=== PATIENT | male | born 1950 | race Caucasian/White ===

== ENCOUNTER 2018-05-08 13:00 | Outpatient (RCR) | payer MEDICARE, MEDICAID, SELFPAY ==
--- NOTE | 2017-08-01 13:52 | PT.OTN ---
Addendum entered and electronically signed by Carmenza Morales, PT 08/01/17 16:48: Transition note: On July 26, 2017 our therapy services consisting of Speech, Occupational, and Physical Therapy transitioned from the [employer] electronic documentation system to a new [employer] electronic documentation system.?? All documentation prior to July 26 can be found under [employer] saved data. From July 26 forward all medical record documentation will be in [email or web address]. Original Note: Current Diagnoses Other chronic pain (08/01/17) Radiculopathy, lumbar region (08/01/17) Abnormal posture (08/01/17) Weakness (08/01/17) Physical Therapy Treatment Note PT-OP-A Visit Information Start: 08/01/17 07:26 Freq: Status: Active Protocol: Activity Type Activity Date Activity User E-Sign Co-Sign Detail Recorded Client Recorded Date Recorded By Document 08/01/17 13:02 [facility] [id number] 08/01/17 13:52 [facility] 08/01/17 13:02 Out-Patient Physical Therapy Visit Information [Visit Information] -Visit Type Treatment Note -Visit Start Time 01:00 -Visit Stop Time 01:55 -Total Visit Minutes 55 -Visit Number 6 -Number of POKER IN Visits 0 PT-OP-C Subjective Start: 08/01/17 07:26 Freq: Status: Active Protocol: Activity Type Activity Date Activity User E-Sign Co-Sign Detail Recorded Client Recorded Date Recorded By Document 08/01/17 13:02 [facility] [id number] 08/01/17 13:52 [facility] 08/01/17 13:02 OP-PT Subjective [Patient Comments] -Patient Comments Reports DO took him off meloxicam so he has noticed inc mm soreness PT-OP-Q Treatments Start: 08/01/17 07:26 Freq: Status: Active Protocol: Activity Type Activity Date Activity User E-Sign Co-Sign Detail Recorded Client Recorded Date Recorded By Document 08/01/17 13:02 [facility] [id number] 08/01/17 13:52 [facility] 08/01/17 13:02 Manual Therapy Treatment [Soft Tissue Mobilization] 2 -Body Location Obturator internus R -Mobilization Type Sustained Pressure -Intensity/Depth Moderate -Body Position Prone 1 -Body Location QL (B) -Mobilization Type Rolling -Body Position Prone [Joint Mobilizations] 2 -Joint innominate -Direction caudal & ER FM -Body Position Prone 1 -Joint sacrum -Direction PA & caudal FM w/LTR -Grade III -Body Position Prone Neuro Re-Education Treatment [Balance Activities] 2 -Details wobble board fwd & to side with EC & head turns 1 -Details vertical & horizonal head turns with walking PT-OP-R Modalities Start: 08/01/17 07:26 Freq: Status: Active Protocol: Activity Type Activity Date Activity User E-Sign Co-Sign Detail Recorded Client Recorded Date Recorded By Document 08/01/17 13:02 [facility] [id number] 08/01/17 13:52 [facility] 08/01/17 13:02 Electric Stimulation [Electric Stimulation] Interferential Current (IFC) -Body Location LS -Duration (Minutes) 10 -Patient Position Prone -Combined With Heat/Cold Cold Pack PT-OP-T Assessment and Plan Start: 08/01/17 07:26 Freq: Status: Active Protocol: Activity Type Activity Date Activity User E-Sign Co-Sign Detail Recorded Client Recorded Date Recorded By Document 08/01/17 13:02 [facility] [id number] 08/01/17 13:52 [facility] 08/01/17 13:02 Physical Therapy Assessment [Assessment Summary] -Assessment Pt is improving with balance on board & with walking with head turns, but cont to have some stumbles with head turns . Pt reports feeling better after manual rx . Physical Therapy Plan [Frequency and Duration] -Frequency of Treatment 1x/Week -Plan of Care End Date 09/25/17 [Next Visit Focus/Plan] -Next Visit Plan Bosu balance exercises, changes in speed with gait , obstacles
--- NOTE | 2017-08-08 13:52 | PT.OTN ---
Current Diagnoses Other chronic pain (08/08/17) Radiculopathy, lumbar region (08/08/17) Abnormal posture (08/08/17) Weakness (08/08/17) Physical Therapy Treatment Note PT-OP-A Visit Information Start: 08/01/17 07:26 Freq: Status: Active Protocol: Document 08/08/17 13:00 [facility] (Rec: 08/08/17 13:52 [facility] [id number]) Out-Patient Physical Therapy Visit Information Visit Information Visit Type Treatment Note Visit Start Time 01:00 Visit Stop Time 01:55 Total Visit Minutes 55 Visit Number 7 Number of SPECIAL DAY CLASS TEACHER Visits 0 PT-OP-C Subjective Start: 08/01/17 07:26 Freq: Status: Active Protocol: Document 08/08/17 13:00 [facility] (Rec: 08/08/17 13:52 [facility] [id number]) OP-PT Subjective Patient Comments Patient Comments Reports thoracic feels tight today. PT-OP-Q Treatments Start: 08/01/17 07:26 Freq: Status: Active Protocol: Document 08/08/17 13:00 [facility] (Rec: 08/08/17 13:52 [facility] [id number]) Manual Therapy Treatment Soft Tissue Mobilization 3 Body Location T-spine paraspinals Mobilization Type Rolling Intensity/Depth Moderate 1 Body Location QL (B) Mobilization Type Rolling Body Position Prone Joint Mobilizations 3 Joint Thoracic Direction PA Grade III Comments FM w/deep breathing T5-12 2 Joint innominate Direction caudal & ER FM Body Position Prone 1 Joint sacrum Direction PA & caudal FM w/LTR Grade III Body Position Prone Neuro Re-Education Treatment Balance Activities 6 Details walking around cones Reps/Duration 6 laps 8 cones 5 Details speed changes Reps/Duration 4 laps of brandon 4 Details hurdles in brandon 3 Details bosu Comments fwd back & lat wt shifts 1 Details vertical & horizonal head turns with walking PT-OP-R Modalities Start: 08/01/17 07:26 Freq: Status: Active Protocol: Document 08/08/17 13:00 [facility] (Rec: 08/08/17 13:52 [facility] [id number]) Electric Stimulation Electric Stimulation Interferential Current (IFC) Body Location LS Duration (Minutes) 10 Patient Position Prone Combined With Heat/Cold Cold Pack PT-OP-T Assessment and Plan Start: 08/01/17 07:26 Freq: Status: Active Protocol: Document 08/08/17 13:00 [facility] (Rec: 08/08/17 13:52 [facility] [id number]) Physical Therapy Assessment Assessment Summary Assessment Pt had difficulty with going over hurdles with maintianing gait pattern, but did well with speed changes and improved ability to do vertical head turns. Pt had improved pelvic mobility but was very tight in thoracic. Physical Therapy Plan Frequency and Duration Frequency of Treatment 1x/Week Plan of Care End Date 09/25/17 Next Visit Focus/Plan Next Visit Plan Cont to work on advancement of balance.
--- NOTE | 2017-08-15 13:51 | PT.OTN ---
Current Diagnoses Other chronic pain (08/15/17) Radiculopathy, lumbar region (08/15/17) Abnormal posture (08/15/17) Weakness (08/15/17) Physical Therapy Treatment Note PT-OP-A Visit Information Start: 08/01/17 07:26 Freq: Status: Active Protocol: Document 08/15/17 12:59 [facility] (Rec: 08/15/17 13:50 [facility] [id number]) Out-Patient Physical Therapy Visit Information Visit Information Visit Type Treatment Note Visit Start Time 01:00 Visit Stop Time 01:55 Total Visit Minutes 55 Visit Number 8 Number of CARD CUTTER HELPER Visits 0 PT-OP-C Subjective Start: 08/01/17 07:26 Freq: Status: Active Protocol: Document 08/15/17 12:59 [facility] (Rec: 08/15/17 13:50 [facility] [id number]) OP-PT Subjective Patient Comments Patient Comments Reports being stiff around sacrum. PT-OP-Q Treatments Start: 08/01/17 07:26 Freq: Status: Active Protocol: Document 08/15/17 12:59 [facility] (Rec: 08/15/17 13:50 [facility] [id number]) Manual Therapy Treatment Soft Tissue Mobilization 2 Body Location Obturator internus R Mobilization Type Sustained Pressure Intensity/Depth Moderate Body Position Prone 1 Body Location QL (B) Mobilization Type Rolling Body Position Prone Joint Mobilizations 4 Joint hip Direction hip on axis ER B Grade III Body Position Prone 2 Joint innominate Direction caudal & ER FM Body Position Prone 1 Joint sacrum Direction PA & caudal FM w/LTR Grade III Body Position Prone Neuro Re-Education Treatment Balance Activities 6 Details walking around cones Reps/Duration 6 laps 8 cones 5 Details speed changes Reps/Duration 4 laps of brandon 4 Details hurdles in brandon Reps/Duration 4 laps 2 Details wobble board fwd & to side with EC & head turns 1 Details vertical & horizonal head turns with walking PT-OP-R Modalities Start: 08/01/17 07:26 Freq: Status: Active Protocol: Document 08/15/17 12:59 [facility] (Rec: 08/15/17 13:51 [facility] [id number]) Electric Stimulation Electric Stimulation Interferential Current (IFC) Body Location LS Duration (Minutes) 10 Patient Position Prone Combined With Heat/Cold Cold Pack PT-OP-T Assessment and Plan Start: 08/01/17 07:26 Freq: Status: Active Protocol: Document 08/15/17 12:59 [facility] (Rec: 08/15/17 13:50 [facility] [id number]) Physical Therapy Assessment Assessment Summary Assessment Pt is improving with his dynamic balance. Improved ability with head turns. Physical Therapy Plan Frequency and Duration Frequency of Treatment 1x/Week Plan of Care End Date 09/25/17 Next Visit Focus/Plan Next Visit Plan Cont to work on advancement of balance. Please Sign and Return: I have reviewed this Plan of Care and certify that the skilled therapy services above are required to meet the patient???s needs. Physician Signature Date Printed Name and Credentials Clinical Instructor Signature Printed Name and Credentials
--- NOTE | 2017-08-30 13:44 | PT.OTN ---
Current Diagnoses Other chronic pain (08/30/17) Radiculopathy, lumbar region (08/30/17) Abnormal posture (08/30/17) Weakness (08/30/17) Physical Therapy Treatment Note PT-OP-A Visit Information Start: 08/01/17 07:26 Freq: Status: Active Protocol: Document 08/30/17 12:58 [facility] (Rec: 08/30/17 13:44 [facility] [id number]) Out-Patient Physical Therapy Visit Information Visit Information Visit Type Treatment Note Visit Start Time 01:00 Visit Stop Time 01:55 Total Visit Minutes 55 Visit Number 9 Number of PRODUCTION GRAPHIC DESIGNER Visits 0 PT-OP-C Subjective Start: 08/01/17 07:26 Freq: Status: Active Protocol: Document 08/30/17 12:58 [facility] (Rec: 08/30/17 13:44 [facility] [id number]) OP-PT Subjective Patient Comments Patient Comments Reports being stiff around sacrum like usual PT-OP-Q Treatments Start: 08/01/17 07:26 Freq: Status: Active Protocol: Document 08/30/17 12:58 [facility] (Rec: 08/30/17 13:44 [facility] [id number]) Manual Therapy Treatment Soft Tissue Mobilization 2 Body Location Obturator internus L Mobilization Type Sustained Pressure Intensity/Depth Moderate Body Position Prone 1 Body Location QL (B) Mobilization Type Rolling Body Position Prone Joint Mobilizations 4 Joint hip Direction hip on axis ER B Grade III Body Position Prone 2 Joint innominate Direction ext, ER, caudal FM Body Position Prone 1 Joint sacrum Direction PA & caudal FM w/LTR Grade III Body Position Prone Neuro Re-Education Treatment Balance Activities 6 Details walking around cones Reps/Duration 6 laps 8 cones 5 Details speed changes Reps/Duration 4 laps of brandon 4 Details hurdles in brandon Reps/Duration 4 laps 2 Details wobble board fwd & to side with EC & head turns 1 Details vertical & horizonal head turns with walking PT-OP-R Modalities Start: 08/01/17 07:26 Freq: Status: Active Protocol: Document 08/30/17 12:58 [facility] (Rec: 08/30/17 13:44 [facility] [id number]) Electric Stimulation Electric Stimulation Interferential Current (IFC) Body Location LS Duration (Minutes) 10 Patient Position Prone Combined With Heat/Cold Cold Pack PT-OP-T Assessment and Plan Start: 08/01/17 07:26 Freq: Status: Active Protocol: Document 08/30/17 12:58 [facility] (Rec: 08/30/17 13:44 [facility] [id number]) Physical Therapy Assessment Assessment Summary Assessment Improved ability with negotiating hurdles & cones today. COnt tigthenss at sacrum & SI joints. Physical Therapy Plan Frequency and Duration Frequency of Treatment 1x/Week Plan of Care End Date 09/25/17 Next Visit Focus/Plan Next Note Type Progress Note Next Visit Plan Cont to work on advancement of balance. Please Sign and Return: I have reviewed this Plan of Care and certify that the skilled therapy services above are required to meet the patient?s needs. Physician Signature Date Printed Name and Credentials Clinical Instructor Signature Printed Name and Credentials
--- NOTE | 2017-09-05 14:09 | PT.OTN ---
Current Diagnoses Other chronic pain (09/05/17) Radiculopathy, lumbar region (09/05/17) Abnormal posture (09/05/17) Weakness (09/05/17) Physical Therapy Treatment Note PT-OP-A Visit Information Start: 08/01/17 07:26 Freq: Status: Active Protocol: Document 09/05/17 13:58 [facility] (Rec: 09/05/17 14:09 [facility] [id number]) Out-Patient Physical Therapy Visit Information Visit Information Visit Type Progress Note Visit Note 10 total visits Visit Start Time 01:00 Visit Stop Time 01:55 Total Visit Minutes 55 Visit Number 1 Number of DIRECTOR MARKET INTELLIGENCE Visits 0 PT-OP-C Subjective Start: 08/01/17 07:26 Freq: Status: Active Protocol: Document 09/05/17 13:58 [facility] (Rec: 09/05/17 14:09 [facility] [id number]) OP-PT Subjective Patient Comments Patient Comments Pt reports he is quite stiff in sacrum & thoracic. PT-OP-M Strength Start: 09/05/17 13:58 Freq: Status: Active Protocol: Document 09/05/17 13:58 [facility] (Rec: 09/05/17 14:09 [facility] [id number]) Hip Strength Hip Manual Muscle Testing Right Flexion (L2) 5 Normal Extension (S1) 4 Good Abduction 4- Good- External Rotation 5 Normal Internal Rotation 5 Normal Comments knee & ankle strength 5/5 B without pain; pain only with IR on R Left Flexion (L2) 5 Normal Extension (S1) 4 Good Abduction 4 Good External Rotation 5 Normal Internal Rotation 5 Normal PT-OP-Q Treatments Start: 08/01/17 07:26 Freq: Status: Active Protocol: Document 09/05/17 13:58 [facility] (Rec: 09/05/17 14:09 [facility] [id number]) Manual Therapy Treatment Soft Tissue Mobilization 3 Body Location T-spine paraspinals Mobilization Type Rolling Intensity/Depth Moderate 1 Body Location QL (B) Mobilization Type Rolling Body Position Prone Joint Mobilizations 4 Joint hip Direction hip on axis ER B Grade III Body Position Prone 3 Joint Thoracic Direction PA Grade III Comments FM w/deep breathing T5-12 2 Joint innominate Direction ext, ER, caudal FM Body Position Prone 1 Joint sacrum Direction PA & caudal FM w/LTR Grade III Body Position Prone Neuro Re-Education Treatment Other Activities 1 Details DGI Comments PT-OP-R Modalities Start: 08/01/17 07:26 Freq: Status: Active Protocol: Document 09/05/17 13:58 [facility] (Rec: 09/05/17 14:09 [facility] [id number]) Electric Stimulation Electric Stimulation Interferential Current (IFC) Body Location LS Duration (Minutes) 10 Patient Position Prone Combined With Heat/Cold Cold Pack PT-OP-T Assessment and Plan Start: 08/01/17 07:26 Freq: Status: Active Protocol: Document 09/05/17 13:58 [facility] (Rec: 09/05/17 14:09 [facility] [id number]) Physical Therapy Assessment Goals Eight Impairment DGI Short Term Goal (STG) 19 STG Duration improving Jail Goal (LTG) 24 LTG Duration 09/25/17 Seven Impairment core Housecleaner Floor Goal (LTG) 3/4 EFT, VCT, LPM LTG Duration 09/25/17 Six Impairment gait Jail Goal (LTG) abnormality to trace LTG Duration 09/25/17 Five Impairment MMT Jail Goal (LTG) 5/ to allow progression of activity tolerance LTG Duration 09/25/17-improving Four Impairment posture Jail Goal (LTG) achieved Three Impairment APRYL Jail Goal (LTG) 9 LTG Duration 09/25/17 Two Impairment pain Jail Goal (LTG) to 3/10 current LTG Duration 09/25/17-improving (4/10) One Impairment positions Short Term Goal (STG) sit to stand w/o pain STG Duration by 10/05/17 Housecleaner Floor Goal (LTG) no greater than 3/10 w/all activities LTG Duration by 11/06/17 Assessment Summary Assessment Today pt did not show much improvement in APRYL or DGI likely d/t pain. He has been improving with balance during sessions & is reporting overall better. Pt has demonstrated good strength gains. Physical Therapy Plan Frequency and Duration Frequency of Treatment 1x/Week Plan of Care End Date 09/25/17 Next Visit Focus/Plan Next Note Type Treatment Note Next Visit Plan Cont to work on advancement of balance. Please Sign and Return: I have reviewed this Plan of Care and certify that the skilled therapy services above are required to meet the patient?s needs. Physician Signature Date Printed Name and Credentials Clinical Instructor Signature Printed Name and Credentials
--- NOTE | 2017-09-05 14:09 | PT.OPPN ---
Current Diagnoses Other chronic pain (09/05/17) Radiculopathy, lumbar region (09/05/17) Abnormal posture (09/05/17) Weakness (09/05/17) Physical Therapy Progress Note PT-OP-A Visit Information Start: 08/01/17 07:26 Freq: Status: Active Protocol: Document 09/05/17 13:58 [facility] (Rec: 09/05/17 14:09 [facility] [id number]) Out-Patient Physical Therapy Visit Information Visit Information Visit Type Progress Note Visit Note 10 total visits Visit Start Time 01:00 Visit Stop Time 01:55 Total Visit Minutes 55 Visit Number 1 Number of VALIDATION SPECIALIST Visits 0 PT-OP-C Subjective Start: 08/01/17 07:26 Freq: Status: Active Protocol: Document 09/05/17 13:58 [facility] (Rec: 09/05/17 14:09 [facility] [id number]) OP-PT Subjective Patient Comments Patient Comments Pt reports he is quite stiff in sacrum & thoracic. PT-OP-M Strength Start: 09/05/17 13:58 Freq: Status: Active Protocol: Document 09/05/17 13:58 [facility] (Rec: 09/05/17 14:09 [facility] [id number]) Hip Strength Hip Manual Muscle Testing Right Flexion (L2) 5 Normal Extension (S1) 4 Good Abduction 4- Good- External Rotation 5 Normal Internal Rotation 5 Normal Comments knee & ankle strength 5/5 B without pain; pain only with IR on R Left Flexion (L2) 5 Normal Extension (S1) 4 Good Abduction 4 Good External Rotation 5 Normal Internal Rotation 5 Normal PT-OP-T Assessment and Plan Start: 08/01/17 07:26 Freq: Status: Active Protocol: Document 09/05/17 13:58 [facility] (Rec: 09/05/17 14:09 [facility] [id number]) Physical Therapy Assessment Goals Eight Impairment DGI Short Term Goal (STG) 19 STG Duration improving Chain Pegger Goal (LTG) 24 LTG Duration 09/25/17 Seven Impairment core Half-Way Goal (LTG) 3/4 EFT, VCT, LPM LTG Duration 09/25/17 Six Impairment gait Chain Pegger Goal (LTG) abnormality to trace LTG Duration 09/25/17 Five Impairment MMT Half-Way Goal (LTG) 5/5 to allow progression of activity tolerance LTG Duration 09/25/17-improving Four Impairment posture Half-Way Goal (LTG) achieved Three Impairment APRYL Chain Pegger Goal (LTG) 9 LTG Duration 09/25/17 Two Impairment pain Half-Way Goal (LTG) to 3/10 current LTG Duration 09/25/17-improving (/) One Impairment positions Short Term Goal (STG) sit to stand w/o pain STG Duration by 10/05/17 Chain Pegger Goal (LTG) no greater than 3/10 w/all activities LTG Duration by 11/06/17 Assessment Summary Assessment Today pt did not show much improvement in APRYL or DGI likely d/t pain. He has been improving with balance during sessions & is reporting overall better. Pt has demonstrated good strength gains. Physical Therapy Plan Frequency and Duration Frequency of Treatment 1x/Week Plan of Care End Date 09/25/17 Next Visit Focus/Plan Next Note Type Treatment Note Next Visit Plan Cont to work on advancement of balance.
--- NOTE | 2017-09-12 13:49 | PT.OTN ---
Current Diagnoses Other chronic pain (09/12/17) Radiculopathy, lumbar region (09/12/17) Abnormal posture (09/12/17) Weakness (09/12/17) Physical Therapy Treatment Note PT-OP-A Visit Information Start: 08/01/17 07:26 Freq: Status: Active Protocol: Document 09/12/17 13:01 [facility] (Rec: 09/12/17 13:49 [facility] [id number]) Out-Patient Physical Therapy Visit Information Visit Information Visit Type Treatment Note Visit Note 11 total Visit Start Time 01:00 Visit Stop Time 01:55 Total Visit Minutes 55 Visit Number 2 Number of DRAPERY HEMMER AUTOMATIC Visits 0 PT-OP-C Subjective Start: 08/01/17 07:26 Freq: Status: Active Protocol: Document 09/12/17 13:01 [facility] (Rec: 09/12/17 13:49 [facility] [id number]) OP-PT Subjective Patient Comments Patient Comments overall better today PT-OP-M Strength Start: 09/05/17 13:58 Freq: Status: Active Protocol: Document 09/05/17 13:58 [facility] (Rec: 09/05/17 14:09 [facility] [id number]) Hip Strength Hip Manual Muscle Testing Right Flexion (L2) 5 Normal Extension (S1) 4 Good Abduction 4- Good- External Rotation 5 Normal Internal Rotation 5 Normal Comments knee & ankle strength 5/5 B without pain; pain only with IR on R Left Flexion (L2) 5 Normal Extension (S1) 4 Good Abduction 4 Good External Rotation 5 Normal Internal Rotation 5 Normal PT-OP-Q Treatments Start: 08/01/17 07:26 Freq: Status: Active Protocol: Document 09/12/17 13:01 [facility] (Rec: 09/12/17 13:49 [facility] [id number]) Manual Therapy Treatment Soft Tissue Mobilization 1 Body Location QL (B) Mobilization Type Rolling Body Position Prone Joint Mobilizations 4 Joint hip Direction hip on axis ER B Grade III Body Position Prone 2 Joint innominate Direction ext, ER, caudal FM Body Position Prone 1 Joint sacrum Direction PA & caudal FM w/LTR Grade III Body Position Prone Neuro Re-Education Treatment Balance Activities 7 Details sidestep Equipment yellow tband Reps/Duration 2x20ft 4 Details hurdles in brandon Reps/Duration 4 laps Comments close then spread 2 Details wobble board fwd & to side with EC & head turns 1 Details vertical & horizonal head turns with walking PT-OP-R Modalities Start: 08/01/17 07:26 Freq: Status: Active Protocol: Document 09/12/17 13:01 [facility] (Rec: 09/12/17 13:49 [facility] [id number]) Electric Stimulation Electric Stimulation Interferential Current (IFC) Body Location LS Duration (Minutes) 10 Patient Position Prone Combined With Heat/Cold Cold Pack PT-OP-T Assessment and Plan Start: 08/01/17 07:26 Freq: Status: Active Protocol: Document 09/12/17 13:01 [facility] (Rec: 09/12/17 13:49 [facility] [id number]) Physical Therapy Assessment Goals Eight Impairment DGI Short Term Goal (STG) 19 STG Duration improving Associate Field Service Engineer Goal (LTG) 24 LTG Duration 09/25/17 Seven Impairment core Nursing Home Goal (LTG) 3/4 EFT, VCT, LPM LTG Duration 09/25/17 Six Impairment gait Nursing Home Goal (LTG) abnormality to trace LTG Duration 09/25/17 Five Impairment MMT Associate Field Service Engineer Goal (LTG) 5/5 to allow progression of activity tolerance LTG Duration 09/25/17-improving Four Impairment posture Associate Field Service Engineer Goal (LTG) achieved Three Impairment APRYL Associate Field Service Engineer Goal (LTG) 9 LTG Duration 09/25/17 Two Impairment pain Associate Field Service Engineer Goal (LTG) to 3/10 current LTG Duration 09/25/17-improving (4/10) One Impairment positions Short Term Goal (STG) sit to stand w/o pain STG Duration by 10/05/17 Nursing Home Goal (LTG) no greater than 3/10 w/all activities LTG Duration by 11/06/17 Assessment Summary Assessment Pt did better with balance exercises today. Difficulty with side step w/resistance. Physical Therapy Plan Frequency and Duration Frequency of Treatment 1x/Week Plan of Care End Date 09/25/17 Next Visit Focus/Plan Next Note Type Treatment Note Next Visit Plan Cont to work on advancement of balance.
--- NOTE | 2017-09-19 15:32 | PT.OTN ---
Current Diagnoses Other chronic pain (09/19/17) Radiculopathy, lumbar region (09/19/17) Abnormal posture (09/19/17) Weakness (09/19/17) Physical Therapy Treatment Note PT-OP-A Visit Information Start: 08/01/17 07:26 Freq: Status: Active Protocol: Document 09/19/17 13:02 [facility] (Rec: 09/19/17 15:31 [facility] [id number]) Out-Patient Physical Therapy Visit Information Visit Information Visit Type Treatment Note Visit Note 12 total Visit Start Time 01:05 Visit Stop Time 01:55 Total Visit Minutes 50 Visit Number 3 Number of JAPANESE INTERPRETER Visits 0 PT-OP-C Subjective Start: 08/01/17 07:26 Freq: Status: Active Protocol: Document 09/19/17 13:02 [facility] (Rec: 09/19/17 15:31 [facility] [id number]) OP-PT Subjective Patient Comments Patient Comments Reports sore d/t a lot of gardening and organizing PT-OP-M Strength Start: 09/05/17 13:58 Freq: Status: Active Protocol: Document 09/05/17 13:58 [facility] (Rec: 09/05/17 14:09 [facility] [id number]) Hip Strength Hip Manual Muscle Testing Right Flexion (L2) 5 Normal Extension (S1) 4 Good Abduction 4- Good- External Rotation 5 Normal Internal Rotation 5 Normal Comments knee & ankle strength 5/5 B without pain; pain only with IR on R Left Flexion (L2) 5 Normal Extension (S1) 4 Good Abduction 4 Good External Rotation 5 Normal Internal Rotation 5 Normal PT-OP-Q Treatments Start: 08/01/17 07:26 Freq: Status: Active Protocol: Document 09/19/17 13:02 [facility] (Rec: 09/19/17 15:31 [facility] [id number]) Manual Therapy Treatment Soft Tissue Mobilization 3 Body Location T-spine paraspinals Mobilization Type Rolling Intensity/Depth Moderate 1 Body Location QL (B) Mobilization Type Rolling Body Position Prone Joint Mobilizations 4 Joint hip Direction hip on axis ER B Grade III Body Position Prone 2 Joint innominate Direction ext, ER, caudal FM Body Position Prone 1 Joint sacrum Direction PA & caudal FM w/LTR Grade III Body Position Prone Neuro Re-Education Treatment Balance Activities 4 Details hurdles in brandon Reps/Duration 2 laps Comments spread 3 Details tandem and SLS 1 Details vertical & horizonal head turns with walking PT-OP-R Modalities Start: 08/01/17 07:26 Freq: Status: Active Protocol: Document 09/19/17 13:02 [facility] (Rec: 09/19/17 15:31 [facility] [id number]) Electric Stimulation Electric Stimulation Interferential Current (IFC) Body Location LS Duration (Minutes) 10 Patient Position Prone Combined With Heat/Cold Cold Pack PT-OP-T Assessment and Plan Start: 08/01/17 07:26 Freq: Status: Active Protocol: Document 09/19/17 13:02 [facility] (Rec: 09/19/17 15:31 [facility] [id number]) Physical Therapy Assessment Goals Eight Impairment DGI Short Term Goal (STG) 19 STG Duration improving Alf Goal (LTG) 24 LTG Duration 09/25/17 Seven Impairment core Alf Goal (LTG) 3/4 EFT, VCT, LPM LTG Duration 09/25/17 Six Impairment gait Pizza Chef Goal (LTG) abnormality to trace LTG Duration 09/25/17 Five Impairment MMT Alf Goal (LTG) 5/5 to allow progression of activity tolerance LTG Duration 09/25/17-improving Four Impairment posture Pizza Chef Goal (LTG) achieved Three Impairment APRYL Pizza Chef Goal (LTG) 9 LTG Duration 09/25/17 Two Impairment pain Pizza Chef Goal (LTG) to 3/10 current LTG Duration 09/25/17-improving (4/10) One Impairment positions Short Term Goal (STG) sit to stand w/o pain STG Duration by 10/05/17 Pizza Chef Goal (LTG) no greater than 3/10 w/all activities LTG Duration by 11/06/17 Assessment Summary Assessment Pt did better with vertical head turns and hurdles but cont to have weakness in glutes causing unsteadiness with dynamic balance exercises . Physical Therapy Plan Frequency and Duration Frequency of Treatment 1x/Week Plan of Care End Date 09/25/17 Next Visit Focus/Plan Next Note Type Progress Note Next Visit Plan Cont to work on advancement of balance.
--- NOTE | 2017-09-26 15:10 | PT.OTN ---
Current Diagnoses Other chronic pain (09/26/17) Radiculopathy, lumbar region (09/26/17) Abnormal posture (09/26/17) Weakness (09/26/17) Physical Therapy Treatment Note PT-OP-A Visit Information Start: 08/01/17 07:26 Freq: Status: Active Protocol: Document 09/26/17 14:52 [facility] (Rec: 09/26/17 15:10 [facility] [id number]) Out-Patient Physical Therapy Visit Information Visit Information Visit Type Progress Note Visit Note 13 total Visit Start Time 01:05 Visit Stop Time 01:55 Total Visit Minutes 50 Visit Number 1 Number of FRONT OFFICE JAVA DEVELOPER Visits 0 PT-OP-C Subjective Start: 08/01/17 07:26 Freq: Status: Active Protocol: Document 09/26/17 14:52 [facility] (Rec: 09/26/17 15:10 [facility] [id number]) OP-PT Subjective Patient Comments Patient Comments Reports he has still been doing a lot of organizing PT-OP-M Strength Start: 09/05/17 13:58 Freq: Status: Active Protocol: Document 09/05/17 13:58 [facility] (Rec: 09/05/17 14:09 [facility] [id number]) Hip Strength Hip Manual Muscle Testing Right Flexion (L2) 5 Normal Extension (S1) 4 Good Abduction 4- Good- External Rotation 5 Normal Internal Rotation 5 Normal Comments knee & ankle strength 5/5 B without pain; pain only with IR on R Left Flexion (L2) 5 Normal Extension (S1) 4 Good Abduction 4 Good External Rotation 5 Normal Internal Rotation 5 Normal PT-OP-Q Treatments Start: 08/01/17 07:26 Freq: Status: Active Protocol: Document 09/26/17 14:52 [facility] (Rec: 09/26/17 15:10 [facility] [id number]) Therapeutic Activity Therapeutic Activity 2 Name Lifting mechanics Comments no twisting & avoiding back bending 1 Name supported sitting positioning edu Comments Pt tends to sit in post tilt & slouched position Manual Therapy Treatment Soft Tissue Mobilization 3 Body Location T-spine & Lumbar paraspinals Mobilization Type Rolling Intensity/Depth Moderate 1 Body Location QL (B) Mobilization Type Rolling Body Position Prone Joint Mobilizations 1 Joint sacrum Direction PA & caudal FM w/LTR Grade III Body Position Prone Neuro Re-Education Treatment Balance Activities 5 Details vertical & horizontal head turns on bella foam Comments attempted stance on 1 dynadisc but too difficult for pt 4 Details hurdles in brandon Reps/Duration 4 laps Comments spread PT-OP-R Modalities Start: 08/01/17 07:26 Freq: Status: Active Protocol: Document 09/26/17 14:52 [facility] (Rec: 09/26/17 15:10 [facility] [id number]) Electric Stimulation Electric Stimulation Interferential Current (IFC) Body Location LS Duration (Minutes) 10 Patient Position Prone Combined With Heat/Cold Cold Pack PT-OP-T Assessment and Plan Start: 08/01/17 07:26 Freq: Status: Active Protocol: Document 09/26/17 14:52 [facility] (Rec: 09/26/17 15:10 [facility] [id number]) Physical Therapy Assessment Impairments Impairments Activity Tolerance Balance Functional Activities Functional Mobility Gait Pain Posture ROM Soft Tissue Mobility Strength Goals Eight Impairment DGI Short Term Goal (STG) 19 STG Duration improving Magician Helper Goal (LTG) 24 LTG Duration 11/27/17 Seven Impairment core Magician Helper Goal (LTG) 3/4 EFT, VCT, LPM LTG Duration 11/27/17 Six Impairment gait Magician Helper Goal (LTG) abnormality to trace LTG Duration 11/27/17 Five Impairment MMT Magician Helper Goal (LTG) 5/5 to allow progression of activity tolerance LTG Duration 11/27/17-improving Four Impairment posture Magician Helper Goal (LTG) achieved Three Impairment APRYL Alf Goal (LTG) 9 LTG Duration 11/27/17 Two Impairment pain Magician Helper Goal (LTG) to 3/10 current LTG Duration 11/27/17-improving (4/10) One Impairment positions Short Term Goal (STG) sit to stand w/o pain STG Duration by 10/26/17 Magician Helper Goal (LTG) no greater than 3/10 w/all activities LTG Duration by 11/27/17 Progress Towards Goals Progress Towards Goals Slow Progress due to Medical Issues Progress Comments Pt is slowly progressing d/t chronicity of original injuries. Assessment Summary Assessment Improved balance today with hurdles. Pt required sig re edu re: positioning in chair & lifting mechanics Physical Therapy Plan Frequency and Duration Frequency of Treatment 1x/Week Plan of Care Start Date 09/26/17 Plan of Care End Date 11/27/17 Therapeutic Interventions Therapeutic Interventions Balance Training Gait Training Home Exercise Program Joint Mobilizations Manual Therapy Soft Tissue Mobilization Taping Therapeutic Activities Therapeutic Exercises Modalities Cold Pack/Ice Massage Electric Stimulation Hot Packs Ultrasound Next Visit Focus/Plan Next Note Type Treatment Note Next Visit Plan Cont to work on advancement of balance & core first strategies for lifting
--- NOTE | 2017-09-26 15:10 | PT.OPPOC ---
Current Diagnoses Other chronic pain (09/26/17) Radiculopathy, lumbar region (09/26/17) Abnormal posture (09/26/17) Weakness (09/26/17) Provider Visit Care Team Role Provider Type Lita Devine MD Attending Provider Non-Staff Specialty: Medical Address: [address] [place] [phone] Email: Plan Of Care PT-OP-T Assessment and Plan Start: 08/01/17 07:26 Freq: Status: Active Protocol: Document 09/26/17 14:52 [facility] (Rec: 09/26/17 15:10 [facility] [id number]) Physical Therapy Assessment Impairments Impairments Activity Tolerance Balance Functional Activities Functional Mobility Gait Pain Posture ROM Soft Tissue Mobility Strength Goals Eight Impairment DGI Short Term Goal (STG) 19 STG Duration improving Senior Living Goal (LTG) 24 LTG Duration 11/27/17 Seven Impairment core Senior Living Goal (LTG) 3/4 EFT, VCT, LPM LTG Duration 11/27/17 Six Impairment gait Reel Fed Printer Goal (LTG) abnormality to trace LTG Duration 11/27/17 Five Impairment MMT Senior Living Goal (LTG) 5/5 to allow progression of activity tolerance LTG Duration 11/27/17-improving Four Impairment posture Reel Fed Printer Goal (LTG) achieved Three Impairment APRYL Senior Living Goal (LTG) 9 LTG Duration 11/27/17 Two Impairment pain Senior Living Goal (LTG) to 3/10 current LTG Duration 11/27/17-improving (4/10) One Impairment positions Short Term Goal (STG) sit to stand w/o pain STG Duration by 10/26/17 Reel Fed Printer Goal (LTG) no greater than 3/10 w/all activities LTG Duration by 11/27/17 Progress Towards Goals Progress Towards Goals Slow Progress due to Medical Issues Progress Comments Pt is slowly progressing d/t chronicity of original injuries. Assessment Summary Assessment Improved balance today with hurdles. Pt required sig re edu re: positioning in chair & lifting mechanics Physical Therapy Plan Frequency and Duration Frequency of Treatment 1x/Week Plan of Care Start Date 09/26/17 Plan of Care End Date 11/27/17 Therapeutic Interventions Therapeutic Interventions Balance Training Gait Training Home Exercise Program Joint Mobilizations Manual Therapy Soft Tissue Mobilization Taping Therapeutic Activities Therapeutic Exercises Modalities Cold Pack/Ice Massage Electric Stimulation Hot Packs Ultrasound Next Visit Focus/Plan Next Note Type Treatment Note Next Visit Plan Cont to work on advancement of balance & core first strategies for lifting Plan of Care Dates Plan of Care Start Date 09/26/17 Plan of Care End Date 11/27/17 Please Sign and Return: I have reviewed this Plan of Care and certify that the skilled therapy services above are required to meet the patient?s needs. Physician Signature Date Printed Name and Credentials Clinical Instructor Signature Printed Name and Credentials
--- NOTE | 2017-10-03 13:47 | PT.OTN ---
Current Diagnoses Other chronic pain (10/03/17) Radiculopathy, lumbar region (10/03/17) Abnormal posture (10/03/17) Weakness (10/03/17) Physical Therapy Treatment Note PT-OP-A Visit Information Start: 08/01/17 07:26 Freq: Status: Active Protocol: Document 10/03/17 13:01 [facility] (Rec: 10/03/17 13:47 [facility] [id number]) Out-Patient Physical Therapy Visit Information Visit Information Visit Type Progress Note Visit Note 14 total Visit Start Time 01:00 Visit Stop Time 01:50 Total Visit Minutes 50 Visit Number 2/ Number of FOOD TRADES ASSISTANTS Visits 0 PT-OP-C Subjective Start: 08/01/17 07:26 Freq: Status: Active Protocol: Document 10/03/17 13:01 [facility] (Rec: 10/03/17 13:47 [facility] [id number]) OP-PT Subjective Patient Comments Patient Comments Reports he noticed a big difference with change is positioning of his body when lifting PT-OP-M Strength Start: 09/05/17 13:58 Freq: Status: Active Protocol: Document 09/05/17 13:58 [facility] (Rec: 09/05/17 14:09 [facility] [id number]) Hip Strength Hip Manual Muscle Testing Right Flexion (L2) 5 Normal Extension (S1) 4 Good Abduction 4- Good- External Rotation 5 Normal Internal Rotation 5 Normal Comments knee & ankle strength 5/5 B without pain; pain only with IR on R Left Flexion (L2) 5 Normal Extension (S1) 4 Good Abduction 4 Good External Rotation 5 Normal Internal Rotation 5 Normal PT-OP-Q Treatments Start: 08/01/17 07:26 Freq: Status: Active Protocol: Document 10/03/17 13:01 [facility] (Rec: 10/03/17 13:47 [facility] [id number]) Manual Therapy Treatment Soft Tissue Mobilization 1 Body Location QL (B) Mobilization Type Myofascial Release Body Position Prone Comments w/LTR Joint Mobilizations 5 Joint lumbar Direction L transverse Comments FM w/R IR & basking seal 1 Joint sacrum Direction caudal FM w/LTR Grade III Body Position Prone Neuro Re-Education Treatment Balance Activities 4 Details hurdles in brandon Reps/Duration 4 laps Comments spread 3 Details tandem and SLS 1 Details vertical & horizonal head turns with walking PT-OP-R Modalities Start: 08/01/17 07:26 Freq: Status: Active Protocol: Document 10/03/17 13:01 [facility] (Rec: 10/03/17 13:47 [facility] [id number]) Electric Stimulation Electric Stimulation Interferential Current (IFC) Body Location LS Duration (Minutes) 10 Patient Position Prone Combined With Heat/Cold Cold Pack PT-OP-T Assessment and Plan Start: 08/01/17 07:26 Freq: Status: Active Protocol: Document 10/03/17 13:01 [facility] (Rec: 10/03/17 13:47 [facility] [id number]) Physical Therapy Assessment Goals Eight Impairment DGI Short Term Goal (STG) 19 STG Duration improving Senior Living Goal (LTG) 24 LTG Duration 11/27/17 Seven Impairment core Senior Living Goal (LTG) 3/4 EFT, VCT, LPM LTG Duration 11/27/17 Six Impairment gait Senior Living Goal (LTG) abnormality to trace LTG Duration 11/27/17 Five Impairment MMT Senior Living Goal (LTG) 5/5 to allow progression of activity tolerance LTG Duration 11/27/17-improving Three Impairment APRYL Computing Machine Operator Goal (LTG) 9 LTG Duration 11/27/17 Two Impairment pain Computing Machine Operator Goal (LTG) to 3/10 current LTG Duration 11/27/17-improving (4/10) One Impairment positions Short Term Goal (STG) sit to stand w/o pain STG Duration by 10/26/17 Senior Living Goal (LTG) no greater than 3/10 w/all activities LTG Duration by 11/27/17 Assessment Summary Assessment Improved sidebend after lumbar mobilization. Improved balance over hurdles & with head turns today Physical Therapy Plan Frequency and Duration Frequency of Treatment 1x/Week Plan of Care Start Date 09/26/17 Plan of Care End Date 11/27/17 Next Visit Focus/Plan Next Note Type Treatment Note Next Visit Plan Cont to work on advancement of balance & core first strategies for lifting
--- NOTE | 2017-10-10 16:11 | PT.OTN ---
Current Diagnoses Other chronic pain (10/10/17) Radiculopathy, lumbar region (10/10/17) Abnormal posture (10/10/17) Weakness (10/10/17) Physical Therapy Treatment Note PT-OP-A Visit Information Start: 08/01/17 07:26 Freq: Status: Active Protocol: Document 10/10/17 16:05 [facility] (Rec: 10/10/17 16:11 [facility] [id number]) Out-Patient Physical Therapy Visit Information Visit Information Visit Type Progress Note Visit Note 15 total Visit Start Time 13:00 Visit Stop Time 14:00 Total Visit Minutes 60 Visit Number 3/ Number of SENIOR MANAGER CREATIVE SERVICES Visits 0 PT-OP-C Subjective Start: 08/01/17 07:26 Freq: Status: Active Protocol: Document 10/10/17 16:05 [facility] (Rec: 10/10/17 16:11 [facility] [id number]) OP-PT Subjective Patient Comments Patient Comments Finished a lot of his work, but his back is sore. PT-OP-M Strength Start: 09/05/17 13:58 Freq: Status: Active Protocol: Document 09/05/17 13:58 [facility] (Rec: 09/05/17 14:09 [facility] [id number]) Hip Strength Hip Manual Muscle Testing Right Flexion (L2) 5 Normal Extension (S1) 4 Good Abduction 4- Good- External Rotation 5 Normal Internal Rotation 5 Normal Comments knee & ankle strength 5/5 B without pain; pain only with IR on R Left Flexion (L2) 5 Normal Extension (S1) 4 Good Abduction 4 Good External Rotation 5 Normal Internal Rotation 5 Normal PT-OP-Q Treatments Start: 08/01/17 07:26 Freq: Status: Active Protocol: Document 10/10/17 16:05 [facility] (Rec: 10/10/17 16:11 [facility] [id number]) Therapeutic Exercises Standing Exercises 1 Standing Exercise Name wall squat Therapeutic Activity Therapeutic Activity 2 Name Lifting mechanics Comments no twisting & avoiding back bending hip hinge & squat with yard stick on back Manual Therapy Treatment Soft Tissue Mobilization 3 Body Location T-spine & Lumbar paraspinals Mobilization Type Rolling Intensity/Depth Moderate 1 Body Location QL (B) Mobilization Type Myofascial Release Body Position Prone Comments w/LTR Joint Mobilizations 4 Joint hip Direction hip on axis ER B Grade III Body Position Prone 1 Joint sacrum Direction caudal FM w/LTR Grade III Body Position Prone PT-OP-R Modalities Start: 08/01/17 07:26 Freq: Status: Active Protocol: Document 10/10/17 13:01 [facility] (Rec: 10/10/17 16:11 [facility] [id number]) Electric Stimulation Electric Stimulation Interferential Current (IFC) Body Location LS Duration (Minutes) 15 Patient Position Prone Combined With Heat/Cold Cold Pack PT-OP-T Assessment and Plan Start: 08/01/17 07:26 Freq: Status: Active Protocol: Document 10/10/17 16:05 [facility] (Rec: 10/10/17 16:11 [facility] [id number]) Physical Therapy Assessment Goals Eight Impairment DGI Short Term Goal (STG) 19 STG Duration improving Residential Goal (LTG) 24 LTG Duration 11/27/17 Seven Impairment core Aircraft Painter Goal (LTG) 3/4 EFT, VCT, LPM LTG Duration 11/27/17 Six Impairment gait Aircraft Painter Goal (LTG) abnormality to trace LTG Duration 11/27/17 Five Impairment MMT Residential Goal (LTG) 5/5 to allow progression of activity tolerance LTG Duration 11/27/17-improving Three Impairment APRYL Aircraft Painter Goal (LTG) 9 LTG Duration 11/27/17 Two Impairment pain Residential Goal (LTG) to 3/10 current LTG Duration 11/27/17-improving (4/10) One Impairment positions Short Term Goal (STG) sit to stand w/o pain STG Duration by 10/26/17 Aircraft Painter Goal (LTG) no greater than 3/10 w/all activities LTG Duration by 11/27/17 Assessment Summary Assessment Pt unable to do hip hinge or squat without flexing spine. Pt had signifcant tightness in lumbar & thoracic paraspinals today. Physical Therapy Plan Frequency and Duration Frequency of Treatment 1x/Week Plan of Care Start Date 09/26/17 Plan of Care End Date 11/27/17 Next Visit Focus/Plan Next Note Type Treatment Note Next Visit Plan Cont to work on advancement of balance & core first strategies for lifting
--- NOTE | 2017-10-17 14:06 | PT.OTN ---
Current Diagnoses Other chronic pain (10/17/17) Radiculopathy, lumbar region (10/17/17) Abnormal posture (10/17/17) Weakness (10/17/17) Physical Therapy Treatment Note PT-OP-A Visit Information Start: 08/01/17 07:26 Freq: Status: Active Protocol: Document 10/17/17 13:48 [facility] (Rec: 10/17/17 14:06 [facility] [id number]) Out-Patient Physical Therapy Visit Information Visit Information Visit Type Treatment Note Visit Note 16 total Visit Start Time 13:00 Visit Stop Time 14:00 Total Visit Minutes 60 Visit Number 4/ Number of DIGITAL IMAGER Visits 0 PT-OP-C Subjective Start: 08/01/17 07:26 Freq: Status: Active Protocol: Document 10/17/17 13:48 [facility] (Rec: 10/17/17 14:06 [facility] [id number]) OP-PT Subjective Patient Comments Patient Comments Reports he has been working on his hip hinge PT-OP-M Strength Start: 09/05/17 13:58 Freq: Status: Active Protocol: Document 09/05/17 13:58 [facility] (Rec: 09/05/17 14:09 [facility] [id number]) Hip Strength Hip Manual Muscle Testing Right Flexion (L2) 5 Normal Extension (S1) 4 Good Abduction 4- Good- External Rotation 5 Normal Internal Rotation 5 Normal Comments knee & ankle strength 5/5 B without pain; pain only with IR on R Left Flexion (L2) 5 Normal Extension (S1) 4 Good Abduction 4 Good External Rotation 5 Normal Internal Rotation 5 Normal PT-OP-Q Treatments Start: 08/01/17 07:26 Freq: Status: Active Protocol: Document 10/17/17 13:48 [facility] (Rec: 10/17/17 14:06 [facility] [id number]) Therapeutic Exercises Standing Exercises 2 Standing Exercise Name hip hinge Comments extended time to work on neutral back position with ruler & butt to wall 1 Standing Exercise Name mini squat Reps/Minutes 15 Comments focus on back mechanics Therapeutic Activity Therapeutic Activity 2 Comments hinge hinge and avoiding flex & twisting at same time to look/pickling machine operator magazines 1 Name Discussed body position on leg press machine Neuro Re-Education Treatment Balance Activities 8 Details [place] 4 Details hurdles in brandon Reps/Duration 4 laps Comments spread 1 Details vertical & horizonal head turns with walking Reps/Duration 6 laps PT-OP-R Modalities Start: 08/01/17 07:26 Freq: Status: Active Protocol: Document 10/17/17 13:48 [facility] (Rec: 10/17/17 14:06 [facility] [id number]) Electric Stimulation Electric Stimulation Interferential Current (IFC) Body Location LS Duration (Minutes) 15 Patient Position Prone Combined With Heat/Cold Cold Pack PT-OP-T Assessment and Plan Start: 08/01/17 07:26 Freq: Status: Active Protocol: Document 10/17/17 13:48 [facility] (Rec: 10/17/17 14:06 [facility] [id number]) Physical Therapy Assessment Goals Eight Impairment DGI Short Term Goal (STG) 19 STG Duration improving Fretted Instruments Inspector Goal (LTG) 24 LTG Duration 11/27/17 Seven Impairment core Nursing Home Goal (LTG) 3/4 EFT, VCT, LPM LTG Duration 11/27/17 Six Impairment gait Fretted Instruments Inspector Goal (LTG) abnormality to trace LTG Duration 11/27/17 Five Impairment MMT Fretted Instruments Inspector Goal (LTG) 5/5 to allow progression of activity tolerance LTG Duration 11/27/17-improving Three Impairment APRYL Nursing Home Goal (LTG) 9 LTG Duration 11/27/17 Two Impairment pain Fretted Instruments Inspector Goal (LTG) to 3/10 current LTG Duration 11/27/17-improving (4/10) One Impairment positions Short Term Goal (STG) sit to stand w/o pain STG Duration by 10/26/17 Nursing Home Goal (LTG) no greater than 3/10 w/all activities LTG Duration by 11/27/17 Assessment Summary Assessment Pt had improved squat and hip hinge form. Pt doing well with balance exercises today and able to do head turns while amb with only minor deviations . Physical Therapy Plan Frequency and Duration Frequency of Treatment 1x/Week Plan of Care Start Date 09/26/17 Plan of Care End Date 11/27/17 Next Visit Focus/Plan Next Note Type Treatment Note Next Visit Plan Cont to work on advancement of balance & core first strategies for lifting
--- NOTE | 2017-10-24 16:22 | PT.OTN ---
Current Diagnoses Other chronic pain (10/24/17) Radiculopathy, lumbar region (10/24/17) Abnormal posture (10/24/17) Weakness (10/24/17) Physical Therapy Treatment Note PT-OP-A Visit Information Start: 08/01/17 07:26 Freq: Status: Active Protocol: Document 10/24/17 16:17 [facility] (Rec: 10/24/17 16:22 [facility] [id number]) Out-Patient Physical Therapy Visit Information Visit Information Visit Type Treatment Note Visit Note 17 total Visit Start Time 13:00 Visit Stop Time 13:55 Total Visit Minutes 55 Visit Number 5/ Number of AIR TRAFFIC CONTROL OPERATOR Visits 0 PT-OP-C Subjective Start: 08/01/17 07:26 Freq: Status: Active Protocol: Document 10/24/17 16:17 [facility] (Rec: 10/24/17 16:22 [facility] [id number]) OP-PT Subjective Patient Comments Patient Comments Reports his back has felt locked up. PT-OP-M Strength Start: 09/05/17 13:58 Freq: Status: Active Protocol: Document 09/05/17 13:58 [facility] (Rec: 09/05/17 14:09 [facility] [id number]) Hip Strength Hip Manual Muscle Testing Right Flexion (L2) 5 Normal Extension (S1) 4 Good Abduction 4- Good- External Rotation 5 Normal Internal Rotation 5 Normal Comments knee & ankle strength 5/5 B without pain; pain only with IR on R Left Flexion (L2) 5 Normal Extension (S1) 4 Good Abduction 4 Good External Rotation 5 Normal Internal Rotation 5 Normal PT-OP-Q Treatments Start: 08/01/17 07:26 Freq: Status: Active Protocol: Document 10/24/17 16:17 [facility] (Rec: 10/24/17 16:22 [facility] [email or web address]) Therapeutic Exercises Supine Exercises 2 Supine Exercise Name bridging Reps/Minutes 15 1 Supine Exercise Name Shan test stretch Comments mult review of sequence to avoid hurting LB Standing Exercises 3 Standing Exercise Name may Comments pt unabl to achieve post depression & was painful Manual Therapy Treatment Soft Tissue Mobilization 3 Body Location T-spine & Lumbar paraspinals Mobilization Type Rolling Intensity/Depth Moderate 1 Body Location QL (B) Mobilization Type Myofascial Release Body Position Prone Comments w/LTR Joint Mobilizations 4 Joint hip Direction hip on axis ER B Grade III Body Position Prone 2 Joint innominate Direction caudal R FM 1 Joint sacrum Direction caudal & PA FM w/LTR Grade III Body Position Prone PT-OP-R Modalities Start: 08/01/17 07:26 Freq: Status: Active Protocol: Document 10/24/17 16:17 [facility] (Rec: 10/24/17 16:22 [facility] [id number]) Electric Stimulation Electric Stimulation Interferential Current (IFC) Body Location LS Duration (Minutes) 15 Patient Position Prone Combined With Heat/Cold Cold Pack PT-OP-T Assessment and Plan Start: 08/01/17 07:26 Freq: Status: Active Protocol: Document 10/24/17 16:17 [facility] (Rec: 10/24/17 16:22 [facility] [email or web address]) Physical Therapy Assessment Goals Eight Impairment DGI Short Term Goal (STG) 19 STG Duration improving Mine Motor Engineer Goal (LTG) 24 LTG Duration 11/27/17 Seven Impairment core Longterm Goal (LTG) 3/4 EFT, VCT, LPM LTG Duration 11/27/17 Six Impairment gait Mine Motor Engineer Goal (LTG) abnormality to trace LTG Duration 11/27/17 Five Impairment MMT Longterm Goal (LTG) 5/5 to allow progression of activity tolerance LTG Duration 11/27/17-improving Three Impairment APRYL Longterm Goal (LTG) 9 LTG Duration 11/27/17 Two Impairment pain Longterm Goal (LTG) to 3/10 current LTG Duration 11/27/17-improving (4/10) One Impairment positions Short Term Goal (STG) sit to stand w/o pain STG Duration by 10/26/17 Mine Motor Engineer Goal (LTG) no greater than 3/10 w/all activities LTG Duration by 11/27/17 Assessment Summary Assessment Pt required cueing for performance of shan test stretch he has been doing to avoid excessive lumbar ext pressure. Improved mobility of pelvis with mobilizations. Physical Therapy Plan Frequency and Duration Frequency of Treatment 1x/Week Plan of Care Start Date 09/26/17 Plan of Care End Date 11/27/17 Next Visit Focus/Plan Next Note Type Treatment Note Next Visit Plan Cont to work on advancement of balance & core first strategies for lifting
--- NOTE | 2017-11-01 13:45 | PT.OTN ---
Current Diagnoses Other chronic pain (11/01/17) Radiculopathy, lumbar region (11/01/17) Abnormal posture (11/01/17) Weakness (11/01/17) Physical Therapy Treatment Note PT-OP-A Visit Information Start: 08/01/17 07:26 Freq: Status: Active Protocol: Document 11/01/17 13:00 [facility] (Rec: 11/01/17 13:44 [facility] [id number]) Out-Patient Physical Therapy Visit Information Visit Information Visit Type Treatment Note Visit Note 18 total Visit Start Time 13:00 Visit Stop Time 13:55 Total Visit Minutes 55 Visit Number 6 Number of CURTAIN FITTER Visits 0 PT-OP-C Subjective Start: 08/01/17 07:26 Freq: Status: Active Protocol: Document 11/01/17 13:00 [facility] (Rec: 11/01/17 13:44 [facility] [id number]) OP-PT Subjective Patient Comments Patient Comments reports saw DO this AM which helped w/LB but thoracic is tight. PT-OP-M Strength Start: 09/05/17 13:58 Freq: Status: Active Protocol: Document 09/05/17 13:58 [facility] (Rec: 09/05/17 14:09 [facility] [email or web address]) Hip Strength Hip Manual Muscle Testing Right Flexion (L2) 5 Normal Extension (S1) 4 Good Abduction 4- Good- External Rotation 5 Normal Internal Rotation 5 Normal Comments knee & ankle strength 5/5 B without pain; pain only with IR on R Left Flexion (L2) 5 Normal Extension (S1) 4 Good Abduction 4 Good External Rotation 5 Normal Internal Rotation 5 Normal PT-OP-Q Treatments Start: 08/01/17 07:26 Freq: Status: Active Protocol: Document 11/01/17 13:00 [facility] (Rec: 11/01/17 13:44 [facility] [id number]) Manual Therapy Treatment Soft Tissue Mobilization 3 Body Location T-spine & Lumbar paraspinals Mobilization Type Rolling Intensity/Depth Moderate 1 Body Location QL (B) Mobilization Type Myofascial Release Body Position Prone Comments w/LTR Joint Mobilizations 1 Joint sacrum Direction caudal & PA FM w/LTR Grade III Body Position Prone Neuro Re-Education Treatment Balance Activities 7 Details sidestep Equipment yellow tband Reps/Duration 1x20ft 6 Details tandem stance 5 Details fwd/back walk Equipment yellow band Reps/Duration 2x20ft 4 Details hurdles in brandon Reps/Duration 4 laps Comments spread 2 Details tandem walk Reps/Duration 4x20ft 1 Details vertical & horizonal head turns with walking Reps/Duration 6 laps PT-OP-R Modalities Start: 08/01/17 07:26 Freq: Status: Active Protocol: Document 11/01/17 13:00 [facility] (Rec: 11/01/17 13:44 [facility] [id number]) Electric Stimulation Electric Stimulation Interferential Current (IFC) Body Location LS Duration (Minutes) 15 Patient Position Prone Combined With Heat/Cold Cold Pack PT-OP-T Assessment and Plan Start: 08/01/17 07:26 Freq: Status: Active Protocol: Document 11/01/17 13:00 [facility] (Rec: 11/01/17 13:44 [facility] [id number]) Physical Therapy Assessment Goals Eight Impairment DGI Short Term Goal (STG) 19 STG Duration improving Residential Goal (LTG) 24 LTG Duration 11/27/17 Seven Impairment core Ophthalmic Dispenser Goal (LTG) 3/4 EFT, VCT, LPM LTG Duration 11/27/17 Six Impairment gait Ophthalmic Dispenser Goal (LTG) abnormality to trace LTG Duration 11/27/17 Five Impairment MMT Ophthalmic Dispenser Goal (LTG) 5/5 to allow progression of activity tolerance LTG Duration 11/27/17-improving Three Impairment APRYL Ophthalmic Dispenser Goal (LTG) 9 LTG Duration 11/27/17 Two Impairment pain Ophthalmic Dispenser Goal (LTG) to 3/10 current LTG Duration 11/27/17-improving (4/10) One Impairment positions Short Term Goal (STG) sit to stand w/o pain STG Duration by 10/26/17 Residential Goal (LTG) no greater than 3/10 w/all activities LTG Duration by 11/27/17 Assessment Summary Assessment Pt did well with vertical and horizonal head turns today with minor LOB occasionally Physical Therapy Plan Frequency and Duration Frequency of Treatment 1x/Week Plan of Care Start Date 09/26/17 Plan of Care End Date 11/27/17 Next Visit Focus/Plan Next Note Type Treatment Note Next Visit Plan Cont to advance core & balance
--- NOTE | 2017-11-07 14:11 | PT.OTN ---
Current Diagnoses Other chronic pain (11/07/17) Radiculopathy, lumbar region (11/07/17) Abnormal posture (11/07/17) Weakness (11/07/17) Physical Therapy Treatment Note PT-OP-A Visit Information Start: 08/01/17 07:26 Freq: Status: Active Protocol: Document 11/07/17 14:03 [facility] (Rec: 11/07/17 14:10 [facility] [id number]) Out-Patient Physical Therapy Visit Information Visit Information Visit Type Treatment Note Visit Note 19 total Visit Start Time 13:05 Visit Stop Time 14:00 Total Visit Minutes 55 Visit Number 7 Number of CALCINE FURNACE LOADER Visits 0 PT-OP-C Subjective Start: 08/01/17 07:26 Freq: Status: Active Protocol: Document 11/07/17 14:03 [facility] (Rec: 11/07/17 14:11 [facility] [id number]) OP-PT Subjective Patient Comments Patient Comments Pt reports overall doing okay today. PT-OP-M Strength Start: 09/05/17 13:58 Freq: Status: Active Protocol: Document 09/05/17 13:58 [facility] (Rec: 09/05/17 14:09 [facility] [email or web address]) Hip Strength Hip Manual Muscle Testing Right Flexion (L2) 5 Normal Extension (S1) 4 Good Abduction 4- Good- External Rotation 5 Normal Internal Rotation 5 Normal Comments knee & ankle strength 5/5 B without pain; pain only with IR on R Left Flexion (L2) 5 Normal Extension (S1) 4 Good Abduction 4 Good External Rotation 5 Normal Internal Rotation 5 Normal PT-OP-Q Treatments Start: 08/01/17 07:26 Freq: Status: Active Protocol: Document 11/07/17 14:03 [facility] (Rec: 11/07/17 14:10 [facility] [id number]) Gym Equipment Shuttle Recovery Bilateral Squats Details focus on avoiding hyperext but going to full ext Resistance 100 Shuttle Recovery Platform Stable Therapeutic Exercises Supine Exercises 3 Supine Exercise Name Figure 4 stretch 1 Supine Exercise Name Shan test stretch Comments mult review of sequence to avoid hurting LB Sitting Exercises 1 Sitting Exercise Name Figure 4 stretch Manual Therapy Treatment Joint Mobilizations 4 Joint hip Direction hip on axis ER B Grade III Body Position Prone 2 Joint innominate Direction caudal & IR/ER R FM 1 Joint sacrum Direction caudal & PA R FM w/LTR Grade III Body Position Prone Neuro Re-Education Treatment Balance Activities 8 Details step ups onto bosu Reps/Duration 10 Comments 1 rail 2 Details tandem walk Reps/Duration 4x20ft 1 Details vertical & horizonal head turns with walking Reps/Duration 6 laps PT-OP-R Modalities Start: 08/01/17 07:26 Freq: Status: Active Protocol: Document 11/07/17 14:03 [facility] (Rec: 11/07/17 14:10 [facility] [id number]) Electric Stimulation Electric Stimulation Interferential Current (IFC) Body Location LS Duration (Minutes) 15 Patient Position Prone Combined With Heat/Cold Cold Pack PT-OP-T Assessment and Plan Start: 08/01/17 07:26 Freq: Status: Active Protocol: Document 11/07/17 14:03 [facility] (Rec: 11/07/17 14:10 [facility] [id number]) Physical Therapy Assessment Goals Eight Impairment DGI Short Term Goal (STG) 19 STG Duration improving Personnel Director Goal (LTG) 24 LTG Duration 11/27/17 Seven Impairment core Intermediate Goal (LTG) 3/4 EFT, VCT, LPM LTG Duration 11/27/17 Six Impairment gait Personnel Director Goal (LTG) abnormality to trace LTG Duration 11/27/17 Five Impairment MMT Intermediate Goal (LTG) 5/5 to allow progression of activity tolerance LTG Duration 11/27/17-improving Three Impairment APRYL Personnel Director Goal (LTG) 9 LTG Duration 11/27/17 Two Impairment pain Personnel Director Goal (LTG) to 3/10 current LTG Duration 11/27/17-improving (4/10) One Impairment positions Short Term Goal (STG) sit to stand w/o pain STG Duration by 10/26/17 Personnel Director Goal (LTG) no greater than 3/10 w/all activities LTG Duration by 11/27/17 Assessment Summary Assessment Pt had difficulty going through end range knee ext with leg press without going into hyper ext. Cont cueing required for stretches for maintaining neutral back and avoiding in painful in SI region. Physical Therapy Plan Frequency and Duration Frequency of Treatment 1x/Week Plan of Care Start Date 09/26/17 Plan of Care End Date 11/27/17 Next Visit Focus/Plan Next Note Type Treatment Note Next Visit Plan Cont to advance core & balance
--- NOTE | 2017-11-14 13:43 | PT.OTN ---
Current Diagnoses Other chronic pain (11/14/17) Radiculopathy, lumbar region (11/14/17) Abnormal posture (11/14/17) Weakness (11/14/17) Physical Therapy Treatment Note PT-OP-A Visit Information Start: 08/01/17 07:26 Freq: Status: Active Protocol: Document 11/14/17 12:33 [facility] (Rec: 11/14/17 13:43 [facility] [id number]) Out-Patient Physical Therapy Visit Information Visit Information Visit Type Treatment Note Visit Note 20 total Visit Start Time 12:55 Visit Stop Time 13:50 Total Visit Minutes 55 Visit Number 8/ Number of INTAKE ASSESSOR Visits 0 PT-OP-C Subjective Start: 08/01/17 07:26 Freq: Status: Active Protocol: Document 11/14/17 12:33 [facility] (Rec: 11/14/17 13:43 [facility] [id number]) OP-PT Subjective Patient Comments Patient Comments Pt reports a 180 still throw him off. PT-OP-M Strength Start: 09/05/17 13:58 Freq: Status: Active Protocol: Document 09/05/17 13:58 [facility] (Rec: 09/05/17 14:09 [facility] [id number]) Hip Strength Hip Manual Muscle Testing Right Flexion (L2) 5 Normal Extension (S1) 4 Good Abduction 4- Good- External Rotation 5 Normal Internal Rotation 5 Normal Comments knee & ankle strength 5/5 B without pain; pain only with IR on R Left Flexion (L2) 5 Normal Extension (S1) 4 Good Abduction 4 Good External Rotation 5 Normal Internal Rotation 5 Normal PT-OP-Q Treatments Start: 08/01/17 07:26 Freq: Status: Active Protocol: Document 11/14/17 12:33 [facility] (Rec: 11/14/17 13:43 [facility] [id number]) Manual Therapy Treatment Soft Tissue Mobilization 3 Body Location T-spine & Lumbar paraspinals Mobilization Type Rolling Intensity/Depth Moderate 1 Body Location QL R Mobilization Type Myofascial Release Body Position Prone Comments w/LTR Joint Mobilizations 1 Joint sacrum Direction caudal & PA R FM w/LTR Grade III Body Position Prone Neuro Re-Education Treatment Balance Activities 8 Details step ups onto bosu Reps/Duration 10 Comments 1 rail 7 Details sidestep Equipment green Reps/Duration 1x20ft Comments w/o resistance also 6 Details tandem stance 2 Details tandem walk Reps/Duration 4x20ft 1 Details vertical & horizonal head turns with walking Reps/Duration 6 laps PT-OP-R Modalities Start: 08/01/17 07:26 Freq: Status: Active Protocol: Document 11/14/17 12:33 [facility] (Rec: 11/14/17 13:43 [facility] [id number]) Electric Stimulation Electric Stimulation Interferential Current (IFC) Body Location LS Duration (Minutes) 15 Patient Position Prone Combined With Heat/Cold Cold Pack PT-OP-T Assessment and Plan Start: 08/01/17 07:26 Freq: Status: Active Protocol: Document 11/14/17 12:33 [facility] (Rec: 11/14/17 13:43 [facility] [id number]) Physical Therapy Assessment Goals Eight Impairment DGI Short Term Goal (STG) 19 STG Duration improving Custodial Goal (LTG) 24 LTG Duration 11/27/17 Seven Impairment core Gravity Prospecting Supervisor Goal (LTG) 3/4 EFT, VCT, LPM LTG Duration 11/27/17 Six Impairment gait Gravity Prospecting Supervisor Goal (LTG) abnormality to trace LTG Duration 11/27/17 Five Impairment MMT Custodial Goal (LTG) 5/5 to allow progression of activity tolerance LTG Duration 11/27/17-improving Three Impairment APRYL Custodial Goal (LTG) 9 LTG Duration 11/27/17 Two Impairment pain Custodial Goal (LTG) to 3/10 current LTG Duration 11/27/17-improving (4/10) One Impairment positions Short Term Goal (STG) sit to stand w/o pain STG Duration by 10/26/17 Gravity Prospecting Supervisor Goal (LTG) no greater than 3/10 w/all activities LTG Duration by 11/27/17 Assessment Summary Assessment Pt had difficulty with step ups if he did not use rail. Required rail to maintain steadiness & had difficulty with side steps with avoiding lat trunk lean. Physical Therapy Plan Frequency and Duration Frequency of Treatment 1x/Week Plan of Care Start Date 09/26/17 Plan of Care End Date 11/27/17 Next Visit Focus/Plan Next Note Type Progress Note Next Visit Plan Re-assess balance & gait
--- NOTE | 2017-11-21 14:56 | PT.OTN ---
Current Diagnoses Other chronic pain (11/21/17) Radiculopathy, lumbar region (11/21/17) Abnormal posture (11/21/17) Weakness (11/21/17) Physical Therapy Treatment Note PT-OP-A Visit Information Start: 08/01/17 07:26 Freq: Status: Active Protocol: Document 11/21/17 12:44 [facility] (Rec: 11/21/17 13:48 [facility] [id number]) Out-Patient Physical Therapy Visit Information Visit Information Visit Type Treatment Note Visit Note 21 total Visit Start Time 13:00 Visit Stop Time 13:55 Total Visit Minutes 55 Visit Number 04/06 Number of OLIVE PACKER Visits 0 PT-OP-C Subjective Start: 08/01/17 07:26 Freq: Status: Active Protocol: Document 11/21/17 12:44 [facility] (Rec: 11/21/17 13:48 [facility] [id number]) OP-PT Subjective Patient Comments Patient Comments Pain on average is about 4-5/ 10. Reoprts no major spikes but some up to 6/10 Patient Questionnaires Oswestry Low Back Index Oswestry Score 28 Oswestry Impairment 20 to 39% Impaired (Score 20- 39) PT-OP-D Balance Start: 08/01/17 07:26 Freq: Status: Active Protocol: Document 11/21/17 12:44 [facility] (Rec: 11/21/17 13:48 [facility] [id number]) Balance Tests Other Other Balance Tests Performed [facility] PT-OP-M Strength Start: 09/05/17 13:58 Freq: Status: Active Protocol: Document 11/21/17 12:44 [facility] (Rec: 11/21/17 13:48 [facility] [id number]) Hip Strength Hip Manual Muscle Testing Right Flexion (L2) 5 Normal Abduction 4+ Good+ External Rotation 4+ Good+ Internal Rotation 4- Good- Comments pain in R hip w/ IR Left Flexion (L2) 5 Normal Abduction 4+ Good+ External Rotation 5 Normal Internal Rotation 5 Normal Comments VCT:2/5; EFT:5/5; LPM L fwd AP : 2/5 PA:2/5 R fwd AP: 2/5 PA:2/5 PT-OP-Q Treatments Start: 08/01/17 07:26 Freq: Status: Active Protocol: Document 11/21/17 12:44 [facility] (Rec: 11/21/17 13:48 [facility] [id number]) Therapeutic Exercises Sidelying Exercises 1 Sidelying Exercise Name Reverse crys Reps/Minutes 15 Comments tried resistance but too painful Manual Therapy Treatment Soft Tissue Mobilization 2 Body Location R iliacus Joint Mobilizations 4 Joint hip Direction hip on axis IR R Grade III Body Position Prone 2 Joint innominate Direction caudal & IR/ER R FM 1 Joint sacrum Direction caudal & PA R FM w/LTR Grade III Body Position Prone Neuro Re-Education Treatment Balance Activities 6 Details semitandem black tdisc 3 Details standing on dynadisc PT-OP-R Modalities Start: 08/01/17 07:26 Freq: Status: Active Protocol: Document 11/21/17 12:44 [facility] (Rec: 11/21/17 13:48 [facility] [id number]) Electric Stimulation Electric Stimulation Interferential Current (IFC) Body Location LS Duration (Minutes) 15 Patient Position Prone Combined With Heat/Cold Cold Pack PT-OP-T Assessment and Plan Start: 08/01/17 07:26 Freq: Status: Active Protocol: Document 11/21/17 12:44 [facility] (Rec: 11/21/17 13:48 [facility] [id number]) Physical Therapy Assessment Goals Eight Impairment DGI Short Term Goal (STG) 19 STG Duration achieved Mcc Goal (LTG) 24 LTG Duration 01/21/18 Seven Impairment core Assistant Gm Of Content & Delivery Goal (LTG) 3/5 EFT, VCT, LPM LTG Duration 01/21/18-improving Six Impairment gait Mcc Goal (LTG) abnormality to trace LTG Duration 01/21/18-excellent progress Five Impairment MMT Mcc Goal (LTG) 5/5 to allow progression of activity tolerance LTG Duration 12/27/17-improving Three Impairment APRYL Mcc Goal (LTG) 9 LTG Duration 01/21/18 Two Impairment pain Assistant Gm Of Content & Delivery Goal (LTG) to 3/10 current LTG Duration 12/27/17-improving (4/10) One Impairment positions Short Term Goal (STG) sit to stand w/o pain STG Duration achieved Assistant Gm Of Content & Delivery Goal (LTG) no greater than 3/10 w/all activities LTG Duration by 01/21/18 Assessment Summary Assessment Pt cont to progress slowly with balance and strength. No longer a fall risk with DGI and is improving with lifting mechanics. Physical Therapy Plan Frequency and Duration Frequency of Treatment 1x/Week Plan of Care Start Date 11/21/17 Plan of Care End Date 01/21/18 Therapeutic Interventions Therapeutic Interventions Aquatic Therapy Balance Training Gait Training Home Exercise Program Joint Mobilizations Manual Therapy Soft Tissue Mobilization Taping Therapeutic Exercises Modalities Cold Pack/Ice Massage Electric Stimulation Hot Packs Traction- Mechanical Ultrasound Next Visit Focus/Plan Next Note Type Treatment Note Next Visit Plan Cont to advance core & balance
--- NOTE | 2017-11-21 14:57 | PT.OPPN ---
Current Diagnoses Other chronic pain (11/21/17) Radiculopathy, lumbar region (11/21/17) Abnormal posture (11/21/17) Weakness (11/21/17) Physical Therapy Progress Note PT-OP-A Visit Information Start: 08/01/17 07:26 Freq: Status: Active Protocol: Document 11/21/17 12:44 [facility] (Rec: 11/21/17 13:48 [facility] [id number]) Out-Patient Physical Therapy Visit Information Visit Information Visit Type Treatment Note Visit Note 21 total Visit Start Time 13:00 Visit Stop Time 13:55 Total Visit Minutes 55 Visit Number 04/06 Number of CARDIO TECH Visits 0 PT-OP-C Subjective Start: 08/01/17 07:26 Freq: Status: Active Protocol: Document 11/21/17 12:44 [facility] (Rec: 11/21/17 13:48 [facility] [id number]) OP-PT Subjective Patient Comments Patient Comments Pain on average is about 4-5/ 10. Reoprts no major spikes but some up to 6/10 Patient Questionnaires Oswestry Low Back Index Oswestry Score 28 Oswestry Impairment 20 to 39% Impaired (Score 20- 39) PT-OP-D Balance Start: 08/01/17 07:26 Freq: Status: Active Protocol: Document 11/21/17 12:44 [facility] (Rec: 11/21/17 13:48 [facility] [id number]) Balance Tests Other Other Balance Tests Performed [facility] PT-OP-M Strength Start: 09/05/17 13:58 Freq: Status: Active Protocol: Document 11/21/17 12:44 [facility] (Rec: 11/21/17 13:48 [facility] [id number]) Hip Strength Hip Manual Muscle Testing Right Flexion (L2) 5 Normal Abduction 4+ Good+ External Rotation 4+ Good+ Internal Rotation 4- Good- Comments pain in R hip w/ IR Left Flexion (L2) 5 Normal Abduction 4+ Good+ External Rotation 5 Normal Internal Rotation 5 Normal Comments VCT:2/5; EFT:5/5; LPM L fwd AP : 2/5 PA:2/5 R fwd AP: 2/5 PA:2/5 PT-OP-T Assessment and Plan Start: 08/01/17 07:26 Freq: Status: Active Protocol: Document 11/21/17 12:44 [facility] (Rec: 11/21/17 13:48 [facility] [id number]) Physical Therapy Assessment Goals Eight Impairment DGI Short Term Goal (STG) 19 STG Duration achieved Leather Cleaner Goal (LTG) 24 LTG Duration 01/21/18 Seven Impairment core Leather Cleaner Goal (LTG) 3/5 EFT, VCT, LPM LTG Duration 01/21/18-improving Six Impairment gait Leather Cleaner Goal (LTG) abnormality to trace LTG Duration 01/21/18-excellent progress Five Impairment MMT Care Home Goal (LTG) 5/5 to allow progression of activity tolerance LTG Duration 12/27/17-improving Three Impairment APRYL Care Home Goal (LTG) 9 LTG Duration 01/21/18 Two Impairment pain Leather Cleaner Goal (LTG) to 3/10 current LTG Duration 12/27/17-improving (4/10) One Impairment positions Short Term Goal (STG) sit to stand w/o pain STG Duration achieved Leather Cleaner Goal (LTG) no greater than 3/10 w/all activities LTG Duration by 01/21/18 Assessment Summary Assessment Pt cont to progress slowly with balance and strength. No longer a fall risk with DGI and is improving with lifting mechanics. Physical Therapy Plan Frequency and Duration Frequency of Treatment 1x/Week Plan of Care Start Date 11/21/17 Plan of Care End Date 01/21/18 Therapeutic Interventions Therapeutic Interventions Aquatic Therapy Balance Training Gait Training Home Exercise Program Joint Mobilizations Manual Therapy Soft Tissue Mobilization Taping Therapeutic Exercises Modalities Cold Pack/Ice Massage Electric Stimulation Hot Packs Traction- Mechanical Ultrasound Next Visit Focus/Plan Next Note Type Treatment Note Next Visit Plan Cont to advance core & balance
--- NOTE | 2017-11-21 14:57 | PT.OPPOC ---
Current Diagnoses Other chronic pain (11/21/17) Radiculopathy, lumbar region (11/21/17) Abnormal posture (11/21/17) Weakness (11/21/17) Provider Visit Care Team Role Provider Type Carina Hester DO Attending Provider Non-Staff Specialty: Family Practice Address: [address] [place] [address], [id number] Email: Plan Of Care PT-OP-T Assessment and Plan Start: 08/01/17 07:26 Freq: Status: Active Protocol: Document 11/21/17 12:44 [facility] (Rec: 11/21/17 13:48 [facility] [id number]) Physical Therapy Assessment Goals Eight Impairment DGI Short Term Goal (STG) 19 STG Duration achieved Examination Supervisor Goal (LTG) 24 LTG Duration 01/21/18 Seven Impairment core Care Home Goal (LTG) 3/5 EFT, VCT, LPM LTG Duration 01/21/18-improving Six Impairment gait Examination Supervisor Goal (LTG) abnormality to trace LTG Duration 01/21/18-excellent progress Five Impairment MMT Care Home Goal (LTG) 5/5 to allow progression of activity tolerance LTG Duration 12/27/17-improving Three Impairment APRYL Examination Supervisor Goal (LTG) 9 LTG Duration 01/21/18 Two Impairment pain Care Home Goal (LTG) to 3/10 current LTG Duration 12/27/17-improving (4/10) One Impairment positions Short Term Goal (STG) sit to stand w/o pain STG Duration achieved Care Home Goal (LTG) no greater than 3/10 w/all activities LTG Duration by 01/21/18 Assessment Summary Assessment Pt cont to progress slowly with balance and strength. No longer a fall risk with DGI and is improving with lifting mechanics. Physical Therapy Plan Frequency and Duration Frequency of Treatment 1x/Week Plan of Care Start Date 11/21/17 Plan of Care End Date 01/21/18 Therapeutic Interventions Therapeutic Interventions Aquatic Therapy Balance Training Gait Training Home Exercise Program Joint Mobilizations Manual Therapy Soft Tissue Mobilization Taping Therapeutic Exercises Modalities Cold Pack/Ice Massage Electric Stimulation Hot Packs Traction- Mechanical Ultrasound Next Visit Focus/Plan Next Note Type Treatment Note Next Visit Plan Cont to advance core & balance Plan of Care Dates Plan of Care Start Date 11/21/17 Plan of Care End Date 01/21/18 Please Sign and Return: I have reviewed this Plan of Care and certify that the skilled therapy services above are required to meet the patient?s needs. Physician Signature Date Printed Name and Credentials Clinical Instructor Signature Printed Name and Credentials
--- NOTE | 2017-12-12 15:17 | PT.OTN ---
Current Diagnoses Other chronic pain (12/12/17) Radiculopathy, lumbar region (12/12/17) Abnormal posture (12/12/17) Weakness (12/12/17) Physical Therapy Treatment Note PT-OP-A Visit Information Start: 08/01/17 07:26 Freq: Status: Active Protocol: Document 12/12/17 15:10 [facility] (Rec: 12/12/17 15:16 [facility] [id number]) Out-Patient Physical Therapy Visit Information Visit Information Visit Type Treatment Note Visit Note 22 total Visit Start Time 13:00 Visit Stop Time 13:55 Total Visit Minutes 55 Visit Number / Number of PACKAGER HEAD Visits 0 PT-OP-C Subjective Start: 08/01/17 07:26 Freq: Status: Active Protocol: Document 12/12/17 15:10 [facility] (Rec: 12/12/17 15:16 [facility] [id number]) OP-PT Subjective Patient Comments Patient Comments Pt reports he saw the DO wed and he worked on his iliacus also. PT-OP-D Balance Start: 08/01/17 07:26 Freq: Status: Active Protocol: Document 11/21/17 12:44 [facility] (Rec: 11/21/17 13:48 [facility] [id number]) Balance Tests Other Other Balance Tests Performed DGI PT-OP-M Strength Start: 09/05/17 13:58 Freq: Status: Active Protocol: Document 11/21/17 12:44 [facility] (Rec: 11/21/17 13:48 [facility] [id number]) Hip Strength Hip Manual Muscle Testing Right Flexion (L2) 5 Normal Abduction 4+ Good+ External Rotation 4+ Good+ Internal Rotation 4- Good- Comments pain in R hip w/ IR Left Flexion (L2) 5 Normal Abduction 4+ Good+ External Rotation 5 Normal Internal Rotation 5 Normal Comments VCT:2/5; EFT:5/5; LPM L fwd AP : 2/5 PA:2/5 R fwd AP: 2/5 PA:2/5 PT-OP-Q Treatments Start: 08/01/17 07:26 Freq: Status: Active Protocol: Document 12/12/17 15:10 [facility] (Rec: 12/12/17 15:16 [facility] [id number]) Manual Therapy Treatment Soft Tissue Mobilization 3 Body Location Visceral Mobilization Type Other Intensity/Depth Moderate Body Position Hooklying Comments FM general R to L and L to R w /LTR 2 Body Location R iliacus Self-Care/Home Management Treatment Education Other Education edu on hip flexor anatomy & importance of good mobility within iliacus PT-OP-R Modalities Start: 08/01/17 07:26 Freq: Status: Active Protocol: Document 12/12/17 15:10 [facility] (Rec: 12/12/17 15:17 [facility] [id number]) Electric Stimulation Electric Stimulation Interferential Current (IFC) Body Location LS Duration (Minutes) 15 Patient Position Prone Combined With Heat/Cold Cold Pack PT-OP-T Assessment and Plan Start: 08/01/17 07:26 Freq: Status: Active Protocol: Document 12/12/17 15:10 [facility] (Rec: 12/12/17 15:16 [facility] [id number]) Physical Therapy Assessment Goals Eight Impairment DGI Short Term Goal (STG) 19 STG Duration achieved Stockroom Coordinator Goal (LTG) 24 LTG Duration 01/21/18 Seven Impairment core Senior Care Goal (LTG) 3/5 EFT, VCT, LPM LTG Duration 01/21/18-improving Six Impairment gait Senior Care Goal (LTG) abnormality to trace LTG Duration 01/21/18-excellent progress Five Impairment MMT Senior Care Goal (LTG) 5/5 to allow progression of activity tolerance LTG Duration 12/27/17-improving Three Impairment APRYL Stockroom Coordinator Goal (LTG) 9 LTG Duration 01/21/18 Two Impairment pain Senior Care Goal (LTG) to 3/10 current LTG Duration 12/27/17-improving (4/10) One Impairment positions Short Term Goal (STG) sit to stand w/o pain STG Duration achieved Stockroom Coordinator Goal (LTG) no greater than 3/10 w/all activities LTG Duration by 01/21/18 Assessment Summary Assessment Pt improved with lumbar rotation after visceral mobs and had dec back tightness on R after visceral mobs. Also dec iliacus limitations after STM to iliacus & visceral mobs . Physical Therapy Plan Frequency and Duration Frequency of Treatment 1x/Week Plan of Care Start Date 11/21/17 Plan of Care End Date 01/21/18 Next Visit Focus/Plan Next Note Type Treatment Note Next Visit Plan Cont to advance core & balance & visceral mobility to inc lumbar mobility
--- NOTE | 2017-12-19 13:01 | PT.OTN ---
Current Diagnoses Other chronic pain (12/19/17) Radiculopathy, lumbar region (12/19/17) Abnormal posture (12/19/17) Weakness (12/19/17) Physical Therapy Treatment Note PT-OP-A Visit Information Start: 08/01/17 07:26 Freq: Status: Active Protocol: Document 12/19/17 13:00 [facility] (Rec: 12/21/17 12:59 [facility] [id number]) Out-Patient Physical Therapy Visit Information Visit Information Visit Type Treatment Note Visit Note 23 total Visit Start Time 13:00 Visit Stop Time 13:55 Total Visit Minutes 55 Visit Number 3/ Number of MILLING PLANER OPERATOR Visits 0 PT-OP-C Subjective Start: 08/01/17 07:26 Freq: Status: Active Protocol: Document 12/19/17 13:00 [facility] (Rec: 12/21/17 13:00 [facility] [id number]) OP-PT Subjective Patient Comments Patient Comments Pt reports compliance with all exercises & cont gym work. Reports he has done quite a bit of lifting over the past couple days so is a little sore. PT-OP-D Balance Start: 08/01/17 07:26 Freq: Status: Active Protocol: Document 11/21/17 12:44 [facility] (Rec: 11/21/17 13:48 [facility] [id number]) Balance Tests Other Other Balance Tests Performed PT-OP-M Strength Start: 09/05/17 13:58 Freq: Status: Active Protocol: Document 11/21/17 12:44 [facility] (Rec: 11/21/17 13:48 [facility] [id number]) Hip Strength Hip Manual Muscle Testing Right Flexion (L2) 5 Normal Abduction 4+ Good+ External Rotation 4+ Good+ Internal Rotation 4- Good- Comments pain in R hip w/ IR Left Flexion (L2) 5 Normal Abduction 4+ Good+ External Rotation 5 Normal Internal Rotation 5 Normal Comments VCT:2/5; EFT:5/5; LPM L fwd AP : 2/5 PA:2/5 R fwd AP: 2/5 PA:2/5 PT-OP-Q Treatments Start: 08/01/17 07:26 Freq: Status: Active Protocol: Document 12/19/17 13:00 [facility] (Rec: 12/21/17 12:59 [facility] [id number]) Manual Therapy Treatment Soft Tissue Mobilization 1 Body Location QL R Mobilization Type Myofascial Release Body Position Prone Comments w/LTR Joint Mobilizations 4 Joint hip Direction hip on axis ER & IRR Grade III Body Position Prone 1 Joint sacrum Direction caudal & PA R FM w/LTR Grade III Body Position Prone Neuro Re-Education Treatment Balance Activities 8 Details standing on bosu with focus on balance 7 Details sidestep Reps/Duration 1x20ft Comments w/o resistance 1 Details vertical & horizonal head turns with walking Reps/Duration 6 laps PT-OP-R Modalities Start: 08/01/17 07:26 Freq: Status: Active Protocol: Document 12/19/17 13:00 [facility] (Rec: 12/21/17 12:59 [place] [id number]) Electric Stimulation Electric Stimulation Interferential Current (IFC) Body Location LS Duration (Minutes) 15 Patient Position Prone Combined With Heat/Cold Cold Pack PT-OP-T Assessment and Plan Start: 08/01/17 07:26 Freq: Status: Active Protocol: Document 12/19/17 13:00 [facility] (Rec: 12/21/17 12:59 [place] [id number]) Physical Therapy Assessment Goals Eight Impairment DGI Short Term Goal (STG) 19 STG Duration achieved Horticulture Teacher Goal (LTG) 24 LTG Duration 01/21/18 Seven Impairment core Horticulture Teacher Goal (LTG) 3/5 EFT, VCT, LPM LTG Duration 01/21/18-improving Six Impairment gait Horticulture Teacher Goal (LTG) abnormality to trace LTG Duration 01/21/18-excellent progress Five Impairment MMT Senior Living Goal (LTG) 5/5 to allow progression of activity tolerance LTG Duration 12/27/17-improving Three Impairment APRYL Senior Living Goal (LTG) 9 LTG Duration 01/21/18 Two Impairment pain Horticulture Teacher Goal (LTG) to 3/10 current LTG Duration 12/27/17-improving (4/10) One Impairment positions Short Term Goal (STG) sit to stand w/o pain STG Duration achieved Horticulture Teacher Goal (LTG) no greater than 3/10 w/all activities LTG Duration by 01/21/18 Assessment Summary Assessment Pt cont to require core stability for uneven surfaces. He cont to gradually improve with mobility of hip and pelvis and does report best pain control recently. Physical Therapy Plan Frequency and Duration Frequency of Treatment 1x/Week Plan of Care Start Date 11/21/17 Plan of Care End Date 01/21/18 Next Visit Focus/Plan Next Note Type Treatment Note Next Visit Plan Cont to advance core & balance & visceral mobility to inc lumbar mobility
--- NOTE | 2018-01-02 13:43 | PT.OTN ---
Current Diagnoses Other chronic pain (01/02/18) Radiculopathy, lumbar region (01/02/18) Abnormal posture (01/02/18) Weakness (01/02/18) Physical Therapy Treatment Note PT-OP-A Visit Information Start: 08/01/17 07:26 Freq: Status: Active Protocol: Document 01/02/18 12:59 [facility] (Rec: 01/02/18 13:43 [facility] [id number]) Out-Patient Physical Therapy Visit Information Visit Information Visit Type Treatment Note Visit Note 24 total Visit Start Time 13:00 Visit Stop Time 13:55 Total Visit Minutes 55 Visit Number 4 Number of MINE ENGINEER Visits 0 PT-OP-C Subjective Start: 08/01/17 07:26 Freq: Status: Active Protocol: Document 01/02/18 12:59 [facility] (Rec: 01/02/18 13:43 [facility] [id number]) OP-PT Subjective Patient Comments Patient Comments Pt reports he has been doing a wave machine at the gym. Gym program is going well. PT-OP-D Balance Start: 08/01/17 07:26 Freq: Status: Active Protocol: Document 11/21/17 12:44 [facility] (Rec: 11/21/17 13:48 [facility] [id number]) Balance Tests Other Other Balance Tests Performed DGI PT-OP-M Strength Start: 09/05/17 13:58 Freq: Status: Active Protocol: Document 11/21/17 12:44 [facility] (Rec: 11/21/17 13:48 [facility] [id number]) Hip Strength Hip Manual Muscle Testing Right Flexion (L2) 5 Normal Abduction 4+ Good+ External Rotation 4+ Good+ Internal Rotation 4- Good- Comments pain in R hip w/ IR Left Flexion (L2) 5 Normal Abduction 4+ Good+ External Rotation 5 Normal Internal Rotation 5 Normal Comments VCT:2/5; EFT:5/5; LPM L fwd AP : 2/5 PA:2/5 R fwd AP: 2/5 PA:2/5 PT-OP-Q Treatments Start: 08/01/17 07:26 Freq: Status: Active Protocol: Document 01/02/18 12:59 [facility] (Rec: 01/02/18 13:43 [facility] [id number]) Therapeutic Exercises Prone Exercises 1 Prone Exercise Name hip ER Manual Therapy Treatment Soft Tissue Mobilization 5 Body Location thoracic paraspinals 4 Body Location piriformis & gluteal Mobilization Type Sustained Pressure Comments FM w/IR/ER Joint Mobilizations 5 Joint thoracic Direction PA & UPA B Grade II 4 Joint hip Direction hip on axis ER R Grade III Body Position Prone Neuro Re-Education Treatment Balance Activities 8 Details standing on bosu with focus on balance 7 Details sidestep Reps/Duration 1x20ft Comments w/o resistance Self-Care/Home Management Treatment Activities Self-Care/Home Management Activities edu on daily icing for inflamation to help w/his progression of dec meds; discussed even if it is not hurting a lot that he should ice 1-2x/day PT-OP-R Modalities Start: 08/01/17 07:26 Freq: Status: Active Protocol: Document 01/02/18 12:59 [facility] (Rec: 01/02/18 13:43 [facility] [id number]) Electric Stimulation Electric Stimulation Interferential Current (IFC) Body Location LS Duration (Minutes) 15 Patient Position Prone Combined With Heat/Cold Cold Pack PT-OP-T Assessment and Plan Start: 08/01/17 07:26 Freq: Status: Active Protocol: Document 01/02/18 12:59 [facility] (Rec: 01/02/18 13:43 [facility] [id number]) Physical Therapy Assessment Goals Eight Impairment DGI Short Term Goal (STG) 19 STG Duration achieved Usp Goal (LTG) 24 LTG Duration 01/21/18 Seven Impairment core Usp Goal (LTG) 3/5 EFT, VCT, LPM LTG Duration 01/21/18-improving Six Impairment gait Software Integrator Goal (LTG) abnormality to trace LTG Duration 01/21/18-excellent progress Five Impairment MMT Software Integrator Goal (LTG) 5/5 to allow progression of activity tolerance LTG Duration 12/27/17-improving Three Impairment APRYL Software Integrator Goal (LTG) 9 LTG Duration 01/21/18 Two Impairment pain Software Integrator Goal (LTG) to 3/10 current LTG Duration 12/27/17-improving (4/10) One Impairment positions Short Term Goal (STG) sit to stand w/o pain STG Duration achieved Usp Goal (LTG) no greater than 3/10 w/all activities LTG Duration by 01/21/18 Assessment Summary Assessment Pt did improve in his ability to maintain balance on bosu today. Sidestepping was improved once he put his hands on his pelvis. He cont to have pelvis & hip restrctions that improve with manual. Physical Therapy Plan Frequency and Duration Frequency of Treatment 1x/Week Plan of Care Start Date 11/21/17 Plan of Care End Date 01/21/18 Next Visit Focus/Plan Next Note Type Treatment Note Next Visit Plan TKE; cont to advance core & balance
--- NOTE | 2018-01-09 14:21 | PT.OTN ---
Current Diagnoses Other chronic pain (01/09/18) Radiculopathy, lumbar region (01/09/18) Abnormal posture (01/09/18) Weakness (01/09/18) Physical Therapy Treatment Note PT-OP-A Visit Information Start: 08/01/17 07:26 Freq: Status: Active Protocol: Document 01/09/18 13:54 [facility] (Rec: 01/09/18 14:21 [facility] [id number]) Out-Patient Physical Therapy Visit Information Visit Information Visit Type Treatment Note Visit Note 24 total Visit Start Time 13:00 Visit Stop Time 14:00 Total Visit Minutes 60 Visit Number 08/04 Number of HAND TILE MAKER Visits 0 PT-OP-C Subjective Start: 08/01/17 07:26 Freq: Status: Active Protocol: Document 01/09/18 13:54 [facility] (Rec: 01/09/18 14:21 [facility] [id number]) OP-PT Subjective Patient Comments Patient Comments Pt reports he is overall doing well. Has been trying to do lower trunk rotation in prone. PT-OP-D Balance Start: 08/01/17 07:26 Freq: Status: Active Protocol: Document 11/21/17 12:44 [facility] (Rec: 11/21/17 13:48 [facility] [id number]) Balance Tests Other Other Balance Tests Performed DGI PT-OP-M Strength Start: 09/05/17 13:58 Freq: Status: Active Protocol: Document 11/21/17 12:44 [facility] (Rec: 11/21/17 13:48 [facility] [id number]) Hip Strength Hip Manual Muscle Testing Right Flexion (L2) 5 Normal Abduction 4+ Good+ External Rotation 4+ Good+ Internal Rotation 4- Good- Comments pain in R hip w/ IR Left Flexion (L2) 5 Normal Abduction 4+ Good+ External Rotation 5 Normal Internal Rotation 5 Normal Comments VCT:2/5; EFT:5/5; LPM L fwd AP : 2/5 PA:2/5 R fwd AP: 2/5 PA:2/5 PT-OP-Q Treatments Start: 08/01/17 07:26 Freq: Status: Active Protocol: Document 01/09/18 13:54 [facility] (Rec: 01/09/18 14:21 [facility] [id number]) Therapeutic Exercises Standing Exercises 2 Standing Exercise Name TKE Equipment Used Lvl 2 Reps/Minutes 30 B Comments inc time required for cueing for form & slowing down. 1 Standing Exercise Name wall roll up with 90/90 ER Therapeutic Activity Therapeutic Activity 2 Name posture training in standing 1 Name edu on quad, glute & solus anatomy Manual Therapy Treatment Soft Tissue Mobilization 5 Body Location thoracic paraspinals Mobilization Type Myofascial Release Rolling Comments FM w/deep breathing PT-OP-R Modalities Start: 08/01/17 07:26 Freq: Status: Active Protocol: Document 01/09/18 13:54 [facility] (Rec: 01/09/18 14:21 [facility] [id number]) Electric Stimulation Electric Stimulation Interferential Current (IFC) Body Location thoracic spine Duration (Minutes) 15 Patient Position Prone Combined With Heat/Cold Cold Pack PT-OP-T Assessment and Plan Start: 08/01/17 07:26 Freq: Status: Active Protocol: Document 01/09/18 13:54 [facility] (Rec: 01/09/18 14:21 [facility] [id number]) Physical Therapy Assessment Goals Eight Impairment DGI Short Term Goal (STG) 19 STG Duration achieved Meat Boner Goal (LTG) 24 LTG Duration 01/21/18 Seven Impairment core Meat Boner Goal (LTG) 3/5 EFT, VCT, LPM LTG Duration 01/21/18-improving Six Impairment gait Meat Boner Goal (LTG) abnormality to trace LTG Duration 01/21/18-excellent progress Five Impairment MMT Meat Boner Goal (LTG) 5/5 to allow progression of activity tolerance LTG Duration 12/27/17-improving Three Impairment APRYL Meat Boner Goal (LTG) 9 LTG Duration 01/21/18 Two Impairment pain Long-Term Goal (LTG) to 3/10 current LTG Duration 12/27/17-improving (4/10) One Impairment positions Short Term Goal (STG) sit to stand w/o pain STG Duration achieved Long-Term Goal (LTG) no greater than 3/10 w/all activities LTG Duration by 01/21/18 Assessment Summary Assessment Pt required significant cueing with TKE to maintain posture & to do a slow controlled movement. Required cueing about maintaining neutral back posture with wall roll ups. He cont to have tightness in thoracic paraspinals. Physical Therapy Plan Frequency and Duration Frequency of Treatment 1x/Week Plan of Care Start Date 11/21/17 Plan of Care End Date 01/21/18 Next Visit Focus/Plan Next Note Type Progress Note Next Visit Plan cont to advance balance & core stability
--- NOTE | 2018-01-16 14:18 | PT.OTN ---
Current Diagnoses Other chronic pain (01/16/18) Radiculopathy, lumbar region (01/16/18) Abnormal posture (01/16/18) Weakness (01/16/18) Physical Therapy Treatment Note PT-OP-A Visit Information Start: 08/01/17 07:26 Freq: Status: Active Protocol: Document 01/16/18 13:02 [facility] (Rec: 01/16/18 14:18 [facility] [id number]) Out-Patient Physical Therapy Visit Information Visit Information Visit Type Treatment Note Visit Note 25 total Visit Start Time 13:00 Visit Stop Time 14:00 Total Visit Minutes 60 Visit Number 09/04 Number of ROLLER COASTER ENGINEER Visits 0 PT-OP-C Subjective Start: 08/01/17 07:26 Freq: Status: Active Protocol: Document 01/16/18 13:02 [facility] (Rec: 01/16/18 14:18 [facility] [id number]) OP-PT Subjective Patient Comments Patient Comments Pt reports he is hurting a lot today d/t overdoing it on yard work this weekend. Reports he feels like he needs a few days rest. Patient Questionnaires Oswestry Low Back Index Oswestry Score 40 Oswestry Impairment 40 to 59% Impaired (Score 40- 59) PT-OP-D Balance Start: 08/01/17 07:26 Freq: Status: Active Protocol: Document 01/16/18 13:02 [facility] (Rec: 01/16/18 14:18 [facility] [id number]) Balance Tests Other Other Balance Tests Performed [facility] PT-OP-M Strength Start: 09/05/17 13:58 Freq: Status: Active Protocol: Document 01/16/18 13:02 [facility] (Rec: 01/16/18 14:18 [facility] [id number]) Hip Strength Hip Manual Muscle Testing Right Flexion (L2) 5 Normal Extension (S1) 4- Good- Abduction 5 Normal External Rotation 5 Normal Internal Rotation 5 Normal Left Flexion (L2) 5 Normal Extension (S1) 5 Normal Abduction 5 Normal External Rotation 5 Normal Internal Rotation 5 Normal PT-OP-Q Treatments Start: 08/01/17 07:26 Freq: Status: Active Protocol: Document 01/16/18 13:02 [facility] (Rec: 01/16/18 14:18 [facility] [id number]) Gait Training Gait Activity walking Description avoiding knee hyperext with push off Comments along rail weight shifts Description fwd/back with focus on push off & avoiding hyperext Manual Therapy Treatment Soft Tissue Mobilization 1 Body Location QL Mobilization Type Rolling Intensity/Depth Moderate PT-OP-R Modalities Start: 08/01/17 07:26 Freq: Status: Active Protocol: Document 01/16/18 13:02 [facility] (Rec: 01/16/18 14:18 [facility] [id number]) Electric Stimulation Electric Stimulation Interferential Current (IFC) Body Location LS Duration (Minutes) 15 Patient Position Prone Combined With Heat/Cold Cold Pack PT-OP-T Assessment and Plan Start: 08/01/17 07:26 Freq: Status: Active Protocol: Document 01/16/18 13:02 [facility] (Rec: 01/16/18 14:18 [facility] [id number]) Physical Therapy Assessment Impairments Impairments Balance Gait Pain Posture ROM Soft Tissue Mobility Strength Goals Eight Impairment DGI Short Term Goal (STG) 19 STG Duration achieved Supervisory Civil Engineer Goal (LTG) 24 LTG Duration 03/23/18-dec since last time likely d/t pain Seven Impairment core Supervisory Civil Engineer Goal (LTG) 3/5 EFT, VCT, LPM LTG Duration 01/21/18-improving (4/5 EFT, 3 /5 VCT, LPM 2/5 all directions ) Six Impairment gait Supervisory Civil Engineer Goal (LTG) abnormality to trace LTG Duration 03/23/18-excellent progress- today dec d/t pain after activity Five Impairment MMT Supervisory Civil Engineer Goal (LTG) 5/5 to allow progression of activity tolerance LTG Duration 02/26/18-improving Three Impairment APRYL Supervisory Civil Engineer Goal (LTG) 9 LTG Duration 03/23/18 Two Impairment pain Supervisory Civil Engineer Goal (LTG) to 3/10 current LTG Duration 02/26/18-no change since last eval (07/05) -dec in med use One Impairment positions Short Term Goal (STG) sit to stand w/o pain STG Duration achieved Half-Way Goal (LTG) no greater than 3/10 w/all activities LTG Duration by 03/23/18- Assessment Summary Assessment Pt presented today with dec balance and inc impairements in gait as compared to his recent improvements. He is improving still with strength with cont dec hip ext strength with RLE. He had significant difficulty today with gait with avoiding knee hyperextension with stance & push off. Physical Therapy Plan Frequency and Duration Frequency of Treatment 1x/Week Plan of Care Start Date 01/16/18 Plan of Care End Date 03/18/18 Therapeutic Interventions Therapeutic Interventions Aquatic Therapy Balance Training Gait Training Home Exercise Program Joint Mobilizations Manual Therapy Soft Tissue Mobilization Taping Therapeutic Activities Therapeutic Exercises Modalities Cold Pack/Ice Massage Electric Stimulation Hot Packs Infrared Therapy Iontophoresis Traction- Mechanical Ultrasound Next Visit Focus/Plan Next Note Type Treatment Note Next Visit Plan work on gait mechanics
--- NOTE | 2018-01-16 14:18 | PT.OPPOC ---
Current Diagnoses Other chronic pain (01/16/18) Radiculopathy, lumbar region (01/16/18) Abnormal posture (01/16/18) Weakness (01/16/18) Provider Visit Care Team Role Provider Type Carina Hester DO Attending Provider Non-Staff Specialty: Family Practice Address: [address] [place] [address], [id number] Email: Plan Of Care PT-OP-T Assessment and Plan Start: 08/01/17 07:26 Freq: Status: Active Protocol: Document 01/16/18 13:02 [facility] (Rec: 01/16/18 14:18 [facility] [id number]) Physical Therapy Assessment Impairments Impairments Balance Gait Pain Posture ROM Soft Tissue Mobility Strength Goals Eight Impairment DGI Short Term Goal (STG) 19 STG Duration achieved Detention Goal (LTG) 24 LTG Duration 03/23/18-dec since last time likely d/t pain Seven Impairment core Detention Goal (LTG) 3/5 EFT, VCT, LPM LTG Duration 01/21/18-improving (4/5 EFT, 3 /5 VCT, LPM 2/5 all directions ) Six Impairment gait Detention Goal (LTG) abnormality to trace LTG Duration 03/23/18-excellent progress- today dec d/t pain after activity Five Impairment MMT Detention Goal (LTG) 5/5 to allow progression of activity tolerance LTG Duration 02/26/18-improving Three Impairment APRYL Detention Goal (LTG) 9 LTG Duration 03/23/18 Two Impairment pain Drafting Clerk Goal (LTG) to 3/10 current LTG Duration 02/26/18-no change since last eval (07/05) -dec in med use One Impairment positions Short Term Goal (STG) sit to stand w/o pain STG Duration achieved Drafting Clerk Goal (LTG) no greater than 3/10 w/all activities LTG Duration by 03/23/18- Assessment Summary Assessment Pt presented today with dec balance and inc impairements in gait as compared to his recent improvements. He is improving still with strength with cont dec hip ext strength with RLE. He had significant difficulty today with gait with avoiding knee hyperextension with stance & push off. Physical Therapy Plan Frequency and Duration Frequency of Treatment 1x/Week Plan of Care Start Date 01/16/18 Plan of Care End Date 03/18/18 Therapeutic Interventions Therapeutic Interventions Aquatic Therapy Balance Training Gait Training Home Exercise Program Joint Mobilizations Manual Therapy Soft Tissue Mobilization Taping Therapeutic Activities Therapeutic Exercises Modalities Cold Pack/Ice Massage Electric Stimulation Hot Packs Infrared Therapy Iontophoresis Traction- Mechanical Ultrasound Next Visit Focus/Plan Next Note Type Treatment Note Next Visit Plan work on gait mechanics Plan of Care Dates Plan of Care Start Date 01/16/18 Plan of Care End Date 03/18/18 Please Sign and Return: I have reviewed this Plan of Care and certify that the skilled therapy services above are required to meet the patient?s needs. Physician Signature Date Printed Name and Credentials Clinical Instructor Signature Printed Name and Credentials
--- NOTE | 2018-01-23 14:20 | PT.OTN ---
Current Diagnoses Other chronic pain (01/23/18) Radiculopathy, lumbar region (01/23/18) Abnormal posture (01/23/18) Weakness (01/23/18) Physical Therapy Treatment Note PT-OP-A Visit Information Start: 08/01/17 07:26 Freq: Status: Active Protocol: Document 01/23/18 13:54 [facility] (Rec: 01/23/18 14:20 [facility] [id number]) Out-Patient Physical Therapy Visit Information Visit Information Visit Type Treatment Note Visit Note 26 total Visit Start Time 13:00 Visit Stop Time 14:00 Total Visit Minutes 60 Visit Number 2 Number of RIVET CATCHER Visits 0 PT-OP-C Subjective Start: 08/01/17 07:26 Freq: Status: Active Protocol: Document 01/23/18 13:54 [facility] (Rec: 01/23/18 14:20 [facility] [id number]) OP-PT Subjective Patient Comments Patient Comments reports thoracic pain today that takes his breath away. PT-OP-D Balance Start: 08/01/17 07:26 Freq: Status: Active Protocol: Document 01/16/18 13:02 [facility] (Rec: 01/16/18 14:18 [facility] [id number]) Balance Tests Other Other Balance Tests Performed PT-OP-M Strength Start: 09/05/17 13:58 Freq: Status: Active Protocol: Document 01/16/18 13:02 [facility] (Rec: 01/16/18 14:18 [facility] [id number]) Hip Strength Hip Manual Muscle Testing Right Flexion (L2) 5 Normal Extension (S1) 4- Good- Abduction 5 Normal External Rotation 5 Normal Internal Rotation 5 Normal Left Flexion (L2) 5 Normal Extension (S1) 5 Normal Abduction 5 Normal External Rotation 5 Normal Internal Rotation 5 Normal PT-OP-Q Treatments Start: 08/01/17 07:26 Freq: Status: Active Protocol: Document 01/23/18 13:54 [facility] (Rec: 01/23/18 14:20 [facility] [id number]) Manual Therapy Treatment Soft Tissue Mobilization 5 Body Location thoracic paraspinals Mobilization Type Myofascial Release Rolling Comments FM w/deep breathing 3 Body Location diaphram B Mobilization Type Sustained Pressure Joint Mobilizations 5 Joint thoracic Direction PA & UPA B Grade II Comments Focus on T5-9; FM w/deep breathing 3 Joint Rib 3 Direction caudal Comments FM w/deep breathing Manual Techniques diaphram Type quick stretch to facilitate diaphram Neuro Re-Education Treatment Other Activities 1 Details ant elevation rhythmic stabilization to COI PT-OP-R Modalities Start: 08/01/17 07:26 Freq: Status: Active Protocol: Document 01/23/18 13:54 [facility] (Rec: 01/23/18 14:20 [facility] [id number]) Electric Stimulation Electric Stimulation Interferential Current (IFC) Body Location thoracic spine Duration (Minutes) 15 Patient Position Prone Combined With Heat/Cold Cold Pack PT-OP-T Assessment and Plan Start: 08/01/17 07:26 Freq: Status: Active Protocol: Document 01/23/18 13:54 [facility] (Rec: 01/23/18 14:20 [facility] [id number]) Physical Therapy Assessment Goals Eight Impairment DGI Short Term Goal (STG) 19 STG Duration achieved Assisted Goal (LTG) 24 LTG Duration 03/23/18-dec since last time likely d/t pain Seven Impairment core Assisted Goal (LTG) 3/5 EFT, VCT, LPM LTG Duration 01/21/18-improving (4/5 EFT, 3 /5 VCT, LPM 2/5 all directions ) Six Impairment gait Assisted Goal (LTG) abnormality to trace LTG Duration 03/23/18-excellent progress- today dec d/t pain after activity Five Impairment MMT Assisted Goal (LTG) 5/5 to allow progression of activity tolerance LTG Duration 02/26/18-improving Three Impairment APRYL Gasket Former Goal (LTG) 9 LTG Duration 03/23/18 Two Impairment pain Assisted Goal (LTG) to 3/10 current LTG Duration 02/26/18-no change since last eval (07/05) -dec in med use One Impairment positions Short Term Goal (STG) sit to stand w/o pain STG Duration achieved Gasket Former Goal (LTG) no greater than 3/10 w/all activities LTG Duration by 03/23/18- Assessment Summary Assessment Improved diaphramatic breathing with treatment. He had significant thoracic restrictions today. Reported relief with PNF. Physical Therapy Plan Frequency and Duration Frequency of Treatment 1x/Week Plan of Care Start Date 01/16/18 Plan of Care End Date 03/18/18 Next Visit Focus/Plan Next Note Type Treatment Note Next Visit Plan work on gait mechanics; PNF ant elevation & post depression R
--- NOTE | 2018-01-30 13:29 | PT.OTN ---
Current Diagnoses Other chronic pain (01/30/18) Radiculopathy, lumbar region (01/30/18) Abnormal posture (01/30/18) Weakness (01/30/18) Physical Therapy Treatment Note PT-OP-A Visit Information Start: 08/01/17 07:26 Freq: Status: Active Protocol: Document 01/30/18 13:00 [facility] (Rec: 02/01/18 08:29 [facility] [id number]) Out-Patient Physical Therapy Visit Information Visit Information Visit Type Treatment Note Visit Note 27 total Visit Start Time 13:00 Visit Stop Time 14:00 Total Visit Minutes 60 Visit Number 3/ Number of CONFIGURATION RELEASE MANAGER Visits 0 PT-OP-C Subjective Start: 08/01/17 07:26 Freq: Status: Active Protocol: Document 01/30/18 13:00 [facility] (Rec: 02/01/18 08:29 [facility] [id number]) OP-PT Subjective Patient Comments Patient Comments Reports that he went to the osteopath and he worked on his abdomen and t spine quite a bit. PT-OP-D Balance Start: 08/01/17 07:26 Freq: Status: Active Protocol: Document 01/16/18 13:02 [facility] (Rec: 01/16/18 14:18 [facility] [id number]) Balance Tests Other Other Balance Tests Performed PT-OP-M Strength Start: 09/05/17 13:58 Freq: Status: Active Protocol: Document 01/16/18 13:02 [facility] (Rec: 01/16/18 14:18 [facility] [id number]) Hip Strength Hip Manual Muscle Testing Right Flexion (L2) 5 Normal Extension (S1) 4- Good- Abduction 5 Normal External Rotation 5 Normal Internal Rotation 5 Normal Left Flexion (L2) 5 Normal Extension (S1) 5 Normal Abduction 5 Normal External Rotation 5 Normal Internal Rotation 5 Normal PT-OP-Q Treatments Start: 08/01/17 07:26 Freq: Status: Active Protocol: Document 01/30/18 13:00 [facility] (Rec: 02/01/18 08:29 [facility] [id number]) Therapeutic Activity Therapeutic Activity wall posture Name edu on proper wall posture Comments then transitioning to standing fromw all posture position 2 Name posture training in standing Comments Working on coming out of post post position. Neuro Re-Education Treatment Other Activities 1 Details ant elevationrhythmic stabilization to COI Comments progressed to COI then rhythmic initiation for post depression PT-OP-R Modalities Start: 08/01/17 07:26 Freq: Status: Active Protocol: Document 01/30/18 13:00 [facility] (Rec: 02/01/18 08:29 [facility] [id number]) Electric Stimulation Electric Stimulation Interferential Current (IFC) Body Location thoracic/lumbar spine Duration (Minutes) 15 Patient Position Prone Combined With Heat/Cold Cold Pack PT-OP-T Assessment and Plan Start: 08/01/17 07:26 Freq: Status: Active Protocol: Document 01/30/18 13:00 [facility] (Rec: 02/01/18 08:29 [facility] [id number]) Physical Therapy Assessment Goals Eight Impairment DGI Short Term Goal (STG) 19 STG Duration achieved Nurse Advisor Goal (LTG) 24 LTG Duration 03/23/18-dec since last time likely d/t pain Seven Impairment core Intermediate Goal (LTG) 3/5 EFT, VCT, LPM LTG Duration 01/21/18-improving (4/5 EFT, 3 /5 VCT, LPM 2/5 all directions ) Six Impairment gait Intermediate Goal (LTG) abnormality to trace LTG Duration 03/23/18-excellent progress- today dec d/t pain after activity Five Impairment MMT Nurse Advisor Goal (LTG) 5/5 to allow progression of activity tolerance LTG Duration 02/26/18-improving Three Impairment APRYL Nurse Advisor Goal (LTG) 9 LTG Duration 03/23/18 Two Impairment pain Intermediate Goal (LTG) to 3/10 current LTG Duration 02/26/18-no change since last eval (07/05) -dec in med use One Impairment positions Short Term Goal (STG) sit to stand w/o pain STG Duration achieved Nurse Advisor Goal (LTG) no greater than 3/10 w/all activities LTG Duration by 03/23/18- Assessment Summary Assessment Pt had difficulty with maintaining posture in standing and required significant edu. Cont difficulty with PNF patterns for gait. Physical Therapy Plan Frequency and Duration Frequency of Treatment 1x/Week Plan of Care Start Date 01/16/18 Plan of Care End Date 03/18/18 Next Visit Focus/Plan Next Note Type Treatment Note Next Visit Plan work on gait mechanics; PNF ant elevation & post depression B; possibly progress into crawling
--- NOTE | 2018-02-06 18:18 | PT.OTN ---
Current Diagnoses Other chronic pain (02/06/18) Radiculopathy, lumbar region (02/06/18) Abnormal posture (02/06/18) Weakness (02/06/18) Physical Therapy Treatment Note PT-OP-A Visit Information Start: 08/01/17 07:26 Freq: Status: Active Protocol: Document 02/06/18 13:00 [facility] (Rec: 02/06/18 13:34 [facility] [id number]) Out-Patient Physical Therapy Visit Information Visit Information Visit Type Treatment Note Visit Note 28 total Visit Start Time 13:00 Visit Stop Time 14:00 Total Visit Minutes 60 Visit Number 4/ Number of PLISSE MACHINE OPERATOR HELPER Visits 0 PT-OP-C Subjective Start: 08/01/17 07:26 Freq: Status: Active Protocol: Document 02/06/18 13:00 [facility] (Rec: 02/06/18 13:34 [facility] [id number]) OP-PT Subjective Patient Comments Patient Comments Reports he is doing okay today . Notes that he wants more core exercises to work on at the gym. PT-OP-D Balance Start: 08/01/17 07:26 Freq: Status: Active Protocol: Document 01/16/18 13:02 [facility] (Rec: 01/16/18 14:18 [facility] [id number]) Balance Tests Other Other Balance Tests Performed PT-OP-M Strength Start: 09/05/17 13:58 Freq: Status: Active Protocol: Document 01/16/18 13:02 [facility] (Rec: 01/16/18 14:18 [facility] [id number]) Hip Strength Hip Manual Muscle Testing Right Flexion (L2) 5 Normal Extension (S1) 4- Good- Abduction 5 Normal External Rotation 5 Normal Internal Rotation 5 Normal Left Flexion (L2) 5 Normal Extension (S1) 5 Normal Abduction 5 Normal External Rotation 5 Normal Internal Rotation 5 Normal PT-OP-Q Treatments Start: 08/01/17 07:26 Freq: Status: Active Protocol: Document 02/06/18 13:00 [facility] (Rec: 02/06/18 18:17 [facility] [id number]) Gym Equipment Therapeutic Ball 1 Exercise Details straight leg bridge Comments HEP; no bent knees to protect hamstrings Therapeutic Exercises Standing Exercises 3 Standing Exercise Name gait press at wall Comments for neuro re-ed of pelvis, lots of cueing; HEP is SLS wt distribution Other Exercises 2 Other Exercise Name quadruped opposite arm and leg lift Comments HEP; lots of cueing for low leg and arm lift 1 Other Exercise Name cat/camel Comments HEP; lots of cueing to obtain motion Neuro Re-Education Treatment Other Activities 1 Details ant elevationrhythmic stabilization to COI Comments R; progressed to COI then rhythmic initiation for post depression PT-OP-R Modalities Start: 08/01/17 07:26 Freq: Status: Active Protocol: Document 02/06/18 13:00 [facility] (Rec: 02/06/18 13:34 [facility] [id number]) Electric Stimulation Electric Stimulation Interferential Current (IFC) Body Location thoracic/lumbar spine Duration (Minutes) 15 Patient Position Prone Combined With Heat/Cold Cold Pack PT-OP-T Assessment and Plan Start: 08/01/17 07:26 Freq: Status: Active Protocol: Document 02/06/18 13:00 [facility] (Rec: 02/06/18 18:17 [facility] [id number]) Physical Therapy Assessment Goals Eight Impairment DGI Short Term Goal (STG) 19 STG Duration achieved Mcfp Goal (LTG) 24 LTG Duration 03/23/18-dec since last time likely d/t pain Seven Impairment core Mcfp Goal (LTG) 3/5 EFT, VCT, LPM LTG Duration 01/21/18-improving (4/5 EFT, 3 /5 VCT, LPM 2/5 all directions ) Six Impairment gait Meter Reader Inspector Goal (LTG) abnormality to trace LTG Duration 03/23/18-excellent progress- today dec d/t pain after activity Five Impairment MMT Meter Reader Inspector Goal (LTG) 5/5 to allow progression of activity tolerance LTG Duration 02/26/18-improving Three Impairment APRYL Mcfp Goal (LTG) 9 LTG Duration 03/23/18 Two Impairment pain Mcfp Goal (LTG) to 3/10 current LTG Duration 02/26/18-no change since last eval (07/05) -dec in med use One Impairment positions Short Term Goal (STG) sit to stand w/o pain STG Duration achieved Meter Reader Inspector Goal (LTG) no greater than 3/10 w/all activities LTG Duration by 03/23/18- Assessment Summary Assessment Pt mentioned that he desired to cont to work his core strengthening, but is unsure how to do it without doing crunches. Pt's self-taught core exercises for the gym were reviewed and corrected, and the pt was able to be given appropriate exercises to inc his core motion and control as well as strength. Pt continued to have difficulty getting appropriate post depression of his pelvis on his R, but improved his ability to ant elevate it, despite the difficulty in understanding the timing during gait. Pt was instructed to work on his wt shifting through SLS at home to improve this. Physical Therapy Plan Frequency and Duration Frequency of Treatment 1x/Week Plan of Care Start Date 01/16/18 Plan of Care End Date 03/18/18 Next Visit Focus/Plan Next Note Type Treatment Note Next Visit Plan check on core exercises; progress wall press prn; work on gait mechanics; PNF ant elevation & post depression B; possibly progress into crawling
--- NOTE | 2018-02-13 15:36 | PT.OTN ---
Current Diagnoses Other chronic pain (02/13/18) Radiculopathy, lumbar region (02/13/18) Abnormal posture (02/13/18) Weakness (02/13/18) Physical Therapy Treatment Note PT-OP-A Visit Information Start: 08/01/17 07:26 Freq: Status: Active Protocol: Document 02/13/18 14:36 ML (Rec: 02/13/18 14:42 ML [id number]) Out-Patient Physical Therapy Visit Information Visit Information Visit Type Treatment Note Visit Note 29 total Visit Start Time 13:00 Visit Stop Time 14:00 Total Visit Minutes 60 Visit Number 08/04 Number of SUPERVISOR COAL HANDLING Visits 0 PT-OP-C Subjective Start: 08/01/17 07:26 Freq: Status: Active Protocol: Document 02/13/18 14:36 ML (Rec: 02/13/18 14:42 ML [email or web address]) OP-PT Subjective Patient Comments Patient Comments Pt notes that his pain has moved to between his scapulas. PT-OP-D Balance Start: 08/01/17 07:26 Freq: Status: Active Protocol: Document 01/16/18 13:02 LR (Rec: 01/16/18 14:18 LR [id number]) Balance Tests Other Other Balance Tests Performed PT-OP-M Strength Start: 09/05/17 13:58 Freq: Status: Active Protocol: Document 01/16/18 13:02 LR (Rec: 01/16/18 14:18 LR [id number]) Hip Strength Hip Manual Muscle Testing Right Flexion (L2) 5 Normal Extension (S1) 4- Good- Abduction 5 Normal External Rotation 5 Normal Internal Rotation 5 Normal Left Flexion (L2) 5 Normal Extension (S1) 5 Normal Abduction 5 Normal External Rotation 5 Normal Internal Rotation 5 Normal PT-OP-Q Treatments Start: 08/01/17 07:26 Freq: Status: Active Protocol: Document 02/13/18 14:36 ML (Rec: 02/13/18 14:42 ML [email or web address]) Gym Equipment Therapeutic Ball 1 Exercise Details straight leg bridge Comments HEP; no bent knees to protect hamstrings Therapeutic Exercises Standing Exercises 3 Standing Exercise Name gait press at wall Side bilateral Comments for neuro re-ed of pelvis, lots of cueing; HEP is SLS wt distribution Other Exercises 2 Other Exercise Name quadruped opposite arm and leg lift Reps/Minutes just reviewing 5-8x Comments HEP; lots of cueing for low leg and arm lift 1 Other Exercise Name cat/camel Reps/Minutes just review 3-5x Comments HEP; lots of cueing to obtain motion Manual Therapy Treatment Soft Tissue Mobilization 5 Body Location thoracic paraspinals Mobilization Type Myofascial Release Rolling Comments FM w/deep breathing Neuro Re-Education Treatment Other Activities 1 Details ant elevationrhythmic stabilization to COI Comments L; progressed to COI then rhythmic initiation for post depression PT-OP-R Modalities Start: 08/01/17 07:26 Freq: Status: Active Protocol: Document 02/13/18 14:36 ML (Rec: 02/13/18 14:42 ML [id number]) Electric Stimulation Electric Stimulation Interferential Current (IFC) Body Location thoracic spine Duration (Minutes) 15 Patient Position Prone Combined With Heat/Cold Cold Pack PT-OP-T Assessment and Plan Start: 08/01/17 07:26 Freq: Status: Active Protocol: Document 02/13/18 14:36 ML (Rec: 02/13/18 14:42 ML [email or web address]) Physical Therapy Assessment Goals Eight Impairment DGI Short Term Goal (STG) 19 STG Duration achieved [facility] Goal (LTG) 24 LTG Duration 03/23/18-dec since last time likely d/t pain Seven Impairment core Gas Plant Technician Goal (LTG) 3/5 EFT, VCT, LPM LTG Duration 01/21/18-improving (4/5 EFT, 3 /5 VCT, LPM 2/5 all directions ) Six Impairment gait Gas Plant Technician Goal (LTG) abnormality to trace LTG Duration 03/23/18-excellent progress- today dec d/t pain after activity Five Impairment MMT Gas Plant Technician Goal (LTG) 5/5 to allow progression of activity tolerance LTG Duration 02/26/18-improving Three Impairment APRYL Gas Plant Technician Goal (LTG) 9 LTG Duration 03/23/18 Two Impairment pain [facility] Goal (LTG) to 3/10 current LTG Duration 02/26/18-no change since last eval (07/05) -dec in med use One Impairment positions Short Term Goal (STG) sit to stand w/o pain STG Duration achieved Gas Plant Technician Goal (LTG) no greater than 3/10 w/all activities LTG Duration by 03/23/18- Assessment Summary Assessment Pt mentioned that the HEP was going well but required more cueing and correction than desired for appropriate motion , so was reviewed and corrected. Pt noted that the pelvis re-ed was really helpful for him, and that he felt it was maintained on his R so it was re-educated on his L today and retrained with gait press done with each leg. Pt was able to achieve retraining but was unable to do with heel raise. Pt's back pain was addressed with soft tissue mobilization. Physical Therapy Plan Frequency and Duration Frequency of Treatment 1x/Week Plan of Care Start Date 01/16/18 Plan of Care End Date 03/18/18 Next Visit Focus/Plan Next Note Type Treatment Note Next Visit Plan check on core exercises; progress wall press prn; work on gait mechanics; PNF ant elevation & post depression R; possibly progress into crawling
--- NOTE | 2018-02-20 17:48 | PT.OTN ---
Current Diagnoses Other chronic pain (02/20/18) Radiculopathy, lumbar region (02/20/18) Abnormal posture (02/20/18) Weakness (02/20/18) Physical Therapy Treatment Note PT-OP-A Visit Information Start: 08/01/17 07:26 Freq: Status: Active Protocol: Document 02/20/18 14:58 ML (Rec: 02/20/18 15:08 ML [id number]) Out-Patient Physical Therapy Visit Information Visit Information Visit Type Treatment Note Visit Note 30 total Visit Start Time 13:00 Visit Stop Time 14:00 Total Visit Minutes 60 Visit Number 09/04 Number of TRANSPORTATION MODELER Visits 0 PT-OP-C Subjective Start: 08/01/17 07:26 Freq: Status: Active Protocol: Document 02/20/18 14:58 ML (Rec: 02/20/18 15:08 ML [id number]) OP-PT Subjective Patient Comments Patient Comments Pt notes that his core exercises have been improving. PT-OP-D Balance Start: 08/01/17 07:26 Freq: Status: Active Protocol: Document 01/16/18 13:02 LR (Rec: 01/16/18 14:18 [facility] [id number]) Balance Tests Other Other Balance Tests Performed PT-OP-M Strength Start: 09/05/17 13:58 Freq: Status: Active Protocol: Document 01/16/18 13:02 LR (Rec: 01/16/18 14:18 [facility] [id number]) Hip Strength Hip Manual Muscle Testing Right Flexion (L2) 5 Normal Extension (S1) 4- Good- Abduction 5 Normal External Rotation 5 Normal Internal Rotation 5 Normal Left Flexion (L2) 5 Normal Extension (S1) 5 Normal Abduction 5 Normal External Rotation 5 Normal Internal Rotation 5 Normal PT-OP-Q Treatments Start: 08/01/17 07:26 Freq: Status: Active Protocol: Document 02/20/18 14:58 ML (Rec: 02/20/18 15:08 ML [id number]) Gym Equipment Therapeutic Ball 1 Exercise Details straight leg bridge Reps/Duration just reviewed 5x Comments HEP; no bent knees to protect hamstrings; ball closer to trunk for support Therapeutic Exercises Standing Exercises 3 Standing Exercise Name gait press at wall Side bilateral Reps/Minutes just reviewed 3-5x Comments for neuro re-ed of pelvis, lots of cueing; HEP is SLS wt distribution 2 Standing Exercise Name side step Side bilateral Resistance hernandez tubing Equipment Used visual cues Comments cues for smaller steps and trunk stabilization Other Exercises 2 Other Exercise Name quadruped opposite arm and leg lift Reps/Minutes just reviewing 5-8x Comments HEP; lots of cueing for low leg and arm lift 1 Other Exercise Name cat/camel Reps/Minutes just review 3-5x Comments HEP; lots of cueing to obtain motion Neuro Re-Education Treatment Balance Activities 8 Details SLS Equipment mirror and counter Comments cues for glute/core/posture; R >L; tactile support resisting hip abd in standing leg; re-ed appropriate wt shifting 7 Details wt shifting Equipment mirror and counter Comments just heel lift and wt shift; cues for glute/core/posture; R >L; tactile support resisting hip abd in standing leg; re-ed appropriate wt shifting Other Activities 1 Details ant elevation rhythmic stabilization to COI Comments R; progressed to COI then rhythmic initiation for post depression; LE involvement for re-ed PT-OP-R Modalities Start: 08/01/17 07:26 Freq: Status: Active Protocol: Document 02/20/18 14:58 ML (Rec: 02/20/18 15:08 ML [id number]) Electric Stimulation Electric Stimulation Interferential Current (IFC) Body Location thoracic/lumbar spine Duration (Minutes) 15 Patient Position Prone Combined With Heat/Cold Cold Pack PT-OP-T Assessment and Plan Start: 08/01/17 07:26 Freq: Status: Active Protocol: Document 02/20/18 14:58 ML (Rec: 02/20/18 15:08 ML [id number]) Physical Therapy Assessment Goals Eight Impairment DGI Short Term Goal (STG) 19 STG Duration achieved Tire Bagger Goal (LTG) 24 LTG Duration 03/23/18-dec since last time likely d/t pain Seven Impairment core Nursing Home Goal (LTG) 3/5 EFT, VCT, LPM LTG Duration 01/21/18-improving (4/5 EFT, 3 /5 VCT, LPM 2/5 all directions ) Six Impairment gait Nursing Home Goal (LTG) abnormality to trace LTG Duration 03/23/18-excellent progress- today dec d/t pain after activity Five Impairment MMT Nursing Home Goal (LTG) 5/5 to allow progression of activity tolerance LTG Duration 02/26/18-improving Three Impairment APRYL Nursing Home Goal (LTG) 9 LTG Duration 03/23/18 Two Impairment pain Tire Bagger Goal (LTG) to 3/10 current LTG Duration 02/26/18-no change since last eval (07/05) -dec in med use One Impairment positions Short Term Goal (STG) sit to stand w/o pain STG Duration achieved Tire Bagger Goal (LTG) no greater than 3/10 w/all activities LTG Duration by 03/23/18- Assessment Summary Assessment Pt showed significant improvement in his ability to do his HEP for core with the correct mechanics. Pt still required some cueing for the ball exercise, but overall, was very independent. Pt had difficulty standing on R leg in SLS without abducting his hip. Pt was cued through exercises to improve this wind energy mechanic. Pt was able to improve his side stepping with resistance that helped engage his core, but still had more trunk motion than desired without resistance. Pt still had dec post depression on R, which was re-educated through PNF of his R pelvis. Physical Therapy Plan Frequency and Duration Frequency of Treatment 1x/Week Plan of Care Start Date 01/16/18 Plan of Care End Date 03/18/18 Next Visit Focus/Plan Next Note Type Treatment Note Next Visit Plan work on SLS on R without hip abd; progress wall press prn; work on gait mechanics; PNF ant elevation & post depression R; possibly progress into crawling
--- NOTE | 2018-02-27 14:33 | PT.OTN ---
Current Diagnoses Other chronic pain (02/27/18) Radiculopathy, lumbar region (02/27/18) Abnormal posture (02/27/18) Weakness (02/27/18) Physical Therapy Treatment Note PT-OP-A Visit Information Start: 08/01/17 07:26 Freq: Status: Active Protocol: Document 02/27/18 13:47 [facility] (Rec: 02/27/18 14:33 [facility] [id number]) Out-Patient Physical Therapy Visit Information Visit Information Visit Type Treatment Note Visit Note 31 total Visit Start Time 13:45 Visit Stop Time 14:40 Total Visit Minutes 55 Visit Number 10/04 Number of DISTRICT PLANT SUPERVISOR Visits 0 PT-OP-C Subjective Start: 08/01/17 07:26 Freq: Status: Active Protocol: Document 02/27/18 13:47 [facility] (Rec: 02/27/18 14:33 [facility] [id number]) OP-PT Subjective Patient Comments Patient Comments Reports compliance with exercises and feels like he is stabilizing better. PT-OP-D Balance Start: 08/01/17 07:26 Freq: Status: Active Protocol: Document 01/16/18 13:02 [facility] (Rec: 01/16/18 14:18 [facility] [id number]) Balance Tests Other Other Balance Tests Performed PT-OP-M Strength Start: 09/05/17 13:58 Freq: Status: Active Protocol: Document 01/16/18 13:02 [facility] (Rec: 01/16/18 14:18 [facility] [id number]) Hip Strength Hip Manual Muscle Testing Right Flexion (L2) 5 Normal Extension (S1) 4- Good- Abduction 5 Normal External Rotation 5 Normal Internal Rotation 5 Normal Left Flexion (L2) 5 Normal Extension (S1) 5 Normal Abduction 5 Normal External Rotation 5 Normal Internal Rotation 5 Normal PT-OP-Q Treatments Start: 08/01/17 07:26 Freq: Status: Active Protocol: Document 02/27/18 13:47 [facility] (Rec: 02/27/18 14:33 [facility] [id number]) Therapeutic Exercises Other Exercises 2 Other Exercise Name quadruped opposite arm and leg lift Reps/Minutes just reviewing 5-8x Comments HEP; lots of cueing for low leg and arm lift Manual Therapy Treatment Soft Tissue Mobilization 5 Body Location thoracic paraspinals Mobilization Type Myofascial Release Rolling Comments FM w/deep breathing 4 Body Location QL Mobilization Type Rolling Intensity/Depth Moderate Neuro Re-Education Treatment Balance Activities 8 Details SLS Equipment mirror and counter Comments cues for glute/core/posture; R >L; tactile support resisting hip abd in standing leg; re-ed appropriate wt shifting 6 Details gait press at wall Other Activities diaphram Details quick stretch for diaphram 1 Details ant elevation rhythmic stabilization to COI Comments R; progressed to COI then rhythmic initiation for post depression; LE involvement for re-ed & progressed to reciprocal isotonics PT-OP-R Modalities Start: 08/01/17 07:26 Freq: Status: Active Protocol: Document 02/27/18 13:47 [facility] (Rec: 02/27/18 14:33 [facility] [id number]) Electric Stimulation Electric Stimulation Interferential Current (IFC) Body Location thoracic/lumbar spine Duration (Minutes) 15 Patient Position Prone Combined With Heat/Cold Cold Pack PT-OP-T Assessment and Plan Start: 08/01/17 07:26 Freq: Status: Active Protocol: Document 02/27/18 13:47 [facility] (Rec: 02/27/18 14:33 [facility] [id number]) Physical Therapy Assessment Goals Eight Impairment DGI Short Term Goal (STG) 19 STG Duration achieved Trouble Operator Goal (LTG) 24 LTG Duration 03/23/18-dec since last time likely d/t pain Seven Impairment core Jail Goal (LTG) 3/5 EFT, VCT, LPM LTG Duration 01/21/18-improving (4/5 EFT, 3 /5 VCT, LPM 2/5 all directions ) Six Impairment gait Trouble Operator Goal (LTG) abnormality to trace LTG Duration 03/23/18-excellent progress- today dec d/t pain after activity Five Impairment MMT Trouble Operator Goal (LTG) 5/5 to allow progression of activity tolerance LTG Duration 02/26/18-improving Three Impairment APRYL Trouble Operator Goal (LTG) 9 LTG Duration 03/23/18 Two Impairment pain Jail Goal (LTG) to 3/10 current LTG Duration 02/26/18-no change since last eval (07/05) -dec in med use One Impairment positions Short Term Goal (STG) sit to stand w/o pain STG Duration achieved Jail Goal (LTG) no greater than 3/10 w/all activities LTG Duration by 03/23/18- Assessment Summary Assessment Pt improved with ability to do quadruped exercise & SLS with cont need for UE support to avoid hyperext and lat leaning . Tight QL likely d/t lat lean still present with gait. Physical Therapy Plan Frequency and Duration Frequency of Treatment 1x/Week Plan of Care Start Date 01/16/18 Plan of Care End Date 03/18/18 Next Visit Focus/Plan Next Note Type Treatment Note Next Visit Plan cont to work on gait & core.
--- NOTE | 2018-03-06 13:48 | PT.OTN ---
Current Diagnoses Other chronic pain (03/06/18) Radiculopathy, lumbar region (03/06/18) Abnormal posture (03/06/18) Weakness (03/06/18) Physical Therapy Treatment Note PT-OP-A Visit Information Start: 08/01/17 07:26 Freq: Status: Active Protocol: Document 03/06/18 13:02 [facility] (Rec: 03/06/18 13:48 [facility] [id number]) Out-Patient Physical Therapy Visit Information Visit Information Visit Type Treatment Note Visit Note 32 total Visit Start Time 13:00 Visit Stop Time 13:55 Total Visit Minutes 55 Visit Number 11/04 Number of DRY SANDER Visits 0 PT-OP-C Subjective Start: 08/01/17 07:26 Freq: Status: Active Protocol: Document 03/06/18 13:02 [facility] (Rec: 03/06/18 13:48 [facility] [id number]) OP-PT Subjective Patient Comments Patient Comments Reports overall doing well. PT-OP-D Balance Start: 08/01/17 07:26 Freq: Status: Active Protocol: Document 01/16/18 13:02 [facility] (Rec: 01/16/18 14:18 [facility] [id number]) Balance Tests Other Other Balance Tests Performed DGI- PT-OP-M Strength Start: 09/05/17 13:58 Freq: Status: Active Protocol: Document 01/16/18 13:02 [facility] (Rec: 01/16/18 14:18 [facility] [id number]) Hip Strength Hip Manual Muscle Testing Right Flexion (L2) 5 Normal Extension (S1) 4- Good- Abduction 5 Normal External Rotation 5 Normal Internal Rotation 5 Normal Left Flexion (L2) 5 Normal Extension (S1) 5 Normal Abduction 5 Normal External Rotation 5 Normal Internal Rotation 5 Normal PT-OP-Q Treatments Start: 08/01/17 07:26 Freq: Status: Active Protocol: Document 03/06/18 13:02 [facility] (Rec: 03/06/18 13:48 [facility] [id number]) Therapeutic Exercises Sitting Exercises rotation Sitting Exercise Name thoracic rotation Side bilateral Comments no resistance; tried L1 band but painful Gait Training Gait Activity SLS in mirror Description ant elevation L with post depression R & opposite Comments for gait initiation walking Description in mirror focus on even & push off Neuro Re-Education Treatment Balance Activities DGI Details Other Activities mass flex Details ant elevation pelvis& ant depression scap Comments R side with work to facilitated rolling 1 Details ant elevation COI Comments R PT-OP-R Modalities Start: 08/01/17 07:26 Freq: Status: Active Protocol: Document 03/06/18 13:02 [facility] (Rec: 03/06/18 13:48 [facility] [id number]) Electric Stimulation Electric Stimulation Interferential Current (IFC) Body Location thoracic/lumbar spine Duration (Minutes) 15 Patient Position Prone Combined With Heat/Cold Cold Pack PT-OP-T Assessment and Plan Start: 08/01/17 07:26 Freq: Status: Active Protocol: Document 03/06/18 13:02 [facility] (Rec: 03/06/18 13:48 [facility] [id number]) Physical Therapy Assessment Goals Eight Impairment DGI Short Term Goal (STG) 19 STG Duration achieved Site Coordinator Goal (LTG) 24 LTG Duration 03/23/18-dec since last time likely d/t pain Seven Impairment core Skilled Nursing Goal (LTG) 3/5 EFT, VCT, LPM LTG Duration 01/21/18-improving (4/5 EFT, 3 /5 VCT, LPM 2/5 all directions ) Six Impairment gait Skilled Nursing Goal (LTG) abnormality to trace LTG Duration 03/23/18-excellent progress- today dec d/t pain after activity Five Impairment MMT Site Coordinator Goal (LTG) 5/5 to allow progression of activity tolerance LTG Duration 02/26/18-improving Three Impairment APRYL Skilled Nursing Goal (LTG) 9 LTG Duration 03/23/18 Two Impairment pain Skilled Nursing Goal (LTG) to 3/10 current LTG Duration 02/26/18-no change since last eval (07/05) -dec in med use One Impairment positions Short Term Goal (STG) sit to stand w/o pain STG Duration achieved Skilled Nursing Goal (LTG) no greater than 3/10 w/all activities LTG Duration by 03/23/18- Assessment Summary Assessment Pt was able to improve with rolling and have improved oblique activation. He had difficulty and fatigue with mass flex. Physical Therapy Plan Frequency and Duration Frequency of Treatment 1x/Week Plan of Care Start Date 01/16/18 Plan of Care End Date 03/18/18 Next Visit Focus/Plan Next Note Type Progress Note Next Visit Plan Cont to work on rolling & oblique activation; re assess goals
--- NOTE | 2018-03-13 14:33 | PT.OTN ---
Current Diagnoses Other chronic pain (03/13/18) Radiculopathy, lumbar region (03/13/18) Abnormal posture (03/13/18) Weakness (03/13/18) Physical Therapy Treatment Note PT-OP-A Visit Information Start: 08/01/17 07:26 Freq: Status: Active Protocol: Document 03/13/18 13:03 [facility] (Rec: 03/13/18 14:21 [facility] [id number]) Out-Patient Physical Therapy Visit Information Visit Information Visit Type Treatment Note Visit Note 33 total Visit Start Time 13:00 Visit Stop Time 13:55 Total Visit Minutes 55 Visit Number 04/06 Number of CUSTOMER SERVICE VOICE Visits 0 PT-OP-C Subjective Start: 08/01/17 07:26 Freq: Status: Active Protocol: Document 03/13/18 13:03 [facility] (Rec: 03/13/18 14:21 [facility] [id number]) OP-PT Subjective Patient Comments Patient Comments Pt reports today is a bad day. He woke up stiff. Patient Questionnaires Oswestry Low Back Index Oswestry Score 36 Oswestry Impairment 20 to 39% Impaired (Score 20- 39) PT-OP-D Balance Start: 08/01/17 07:26 Freq: Status: Active Protocol: Document 01/16/18 13:02 [facility] (Rec: 01/16/18 14:18 [facility] [id number]) Balance Tests Other Other Balance Tests Performed PT-OP-M Strength Start: 09/05/17 13:58 Freq: Status: Active Protocol: Document 03/13/18 13:03 [facility] (Rec: 03/13/18 14:21 [facility] [id number]) Hip Strength Hip Manual Muscle Testing Right Flexion (L2) 5 Normal Extension (S1) 5 Normal Abduction 5 Normal External Rotation 5 Normal Internal Rotation 4 Good Comments Pain with IR Left Flexion (L2) 5 Normal Extension (S1) 5 Normal Abduction 5 Normal External Rotation 5 Normal Internal Rotation 5 Normal PT-OP-Q Treatments Start: 08/01/17 07:26 Freq: Status: Active Protocol: Document 03/13/18 13:03 [facility] (Rec: 03/13/18 14:21 [facility] [id number]) Therapeutic Exercises Sidelying Exercises 1 Sidelying Exercise Name reverse [facility] Side right Reps/Minutes 15 Manual Therapy Treatment Soft Tissue Mobilization 1 Body Location QL & ES Mobilization Type Rolling Joint Mobilizations 3 Joint innominate Direction caudal FM 2 Joint sacrum Direction UPA L FM 1 Joint hip Direction on axis IR R FM PT-OP-R Modalities Start: 08/01/17 07:26 Freq: Status: Active Protocol: Document 03/13/18 13:03 [facility] (Rec: 03/13/18 14:21 [facility] [id number]) Electric Stimulation Electric Stimulation Interferential Current (IFC) Body Location thoracic/lumbar spine Duration (Minutes) 15 Patient Position Prone Combined With Heat/Cold Cold Pack PT-OP-T Assessment and Plan Start: 08/01/17 07:26 Freq: Status: Active Protocol: Document 03/13/18 13:03 [facility] (Rec: 03/13/18 14:21 [facility] [id number]) Physical Therapy Assessment Goals Eight Impairment DGI Short Term Goal (STG) 19 STG Duration achieved [facility] Goal (LTG) 24 LTG Duration achieved Seven Impairment core Grinder Lap Goal (LTG) 3/5 EFT, VCT, LPM LTG Duration 04/28/18-improvement Six Impairment gait Grinder Lap Goal (LTG) abnormality to trace LTG Duration achieved Five Impairment MMT [facility] Goal (LTG) 5/5 to allow progression of activity tolerance LTG Duration 04/08/1863-[id number]-FZ only limited Three Impairment APRYL Grinder Lap Goal (LTG) 9 LTG Duration 03/23/18 Two Impairment pain [facility] Goal (LTG) to 3/10 current LTG Duration 04/29/18- no change since last One Impairment positions Short Term Goal (STG) sit to stand w/o pain STG Duration achieved Grinder Lap Goal (LTG) no greater than 3/10 w/all activities LTG Duration 04/29/18 same as last re eval Progress Towards Goals Progress Comments EFT-3/5; VCT 3/5; R back PA 1/ 5, AP 3/5; L back PA 3/5 AP 2/ 5; Pt is improving in strength and balance, but cont to have dec core control & higher pain level. Pt is no longer a risk for falls. Assessment Summary Assessment Pt is improving with overall stability and strength and balance. His gait is becoming more normalized and steady. Cont to have most limit of pain dec functional ability. Physical Therapy Plan Frequency and Duration Frequency of Treatment 1x/Week Duration of Treatment 1 month Plan of Care Start Date 03/13/18 Plan of Care End Date 04/13/18 Therapeutic Interventions Therapeutic Interventions Aquatic Therapy Balance Training Gait Training Home Exercise Program Joint Mobilizations Manual Therapy Neuromuscular Re-education Soft Tissue Mobilization Taping Therapeutic Activities Therapeutic Exercises Modalities Cold Pack/Ice Massage Electric Stimulation Hot Packs Traction- Mechanical Ultrasound Next Visit Focus/Plan Next Note Type Treatment Note Next Visit Plan cont to work on PNF patterns
--- NOTE | 2018-03-13 14:33 | PT.OPPOC ---
Current Diagnoses Other chronic pain (03/13/18) Radiculopathy, lumbar region (03/13/18) Abnormal posture (03/13/18) Weakness (03/13/18) Provider Visit Care Team Role Provider Type Carina Hester DO Attending Provider Non-Staff Specialty: Family Practice Address: [address] [place] [address], [phone] Email: Plan Of Care PT-OP-T Assessment and Plan Start: 08/01/17 07:26 Freq: Status: Active Protocol: Document 03/13/18 13:03 [facility] (Rec: 03/13/18 14:21 [facility] [id number]) Physical Therapy Assessment Goals Eight Impairment DGI Short Term Goal (STG) 19 STG Duration achieved Vascular Technologist Sonographer Goal (LTG) 24 LTG Duration achieved Seven Impairment core Group Home Goal (LTG) 3/5 EFT, VCT, LPM LTG Duration 04/28/18-improvement Six Impairment gait Vascular Technologist Sonographer Goal (LTG) abnormality to trace LTG Duration achieved Five Impairment MMT Group Home Goal (LTG) 5/5 to allow progression of activity tolerance LTG Duration 04/08/1886-avynibsxk-GD only limited Three Impairment APRYL Vascular Technologist Sonographer Goal (LTG) 9 LTG Duration 03/23/18 Two Impairment pain Vascular Technologist Sonographer Goal (LTG) to 3/10 current LTG Duration 04/29/18- no change since last One Impairment positions Short Term Goal (STG) sit to stand w/o pain STG Duration achieved Vascular Technologist Sonographer Goal (LTG) no greater than 3/10 w/all activities LTG Duration 04/29/18 same as last re eval Progress Towards Goals Progress Comments EFT-3/5; VCT 3/5; R back PA 1/ 5, AP 3/5; L back PA 3/5 AP 2/ 5; Pt is improving in strength and balance, but cont to have dec core control & higher pain level. Pt is no longer a risk for falls. Assessment Summary Assessment Pt is improving with overall stability and strength and balance. His gait is becoming more normalized and steady. Cont to have most limit of pain dec functional ability. Physical Therapy Plan Frequency and Duration Frequency of Treatment 1x/Week Duration of Treatment 1 month Plan of Care Start Date 03/13/18 Plan of Care End Date 04/13/18 Therapeutic Interventions Therapeutic Interventions Aquatic Therapy Balance Training Gait Training Home Exercise Program Joint Mobilizations Manual Therapy Neuromuscular Re-education Soft Tissue Mobilization Taping Therapeutic Activities Therapeutic Exercises Modalities Cold Pack/Ice Massage Electric Stimulation Hot Packs Traction- Mechanical Ultrasound Next Visit Focus/Plan Next Note Type Treatment Note Next Visit Plan cont to work on PNF patterns Plan of Care Dates Plan of Care Start Date 03/13/18 Plan of Care End Date 04/13/18 Please Sign and Return: I have reviewed this Plan of Care and certify that the skilled therapy services above are required to meet the patient?s needs. Physician Signature Date Printed Name and Credentials Clinical Instructor Signature Printed Name and Credentials
--- NOTE | 2018-03-13 14:43 | PT.OPPOC ---
Current Diagnoses Other chronic pain (03/13/18) Radiculopathy, lumbar region (03/13/18) Abnormal posture (03/13/18) Weakness (03/13/18) Provider Visit Care Team Role Provider Type Carina Hesetr DO Attending Provider Non-Staff Specialty: Family Practice Address: [address] [place] [address], [phone] Email: Plan Of Care PT-OP-T Assessment and Plan Start: 08/01/17 07:26 Freq: Status: Active Protocol: Document 03/13/18 13:03 [facility] (Rec: 03/13/18 14:21 [facility] [id number]) Physical Therapy Assessment Goals Eight Impairment DGI Short Term Goal (STG) 19 STG Duration achieved Livestock Handler Goal (LTG) 24 LTG Duration achieved Seven Impairment core Residential Goal (LTG) 3/5 EFT, VCT, LPM LTG Duration 04/28/18-improvement Six Impairment gait Livestock Handler Goal (LTG) abnormality to trace LTG Duration achieved Five Impairment MMT Residential Goal (LTG) 5/5 to allow progression of activity tolerance LTG Duration 04/08/1879-rgmuanyok-XB only limited Three Impairment APRYL Livestock Handler Goal (LTG) 9 LTG Duration 03/23/18 Two Impairment pain Livestock Handler Goal (LTG) to 3/10 current LTG Duration 04/29/18- no change since last One Impairment positions Short Term Goal (STG) sit to stand w/o pain STG Duration achieved Livestock Handler Goal (LTG) no greater than 3/10 w/all activities LTG Duration 04/29/18 same as last re eval Progress Towards Goals Progress Comments EFT-3/5; VCT 3/5; R back PA 1/ 5, AP 3/5; L back PA 3/5 AP 2/ 5; Pt is improving in strength and balance, but cont to have dec core control & higher pain level. Pt is no longer a risk for falls. Assessment Summary Assessment Pt is improving with overall stability and strength and balance. His gait is becoming more normalized and steady. Cont to have most limit of pain dec functional ability. Physical Therapy Plan Frequency and Duration Frequency of Treatment 1x/Week Duration of Treatment 1 month Plan of Care Start Date 03/13/18 Plan of Care End Date 04/13/18 Therapeutic Interventions Therapeutic Interventions Aquatic Therapy Balance Training Gait Training Home Exercise Program Joint Mobilizations Manual Therapy Neuromuscular Re-education Soft Tissue Mobilization Taping Therapeutic Activities Therapeutic Exercises Modalities Cold Pack/Ice Massage Electric Stimulation Hot Packs Traction- Mechanical Ultrasound Next Visit Focus/Plan Next Note Type Treatment Note Next Visit Plan cont to work on PNF patterns Plan of Care Dates Plan of Care Start Date 03/13/18 Plan of Care End Date 04/13/18 Please Sign and Return: I have reviewed this Plan of Care and certify that the skilled therapy services above are required to meet the patient?s needs. Physician Signature Date Printed Name and Credentials Clinical Instructor Signature Printed Name and Credentials
--- NOTE | 2018-03-27 13:48 | PT.OTN ---
Current Diagnoses Other chronic pain (03/27/18) Radiculopathy, lumbar region (03/27/18) Abnormal posture (03/27/18) Weakness (03/27/18) Physical Therapy Treatment Note PT-OP-A Visit Information Start: 08/01/17 07:26 Freq: Status: Active Protocol: Document 03/27/18 13:00 [facility] (Rec: 03/27/18 13:48 [facility] [id number]) Out-Patient Physical Therapy Visit Information Visit Information Visit Type Treatment Note Visit Note 34 total Visit Start Time 13:00 Visit Stop Time 13:55 Total Visit Minutes 55 Visit Number 2/ Number of NURSE PRACTITIONER Visits 0 PT-OP-C Subjective Start: 08/01/17 07:26 Freq: Status: Active Protocol: Document 03/27/18 13:00 [facility] (Rec: 03/27/18 13:48 [facility] [id number]) OP-PT Subjective Patient Comments Patient Comments Pt reports thoracic spine has been painful. PT-OP-D Balance Start: 08/01/17 07:26 Freq: Status: Active Protocol: Document 01/16/18 13:02 [facility] (Rec: 01/16/18 14:18 [facility] [id number]) Balance Tests Other Other Balance Tests Performed [facility] PT-OP-M Strength Start: 09/05/17 13:58 Freq: Status: Active Protocol: Document 03/13/18 13:03 [facility] (Rec: 03/13/18 14:21 [facility] [id number]) Hip Strength Hip Manual Muscle Testing Right Flexion (L2) 5 Normal Extension (S1) 5 Normal Abduction 5 Normal External Rotation 5 Normal Internal Rotation 4 Good Comments Pain with IR Left Flexion (L2) 5 Normal Extension (S1) 5 Normal Abduction 5 Normal External Rotation 5 Normal Internal Rotation 5 Normal PT-OP-Q Treatments Start: 08/01/17 07:26 Freq: Status: Active Protocol: Document 03/27/18 13:00 [facility] (Rec: 03/27/18 13:48 [facility] [id number]) Manual Therapy Treatment Soft Tissue Mobilization 1 Body Location QL & ES Mobilization Type Rolling Comments thoracic & lumbar Joint Mobilizations 5 Joint sacrum Direction UPA L FM Neuro Re-Education Treatment Balance Activities 8 Details eyes closed Comments NBOS, WBOS & small staggered stance 7 Details backwards walk Comments focus on core. Other Activities FGA Details PT-OP-R Modalities Start: 08/01/17 07:26 Freq: Status: Active Protocol: Document 03/27/18 13:00 [facility] (Rec: 03/27/18 13:48 [facility] [id number]) Electric Stimulation Electric Stimulation Interferential Current (IFC) Body Location thoracic/lumbar spine Duration (Minutes) 15 Patient Position Prone Combined With Heat/Cold Cold Pack PT-OP-T Assessment and Plan Start: 08/01/17 07:26 Freq: Status: Active Protocol: Document 03/27/18 13:00 [facility] (Rec: 03/27/18 13:48 [facility] [id number]) Physical Therapy Assessment Goals Eight Impairment DGI Short Term Goal (STG) 19 STG Duration achieved Regional Airline Pilot Goal (LTG) 24 LTG Duration achieved Seven Impairment core Nursing Home Goal (LTG) 3/5 EFT, VCT, LPM LTG Duration 04/28/18-improvement Six Impairment gait Nursing Home Goal (LTG) abnormality to trace LTG Duration achieved Five Impairment MMT Nursing Home Goal (LTG) 5/5 to allow progression of activity tolerance LTG Duration 04/08/1871-cbaaejoeq-WW only limited Three Impairment APRYL Nursing Home Goal (LTG) 9 LTG Duration 03/23/18 Two Impairment pain Nursing Home Goal (LTG) to 3/10 current LTG Duration 04/29/18- no change since last One Impairment positions Short Term Goal (STG) sit to stand w/o pain STG Duration achieved [employer] Goal (LTG) no greater than 3/10 w/all activities LTG Duration 04/29/18 same as last re eval Assessment Summary Assessment Pt had pain with amb backwards . He required cueing for core control and avoiding lumbar ext. Physical Therapy Plan Frequency and Duration Frequency of Treatment 1x/Week Duration of Treatment 1 month Plan of Care Start Date 03/13/18 Plan of Care End Date 04/13/18 Next Visit Focus/Plan Next Note Type Treatment Note Next Visit Plan work PNF further & work on further eyes closed position
--- NOTE | 2018-04-03 13:46 | PT.OTN ---
Current Diagnoses Other chronic pain (04/03/18) Radiculopathy, lumbar region (04/03/18) Abnormal posture (04/03/18) Weakness (04/03/18) Physical Therapy Treatment Note PT-OP-A Visit Information Start: 08/01/17 07:26 Freq: Status: Active Protocol: Document 04/03/18 12:59 [facility] (Rec: 04/03/18 13:45 [facility] [id number]) Out-Patient Physical Therapy Visit Information Visit Information Visit Type Treatment Note Visit Note 1 visit 2018 Visit Start Time 13:00 Visit Stop Time 13:55 Total Visit Minutes 55 Visit Number 3 Number of MIS SPECIALIST Visits 0 PT-OP-C Subjective Start: 08/01/17 07:26 Freq: Status: Active Protocol: Document 04/03/18 12:59 [facility] (Rec: 04/03/18 13:45 [facility] [id number]) OP-PT Subjective Patient Comments Patient Comments Pt reports R shoulder blade occasionally sharp pains. AM are painful in LB until moving PT-OP-D Balance Start: 08/01/17 07:26 Freq: Status: Active Protocol: Document 01/16/18 13:02 [facility] (Rec: 01/16/18 14:18 [facility] [id number]) Balance Tests Other Other Balance Tests Performed PT-OP-M Strength Start: 09/05/17 13:58 Freq: Status: Active Protocol: Document 03/13/18 13:03 [facility] (Rec: 03/13/18 14:21 [facility] [id number]) Hip Strength Hip Manual Muscle Testing Right Flexion (L2) 5 Normal Extension (S1) 5 Normal Abduction 5 Normal External Rotation 5 Normal Internal Rotation 4 Good Comments Pain with IR Left Flexion (L2) 5 Normal Extension (S1) 5 Normal Abduction 5 Normal External Rotation 5 Normal Internal Rotation 5 Normal PT-OP-Q Treatments Start: 08/01/17 07:26 Freq: Status: Active Protocol: Document 04/03/18 12:59 [facility] (Rec: 04/03/18 13:45 [facility] [id number]) Manual Therapy Treatment Soft Tissue Mobilization 5 Body Location thoracic paraspinals Mobilization Type Myofascial Release Rolling Comments FM w/deep breathing 1 Body Location QL & ES Mobilization Type Rolling Comments thoracic & lumbar Joint Mobilizations 4 Joint T7-9 Direction UPA & PA Grade II Body Position Prone Neuro Re-Education Treatment Balance Activities 4 Details fwd/back steps with EC Reps/Duration 10 B 3 Details backwards walking Comments started with standing hip ext with focus on core to start appropriate initiation 2 Details NBOS & WBOS & Staggered stsance Comments EC 1 Details tandem walking PT-OP-R Modalities Start: 08/01/17 07:26 Freq: Status: Active Protocol: Document 04/03/18 12:59 [facility] (Rec: 04/03/18 13:46 [facility] [id number]) Electric Stimulation Electric Stimulation Interferential Current (IFC) Body Location thoracic/lumbar spine Duration (Minutes) 15 Patient Position Prone Combined With Heat/Cold Cold Pack PT-OP-T Assessment and Plan Start: 08/01/17 07:26 Freq: Status: Active Protocol: Document 04/03/18 12:59 [facility] (Rec: 04/03/18 13:45 [facility] [id number]) Physical Therapy Assessment Goals Eight Impairment DGI Short Term Goal (STG) 19 STG Duration achieved Tobacco Weigher Goal (LTG) 24 LTG Duration achieved Seven Impairment core Senior Living Goal (LTG) 3/5 EFT, VCT, LPM LTG Duration 04/28/18-improvement Six Impairment gait Tobacco Weigher Goal (LTG) abnormality to trace LTG Duration achieved Five Impairment MMT [facility] Living Goal (LTG) 5/5 to allow progression of activity tolerance LTG Duration 04/08/1803-ppdoschym-KH only limited Three Impairment APRYL Tobacco Weigher Goal (LTG) 9 LTG Duration 03/23/18 Two Impairment pain Tobacco Weigher Goal (LTG) to 3/10 current LTG Duration 04/29/18- no change since last One Impairment positions Short Term Goal (STG) sit to stand w/o pain STG Duration achieved Tobacco Weigher Goal (LTG) no greater than 3/10 w/all activities LTG Duration 04/29/18 same as last re eval Assessment Summary Assessment Pt had dec pain w/backwards walking after cueing for core & hip ext exercise to focus on appropriate mechanics. Improving EC position but was challenged by staggered stance . Physical Therapy Plan Frequency and Duration Frequency of Treatment 1x/Week Duration of Treatment 1 month Plan of Care Start Date 03/13/18 Plan of Care End Date 04/13/18 Next Visit Focus/Plan Next Note Type Treatment Note Next Visit Plan cont to work on balacnce deficits to improve core control
--- NOTE | 2018-04-10 14:33 | PT.OTN ---
Current Diagnoses Other chronic pain (04/10/18) Radiculopathy, lumbar region (04/10/18) Abnormal posture (04/10/18) Weakness (04/10/18) Physical Therapy Treatment Note PT-OP-A Visit Information Start: 08/01/17 07:26 Freq: Status: Active Protocol: Document 04/10/18 13:20 [facility] (Rec: 04/10/18 14:33 [facility] [id number]) Out-Patient Physical Therapy Visit Information Visit Information Visit Type Treatment Note Visit Note 2 visit 2018 Visit Start Time 13:45 Visit Stop Time 14:40 Total Visit Minutes 55 Visit Number 04/06 Number of CAN FILLING AND CLOSING MACHINE TENDER Visits 0 PT-OP-C Subjective Start: 08/01/17 07:26 Freq: Status: Active Protocol: Document 04/10/18 13:20 [facility] (Rec: 04/10/18 14:33 [facility] [id number]) OP-PT Subjective Patient Comments Patient Comments Reports overall feels improvement PT-OP-D Balance Start: 08/01/17 07:26 Freq: Status: Active Protocol: Document 01/16/18 13:02 [facility] (Rec: 01/16/18 14:18 [facility] [id number]) Balance Tests Other Other Balance Tests Performed PT-OP-M Strength Start: 09/05/17 13:58 Freq: Status: Active Protocol: Document 04/10/18 13:20 [facility] (Rec: 04/10/18 14:33 [facility] [id number]) Trunk Strength Trunk Manual Muscle Testing Comments VCT: EFT: LPM R AP: R PA: L AP: L PA: Hip Strength Hip Manual Muscle Testing Right Internal Rotation 4+ Good+ Comments Pain with IR PT-OP-Q Treatments Start: 08/01/17 07:26 Freq: Status: Active Protocol: Document 04/10/18 13:20 [facility] (Rec: 04/10/18 14:33 [facility] [id number]) Therapeutic Exercises Sidelying Exercises 1 Sidelying Exercise Name reverse clamshell Side right Reps/Minutes 10 Sitting Exercises rotation Sitting Exercise Name IR Side right Comments lvl 1 Manual Therapy Treatment Soft Tissue Mobilization 1 Body Location QL & ES Mobilization Type Rolling Comments thoracic & lumbar Joint Mobilizations 4 Joint T7-9 Direction UPA & PA Grade II Body Position Prone 1 Joint sacrum Direction caudal FM Neuro Re-Education Treatment Other Activities FGA Details 1 Details post dep COI Comments R PT-OP-R Modalities Start: 08/01/17 07:26 Freq: Status: Active Protocol: Document 04/10/18 13:20 [facility] (Rec: 04/10/18 14:33 [facility] [id number]) Electric Stimulation Electric Stimulation Interferential Current (IFC) Body Location thoracic/lumbar spine Duration (Minutes) 15 Patient Position Prone Combined With Heat/Cold Cold Pack PT-OP-T Assessment and Plan Start: 08/01/17 07:26 Freq: Status: Active Protocol: Document 04/10/18 13:20 [facility] (Rec: 04/10/18 14:33 [facility] [id number]) Physical Therapy Assessment Goals Seven Impairment core Longterm Goal (LTG) 3/5 EFT, VCT, LPM LTG Duration achieved 3/5 Five Impairment MMT Longterm Goal (LTG) 5/5 to allow progression of activity tolerance LTG Duration 04/28/1832-knbaahefa-EP only limited Three Impairment APRYL Car Changer Goal (LTG) 9 LTG Duration 03/23/18 Two Impairment pain Car Changer Goal (LTG) to 3/10 current LTG Duration 04/29/18- 5/10 One Impairment positions Short Term Goal (STG) sit to stand w/o pain STG Duration achieved Car Changer Goal (LTG) no greater than 3/10 w/all activities LTG Duration 04/29/18 same as last re eval Assessment Summary Assessment Pt is improving with IR R strength and improving with core control but still is limited. He had improved with balance which demonstrates improved core contorl Physical Therapy Plan Frequency and Duration Frequency of Treatment 1x/Week Duration of Treatment 1 month Plan of Care Start Date 04/10/18 Plan of Care End Date 05/11/18 Therapeutic Interventions Therapeutic Interventions Aquatic Therapy Balance Training Gait Training Home Exercise Program Joint Mobilizations Manual Therapy Neuromuscular Re-education Soft Tissue Mobilization Taping Therapeutic Activities Therapeutic Exercises Modalities Cold Pack/Ice Massage Electric Stimulation Hot Packs Traction- Mechanical Ultrasound Next Visit Focus/Plan Next Note Type Treatment Note Next Visit Plan advance core
--- NOTE | 2018-04-10 14:34 | PT.OPPOC ---
Current Diagnoses Other chronic pain (04/10/18) Radiculopathy, lumbar region (04/10/18) Abnormal posture (04/10/18) Weakness (04/10/18) Provider Visit Care Team Role Provider Type Carina Hester DO Attending Provider Non-Staff Specialty: Family Practice Address: [address] [place] [address], [phone] Email: Plan Of Care PT-OP-T Assessment and Plan Start: 08/01/17 07:26 Freq: Status: Active Protocol: Document 04/10/18 13:20 [facility] (Rec: 04/10/18 14:33 [facility] [id number]) Physical Therapy Assessment Goals Seven Impairment core Book Retailer Goal (LTG) 3/5 EFT, VCT, LPM LTG Duration achieved 3/5 Five Impairment MMT Fpc Goal (LTG) 5/5 to allow progression of activity tolerance LTG Duration 04/28/1821-[id number]-GU only limited Three Impairment APRYL Fpc Goal (LTG) 9 LTG Duration 03/23/18 Two Impairment pain Fpc Goal (LTG) to 3/10 current LTG Duration 04/29/18- 5/10 One Impairment positions Short Term Goal (STG) sit to stand w/o pain STG Duration achieved Fpc Goal (LTG) no greater than 3/10 w/all activities LTG Duration 04/29/18 same as last re eval Assessment Summary Assessment Pt is improving with IR R strength and improving with core control but still is limited. He had improved with balance which demonstrates improved core contorl Physical Therapy Plan Frequency and Duration Frequency of Treatment 1x/Week Duration of Treatment 1 month Plan of Care Start Date 04/10/18 Plan of Care End Date 05/11/18 Therapeutic Interventions Therapeutic Interventions Aquatic Therapy Balance Training Gait Training Home Exercise Program Joint Mobilizations Manual Therapy Neuromuscular Re-education Soft Tissue Mobilization Taping Therapeutic Activities Therapeutic Exercises Modalities Cold Pack/Ice Massage Electric Stimulation Hot Packs Traction- Mechanical Ultrasound Next Visit Focus/Plan Next Note Type Treatment Note Next Visit Plan advance core Plan of Care Dates Plan of Care Start Date 04/10/18 Plan of Care End Date 05/11/18 Please Sign and Return: I have reviewed this Plan of Care and certify that the skilled therapy services above are required to meet the patient?s needs. Physician Signature Date Printed Name and Credentials Clinical Instructor Signature Printed Name and Credentials
--- NOTE | 2018-04-17 13:43 | PT.OTN ---
Current Diagnoses Other chronic pain (04/17/18) Radiculopathy, lumbar region (04/17/18) Abnormal posture (04/17/18) Weakness (04/17/18) Physical Therapy Treatment Note PT-OP-A Visit Information Start: 08/01/17 07:26 Freq: Status: Active Protocol: Document 04/17/18 13:00 [facility] (Rec: 04/17/18 13:43 [facility] [id number]) Out-Patient Physical Therapy Visit Information Visit Information Visit Type Treatment Note Visit Note 3 visit 2018 Visit Start Time 13:00 Visit Stop Time 13:55 Total Visit Minutes 55 Visit Number 05/07 Number of SPINNER BOX Visits 0 PT-OP-C Subjective Start: 08/01/17 07:26 Freq: Status: Active Protocol: Document 04/17/18 13:00 [facility] (Rec: 04/17/18 13:43 [facility] [id number]) OP-PT Subjective Patient Comments Patient Comments Reports he has pain in LB mostly in AM PT-OP-D Balance Start: 08/01/17 07:26 Freq: Status: Active Protocol: Document 01/16/18 13:02 [facility] (Rec: 01/16/18 14:18 [facility] [id number]) Balance Tests Other Other Balance Tests Performed PT-OP-M Strength Start: 09/05/17 13:58 Freq: Status: Active Protocol: Document 04/10/18 13:20 [facility] (Rec: 04/10/18 14:33 [facility] [id number]) Trunk Strength Trunk Manual Muscle Testing Comments VCT: EFT: LPM R AP: R PA: L AP: L PA: Hip Strength Hip Manual Muscle Testing Right Internal Rotation 4+ Good+ Comments Pain with IR PT-OP-Q Treatments Start: 08/01/17 07:26 Freq: Status: Active Protocol: Document 04/17/18 13:00 [facility] (Rec: 04/17/18 13:43 [facility] [id number]) Gym Equipment Cable Column (Body Solid) Rows Resistance 4 Reps/Time 15 Lat Pull Down Resistance 4 Reps/Time 15 Therapeutic Exercises Supine Exercises 3 Supine Exercise Name 1/2 foam roll flex, abd, HABd Reps/Minutes 10 Standing Exercises B ER Standing Exercise Name B ER Equipment Used lvl 2 Reps/Minutes 2x15 Manual Therapy Treatment Soft Tissue Mobilization 1 Body Location QL & ES Mobilization Type Rolling Comments thoracic & lumbar Joint Mobilizations 4 Joint T7-9 Direction UPA & PA Grade II Body Position Prone 3 Joint innominate R Direction caudal, ER FM 1 Joint sacrum Direction caudal FM PT-OP-R Modalities Start: 08/01/17 07:26 Freq: Status: Active Protocol: Document 04/17/18 13:00 [facility] (Rec: 04/17/18 13:43 [facility] [id number]) Electric Stimulation Electric Stimulation Interferential Current (IFC) Body Location thoracic/lumbar spine Duration (Minutes) 15 Patient Position Prone Combined With Heat/Cold Cold Pack PT-OP-T Assessment and Plan Start: 08/01/17 07:26 Freq: Status: Active Protocol: Document 04/17/18 13:00 [facility] (Rec: 04/17/18 13:43 [facility] [id number]) Physical Therapy Assessment Goals Seven Impairment core Residential Goal (LTG) 3/5 EFT, VCT, LPM LTG Duration achieved 3/5 Five Impairment MMT Physician Allergist Immunologist Goal (LTG) 5/5 to allow progression of activity tolerance LTG Duration 04/28/1840-njwnhtqgq-UA only limited Three Impairment APRYL Physician Allergist Immunologist Goal (LTG) 9 LTG Duration 03/23/18 Two Impairment pain Physician Allergist Immunologist Goal (LTG) to 3/10 current LTG Duration 04/29/18- 5/10 One Impairment positions Short Term Goal (STG) sit to stand w/o pain STG Duration achieved Residential Goal (LTG) no greater than 3/10 w/all activities LTG Duration 04/29/18 same as last re eval Assessment Summary Assessment Pt able to tolerate laying on softer 1/2 foam roll today and was instructed to use a beach towel at home. Pt required cueing w/UE exercises for rhomboid and appropriate scapular and core activiation. Physical Therapy Plan Frequency and Duration Frequency of Treatment 1x/Week Duration of Treatment 1 month Plan of Care Start Date 04/10/18 Plan of Care End Date 05/11/18 Next Visit Focus/Plan Next Note Type Treatment Note Next Visit Plan Review pt's exercise program and advance and edit as needed
--- NOTE | 2018-05-01 14:22 | PT.OTN ---
Current Diagnoses Other chronic pain (05/01/18) Radiculopathy, lumbar region (05/01/18) Abnormal posture (05/01/18) Weakness (05/01/18) Physical Therapy Treatment Note PT-OP-A Visit Information Start: 08/01/17 07:26 Freq: Status: Active Protocol: Document 05/01/18 14:15 [facility] (Rec: 05/01/18 14:22 [facility] [id number]) Out-Patient Physical Therapy Visit Information Visit Information Visit Type Treatment Note Visit Note 4 visit 2019 Visit Start Time 13:00 Visit Stop Time 13:55 Total Visit Minutes 55 Visit Number 3 Number of AUTOMOTIVE PARTS SPECIALIST Visits 0 PT-OP-C Subjective Start: 08/01/17 07:26 Freq: Status: Active Protocol: Document 05/01/18 14:15 [facility] (Rec: 05/01/18 14:22 [facility] [id number]) OP-PT Subjective Patient Comments Patient Comments Pt reports his thoracic spine has been feeling much better since last session. When he was sick last week, he noted when he coughed, he would feel pain in his L chest, but that is resolved. PT-OP-D Balance Start: 08/01/17 07:26 Freq: Status: Active Protocol: Document 01/16/18 13:02 [facility] (Rec: 01/16/18 14:18 [facility] [id number]) Balance Tests Other Other Balance Tests Performed PT-OP-M Strength Start: 09/05/17 13:58 Freq: Status: Active Protocol: Document 04/10/18 13:20 [facility] (Rec: 04/10/18 14:33 [facility] [id number]) Trunk Strength Trunk Manual Muscle Testing Comments VCT: EFT: LPM R AP: R PA: L AP: L PA: Hip Strength Hip Manual Muscle Testing Right Internal Rotation 4+ Good+ Comments Pain with IR PT-OP-Q Treatments Start: 08/01/17 07:26 Freq: Status: Active Protocol: Document 05/01/18 14:15 [facility] (Rec: 05/01/18 14:22 [facility] [id number]) Therapeutic Exercises Supine Exercises SKTC Supine Exercise Name SKTC c/r stretch Comments inc stretching time SLR Supine Exercise Name SLR w/focus on tilt 2 Supine Exercise Name LTR Side bilateral Comments focus on core to pull up legs 1 Supine Exercise Name pelvic tilt progressed to bridge Reps/Minutes 10 Comments tilt with focus on glute activation Other Exercises 2 Other Exercise Name plank 1 Other Exercise Name quad alt/opp arm/leg lift Side bilateral Reps/Minutes 5 Manual Therapy Treatment Soft Tissue Mobilization 5 Body Location thoracic paraspinals Mobilization Type Myofascial Release Rolling Comments FM w/deep breathing 1 Body Location QL & ES Mobilization Type Rolling Comments thoracic & lumbar Joint Mobilizations 4 Joint T7-9 Direction UPA & PA Grade II Body Position Prone 3 Joint innominate R Direction caudal, ER FM 1 Joint sacrum Direction caudal & PA FM PT-OP-R Modalities Start: 08/01/17 07:26 Freq: Status: Active Protocol: Document 05/01/18 14:15 [facility] (Rec: 05/01/18 14:22 [facility] [id number]) Electric Stimulation Electric Stimulation Interferential Current (IFC) Body Location thoracic/lumbar spine Duration (Minutes) 15 Patient Position Prone Combined With Heat/Cold Cold Pack PT-OP-T Assessment and Plan Start: 08/01/17 07:26 Freq: Status: Active Protocol: Document 05/01/18 14:15 [facility] (Rec: 05/01/18 14:22 [facility] [id number]) Physical Therapy Assessment Goals Seven Impairment core Halfway Goal (LTG) 3/5 EFT, VCT, LPM LTG Duration achieved 3/5 Five Impairment MMT Prosthetic Lab Technician Goal (LTG) 5/5 to allow progression of activity tolerance LTG Duration 04/28/1882-yioszvkbr-OT only limited Three Impairment APRYL Halfway Goal (LTG) 9 LTG Duration 03/23/18 Two Impairment pain Halfway Goal (LTG) to 3/10 current LTG Duration 04/29/18- 5/10 One Impairment positions Short Term Goal (STG) sit to stand w/o pain STG Duration achieved Prosthetic Lab Technician Goal (LTG) no greater than 3/10 w/all activities LTG Duration 04/29/18 same as last re eval Assessment Summary Assessment Pt had improved performance of exercise with cueing. He required reminder to do post tilt to stabilize spine before doing exercises. He cont to improve with form. Less paraspinal tightness in thoracic spine today. Physical Therapy Plan Frequency and Duration Frequency of Treatment 1x/Week Duration of Treatment 1 month Plan of Care Start Date 04/10/18 Plan of Care End Date 05/11/18 Next Visit Focus/Plan Next Note Type Progress Note Next Visit Plan Review as needed and re assess to determine plan
--- NOTE | 2018-05-08 15:12 | PT.OTN ---
Current Diagnoses Other chronic pain (05/08/18) Radiculopathy, lumbar region (05/08/18) Abnormal posture (05/08/18) Weakness (05/08/18) Physical Therapy Treatment Note PT-OP-A Visit Information Start: 08/01/17 07:26 Freq: Status: Active Protocol: Document 05/08/18 13:04 [facility] (Rec: 05/08/18 15:12 [facility] [id number]) Out-Patient Physical Therapy Visit Information Visit Information Visit Type Treatment Note Visit Note 5 visit 2018 Visit Start Time 13:00 Visit Stop Time 13:55 Total Visit Minutes 55 Visit Number 5 Number of GEOPHYSICAL LABORATORY DIRECTOR Visits 0 PT-OP-C Subjective Start: 08/01/17 07:26 Freq: Status: Active Protocol: Document 05/08/18 13:04 [facility] (Rec: 05/08/18 15:12 [facility] [id number]) OP-PT Subjective Patient Comments Patient Comments Pt reports overall doing well with HEP PT-OP-D Balance Start: 08/01/17 07:26 Freq: Status: Active Protocol: Document 01/16/18 13:02 [facility] (Rec: 01/16/18 14:18 [facility] [id number]) Balance Tests Other Other Balance Tests Performed PT-OP-M Strength Start: 09/05/17 13:58 Freq: Status: Active Protocol: Document 04/10/18 13:20 [facility] (Rec: 04/10/18 14:33 [facility] [id number]) Trunk Strength Trunk Manual Muscle Testing Comments VCT: EFT: LPM R AP: R PA: L AP: L PA: Hip Strength Hip Manual Muscle Testing Right Internal Rotation 4+ Good+ Comments Pain with IR PT-OP-Q Treatments Start: 08/01/17 07:26 Freq: Status: Active Protocol: Document 05/08/18 13:04 [facility] (Rec: 05/08/18 15:12 [facility] [id number]) Therapeutic Exercises Standing Exercises 3 Standing Exercise Name rows Comments reviewd option w/tband & wt column w/neutral posture 2 Standing Exercise Name standing on bosu 1 Standing Exercise Name standing marching Manual Therapy Treatment Soft Tissue Mobilization 5 Body Location thoracic paraspinals Mobilization Type Myofascial Release Rolling Comments FM w/deep breathing 1 Body Location QL & ES Mobilization Type Rolling Comments lumbar Joint Mobilizations 5 Joint hip Direction on axis ER FM 4 Joint T7-9 Direction UPA & PA Grade II Body Position Prone 1 Joint sacrum Direction caudal & PA FM PT-OP-R Modalities Start: 08/01/17 07:26 Freq: Status: Active Protocol: Document 05/08/18 13:04 [facility] (Rec: 05/08/18 15:12 [facility] [id number]) Electric Stimulation Electric Stimulation Interferential Current (IFC) Body Location thoracic/lumbar spine Duration (Minutes) 15 Patient Position Prone Combined With Heat/Cold Cold Pack PT-OP-T Assessment and Plan Start: 08/01/17 07:26 Freq: Status: Active Protocol: Document 05/08/18 13:04 [facility] (Rec: 05/08/18 15:12 [facility] [id number]) Physical Therapy Assessment Goals Seven Impairment core Skilled Nursing Goal (LTG) 3/5 EFT, VCT, LPM LTG Duration achieved 3/5 Five Impairment MMT Title Investigator Goal (LTG) 5/5 to allow progression of activity tolerance LTG Duration 04/28/1825-fgtsmwrpq-XP only limited Three Impairment APRYL Title Investigator Goal (LTG) 9 LTG Duration 03/23/18 Two Impairment pain Skilled Nursing Goal (LTG) to 3/10 current LTG Duration 04/29/18- 5/10 One Impairment positions Short Term Goal (STG) sit to stand w/o pain STG Duration achieved Title Investigator Goal (LTG) no greater than 3/10 w/all activities LTG Duration 04/29/18 same as last re eval Assessment Summary Assessment Pt has made significant improvement overl course of treatment with lifting mechanics, exercise program performance, balance, and LE and core strength. He is beginning to plateau at this time and is d/c from PT in order to progress his strength & balance with his HEP. Physical Therapy Plan Discharge Physical Therapy Discharge Reasons Plateau in Progress Discharge Comments Pt has made significant progress with posture, strength, balance and core stability.
--- NOTE | 2018-05-08 15:12 | PT.OPDS ---
Current Diagnoses Other chronic pain (05/08/18) Radiculopathy, lumbar region (05/08/18) Abnormal posture (05/08/18) Weakness (05/08/18) Provider Visit Care Team Role Provider Type Carina Hester DO Attending Provider Non-Staff Specialty: Family Practice Address: [address] [place] [address], [phone] Email: Visit Number Visit Number 5 Discharge Summary PT-OP-C Subjective Start: 08/01/17 07:26 Freq: Status: Active Protocol: Document 05/08/18 13:04 [facility] (Rec: 05/08/18 15:12 [facility] [id number]) OP-PT Subjective Patient Comments Patient Comments Pt reports overall doing well with HEP PT-OP-D Balance Start: 08/01/17 07:26 Freq: Status: Active Protocol: Document 01/16/18 13:02 [facility] (Rec: 01/16/18 14:18 [facility] [id number]) Balance Tests Other Other Balance Tests Performed - PT-OP-M Strength Start: 09/05/17 13:58 Freq: Status: Active Protocol: Document 04/10/18 13:20 [facility] (Rec: 04/10/18 14:33 [facility] [id number]) Trunk Strength Trunk Manual Muscle Testing Comments VCT: EFT: LPM R AP: R PA: L AP: L PA: Hip Strength Hip Manual Muscle Testing Right Internal Rotation 4+ Good+ Comments Pain with IR PT-OP-T Assessment and Plan Start: 08/01/17 07:26 Freq: Status: Active Protocol: Document 05/08/18 13:04 [facility] (Rec: 05/08/18 15:12 [facility] [id number]) Physical Therapy Assessment Goals Seven Impairment core Custodial Goal (LTG) 3/5 EFT, VCT, LPM LTG Duration achieved 3/5 Five Impairment MMT Custodial Goal (LTG) 5/5 to allow progression of activity tolerance LTG Duration 04/28/1879-pkjekiork-FW only limited Three Impairment APRYL Custodial Goal (LTG) 9 LTG Duration 03/23/18 Two Impairment pain Geotechnician Goal (LTG) to 3/10 current LTG Duration 04/29/18- 5/10 One Impairment positions Short Term Goal (STG) sit to stand w/o pain STG Duration achieved Custodial Goal (LTG) no greater than 3/10 w/all activities LTG Duration 04/29/18 same as last re eval Assessment Summary Assessment Pt has made significant improvement overl course of treatment with lifting mechanics, exercise program performance, balance, and LE and core strength. He is beginning to plateau at this time and is d/c from PT in order to progress his strength & balance with his HEP. Physical Therapy Plan Discharge Physical Therapy Discharge Reasons Plateau in Progress Discharge Comments Pt has made significant progress with posture, strength, balance and core stability.
== END 2018-06-27 16:54 ==
LOC: PHYS 13:00
PROVIDERS: Visit Provider Family Medicine
DX: M54.16 Radiculopathy, lumbar region (principal); G89.29 Other chronic pain; R53.1 Weakness; R29.3 Abnormal posture
CPT/HCPCS: 97014; 97110; 97112; 97116; 97140; 97530; 97535; G0283

== ENCOUNTER 2018-11-09 09:45 | Day surgery (SDC) | payer OTHER, MEDICAID, SELFPAY ==
[2018-11-08 11:23] VITALS: BMI 31.4
[2018-11-09] VITALS (16 sets, daily range): BP systolic 115–147; BP diastolic 80–91; PULSE 74–97; RESP 10–18; TEMP 36.1–36.8; O2SAT 82–99; BMI 30.7
--- NOTE | 2018-11-09 | DI.RAD.S_ITS ---
PROCEDURE: XR LUMBAR SPINE 1V INDICATIONS: L4-5 LAMINECTOMY TECHNIQUE: Single views of the lumbar spine were acquired. COMPARISON: [facility], , L-SPINE 2-3 VIEWS, 09/11/2013, 11:33. FINDINGS: Spot fluoroscopic images demonstrate a surgical instrument with the tip projecting at the L4-L5 level in the posterior paraspinal soft tissues Dictated by: Micky Kang M.D. on 11/09/2018 at 11:48 Approved by: Micky Kang M.D. on 11/09/2018 at 11:50
[2018-11-09] MEDS: LACTATED RINGERS 1,000 ML 42 ML IV ×2 (10:07→11:26)
--- NOTE | 2018-11-09 10:11 | PM.PREOP ---
Pre-operative Note Interval Note History & Physical reviewed/Exam performed by Physician: Yes Changes to H&P: No
[2018-11-09] MEDS: CEFAZOLIN 2 GM/100 ML FROZ.PIGGY IV (10:39)
--- NOTE | 2018-11-09 11:06 | SUR.OPER ---
Prone on spine table, head in foam head support, padded chest and pelvic supports, gel pad at knees, lower legs supported by pillows; nipples, genitalia and toes free of pressure, arms secured on foam padded arm boards at <90 degrees abduction. Tape over blanket at thigh secured to table.
[2018-11-09] MEDS: VANCOMYCIN 1,000 MG VIAL 1000 MG TOP (11:15)
[2018-11-09] MEDS: BUPIVACAINE 0.25% (PF) 8 ML, fentaNYL 100 MCG INJ (11:16)
[2018-11-09] MEDS: SODIUM CHLORIDE 0.9% 1,000 ML, GENTAMICIN 80 MG IRR (11:16)
[2018-11-09] MEDS: THROMBIN (RECOMBINANT) 5,000 UNIT VIAL 5000 UNIT TOP (11:17)
--- NOTE | 2018-11-09 12:12 | P.OP_ITS ---
Operative Date/Time/Diagnoses Date of procedure: 11/09/18 Time of procedure: 12:10 Pre-op diagnosis: lumbar stenosis with radiculopathy Post-op diagnosis: same Procedure & Clinicians Procedure: L45 laminectomy microscope placement of epidural catheter Same procedure as scheduled: Yes Indications: [age] year old male with intractable pain from stenosis. They had failed conservative management and requested operative intervention. Risks and benefits of surgery were discussed and appropriate consents were obtained. Surgeon: Renzo Arnold Bench Assembler Electrical: Carmenza Tolbert Anesthesia Type: General Operative Notes Findings: None Closure Type: primary Specimen(s): none sent Estimated Blood Loss (mL): 10 Blood products transfused: none Procedure in detail: Patient was brought to the operating room and intubated on the table. They were rolled over on the well-padded prone position on the Harrison table. A time-out was performed. Preoperative antibiotics were given. The back was prepped and draped in standard sterile fashion. Using fluoroscopy for localization, a 4 cm incision was made in the midline. We used Bovie to dissect through the lumbodorsal fascia and then subperiosteally dissect the paraspinal muscles off the right side. A marker was placed and x-ray was taken to confirm positioning. We then brought in the microscope. A right-sided laminectomy was performed at L4-5. We carefully depressed the dura and reached across the midline to deco mpress the opposite side. He had an adhesive cyst in the midline at the L4-5 interface. This was carefully dissected out. We freed this up and removed it, but there was still a little residual scar over the dura from the residual cyst that I did not want to risk with any further attempt at removal without risking a dural tear. The neural foramen were cleared out. At the end, we could reach with the ball probe cephalad and caudally across the midline and to the foramen and everything was opened. The wound was irrigated. An epidural catheter was prepared with 8 mL of 0.25% Marcaine and 100 mcg of fentanyl. The dura was carefully depressed and the catheter was advanced 6 cm cephalad underneath remaining lamina without resistance. The fascia was then closed in layers. The epidural catheter was injected without complications. Vancomycin powder was placed in the wound. The superficial and the skin were closed. Sterile dressing was placed. Patient was rolled over extubated brought to recovery room with no complications. Complications: none Condition: stable Disposition: PACU Plan for aftercare: Outpatient. Limited been twist and lift for 6 weeks.
[2018-11-09] MEDS: HYDROMORPHONE 2 MG INJ 0.5 MG IV ×8 (12:25→13:00)
[2018-11-09] MEDS: fentaNYL 100 MCG/2 ML INJ 50 MCG IV ×2 (13:05→13:10)
[2018-11-09] MEDS: hydrOXYzine 50 MG/ML INJ 25 MG IM (13:29)
[2018-11-09] MEDS: OXYCODONE/ACETAMINOPHEN 5/325 TABLET 1 TAB PO (13:34)
--- NOTE | 2018-11-09 14:08 | SUR.PHASEI ---
pt states 6/10 back pain. FLACC is 3/10 he is relaxed and sitting up in bed drinking a hot beverage. he is alert and oriented x 3 and states rere he lives daily with 6/10 pain andthis is tolerable for him. feels comfortable to be discharged to home
== END 2018-11-09 15:14 | disposition home or self-care (01) ==
PROVIDERS: PCP Family Medicine; Visit Provider Orthopaedic Surgery
PROC: (CPT 63047; principal; 2018-11-09 11:15)
DX: M48.062 Spinal stenosis, lumbar region with neurogenic claudication (principal); M54.16 Radiculopathy, lumbar region; I10 Essential (primary) hypertension; Z87.891 Personal history of nicotine dependence
CPT/HCPCS: 63047; 72020; 76000; J0330; J0690; J1100; J1170; J2405; J2704; J3010; J3410

== ENCOUNTER 2019-01-24 14:30 | Outpatient (RCR) | payer MEDICARE, OTHER, MEDICAID, SELFPAY ==
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
--- NOTE | 2018-08-31 15:20 | PT.OPPOC ---
Current Diagnoses Other chronic pain (08/31/18) Lumbago with sciatica, right side (08/31/18) Lumbago with sciatica, left side (08/31/18) Provider Visit Care Team Role Provider Type Carina Hester DO Attending Provider Non-Staff Primary Care Provider Specialty: Family Practice Address: [address] [place] [address], [id number] Email: Plan Of Care PT-OP-T Assessment and Plan Start: 07/07/18 07:27 Freq: Status: Active Protocol: Document 08/31/18 11:24 [facility] (Rec: 08/31/18 12:12 [facility] [id number]) Physical Therapy Assessment Rehab Potential Rehabilitation Potential Good Evaluation Complexity Number of Personal Factors/Comorbidities 3 or More Number of Body Systems Impaired 4 or More Clinical Presentation at Evaluation Evolving Impairments Impairments Activity Tolerance Balance Functional Activities Functional Mobility Gait Pain Posture ROM Soft Tissue Mobility Strength Goals Six Impairment strength Usp Goal (LTG) Pt will have 5/5 UE strength in RUE in order to allow him to return to typical housework , workouts, and yard work without pain LTG Duration 10/31/18 Five Impairment FGA Usp Goal (LTG) Pt will be able to be tested on FGA and score 26/30 to show dec in fall risk. 08/31-did not test d/t time for eval of shoulder; improved tolerance to gait LTG Duration 09/06/18 Four Cellophane Worker Goal (LTG) Pt will have full ROM of R shoulder allowing him to do adls. LTG Duration 10/31/18 Three Impairment activity Short Term Goal (STG) Pt will be able to sleep comfortably through the night. 08/31-difficulty for sleeping through entire night STG Duration 10/06/18 Usp Goal (LTG) Pt will be able to return to walking 2 miles daily with very little inc in symptoms. 08/31-pt able to do bike daidly and is doing small walks LTG Duration 11/06/18 Two Impairment Oswestry Short Term Goal (STG) Pt will score 17/50 in order to demonstrate improved functional ability. STG Duration 10/06/18 Cellophane Worker Goal (LTG) Pt will score 12/50 or less to show improved functional activity tolerance. LTG Duration 11/06/18 One Impairment strength Short Term Goal (STG) Pt will be indep with HEP STG Duration achieved advancing as needed Usp Goal (LTG) Pt will have 5/5 LE strength demonstrating inc functional ability. /6-improving LTG Duration 11/06/18 Assessment Summary Assessment Pt has made functional gains with improved mobility and pain tolerance in back since starting therapy. He presents today w/new referal for current shoulder pain which is likely d/t rotator cuff pathology, possibly impingement. He required cueing for use of B walking sticks as MD wanted him trained. Physical Therapy Plan Frequency and Duration Frequency of Treatment 1x/Week Duration of Treatment 2 months Plan of Care Start Date 08/31/18 Plan of Care End Date 10/31/18 Therapeutic Interventions Therapeutic Interventions Aquatic Therapy Balance Training Gait Training Home Exercise Program Joint Mobilizations Manual Therapy Neuromuscular Re-education Patient/Caregiver Education Self-Care/Home Management Soft Tissue Mobilization Taping Therapeutic Activities Therapeutic Exercises Modalities Cold Pack/Ice Massage Electric Stimulation Hot Packs Infrared Therapy Iontophoresis Traction- Mechanical Ultrasound Next Visit Focus/Plan Next Note Type Treatment Note Next Visit Plan Advance movement as tolerated and work on dec pain Plan of Care Dates Plan of Care Start Date 08/31/18 Plan of Care End Date 10/31/18 Please Sign and Return: I have reviewed this Plan of Care and certify that the skilled therapy services above are required to meet the patient?s needs. Physician Signature Date Printed Name and Credentials Clinical Instructor Signature Printed Name and Credentials
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
--- NOTE | 2018-10-25 16:19 | PT.OPPOC ---
Current Diagnoses Other chronic pain (10/25/18) Lumbago with sciatica, right side (10/25/18) Lumbago with sciatica, left side (10/25/18) Provider Visit Care Team Role Provider Type Carina Hester DO Attending Provider Non-Staff Primary Care Provider Specialty: Family Practice Address: [address] [place] [address], [phone] Email: Plan Of Care PT-OP-T Assessment and Plan Start: 07/07/18 07:27 Freq: Status: Active Protocol: Document 10/25/18 13:47 [facility] (Rec: 10/25/18 16:01 [facility] [id number]) Physical Therapy Assessment Goals Six Impairment strength Custodial Goal (LTG) Pt will have 5/5 UE strength in RUE in order to allow him to return to typical housework , workouts, and yard work without pain 10/25-improving strength LTG Duration Five Impairment FGA Custodial Goal (LTG) Pt will be able to be tested on FGA and score 26/30 to show dec in fall risk. 08/31-did not test d/t time for eval of shoulder; improved tolerance to gait -unable to tolerate today d/t flare up LTG Duration Four Custodial Goal (LTG) Pt will have full ROM of R shoulder allowing him to do adls. 10/25-significant improvement LTG Duration Three Impairment activity Short Term Goal (STG) Pt will be able to sleep comfortably through the night. 08/31-difficulty for sleeping through entire night STG Duration 11/25/18 Therapeutic Program Worker Goal (LTG) Pt will be able to return to walking 2 miles daily with very little inc in symptoms. 08/31-pt able to do bike daidly and is doing small walks LTG Duration Two Impairment Oswestry Short Term Goal (STG) Pt will score 17/50 in order to demonstrate improved functional ability. STG Duration 11/25/18 Custodial Goal (LTG) Pt will score 12/50 or less to show improved functional activity tolerance. LTG Duration One Impairment strength Short Term Goal (STG) Pt will be indep with HEP STG Duration achieved advancing as needed Therapeutic Program Worker Goal (LTG) Pt will have 5/5 LE strength demonstrating inc functional ability. 08/31-improving 10/25-some improvement in areas and dec in others d/t inc pain today after MRI LTG Duration 11/06/18 Assessment Summary Assessment Pt is improving with his ROM and strength of shoulder. AROM was better last week but pt had significan tinc pain after positioning in MRI. He is advancing with core but still has difficulaty faciliating appropriately w/o cueing. Physical Therapy Plan Frequency and Duration Frequency of Treatment 1x/Week Duration of Treatment 2 months Plan of Care Start Date 10/25/18 Plan of Care End Date 12/25/18 Therapeutic Interventions Therapeutic Interventions Aquatic Therapy Balance Training Gait Training Home Exercise Program Joint Mobilizations Manual Therapy Neuromuscular Re-education Patient/Caregiver Education Self-Care/Home Management Soft Tissue Mobilization Taping Therapeutic Activities Therapeutic Exercises Modalities Cold Pack/Ice Massage Electric Stimulation Hot Packs Infrared Therapy Iontophoresis Traction- Mechanical Ultrasound Next Visit Focus/Plan Next Note Type Treatment Note Next Visit Plan Cont to work on progressing shoulder ROM & strength Plan of Care Dates Plan of Care Start Date 10/25/18 Plan of Care End Date 12/25/18 Please Sign and Return: I have reviewed this Plan of Care and certify that the skilled therapy services above are required to meet the patient?s needs. Physician Signature Date Printed Name and Credentials Clinical Instructor Signature Printed Name and Credentials
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
--- NOTE | 2018-12-07 14:06 | PT-OP ANOTE ---
Pt called 2x, but phone rang then became silent after about 8 rings. No answering machine received.
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
--- NOTE | 2018-12-11 11:02 | PT.OPPOC ---
Current Diagnoses Other chronic pain (12/11/18) Lumbago with sciatica, right side (12/11/18) Lumbago with sciatica, left side (12/11/18) Unspecified injury of muscle(s) and tendon(s) of the rotator cuff of right shoulder, sequela (12/11/18) Visit Care Team Role Provider Type Carina Hester DO Attending Provider Non-Staff Primary Care Provider Specialty: [facility] Address: [address] [place] [address], [id number] Email: Plan Of Care PT-OP-T Assessment and Plan Start: 07/07/18 07:27 Freq: Status: Active Protocol: Document 12/11/18 10:45 [facility] (Rec: 12/11/18 11:00 [facility] [id number]) Physical Therapy Assessment Goals Six Impairment strength Longterm Goal (LTG) Pt will have 5/5 UE strength in RUE in order to allow him to return to typical housework , workouts, and yard work without pain 10/25-improving strength LTG Duration Five Impairment FGA Longterm Goal (LTG) Pt will be able to be tested on FGA and score 26/30 to show dec in fall risk. 08/31-did not test d/t time for eval of shoulder; improved tolerance to gait -unable to tolerate today d/t flare up LTG Duration 02/10/19 Four Longterm Goal (LTG) Pt will have full ROM of R shoulder allowing him to do adls. 10/25-significant improvement LTG Duration Three Impairment activity Short Term Goal (STG) Pt will be able to sleep comfortably through the night. 08/31-difficulty for sleeping through entire night 12/11-improving ability to sleep STG Duration 12/26/18 Claims Adjuster Crop Goal (LTG) Pt will be able to return to walking 2 miles daily with very little inc in symptoms. 6-pt able to do bike daidly and is doing small walks 12/11-improved to walking on treadmill daily LTG Duration 01/13/19 Two Impairment Oswestry Short Term Goal (STG) Pt will score 17/50 in order to demonstrate improved functional ability. STG Duration 01/10/19 Claims Adjuster Crop Goal (LTG) Pt will score 12/50 or less to show improved functional activity tolerance. LTG Duration 02/10/19 One Impairment strength Short Term Goal (STG) Pt will be indep with HEP STG Duration achieved advancing as needed Longterm Goal (LTG) Pt will have 5/5 LE strength demonstrating inc functional ability. 08/31-improving 10/25-some improvement in areas and dec in others d/t inc pain today after MRI LTG Duration 02/10/19 Assessment Summary Assessment Referal for s/p lumbar surgery was sent today. Reviewed with pt appropriate lumbar exercises to do and reviewed on how to work on gradually inc range and disassociating lumbar spine from hips. He had significant difficultyw ith hip hinge and squats he was performing at home included signfiicant lumbar flexion. Physical Therapy Plan Frequency and Duration Frequency of Treatment 1x/Week Duration of Treatment 2 months Plan of Care Start Date 12/11/18 Plan of Care End Date 02/10/19 Therapeutic Interventions Therapeutic Interventions Balance Training,Gait Training ,Home Exercise Program,Joint Mobilizations,Manual Therapy, Neuromuscular Re-education, Patient/Caregiver Education, Self-Care/Home Management,Soft Tissue Mobilization,Taping, Therapeutic Activities, Therapeutic Exercises Modalities Cold Pack/Ice Massage,Electric Stimulation,Hot Packs, Infrared Therapy,Ultrasound Next Visit Focus/Plan Next Note Type Treatment Note Next Visit Plan seated and standing posture with work on to wt shift and wt acceptance into LEs Plan of Care Dates Plan of Care Start Date 12/11/18 Plan of Care End Date 02/10/19 Please Sign and Return: I have reviewed this Plan of Care and certify that the skilled therapy services above are required to meet the patient?s needs. Physician Signature Date Printed Name and Credentials Clinical Instructor Signature Printed Name and Credentials
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
== END 2019-01-24 15:30 ==
LOC: PHYS 14:30
PROVIDERS: PCP Family Medicine; Visit Provider Family Medicine
DX: M54.42 Lumbago with sciatica, left side (principal); M54.41 Lumbago with sciatica, right side; G89.29 Other chronic pain; S46.001S Unspecified injury of muscle(s) and tendon(s) of the rotator cuff of right shoulder, sequela
CPT/HCPCS: 97010; 97014; 97110; 97112; 97116; 97140; 97162; 97164; 97530; 97535; G0283

== ENCOUNTER 2019-03-20 12:11 | Emergency (ER) | payer OTHER, MEDICAID, SELFPAY ==
[2019-03-20 12:20] VITALS: BP 181/114; PULSE 90; RESP 18; TEMP 36.9; O2SAT 98
[2019-03-20 13:50] LABS: Add Manual Diff / Slide Review NO; Basophils Absolute Auto 0 /uL (0-100); Basophils Percent Auto 0.5 % (0-2); Eosinophils Absolute Auto 100 /uL (0-450); Eosinophils Percent Auto 0.8 % (2-4); Hematocrit 41.2 % (41-53); Hemoglobin 14.2 g/dL (13.5-17.5); Lymphocytes Absolute Auto 2300 /uL (1100-4500); Lymphocytes Percent Auto 34.6 % (25-40); Mean Corpuscular HGB Conc 34.5 % (30-36); Mean Corpuscular Hemoglobin 29.9 PG (26-34); Mean Corpuscular Volume 86.8 fL (80-100); Monocytes Absolute Auto 600 /uL (0-900); Monocytes Percent Auto 8.7 % (3-14); Neutrophils Absolute Auto 3600 /uL (1500-7000); Neutrophils Percent Auto 55.4 % (50-75); Platelet Count 228 X10^3/uL (150-400); Red Blood Cell Count 4.75 X10^6/uL (4.5-5.9); Red Cell Distribution Width 13.6 % (11.6-14.8); White Blood Cell Count 6.6 X10^3/uL (4.5-11.0)
[2019-03-20 13:51] LABS: Prothrombin Time 11.1 SECONDS (10.1-12.7)
[2019-03-20 13:52] LABS: Alanine Aminotransferase 28 IU/L (<50); Albumin 3.9 g/dL (3.5-5.0); Albumin Globulin Ratio 1.4 (1.0-2.8); Alkaline Phosphatase 69 U/L (38-126); Aspartate Aminotransferase 30 IU/L (17-59); BUN Creatinine Ratio 24.3 (6-22); Bilirubin Total 0.6 mg/dL (0.2-1.3); Blood Urea Nitrogen 17 mg/dL (9-20); Calcium 8.9 mg/dL (8.4-10.2); Carbon Dioxide 27 mmol/L (22-32); Chloride 104 mmol/L (98-107); Creatine Kinase 110 U/L (55-170); Estimated Glomerular Filt Rate > 60.0 mL/min (>60); Globulin 2.7 g/dL (1.7-4.1); Glucose 99 mg/dL (80-110); HEMOLYSIS < 15 (0-50); Lipase 40 U/L (23-300); Magnesium 2.2 mg/dL (1.6-2.3); Sodium 138 mmol/L (137-145); Total Protein 6.6 g/dL (6.3-8.2)
[2019-03-20 13:53] LABS: PTT Partial Thromboplastin Tim 29 SECONDS (26.4-36.2)
[2019-03-20 14:04] LABS: Troponin I < 0.012 ng/mL (0.01-0.034)
[2019-03-20 14:07] LABS: CKMB % Relative Index 1.8 % (1.5-5.0); Creatine Kinase MB 1.94 ng/mL (<2.37)
[2019-03-20 14:16] VITALS: BP 153/89; PULSE 66; RESP 20
--- NOTE | 2019-03-20 14:30 | ED_ITS ---
HPI - Dizziness General Chief Complaint: Dizziness Stated Complaint: dizzy Time Seen by Provider: 03/20/19 12:29 Source: patient Mode of arrival: Ambulatory Limitations: no limitations History of Present Illness HPI Narrative: Patient presents to the emergency department complaining of vertigo on and off for the last few days. The patient has a history of vertigo previously, but states that this episode seems to be worse. He states it is definitely positional and motion-triggered. He states that when the vertigo gets bad, he gets nauseated, and he has vomited once. Patient also notes that it feels as though he is having a migraine. He has a longstanding history of these and normally takes sumatriptan, but was unable this morning because he felt too dizzy and nauseated. He states that the headache feels like his usual migraines. Patient denies fevers. No recent head injury. No chest pain or shortness of breath. Patient does admit to some lightheadedness. No tinnitus. No other complaints at this time. Related Data Home Medications Medication Instructions Recorded Confirmed meloxicam 7.5 - 15 mg PO DAILY 11/09/18 03/20/19 lisinopril 20 mg PO DAILY 03/20/19 03/20/19 sumatriptan succinate 25 mg PO PRN PRN 03/20/19 03/20/19 Allergies Allergy/AdvReac Type Severity Reaction Status Date / Time No Known Drug Allergies Allergy Verified 11/09/18 10:17 Review of Systems Constitutional Constitutional: Denies chills, Denies fatigue, Denies fever(s), Denies frequent falls, Denies lethargy and Denies weakness Eyes Eyes: Denies change in vision, Denies eye discharge, Denies irritation and Denies loss of vision ENT Ears, Nose, Mouth, and Throat: Denies change in voice, Reports vertigo, Reports dizziness, Denies neck pain, Denies sore throat and Denies throat swelling Cardiovascular Cardiovascular: Denies chest pain, Denies irregular heart rhythm, Reports lightheadedness (Mild), Denies palpitations, Denies dyspnea, Denies dyspnea on exertion and Denies orthopnea Respiratory Respiratory: Denies cough, Denies dyspnea, Denies dyspnea on exertion and Denies wheezing Gastrointestinal Gastrointestinal: Denies abdominal pain, Denies change in bowel habits, Denies diarrhea, Denies nausea and Denies vomiting Genitourinary Genitourinary: Denies hematuria, Denies flank pain, Denies urinary incontinence and Denies urinary urgency Musculoskeletal Musculoskeletal: Denies back pain, Denies muscle weakness, Denies neck pain, Denies numbness and Denies tingling Integumentary/Breasts Skin/Breast: Denies pruritus, Denies erythema, Denies rash and Denies wounds Neurologic Neurologic: Denies behavioral changes, Denies confusion, Reports vertigo, Reports dizziness, Denies frequent falls, Denies loss of vision, Denies n umbness, Denies tingling and Denies weakness Psychiatric Psychiatric: Denies anxiety, Denies behavioral changes, Denies confusion, Denies depression, Denies homicidal ideation and Denies suicidal ideation Endocrine Endocrine: Denies fatigue, Denies flushing and Denies palpitations Hematologic/Lymphatic Hematologic/Lymphatic: Denies easy bruising Allergic/Immunologic Allergic/Immunologic: Denies urticaria, Denies throat swelling and Denies w heezing Patient History Medical History Arthritis (Acute) HTN (hypertension) (Acute) Low back pain (Acute) Migraines (Acute) Numbness and tingling (Acute) Sciatica (Acute) Surgical History Hx of tonsillectomy (Acute) Hx of umbilical hernia repair (Acute 06/16/17) S/P excision of ganglion cyst (Acute) Social History household members: none Smoking Status: Never smoker alcohol intake: current Smoking Status: Never smoker alcohol intake frequency: 0-2 drinks per day Substance Use Type: marijuana Exam Initial Vital Signs Initial Vital Signs: Vital Signs Temperature 98.4 F 03/20/19 12:20 Pulse Rate 90 03/20/19 12:20 Respiratory Rate 18 03/20/19 12:20 Blood Pressure 181/114 H 03/20/19 12:20 Pulse Oximetry 98 03/20/19 12:20 Const General: cooperative and well developed Nutritional Appearance: well nourished Orientation: alert, awake, oriented x3 and not confused HENMT Head: normocephalic and atraumatic Ears: external ears normal and TM's normal bilaterally Nose: external nose normal and No nasal discharge Face and sinus: face symmetric and No dry mucous membranes Mouth: oral mucosae normal and moist mucous membranes Teeth and gingiva: dentition normal Eyes General: appearance normal, both eyes and all related structures Eyelids: eyelids normal Conjunctivae: conjunctivae normal Sclera: sclerae normal Pupils: PERRL EOM: EOM intact bilaterally Neck Neck: normal visual inspection, trachea midline, No lymphadenopathy, No midline deformity and No JVD Lymphatic: No lymphedema Chest Chest: normal inspection of the chest Resp Effort & Inspection: normal respiratory effort, able to speak in complete sentences, no respiratory distress and no use of accessory muscles Auscultation: clear to auscultation bilaterally, no rales, no rhonchi and no wheezes Cardio Rate: regular rate Rhythm: regular rhythm Heart Sounds: no click, no gallops, no murmurs and no rubs Pulses: normal peripheral pulses GI Inspection: non-distended Palpation: soft, no hepatosplenomegaly, No guarding, No pulsatile mass and No tender Back/Spine/Pelvis Back: No CVA tenderness Cervical Spine: cervical ROM normal and No pain with cervical ROM Thoracic/Lumbar Spine: thoracic and lumbar spine normal to inspection Skin General: no rashes or lesions noted, No jaundice and No petechiae Neuro General: alert, oriented x3, gait normal and no focal motor deficits Speech: speech normal Extrem General: full ROM, no clubbing, cyanosis or edema, no pedal edema and no calf tenderness Psych Appearance: well kempt Mental Status: mental status grossly normal Attitude: cooperative Thought Content: normal and suicidality Judgment: judgment good Course Course Course Narrative: The patient was treated symptomatically for his vertigo and his migraines with IV fluids, Valium, meclizine, Compazine, Toradol, and Imitrex. He did report feeling better after administration of these medications. He has worked up with laboratory studies, which were unremarkable. I did not feel that CT imaging of the brain was indicated, as the patient had vertigo that's centered most consistent with a peripheral source, and this was something that he had had many times before. Additionally, his headache was consistent with his usual migraines, and I did not feel that imaging was indicated for this either. We've discussed home management of the symptoms, as well as the usual indications for return. Orders Ordered: Discontinued Medications Diazepam (Valium) 2 mg IV NOW ONE Stop: 03/20/19 14:31 Last Admin: 03/20/19 14:53 Dose: 2 mg Documented by: MAXWELL Sodium Chloride (Normal Saline 0.9%) 1,000 mls @ 1,000 mls/hr IV BOLUS ONE Stop: 03/20/19 17:24 Last Infusion: 03/20/19 17:34 Dose: 0 mls/hr Documented by: Admin: 03/20/19 16:35 Dose: 1,000 mls/hr Documented by: MAXWELL Ketorolac Tromethamine (Toradol) 30 mg IV NOW ONE Stop: 03/20/19 16:26 Last Admin: 03/20/19 16:34 Dose: 30 mg Documented by: MAXWELL Meclizine HCl (Antivert) 50 mg PO NOW ONE Stop: 03/20/19 14:31 Last Admin: 03/20/19 14:53 Dose: 50 mg Documented by: MAXWELL Prochlorperazine (Compazine) 10 mg IV NOW ONE Stop: 03/20/19 16:26 Last Admin: 03/20/19 16:35 Dose: 10 mg Documented by: MAXWELL Sumatriptan Succinate (Imitrex) 25 mg PO Q2H PRN PRN Reason: Headache Last Admin: 03/20/19 15:14 Dose: 25 mg Documented by: MAXWELL Vital Signs Vital signs: Vital Signs - 8 hr 03/20/19 12:20 03/20/19 14:16 Temperature 98.4 F Pulse Rate 90 66 Respiratory Rate 18 20 Blood Pressure 181/114 H Blood Pressure [Left Arm] 153/89 H Pulse Oximetry 98 MDM - Dizziness Medical Records Attestation: I reviewed the patient's medical records. Lab Data Attestation: I reviewed the patient's lab results. Result diagrams: 03/20/19 13:27 03/20/19 13:27 Labs: Lab Results 03/20/19 03/20/19 03/20/19 Range/Units 13:27 13:27 13:27 WBC 6.6 (4.5-11.0) X10^3/uL RBC 4.75 (4.5-5.9) X10^6/uL Hgb 14.2 (13.5-17.5) g/dL Hct 41.2 (41-53) % MCV 86.8 (80-100) fL MCH 29.9 (26-34) PG MCHC 34.5 (30-36) % RDW 13.6 (11.6-14.8) % Plt Count 228 (150-400) X10^3/uL Neut % (Auto) 55.4 (50-75) % Lymph % (Auto) 34.6 (25-40) % [place] % (Auto) 8.7 (3-14) % Eos % (Auto) 0.8 L (2-4) % Baso % (Auto) 0.5 (0-2) % Neut # (Auto) 3600 (4548-4761) /uL Lymph # (Auto) 2300 (9389-3767) /uL [place] # (Auto) 600 (0-900) /uL Eos # (Auto) 100 (0-450) /uL Baso # (Auto) 0 (0-100) /uL PT 11.1 (10.1-12.7) SECONDS INR 1.0 (0.9-1.3) APTT 29 (26.4-36.2) SECONDS Sodium 138 (137-145) mmol/L Potassium 4.0 (3.4-5.1) mmol/L Chloride 104 (98-107) mmol/L Carbon Dioxide 27 (22-32) mmol/L BUN 17 (9-20) mg/dL Creatinine 0.70 (0.66-1.25) mg/dL Estimated GFR > 60.0 (>60) mL/min BUN/Creatinine Ratio 24.3 H (6-22) Glucose 99 (80-110) mg/dL Calcium 8.9 (8.4-10.2) mg/dL Magnesium 2.2 (1.6-2.3) mg/dL Total Bilirubin 0.6 (0.2-1.3) mg/dL AST 30 (17-59) IU/L ALT 28 (<50) IU/L Alkaline Phosphatase 69 (38-126) U/L Total Creatine Kinase 110 (55-170) U/L CK-MB (CK-2) 1.94 (<2.37) ng/mL CK-MB (CK-2) Rel Index 1.8 (1.5-5.0) % Troponin I < 0.012 (0.01-0.034) ng/mL Total Protein 6.6 (6.3-8.2) g/dL Albumin 3.9 (3.5-5.0) g/dL Globulin 2.7 (1.7-4.1) g/dL Albumin/Globulin Ratio 1.4 (1.0-2.8) Lipase 40 (23-300) U/L Discharge Plan Departure Patient Disposition: Home Clinical Impression: Benign paroxysmal positional vertigo Qualifiers: Laterality: unspecified laterality Qualified Code(s): H81.10 - Benign paroxysmal vertigo, unspecified ear Migraine Qualifiers: Migraine type: without aura Status migrainosus presence: without status migrainosus Intractability: not intractable Qualified Code(s): G43.009 - Migraine without aura, not intractable, without status migrainosus Discharge Date/Time: 03/20/19 17:45 Instructions: DI for Migraine, DI for Vertigo Prescriptions: No Action meloxicam 15 mg Tablet 7.5 - 15 mg PO DAILY RF: 0 sumatriptan succinate 25 mg tablet 25 mg PO PRN PRN (Reason: Migraine Headache) RF: 0 lisinopril 20 mg tablet 20 mg PO DAILY RF: 0 Referrals: Carina Hester DO [Primary Care Provider] -
[2019-03-20] MEDS: diazePAM 10 MG/2 ML SYRINGE 2 MG IV (14:53)
[2019-03-20] MEDS: MECLIZINE HCL 12.5 MG TABLET 50 MG PO (14:53)
[2019-03-20] MEDS: SUMAtriptan 25 MG TABLET PO (15:14)
[2019-03-20] MEDS: KETOROLAC 60 MG/2 ML VIAL 30 MG IV (16:34)
[2019-03-20] MEDS: SODIUM CHLORIDE 0.9% 1,000 ML 1000 ML IV (16:35)
[2019-03-20] MEDS: PROCHLORPERAZINE 10 MG/2 ML VIAL IV (16:35)
[2019-03-20 17:41] VITALS: BP 154/91; PULSE 70; RESP 14; O2SAT 96
== END 2019-03-20 17:45 | disposition home or self-care (01) ==
PROVIDERS: Nurse Practitioner Family; Emergency Provider Emergency Medicine; PCP Family Medicine
DX: H81.10 Benign paroxysmal vertigo, unspecified ear (principal); G43.009 Migraine without aura, not intractable, without status migrainosus
CPT/HCPCS: 36415; 80053; 82550; 82553; 83690; 83735; 84484; 85025; 85610; 85730; 93005; 96361; 96374; 96375; 99284; J0780; J1885; J3360

== ENCOUNTER → 2019-05-07 14:11 | Outpatient (CLI) | payer OTHER, MEDICAID, SELFPAY ==
[2019-05-07 14:39] LABS: Bacteria Urine None Seen
[2019-05-07 14:59] LABS: Appearance Urine UA CLEAR; Bilirubin Urine UA NEGATIVE (NEGATIVE); Color Urine UA YELLOW; Glucose Urine UA NEGATIVE (Negative); Ketones Urine UA TRACE (NEGATIVE); Leukocyte Esterase Urine UA NEGATIVE (NEGATIVE); Nitrite Urine UA NEGATIVE (Negative); Occult Blood Urine UA NEGATIVE (Negative); Protein Urine UA NEGATIVE (Negative); Specific Gravity Urine UA 1.025 (1.000-1.035); Urobilinogen Urine UA 0.2 E.U./dL (0.2)
[2019-05-07 15:09] LABS: Add Manual Diff / Slide Review NO; Basophils Absolute Auto 0 /uL (0-100); Basophils Percent Auto 0.4 % (0-2); Eosinophils Absolute Auto 100 /uL (0-450); Eosinophils Percent Auto 1.7 % (2-4); Hemoglobin 15.2 g/dL (13.5-17.5); Lymphocytes Absolute Auto 2700 /uL (1100-4500); Mean Corpuscular HGB Conc 33.8 % (30-36); Mean Corpuscular Hemoglobin 29.6 PG (26-34); Mean Corpuscular Volume 87.6 fL (80-100); Monocytes Absolute Auto 700 /uL (0-900); Monocytes Percent Auto 8.6 % (3-14); Neutrophils Absolute Auto 4700 /uL (1500-7000); Neutrophils Percent Auto 56.3 % (50-75); Platelet Count 261 X10^3/uL (150-400); Red Blood Cell Count 5.13 X10^6/uL (4.5-5.9); White Blood Cell Count 8.3 X10^3/uL (4.5-11.0)
[2019-05-07 15:16] LABS: Hyaline Casts Urine 1-5/LPF; Mucus Urine 1+ (Negative); RBC Urine 1-5/HPF (0-5/HPF); Squamous Epithelial Cell Urine 0-1 /HPF (0-5/HPF); WBC Urine 1-5/HPF (0-5/HPF)
[2019-05-07 16:54] LABS: BUN Creatinine Ratio 33.8 (6-22); Blood Urea Nitrogen 27 mg/dL (9-20); Calcium 10.6 mg/dL (8.4-10.2); Carbon Dioxide 30 mmol/L (22-32); Chloride 104 mmol/L (98-107); Estimated Glomerular Filt Rate > 60.0 mL/min (>60); Glucose 90 mg/dL (80-110); HEMOLYSIS < 15 (0-50); Sodium 141 mmol/L (137-145)
== END ==
PROVIDERS: PCP Family Medicine; Referring Provider Family Medicine; Visit Provider Orthopaedic Surgery
DX: Z01.818 Encounter for other preprocedural examination (principal); M48.062 Spinal stenosis, lumbar region with neurogenic claudication
CPT/HCPCS: 36415; 80048; 81001; 85025

== ENCOUNTER 2019-06-04 13:00 | Outpatient (RCR) | payer OTHER, MEDICAID, SELFPAY ==
--- NOTE | 2019-03-14 19:11 | PT.OIE ---
Current Diagnoses Stiffness of right shoulder, not elsewhere classified (03/14/19) Abnormal posture (03/14/19) Weakness (03/14/19) Strain of muscle(s) and tendon(s) of the rotator cuff of right shoulder, subsequent encounter (03/14/19) Past Medical History (Last Updated 11/08/18 @ 11:34 by Sandy Medina RN) Arthritis (Acute) HTN (hypertension) (Acute) Low back pain (Acute) Migraines (Acute) Numbness and tingling (Acute) Sciatica (Acute) Past Surgical History (Last Updated 11/08/18 @ 11:34 by Sandy Medina RN) Hx of tonsillectomy (Acute) Hx of umbilical hernia repair (Acute 06/16/17) S/P excision of ganglion cyst (Acute) Visit Care Team Role Provider Type Carina Hester DO Primary Care Provider Non-Staff Specialty: Family Practice Address: [address] [place] [address], [id number] Email: Bruno Solitario PA-C Attending Provider Non-Staff Specialty: Medical Address: [address] [place] [address], [id number] Phone: Email: Physical Therapy Initial Evaluation PT-OP-A Visit Information Start: 03/14/19 08:13 Freq: Status: Active Protocol: Document 03/14/19 16:03 MT (Rec: 03/14/19 18:08 MT [id number]) Out-Patient Physical Therapy Visit Information Visit Information Visit Type Treatment Note Visit Start Time 16:03 Visit Stop Time 17:04 Total Visit Minutes 61 Visit Number 1 Number of SHORT PIECE HANDLER Visits 0 PT-OP-B Current Condition Start: 03/14/19 08:13 Freq: Status: Active Protocol: Document 03/14/19 16:03 MT (Rec: 03/14/19 18:08 MT [id number]) Current Condition History of Current Condition Onset Date 01/26/19 History of Current Condition Re: Back - Pt saw his D.O last week and the MRI from his midback and thoracic spine had come back and she did a trigger point treatment. He had injections of lidocaine in about 7-8 places. He has had some relief more from that, but is in a lot of pain. Saw Dr. Hawk to discuss surgery , but noel that surgery wasnt indicated. Referred to Dr. Estrella to o injections into the spine and trial for 2 procedures before continuing further. Re: [place]oulder - Pt reports that he is able to do a lot more things in the past couple weeks like comb his hair. Pt remarks that he has been doing his exercises that he was given during the pre-surgery appt. Pt does not currently use a sling and he was cleared for sleeping without his sling. He still uses the sling for long duration out in public and at the gym and when he's walking his dog, but does not use his sling at home. He went to his ortho last week. Pt reports popping , but not always painful. Pt reports that he has been carrying up to 3 lb weight, and told the doctor that. During eval, pt was able to take of his sweatshirt and achieved quite a bit of flexion with this motion. Pt has to get into bed on L side in order to be able to lower self into bed without using R UE. Treatment Goals Patient/Caregiver Goals get back the ROM and strength in his arm PT-OP-C Subjective Start: 03/14/19 08:13 Freq: Status: Active Protocol: Document 03/14/19 16:03 MT (Rec: 03/14/19 18:08 MT [id number]) Patient Questionnaires Quick Dash- Upper Extremity Quick Dash UE Score 43.18/100 Quick Dash UE Impairment 40 to 59% Impaired (Score 40- 59) OP-PT Pain Assessment Location R shoulder Intensity 2 Scale Used up to 9 with movement Description Aching Frequency Constant Pain Aggravating Factors ADL's,Lifting Pain Alleviating Factors Cold Other Pain Alleviating Factors octavia Ash PT-OP-J Posture/Palpation/Skin Start: 03/14/19 08:13 Freq: Status: Active Protocol: Document 03/14/19 16:03 MT (Rec: 03/14/19 18:08 MT [id number]) Posture Evaluation Comments Posture Comments Sitting Posture: has rounded shoulders in sitting, his R shoulder is slightly more elevated than his L, his ribcage is anteriorly tilted in proportion to his pelvis Skin Assessment Incisional Assessment Incision Appearance/Comments Pt has 5 small 1/2 inch-sized incisions. They are completely closed and healed and have very little discoloration. there is no redness or notable swelling to the shoulder area. PT-OP-K Range of Motion Start: 03/14/19 08:13 Freq: Status: Active Protocol: Document 03/14/19 16:03 MT (Rec: 03/14/19 18:08 MT [id number]) Shoulder Goniometric Range of Motion Shoulder Right Passive Shoulder ROM WFL No Testing Position Supine Flexion 45 Abduction 37 External Rotation at 0 degrees Abduction 45 Internal Rotation 0 Left Active Shoulder ROM WFL Yes Testing Position Standing Flexion 168 Extension 65 Abduction 160 External Rotation at 0 degrees Abduction 65 Internal Rotation Behind Back (text) T6 Right Active Shoulder ROM WFL No Testing Position Standing Flexion 39 Extension 51 Abduction 40 External Rotation at 0 degrees Abduction 35 Internal Rotation Behind Back (text) L2 Shoulder ROM Limitations Shoulder ROM Limitations Pain Comments IR PROM measured in scaption plane in supine PT-OP-Q Treatments Start: 03/14/19 08:13 Freq: Status: Active Protocol: Document 03/14/19 16:03 MT (Rec: 03/14/19 18:08 MT [id number]) Therapeutic Exercises Standing Exercises tbar PROM Standing Exercise Name flexion, abd, ER Side right Equipment Used towel with ER for between elbow and body ER Standing Exercise Name isometric against wall Side right Resistance within pt tolerance PT-OP-R Modalities Start: 03/14/19 08:13 Freq: Status: Active Protocol: Document 03/14/19 16:03 MT (Rec: 03/14/19 18:08 MT [id number]) Electric Stimulation Electric Stimulation Interferential Current (IFC) Body Location R shoulder Duration (Minutes) 15 Patient Position Prone Combined With Heat/Cold Cold Pack Comments cold apck to lumbar and thoracic and R shoulder PT-OP-T Assessment and Plan Start: 03/14/19 08:13 Freq: Status: Active Protocol: Document 03/14/19 16:03 MT (Rec: 03/14/19 18:08 MT [id number]) Physical Therapy Assessment Rehab Potential Rehabilitation Potential Good Evaluation Complexity Number of Personal Factors/Comorbidities 1-2 Number of Body Systems Impaired 4 or More Clinical Presentation at Evaluation Evolving Impairments Impairments Activity Tolerance,Balance, Functional Activities, Functional Mobility,Pain, Posture,ROM,Soft Tissue Mobility,Strength,Transfers Goals ROM Short Term Goal (STG) pt will be able to demonstrate proper sitting and standing posture and apply corrections without cueing from PT in order to increase postural stability STG Duration 04/14/19 Care Home Goal (LTG) pt will increase ROM to match that of the left shoulder in order to improve pt ability to perform reaching ADL's LTG Duration 05/15/19 strength Short Term Goal (STG) pt will be compliant and indepndent with HEP STG Duration 04/14/19 Database Programmer Analyst Goal (LTG) pt will increase his B shoudler strength to at least 4/5 in order to increase pt participation in ADL's and functional mobility LTG Duration 05/15/19 QuickDASH Care Home Goal (LTG) pt will improve QuickDASH score to 19/100 in order to demonstrate significantly improved ability to carry out ADL's LTG Duration 05/15/19 pain Short Term Goal (STG) pt will be able to carry out ADL's and bed mobility with no more than 2 point increase in VAS STG Duration 04/14/19 Care Home Goal (LTG) pt will be able to return to lifting and being able to work out without increase in pain greater than 2 on the VAS in order to increase pt participation in daily activities LTG Duration 05/15/19 Assessment Summary Assessment Pt presents to PT s/p R RCR 7 weeks ago. He is in Phase 2 of his protocol, which focuses on controlling pain, gentle stretching, and improving ROM. Per pt's protocol, he is able to do modalities, scapular and GH mobs, PROM ( with caution in flexion), scapular strenthening, isometric ER/IR, bicep/tricep strength, and UBE. Pt is severely limited in his R shoulder AROM/PROm, especially his ER, aB, and flexion. Per pt's protocol he is limited to the strentghening that he is allowed to do at this point . He will benefit from skilled PT in order to increase his ROM and develop pt R UE strength in order to allow pt to return to his daily activities. Educated pt through gentle ROM exercises and isometric ER strengthening as part of HEP. Physical Therapy Plan Frequency and Duration Frequency of Treatment 2-3x /wk Duration of Treatment 2 months Plan of Care Start Date 03/14/19 Plan of Care End Date 05/15/19 Therapeutic Interventions Therapeutic Interventions Aquatic Therapy,Coordination Training,Home Exercise Program ,Joint Mobilizations,Manual Therapy,Neuromuscular Re- education,Patient/Caregiver Education,Self-Care/Home Management,Sensory Integration ,Soft Tissue Mobilization, Taping,Therapeutic Activities, Therapeutic Exercises Modalities Cold Pack/Ice Massage,Electric Stimulation,Hot Packs, Infrared Therapy,Iontophoresis ,Ultrasound Next Visit Focus/Plan Next Note Type Treatment Note Next Visit Plan continue to progress HEP, posture education/training, manual threapy, PROM, UE erg
--- NOTE | 2019-03-26 16:49 | PT.OTN ---
Current Diagnoses Stiffness of right shoulder, not elsewhere classified (03/26/19) Abnormal posture (03/26/19) Weakness (03/26/19) Strain of muscle(s) and tendon(s) of the rotator cuff of right shoulder, subsequent encounter (03/26/19) Physical Therapy Treatment Note PT-OP-A Visit Information Start: 03/14/19 08:13 Freq: Status: Active Protocol: Document 03/26/19 16:03 [facility] (Rec: 03/26/19 16:49 [facility] [id number]) Out-Patient Physical Therapy Visit Information Visit Information Visit Type Treatment Note Visit Start Time 16:02 Visit Stop Time 16:56 Total Visit Minutes 54 Visit Number 2 Number of NETTING WEAVER Visits 0 PT-OP-B Current Condition Start: 03/14/19 08:13 Freq: Status: Active Protocol: Document 03/14/19 16:03 MT (Rec: 03/14/19 18:08 MT [id number]) Current Condition History of Current Condition Onset Date 01/26/19 History of Current Condition Re: Back - Pt saw his D.O last week and the MRI from his midback and thoracic spine had come back and she did a trigger point treatment. He had injections of lidocaine in about 7-8 places. He has had some relief more from that, but is in a lot of pain. Saw Dr. Hawk to discuss surgery , but noel that surgery wasnt indicated. Referred to Dr. Estrella to o injections into the spine and trial for 2 procedures before continuing further. Re: [place]oulder - Pt reports that he is able to do a lot more things in the past couple weeks like comb his hair. Pt remarks that he has been doing his exercises that he was given during the pre-surgery appt. Pt does not currently use a sling and he was cleared for sleeping without his sling. He still uses the sling for long duration out in public and at the gym and when he's walking his dog, but does not use his sling at home. He went to his ortho last week. Pt reports popping , but not always painful. Pt reports that he has been carrying up to 3 lb weight, and told the doctor that. During eval, pt was able to take of his sweatshirt and achieved quite a bit of flexion with this motion. Pt has to get into bed on L side in order to be able to lower self into bed without using R UE. Treatment Goals Patient/Caregiver Goals get back the ROM and strength in his arm PT-OP-C Subjective Start: 03/14/19 08:13 Freq: Status: Active Protocol: Document 03/26/19 16:03 [facility] (Rec: 03/26/19 16:49 [facility] [id number]) OP-PT Subjective Patient Comments Patient Comments Pt reports he had to go to the ER for dizziness but is doing better after seeing DO last PT-OP-J Posture/Palpation/Skin Start: 03/14/19 08:13 Freq: Status: Active Protocol: Document 03/14/19 16:03 MT (Rec: 03/14/19 18:08 MT [id number]) Posture Evaluation Comments Posture Comments Sitting Posture: has rounded shoulders in sitting, his R shoulder is slightly more elevated than his L, his ribcage is anteriorly tilted in proportion to his pelvis Skin Assessment Incisional Assessment Incision Appearance/Comments Pt has 5 small 1/2 inch-sized incisions. They are completely closed and healed and have very little discoloration. there is no redness or notable swelling to the shoulder area. PT-OP-K Range of Motion Start: 03/14/19 08:13 Freq: Status: Active Protocol: Document 03/14/19 16:03 MT (Rec: 03/14/19 18:08 MT [id number]) Shoulder Goniometric Range of Motion Shoulder Right Passive Shoulder ROM WFL No Testing Position Supine Flexion 45 Abduction 37 External Rotation at 0 degrees Abduction 45 Internal Rotation 0 Left Active Shoulder ROM WFL Yes Testing Position Standing Flexion 168 Extension 65 Abduction 160 External Rotation at 0 degrees Abduction 65 Internal Rotation Behind Back (text) T6 Right Active Shoulder ROM WFL No Testing Position Standing Flexion 39 Extension 51 Abduction 40 External Rotation at 0 degrees Abduction 35 Internal Rotation Behind Back (text) L2 Shoulder ROM Limitations Shoulder ROM Limitations Pain Comments IR PROM measured in scaption plane in supine PT-OP-Q Treatments Start: 03/14/19 08:13 Freq: Status: Active Protocol: Document 03/26/19 16:03 [facility] (Rec: 03/26/19 16:49 [facility] [id number]) Cardio Equipment Upper Body Ergometer (UBE) Duration (Minutes) 3 RPM 75 Seat Position 13 Height 3 Therapeutic Exercises Standing Exercises tbar PROM Standing Exercise Name flexion, abd, ER Side right Equipment Used towel with ER for between elbow and body ER Standing Exercise Name isometric against wall Side right Resistance within pt tolerance 2 Standing Exercise Name walk away R shoulder Reps/Minutes [id number] 1 Standing Exercise Name pully Side bilateral Reps/Minutes flex & abd 15 ea Manual Therapy Treatment Soft Tissue Mobilization 5 Body Location pec & biceps R Mobilization Type Rolling,Strumming Intensity/Depth Moderate Body Position Hooklying Joint Mobilizations 5 Joint R GH Direction distraction, inf &post glides Grade II PT-OP-R Modalities Start: 03/14/19 08:13 Freq: Status: Active Protocol: Document 03/26/19 16:03 [facility] (Rec: 03/26/19 16:49 [facility] [id number]) Electric Stimulation Electric Stimulation Interferential Current (IFC) Body Location R shoulder Duration (Minutes) 15 Patient Position Prone Combined With Heat/Cold Cold Pack Comments cold apck to lumbar and thoracic and R shoulder PT-OP-T Assessment and Plan Start: 03/14/19 08:13 Freq: Status: Active Protocol: Document 03/26/19 16:03 [facility] (Rec: 03/26/19 16:49 [facility] [id number]) Physical Therapy Assessment Goals ROM Short Term Goal (STG) pt will be able to demonstrate proper sitting and standing posture and apply corrections without cueing from PT in order to increase postural stability STG Duration 04/14/19 [facility] Goal (LTG) pt will increase ROM to match that of the left shoulder in order to improve pt ability to perform reaching ADL's LTG Duration 05/15/19 strength Short Term Goal (STG) pt will be compliant and indepndent with HEP STG Duration 04/14/19 Biodiesel Engineering Manager Goal (LTG) pt will increase his B shoudler strength to at least 4/5 in order to increase pt participation in ADL's and functional mobility LTG Duration 05/15/19 QuickDASH Biodiesel Engineering Manager Goal (LTG) pt will improve QuickDASH score to 19/100 in order to demonstrate significantly improved ability to carry out ADL's LTG Duration 05/15/19 pain Short Term Goal (STG) pt will be able to carry out ADL's and bed mobility with no more than 2 point increase in VAS STG Duration 04/14/19 [facility] Goal (LTG) pt will be able to return to lifting and being able to work out without increase in pain greater than 2 on the VAS in order to increase pt participation in daily activities LTG Duration 05/15/19 Assessment Summary Assessment Pt able to tolerate improved PROM of R shoulder with about 75% of rotatations and about 60% of flex and abd ROM. He did very well with achieving ROM with pully and was encouraged to get one for home , Physical Therapy Plan Frequency and Duration Frequency of Treatment 2-3x /wk Duration of Treatment 2 months Plan of Care Start Date 03/14/19 Plan of Care End Date 05/15/19 Therapeutic Interventions Therapeutic Interventions Aquatic Therapy,Coordination Training,Home Exercise Program ,Joint Mobilizations,Manual Therapy,Neuromuscular Re- education,Patient/Caregiver Education,Self-Care/Home Management,Sensory Integration ,Soft Tissue Mobilization, Taping,Therapeutic Activities, Therapeutic Exercises Modalities Cold Pack/Ice Massage,Electric Stimulation,Hot Packs, Infrared Therapy,Iontophoresis ,Ultrasound Next Visit Focus/Plan Next Note Type Treatment Note Next Visit Plan continue to progress HEP, posture education/training, manual threapy, PROM, UE erg
--- NOTE | 2019-03-27 16:51 | PT.OTN ---
Current Diagnoses Stiffness of right shoulder, not elsewhere classified (03/27/19) Abnormal posture (03/27/19) Weakness (03/27/19) Strain of muscle(s) and tendon(s) of the rotator cuff of right shoulder, subsequent encounter (03/27/19) Physical Therapy Treatment Note PT-OP-A Visit Information Start: 03/14/19 08:13 Freq: Status: Active Protocol: Document 03/27/19 15:27 [facility] (Rec: 03/27/19 16:51 [facility] [id number]) Out-Patient Physical Therapy Visit Information Visit Information Visit Type Treatment Note Visit Start Time 15:22 Visit Stop Time 16:15 Total Visit Minutes 53 Visit Number 3 Number of FLARE MAN Visits 0 PT-OP-B Current Condition Start: 03/14/19 08:13 Freq: Status: Active Protocol: Document 03/14/19 16:03 MT (Rec: 03/14/19 18:08 MT [id number]) Current Condition History of Current Condition Onset Date 01/26/19 History of Current Condition Re: Back - Pt saw his D.O last week and the MRI from his midback and thoracic spine had come back and she did a trigger point treatment. He had injections of lidocaine in about 7-8 places. He has had some relief more from that, but is in a lot of pain. Saw Dr. Hawk to discuss surgery , but noel that surgery wasnt indicated. Referred to Dr. Estrella to o injections into the spine and trial for 2 procedures before continuing further. Re: [place]oulder - Pt reports that he is able to do a lot more things in the past couple weeks like comb his hair. Pt remarks that he has been doing his exercises that he was given during the pre-surgery appt. Pt does not currently use a sling and he was cleared for sleeping without his sling. He still uses the sling for long duration out in public and at the gym and when he's walking his dog, but does not use his sling at home. He went to his ortho last week. Pt reports popping , but not always painful. Pt reports that he has been carrying up to 3 lb weight, and told the doctor that. During eval, pt was able to take of his sweatshirt and achieved quite a bit of flexion with this motion. Pt has to get into bed on L side in order to be able to lower self into bed without using R UE. Treatment Goals Patient/Caregiver Goals get back the ROM and strength in his arm PT-OP-C Subjective Start: 03/14/19 08:13 Freq: Status: Active Protocol: Document 03/27/19 15:27 [facility] (Rec: 03/27/19 16:51 [facility] [id number]) OP-PT Subjective Patient Comments Patient Comments Pt reports he was a little sore after last session. PT-OP-J Posture/Palpation/Skin Start: 03/14/19 08:13 Freq: Status: Active Protocol: Document 03/14/19 16:03 MT (Rec: 03/14/19 18:08 MT [id number]) Posture Evaluation Comments Posture Comments Sitting Posture: has rounded shoulders in sitting, his R shoulder is slightly more elevated than his L, his ribcage is anteriorly tilted in proportion to his pelvis Skin Assessment Incisional Assessment Incision Appearance/Comments Pt has 5 small 1/2 inch-sized incisions. They are completely closed and healed and have very little discoloration. there is no redness or notable swelling to the shoulder area. PT-OP-K Range of Motion Start: 03/14/19 08:13 Freq: Status: Active Protocol: Document 03/14/19 16:03 MT (Rec: 03/14/19 18:08 MT [id number]) Shoulder Goniometric Range of Motion Shoulder Right Passive Shoulder ROM WFL No Testing Position Supine Flexion 45 Abduction 37 External Rotation at 0 degrees Abduction 45 Internal Rotation 0 Left Active Shoulder ROM WFL Yes Testing Position Standing Flexion 168 Extension 65 Abduction 160 External Rotation at 0 degrees Abduction 65 Internal Rotation Behind Back (text) T6 Right Active Shoulder ROM WFL No Testing Position Standing Flexion 39 Extension 51 Abduction 40 External Rotation at 0 degrees Abduction 35 Internal Rotation Behind Back (text) L2 Shoulder ROM Limitations Shoulder ROM Limitations Pain Comments IR PROM measured in scaption plane in supine PT-OP-Q Treatments Start: 03/14/19 08:13 Freq: Status: Active Protocol: Document 03/27/19 15:27 [facility] (Rec: 03/27/19 16:51 [facility] [id number]) Cardio Equipment Upper Body Ergometer (UBE) Duration (Minutes) 4 RPM 75 Seat Position 13 Height 3 Other fwd/back Therapeutic Exercises Standing Exercises 3 Standing Exercise Name isometric IR Side right Reps/Minutes 5sec x5 1 Standing Exercise Name pully Side bilateral Reps/Minutes flex & abd, scaption & IR 15 ea Manual Therapy Treatment Soft Tissue Mobilization 5 Body Location pec & biceps & UT R Mobilization Type Rolling,Strumming Intensity/Depth Moderate Body Position Hooklying Joint Mobilizations 5 Joint R GH Direction distraction, inf &post glides Grade II PT-OP-R Modalities Start: 03/14/19 08:13 Freq: Status: Active Protocol: Document 03/27/19 15:27 [facility] (Rec: 03/27/19 16:51 [facility] [id number]) Electric Stimulation Electric Stimulation Interferential Current (IFC) Body Location R shoulder Duration (Minutes) 15 Patient Position Prone Combined With Heat/Cold Cold Pack Comments cold apck to lumbar and thoracic and R shoulder PT-OP-T Assessment and Plan Start: 03/14/19 08:13 Freq: Status: Active Protocol: Document 03/27/19 15:27 [facility] (Rec: 03/27/19 16:51 [facility] [id number]) Physical Therapy Assessment Goals ROM Short Term Goal (STG) pt will be able to demonstrate proper sitting and standing posture and apply corrections without cueing from PT in order to increase postural stability STG Duration 04/14/19 Longitudinal Float Operator Goal (LTG) pt will increase ROM to match that of the left shoulder in order to improve pt ability to perform reaching ADL's LTG Duration 05/15/19 strength Short Term Goal (STG) pt will be compliant and indepndent with HEP STG Duration 04/14/19 Longitudinal Float Operator Goal (LTG) pt will increase his B shoudler strength to at least 4/5 in order to increase pt participation in ADL's and functional mobility LTG Duration 05/15/19 QuickDASH Longitudinal Float Operator Goal (LTG) pt will improve QuickDASH score to 19/100 in order to demonstrate significantly improved ability to carry out ADL's LTG Duration 05/15/19 pain Short Term Goal (STG) pt will be able to carry out ADL's and bed mobility with no more than 2 point increase in VAS STG Duration 04/14/19 Longitudinal Float Operator Goal (LTG) pt will be able to return to lifting and being able to work out without increase in pain greater than 2 on the VAS in order to increase pt participation in daily activities LTG Duration 05/15/19 Assessment Summary Assessment Pt cont to progress with AAROM and PROM. He was able to tolerate inc time on UBE and IR isometrics. He improved with AAROM flex and scaption today signfiicantly. Physical Therapy Plan Frequency and Duration Frequency of Treatment 2-3x /wk Duration of Treatment 2 months Plan of Care Start Date 03/14/19 Plan of Care End Date 05/15/19 Next Visit Focus/Plan Next Note Type Treatment Note Next Visit Plan continue to progress HEP, posture education/training, manual threapy, PROM, UE erg
--- NOTE | 2019-03-29 18:14 | PT.OTN ---
Current Diagnoses Stiffness of right shoulder, not elsewhere classified (03/29/19) Abnormal posture (03/29/19) Weakness (03/29/19) Strain of muscle(s) and tendon(s) of the rotator cuff of right shoulder, subsequent encounter (03/29/19) Physical Therapy Treatment Note PT-OP-A Visit Information Start: 03/14/19 08:13 Freq: Status: Active Protocol: Document 03/29/19 15:25 [facility] (Rec: 03/29/19 18:13 [facility] [id number]) Out-Patient Physical Therapy Visit Information Visit Information Visit Type Treatment Note Visit Number 4 Number of LIQUIFIED NATURAL GAS SPECIALIST Visits 0 PT-OP-B Current Condition Start: 03/14/19 08:13 Freq: Status: Active Protocol: Document 03/14/19 16:03 MT (Rec: 03/14/19 18:08 MT [id number]) Current Condition History of Current Condition Onset Date 01/26/19 History of Current Condition Re: Back - Pt saw his D.O last week and the MRI from his midback and thoracic spine had come back and she did a trigger point treatment. He had injections of lidocaine in about 7-8 places. He has had some relief more from that, but is in a lot of pain. Saw Dr. Hawk to discuss surgery , but noel that surgery wasnt indicated. Referred to Dr. Estrella to o injections into the spine and trial for 2 procedures before continuing further. Re: [place]oulder - Pt reports that he is able to do a lot more things in the past couple weeks like comb his hair. Pt remarks that he has been doing his exercises that he was given during the pre-surgery appt. Pt does not currently use a sling and he was cleared for sleeping without his sling. He still uses the sling for long duration out in public and at the gym and when he's walking his dog, but does not use his sling at home. He went to his ortho last week. Pt reports popping , but not always painful. Pt reports that he has been carrying up to 3 lb weight, and told the doctor that. During eval, pt was able to take of his sweatshirt and achieved quite a bit of flexion with this motion. Pt has to get into bed on L side in order to be able to lower self into bed without using R UE. Treatment Goals Patient/Caregiver Goals get back the ROM and strength in his arm PT-OP-C Subjective Start: 03/14/19 08:13 Freq: Status: Active Protocol: Document 03/29/19 15:25 [facility] (Rec: 03/29/19 18:13 [facility] [id number]) OP-PT Subjective Patient Comments Patient Comments Pt reports he feels like he is really improving Patient Reported Progress Improving PT-OP-J Posture/Palpation/Skin Start: 03/14/19 08:13 Freq: Status: Active Protocol: Document 03/14/19 16:03 MT (Rec: 03/14/19 18:08 MT [id number]) Posture Evaluation Comments Posture Comments Sitting Posture: has rounded shoulders in sitting, his R shoulder is slightly more elevated than his L, his ribcage is anteriorly tilted in proportion to his pelvis Skin Assessment Incisional Assessment Incision Appearance/Comments Pt has 5 small 1/2 inch-sized incisions. They are completely closed and healed and have very little discoloration. there is no redness or notable swelling to the shoulder area. PT-OP-K Range of Motion Start: 03/14/19 08:13 Freq: Status: Active Protocol: Document 03/14/19 16:03 MT (Rec: 03/14/19 18:08 MT [id number]) Shoulder Goniometric Range of Motion Shoulder Right Passive Shoulder ROM WFL No Testing Position Supine Flexion 45 Abduction 37 External Rotation at 0 degrees Abduction 45 Internal Rotation 0 Left Active Shoulder ROM WFL Yes Testing Position Standing Flexion 168 Extension 65 Abduction 160 External Rotation at 0 degrees Abduction 65 Internal Rotation Behind Back (text) T6 Right Active Shoulder ROM WFL No Testing Position Standing Flexion 39 Extension 51 Abduction 40 External Rotation at 0 degrees Abduction 35 Internal Rotation Behind Back (text) L2 Shoulder ROM Limitations Shoulder ROM Limitations Pain Comments IR PROM measured in scaption plane in supine PT-OP-Q Treatments Start: 03/14/19 08:13 Freq: Status: Active Protocol: Document 03/29/19 15:25 [facility] (Rec: 03/29/19 18:13 [facility] [id number]) Cardio Equipment Upper Body Ergometer (UBE) Duration (Minutes) 5 RPM 75 Seat Position 13 Height 3 Other fwd/back Therapeutic Exercises Prone Exercises tricep ext Side right Equipment Used 2# Reps/Minutes 15 Comments brachium supported by table 1 Prone Exercise Name extension Side right Reps/Minutes 20 Sidelying Exercises 1 Sidelying Exercise Name ER Side right Reps/Minutes 10 Comments towel between elbow Standing Exercises 2 Standing Exercise Name scap retract Side bilateral Equipment Used L1 Reps/Minutes 10x2 Manual Therapy Treatment Soft Tissue Mobilization 5 Body Location pec & biceps & UT R Mobilization Type Rolling,Strumming Intensity/Depth Moderate Body Position Hooklying Joint Mobilizations 5 Joint R GH Direction distraction, inf &post glides Grade II Manual Techniques ROM Type PROM into flex, abd & ER PT-OP-R Modalities Start: 03/14/19 08:13 Freq: Status: Active Protocol: Document 03/29/19 15:25 [facility] (Rec: 03/29/19 18:13 [facility] [id number]) Electric Stimulation Electric Stimulation Interferential Current (IFC) Body Location R shoulder Duration (Minutes) 15 Patient Position Prone Combined With Heat/Cold Cold Pack Comments cold apck to lumbar and thoracic and R shoulder PT-OP-T Assessment and Plan Start: 03/14/19 08:13 Freq: Status: Active Protocol: Document 03/29/19 15:25 [facility] (Rec: 03/29/19 18:13 [facility] [id number]) Physical Therapy Assessment Goals ROM Short Term Goal (STG) pt will be able to demonstrate proper sitting and standing posture and apply corrections without cueing from PT in order to increase postural stability STG Duration 04/14/19 Applied Marine Physics Professor Goal (LTG) pt will increase ROM to match that of the left shoulder in order to improve pt ability to perform reaching ADL's LTG Duration 05/15/19 strength Short Term Goal (STG) pt will be compliant and indepndent with HEP STG Duration 04/14/19 Applied Marine Physics Professor Goal (LTG) pt will increase his B shoudler strength to at least 4/5 in order to increase pt participation in ADL's and functional mobility LTG Duration 05/15/19 QuickDASH Retirement Goal (LTG) pt will improve QuickDASH score to 19/100 in order to demonstrate significantly improved ability to carry out ADL's LTG Duration 05/15/19 pain Short Term Goal (STG) pt will be able to carry out ADL's and bed mobility with no more than 2 point increase in VAS STG Duration 04/14/19 Applied Marine Physics Professor Goal (LTG) pt will be able to return to lifting and being able to work out without increase in pain greater than 2 on the VAS in order to increase pt participation in daily activities LTG Duration 05/15/19 Assessment Summary Assessment Pt had full PROM 90/90 ER and improved abd to about 60% of full range and 80% of flex ROM . He cont to imrpvoe with tolerance to AROM and AAROM. Physical Therapy Plan Frequency and Duration Frequency of Treatment 2-3x /wk Duration of Treatment 2 months Plan of Care Start Date 03/14/19 Plan of Care End Date 05/15/19 Next Visit Focus/Plan Next Note Type Treatment Note Next Visit Plan work on active ROM, postural education, wall posture, joint mobs & manual as needed
--- NOTE | 2019-04-04 18:02 | PT.OTN ---
Current Diagnoses Stiffness of right shoulder, not elsewhere classified (04/04/19) Abnormal posture (04/04/19) Weakness (04/04/19) Strain of muscle(s) and tendon(s) of the rotator cuff of right shoulder, subsequent encounter (04/04/19) Physical Therapy Treatment Note PT-OP-A Visit Information Start: 03/14/19 08:13 Freq: Status: Active Protocol: Document 04/04/19 15:21 [facility] (Rec: 04/04/19 18:02 [facility] [id number]) Out-Patient Physical Therapy Visit Information Visit Information Visit Type Treatment Note Visit Start Time 15:15 Visit Stop Time 16:10 Total Visit Minutes 55 Visit Number 5 Number of LEASING PROFESSIONAL Visits 0 PT-OP-B Current Condition Start: 03/14/19 08:13 Freq: Status: Active Protocol: Document 03/14/19 16:03 MT (Rec: 03/14/19 18:08 MT [id number]) Current Condition History of Current Condition Onset Date 01/26/19 History of Current Condition Re: Back - Pt saw his D.O last week and the MRI from his midback and thoracic spine had come back and she did a trigger point treatment. He had injections of lidocaine in about 7-8 places. He has had some relief more from that, but is in a lot of pain. Saw Dr. Hawk to discuss surgery , but noel that surgery wasnt indicated. Referred to Dr. Estrella to o injections into the spine and trial for 2 procedures before continuing further. Re: SHoulder - Pt reports that he is able to do a lot more things in the past couple weeks like comb his hair. Pt remarks that he has been doing his exercises that he was given during the pre-surgery appt. Pt does not currently use a sling and he was cleared for sleeping without his sling. He still uses the sling for long duration out in public and at the gym and when he's walking his dog, but does not use his sling at home. He went to his ortho last week. Pt reports popping , but not always painful. Pt reports that he has been carrying up to 3 lb weight, and told the doctor that. During eval, pt was able to take of his sweatshirt and achieved quite a bit of flexion with this motion. Pt has to get into bed on L side in order to be able to lower self into bed without using R UE. Treatment Goals Patient/Caregiver Goals get back the ROM and strength in his arm PT-OP-C Subjective Start: 03/14/19 08:13 Freq: Status: Active Protocol: Document 04/04/19 15:21 [facility] (Rec: 04/04/19 18:02 [facility] [id number]) OP-PT Subjective Patient Comments Patient Comments Pt improving with ROM Patient Reported Progress Improving PT-OP-J Posture/Palpation/Skin Start: 03/14/19 08:13 Freq: Status: Active Protocol: Document 03/14/19 16:03 MT (Rec: 03/14/19 18:08 MT [id number]) Posture Evaluation Comments Posture Comments Sitting Posture: has rounded shoulders in sitting, his R shoulder is slightly more elevated than his L, his ribcage is anteriorly tilted in proportion to his pelvis Skin Assessment Incisional Assessment Incision Appearance/Comments Pt has 5 small 1/2 inch-sized incisions. They are completely closed and healed and have very little discoloration. there is no redness or notable swelling to the shoulder area. PT-OP-K Range of Motion Start: 03/14/19 08:13 Freq: Status: Active Protocol: Document 04/04/19 15:21 [facility] (Rec: 04/04/19 18:02 [facility] [id number]) Shoulder Goniometric Range of Motion Shoulder Right Passive Flexion 156 Abduction 148 External Rotation at 90 degrees 89 Abduction External Rotation at 0 degrees Abduction 60 Internal Rotation 48 Right Active Flexion 93 Extension 48 Abduction 121 External Rotation at 90 degrees 58 Abduction External Rotation at 0 degrees Abduction 52 Internal Rotation Behind Back (text) L2 Shoulder ROM Limitations Comments scaption: 131 PT-OP-Q Treatments Start: 03/14/19 08:13 Freq: Status: Active Protocol: Document 04/04/19 15:21 [facility] (Rec: 04/04/19 18:02 [facility] [id number]) Cardio Equipment Upper Body Ergometer (UBE) Duration (Minutes) 6 RPM 60 Seat Position 15 Height 4 Other fwd/back Therapeutic Exercises Supine Exercises UE movements Supine Exercise Name AAROM cane chest press Reps/Minutes 20 Manual Therapy Treatment Soft Tissue Mobilization 5 Body Location pec & biceps & UT R Mobilization Type Rolling,Strumming Intensity/Depth Moderate Body Position Hooklying 4 Body Location scar tissue Mobilization Type Rolling Joint Mobilizations 5 Joint R GH Direction distraction, inf &post glides Grade II PT-OP-R Modalities Start: 03/14/19 08:13 Freq: Status: Active Protocol: Document 04/04/19 15:21 [facility] (Rec: 04/04/19 18:02 [facility] [id number]) Electric Stimulation Electric Stimulation Interferential Current (IFC) Body Location R shoulder Duration (Minutes) 15 Patient Position Prone Combined With Heat/Cold Cold Pack Comments cold apck to lumbar and thoracic and R shoulder PT-OP-T Assessment and Plan Start: 03/14/19 08:13 Freq: Status: Active Protocol: Document 04/04/19 15:21 [facility] (Rec: 04/04/19 18:02 [facility] [id number]) Physical Therapy Assessment Goals ROM Short Term Goal (STG) pt will be able to demonstrate proper sitting and standing posture and apply corrections without cueing from PT in order to increase postural stability STG Duration 04/14/19 Brusher Warp Goal (LTG) pt will increase ROM to match that of the left shoulder in order to improve pt ability to perform reaching ADL's LTG Duration 05/15/19 strength Short Term Goal (STG) pt will be compliant and indepndent with HEP STG Duration 04/14/19 Halfway Goal (LTG) pt will increase his B shoudler strength to at least 4/5 in order to increase pt participation in ADL's and functional mobility LTG Duration 05/15/19 QuickDASH Brusher Warp Goal (LTG) pt will improve QuickDASH score to 19/100 in order to demonstrate significantly improved ability to carry out ADL's LTG Duration 05/15/19 pain Short Term Goal (STG) pt will be able to carry out ADL's and bed mobility with no more than 2 point increase in VAS STG Duration 04/14/19 Halfway Goal (LTG) pt will be able to return to lifting and being able to work out without increase in pain greater than 2 on the VAS in order to increase pt participation in daily activities LTG Duration 05/15/19 Assessment Summary Assessment Pt has made excellent progress with his PROM & AROM. He has greater functional ability at this time and continues to improve. In 2.5 weeks, at 12 weeks, plan will be to begin strengthening per protocol. Currently working on AROM and AAROM to regain full motion. Physical Therapy Plan Frequency and Duration Frequency of Treatment 2-3x /wk Duration of Treatment 2 months Plan of Care Start Date 03/14/19 Plan of Care End Date 05/15/19 Next Visit Focus/Plan Next Note Type Treatment Note Next Visit Plan joint mobs and progress range, work on AAROM
--- NOTE | 2019-04-12 09:48 | PT.OTN ---
Current Diagnoses Stiffness of right shoulder, not elsewhere classified (04/12/19) Abnormal posture (04/12/19) Weakness (04/12/19) Strain of muscle(s) and tendon(s) of the rotator cuff of right shoulder, subsequent encounter (04/12/19) Physical Therapy Treatment Note PT-OP-A Visit Information Start: 03/14/19 08:13 Freq: Status: Active Protocol: Document 04/12/19 09:00 [facility] (Rec: 04/12/19 09:48 [facility] [id number]) Out-Patient Physical Therapy Visit Information Visit Information Visit Type Treatment Note Visit Start Time 09:02 Visit Stop Time 09:57 Total Visit Minutes 55 Visit Number 6 Number of MOSAIC TILER Visits 0 PT-OP-B Current Condition Start: 03/14/19 08:13 Freq: Status: Active Protocol: Document 03/14/19 16:03 MT (Rec: 03/14/19 18:08 MT [id number]) Current Condition History of Current Condition Onset Date 01/26/19 History of Current Condition Re: Back - Pt saw his D.O last week and the MRI from his midback and thoracic spine had come back and she did a trigger point treatment. He had injections of lidocaine in about 7-8 places. He has had some relief more from that, but is in a lot of pain. Saw Dr. Hawk to discuss surgery , but noel that surgery wasnt indicated. Referred to Dr. Estrella to o injections into the spine and trial for 2 procedures before continuing further. Re: SHoulder - Pt reports that he is able to do a lot more things in the past couple weeks like comb his hair. Pt remarks that he has been doing his exercises that he was given during the pre-surgery appt. Pt does not currently use a sling and he was cleared for sleeping without his sling. He still uses the sling for long duration out in public and at the gym and when he's walking his dog, but does not use his sling at home. He went to his ortho last week. Pt reports popping , but not always painful. Pt reports that he has been carrying up to 3 lb weight, and told the doctor that. During eval, pt was able to take of his sweatshirt and achieved quite a bit of flexion with this motion. Pt has to get into bed on L side in order to be able to lower self into bed without using R UE. Treatment Goals Patient/Caregiver Goals get back the ROM and strength in his arm PT-OP-C Subjective Start: 03/14/19 08:13 Freq: Status: Active Protocol: Document 04/12/19 09:00 [facility] (Rec: 04/12/19 09:48 [facility] [id number]) OP-PT Subjective Patient Comments Patient Comments Pt reports his shoulder is doing well. Notes he did some shoveling yesterday but was careful. Pain that is present is ant. Patient Reported Progress Improving PT-OP-J Posture/Palpation/Skin Start: 03/14/19 08:13 Freq: Status: Active Protocol: Document 03/14/19 16:03 MT (Rec: 03/14/19 18:08 MT [id number]) Posture Evaluation Comments Posture Comments Sitting Posture: has rounded shoulders in sitting, his R shoulder is slightly more elevated than his L, his ribcage is anteriorly tilted in proportion to his pelvis Skin Assessment Incisional Assessment Incision Appearance/Comments Pt has 5 small 1/2 inch-sized incisions. They are completely closed and healed and have very little discoloration. there is no redness or notable swelling to the shoulder area. PT-OP-K Range of Motion Start: 03/14/19 08:13 Freq: Status: Active Protocol: Document 04/04/19 15:21 [facility] (Rec: 04/04/19 18:02 [facility] [id number]) Shoulder Goniometric Range of Motion Shoulder Right Passive Flexion 156 Abduction 148 External Rotation at 90 degrees 89 Abduction External Rotation at 0 degrees Abduction 60 Internal Rotation 48 Right Active Flexion 93 Extension 48 Abduction 121 External Rotation at 90 degrees 58 Abduction External Rotation at 0 degrees Abduction 52 Internal Rotation Behind Back (text) L2 Shoulder ROM Limitations Comments scaption: 131 PT-OP-Q Treatments Start: 03/14/19 08:13 Freq: Status: Active Protocol: Document 04/12/19 09:00 [facility] (Rec: 04/12/19 09:48 [facility] [id number]) Cardio Equipment Upper Body Ergometer (UBE) Duration (Minutes) 6 RPM 60 Seat Position 15 Height 5 Other fwd/back Therapeutic Exercises Supine Exercises UE movements Supine Exercise Name AAROM cane chest press w/ serratus punch Reps/Minutes 15 Prone Exercises Habd Side right Reps/Minutes 15 tricep ext Side right Equipment Used 0# Reps/Minutes 15 Comments brachium supported by table 1 Prone Exercise Name extension Side right Reps/Minutes 20 Sidelying Exercises abd Sidelying Exercise Name comfortable range ( about 25 deg today) Side right Reps/Minutes 15 1 Sidelying Exercise Name ER Side right Reps/Minutes 15 Comments towel between elbow Manual Therapy Treatment Soft Tissue Mobilization 5 Body Location pec & biceps & UT R Mobilization Type Rolling,Strumming Intensity/Depth Moderate Body Position Hooklying PT-OP-R Modalities Start: 03/14/19 08:13 Freq: Status: Active Protocol: Document 04/12/19 09:00 [facility] (Rec: 04/12/19 09:48 [facility] [id number]) Electric Stimulation Electric Stimulation Interferential Current (IFC) Body Location R shoulder Duration (Minutes) 15 Patient Position Prone Combined With Heat/Cold Cold Pack Comments cold pack to lumbar and thoracic and R shoulder PT-OP-T Assessment and Plan Start: 03/14/19 08:13 Freq: Status: Active Protocol: Document 04/12/19 09:00 [facility] (Rec: 04/12/19 09:48 [facility] [id number]) Physical Therapy Assessment Goals ROM Short Term Goal (STG) pt will be able to demonstrate proper sitting and standing posture and apply corrections without cueing from PT in order to increase postural stability STG Duration 04/14/19 Lease Operator Goal (LTG) pt will increase ROM to match that of the left shoulder in order to improve pt ability to perform reaching ADL's LTG Duration 05/15/19 strength Short Term Goal (STG) pt will be compliant and indepndent with HEP STG Duration 04/14/19 Lease Operator Goal (LTG) pt will increase his B shoudler strength to at least 4/5 in order to increase pt participation in ADL's and functional mobility LTG Duration 05/15/19 QuickDASH Lease Operator Goal (LTG) pt will improve QuickDASH score to 19/100 in order to demonstrate significantly improved ability to carry out ADL's LTG Duration 05/15/19 pain Short Term Goal (STG) pt will be able to carry out ADL's and bed mobility with no more than 2 point increase in VAS STG Duration 04/14/19 Group Home Goal (LTG) pt will be able to return to lifting and being able to work out without increase in pain greater than 2 on the VAS in order to increase pt participation in daily activities LTG Duration 05/15/19 Assessment Summary Assessment Pt had to be reminded again that he is not allowed to be doing reisstance band exercises or resistance activities with shoulder motions. Instructed he can do biceps and triceps in stabilized shoulder positions only at this time. He cont to improve with AROM but has difficulty when positioned against gravity. Physical Therapy Plan Frequency and Duration Frequency of Treatment 2-3x /wk Duration of Treatment 2 months Plan of Care Start Date 03/14/19 Plan of Care End Date 05/15/19 Next Visit Focus/Plan Next Note Type Treatment Note Next Visit Plan joint mobs and progress range, work on AAROM & AROm; Apr 20 will be 12 weeks and pt can start strengthening
--- NOTE | 2019-04-26 12:06 | PT.OTN ---
Current Diagnoses Stiffness of right shoulder, not elsewhere classified (04/26/19) Abnormal posture (04/26/19) Weakness (04/26/19) Strain of muscle(s) and tendon(s) of the rotator cuff of right shoulder, subsequent encounter (04/26/19) Physical Therapy Treatment Note PT-OP-A Visit Information Start: 03/14/19 08:13 Freq: Status: Active Protocol: Document 04/26/19 11:21 [facility] (Rec: 04/26/19 12:06 [facility] [id number]) Out-Patient Physical Therapy Visit Information Visit Information Visit Type Treatment Note Visit Start Time 11:17 Visit Stop Time 12:15 Total Visit Minutes 58 Visit Number 7 Number of REGULATORY TECHNICIAN Visits 0 PT-OP-B Current Condition Start: 03/14/19 08:13 Freq: Status: Active Protocol: Document 03/14/19 16:03 MT (Rec: 03/14/19 18:08 MT [id number]) Current Condition History of Current Condition Onset Date 01/26/19 History of Current Condition Re: Back - Pt saw his D.O last week and the MRI from his midback and thoracic spine had come back and she did a trigger point treatment. He had injections of lidocaine in about 7-8 places. He has had some relief more from that, but is in a lot of pain. Saw Dr. Hawk to discuss surgery , but noel that surgery wasnt indicated. Referred to Dr. Estrella to o injections into the spine and trial for 2 procedures before continuing further. Re: SHoulder - Pt reports that he is able to do a lot more things in the past couple weeks like comb his hair. Pt remarks that he has been doing his exercises that he was given during the pre-surgery appt. Pt does not currently use a sling and he was cleared for sleeping without his sling. He still uses the sling for long duration out in public and at the gym and when he's walking his dog, but does not use his sling at home. He went to his ortho last week. Pt reports popping , but not always painful. Pt reports that he has been carrying up to 3 lb weight, and told the doctor that. During eval, pt was able to take of his sweatshirt and achieved quite a bit of flexion with this motion. Pt has to get into bed on L side in order to be able to lower self into bed without using R UE. Treatment Goals Patient/Caregiver Goals get back the ROM and strength in his arm PT-OP-C Subjective Start: 03/14/19 08:13 Freq: Status: Active Protocol: Document 04/26/19 11:21 [facility] (Rec: 04/26/19 12:06 [facility] [id number]) OP-PT Subjective Patient Comments Patient Comments Pt reports he feels like hsi shoulder is progressing well. He still has dizziness that the DO is working with him on. PT-OP-J Posture/Palpation/Skin Start: 03/14/19 08:13 Freq: Status: Active Protocol: Document 03/14/19 16:03 [facility] (Rec: 03/14/19 18:08 MT [id number]) Posture Evaluation Comments Posture Comments Sitting Posture: has rounded shoulders in sitting, his R shoulder is slightly more elevated than his L, his ribcage is anteriorly tilted in proportion to his pelvis Skin Assessment Incisional Assessment Incision Appearance/Comments Pt has 5 small 1/2 inch-sized incisions. They are completely closed and healed and have very little discoloration. there is no redness or notable swelling to the shoulder area. PT-OP-K Range of Motion Start: 03/14/19 08:13 Freq: Status: Active Protocol: Document 04/04/19 15:21 [facility] (Rec: 04/04/19 18:02 [facility] [id number]) Shoulder Goniometric Range of Motion Shoulder Right Passive Flexion 156 Abduction 148 External Rotation at 90 degrees 89 Abduction External Rotation at 0 degrees Abduction 60 Internal Rotation 48 Right Active Flexion 93 Extension 48 Abduction 121 External Rotation at 90 degrees 58 Abduction External Rotation at 0 degrees Abduction 52 Internal Rotation Behind Back (text) L2 Shoulder ROM Limitations Comments scaption: 131 PT-OP-Q Treatments Start: 03/14/19 08:13 Freq: Status: Active Protocol: Document 04/26/19 11:21 [facility] (Rec: 04/26/19 12:06 [facility] [id number]) Therapeutic Exercises Supine Exercises 3 Supine Exercise Name sserratus punch w/chest press Side right Reps/Minutes 20 Standing Exercises ER Side right Equipment Used L1 Reps/Minutes 20 3 Standing Exercise Name IR Side right Reps/Minutes 2x10 2 Standing Exercise Name row; ext w/tricep ext Side bilateral Reps/Minutes 20 ea 1 Standing Exercise Name pullys flex, abd & IR Manual Therapy Treatment Soft Tissue Mobilization 5 Body Location pec & biceps & UT R Mobilization Type Rolling,Strumming Intensity/Depth Moderate Body Position Hooklying Joint Mobilizations 5 Joint R GH Direction distraction, inf &post glides Grade II 4 Joint R AC Direction ventral FM PT-OP-R Modalities Start: 03/14/19 08:13 Freq: Status: Active Protocol: Document 04/26/19 11:21 [facility] (Rec: 04/26/19 12:06 [facility] [id number]) Electric Stimulation Electric Stimulation Interferential Current (IFC) Body Location R shoulder Duration (Minutes) 15 Patient Position Prone Combined With Heat/Cold Cold Pack Comments cold pack to lumbar and thoracic and R shoulder PT-OP-T Assessment and Plan Start: 03/14/19 08:13 Freq: Status: Active Protocol: Document 04/26/19 11:21 [facility] (Rec: 04/26/19 12:06 [facility] [id number]) Physical Therapy Assessment Goals ROM Short Term Goal (STG) pt will be able to demonstrate proper sitting and standing posture and apply corrections without cueing from PT in order to increase postural stability STG Duration 04/14/19 Waste Minimization Technician Goal (LTG) pt will increase ROM to match that of the left shoulder in order to improve pt ability to perform reaching ADL's LTG Duration 05/15/19 strength Short Term Goal (STG) pt will be compliant and indepndent with HEP STG Duration 04/14/19 Waste Minimization Technician Goal (LTG) pt will increase his B shoudler strength to at least 4/5 in order to increase pt participation in ADL's and functional mobility LTG Duration 05/15/19 QuickDASH Intermediate Goal (LTG) pt will improve QuickDASH score to 19/100 in order to demonstrate significantly improved ability to carry out ADL's LTG Duration 05/15/19 pain Short Term Goal (STG) pt will be able to carry out ADL's and bed mobility with no more than 2 point increase in VAS STG Duration 04/14/19 Intermediate Goal (LTG) pt will be able to return to lifting and being able to work out without increase in pain greater than 2 on the VAS in order to increase pt participation in daily activities LTG Duration 05/15/19 Assessment Summary Assessment Pt had almost full PROM with lacking only 10 deg into flex and about 5 into ER, about 20 dec of abd lacking but has significant dec IR at 90/90 position. He started with about 30 deg at beginining of manual but improved to about 70 deg after mobs & soft tissue Physical Therapy Plan Frequency and Duration Frequency of Treatment 2-3x /wk Duration of Treatment 2 months Plan of Care Start Date 03/14/19 Plan of Care End Date 05/15/19 Next Visit Focus/Plan Next Note Type Treatment Note Next Visit Plan advance strength and cont to work on end range motion
--- NOTE | 2019-05-02 13:48 | PT.OTN ---
Current Diagnoses Stiffness of right shoulder, not elsewhere classified (05/02/19) Abnormal posture (05/02/19) Weakness (05/02/19) Strain of muscle(s) and tendon(s) of the rotator cuff of right shoulder, subsequent encounter (05/02/19) Physical Therapy Treatment Note PT-OP-A Visit Information Start: 03/14/19 08:13 Freq: Status: Active Protocol: Document 05/02/19 12:56 [facility] (Rec: 05/02/19 13:48 [facility] [id number]) Out-Patient Physical Therapy Visit Information Visit Information Visit Type Treatment Note Visit Start Time 13:00 Visit Stop Time 13:53 Total Visit Minutes 53 Visit Number 8 Number of PET CARE ATTENDANT Visits 0 PT-OP-B Current Condition Start: 03/14/19 08:13 Freq: Status: Active Protocol: Document 03/14/19 16:03 MT (Rec: 03/14/19 18:08 MT [id number]) Current Condition History of Current Condition Onset Date 01/26/19 History of Current Condition Re: Back - Pt saw his D.O last week and the MRI from his midback and thoracic spine had come back and she did a trigger point treatment. He had injections of lidocaine in about 7-8 places. He has had some relief more from that, but is in a lot of pain. Saw Dr. Hawk to discuss surgery , but noel that surgery wasnt indicated. Referred to Dr. Estrella to o injections into the spine and trial for 2 procedures before continuing further. Re: SHoulder - Pt reports that he is able to do a lot more things in the past couple weeks like comb his hair. Pt remarks that he has been doing his exercises that he was given during the pre-surgery appt. Pt does not currently use a sling and he was cleared for sleeping without his sling. He still uses the sling for long duration out in public and at the gym and when he's walking his dog, but does not use his sling at home. He went to his ortho last week. Pt reports popping , but not always painful. Pt reports that he has been carrying up to 3 lb weight, and told the doctor that. During eval, pt was able to take of his sweatshirt and achieved quite a bit of flexion with this motion. Pt has to get into bed on L side in order to be able to lower self into bed without using R UE. Treatment Goals Patient/Caregiver Goals get back the ROM and strength in his arm PT-OP-C Subjective Start: 03/14/19 08:13 Freq: Status: Active Protocol: Document 05/02/19 12:56 [facility] (Rec: 05/02/19 13:48 [facility] [id number]) OP-PT Subjective Patient Comments Patient Comments Pt reports he thinks he got authorization to do PT for vestibular. He wants to do PT for LB because it gives him trouble still. His shoulder is still improving. Patient Reported Progress Improving PT-OP-J Posture/Palpation/Skin Start: 03/14/19 08:13 Freq: Status: Active Protocol: Document 03/14/19 16:03 MT (Rec: 03/14/19 18:08 MT [id number]) Posture Evaluation Comments Posture Comments Sitting Posture: has rounded shoulders in sitting, his R shoulder is slightly more elevated than his L, his ribcage is anteriorly tilted in proportion to his pelvis Skin Assessment Incisional Assessment Incision Appearance/Comments Pt has 5 small 1/2 inch-sized incisions. They are completely closed and healed and have very little discoloration. there is no redness or notable swelling to the shoulder area. PT-OP-K Range of Motion Start: 03/14/19 08:13 Freq: Status: Active Protocol: Document 04/04/19 15:21 [facility] (Rec: 04/04/19 18:02 [facility] [id number]) Shoulder Goniometric Range of Motion Shoulder Right Passive Flexion 156 Abduction 148 External Rotation at 90 degrees 89 Abduction External Rotation at 0 degrees Abduction 60 Internal Rotation 48 Right Active Flexion 93 Extension 48 Abduction 121 External Rotation at 90 degrees 58 Abduction External Rotation at 0 degrees Abduction 52 Internal Rotation Behind Back (text) L2 Shoulder ROM Limitations Comments scaption: 131 PT-OP-Q Treatments Start: 03/14/19 08:13 Freq: Status: Active Protocol: Document 05/02/19 12:56 [facility] (Rec: 05/02/19 13:48 [facility] [id number]) Therapeutic Exercises Prone Exercises scaption Side right Equipment Used 1# Reps/Minutes 10 Habd Side right Equipment Used 1# Reps/Minutes 15 1 Prone Exercise Name extension Side right Equipment Used 1# Reps/Minutes 10 Sidelying Exercises abd Sidelying Exercise Name comfortable range ( about 25 deg today) Side right Reps/Minutes 10 1 Sidelying Exercise Name ER Side right Equipment Used 1# Reps/Minutes 15 Comments towel between elbow Standing Exercises B ER Standing Exercise Name uni R Side bilateral Equipment Used lvl 1` Reps/Minutes 15 3 Standing Exercise Name IR Side right Equipment Used lvl 1 Reps/Minutes 2x10 2 Standing Exercise Name row; ext w/tricep ext Side bilateral Equipment Used lvl 3 & 1 Reps/Minutes 20 ea Manual Therapy Treatment Soft Tissue Mobilization 5 Body Location pec & biceps & UT R Mobilization Type Rolling,Strumming Intensity/Depth Moderate Body Position Hooklying Joint Mobilizations 5 Joint R GH Direction distraction, inf &post glides Grade II 4 Joint R AC Direction ventral FM PT-OP-R Modalities Start: 03/14/19 08:13 Freq: Status: Active Protocol: Document 05/02/19 12:56 [facility] (Rec: 05/02/19 13:48 [facility] [id number]) Electric Stimulation Electric Stimulation Interferential Current (IFC) Body Location R shoulder Duration (Minutes) 15 Patient Position Prone Combined With Heat/Cold Cold Pack Comments cold pack to lumbar and thoracic and R shoulder PT-OP-T Assessment and Plan Start: 03/14/19 08:13 Freq: Status: Active Protocol: Document 05/02/19 12:56 [facility] (Rec: 05/02/19 13:48 [facility] [id number]) Physical Therapy Assessment Goals ROM Short Term Goal (STG) pt will be able to demonstrate proper sitting and standing posture and apply corrections without cueing from PT in order to increase postural stability STG Duration 04/14/19 Group Home Goal (LTG) pt will increase ROM to match that of the left shoulder in order to improve pt ability to perform reaching ADL's LTG Duration 05/15/19 strength Short Term Goal (STG) pt will be compliant and indepndent with HEP STG Duration 04/14/19 Fixing Machine Operator Goal (LTG) pt will increase his B shoudler strength to at least 4/5 in order to increase pt participation in ADL's and functional mobility LTG Duration 05/15/19 QuickDASH Group Home Goal (LTG) pt will improve QuickDASH score to 19/100 in order to demonstrate significantly improved ability to carry out ADL's LTG Duration 05/15/19 pain Short Term Goal (STG) pt will be able to carry out ADL's and bed mobility with no more than 2 point increase in VAS STG Duration 04/14/19 Fixing Machine Operator Goal (LTG) pt will be able to return to lifting and being able to work out without increase in pain greater than 2 on the VAS in order to increase pt participation in daily activities LTG Duration 05/15/19 Assessment Summary Assessment Pt able to do better with resisted exercises today with inc resistance. He has difficulty with tricep ext and avoiding elevation of shoulder girdle. Physical Therapy Plan Frequency and Duration Frequency of Treatment 2-3x /wk Duration of Treatment 2 months Plan of Care Start Date 03/14/19 Plan of Care End Date 05/15/19 Next Visit Focus/Plan Next Note Type Progress Note Next Visit Plan advance strength and cont to work on end range motion
--- NOTE | 2019-05-07 14:34 | PT.OTN ---
Current Diagnoses Stiffness of right shoulder, not elsewhere classified (05/07/19) Abnormal posture (05/07/19) Weakness (05/07/19) Strain of muscle(s) and tendon(s) of the rotator cuff of right shoulder, subsequent encounter (05/07/19) Physical Therapy Treatment Note PT-OP-A Visit Information Start: 03/14/19 08:13 Freq: Status: Active Protocol: Document 05/07/19 13:16 [facility] (Rec: 05/07/19 14:31 [facility] [id number]) Out-Patient Physical Therapy Visit Information Visit Information Visit Type Treatment Note Visit Start Time 13:01 Visit Stop Time 13:59 Total Visit Minutes 58 Visit Number 9 Number of SOFTWARE PUBLISHER Visits 0 PT-OP-B Current Condition Start: 03/14/19 08:13 Freq: Status: Active Protocol: Document 03/14/19 16:03 MT (Rec: 03/14/19 18:08 MT [id number]) Current Condition History of Current Condition Onset Date 01/26/19 History of Current Condition Re: Back - Pt saw his D.O last week and the MRI from his midback and thoracic spine had come back and she did a trigger point treatment. He had injections of lidocaine in about 7-8 places. He has had some relief more from that, but is in a lot of pain. Saw Dr. Hawk to discuss surgery , but noel that surgery wasnt indicated. Referred to Dr. Estrella to o injections into the spine and trial for 2 procedures before continuing further. Re: SHoulder - Pt reports that he is able to do a lot more things in the past couple weeks like comb his hair. Pt remarks that he has been doing his exercises that he was given during the pre-surgery appt. Pt does not currently use a sling and he was cleared for sleeping without his sling. He still uses the sling for long duration out in public and at the gym and when he's walking his dog, but does not use his sling at home. He went to his ortho last week. Pt reports popping , but not always painful. Pt reports that he has been carrying up to 3 lb weight, and told the doctor that. During eval, pt was able to take of his sweatshirt and achieved quite a bit of flexion with this motion. Pt has to get into bed on L side in order to be able to lower self into bed without using R UE. Treatment Goals Patient/Caregiver Goals get back the ROM and strength in his arm PT-OP-C Subjective Start: 03/14/19 08:13 Freq: Status: Active Protocol: Document 05/07/19 13:16 [facility] (Rec: 05/07/19 14:31 [facility] [id number]) OP-PT Subjective Patient Comments Patient Comments Pt reports back injections went well with some relief. shoulder overall doing well PT-OP-J Posture/Palpation/Skin Start: 03/14/19 08:13 Freq: Status: Active Protocol: Document 03/14/19 16:03 MT (Rec: 03/14/19 18:08 MT [id number]) Posture Evaluation Comments Posture Comments Sitting Posture: has rounded shoulders in sitting, his R shoulder is slightly more elevated than his L, his ribcage is anteriorly tilted in proportion to his pelvis Skin Assessment Incisional Assessment Incision Appearance/Comments Pt has 5 small 1/2 inch-sized incisions. They are completely closed and healed and have very little discoloration. there is no redness or notable swelling to the shoulder area. PT-OP-K Range of Motion Start: 03/14/19 08:13 Freq: Status: Active Protocol: Document 04/04/19 15:21 [facility] (Rec: 04/04/19 18:02 [facility] [id number]) Shoulder Goniometric Range of Motion Shoulder Right Passive Flexion 156 Abduction 148 External Rotation at 90 degrees 89 Abduction External Rotation at 0 degrees Abduction 60 Internal Rotation 48 Right Active Flexion 93 Extension 48 Abduction 121 External Rotation at 90 degrees 58 Abduction External Rotation at 0 degrees Abduction 52 Internal Rotation Behind Back (text) L2 Shoulder ROM Limitations Comments scaption: 131 PT-OP-Q Treatments Start: 03/14/19 08:13 Freq: Status: Active Protocol: Document 05/07/19 13:16 [facility] (Rec: 05/07/19 14:31 [facility] [id number]) Cardio Equipment Upper Body Ergometer (UBE) Duration (Minutes) 6 RPM 60 Seat Position 15 Height 5 Other fwd/back Rowing Machine Duration (Minutes) 1 Other form focus Gym Equipment Cable Column (Body Solid) Rows Reps/Time 2x10 Lat Pull Down Resistance 2 Reps/Time 2x10 Therapeutic Exercises Standing Exercises ER Side right Equipment Used L1 Reps/Minutes 20 3 Standing Exercise Name IR Side right Equipment Used lvl 2 Reps/Minutes 2x10 2 Standing Exercise Name row Side bilateral Equipment Used lvl 3 Reps/Minutes 15 x2 Comments staggered stance 1 Standing Exercise Name scaption Side bilateral Reps/Minutes 2x8 Comments comfortable range w/ back to wall Manual Therapy Treatment Soft Tissue Mobilization 5 Body Location pec & biceps & UT R Mobilization Type Rolling,Strumming Intensity/Depth Moderate Body Position Hooklying PT-OP-R Modalities Start: 03/14/19 08:13 Freq: Status: Active Protocol: Document 05/07/19 13:16 [facility] (Rec: 05/07/19 14:34 [facility] [id number]) Electric Stimulation Electric Stimulation Interferential Current (IFC) Body Location R shoulder Duration (Minutes) 15 Patient Position Prone Combined With Heat/Cold Cold Pack Comments cold pack to lumbar and thoracic and R shoulder PT-OP-T Assessment and Plan Start: 03/14/19 08:13 Freq: Status: Active Protocol: Document 05/07/19 13:16 [facility] (Rec: 05/07/19 14:31 [facility] [id number]) Physical Therapy Assessment Goals ROM Short Term Goal (STG) pt will be able to demonstrate proper sitting and standing posture and apply corrections without cueing from PT in order to increase postural stability STG Duration 04/14/19 Usp Goal (LTG) pt will increase ROM to match that of the left shoulder in order to improve pt ability to perform reaching ADL's LTG Duration 05/15/19 strength Short Term Goal (STG) pt will be compliant and indepndent with HEP STG Duration 04/14/19 Floor Representative Goal (LTG) pt will increase his B shoudler strength to at least 4/5 in order to increase pt participation in ADL's and functional mobility LTG Duration 05/15/19 QuickDASH Usp Goal (LTG) pt will improve QuickDASH score to 19/100 in order to demonstrate significantly improved ability to carry out ADL's LTG Duration 05/15/19 pain Short Term Goal (STG) pt will be able to carry out ADL's and bed mobility with no more than 2 point increase in VAS STG Duration 04/14/19 Floor Representative Goal (LTG) pt will be able to return to lifting and being able to work out without increase in pain greater than 2 on the VAS in order to increase pt participation in daily activities LTG Duration 05/15/19 Assessment Summary Assessment Pt able to go through all range easily except flex and scaption. Scaqption exercise was significantly difficult for pt Physical Therapy Plan Frequency and Duration Frequency of Treatment 2-3x /wk Duration of Treatment 2 months Plan of Care Start Date 03/14/19 Plan of Care End Date 05/15/19 Next Visit Focus/Plan Next Note Type Progress Note Next Visit Plan advance strength and cont to work on end range motion
--- NOTE | 2019-05-14 18:49 | PT.OTN ---
Current Diagnoses Stiffness of right shoulder, not elsewhere classified (05/14/19) Abnormal posture (05/14/19) Weakness (05/14/19) Strain of muscle(s) and tendon(s) of the rotator cuff of right shoulder, subsequent encounter (05/14/19) Physical Therapy Treatment Note PT-OP-A Visit Information Start: 03/14/19 08:13 Freq: Status: Active Protocol: Document 05/14/19 12:58 [facility] (Rec: 05/14/19 18:49 [facility] [id number]) Out-Patient Physical Therapy Visit Information Visit Information Visit Type Treatment Note Visit Start Time 13:00 Visit Stop Time 13:55 Total Visit Minutes 55 Visit Number 10 Number of HEAD SHIPPER Visits 0 PT-OP-B Current Condition Start: 03/14/19 08:13 Freq: Status: Active Protocol: Document 03/14/19 16:03 MT (Rec: 03/14/19 18:08 MT [id number]) Current Condition History of Current Condition Onset Date 01/26/19 History of Current Condition Re: Back - Pt saw his D.O last week and the MRI from his midback and thoracic spine had come back and she did a trigger point treatment. He had injections of lidocaine in about 7-8 places. He has had some relief more from that, but is in a lot of pain. Saw Dr. Hawk to discuss surgery , but noel that surgery wasnt indicated. Referred to Dr. Estrella to o injections into the spine and trial for 2 procedures before continuing further. Re: SHoulder - Pt reports that he is able to do a lot more things in the past couple weeks like comb his hair. Pt remarks that he has been doing his exercises that he was given during the pre-surgery appt. Pt does not currently use a sling and he was cleared for sleeping without his sling. He still uses the sling for long duration out in public and at the gym and when he's walking his dog, but does not use his sling at home. He went to his ortho last week. Pt reports popping , but not always painful. Pt reports that he has been carrying up to 3 lb weight, and told the doctor that. During eval, pt was able to take of his sweatshirt and achieved quite a bit of flexion with this motion. Pt has to get into bed on L side in order to be able to lower self into bed without using R UE. 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 They are completely closed and healed and have very little discoloration. there is no redness or notable swelling to the shoulder area. PT-OP-K Range of Motion Start: 03/14/19 08:13 Freq: Status: Active Protocol: Document 05/14/19 12:58 [facility] (Rec: 05/14/19 18:49 [facility] [id number]) Shoulder Goniometric Range of Motion Shoulder Right Active Flexion 158 Extension 66 Abduction 168 External Rotation at 90 degrees 68 Abduction Internal Rotation 50 PT-OP-M Strength Start: 03/14/19 08:13 Freq: Status: Active Protocol: Document 05/14/19 12:58 [facility] (Rec: 05/14/19 18:49 [facility] [id number]) Shoulder Strength Shoulder Manual Muscle Testing Left Flexion 5 Normal Extension 4+ Good+ Abduction (C5) 5 Normal External Rotation 4 Good Internal Rotation 5 Normal Right Flexion 4 Good Extension 4- Good- Abduction (C5) 4- Good- External Rotation 3 Fair Internal Rotation 4 Good PT-OP-Q Treatments Start: 03/14/19 08:13 Freq: Status: Active Protocol: Document 05/14/19 12:58 [facility] (Rec: 05/14/19 18:49 [facility] [id number]) Therapeutic Exercises Standing Exercises ER Side right Equipment Used L1 Reps/Minutes 20 B ER Standing Exercise Name UNi R AROM w/towel Reps/Minutes 15 Manual Therapy Treatment Soft Tissue Mobilization 5 Body Location pec & biceps & UT R Mobilization Type Rolling,Strumming Intensity/Depth Moderate Body Position Hooklying Self-Care/Home Management Treatment Education Other Education anatomy of scap mm; scap vs thoracic movement PT-OP-R Modalities Start: 03/14/19 08:13 Freq: Status: Active Protocol: Document 05/14/19 12:58 [facility] (Rec: 05/14/19 18:49 [facility] [id number]) Electric Stimulation Electric Stimulation Interferential Current (IFC) Body Location R shoulder Duration (Minutes) 15 Patient Position Prone Combined With Heat/Cold Cold Pack Comments cold pack to lumbar and thoracic and R shoulder PT-OP-T Assessment and Plan Start: 03/14/19 08:13 Freq: Status: Active Protocol: Document 05/14/19 12:58 [facility] (Rec: 05/14/19 18:49 [facility] [id number]) Physical Therapy Assessment Goals ROM Short Term Goal (STG) pt will be able to demonstrate proper sitting and standing posture and apply corrections without cueing from PT in order to increase postural stability [id number] limited by back STG Duration 06/12/19 Weekend Receptionist Goal (LTG) pt will increase ROM to match that of the left shoulder in order to improve pt ability to perform reaching ADL's 05/14-very close LTG Duration 07/13/19 strength Short Term Goal (STG) pt will be compliant and indepndent with HEP STG Duration achieved Weekend Receptionist Goal (LTG) pt will increase his B shoudler strength to at least 4/5 in order to increase pt participation in ADL's and functional mobility 05/14-Pt improving LTG Duration 07/13/19 QuickDASH Weekend Receptionist Goal (LTG) pt will improve QuickDASH score to 19/100 in order to demonstrate significantly improved ability to carry out ADL's 05/14-improved to 20.5 LTG Duration 06/11 pain Short Term Goal (STG) pt will be able to carry out ADL's and bed mobility with no more than 2 point increase in VAS STG Duration achieved w/shoulder Half-Way Goal (LTG) pt will be able to return to lifting and being able to work out without increase in pain greater than 2 on the VAS in order to increase pt participation in daily activities 05/14-improved to 07/05 and gradually increased LTG Duration 07/13/19 Assessment Summary Assessment Pt is improving in his ability to do all tasks but has some end range AROM deficits and strength deficits, especailly ER. Pt given several ways to work on this along with scap motion. He would bneefit from PT to cont to continue working on his strength for improved functional ability. Physical Therapy Plan Frequency and Duration Frequency of Treatment 1-2x /wk Duration of Treatment 2 months Plan of Care Start Date 05/14/19 Plan of Care End Date 07/13/19 Therapeutic Interventions Therapeutic Interventions Aquatic Therapy,Coordination Training,Home Exercise Program ,Joint Mobilizations,Manual Therapy,Neuromuscular Re- education,Patient/Caregiver Education,Self-Care/Home Management,Sensory Integration ,Soft Tissue Mobilization, Taping,Therapeutic Activities, Therapeutic Exercises Modalities Cold Pack/Ice Massage,Electric Stimulation,Hot Packs, Infrared Therapy,Iontophoresis ,Ultrasound Next Visit Focus/Plan Next Note Type Treatment Note Next Visit Plan advance strength and cont to work on end range motion
--- NOTE | 2019-05-14 18:49 | PT.OPPOC ---
Physical, Occupational & Speech Therapy At [facility] Current Diagnoses Stiffness of right shoulder, not elsewhere classified (05/14/19) Abnormal posture (05/14/19) Weakness (05/14/19) Strain of muscle(s) and tendon(s) of the rotator cuff of right shoulder, subsequent encounter (05/14/19) Visit Care Team Role Provider Type Carina Hester DO Primary Care Provider Non-Staff Specialty: Family Practice Address: [address] [place] [address], [id number] Email: Bruno Solitario PA-C Attending Provider Non-Staff Specialty: Medical Address: [address] [place] [address], [id number] Phone: Email: Plan Of Care PT-OP-T Assessment and Plan Start: 03/14/19 08:13 Freq: Status: Active Protocol: Document 05/14/19 12:58 [facility] (Rec: 05/14/19 18:49 [facility] [id number]) Physical Therapy Assessment Goals ROM Short Term Goal (STG) pt will be able to demonstrate proper sitting and standing posture and apply corrections without cueing from PT in order to increase postural stability [id number] limited by back STG Duration 06/12/19 Care Home Goal (LTG) pt will increase ROM to match that of the left shoulder in order to improve pt ability to perform reaching ADL's 05/14-very close LTG Duration 07/13/19 strength Short Term Goal (STG) pt will be compliant and indepndent with HEP STG Duration achieved Care Home Goal (LTG) pt will increase his B shoudler strength to at least 4/5 in order to increase pt participation in ADL's and functional mobility 05/14-Pt improving LTG Duration 07/13/19 QuickDASH Care Home Goal (LTG) pt will improve QuickDASH score to 19/100 in order to demonstrate significantly improved ability to carry out ADL's 05/14-improved to 20.5 LTG Duration 06/11 pain Short Term Goal (STG) pt will be able to carry out ADL's and bed mobility with no more than 2 point increase in VAS STG Duration achieved w/shoulder Care Home Goal (LTG) pt will be able to return to lifting and being able to work out without increase in pain greater than 2 on the VAS in order to increase pt participation in daily activities 05/14-improved to 07/05 and gradually increased LTG Duration 07/13/19 Assessment Summary Assessment Pt is improving in his ability to do all tasks but has some end range AROM deficits and strength deficits, especailly ER. Pt given several ways to work on this along with scap motion. He would bneefit from PT to cont to continue working on his strength for improved functional ability. Physical Therapy Plan Frequency and Duration Frequency of Treatment 1-2x /wk Duration of Treatment 2 months Plan of Care Start Date 05/14/19 Plan of Care End Date 07/13/19 Therapeutic Interventions Therapeutic Interventions Aquatic Therapy,Coordination Training,Home Exercise Program ,Joint Mobilizations,Manual Therapy,Neuromuscular Re- education,Patient/Caregiver Education,Self-Care/Home Management,Sensory Integration ,Soft Tissue Mobilization, Taping,Therapeutic Activities, Therapeutic Exercises Modalities Cold Pack/Ice Massage,Electric Stimulation,Hot Packs, Infrared Therapy,Iontophoresis ,Ultrasound Next Visit Focus/Plan Next Note Type Treatment Note Next Visit Plan advance strength and cont to work on end range motion Plan of Care Dates Plan of Care Start Date 05/14/19 Plan of Care End Date 07/13/19 Electronically Signed by: Cristina Lee, PT 05/14/19 1605 Please Sign and Return: I have reviewed this Plan of Care and certify that the skilled therapy services above are required to meet the patient?s needs. Physician Signature Date Printed Name and Credentials Clinical Instructor Signature Printed Name and Credentials
--- NOTE | 2019-05-23 15:33 | PT.OTN ---
Current Diagnoses Stiffness of right shoulder, not elsewhere classified (05/23/19) Abnormal posture (05/23/19) Weakness (05/23/19) Strain of muscle(s) and tendon(s) of the rotator cuff of right shoulder, subsequent encounter (05/23/19) Physical Therapy Treatment Note PT-OP-A Visit Information Start: 03/14/19 08:13 Freq: Status: Active Protocol: Document 05/23/19 13:27 [facility] (Rec: 05/23/19 15:33 [facility] [id number]) Out-Patient Physical Therapy Visit Information Visit Information Visit Type Treatment Note Visit Start Time 13:04 Visit Stop Time 13:58 Total Visit Minutes 54 Visit Number 11 Number of EMBOSSING TOOL SETTER Visits 0 PT-OP-B Current Condition Start: 03/14/19 08:13 Freq: Status: Active Protocol: Document 03/14/19 16:03 [facility] (Rec: 03/14/19 18:08 MT [id number]) Current Condition History of Current Condition Onset Date 01/26/19 History of Current Condition Re: Back - Pt saw his D.O last week and the MRI from his midback and thoracic spine had come back and she did a trigger point treatment. He had injections of lidocaine in about 7-8 places. He has had some relief more from that, but is in a lot of pain. Saw Dr. Hawk to discuss surgery , but noel that surgery wasnt indicated. Referred to Dr. Estrella to o injections into the spine and trial for 2 procedures before continuing further. Re: [place] - Pt reports that he is able to do a lot more things in the past couple weeks like comb his hair. Pt remarks that he has been doing his exercises that he was given during the pre-surgery appt. Pt does not currently use a sling and he was cleared for sleeping without his sling. He still uses the sling for long duration out in public and at the gym and when he's walking his dog, but does not use his sling at home. He went to his ortho last week. Pt reports popping , but not always painful. Pt reports that he has been carrying up to 3 lb weight, and told the doctor that. During eval, pt was able to take of his sweatshirt and achieved quite a bit of flexion with this motion. Pt has to get into bed on L side in order to be able to lower self into bed without using R UE. Treatment Goals Patient/Caregiver Goals get back the ROM and strength in his arm PT-OP-C Subjective Start: 03/14/19 08:13 Freq: Status: Active Protocol: Document 05/23/19 13:27 [facility] (Rec: 05/23/19 15:33 [facility] [id number]) OP-PT Subjective Patient Comments Patient Comments Pt reports overall shoulder going well. noted he will be going through with the ablation for his back pain PT-OP-J Posture/Palpation/Skin Start: 03/14/19 08:13 Freq: Status: Active Protocol: Document 03/14/19 16:03 MT (Rec: 03/14/19 18:08 MT [id number]) Posture Evaluation Comments Posture Comments Sitting Posture: has rounded shoulders in sitting, his R shoulder is slightly more elevated than his L, his ribcage is anteriorly tilted in proportion to his pelvis Skin Assessment Incisional Assessment Incision Appearance/Comments Pt has 5 small 1/2 inch-sized incisions. They are completely closed and healed and have very little discoloration. there is no redness or notable swelling to the shoulder area. PT-OP-K Range of Motion Start: 03/14/19 08:13 Freq: Status: Active Protocol: Document 05/14/19 12:58 [facility] (Rec: 05/14/19 18:49 [facility] [id number]) Shoulder Goniometric Range of Motion Shoulder Right Active Flexion 158 Extension 66 Abduction 168 External Rotation at 90 degrees 68 Abduction Internal Rotation 50 PT-OP-M Strength Start: 03/14/19 08:13 Freq: Status: Active Protocol: Document 05/14/19 12:58 [facility] (Rec: 05/14/19 18:49 [facility] [id number]) Shoulder Strength Shoulder Manual Muscle Testing Left Flexion 5 Normal Extension 4+ Good+ Abduction (C5) 5 Normal External Rotation 4 Good Internal Rotation 5 Normal Right Flexion 4 Good Extension 4- Good- Abduction (C5) 4- Good- External Rotation 3 Fair Internal Rotation 4 Good PT-OP-Q Treatments Start: 03/14/19 08:13 Freq: Status: Active Protocol: Document 05/23/19 13:27 [facility] (Rec: 05/23/19 15:33 [facility] [id number]) Gym Equipment Cable Column (Body Solid) Lat Pull Down Resistance 2 Reps/Time 15 Therapeutic Exercises Prone Exercises scaption Side right Equipment Used 1# Reps/Minutes 20 Habd Side right Equipment Used 2# Reps/Minutes 20 1 Side right Reps/Minutes 2x10 Standing Exercises ER Side right Equipment Used L1 Reps/Minutes 10 Comments also holding in end range Manual Therapy Treatment Soft Tissue Mobilization 4 Body Location infraspinatsus R Mobilization Type Rolling Intensity/Depth Moderate PT-OP-R Modalities Start: 03/14/19 08:13 Freq: Status: Active Protocol: Document 05/23/19 13:27 [facility] (Rec: 05/23/19 15:33 [facility] [id number]) Electric Stimulation Electric Stimulation Interferential Current (IFC) Body Location R shoulder Duration (Minutes) 15 Patient Position Prone Combined With Heat/Cold Cold Pack Comments cold pack to lumbar and thoracic and R shoulder PT-OP-T Assessment and Plan Start: 03/14/19 08:13 Freq: Status: Active Protocol: Document 05/23/19 13:27 [facility] (Rec: 05/23/19 15:33 [facility] [id number]) Physical Therapy Assessment Goals ROM Short Term Goal (STG) pt will be able to demonstrate proper sitting and standing posture and apply corrections without cueing from PT in order to increase postural stability 4-02-[id number] limited by back STG Duration 06/12/19 Grocery Caddy Goal (LTG) pt will increase ROM to match that of the left shoulder in order to improve pt ability to perform reaching ADL's 05/14-very close LTG Duration 07/13/19 strength Short Term Goal (STG) pt will be compliant and indepndent with HEP STG Duration achieved Grocery Caddy Goal (LTG) pt will increase his B shoudler strength to at least 4/5 in order to increase pt participation in ADL's and functional mobility 05/14-Pt improving LTG Duration 07/13/19 QuickDASH Grocery Caddy Goal (LTG) pt will improve QuickDASH score to 19/100 in order to demonstrate significantly improved ability to carry out ADL's 05/14-improved to 20.5 LTG Duration 06/11 pain Short Term Goal (STG) pt will be able to carry out ADL's and bed mobility with no more than 2 point increase in VAS STG Duration achieved w/shoulder [facility] Goal (LTG) pt will be able to return to lifting and being able to work out without increase in pain greater than 2 on the VAS in order to increase pt participation in daily activities 05/14-improved to 07/05 and gradually increased LTG Duration 07/13/19 Assessment Summary Assessment Pt improving with ability to tolerate inc resistance with exercises and is improving with his ability to reach and rotate against asistance. Physical Therapy Plan Frequency and Duration Frequency of Treatment 1-2x /wk Duration of Treatment 2 months Plan of Care Start Date 05/14/19 Plan of Care End Date 07/13/19 Next Visit Focus/Plan Next Note Type Treatment Note Next Visit Plan advance strength especially for ER and cont to work on end range motion
--- NOTE | 2019-06-04 14:37 | PT.OTN ---
Current Diagnoses Stiffness of right shoulder, not elsewhere classified (06/04/19) Abnormal posture (06/04/19) Weakness (06/04/19) Strain of muscle(s) and tendon(s) of the rotator cuff of right shoulder, subsequent encounter (06/04/19) Physical Therapy Treatment Note PT-OP-A Visit Information Start: 03/14/19 08:13 Freq: Status: Active Protocol: Document 06/04/19 13:03 [facility] (Rec: 06/04/19 14:37 [facility] [id number]) Out-Patient Physical Therapy Visit Information Visit Information Visit Type Discharge Summary Visit Start Time 13:00 Visit Stop Time 14:00 Total Visit Minutes 60 Visit Number 12 Number of TOY ASSEMBLER WOOD Visits 0 PT-OP-B Current Condition Start: 03/14/19 08:13 Freq: Status: Active Protocol: Document 03/14/19 16:03 [facility] (Rec: 03/14/19 18:08 MT [id number]) Current Condition History of Current Condition Onset Date 01/26/19 History of Current Condition Re: Back - Pt saw his D.O last week and the MRI from his midback and thoracic spine had come back and she did a trigger point treatment. He had injections of lidocaine in about 7-8 places. He has had some relief more from that, but is in a lot of pain. Saw Dr. Hawk to discuss surgery , but noel that surgery wasnt indicated. Referred to Dr. Estrella to o injections into the spine and trial for 2 procedures before continuing further. Re: [place]oulder - Pt reports that he is able to do a lot more things in the past couple weeks like comb his hair. Pt remarks that he has been doing his exercises that he was given during the pre-surgery appt. Pt does not currently use a sling and he was cleared for sleeping without his sling. He still uses the sling for long duration out in public and at the gym and when he's walking his dog, but does not use his sling at home. He went to his ortho last week. Pt reports popping , but not always painful. Pt reports that he has been carrying up to 3 lb weight, and told the doctor that. During eval, pt was able to take of his sweatshirt and achieved quite a bit of flexion with this motion. Pt has to get into bed on L side in order to be able to lower self into bed without using R UE. Treatment Goals Patient/Caregiver Goals get back the ROM and strength in his arm PT-OP-C Subjective Start: 03/14/19 08:13 Freq: Status: Active Protocol: Document 06/04/19 13:03 [facility] (Rec: 06/04/19 14:37 [facility] [id number]) OP-PT Subjective Patient Comments Patient Comments Pt reports shoulder is doing very well. He does well with reaching. Patient Questionnaires Quick Dash- Upper Extremity Quick Dash UE Score 16 PT-OP-J Posture/Palpation/Skin Start: 03/14/19 08:13 Freq: Status: Active Protocol: Document 03/14/19 16:03 [facility] (Rec: 03/14/19 18:08 MT [id number]) Posture Evaluation Comments Posture Comments Sitting Posture: has rounded shoulders in sitting, his R shoulder is slightly more elevated than his L, his ribcage is anteriorly tilted in proportion to his pelvis Skin Assessment Incisional Assessment Incision Appearance/Comments Pt has 5 small 1/2 inch-sized incisions. They are completely closed and healed and have very little discoloration. there is no redness or notable swelling to the shoulder area. PT-OP-K Range of Motion Start: 03/14/19 08:13 Freq: Status: Active Protocol: Document 06/04/19 13:03 [facility] (Rec: 06/04/19 14:37 [facility] [id number]) Shoulder Goniometric Range of Motion Shoulder Left Active Shoulder ROM WFL Yes Testing Position Standing Flexion 168 Extension 65 Abduction 160 External Rotation at 90 degrees 74 Abduction External Rotation at 0 degrees Abduction 65 Internal Rotation 79 Internal Rotation Behind Back (text) T6 Right Active Flexion 166 Extension 68 Abduction 168 External Rotation at 90 degrees 73 Abduction Internal Rotation 59 Internal Rotation Behind Back (text) T8 PT-OP-M Strength Start: 03/14/19 08:13 Freq: Status: Active Protocol: Document 06/04/19 13:03 [facility] (Rec: 06/04/19 14:37 [facility] [id number]) Shoulder Strength Shoulder Manual Muscle Testing Right Flexion 4 Good Extension 4 Good Abduction (C5) 4 Good External Rotation 3+ Fair+ Internal Rotation 4+ Good+ PT-OP-Q Treatments Start: 03/14/19 08:13 Freq: Status: Active Protocol: Document 06/04/19 13:03 [facility] (Rec: 06/04/19 14:37 [facility] [id number]) Cardio Equipment Upper Body Ergometer (UBE) Duration (Minutes) 6 RPM 60 Seat Position 13 Height 5.5 Other fwd/back Therapeutic Exercises Prone Exercises scaption Side bilateral Equipment Used 1# Reps/Minutes 20 Comments over tball Habd Side bilateral Equipment Used 2# Reps/Minutes 20 1 Prone Exercise Name 90/90 ER Side bilateral Equipment Used 1# Reps/Minutes 2x10 Standing Exercises ER Side right Equipment Used L1 Reps/Minutes 20 B ER Standing Exercise Name R ER then walk to R w/arm at end range Equipment Used L1 Reps/Minutes 10 3 Standing Exercise Name 45 deg ER Side right Equipment Used 1st set no reisstance then 2nd lvl 1 Reps/Minutes 2x5 Manual Therapy Treatment Soft Tissue Mobilization 5 Body Location scalenes & UT R Mobilization Type Rolling,Strumming Intensity/Depth Moderate Body Position Hooklying PT-OP-R Modalities Start: 03/14/19 08:13 Freq: Status: Active Protocol: Document 06/04/19 13:03 [facility] (Rec: 06/04/19 14:37 [facility] [id number]) Electric Stimulation Electric Stimulation Interferential Current (IFC) Body Location R shoulder Duration (Minutes) 15 Patient Position Prone Combined With Heat/Cold Cold Pack Comments cold pack to lumbar and thoracic and R shoulder PT-OP-T Assessment and Plan Start: 03/14/19 08:13 Freq: Status: Active Protocol: Document 06/04/19 13:03 [facility] (Rec: 06/04/19 14:37 [facility] [id number]) Physical Therapy Assessment Goals ROM Short Term Goal (STG) pt will be able to demonstrate proper sitting and standing posture and apply corrections without cueing from PT in order to increase postural stability 8-16-[id number] limited by back STG Duration improved significantly Alf Goal (LTG) pt will increase ROM to match that of the left shoulder in order to improve pt ability to perform reaching ADL's 05/14-very close LTG Duration achieved strength Short Term Goal (STG) pt will be compliant and indepndent with HEP STG Duration achieved Alf Goal (LTG) pt will increase his B shoudler strength to at least 4/5 in order to increase pt participation in ADL's and functional mobility 05/14-Pt improving LTG Duration achieved except R ER QuickDASH Alf Goal (LTG) pt will improve QuickDASH score to 19/100 in order to demonstrate significantly improved ability to carry out ADL's 05/14-improved to 20.5 LTG Duration achieved to 16 pain Short Term Goal (STG) pt will be able to carry out ADL's and bed mobility with no more than 2 point increase in VAS STG Duration achieved w/shoulder [employer] Goal (LTG) pt will be able to return to lifting and being able to work out without increase in pain greater than 2 on the VAS in order to increase pt participation in daily activities 05/14-improved to 4/10 and gradually increased LTG Duration achieved Assessment Summary Assessment Pt has made excellent progress with ROM of RUE very close to stame (within 10 deg) of LUE in all ranges. He is progressing in strength and is most lmited in ER and is now indepw ith exercises to address this. Pt reports no issues with home activites and is gradually inc resistance in gym. Physical Therapy Plan Discharge Physical Therapy Discharge Reasons Goals Met
--- NOTE | 2019-06-04 14:39 | PT.OTN ---
Current Diagnoses Stiffness of right shoulder, not elsewhere classified (06/04/19) Abnormal posture (06/04/19) Weakness (06/04/19) Strain of muscle(s) and tendon(s) of the rotator cuff of right shoulder, subsequent encounter (06/04/19) Physical Therapy Treatment Note PT-OP-A Visit Information Start: 03/14/19 08:13 Freq: Status: Active Protocol: Document 06/04/19 13:03 [facility] (Rec: 06/04/19 14:37 [facility] [id number]) Out-Patient Physical Therapy Visit Information Visit Information Visit Type Discharge Summary Visit Start Time 13:00 Visit Stop Time 14:00 Total Visit Minutes 60 Visit Number 12 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 He had injections of lidocaine in about 7-8 places. He has had some relief more from that, but is in a lot of pain. Saw Dr. Hawk to discuss surgery , but noel that surgery wasnt indicated. Referred to Dr. Estrella to o injections into the spine and trial for 2 procedures before continuing further. Re: [place] - Pt reports that he is able to do a lot more things in the past couple weeks like comb his hair. Pt remarks that he has been doing his exercises that he was given during the pre-surgery appt. Pt does not currently use a sling and he was cleared for sleeping without his sling. He still uses the sling for long duration out in public and at the gym and when he's walking his dog, but does not use his sling at home. He went to his ortho last week. Pt reports popping , but not always painful. Pt reports that he has been carrying up to 3 lb weight, and told the doctor that. During eval, pt was able to take of his sweatshirt and achieved quite a bit of flexion with this motion. Pt has to get into bed on L side in order to be able to lower self into bed without using R UE. Treatment Goals Patient/Caregiver Goals get back the ROM and strength in his arm PT-OP-C Subjective Start: 03/14/19 08:13 Freq: Status: Active Protocol: Document 06/04/19 13:03 [facility] (Rec: 06/04/19 14:37 [facility] [id number]) OP-PT Subjective Patient Comments Patient Comments Pt reports shoulder is doing very well. He does well with reaching. Patient Questionnaires Quick Dash- Upper Extremity Quick Dash UE Score 16 PT-OP-J Posture/Palpation/Skin Start: 03/14/19 08:13 Freq: Status: Active Protocol: Document 03/14/19 16:03 MT (Rec: 03/14/19 18:08 MT [id number]) Posture Evaluation Comments Posture Comments Sitting Posture: has rounded shoulders in sitting, his R shoulder is slightly more elevated than his L, his ribcage is anteriorly tilted in proportion to his pelvis Skin Assessment Incisional Assessment Incision Appearance/Comments Pt has 5 small 1/2 inch-sized incisions. They are completely closed and healed and have very little discoloration. there is no redness or notable swelling to the shoulder area. PT-OP-K Range of Motion Start: 03/14/19 08:13 Freq: Status: Active Protocol: Document 06/04/19 13:03 [facility] (Rec: 06/04/19 14:37 [facility] [id number]) Shoulder Goniometric Range of Motion Shoulder Left Active Shoulder ROM WFL Yes Testing Position Standing Flexion 168 Extension 65 Abduction 160 External Rotation at 90 degrees 74 Abduction External Rotation at 0 degrees Abduction 65 Internal Rotation 79 Internal Rotation Behind Back (text) T6 Right Active Flexion 166 Extension 68 Abduction 168 External Rotation at 90 degrees 73 Abduction Internal Rotation 59 Internal Rotation Behind Back (text) T8 PT-OP-M Strength Start: 03/14/19 08:13 Freq: Status: Active Protocol: Document 06/04/19 13:03 [facility] (Rec: 06/04/19 14:37 [facility] [id number]) Shoulder Strength Shoulder Manual Muscle Testing Right Flexion 4 Good Extension 4 Good Abduction (C5) 4 Good External Rotation 3+ Fair+ Internal Rotation 4+ Good+ PT-OP-Q Treatments Start: 03/14/19 08:13 Freq: Status: Active Protocol: Document 06/04/19 13:03 [facility] (Rec: 06/04/19 14:37 [facility] [id number]) Cardio Equipment Upper Body Ergometer (UBE) Duration (Minutes) 6 RPM 60 Seat Position 13 Height 5.5 Other fwd/back Therapeutic Exercises Prone Exercises scaption Side bilateral Equipment Used 1# Reps/Minutes 20 Comments over tball Habd Side bilateral Equipment Used 2# Reps/Minutes 20 1 Prone Exercise Name 90/90 ER Side bilateral Equipment Used 1# Reps/Minutes 2x10 Standing Exercises ER Side right Equipment Used L1 Reps/Minutes 20 B ER Standing Exercise Name R ER then walk to R w/arm at end range Equipment Used L1 Reps/Minutes 10 3 Standing Exercise Name 45 deg ER Side right Equipment Used 1st set no reisstance then 2nd lvl 1 Reps/Minutes 2x5 Manual Therapy Treatment Soft Tissue Mobilization 5 Body Location scalenes & UT R Mobilization Type Rolling,Strumming Intensity/Depth Moderate Body Position Hooklying PT-OP-R Modalities Start: 03/14/19 08:13 Freq: Status: Active Protocol: Document 06/04/19 13:03 [facility] (Rec: 06/04/19 14:37 [facility] [id number]) Electric Stimulation Electric Stimulation Interferential Current (IFC) Body Location R shoulder Duration (Minutes) 15 Patient Position Prone Combined With Heat/Cold Cold Pack Comments cold pack to lumbar and thoracic and R shoulder PT-OP-T Assessment and Plan Start: 03/14/19 08:13 Freq: Status: Active Protocol: Document 06/04/19 13:03 [facility] (Rec: 06/04/19 14:37 [facility] [id number]) Physical Therapy Assessment Goals ROM Short Term Goal (STG) pt will be able to demonstrate proper sitting and standing posture and apply corrections without cueing from PT in order to increase postural stability [id number] limited by back STG Duration improved significantly Shelter Goal (LTG) pt will increase ROM to match that of the left shoulder in order to improve pt ability to perform reaching ADL's 05/14-very close LTG Duration achieved strength Short Term Goal (STG) pt will be compliant and indepndent with HEP STG Duration achieved Shelter Goal (LTG) pt will increase his B shoudler strength to at least 4/5 in order to increase pt participation in ADL's and functional mobility 05/14-Pt improving LTG Duration achieved except R ER QuickDASH Shelter Goal (LTG) pt will improve QuickDASH score to 19/100 in order to demonstrate significantly improved ability to carry out ADL's 05/14-improved to 20.5 LTG Duration achieved to 16 pain Short Term Goal (STG) pt will be able to carry out ADL's and bed mobility with no more than 2 point increase in VAS STG Duration achieved w/shoulder Baggage Handling Supervisor Goal (LTG) pt will be able to return to lifting and being able to work out without increase in pain greater than 2 on the VAS in order to increase pt participation in daily activities 05/14-improved to 4/10 and gradually increased LTG Duration achieved Assessment Summary Assessment Pt has made excellent progress with ROM of RUE very close to stame (within 10 deg) of LUE in all ranges. He is progressing in strength and is most lmited in ER and is now indepw ith exercises to address this. Pt reports no issues with home activites and is gradually inc resistance in gym. Physical Therapy Plan Discharge Physical Therapy Discharge Reasons Goals Met
== END 2019-06-05 13:15 ==
LOC: PHYS 13:00
PROVIDERS: PCP Family Medicine; Visit Provider Physician Assistant
DX: S46.011D Strain of muscle(s) and tendon(s) of the rotator cuff of right shoulder, subsequent encounter (principal); R53.1 Weakness; R29.3 Abnormal posture; M25.611 Stiffness of right shoulder, not elsewhere classified
CPT/HCPCS: 97014; 97110; 97140; 97162; 97535; G0283

== ENCOUNTER 2019-06-18 09:45 | Outpatient (RCR) | payer OTHER, MEDICAID, SELFPAY ==
--- NOTE | 2019-06-13 15:54 | PT.OTN ---
Current Diagnoses Cervicalgia (06/13/19) Unsteadiness on feet (06/13/19) Dizziness and giddiness (06/13/19) Physical Therapy Treatment Note PT-OP-A Visit Information Start: 06/13/19 11:18 Freq: Status: Active Protocol: Document 06/13/19 11:15 [facility] (Rec: 06/13/19 14:23 [facility] [id number]) Out-Patient Physical Therapy Visit Information Visit Information Visit Type Initial Evaluation Visit Start Time 11:15 Visit Stop Time 12:00 Total Visit Minutes 45 Visit Number 1 Number of COBOL DEVELOPER Visits 0 Evaluation Information Evaluation Date 06/13/19 PT-OP-B Current Condition Start: 06/13/19 11:18 Freq: Status: Active Protocol: Document 06/13/19 11:15 [facility] (Rec: 06/13/19 12:04 [facility] [id number]) Current Condition History of Current Condition Onset Date January 26 Current Complaints Dizziness when sitting up in bed/Imbalanced at night time History of Current Condition Patient reports to physical therapy due to a feeling of dizziness when sitting up in bed as well as a feeling of imbalance when walking at night. He thinks this all started happening January 26 when he got rotator cuff surgery. 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 He has a history of migraines that he says is controlled with half a dose of Sumatriptan. He has had history of dizziness which he reports he has handled in the past with the Alberto Maneuver. After further explanation, the patient seems to be performing Sutton-Daroff at home. He reports it is hard to isolate migraines and dizziness but at times he does have a sensation of dizziness with no migraines. Patient also reports that he has a hard time balancing at night and shadows bother him but he has adapted. His most frequent symptoms are that everytime he sits up at night, he experiences 3-5 seconds of spins to the Right and reports this as a slow spin. The first few steps out of bed, he has to mentally realign before continuing. Patient denies any recent falls. He also reports that sleeping on R side and rolling to back, he spins for 3-5 seconds. He thinks that this is a similar feeling of being on a boat. He reports that he did have a recent vision appointment and they said his vision looks great. Prior Treatments and Tests has had César-Hallpike from done from DO - per patient report, he had no nystagmus reported Been to ED for dizziness in past CT scan and per patient report did not show any significant impairments Treatment Goals Patient/Caregiver Goals Patient would like to not feel dizzy sitting up from bed and increase balance in the night Prior Functional Status Baseline Function- ADL's Independent Baseline Function- Mobility Independent Current Functional Impairments (Reported) Functional Limitations- Mobility/Gait Supine>Sit brings sense of sway to the R for 3-5 seconds Walking when dark/in the evening gives sense of imbalance Personal Factors Other Personal Factors That May Effect Arthritis Therapy/Recovery History of back pain High Blood Pressure Headaches Past spinal surgery Past R shoulder surgery PT-OP-C Subjective Start: 06/13/19 11:18 Freq: Status: Active Protocol: Document 06/13/19 11:15 [facility] (Rec: 06/13/19 14:25 EG [email or web address]) Patient Questionnaires ABC- Activity Specific Balance Confidence Scale ABC Score 76.9 ABC Functional Impairment 20 to <40% Impaired (Score 61- 80) Dizziness Handicap Inventory DHI Score 52 DHI Functional Impairment 40 to 59% Impaired (Score 40- 59) PT-OP-O Vestibular Start: 06/13/19 11:18 Freq: Status: Active Protocol: Document 06/13/19 11:15 [facility] (Rec: 06/13/19 15:00 [facility] [id number]) Vestibular Assessment Screening Tests Vestibular Artery Screen Negative Sharp-Oralia Test Negative Visual Testing Smooth Pursuits Horizontal Slight cervical movements with eye motion; no dizziness Smooth Pursuits Vertical Slight cervical movements with eye motion; no dizziness Saccades Horizontal - Saccades Vertical - Gaze Evoked Nystagmus With Fixation Negative Spontaneous Nystagmus Negative Positional Testing Hartman-Hallpike Negative Left,Negative Right Rolling Test Negative Left,Negative Right Supine to Sit Positive Cervical Vertigo Test Positive Comments Vestibular Comments hard to disassociate cervical and eye movement with VORx1 - no dizziness reported patient's neck ROM is WNL but does have floating feeling when moving head from flexed position to neutral for 3 seconds. Patient had sensation of sway when returning from R rotation to neutral as well as a sway sensation when keeping head and performing thoracic rotation to the R. PT-OP-T Assessment and Plan Start: 06/13/19 11:18 Freq: Status: Active Protocol: Document 06/13/19 11:15 [facility] (Rec: 06/13/19 15:00 [facility] [id number]) Physical Therapy Assessment Rehab Potential Rehabilitation Potential Good Evaluation Complexity Number of Personal Factors/Comorbidities 3 or More Number of Body Systems Impaired 4 or More Clinical Presentation at Evaluation Stable Impairments Impairments Activity Tolerance,Balance, Coordination,Functional Activities,Functional Mobility ,Pain,Posture,ROM,Soft Tissue Mobility,Vestibular Goals Six Impairment Dizziness with transfers Short Term Goal (STG) Patient will experience sway sensation 50% less of the time when moving in bed from supine>sit in 3 weeks. STG Duration 3 weeks Chcf Goal (LTG) Patient will no longer experience sway sensation when moving from supine to sit in 6 weeks. LTG Duration 6 weeks Five Impairment Balance at night Churn Driller Goal (LTG) In 6 weeks, patient will report having imbalanced feeling <25% of the time he is getting up in the middle of the night. LTG Duration 6 weeks Four Impairment Dizziness Questionnaire Index Chcf Goal (LTG) Patient will report less than 20% impairment on the DQI in 6 weeks. LTG Duration 6 weeks Assessment Summary Assessment Patient is a 68 year old male who reports to physical therapy due to the complaint of dizziness witht he majority of his symptoms occuring when moving from supine to sit in bed. He tested negative for BPPV and did not have significant dizziness during vestibular testing though increased testing should be done to determine role of vestibular system on his dizziness. Patient did have correlation of increased sway with cervical involvement. He will benefit from vestibular and cervical coordination training to help decrease neck involvement when moving gaze from side to side. Patient will also benefit from normalizing neck ROM. Physical Therapy Plan Frequency and Duration Frequency of Treatment 1x/Week Duration of Treatment 6 weeks Plan of Care Start Date 06/13/19 Plan of Care End Date 07/25/19 Therapeutic Interventions Therapeutic Interventions Coordination Training,Home Exercise Program,Joint Mobilizations,Manual Therapy, Neuromuscular Re-education, Patient/Caregiver Education, Self-Care/Home Management,Soft Tissue Mobilization,Taping, Therapeutic Activities, Therapeutic Exercises, Vestibular Rehabilitation Modalities Cold Pack/Ice Massage,Electric Stimulation,Hot Packs, Traction- Mechanical Next Visit Focus/Plan Next Note Type Treatment Note Next Visit Plan Performn more vestibular testing as well as increased balance testing ILilly DPT, supervised all treatment performed by, and agreed with the plan of care, as performed by Dior Akbar SPT.
--- NOTE | 2019-06-13 15:57 | PT.OPPOC ---
Physical, Occupational & Speech Therapy At [facility] Current Diagnoses Cervicalgia (06/13/19) Unsteadiness on feet (06/13/19) Dizziness and giddiness (06/13/19) Visit Care Team Role Provider Type Carina Hester DO Attending Provider Non-Staff Primary Care Provider Referring Provider Specialty: Family Practice Address: [address] [place] [address], [id number] Email: Plan Of Care PT-OP-T Assessment and Plan Start: 06/13/19 11:18 Freq: Status: Active Protocol: Document 06/13/19 11:15 [facility] (Rec: 06/13/19 15:00 EG [email or web address]) Physical Therapy Assessment Rehab Potential Rehabilitation Potential Good Evaluation Complexity Number of Personal Factors/Comorbidities 3 or More Number of Body Systems Impaired 4 or More Clinical Presentation at Evaluation Stable Impairments Impairments Activity Tolerance,Balance, Coordination,Functional Activities,Functional Mobility ,Pain,Posture,ROM,Soft Tissue Mobility,Vestibular Goals Six Impairment Dizziness with transfers Short Term Goal (STG) Patient will experience sway sensation 50% less of the time when moving in bed from supine>sit in 3 weeks. STG Duration 3 weeks Computer Systems Integrator Goal (LTG) Patient will no longer experience sway sensation when moving from supine to sit in 6 weeks. LTG Duration 6 weeks Five Impairment Balance at night Computer Systems Integrator Goal (LTG) In 6 weeks, patient will report having imbalanced feeling <25% of the time he is getting up in the middle of the night. LTG Duration 6 weeks Four Impairment Dizziness Questionnaire Index Care Home Goal (LTG) Patient will report less than 20% impairment on the DQI in 6 weeks. LTG Duration 6 weeks Assessment Summary Assessment Patient is a 68 year old male who reports to physical therapy due to the complaint of dizziness witht he majority of his symptoms occuring when moving from supine to sit in bed. He tested negative for BPPV and did not have significant dizziness during vestibular testing though increased testing should be done to determine role of vestibular system on his dizziness. Patient did have correlation of increased sway with cervical involvement. He will benefit from vestibular and cervical coordination training to help decrease neck involvement when moving gaze from side to side. Patient will also benefit from normalizing neck ROM. Physical Therapy Plan Frequency and Duration Frequency of Treatment 1x/Week Duration of Treatment 6 weeks Plan of Care Start Date 06/13/19 Plan of Care End Date 07/25/19 Therapeutic Interventions Therapeutic Interventions Coordination Training,Home Exercise Program,Joint Mobilizations,Manual Therapy, Neuromuscular Re-education, Patient/Caregiver Education, Self-Care/Home Management,Soft Tissue Mobilization,Taping, Therapeutic Activities, Therapeutic Exercises, Vestibular Rehabilitation Modalities Cold Pack/Ice Massage,Electric Stimulation,Hot Packs, Traction- Mechanical Next Visit Focus/Plan Next Note Type Treatment Note Next Visit Plan Performn more vestibular testing as well as increased balance testing Plan of Care Dates Plan of Care Start Date 06/13/19 Plan of Care End Date 07/25/19 I, Lilly Gross DPT, supervised all treatment performed by, and agreed with the plan of care, as performed by Dior Akbar, FLORIDALMA. Electronically Signed by: Lilly Gross, PT 06/13/19 [id number] Please Sign and Return: I have reviewed this Plan of Care and certify that the skilled therapy services above are required to meet the patient?s needs. Physician Signature Date Printed Name and Credentials Clinical Instructor Signature Printed Name and Credentials
--- NOTE | 2019-06-13 15:58 | PT.OIE ---
Current Diagnoses Cervicalgia (06/13/19) Unsteadiness on feet (06/13/19) Dizziness and giddiness (06/13/19) Past Medical History (Last Reviewed 03/27/19 @ 20:14 by Juliet Chan MD) Arthritis (Acute) HTN (hypertension) (Acute) Low back pain (Acute) Migraines (Acute) Numbness and tingling (Acute) Sciatica (Acute) Past Surgical History (Last Reviewed 03/27/19 @ 20:14 by Juliet Chan MD) Hx of tonsillectomy (Acute) Hx of umbilical hernia repair (Acute 06/16/17) S/P excision of ganglion cyst (Acute) Visit Care Team Role Provider Type Carina Hester DO Attending Provider Non-Staff Primary Care Provider Referring Provider Specialty: Family Practice Address: [address] [place] [address], [facility] Email: Physical Therapy Initial Evaluation PT-OP-A Visit Information Start: 06/13/19 11:18 Freq: Status: Active Protocol: Document 06/13/19 11:15 EG (Rec: 06/13/19 14:23 EG [email or web address]) Out-Patient Physical Therapy Visit Information Visit Information Visit Type Initial Evaluation Visit Start Time 11:15 Visit Stop Time 12:00 Total Visit Minutes 45 Visit Number 1 Number of GROCERY CLERK SELLING Visits 0 Evaluation Information Evaluation Date 06/13/19 PT-OP-B Current Condition Start: 06/13/19 11:18 Freq: Status: Active Protocol: Document 06/13/19 11:15 EG (Rec: 06/13/19 12:04 EG [id number]) Current Condition History of Current Condition Onset Date January 26 Current Complaints Dizziness when sitting up in bed/Imbalanced at night time History of Current Condition Patient reports to physical therapy due to a feeling of dizziness when sitting up in bed as well as a feeling of imbalance when walking at night. He thinks this all started happening January 26 when he got rotator cuff surgery. He reports falling asleep in a weird position and he could not mixing picker tender head off pillow when he woke up. He has a history of migraines that he says is controlled with half a dose of Sumatriptan. He has had history of dizziness which he reports he has handled in the past with the Alberto Maneuver. After further explanation, the patient seems to be performing Sutton-Daroff at home. He reports it is hard to isolate migraines and dizziness but at times he does have a sensation of dizziness with no migraines. Patient also reports that he has a hard time balancing at night and shadows bother him but he has adapted. His most frequent symptoms are that everytime he sits up at night, he experiences 3-5 seconds of spins to the Right and reports this as a slow spin. The first few steps out of bed, he has to mentally realign before continuing. Patient denies any recent falls. He also reports that sleeping on R side and rolling to back, he spins for 3-5 seconds. He thinks that this is a similar feeling of being on a boat. He reports that he did have a recent vision appointment and they said his vision looks great. Prior Treatments and Tests has had [place]-Hallpike from done from DO - per patient report, he had no nystagmus reported Been to ED for dizziness in past CT scan and per patient report did not show any significant impairments Treatment Goals Patient/Caregiver Goals Patient would like to not feel dizzy sitting up from bed and increase balance in the night Prior Functional Status Baseline Function- ADL's Independent Baseline Function- Mobility Independent Current Functional Impairments (Reported) Functional Limitations- Mobility/Gait Supine>Sit brings sense of sway to the R for 3-5 seconds Walking when dark/in the evening gives sense of imbalance Personal Factors Other Personal Factors That May Effect Arthritis Therapy/Recovery History of back pain High Blood Pressure Headaches Past spinal surgery Past R shoulder surgery PT-OP-C Subjective Start: 06/13/19 11:18 Freq: Status: Active Protocol: Document 06/13/19 11:15 EG (Rec: 06/13/19 14:25 EG [email or web address]) Patient Questionnaires ABC- Activity Specific Balance Confidence Scale ABC Score 76.9 ABC Functional Impairment 20 to <40% Impaired (Score 61- 80) Dizziness Handicap Inventory DHI Score 52 DHI Functional Impairment 40 to 59% Impaired (Score 40- 59) PT-OP-O Vestibular Start: 06/13/19 11:18 Freq: Status: Active Protocol: Document 06/13/19 11:15 EG (Rec: 06/13/19 15:00 EG [email or web address]) Vestibular Assessment Screening Tests Vestibular Artery Screen Negative Sharp-Oralia Test Negative Visual Testing Smooth Pursuits Horizontal Slight cervical movements with eye motion; no dizziness Smooth Pursuits Vertical Slight cervical movements with eye motion; no dizziness Saccades Horizontal - Saccades Vertical - Gaze Evoked Nystagmus With Fixation Negative Spontaneous Nystagmus Negative Positional Testing [place]-Hallpike Negative Left,Negative Right Rolling Test Negative Left,Negative Right Supine to Sit Positive Cervical Vertigo Test Positive Comments Vestibular Comments hard to disassociate cervical and eye movement with VORx1 - no dizziness reported patient's neck ROM is WNL but does have floating feeling when moving head from flexed position to neutral for 3 seconds. Patient had sensation of sway when returning from R rotation to neutral as well as a sway sensation when keeping head and performing thoracic rotation to the R. PT-OP-T Assessment and Plan Start: 06/13/19 11:18 Freq: Status: Active Protocol: Document 06/13/19 11:15 EG (Rec: 06/13/19 15:00 EG [email or web address]) Physical Therapy Assessment Rehab Potential Rehabilitation Potential Good Evaluation Complexity Number of Personal Factors/Comorbidities 3 or More Number of Body Systems Impaired 4 or More Clinical Presentation at Evaluation Stable Impairments Impairments Activity Tolerance,Balance, Coordination,Functional Activities,Functional Mobility ,Pain,Posture,ROM,Soft Tissue Mobility,Vestibular Goals Six Impairment Dizziness with transfers Short Term Goal (STG) Patient will experience sway sensation 50% less of the time when moving in bed from supine>sit in 3 weeks. STG Duration 3 weeks Baseball Winder Goal (LTG) Patient will no longer experience sway sensation when moving from supine to sit in 6 weeks. LTG Duration 6 weeks Five Impairment Balance at night Senior Care Goal (LTG) In 6 weeks, patient will report having imbalanced feeling <25% of the time he is getting up in the middle of the night. LTG Duration 6 weeks Four Impairment Dizziness Questionnaire Index Senior Care Goal (LTG) Patient will report less than 20% impairment on the DQI in 6 weeks. LTG Duration 6 weeks Assessment Summary Assessment Patient is a 68 year old male who reports to physical therapy due to the complaint of dizziness witht he majority of his symptoms occuring when moving from supine to sit in bed. He tested negative for BPPV and did not have significant dizziness during vestibular testing though increased testing should be done to determine role of vestibular system on his dizziness. Patient did have correlation of increased sway with cervical involvement. He will benefit from vestibular and cervical coordination training to help decrease neck involvement when moving gaze from side to side. Patient will also benefit from normalizing neck ROM. Physical Therapy Plan Frequency and Duration Frequency of Treatment 1x/Week Duration of Treatment 6 weeks Plan of Care Start Date 06/13/19 Plan of Care End Date 07/25/19 Therapeutic Interventions Therapeutic Interventions Coordination Training,Home Exercise Program,Joint Mobilizations,Manual Therapy, Neuromuscular Re-education, Patient/Caregiver Education, Self-Care/Home Management,Soft Tissue Mobilization,Taping, Therapeutic Activities, Therapeutic Exercises, Vestibular Rehabilitation Modalities Cold Pack/Ice Massage,Electric Stimulation,Hot Packs, Traction- Mechanical Next Visit Focus/Plan Next Note Type Treatment Note Next Visit Plan Performn more vestibular testing as well as increased balance testing ILilly DPT, supervised all treatment performed by, and agreed with the plan of care, as performed by FLORIDALMA Lai.
--- NOTE | 2019-06-18 10:52 | PT.OTN ---
Current Diagnoses Cervicalgia (06/18/19) Unsteadiness on feet (06/18/19) Dizziness and giddiness (06/18/19) Physical Therapy Treatment Note PT-OP-A Visit Information Start: 06/13/19 11:18 Freq: Status: Active Protocol: Document 06/18/19 09:45 AMB (Rec: 06/18/19 10:52 AMB [email or web address]) Out-Patient Physical Therapy Visit Information Visit Information Visit Type Treatment Note Visit Start Time 09:45 Visit Stop Time 10:30 Total Visit Minutes 45 Visit Number 2 PT-OP-B Current Condition Start: 06/13/19 11:18 Freq: Status: Active Protocol: Document 06/13/19 11:15 EG (Rec: 06/13/19 12:04 EG [id number]) Current Condition History of Current Condition Onset Date January 26 Current Complaints Dizziness when sitting up in bed/Imbalanced at night time History of Current Condition Patient reports to physical therapy due to a feeling of dizziness when sitting up in bed as well as a feeling of imbalance when walking at night. He thinks this all started happening January 26 when he got rotator cuff surgery. He reports falling asleep in a weird position and he could not car pick up driver head off pillow when he woke up. He has a history of migraines that he says is controlled with half a dose of Sumatriptan. He has had history of dizziness which he reports he has handled in the past with the Alberto Maneuver. After further explanation, the patient seems to be performing Sutton-Daroff at home. He reports it is hard to isolate migraines and dizziness but at times he does have a sensation of dizziness with no migraines. Patient also reports that he has a hard time balancing at night and shadows bother him but he has adapted. His most frequent symptoms are that everytime he sits up at night, he experiences 3-5 seconds of spins to the Right and reports this as a slow spin. The first few steps out of bed, he has to mentally realign before continuing. Patient denies any recent falls. He also reports that sleeping on R side and rolling to back, he spins for 3-5 seconds. He thinks that this is a similar feeling of being on a boat. He reports that he did have a recent vision appointment and they said his vision looks great. Prior Treatments and Tests has had [place]-Hallpike from done from DO - per patient report, he had no nystagmus reported Been to ED for dizziness in past CT scan and per patient report did not show any significant impairments Treatment Goals Patient/Caregiver Goals Patient would like to not feel dizzy sitting up from bed and increase balance in the night Prior Functional Status Baseline Function- ADL's Independent Baseline Function- Mobility Independent Current Functional Impairments (Reported) Functional Limitations- Mobility/Gait Supine>Sit brings sense of sway to the R for 3-5 seconds Walking when dark/in the evening gives sense of imbalance Personal Factors Other Personal Factors That May Effect Arthritis Therapy/Recovery History of back pain High Blood Pressure Headaches Past spinal surgery Past R shoulder surgery PT-OP-C Subjective Start: 06/13/19 11:18 Freq: Status: Active Protocol: Document 06/18/19 09:45 AMB (Rec: 06/18/19 10:52 AMB [email or web address]) OP-PT Subjective Patient Comments Patient Comments Idris reports his dizziness has been going ok between last appointment and today, with the exception of this morning, with looking up. PT-OP-O Vestibular Start: 06/13/19 11:18 Freq: Status: Active Protocol: Document 06/13/19 11:15 EG (Rec: 06/13/19 15:00 EG [email or web address]) Vestibular Assessment Screening Tests Vestibular Artery Screen Negative Sharp-Oralia Test Negative Visual Testing Smooth Pursuits Horizontal Slight cervical movements with eye motion; no dizziness Smooth Pursuits Vertical Slight cervical movements with eye motion; no dizziness Saccades Horizontal - Saccades Vertical - Gaze Evoked Nystagmus With Fixation Negative Spontaneous Nystagmus Negative Positional Testing [place]-Hallpike Negative Left,Negative Right Rolling Test Negative Left,Negative Right Supine to Sit Positive Cervical Vertigo Test Positive Comments Vestibular Comments hard to disassociate cervical and eye movement with VORx1 - no dizziness reported patient's neck ROM is WNL but does have floating feeling when moving head from flexed position to neutral for 3 seconds. Patient had sensation of sway when returning from R rotation to neutral as well as a sway sensation when keeping head and performing thoracic rotation to the R. PT-OP-Q Treatments Start: 06/13/19 11:18 Freq: Status: Active Protocol: Document 06/18/19 09:45 AMB (Rec: 06/18/19 10:52 AMB [email or web address]) Neuro Re-Education Treatment Balance Activities 3 Details cervical proprioception Comments overshooting when returning from L, overall challenging. 2 Details DVA test Comments 3 line change- pt symptomatic 1 Details VOR1 horizontal and vertical with changing foot positions Reps/Duration 15 min Comments extensive ed in how to progress independently with head turning speed and foot positioning. PT-OP-T Assessment and Plan Start: 06/13/19 11:18 Freq: Status: Active Protocol: Document 06/18/19 09:45 AMB (Rec: 06/18/19 10:52 AMB [email or web address]) Physical Therapy Assessment Assessment Summary Assessment Patient was symptomatic with DVA testing and slightly with VOR exercises. Encouraged to continue with exercises and provided instruction in how to progress, as we are unsure how much we will be able to continue due to the monge virus. Physical Therapy Plan Frequency and Duration Frequency of Treatment 1x/Week Duration of Treatment 6 weeks Plan of Care Start Date 06/13/19 Plan of Care End Date 07/25/19 Next Visit Focus/Plan Next Note Type Treatment Note Next Visit Plan Balance testing- pt with difficulty with eyes closed/
--- NOTE | 2019-09-27 14:26 | PT.OPDS ---
Current Diagnoses Cervicalgia (06/18/19) Unsteadiness on feet (06/18/19) Dizziness and giddiness (06/18/19) Visit Care Team Role Provider Type Carina Hester DO Attending Provider Non-Staff Primary Care Provider Referring Provider Specialty: Family Practice Address: [address] [place] [address], [id number] Email: Visit Number Visit Number 2 Discharge Summary PT-OP-B Current Condition Start: 06/13/19 11:18 Freq: Status: Active Protocol: Document 06/13/19 11:15 EG (Rec: 06/13/19 12:04 EG [id number]) Current Condition History of Current Condition Onset Date January 26 Current Complaints Dizziness when sitting up in bed/Imbalanced at night time History of Current Condition Patient reports to physical therapy due to a feeling of dizziness when sitting up in bed as well as a feeling of imbalance when walking at night. He thinks this all started happening January 26 when he got rotator cuff surgery. He reports falling asleep in a weird position and he could not bean picker head off pillow when he woke up. He has a history of migraines that he says is controlled with half a dose of Sumatriptan. He has had history of dizziness which he reports he has handled in the past with the Alberto Maneuver. After further explanation, the patient seems to be performing Sutton-Daroff at home. He reports it is hard to isolate migraines and dizziness but at times he does have a sensation of dizziness with no migraines. Patient also reports that he has a hard time balancing at night and shadows bother him but he has adapted. His most frequent symptoms are that everytime he sits up at night, he experiences 3-5 seconds of spins to the Right and reports this as a slow spin. The first few steps out of bed, he has to mentally realign before continuing. Patient denies any recent falls. He also reports that sleeping on R side and rolling to back, he spins for 3-5 seconds. He thinks that this is a similar feeling of being on a boat. He reports that he did have a recent vision appointment and they said his vision looks great. Prior Treatments and Tests has had [place]-Hallpike from done from DO - per patient report, he had no nystagmus reported Been to ED for dizziness in past CT scan and per patient report did not show any significant impairments Treatment Goals Patient/Caregiver Goals Patient would like to not feel dizzy sitting up from bed and increase balance in the night Prior Functional Status Baseline Function- ADL's Independent Baseline Function- Mobility Independent Current Functional Impairments (Reported) Functional Limitations- Mobility/Gait Supine>Sit brings sense of sway to the R for 3-5 seconds Walking when dark/in the evening gives sense of imbalance Personal Factors Other Personal Factors That May Effect Arthritis Therapy/Recovery History of back pain High Blood Pressure Headaches Past spinal surgery Past R shoulder surgery PT-OP-C Subjective Start: 06/13/19 11:18 Freq: Status: Active Protocol: Document 06/18/19 09:45 AMB (Rec: 06/18/19 10:52 AMB [email or web address]) OP-PT Subjective Patient Comments Patient Comments Idris reports his dizziness has been going ok between last appointment and today, with the exception of this morning, with looking up. PT-OP-O Vestibular Start: 06/13/19 11:18 Freq: Status: Active Protocol: Document 06/13/19 11:15 EG (Rec: 06/13/19 15:00 EG [email or web address]) Vestibular Assessment Screening Tests Vestibular Artery Screen Negative Sharp-Oralia Test Negative Visual Testing Smooth Pursuits Horizontal Slight cervical movements with eye motion; no dizziness Smooth Pursuits Vertical Slight cervical movements with eye motion; no dizziness Saccades Horizontal - Saccades Vertical - Gaze Evoked Nystagmus With Fixation Negative Spontaneous Nystagmus Negative Positional Testing [place]-Hallpike Negative Left,Negative Right Rolling Test Negative Left,Negative Right Supine to Sit Positive Cervical Vertigo Test Positive Comments Vestibular Comments hard to disassociate cervical and eye movement with VORx1 - no dizziness reported patient's neck ROM is WNL but does have floating feeling when moving head from flexed position to neutral for 3 seconds. Patient had sensation of sway when returning from R rotation to neutral as well as a sway sensation when keeping head and performing thoracic rotation to the R. PT-OP-T Assessment and Plan Start: 06/13/19 11:18 Freq: Status: Active Protocol: Document 09/27/19 14:25 MB (Rec: 09/27/19 14:26 MB [id number]) Physical Therapy Plan Discharge Physical Therapy Discharge Comments D/c this PT course, pt has a new order and need to open new case.
== END 2019-10-02 09:08 ==
LOC: PHYS 09:45
PROVIDERS: PCP Family Medicine; Referring Provider Family Medicine; Visit Provider Family Medicine
DX: R42 Dizziness and giddiness (principal); R26.81 Unsteadiness on feet; M54.2 Cervicalgia
CPT/HCPCS: 97112; 97161

== ENCOUNTER → 2020-01-16 08:27 | Outpatient (CLI) | payer OTHER, MEDICAID, SELFPAY ==
[2020-01-16 10:10] LABS: Cholesterol 217 mg/dL (140-199); HDL Cholesterol 45 mg/dL (40-60); LDL Cholesterol Calculated 131 mg/dL (<100); Triglycerides 206 mg/dL (35-150)
== END ==
PROVIDERS: PCP Student in an Organized Health Care Education/Training Program; Referring Provider Family Medicine; Visit Provider Family Medicine
DX: I10 Essential (primary) hypertension (principal); Z12.11 Encounter for screening for malignant neoplasm of colon
CPT/HCPCS: 36415; 80061; 82274

== ENCOUNTER → 2020-07-03 14:09 | Outpatient (CLI) | payer MEDICARE, SELFPAY ==
[2020-07-03] MEDS: COVID-19 VACC, Ad26(JANSSEN)/PF 0.5 ML IM (14:19)
== END ==
PROVIDERS: PCP Student in an Organized Health Care Education/Training Program; Visit Provider Internal Medicine
DX: Z23 Encounter for immunization (principal)
CPT/HCPCS: 0031A; 91303

== ENCOUNTER 2020-09-08 10:30 | Outpatient (RCR) | payer OTHER, MEDICAID, SELFPAY ==
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
--- NOTE | 2019-10-18 17:46 | PT.OPPOC ---
Physical, Occupational & Speech Therapy At [facility] Current Diagnoses Lumbago with sciatica, left side (10/18/19) Difficulty in walking, not elsewhere classified (10/18/19) Abnormal posture (10/18/19) Weakness (10/18/19) Visit Care Team Role Provider Type Kathrine Zuniga DO Attending Provider Non-Staff Primary Care Provider Referring Provider Specialty: Family Practice Address: [address] [place] [address], [facility] Email: Plan Of Care PT-OP-T Assessment and Plan Start: 10/17/19 17:52 Freq: Status: Active Protocol: Document 10/18/19 15:17 [facility] (Rec: 10/18/19 16:03 [facility] [id number]) Physical Therapy Assessment Rehab Potential Rehabilitation Potential Good Evaluation Complexity Number of Personal Factors/Comorbidities 3 or More Number of Body Systems Impaired 4 or More Clinical Presentation at Evaluation Evolving Impairments Impairments Activity Tolerance,Balance, Functional Activities, Functional Mobility,Gait,Pain, Posture,ROM,Soft Tissue Mobility,Strength Goals Seven Assisted Goal (LTG) pt will be able to do at least 5 min of stair climbing machine in order to show ability to do stairs without inc pain. LTG Duration 12/19/19 Six Impairment strength Short Term Goal (STG) Pt will be indep with HEP STG Duration 11/18/19 Curriculum Consultant Goal (LTG) Pt will imrpove LE strength to at least 4+/5 in all planes and LPM to 3/5 in all planes to show improved stability to allow pt to do typical housework and workouts. LTG Duration 12/19/19 Five Impairment walking Assisted Goal (LTG) Pt will be able to ambulate at least 1 mile without pain greater than 6/10 to allow pt to return to walking the dog. LTG Duration 12/19/19 Four Impairment activity tolerance Short Term Goal (STG) Pt will be able to tolerate 30 min of mixed aerobic activity without severe pain in order to cont to work on weight loss to dec load for back. STG Duration 11/18/19 Assisted Goal (LTG) Pt will be able to tolerate 45 min of mixed aerobic activity without severe pain in order to cont to work on weight loss to dec load for back. LTG Duration 12/19/19 Assessment Summary Assessment Pt presents with worsening of chronic LBP s/p sugurgy last October which he never completed significant rehab for d/t R shoulder surgery. He now is showing L leg weakness and positive neutral tension testing along with instances of LLE giving out, which is a new symptom. He has dec core stability, impaired posture, impaired gait and dec LE strength which causes imbalance during gait. He would benefit from skilled PT in order to progress to further return to his typical daily activities with less pain. Physical Therapy Plan Frequency and Duration Frequency of Treatment 1-2x/week Duration of Treatment 2 months Plan of Care Start Date 10/18/19 Plan of Care End Date 12/19/19 Therapeutic Interventions Therapeutic Interventions Aquatic Therapy,Balance Training,Gait Training,Home Exercise Program,Joint Mobilizations,Manual Therapy, Neuromuscular Re-education, Patient/Caregiver Education, Self-Care/Home Management,Soft Tissue Mobilization,Taping, Therapeutic Activities, Therapeutic Exercises Modalities Cold Pack/Ice Massage,Electric Stimulation,Hot Packs, Infrared Therapy,Iontophoresis ,Traction- Mechanical, Ultrasound Next Visit Focus/Plan Next Note Type Treatment Note Plan of Care Dates Plan of Care Start Date 10/18/19 Plan of Care End Date 12/19/19 Electronically Signed by: Cristina Lee, PT 10/18/19 [id number] Please Sign and Return: I have reviewed this Plan of Care and certify that the skilled therapy services above are required to meet the patient?s needs. Physician Signature Date Printed Name and Credentials Clinical Instructor Signature Printed Name and Credentials
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
--- NOTE | 2019-12-18 14:01 | PT.OPPOC ---
Physical, Occupational & Speech Therapy At [facility] Current Diagnoses Lumbago with sciatica, left side (12/18/19) Difficulty in walking, not elsewhere classified (12/18/19) Abnormal posture (12/18/19) Weakness (12/18/19) Visit Care Team Role Provider Type Kathrine Zuniga DO Attending Provider Non-Staff Primary Care Provider Referring Provider Specialty: Family Practice Address: [address] [place] [address], Formerly [facility], [facility]–1983 Email: Plan Of Care PT-OP-T Assessment and Plan Start: 10/17/19 17:52 Freq: Status: Active Protocol: Document 12/18/19 13:00 [facility] (Rec: 12/18/19 14:01 [facility] [id number]) Physical Therapy Assessment Goals Seven Skilled Nursing Goal (LTG) pt will be able to do at least 5 min of stair climbing machine in order to show ability to do stairs without inc pain. 12/17-has not tried yet LTG Duration 02/17/20 Six Impairment strength Short Term Goal (STG) Pt will be indep with HEP STG Duration achieved Forensic Chemist Goal (LTG) Pt will imrpove LE strength to at least 4+/5 in all planes and LPM to 3/5 in all planes to show improved stability to allow pt to do typical housework and workouts. 12/17-improving LTG Duration 02/16 Five Impairment walking Forensic Chemist Goal (LTG) Pt will be able to ambulate at least 1 mile without pain greater than 6/10 to allow pt to return to walking the dog. 12/17-has done some 2 mile walks but has not walked dog during them LTG Duration 01/17/20 Four Impairment activity tolerance Short Term Goal (STG) Pt will be able to tolerate 30 min of mixed aerobic activity without severe pain in order to cont to work on weight loss to dec load for back. 12/17-pt does bike and treadmill for 20min-30 min STG Duration achieved Forensic Chemist Goal (LTG) Pt will be able to tolerate 45 min of mixed aerobic activity without severe pain in order to cont to work on weight loss to dec load for back. LTG Duration 02/18/20 Assessment Summary Assessment Pt is imprvoing his functional ability and is making good progress towards his goals with improved strength and increasing ability to walk and exercise. Pt is improving with performacne of core exercises with less cueing. Physical Therapy Plan Frequency and Duration Frequency of Treatment 1-2x/week Duration of Treatment 2 months Plan of Care Start Date 12/18/19 Plan of Care End Date 02/17/20 Therapeutic Interventions Therapeutic Interventions Aquatic Therapy,Balance Training,Gait Training,Home Exercise Program,Joint Mobilizations,Manual Therapy, Neuromuscular Re-education, Patient/Caregiver Education, Self-Care/Home Management,Soft Tissue Mobilization,Taping, Therapeutic Activities, Therapeutic Exercises Modalities Cold Pack/Ice Massage,Electric Stimulation,Hot Packs, Infrared Therapy,Iontophoresis ,Traction- Mechanical, Ultrasound Next Visit Focus/Plan Next Note Type Treatment Note Next Visit Plan work on core stability, manual treatment for hip and lumbo sacral mobility, gait mecahnics Plan of Care Dates Plan of Care Start Date 12/18/19 Plan of Care End Date 02/17/20 Electronically Signed by: Cristina Lee, PT 12/18/19 [id number] Please Sign and Return: I have reviewed this Plan of Care and certify that the skilled therapy services above are required to meet the patient?s needs. Physician Signature Date Printed Name and Credentials Clinical Instructor Signature Printed Name and Credentials
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
--- NOTE | 2020-02-13 12:14 | PT.OPPOC ---
Physical, Occupational & Speech Therapy At [facility] Current Diagnoses Lumbago with sciatica, left side (02/13/20) Difficulty in walking, not elsewhere classified (02/13/20) Abnormal posture (02/13/20) Weakness (02/13/20) Visit Care Team Role Provider Type Kathrine Zuniga DO Attending Provider Non-Staff Primary Care Provider Referring Provider Specialty: Family Practice Address: [address] [place] [address], [facility], [facility] Email: Plan Of Care PT-OP-T Assessment and Plan Start: 10/17/19 17:52 Freq: Status: Active Protocol: Document 02/13/20 11:19 [facility] (Rec: 02/13/20 12:13 [facility] [id number]) Physical Therapy Assessment Goals Eight Impairment balance on foam:15 sec NBOS pain ; firm NBOS EC 3 sec Short Term Goal (STG) Pt will be able to stand on foam for 30 sec in NBOS without pain or LOB to show improved stability on uneven surfaces STG Duration 03/14/20 Senior Living Goal (LTG) Pt will be able to inspector machine cut glass NBOS On firm surface for 10 sec w/EC to show improved balance LTG Duration 04/14/20 Seven Government Professor Goal (LTG) pt will be able to do at least 5 min of stair climbing machine in order to show ability to do stairs without inc pain. 12/17-has not tried yet 02/12-did 10 floors a week ago but has not done again or consistantly d/t pain LTG Duration 04/14/20 Six Impairment strength Short Term Goal (STG) Pt will be indep with HEP STG Duration achieved Government Professor Goal (LTG) Pt will imrpove LE strength to at least 4+/5 in all planes and LPM to 3/5 in all planes to show improved stability to allow pt to do typical housework and workouts. 12/17-improving LTG Duration 02/16 Five Impairment walking Government Professor Goal (LTG) Pt will be able to ambulate at least 1 mile without pain greater than 6/10 to allow pt to return to walking the dog. 12/17-has done some 2 mile walks but has not walked dog during them LTG Duration achieved Four Impairment activity tolerance Short Term Goal (STG) Pt will be able to tolerate 30 min of mixed aerobic activity without severe pain in order to cont to work on weight loss to dec load for back. 12/17-pt does bike and treadmill for 20min-30 min STG Duration achieved Government Professor Goal (LTG) Pt will be able to tolerate 45 min of mixed aerobic activity without severe pain in order to cont to work on weight loss to dec load for back. 02/12-able to do 30 min LTG Duration 04/14/20 Assessment Summary Assessment Pt has made gradual improvements iwth PT despite some occ bouts of inc pain. Heh as done some hikes and has doen some outdoor walking which is an improvment. Pt would benefit from cont PT to cont tow ork on progression of LE & core stability. Physical Therapy Plan Frequency and Duration Frequency of Treatment 1-2x/week Duration of Treatment 2 months Plan of Care Start Date 02/13/20 Plan of Care End Date 04/14/20 Therapeutic Interventions Therapeutic Interventions Aquatic Therapy,Balance Training,Gait Training,Home Exercise Program,Joint Mobilizations,Manual Therapy, Neuromuscular Re-education, Patient/Caregiver Education, Self-Care/Home Management,Soft Tissue Mobilization,Taping, Therapeutic Activities, Therapeutic Exercises Modalities Cold Pack/Ice Massage,Electric Stimulation,Hot Packs, Infrared Therapy,Iontophoresis ,Traction- Mechanical, Ultrasound Next Visit Focus/Plan Next Note Type Treatment Note Next Visit Plan work on core stability, manual treatment for hip and lumbo sacral mobility, gait mecahnics Plan of Care Dates Plan of Care Start Date 02/13/20 Plan of Care End Date 04/14/20 Electronically Signed by: Cristina Lee, PT 02/13/20 [id number] Please Sign and Return: I have reviewed this Plan of Care and certify that the skilled therapy services above are required to meet the patient?s needs. Physician Signature Date Printed Name and Credentials Clinical Instructor Signature Printed Name and Credentials
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
--- NOTE | 2020-05-07 18:04 | PT.OPPOC ---
Physical, Occupational & Speech Therapy At [facility] Current Diagnoses Lumbago with sciatica, left side (05/07/20) Difficulty in walking, not elsewhere classified (05/07/20) Abnormal posture (05/07/20) Weakness (05/07/20) Visit Care Team Role Provider Type Kathrine Zuniga DO Attending Provider Non-Staff Primary Care Provider Referring Provider Specialty: Family Practice Address: [address] [place] [address], [id number] Email: Plan Of Care PT-OP-T Assessment and Plan Start: 10/17/19 17:52 Freq: Status: Active Protocol: Document 05/07/20 15:15 [facility] (Rec: 05/07/20 16:05 [facility] [id number]) Physical Therapy Assessment Goals Eight Impairment balance on foam:15 sec NBOS pain ; firm NBOS EC 3 sec Short Term Goal (STG) Pt will be able to stand on foam for 30 sec in NBOS without pain or LOB to show improved stability on uneven surfaces STG Duration achieved Usp Goal (LTG) Pt will be able to spent grain dryer NBOS On firm surface for 10 sec w/EC to show improved balance 05/07-consistantly 3-5 sec LTG Duration 07/05/20 Seven Usp Goal (LTG) pt will be able to do at least 5 min of stair climbing machine in order to show ability to do stairs without inc pain. 12/17-has not tried yet 02/12-did 10 floors a week ago but has not done again or consistantly d/t pain 05/07-has not been on the stair climber d/t surgery & procedures recently LTG Duration 07/05 Six Impairment strength Short Term Goal (STG) Pt will be indep with HEP STG Duration achieved Delivery Driver/Supervisor Goal (LTG) Pt will imrpove LE strength to at least 4+/5 in all planes and LPM to 3/5 in all planes to show improved stability to allow pt to do typical housework and workouts. 12/17-improving 05/07-no major change except dec hip flex LTG Duration 07/05/20 Five Impairment walking Delivery Driver/Supervisor Goal (LTG) Pt will be able to ambulate at least 1 mile without pain greater than 5/10 to allow pt to return to walking the dog. LTG Duration 07/05/20 Four Impairment activity tolerance Short Term Goal (STG) Pt will be able to tolerate 30 min of mixed aerobic activity without severe pain in order to cont to work on weight loss to dec load for back. 12/17-pt does bike and treadmill for 20min-30 min STG Duration achieved Delivery Driver/Supervisor Goal (LTG) Pt will be able to tolerate 45 min of mixed aerobic activity without severe pain in order to cont to work on weight loss to dec load for back. 02/12-able to do 30 min 05/07-doing less than 15 min now d/t procedures & recovery, was doing 30 min prior LTG Duration 07/05/20 Assessment Summary Assessment Pt has made only small amounts of progress since last plan of care, but has had 2 procedures over the past month which is likely affecting strength, especially core strength as he still has healing incisions from benign lipoma removals and had an ablation. He has shown imrpovements in balance though . Reset walking goal d/t pt unable to do as long of walks since procedures. He would benefit from skilled PT to work on his gait mechanis, core stability & LE strength & thoracolumbar mobility. Physical Therapy Plan Frequency and Duration Frequency of Treatment 1-2x/week Duration of Treatment 2 months Plan of Care Start Date 05/07/20 Plan of Care End Date 07/05/20 Therapeutic Interventions Therapeutic Interventions Aquatic Therapy,Balance Training,Gait Training,Home Exercise Program,Joint Mobilizations,Manual Therapy, Neuromuscular Re-education, Patient/Caregiver Education, Self-Care/Home Management,Soft Tissue Mobilization,Taping, Therapeutic Activities, Therapeutic Exercises Modalities Cold Pack/Ice Massage,Electric Stimulation,Hot Packs, Infrared Therapy,Iontophoresis ,Traction- Mechanical, Ultrasound Next Visit Focus/Plan Next Note Type Treatment Note Next Visit Plan cont to work on blaance, core & lower extremity strength Plan of Care Dates Plan of Care Start Date 05/07/20 Plan of Care End Date 07/05/20 Electronically Signed by: Cristina Lee, PT 05/07/20 [id number] Please Sign and Return: I have reviewed this Plan of Care and certify that the skilled therapy services above are required to meet the patient?s needs. Physician Signature Date Printed Name and Credentials Clinical Instructor Signature Printed Name and Credentials
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
--- NOTE | 2020-07-03 14:12 | PT.OPPOC ---
Physical, Occupational & Speech Therapy At [facility] Current Diagnoses Lumbago with sciatica, left side (07/03/20) Difficulty in walking, not elsewhere classified (07/03/20) Abnormal posture (07/03/20) Weakness (07/03/20) Visit Care Team Role Provider Type Kathrine Zuniga DO Attending Provider Non-Staff Primary Care Provider Referring Provider Specialty: Family Practice Address: [address] [place] [address], [id number] Email: Plan Of Care PT-OP-T Assessment and Plan Start: 10/17/19 17:52 Freq: Status: Active Protocol: Document 07/03/20 13:03 [facility] (Rec: 07/03/20 14:12 [facility] [id number]) Physical Therapy Assessment Goals pain Short Term Goal (STG) Pt will be able to do 1 hour of aerobics with mixed machines and walking without inc pain more than /10. STG Duration 08/02/20 Skilled Nursing Goal (LTG) Pt will be able to amb 2-3 miles without increasing pain more than 6/10 LTG Duration 09/02/20 Eight Impairment balance on foam:15 sec NBOS pain ; firm NBOS EC 3 sec Short Term Goal (STG) Pt will be able to stand on foam for 30 sec in NBOS without pain or LOB to show improved stability on uneven surfaces STG Duration achieved Skilled Nursing Goal (LTG) Pt will be able to casting cleaner NBOS On firm surface for 10 sec w/EC to show improved balance 05/07-consistantly 3-5 sec LTG Duration achieved to 15 sec Seven Biomedical Field Service Engineer Goal (LTG) pt will be able to do at least 5 min of stair climbing machine in order to show ability to do stairs without inc pain. 12/17-has not tried yet 02/12-did 10 floors a week ago but has not done again or consistantly d/t pain /-has not been on the stair climber d/t surgery & procedures recently LTG Duration achieved to 12 floors at 7.5 min Six Impairment strength Short Term Goal (STG) Pt will be indep with HEP STG Duration achieved Skilled Nursing Goal (LTG) Pt will imrpove LE strength to at least 4+/5 in all planes and LPM to 3/5 in all planes to show improved stability to allow pt to do typical housework and workouts. 12/17-improving 2/10-no major change except dec hip flex 07/03-improved LPM LTG Duration 09/04/20 Five Impairment walking Biomedical Field Service Engineer Goal (LTG) Pt will be able to ambulate at least 1 mile without pain greater than 5/10 to allow pt to return to walking the dog. 07/03-able to walk 1 mile but goes from 5-7/10-oxy used to bring it back down LTG Duration 09/04/20 Four Impairment activity tolerance Short Term Goal (STG) Pt will be able to tolerate 30 min of mixed aerobic activity without severe pain in order to cont to work on weight loss to dec load for back. 12/17-pt does bike and treadmill for 20min-30 min STG Duration achieved Skilled Nursing Goal (LTG) Pt will be able to tolerate 45 min of mixed aerobic activity without severe pain in order to cont to work on weight loss to dec load for back. 02/12-able to do 30 min /-doing less than 15 min now d/t procedures & recovery, was doing 30 min prior LTG Duration achieved Assessment Summary Assessment Pt is doing well with progression of balance, activity tolerance, and core/ LE strength and is progressing towards his goals well. He would benefit from cont PT to cont to inc funcitonal activity tolerance. Physical Therapy Plan Frequency and Duration Frequency of Treatment 1x/Week Duration of Treatment 2 months Plan of Care Start Date 07/03/20 Plan of Care End Date 09/02/20 Therapeutic Interventions Therapeutic Interventions Aquatic Therapy,Balance Training,Gait Training,Home Exercise Program,Joint Mobilizations,Manual Therapy, Neuromuscular Re-education, Patient/Caregiver Education, Self-Care/Home Management,Soft Tissue Mobilization,Taping, Therapeutic Activities, Therapeutic Exercises Modalities Cold Pack/Ice Massage,Electric Stimulation,Hot Packs, Infrared Therapy,Iontophoresis ,Traction- Mechanical, Ultrasound Next Visit Focus/Plan Next Note Type Treatment Note Next Visit Plan cont to work on blaance, core & lower extremity strength Plan of Care Dates Plan of Care Start Date 07/03/20 Plan of Care End Date 09/02/20 Electronically Signed by: Cristina Lee, PT 07/03/20 1412 Please Sign and Return: I have reviewed this Plan of Care and certify that the skilled therapy services above are required to meet the patient?s needs. Physician Signature Date Printed Name and Credentials Clinical Instructor Signature Printed Name and Credentials
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
--- NOTE | 2020-08-12 16:05 | PT.OPPOC ---
Physical, Occupational & Speech Therapy At [facility] Current Diagnoses Lumbago with sciatica, left side (08/12/20) Difficulty in walking, not elsewhere classified (08/12/20) Abnormal posture (08/12/20) Weakness (08/12/20) Visit Care Team Role Provider Type Kathrine Zuniga DO Attending Provider Non-Staff Primary Care Provider Referring Provider Specialty: Family Practice Address: [address] [place] [address], [id number] Email: Plan Of Care PT-OP-T Assessment and Plan Start: 10/17/19 17:52 Freq: Status: Active Protocol: Document 08/12/20 14:29 [facility] (Rec: 08/12/20 15:20 [facility] [id number]) Physical Therapy Assessment Goals pain Short Term Goal (STG) Pt will be able to do 1 hour of aerobics with mixed machines and walking without inc pain more than 08/04. 08/12-30 min consistantly STG Duration 09/12/20 Upholstery Technician Goal (LTG) Pt will be able to amb 2-3 miles without increasing pain more than 09/04 08/12-max 1.5 miles at 7/10 LTG Duration 10/12 Eight Impairment balance on foam:15 sec NBOS pain ; firm NBOS EC 3 sec Short Term Goal (STG) Pt will be able to stand on foam for 30 sec in NBOS without pain or LOB to show improved stability on uneven surfaces STG Duration achieved Penitentiary Goal (LTG) Pt will be able to veterinary livestock inspector NBOS On firm surface for 10 sec w/EC to show improved balance 05/07-consistantly 3-5 sec LTG Duration achieved to 15 sec Seven Penitentiary Goal (LTG) pt will be able to do at least 5 min of stair climbing machine in order to show ability to do stairs without inc pain. 12/17-has not tried yet 02/12-did 10 floors a week ago but has not done again or consistantly d/t pain /-has not been on the stair climber d/t surgery & procedures recently LTG Duration achieved to 12 floors at 7.5 min Six Impairment strength Short Term Goal (STG) Pt will be indep with HEP STG Duration achieved Upholstery Technician Goal (LTG) Pt will imrpove LE strength to at least 4+/5 in all planes and LPM to 3/5 in all planes to show improved stability to allow pt to do typical housework and workouts. 12/17-improving 2/10-no major change except dec hip flex 07/03-improved LPM LTG Duration 10/12/20 Five Impairment walking Penitentiary Goal (LTG) Pt will be able to ambulate at least 1 mile without pain greater than 5/10 to allow pt to return to walking the dog. 07/03-able to walk 1 mile but goes from 5-10/04-oxy used to bring it back down 08/12-able to walk mile LTG Duration achieved Four Impairment activity tolerance Short Term Goal (STG) Pt will be able to tolerate 30 min of mixed aerobic activity without severe pain in order to cont to work on weight loss to dec load for back. 12/17-pt does bike and treadmill for 20min-30 min STG Duration achieved Penitentiary Goal (LTG) Pt will be able to tolerate 45 min of mixed aerobic activity without severe pain in order to cont to work on weight loss to dec load for back. 02/12-able to do 30 min 05/07-doing less than 15 min now d/t procedures & recovery, was doing 30 min prior LTG Duration achieved Assessment Summary Assessment Pt is getting more towards plateau now and plan to have ablation process started next week. Plan for PT 1 more visit to solitify [facility] and plan for dc next session Physical Therapy Plan Frequency and Duration Frequency of Treatment 1x/Week Duration of Treatment 1 month Plan of Care Start Date 08/12/20 Plan of Care End Date 09/12/20 Therapeutic Interventions Therapeutic Interventions Aquatic Therapy,Balance Training,Gait Training,Home Exercise Program,Joint Mobilizations,Manual Therapy, Neuromuscular Re-education, Patient/Caregiver Education, Self-Care/Home Management,Soft Tissue Mobilization,Taping, Therapeutic Activities, Therapeutic Exercises Modalities Cold Pack/Ice Massage,Electric Stimulation,Hot Packs, Infrared Therapy,Iontophoresis ,Traction- Mechanical, Ultrasound Next Visit Focus/Plan Next Note Type Treatment Note Next Visit Plan cont to work on blaance, core & lower extremity strength Plan of Care Dates Plan of Care Start Date 08/12/20 Plan of Care End Date 09/12/20 Electronically Signed by: Cristina Lee, PT 08/12/20 1605 Please Sign and Return: I have reviewed this Plan of Care and certify that the skilled therapy services above are required to meet the patient?s needs. Physician Signature Date Printed Name and Credentials Clinical Instructor Signature Printed Name and Credentials
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
== END 2020-09-09 07:54 | disposition home or self-care (01) ==
LOC: PHYS 10:30
PROVIDERS: PCP Student in an Organized Health Care Education/Training Program; Referring Provider Student in an Organized Health Care Education/Training Program; Visit Provider Student in an Organized Health Care Education/Training Program
DX: M54.42 Lumbago with sciatica, left side (principal); R53.1 Weakness; R29.3 Abnormal posture; R26.2 Difficulty in walking, not elsewhere classified
CPT/HCPCS: 97010; 97014; 97110; 97112; 97116; 97140; 97162; 97530; 97535; G0283

== ENCOUNTER → 2021-02-24 14:00 | Outpatient (CLI) | payer OTHER, SELFPAY ==
[2021-02-24 15:01] LABS: Add Manual Diff / Slide Review NO; Basophils Absolute Auto 0 /uL (0-100); Basophils Percent Auto 0.4 % (0-2); Eosinophils Absolute Auto 100 /uL (0-450); Eosinophils Percent Auto 0.7 % (2-4); Hematocrit 43.3 % (41-53); Hemoglobin 14.8 g/dL (13.5-17.5); Lymphocytes Absolute Auto 2600 /uL (1100-4500); Lymphocytes Percent Auto 29.3 % (25-40); Mean Corpuscular HGB Conc 34.3 % (30-36); Mean Corpuscular Hemoglobin 30.4 PG (26-34); Mean Corpuscular Volume 88.8 fL (80-100); Monocytes Absolute Auto 800 /uL (0-900); Monocytes Percent Auto 8.6 % (3-14); Neutrophils Absolute Auto 5500 /uL (1500-7000); Platelet Count 251 X10^3/uL (150-400); Red Blood Cell Count 4.87 X10^6/uL (4.5-5.9); Red Cell Distribution Width 13.7 % (11.6-14.8); White Blood Cell Count 8.9 X10^3/uL (4.5-11.0)
[2021-02-24 15:39] LABS: Alanine Aminotransferase 44 IU/L (<50); Albumin 4.3 g/dL (3.5-5.0); Albumin Globulin Ratio 1.5 (1.0-2.8); Alkaline Phosphatase 60 U/L (38-126); Aspartate Aminotransferase 47 IU/L (17-59); BUN Creatinine Ratio 37.8 (6-22); Bilirubin Total 0.6 mg/dL (0.2-1.3); Blood Urea Nitrogen 31 mg/dL (9-20); Calcium 9.8 mg/dL (8.4-10.2); Carbon Dioxide 25 mmol/L (22-32); Chloride 103 mmol/L (98-107); Cholesterol 190 mg/dL (140-199); Estimated Glomerular Filt Rate > 60.0 mL/min (>60); Globulin 2.8 g/dL (1.7-4.1); Glucose 91 mg/dL (80-110); HDL Cholesterol 44 mg/dL (40-60); HEMOLYSIS 17 (0-50); LDL Cholesterol Calculated 98 mg/dL (<100); Potassium 4.6 mmol/L (3.4-5.1); Sodium 137 mmol/L (137-145); Total Protein 7.1 g/dL (6.3-8.2); Triglycerides 238 mg/dL (35-150)
[2021-02-24 16:05] LABS: Creatinine Urine Random 173.6 mg/dL
[2021-02-24 16:10] LABS: Microalbumi Creatinin Ratio Ur 15.5 ug/mg CR (<30); Microalbumin Urine Random 2.7 mg/dL (0-1.6)
== END ==
PROVIDERS: PCP Family Medicine; Referring Provider Family Medicine; Visit Provider Family Medicine
DX: E78.2 Mixed hyperlipidemia (principal); I10 Essential (primary) hypertension
CPT/HCPCS: 36415; 80053; 80061; 82043; 82570; 85025

== ENCOUNTER 2021-06-02 13:00 | Outpatient (RCR) | payer OTHER, MEDICAID, SELFPAY ==
--- NOTE | 2021-01-22 15:50 | PT.OIE ---
Current Diagnoses Spondylosis without myelopathy or radiculopathy, thoracic region (01/22/21) Spinal stenosis, lumbar region with neurogenic claudication (01/22/21) Muscle weakness (generalized) (01/22/21) Difficulty in walking, not elsewhere classified (01/22/21) Abnormal posture (01/22/21) Past Medical History (Last Reviewed 04/16/20 @ 16:44 by Rafael Ballard MD) Arthritis History of back surgery HTN (hypertension) Hx of shoulder surgery Hx of tonsillectomy Hx of umbilical hernia repair (06/16/17) Low back pain Migraines Numbness and tingling S/P excision of ganglion cyst Sciatica Past Surgical History (Last Reviewed 04/16/20 @ 16:44 by Rafael Ballard MD) History of back surgery Hx of shoulder surgery Hx of tonsillectomy Hx of umbilical hernia repair (06/16/17) S/P excision of ganglion cyst Visit Care Team Role Provider Type Kathrine Zuniga DO Attending Provider Non-Staff Primary Care Provider Referring Provider Specialty: Family Practice Address: [address] [place] [address] Email: Physical Therapy Initial Evaluation PT-OP-A Visit Information Start: 01/21/21 17:48 Freq: Status: Active Protocol: Document 01/22/21 13:43 [facility] (Rec: 01/22/21 14:36 [facility] [id number]) Out-Patient Physical Therapy Visit Information Visit Information Visit Type Initial Evaluation Visit Note 04/06 Visit Start Time 13:45 Visit Stop Time 14:30 Total Visit Minutes 45 Visit Number 1 Number of INDUCTION BRAZER Visits 0 PT-OP-B Current Condition Start: 01/21/21 17:48 Freq: Status: Active Protocol: Document 01/22/21 13:43 [facility] (Rec: 01/22/21 14:36 [facility] [id number]) Current Condition History of Current Condition Onset Date chronic Current Complaints thoracic and lumbar pain History of Current Condition Pt reports Sept was pretty rough. He is coming off oxy at this time. He was fixing up a gutter and there was a yellow jacket nest and he got a lot of bites and fell off the ladder and hit his head. He is on prednisone to help w/ inflamation since mid Nov and was going off oxy for 10 day of prednisone but went back on oxy after. He had an appt 2 weeks ago to redo thoracic ablation (T10-12) and is awaiting for it to be scheduled then a few weeks later get lumbar block. Pt reports he cont HEP and DO rx. He saw Dr. Zuniga and improved R hip mobility and was roseanne to get a pop which felt good. He does 10 min ea of bike, stair and treadmill as many days a week he can. Can walk one mile now. Pt reports pain level is higher than he would like. He is coming off oxy now (5mg x5x day). He wants to get off the oxy and started 2 days ago to come off oxy. Reports he has been doing some lithuanian chi via videos. Pt reports he can't do much around of the house. Motivation is limiting him too . Pt reports changing position and turning corners increases pain and pt notes dec balance . 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 (Rec: 01/22/21 14:36 [facility] [id number]) Patient Questionnaires Oswestry Low Back Index Oswestry Score 23/50 OP-PT Pain Assessment Location back Pain Location Details Lumbar & SI & thoracic & R hip Description Aching,Sharp Frequency Daily Radiating Location L groin (occ) Other Pain Aggravating Factors unsure, first thing in AM Pain Alleviating Factors Cold,Medication,Exercise Other Pain Alleviating Factors CBD oil, weed PT-OP-D Balance Start: 01/21/21 17:48 Freq: Status: Active Protocol: Document 01/22/21 13:43 [facility] (Rec: 01/22/21 14:36 [facility] [id number]) Balance Tests Single Limb Standing Single Limb- Right 1 sec Single Limb- Left 3 sec PT-OP-F Manual Assessment Start: 01/21/21 17:48 Freq: Status: Active Protocol: Document 01/22/21 13:43 [facility] (Rec: 01/22/21 14:36 [facility] [id number]) Manual Assessments Soft Tissue Assessment Soft Tissue Mobility Assessment all lumbar and thoracic and R glute tender PT-OP-G Mobility & Gait Start: 01/21/21 17:48 Freq: Status: Active Protocol: Document 01/22/21 13:43 [facility] (Rec: 01/22/21 14:36 [facility] [id number]) OP Gait Assessment Comments Gait Comments Amb WNL except after standing ext then staggeres to side often and reaches for wall w/ lat leaning PT-OP-J Posture/Palpation/Skin Start: 01/21/21 17:48 Freq: Status: Active Protocol: Document 01/22/21 13:43 [facility] (Rec: 01/22/21 14:36 [facility] [id number]) Posture Evaluation Laurita Postural Classification System Laurita Postural Classifications Posterior/Anterior Lumbar Protective Mechanism Left AP 0 Lumbar Protective Mechanism Right AP 1 Lumbar Protective Mechanism Left PA 1 Lumbar Protective Mechanism Right PA 0 PT-OP-K Range of Motion Start: 01/21/21 17:48 Freq: Status: Active Protocol: Document 01/22/21 13:43 [facility] (Rec: 01/22/21 14:36 [facility] [id number]) Lumbar Spine Range of Motion Lumbar Spine Active Degrees Rotation Left 45 Rotation Right 30 PT-OP-L Special Tests Start: 01/21/21 17:48 Freq: Status: Active Protocol: Document 01/22/21 13:43 [facility] (Rec: 01/22/21 14:36 [facility] [id number]) Special Tests Lumbar Spine Special Tests Slump Test Results R positive SLR Test Results 88 R HS tightness Comments 60 L-pain in LB-positive PT-OP-M Strength Start: 01/21/21 17:48 Freq: Status: Active Protocol: Document 01/22/21 13:43 [facility] (Rec: 01/22/21 14:36 [facility] [id number]) Hip Strength Hip Manual Muscle Testing Right Flexion (L2) 4 Good Extension (S1) 3+ Fair+ Abduction 4 Good Adduction 3+ Fair+ External Rotation 4 Good Internal Rotation 4+ Good+ Left Flexion (L2) 4 Good Extension (S1) 4 Good Abduction 4 Good Adduction 4- Good- External Rotation 4+ Good+ Internal Rotation 4+ Good+ Knee Strength Knee Manual Muscle Testing Right Flexion (S2) 4 Good Extension (L3) 5 Normal Left Flexion (S2) 4 Good Extension (L3) 5 Normal Ankle/Foot Strength Ankle and Foot Manual Muscle Testing Right Dorsiflexion (L4) 5 Normal Plantarflexion (S1) 4- Good- Comments 9 heel raises Left Dorsiflexion (L4) 5 Normal Plantarflexion (S1) 4 Good Comments 12 heel raises PT-OP-T Assessment and Plan Start: 01/21/21 17:48 Freq: Status: Active Protocol: Document 01/22/21 13:43 [facility] (Rec: 01/22/21 14:36 [facility] [id number]) Physical Therapy Assessment Rehab Potential Rehabilitation Potential Fair Evaluation Complexity Number of Personal Factors/Comorbidities 3 or More Number of Body Systems Impaired 4 or More Clinical Presentation at Evaluation Evolving Impairments Impairments Activity Tolerance,Balance, Functional Activities, Functional Mobility,Gait,Pain, Posture,ROM,Soft Tissue Mobility,Strength Goals activities Short Term Goal (STG) Pt will be able to demo good lifting mechanics for PT in order to dec pain when doing lifting activities at home. STG Duration 02/22/21 Skilled Nursing Goal (LTG) Pt will be able to lift and move objects in house w/o inc of pain more than 5/10. LTG Duration 03/24/21 APRYL Impairment 23/50 Short Term Goal (STG) Pt will improve score to no higher than 18/50 to show improved functional ability. STG Duration 02/22/21 Skilled Nursing Goal (LTG) Pt will improve score to no higher than 13/50 to show improved functional ability. LTG Duration 03/24/21 strength Short Term Goal (STG) Pt will perform HEP w/good mechanics w/o cues needed STG Duration 02/22/21 Skilled Nursing Goal (LTG) Pt will score at least 3/5 on EFT and LPM and score 5/5 LE strength in all planes to allow for greater ease of movement LTG Duration 03/24/21 balance Short Term Goal (STG) Pt will be able to turn corners w/o feeling of LOB. STG Duration 02/22/21 Manufacturing Technologist Goal (LTG) Pt will be able to do SLS at least 8 sec B to show improved balance.(current 1 sec R, 3 L ) LTG Duration 03/24/21 Assessment Summary Assessment Pt returns to PT w/concerns over inc in LB and thoracic pain w/dec of narcotic use along w/concern re: inability to do the lifting and moving of objects in his house d/t back pain. He has been compliant w/his prior PT exercises and doing cardio exercises to work on loosing weight. He does still have issues w/balance when turning too quickly and does show dec core stability and LE strength (R weaker than L). He would benefit from skilled PT to work on these deficits in order to improve his functional ability. Physical Therapy Plan Frequency and Duration Frequency of Treatment 1x/Week Duration of Treatment 2 months Plan of Care Start Date 01/22/21 Plan of Care End Date 03/24/21 Therapeutic Interventions Therapeutic Interventions Aquatic Therapy,Balance Training,Gait Training,Home Exercise Program,Joint Mobilizations,Manual Therapy, Neuromuscular Re-education, Patient/Caregiver Education, Self-Care/Home Management,Soft Tissue Mobilization,Taping, Therapeutic Activities, Therapeutic Exercises Modalities Cold Pack/Ice Massage,Electric Stimulation,Hot Packs, Ultrasound Next Visit Focus/Plan Next Note Type Treatment Note Next Visit Plan review HEP, manual to dec pain .
--- NOTE | 2021-01-22 15:50 | PT.OPPOC ---
Physical, Occupational & Speech Therapy At [facility] Current Diagnoses Spondylosis without myelopathy or radiculopathy, thoracic region (01/22/21) Spinal stenosis, lumbar region with neurogenic claudication (01/22/21) Muscle weakness (generalized) (01/22/21) Difficulty in walking, not elsewhere classified (01/22/21) Abnormal posture (01/22/21) Visit Care Team Role Provider Type Kathrine Zuniga DO Attending Provider Non-Staff Primary Care Provider Referring Provider Specialty: Family Practice Address: [address] [place] [address], [id number] Email: Plan Of Care PT-OP-T Assessment and Plan Start: 01/21/21 17:48 Freq: Status: Active Protocol: Document 01/22/21 13:43 [facility] (Rec: 01/22/21 14:36 [facility] [id number]) Physical Therapy Assessment Rehab Potential Rehabilitation Potential Fair Evaluation Complexity Number of Personal Factors/Comorbidities 3 or More Number of Body Systems Impaired 4 or More Clinical Presentation at Evaluation Evolving Impairments Impairments Activity Tolerance,Balance, Functional Activities, Functional Mobility,Gait,Pain, Posture,ROM,Soft Tissue Mobility,Strength Goals activities Short Term Goal (STG) Pt will be able to demo good lifting mechanics for PT in order to dec pain when doing lifting activities at home. STG Duration 02/22/21 Bonbon Dipper Goal (LTG) Pt will be able to lift and move objects in house w/o inc of pain more than 5/10. LTG Duration 03/24/21 APRYL Impairment 23/50 Short Term Goal (STG) Pt will improve score to no higher than 18/50 to show improved functional ability. STG Duration 02/22/21 Bonbon Dipper Goal (LTG) Pt will improve score to no higher than 13/50 to show improved functional ability. LTG Duration 03/24/21 strength Short Term Goal (STG) Pt will perform HEP w/good mechanics w/o cues needed STG Duration 02/22/21 Prison Goal (LTG) Pt will score at least 3/5 on EFT and LPM and score 5/5 LE strength in all planes to allow for greater ease of movement LTG Duration 03/24/21 balance Short Term Goal (STG) Pt will be able to turn corners w/o feeling of LOB. STG Duration 02/22/21 Bonbon Dipper Goal (LTG) Pt will be able to do SLS at least 8 sec B to show improved balance.(current 1 sec R, 3 L ) LTG Duration 03/24/21 Assessment Summary Assessment Pt returns to PT w/concerns over inc in LB and thoracic pain w/dec of narcotic use along w/concern re: inability to do the lifting and moving of objects in his house d/t back pain. He has been compliant w/his prior PT exercises and doing cardio exercises to work on loosing weight. He does still have issues w/balance when turning too quickly and does show dec core stability and LE strength (R weaker than L). He would benefit from skilled PT to work on these deficits in order to improve his functional ability. Physical Therapy Plan Frequency and Duration Frequency of Treatment 1x/Week Duration of Treatment 2 months Plan of Care Start Date 01/22/21 Plan of Care End Date 03/24/21 Therapeutic Interventions Therapeutic Interventions Aquatic Therapy,Balance Training,Gait Training,Home Exercise Program,Joint Mobilizations,Manual Therapy, Neuromuscular Re-education, Patient/Caregiver Education, Self-Care/Home Management,Soft Tissue Mobilization,Taping, Therapeutic Activities, Therapeutic Exercises Modalities Cold Pack/Ice Massage,Electric Stimulation,Hot Packs, Ultrasound Next Visit Focus/Plan Next Note Type Treatment Note Next Visit Plan review HEP, manual to dec pain . Plan of Care Dates Plan of Care Start Date 01/22/21 Plan of Care End Date 03/24/21 Electronically Signed by: Cristina Lee, PT 01/22/21 8199 Please Sign and Return: I have reviewed this Plan of Care and certify that the skilled therapy services above are required to meet the patient?s needs. Physician Signature Date Printed Name and Credentials Clinical Instructor Signature Printed Name and Credentials
--- NOTE | 2021-02-03 18:49 | PT.OTN ---
Current Diagnoses Spondylosis without myelopathy or radiculopathy, thoracic region (02/03/21) Spinal stenosis, lumbar region with neurogenic claudication (02/03/21) Muscle weakness (generalized) (02/03/21) Difficulty in walking, not elsewhere classified (02/03/21) Abnormal posture (02/03/21) Physical Therapy Treatment Note PT-OP-A Visit Information Start: 01/21/21 17:48 Freq: Status: Active Protocol: Document 02/03/21 18:42 [facility] (Rec: 02/03/21 18:49 [facility] [id number]) Out-Patient Physical Therapy Visit Information Visit Information Visit Type Treatment Note Visit Note 05/07 Visit Start Time 15:24 Visit Stop Time 16:05 Total Visit Minutes 41 Visit Number 2 Number of RN FIRST ASSISTANT Visits 0 PT-OP-B Current Condition Start: 01/21/21 17:48 Freq: Status: Active Protocol: Document 01/22/21 13:43 [facility] (Rec: 01/22/21 14:36 [facility] [id number]) Current Condition History of Current Condition Onset Date chronic Current Complaints thoracic and lumbar pain History of Current Condition Pt reports Sept was pretty rough. He is coming off oxy at this time. He was fixing up a gutter and there was a yellow jacket nest and he got a lot of bites and fell off the ladder and hit his head. He is on prednisone to help w/ inflamation since mid Nov and was going off oxy for 10 day of prednisone but went back on oxy after. He had an appt 2 weeks ago to redo thoracic ablation (T10-12) and is awaiting for it to be scheduled then a few weeks later get lumbar block. Pt reports he cont HEP and DO rx. He saw Dr. Jimenez and improved R hip mobility and was roseanne to get a pop which felt good. He does 10 min ea of bike, stair and treadmill as many days a week he can. Can walk one mile now. Pt reports pain level is higher than he would like. He is coming off oxy now (5mg x5x day). He wants to get off the oxy and started 2 days ago to come off oxy. Reports he has been doing some mitchell chi via videos. Pt reports he can't do much around of the house. Motivation is limiting him too . Pt reports changing position and turning corners increases pain and pt notes dec balance . Prior Treatments and Tests DO, PT mult bouts in past, ablations & working w/painter plate Treatment Goals Patient/Caregiver Goals keep R hip going right way, be able to lift and move stuff in shop PT-OP-C Subjective Start: 01/21/21 17:48 Freq: Status: Active Protocol: Document 02/03/21 18:42 [facility] (Rec: 02/03/21 18:49 [facility] [id number]) OP-PT Subjective Patient Comments Patient Comments Pt gets thoracic ablation on Tuesday and MD told him to hold PT at least 1 week. PT-OP-D Balance Start: 01/21/21 17:48 Freq: Status: Active Protocol: Document 01/22/21 13:43 [facility] (Rec: 01/22/21 14:36 [facility] [id number]) Balance Tests Single Limb Standing Single Limb- Right 1 sec Single Limb- Left 3 sec PT-OP-F Manual Assessment Start: 01/21/21 17:48 Freq: Status: Active Protocol: Document 01/22/21 13:43 [facility] (Rec: 01/22/21 14:36 [facility] [id number]) Manual Assessments Soft Tissue Assessment Soft Tissue Mobility Assessment all lumbar and thoracic and R glute tender PT-OP-G Mobility & Gait Start: 01/21/21 17:48 Freq: Status: Active Protocol: Document 01/22/21 13:43 [facility] (Rec: 01/22/21 14:36 [facility] [id number]) OP Gait Assessment Comments Gait Comments Amb WNL except after standing ext then staggeres to side often and reaches for wall w/ lat leaning PT-OP-J Posture/Palpation/Skin Start: 01/21/21 17:48 Freq: Status: Active Protocol: Document 01/22/21 13:43 [facility] (Rec: 01/22/21 14:36 [facility] [id number]) Posture Evaluation Laurita Postural Classification System Laurita Postural Classifications Posterior/Anterior Lumbar Protective Mechanism Left AP 0 Lumbar Protective Mechanism Right AP 1 Lumbar Protective Mechanism Left PA 1 Lumbar Protective Mechanism Right PA 0 PT-OP-K Range of Motion Start: 01/21/21 17:48 Freq: Status: Active Protocol: Document 01/22/21 13:43 [facility] (Rec: 01/22/21 14:36 [facility] [id number]) Lumbar Spine Range of Motion Lumbar Spine Active Degrees Rotation Left 45 Rotation Right 30 PT-OP-L Special Tests Start: 01/21/21 17:48 Freq: Status: Active Protocol: Document 01/22/21 13:43 [facility] (Rec: 01/22/21 14:36 [facility] [id number]) Special Tests Lumbar Spine Special Tests Slump Test Results R positive SLR Test Results 88 R HS tightness Comments 60 L-pain in LB-positive PT-OP-M Strength Start: 01/21/21 17:48 Freq: Status: Active Protocol: Document 01/22/21 13:43 [facility] (Rec: 01/22/21 14:36 [facility] [id number]) Hip Strength Hip Manual Muscle Testing Right Flexion (L2) 4 Good Extension (S1) 3+ Fair+ Abduction 4 Good Adduction 3+ Fair+ External Rotation 4 Good Internal Rotation 4+ Good+ Left Flexion (L2) 4 Good Extension (S1) 4 Good Abduction 4 Good Adduction 4- Good- External Rotation 4+ Good+ Internal Rotation 4+ Good+ Knee Strength Knee Manual Muscle Testing Right Flexion (S2) 4 Good Extension (L3) 5 Normal Left Flexion (S2) 4 Good Extension (L3) 5 Normal Ankle/Foot Strength Ankle and Foot Manual Muscle Testing Right Dorsiflexion (L4) 5 Normal Plantarflexion (S1) 4- Good- Comments 9 heel raises Left Dorsiflexion (L4) 5 Normal Plantarflexion (S1) 4 Good Comments 12 heel raises PT-OP-Q Treatments Start: 01/21/21 17:48 Freq: Status: Active Protocol: Document 02/03/21 18:42 [facility] (Rec: 02/03/21 18:49 [facility] [id number]) Therapeutic Exercises Supine Exercises SKTC Side bilateral Reps/Minutes 30 sec x2 LTR Supine Exercise Name comofrtable range Side bilateral Reps/Minutes 15 Comments max cues for segmental control Standing Exercises lunge Standing Exercise Name at bar Side bilateral Reps/Minutes 15 Comments encouraged standing d/t walking IR RLE hip hinge Standing Exercise Name dowel on back very small range Side bilateral Reps/Minutes 20 squat Side bilateral Reps/Minutes 20 Comments chair behind- max cues to avoid thoracic flex & knees past toes Self-Care/Home Management Treatment Education Other Education edu to sit when he has bouts where LEs give out d/t pain. Edu to have pt get note from pain MD re: okay to return to PT. Edu on importance of hip hinge w/squat. Discussed importance of discussing w/DO doing exercises based on the movements she does when she works on him and encouraged him to not do them w/o clearance from her thinking it is helpful to do it the same. Edu on importance of 30 sec hold for stretch PT-OP-T Assessment and Plan Start: 01/21/21 17:48 Freq: Status: Active Protocol: Document 02/03/21 18:42 [facility] (Rec: 02/03/21 18:49 [facility] [id number]) Physical Therapy Assessment Goals activities Short Term Goal (STG) Pt will be able to demo good lifting mechanics for PT in order to dec pain when doing lifting activities at home. STG Duration 02/22/21 Snf Goal (LTG) Pt will be able to lift and move objects in house w/o inc of pain more than 5/10. LTG Duration 03/24/21 APRYL Impairment 23/50 Short Term Goal (STG) Pt will improve score to no higher than 18/50 to show improved functional ability. STG Duration 02/22/21 Shipfitter Goal (LTG) Pt will improve score to no higher than 13/50 to show improved functional ability. LTG Duration 03/24/21 strength Short Term Goal (STG) Pt will perform HEP w/good mechanics w/o cues needed STG Duration 02/22/21 Shipfitter Goal (LTG) Pt will score at least 3/5 on EFT and LPM and score 5/5 LE strength in all planes to allow for greater ease of movement LTG Duration 03/24/21 balance Short Term Goal (STG) Pt will be able to turn corners w/o feeling of LOB. STG Duration 02/22/21 Snf Goal (LTG) Pt will be able to do SLS at least 8 sec B to show improved balance.(current 1 sec R, 3 L ) LTG Duration 03/24/21 Assessment Summary Assessment Pt stumbled 1x as walking back to session but regained balance by touching wall. He did standing lunges, squats and mult hip hinges w/a lot of cues for form. Squats and hip hinges still not performed well. When PT discussing w/pt and working on hip hinges, pt had episode where LLE bent and went out under him as pt leaned to rail and went towards ground. PT was able to catch him and help him stand again then sat him in a chair. Pt reported pain in back that was extremely sharp and went to L side. Denies LLE symptoms . Pt walked to plinth and required mult times for PT to steady him. Max cues w/supien exercises. Pt walked out w/o issues of steadiness. Physical Therapy Plan Frequency and Duration Frequency of Treatment 1x/Week Duration of Treatment 2 months Plan of Care Start Date 01/22/21 Plan of Care End Date 03/24/21 Next Visit Focus/Plan Next Note Type Treatment Note Next Visit Plan review HEP further, manual to dec pain.
--- NOTE | 2021-02-18 15:55 | PT.OTN ---
Current Diagnoses Spondylosis without myelopathy or radiculopathy, thoracic region (02/18/21) Spinal stenosis, lumbar region with neurogenic claudication (02/18/21) Muscle weakness (generalized) (02/18/21) Difficulty in walking, not elsewhere classified (02/18/21) Abnormal posture (02/18/21) Physical Therapy Treatment Note PT-OP-A Visit Information Start: 01/21/21 17:48 Freq: Status: Active Protocol: Document 02/18/21 15:36 [facility] (Rec: 02/18/21 15:55 [facility] [id number]) Out-Patient Physical Therapy Visit Information Visit Information Visit Type Treatment Note Visit Note 06/04 Visit Start Time 11:15 Visit Stop Time 12:10 Total Visit Minutes 55 Visit Number 3 Number of PRODUCT SAFETY COMPLIANCE LEADER Visits 0 PT-OP-B Current Condition Start: 01/21/21 17:48 Freq: Status: Active Protocol: Document 01/22/21 13:43 [facility] (Rec: 01/22/21 14:36 [facility] [id number]) Current Condition History of Current Condition Onset Date chronic Current Complaints thoracic and lumbar pain History of Current Condition Pt reports Sept was pretty rough. He is coming off oxy at this time. He was fixing up a gutter and there was a yellow jacket nest and he got a lot of bites and fell off the ladder and hit his head. He is on prednisone to help w/ inflamation since mid Nov and was going off oxy for 10 day of prednisone but went back on oxy after. He had an appt 2 weeks ago to redo thoracic ablation (T10-12) and is awaiting for it to be scheduled then a few weeks later get lumbar block. Pt reports he cont HEP and DO rx. He saw Dr. Jimenez and improved R hip mobility and was roseanne to get a pop which felt good. He does 10 min ea of bike, stair and treadmill as many days a week he can. Can walk one mile now. Pt reports pain level is higher than he would like. He is coming off oxy now (5mg x5x day). He wants to get off the oxy and started 2 days ago to come off oxy. Reports he has been doing some mitchell chi via videos. Pt reports he can't do much around of the house. Motivation is limiting him too . Pt reports changing position and turning corners increases pain and pt notes dec balance . Prior Treatments and Tests DO, PT mult bouts in past, ablations & working w/maintenance painter Treatment Goals Patient/Caregiver Goals keep R hip going right way, be able to lift and move stuff in shop PT-OP-C Subjective Start: 01/21/21 17:48 Freq: Status: Active Protocol: Document 02/18/21 15:36 [facility] (Rec: 02/18/21 15:55 [facility] [id number]) OP-PT Subjective Patient Comments Patient Comments Pt reports he is still sore from thoracic ablation. He has been using ice and lidocane patches PT-OP-D Balance Start: 01/21/21 17:48 Freq: Status: Active Protocol: Document 01/22/21 13:43 [facility] (Rec: 01/22/21 14:36 [facility] [id number]) Balance Tests Single Limb Standing Single Limb- Right 1 sec Single Limb- Left 3 sec PT-OP-F Manual Assessment Start: 01/21/21 17:48 Freq: Status: Active Protocol: Document 01/22/21 13:43 [facility] (Rec: 01/22/21 14:36 [facility] [id number]) Manual Assessments Soft Tissue Assessment Soft Tissue Mobility Assessment all lumbar and thoracic and R glute tender PT-OP-G Mobility & Gait Start: 01/21/21 17:48 Freq: Status: Active Protocol: Document 01/22/21 13:43 [facility] (Rec: 01/22/21 14:36 [facility] [id number]) OP Gait Assessment Comments Gait Comments Amb WNL except after standing ext then staggeres to side often and reaches for wall w/ lat leaning PT-OP-J Posture/Palpation/Skin Start: 01/21/21 17:48 Freq: Status: Active Protocol: Document 01/22/21 13:43 [facility] (Rec: 01/22/21 14:36 [facility] [id number]) Posture Evaluation Laurita Postural Classification System Laurita Postural Classifications Posterior/Anterior Lumbar Protective Mechanism Left AP 0 Lumbar Protective Mechanism Right AP 1 Lumbar Protective Mechanism Left PA 1 Lumbar Protective Mechanism Right PA 0 PT-OP-K Range of Motion Start: 01/21/21 17:48 Freq: Status: Active Protocol: Document 01/22/21 13:43 [facility] (Rec: 01/22/21 14:36 [facility] [id number]) Lumbar Spine Range of Motion Lumbar Spine Active Degrees Rotation Left 45 Rotation Right 30 PT-OP-L Special Tests Start: 01/21/21 17:48 Freq: Status: Active Protocol: Document 01/22/21 13:43 [facility] (Rec: 01/22/21 14:36 [facility] [id number]) Special Tests Lumbar Spine Special Tests Slump Test Results R positive SLR Test Results 88 R HS tightness Comments 60 L-pain in LB-positive PT-OP-M Strength Start: 01/21/21 17:48 Freq: Status: Active Protocol: Document 01/22/21 13:43 [facility] (Rec: 01/22/21 14:36 [facility] [id number]) Hip Strength Hip Manual Muscle Testing Right Flexion (L2) 4 Good Extension (S1) 3+ Fair+ Abduction 4 Good Adduction 3+ Fair+ External Rotation 4 Good Internal Rotation 4+ Good+ Left Flexion (L2) 4 Good Extension (S1) 4 Good Abduction 4 Good Adduction 4- Good- External Rotation 4+ Good+ Internal Rotation 4+ Good+ Knee Strength Knee Manual Muscle Testing Right Flexion (S2) 4 Good Extension (L3) 5 Normal Left Flexion (S2) 4 Good Extension (L3) 5 Normal Ankle/Foot Strength Ankle and Foot Manual Muscle Testing Right Dorsiflexion (L4) 5 Normal Plantarflexion (S1) 4- Good- Comments 9 heel raises Left Dorsiflexion (L4) 5 Normal Plantarflexion (S1) 4 Good Comments 12 heel raises PT-OP-Q Treatments Start: 01/21/21 17:48 Freq: Status: Active Protocol: Document 02/18/21 15:36 [facility] (Rec: 02/18/21 15:55 [facility] [id number]) Therapeutic Exercises Sidelying Exercises open book Sidelying Exercise Name fwd reach then torso rot Side bilateral Reps/Minutes 15 Comments comforrtable range Other Exercises quadruped Other Exercise Name 1. cat/camel 2. tail wags Side bilateral Reps/Minutes 1.15 2.10 Comments cues for smaller range Manual Therapy Treatment Soft Tissue Mobilization 5 Body Location R QL & sup lat iliac crest bordr Mobilization Type Myofascial Release,Rolling Intensity/Depth Moderate Comments w/l w/ant elev/post dep Self-Care/Home Management Treatment Education Other Education edu to call MD if concerned about soreness (today d/t holiday) and pt discussed emotional stress of being DC by his DO and encouraged to consdier working w/pain psychologist d/t inc pain recently. He declined even w/ edu re: potential help. Edu to pt to discuss w/new MD his plan for tapering Oxy and to discuss his pain level and ask about medical acupuncture this physician performs. Edu to talk to MD about his normal of always feeling dizzy and nauseus that is just worse w/ oxy PT-OP-R Modalities Start: 01/21/21 17:48 Freq: Status: Active Protocol: Document 02/18/21 15:36 [facility] (Rec: 02/18/21 15:55 [facility] [id number]) Hot Pack/Cold Pack Treatment Cold Pack Location lumbar Patient Position Prone Treatment Duration (minutes) 10 PT-OP-T Assessment and Plan Start: 01/21/21 17:48 Freq: Status: Active Protocol: Document 02/18/21 15:36 [facility] (Rec: 02/18/21 15:55 [facility] [id number]) Physical Therapy Assessment Goals activities Short Term Goal (STG) Pt will be able to demo good lifting mechanics for PT in order to dec pain when doing lifting activities at home. STG Duration 02/22/21 Agricultural Economics Professor Goal (LTG) Pt will be able to lift and move objects in house w/o inc of pain more than 5/10. LTG Duration 03/24/21 APRYL Impairment 23/50 Short Term Goal (STG) Pt will improve score to no higher than 18/50 to show improved functional ability. STG Duration 02/22/21 Skilled Nursing Goal (LTG) Pt will improve score to no higher than 13/50 to show improved functional ability. LTG Duration 03/24/21 strength Short Term Goal (STG) Pt will perform HEP w/good mechanics w/o cues needed STG Duration 02/22/21 Skilled Nursing Goal (LTG) Pt will score at least 3/5 on EFT and LPM and score 5/5 LE strength in all planes to allow for greater ease of movement LTG Duration 03/24/21 balance Short Term Goal (STG) Pt will be able to turn corners w/o feeling of LOB. STG Duration 02/22/21 Skilled Nursing Goal (LTG) Pt will be able to do SLS at least 8 sec B to show improved balance.(current 1 sec R, 3 L ) LTG Duration 03/24/21 Assessment Summary Assessment Pt able to do very small range of exercises comfortably and required max cues to stay in comfortable range and just start w/gently going in/out of range. Physical Therapy Plan Frequency and Duration Frequency of Treatment 1x/Week Duration of Treatment 2 months Plan of Care Start Date 01/22/21 Plan of Care End Date 03/24/21 Next Visit Focus/Plan Next Note Type Treatment Note Next Visit Plan review exercises for pain relief and starting gentle ROM , gentle manual to dec pain. Ask pt about doing aquatic
--- NOTE | 2021-03-02 18:22 | PT.OTN ---
Current Diagnoses Spondylosis without myelopathy or radiculopathy, thoracic region (03/02/21) Spinal stenosis, lumbar region with neurogenic claudication (03/02/21) Muscle weakness (generalized) (03/02/21) Difficulty in walking, not elsewhere classified (03/02/21) Abnormal posture (03/02/21) Physical Therapy Treatment Note PT-OP-A Visit Information Start: 01/21/21 17:48 Freq: Status: Active Protocol: Document 03/02/21 14:42 [facility] (Rec: 03/02/21 15:21 [facility] [id number]) Out-Patient Physical Therapy Visit Information Visit Information Visit Type Treatment Note Visit Note 07/05 Visit Start Time 14:35 Visit Stop Time 15:15 Total Visit Minutes 40 Visit Number 4 Number of PERIOPERATIVE MANAGER Visits 0 PT-OP-B Current Condition Start: 01/21/21 17:48 Freq: Status: Active Protocol: Document 01/22/21 13:43 [facility] (Rec: 01/22/21 14:36 [facility] [id number]) Current Condition History of Current Condition Onset Date chronic Current Complaints thoracic and lumbar pain History of Current Condition Pt reports Sept was pretty rough. He is coming off oxy at this time. He was fixing up a gutter and there was a yellow jacket nest and he got a lot of bites and fell off the ladder and hit his head. He is on prednisone to help w/ inflamation since mid Nov and was going off oxy for 10 day of prednisone but went back on oxy after. He had an appt 2 weeks ago to redo thoracic ablation (T10-12) and is awaiting for it to be scheduled then a few weeks later get lumbar block. Pt reports he cont HEP and DO rx. He saw Dr. Jimenez and improved R hip mobility and was roseanne to get a pop which felt good. He does 10 min ea of bike, stair and treadmill as many days a week he can. Can walk one mile now. Pt reports pain level is higher than he would like. He is coming off oxy now (5mg x5x day). He wants to get off the oxy and started 2 days ago to come off oxy. Reports he has been doing some mitchell chi via videos. Pt reports he can't do much around of the house. Motivation is limiting him too . Pt reports changing position and turning corners increases pain and pt notes dec balance . 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 He doesn't like the gabepentin d/t the grogginess in the AM and difficulty getting moving. PT-OP-D Balance Start: 01/21/21 17:48 Freq: Status: Active Protocol: Document 01/22/21 13:43 [facility] (Rec: 01/22/21 14:36 [facility] [id number]) Balance Tests Single Limb Standing Single Limb- Right 1 sec Single Limb- Left 3 sec PT-OP-F Manual Assessment Start: 01/21/21 17:48 Freq: Status: Active Protocol: Document 01/22/21 13:43 [facility] (Rec: 01/22/21 14:36 [facility] [id number]) Manual Assessments Soft Tissue Assessment Soft Tissue Mobility Assessment all lumbar and thoracic and R glute tender PT-OP-G Mobility & Gait Start: 01/21/21 17:48 Freq: Status: Active Protocol: Document 01/22/21 13:43 [facility] (Rec: 01/22/21 14:36 [facility] [id number]) OP Gait Assessment Comments Gait Comments Amb WNL except after standing ext then staggeres to side often and reaches for wall w/ lat leaning PT-OP-J Posture/Palpation/Skin Start: 01/21/21 17:48 Freq: Status: Active Protocol: Document 01/22/21 13:43 [facility] (Rec: 01/22/21 14:36 [facility] [id number]) Posture Evaluation Laurita Postural Classification System Laurita Postural Classifications Posterior/Anterior Lumbar Protective Mechanism Left AP 0 Lumbar Protective Mechanism Right AP 1 Lumbar Protective Mechanism Left PA 1 Lumbar Protective Mechanism Right PA 0 PT-OP-K Range of Motion Start: 01/21/21 17:48 Freq: Status: Active Protocol: Document 01/22/21 13:43 [facility] (Rec: 01/22/21 14:36 [facility] [id number]) Lumbar Spine Range of Motion Lumbar Spine Active Degrees Rotation Left 45 Rotation Right 30 PT-OP-L Special Tests Start: 01/21/21 17:48 Freq: Status: Active Protocol: Document 01/22/21 13:43 [facility] (Rec: 01/22/21 14:36 [facility] [id number]) Special Tests Lumbar Spine Special Tests Slump Test Results R positive SLR Test Results 88 R HS tightness Comments 60 L-pain in LB-positive PT-OP-M Strength Start: 01/21/21 17:48 Freq: Status: Active Protocol: Document 01/22/21 13:43 [facility] (Rec: 01/22/21 14:36 [facility] [id number]) Hip Strength Hip Manual Muscle Testing Right Flexion (L2) 4 Good Extension (S1) 3+ Fair+ Abduction 4 Good Adduction 3+ Fair+ External Rotation 4 Good Internal Rotation 4+ Good+ Left Flexion (L2) 4 Good Extension (S1) 4 Good Abduction 4 Good Adduction 4- Good- External Rotation 4+ Good+ Internal Rotation 4+ Good+ Knee Strength Knee Manual Muscle Testing Right Flexion (S2) 4 Good Extension (L3) 5 Normal Left Flexion (S2) 4 Good Extension (L3) 5 Normal Ankle/Foot Strength Ankle and Foot Manual Muscle Testing Right Dorsiflexion (L4) 5 Normal Plantarflexion (S1) 4- Good- Comments 9 heel raises Left Dorsiflexion (L4) 5 Normal Plantarflexion (S1) 4 Good Comments 12 heel raises PT-OP-Q Treatments Start: 01/21/21 17:48 Freq: Status: Active Protocol: Document 03/02/21 14:42 [facility] (Rec: 03/02/21 15:21 [facility] [id number]) Therapeutic Exercises Supine Exercises core Supine Exercise Name 1.heel slide w/core 2. SLR w/ core Side bilateral Reps/Minutes 1.15 2.10 pelvic tilt Reps/Minutes 20 LTR Supine Exercise Name comfortable range Side bilateral Reps/Minutes 15 Comments cues for segmental control Sidelying Exercises open book Sidelying Exercise Name fwd reach then torso rot Side bilateral Reps/Minutes 10 Comments comforrtable range Manual Therapy Treatment Soft Tissue Mobilization 5 Body Location R QL & ES& sup lat iliac crest bordr Mobilization Type Myofascial Release,Rolling Intensity/Depth Moderate Comments w/R w/ant elev/post dep Self-Care/Home Management Treatment Education Other Education discuss w/MD re: the way Gabapentin makes him feel and that he stopped taking it. edu that aquatic may be helpful. PT-OP-R Modalities Start: 01/21/21 17:48 Freq: Status: Active Protocol: Document 02/18/21 15:36 [facility] (Rec: 02/18/21 15:55 [facility] [id number]) Hot Pack/Cold Pack Treatment Cold Pack Location lumbar Patient Position Prone Treatment Duration (minutes) 10 PT-OP-T Assessment and Plan Start: 01/21/21 17:48 Freq: Status: Active Protocol: Document 03/02/21 14:42 [facility] (Rec: 03/02/21 15:21 [facility] [id number]) Physical Therapy Assessment Goals activities Short Term Goal (STG) Pt will be able to demo good lifting mechanics for PT in order to dec pain when doing lifting activities at home. STG Duration 02/22/21 Mcc Goal (LTG) Pt will be able to lift and move objects in house w/o inc of pain more than 5/10. LTG Duration 03/24/21 APRYL Impairment 23/50 Short Term Goal (STG) Pt will improve score to no higher than 18/50 to show improved functional ability. STG Duration 02/22/21 Laboratory Chemical Assistant Goal (LTG) Pt will improve score to no higher than 13/50 to show improved functional ability. LTG Duration 03/24/21 strength Short Term Goal (STG) Pt will perform HEP w/good mechanics w/o cues needed STG Duration 02/22/21 Mcc Goal (LTG) Pt will score at least 3/5 on EFT and LPM and score 5/5 LE strength in all planes to allow for greater ease of movement LTG Duration 03/24/21 balance Short Term Goal (STG) Pt will be able to turn corners w/o feeling of LOB. STG Duration 02/22/21 Mcc Goal (LTG) Pt will be able to do SLS at least 8 sec B to show improved balance.(current 1 sec R, 3 L ) LTG Duration 03/24/21 Assessment Summary Assessment Pt required cueing w/exercises for maintaining neutral pevlis and lumbar spine w/ supine exercises and edu to stay in comfortable range. he requried cueing for segmental work w/LTR also. He was encouraged to try aquatic PT and was agreeable. He was staggering a lot on his way into his session and did less at the end of the session. Physical Therapy Plan Frequency and Duration Frequency of Treatment 1x/Week Duration of Treatment 2 months Plan of Care Start Date 01/22/21 Plan of Care End Date 03/24/21 Next Visit Focus/Plan Next Note Type Treatment Note Next Visit Plan cont to review exercises for pain relief and starting gentle ROM, gentle manual to dec pain.
--- NOTE | 2021-03-11 16:28 | PT.OTN ---
Current Diagnoses Spondylosis without myelopathy or radiculopathy, thoracic region (03/02/21) Spinal stenosis, lumbar region with neurogenic claudication (03/02/21) Muscle weakness (generalized) (03/02/21) Difficulty in walking, not elsewhere classified (03/02/21) Abnormal posture (03/02/21) Physical Therapy Treatment Note PT-OP-A Visit Information Start: 01/21/21 17:48 Freq: Status: Active Protocol: Document 03/11/21 15:15 [facility] (Rec: 03/11/21 16:28 [facility] [id number]) Out-Patient Physical Therapy Visit Information Visit Information Visit Type Treatment Note Visit Note 08/04 Visit Start Time 15:20 Visit Stop Time 16:09 Total Visit Minutes 49 Visit Number 5 Number of FINANCIAL INSTITUTION TREASURER Visits 0 PT-OP-B Current Condition Start: 01/21/21 17:48 Freq: Status: Active Protocol: Document 01/22/21 13:43 [facility] (Rec: 01/22/21 14:36 [facility] [id number]) Current Condition History of Current Condition Onset Date chronic Current Complaints thoracic and lumbar pain History of Current Condition Pt reports Sept was pretty rough. He is coming off oxy at this time. He was fixing up a gutter and there was a yellow jacket nest and he got a lot of bites and fell off the ladder and hit his head. He is on prednisone to help w/ inflamation since mid Nov and was going off oxy for 10 day of prednisone but went back on oxy after. He had an appt 2 weeks ago to redo thoracic ablation (T10-12) and is awaiting for it to be scheduled then a few weeks later get lumbar block. Pt reports he cont HEP and DO rx. He saw Dr. Jimenez and improved R hip mobility and was roseanne to get a pop which felt good. He does 10 min ea of bike, stair and treadmill as many days a week he can. Can walk one mile now. Pt reports pain level is higher than he would like. He is coming off oxy now (5mg x5x day). He wants to get off the oxy and started 2 days ago to come off oxy. Reports he has been doing some mitchell chi via videos. Pt reports he can't do much around of the house. Motivation is limiting him too . Pt reports changing position and turning corners increases pain and pt notes dec balance . 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 His primary had talked about maybe inc his dose at the last appt, so he increased his dose. He has to reschedule nerve block now. Sees primary for medical acupuncture on tuesday PT-OP-D Balance Start: 01/21/21 17:48 Freq: Status: Active Protocol: Document 01/22/21 13:43 [facility] (Rec: 01/22/21 14:36 [facility] [id number]) Balance Tests Single Limb Standing Single Limb- Right 1 sec Single Limb- Left 3 sec PT-OP-F Manual Assessment Start: 01/21/21 17:48 Freq: Status: Active Protocol: Document 01/22/21 13:43 [facility] (Rec: 01/22/21 14:36 [facility] [id number]) Manual Assessments Soft Tissue Assessment Soft Tissue Mobility Assessment all lumbar and thoracic and R glute tender PT-OP-G Mobility & Gait Start: 01/21/21 17:48 Freq: Status: Active Protocol: Document 01/22/21 13:43 [facility] (Rec: 01/22/21 14:36 [facility] [id number]) OP Gait Assessment Comments Gait Comments Amb WNL except after standing ext then staggeres to side often and reaches for wall w/ lat leaning PT-OP-J Posture/Palpation/Skin Start: 01/21/21 17:48 Freq: Status: Active Protocol: Document 01/22/21 13:43 [facility] (Rec: 01/22/21 14:36 [facility] [id number]) Posture Evaluation Laurita Postural Classification System Laurita Postural Classifications Posterior/Anterior Lumbar Protective Mechanism Left AP 0 Lumbar Protective Mechanism Right AP 1 Lumbar Protective Mechanism Left PA 1 Lumbar Protective Mechanism Right PA 0 PT-OP-K Range of Motion Start: 01/21/21 17:48 Freq: Status: Active Protocol: Document 01/22/21 13:43 [facility] (Rec: 01/22/21 14:36 [facility] [id number]) Lumbar Spine Range of Motion Lumbar Spine Active Degrees Rotation Left 45 Rotation Right 30 PT-OP-L Special Tests Start: 01/21/21 17:48 Freq: Status: Active Protocol: Document 01/22/21 13:43 [facility] (Rec: 01/22/21 14:36 [facility] [id number]) Special Tests Lumbar Spine Special Tests Slump Test Results R positive SLR Test Results 88 R HS tightness Comments 60 L-pain in LB-positive PT-OP-M Strength Start: 01/21/21 17:48 Freq: Status: Active Protocol: Document 01/22/21 13:43 [facility] (Rec: 01/22/21 14:36 [facility] [id number]) Hip Strength Hip Manual Muscle Testing Right Flexion (L2) 4 Good Extension (S1) 3+ Fair+ Abduction 4 Good Adduction 3+ Fair+ External Rotation 4 Good Internal Rotation 4+ Good+ Left Flexion (L2) 4 Good Extension (S1) 4 Good Abduction 4 Good Adduction 4- Good- External Rotation 4+ Good+ Internal Rotation 4+ Good+ Knee Strength Knee Manual Muscle Testing Right Flexion (S2) 4 Good Extension (L3) 5 Normal Left Flexion (S2) 4 Good Extension (L3) 5 Normal Ankle/Foot Strength Ankle and Foot Manual Muscle Testing Right Dorsiflexion (L4) 5 Normal Plantarflexion (S1) 4- Good- Comments 9 heel raises Left Dorsiflexion (L4) 5 Normal Plantarflexion (S1) 4 Good Comments 12 heel raises PT-OP-Q Treatments Start: 01/21/21 17:48 Freq: Status: Active Protocol: Document 03/11/21 15:15 [facility] (Rec: 03/11/21 16:28 [facility] [id number]) Therapeutic Exercises Supine Exercises core Supine Exercise Name 1.heel slide w/core 2. SLR w/ core 3. march Side bilateral Reps/Minutes 12 ea Comments core focus pelvic tilt Reps/Minutes 8 Manual Therapy Treatment Soft Tissue Mobilization 5 Body Location R QL & ES& sup lat iliac crest bordr Mobilization Type Myofascial Release,Rolling Intensity/Depth Moderate Comments w/R w/ant elev/post dep Joint Mobilizations 5 Joint R caudal glide Neuro Re-Education Treatment Other Activities 1 Comments R ant elevaiton & post dep sustained holds B Self-Care/Home Management Treatment Education Other Education edu to not change dosage of meds w/o talking to primary- edu that MD plan to inc dosage may not be just adding another pill but just a few mg so he could overdose himself. Edu to use MD prescribed dose until he discusses w/MD. Edu to discuss w/MD the mole that hs grown on his back. Edu not to change any of his meds w/o MD approval. Edu on importance of maintaining core stability during entire range of exercise and not having lift of back from mat. PT-OP-R Modalities Start: 01/21/21 17:48 Freq: Status: Active Protocol: Document 03/11/21 15:15 [facility] (Rec: 03/11/21 16:28 [facility] [id number]) Hot Pack/Cold Pack Treatment Cold Pack Location lumbar Patient Position Prone Treatment Duration (minutes) 10 PT-OP-T Assessment and Plan Start: 01/21/21 17:48 Freq: Status: Active Protocol: Document 03/11/21 15:15 [facility] (Rec: 03/11/21 16:28 [facility] [id number]) Physical Therapy Assessment Goals activities Short Term Goal (STG) Pt will be able to demo good lifting mechanics for PT in order to dec pain when doing lifting activities at home. STG Duration 02/22/21 Sales Representative Consultant Goal (LTG) Pt will be able to lift and move objects in house w/o inc of pain more than 5/10. LTG Duration 03/24/21 APRYL Impairment 23/50 Short Term Goal (STG) Pt will improve score to no higher than 18/50 to show improved functional ability. STG Duration 02/22/21 Sales Representative Consultant Goal (LTG) Pt will improve score to no higher than 13/50 to show improved functional ability. LTG Duration 03/24/21 strength Short Term Goal (STG) Pt will perform HEP w/good mechanics w/o cues needed STG Duration 02/22/21 Sales Representative Consultant Goal (LTG) Pt will score at least 3/5 on EFT and LPM and score 5/5 LE strength in all planes to allow for greater ease of movement LTG Duration 03/24/21 balance Short Term Goal (STG) Pt will be able to turn corners w/o feeling of LOB. STG Duration 02/22/21 Sales Representative Consultant Goal (LTG) Pt will be able to do SLS at least 8 sec B to show improved balance.(current 1 sec R, 3 L ) LTG Duration 03/24/21 Assessment Summary Assessment Pt did better with exercises especially after first few reps and mult cues. He did improve overall w/performance. Pt is showing improved overall pelvis motion Physical Therapy Plan Frequency and Duration Frequency of Treatment 1x/Week Duration of Treatment 2 months Plan of Care Start Date 01/22/21 Plan of Care End Date 03/24/21 Next Visit Focus/Plan Next Note Type Treatment Note Next Visit Plan cont to review exercises for pain relief and starting gentle ROM, gentle manual to dec pain.
--- NOTE | 2021-03-16 13:47 | PT.OTN ---
Current Diagnoses Spondylosis without myelopathy or radiculopathy, thoracic region (03/16/21) Spinal stenosis, lumbar region with neurogenic claudication (03/16/21) Muscle weakness (generalized) (03/16/21) Difficulty in walking, not elsewhere classified (03/16/21) Abnormal posture (03/16/21) Physical Therapy Treatment Note PT-OP-A Visit Information Start: 01/21/21 17:48 Freq: Status: Active Protocol: Document 03/16/21 12:59 [facility] (Rec: 03/16/21 13:47 [facility] [id number]) Out-Patient Physical Therapy Visit Information Visit Information Visit Type Treatment Note Visit Note 09/04 Visit Start Time 13:01 Visit Stop Time 13:53 Total Visit Minutes 52 Visit Number 6 Number of INTERCEPTOR OPERATOR Visits 0 PT-OP-B Current Condition Start: 01/21/21 17:48 Freq: Status: Active Protocol: Document 01/22/21 13:43 [facility] (Rec: 01/22/21 14:36 [facility] [id number]) Current Condition History of Current Condition Onset Date chronic Current Complaints thoracic and lumbar pain History of Current Condition Pt reports Sept was pretty rough. He is coming off oxy at this time. He was fixing up a gutter and there was a yellow jacket nest and he got a lot of bites and fell off the ladder and hit his head. He is on prednisone to help w/ inflamation since mid Nov and was going off oxy for 10 day of prednisone but went back on oxy after. He had an appt 2 weeks ago to redo thoracic ablation (T10-12) and is awaiting for it to be scheduled then a few weeks later get lumbar block. Pt reports he cont HEP and DO rx. He saw Dr. Jimenez and improved R hip mobility and was roseanne to get a pop which felt good. He does 10 min ea of bike, stair and treadmill as many days a week he can. Can walk one mile now. Pt reports pain level is higher than he would like. He is coming off oxy now (5mg x5x day). He wants to get off the oxy and started 2 days ago to come off oxy. Reports he has been doing some peruvian chi via videos. Pt reports he can't do much around of the house. Motivation is limiting him too . Pt reports changing position and turning corners increases pain and pt notes dec balance . Prior Treatments and Tests DO, PT mult bouts in past, ablations & working w/painter drum Treatment Goals Patient/Caregiver Goals keep R hip going right way, be able to lift and move stuff in shop PT-OP-C Subjective Start: 01/21/21 17:48 Freq: Status: Active Protocol: Document 03/16/21 12:59 [facility] (Rec: 03/16/21 13:47 [facility] [id number]) OP-PT Subjective Patient Comments Patient Comments Pt reports he has done acupunctre 2x since last session and this time MD did some scraping and he feels like that has helped his lower thoracic on R side w/pain. Did a walk after acpuncture and did some exercsies and cardio at the gym. Pt reports getting booster and flu shot so as wiped out this weekend. PT-OP-D Balance Start: 01/21/21 17:48 Freq: Status: Active Protocol: Document 01/22/21 13:43 [facility] (Rec: 01/22/21 14:36 [facility] [id number]) Balance Tests Single Limb Standing Single Limb- Right 1 sec Single Limb- Left 3 sec PT-OP-F Manual Assessment Start: 01/21/21 17:48 Freq: Status: Active Protocol: Document 01/22/21 13:43 [facility] (Rec: 01/22/21 14:36 [facility] [id number]) Manual Assessments Soft Tissue Assessment Soft Tissue Mobility Assessment all lumbar and thoracic and R glute tender PT-OP-G Mobility & Gait Start: 01/21/21 17:48 Freq: Status: Active Protocol: Document 01/22/21 13:43 [facility] (Rec: 01/22/21 14:36 [facility] [id number]) OP Gait Assessment Comments Gait Comments Amb WNL except after standing ext then staggeres to side often and reaches for wall w/ lat leaning PT-OP-J Posture/Palpation/Skin Start: 01/21/21 17:48 Freq: Status: Active Protocol: Document 01/22/21 13:43 [facility] (Rec: 01/22/21 14:36 [facility] [id number]) Posture Evaluation Laurita Postural Classification System Laurita Postural Classifications Posterior/Anterior Lumbar Protective Mechanism Left AP 0 Lumbar Protective Mechanism Right AP 1 Lumbar Protective Mechanism Left PA 1 Lumbar Protective Mechanism Right PA 0 PT-OP-K Range of Motion Start: 01/21/21 17:48 Freq: Status: Active Protocol: Document 01/22/21 13:43 [facility] (Rec: 01/22/21 14:36 [facility] [id number]) Lumbar Spine Range of Motion Lumbar Spine Active Degrees Rotation Left 45 Rotation Right 30 PT-OP-L Special Tests Start: 01/21/21 17:48 Freq: Status: Active Protocol: Document 01/22/21 13:43 [facility] (Rec: 01/22/21 14:36 [facility] [id number]) Special Tests Lumbar Spine Special Tests Slump Test Results R positive SLR Test Results 88 R HS tightness Comments 60 L-pain in LB-positive PT-OP-M Strength Start: 01/21/21 17:48 Freq: Status: Active Protocol: Document 01/22/21 13:43 [facility] (Rec: 01/22/21 14:36 [facility] [id number]) Hip Strength Hip Manual Muscle Testing Right Flexion (L2) 4 Good Extension (S1) 3+ Fair+ Abduction 4 Good Adduction 3+ Fair+ External Rotation 4 Good Internal Rotation 4+ Good+ Left Flexion (L2) 4 Good Extension (S1) 4 Good Abduction 4 Good Adduction 4- Good- External Rotation 4+ Good+ Internal Rotation 4+ Good+ Knee Strength Knee Manual Muscle Testing Right Flexion (S2) 4 Good Extension (L3) 5 Normal Left Flexion (S2) 4 Good Extension (L3) 5 Normal Ankle/Foot Strength Ankle and Foot Manual Muscle Testing Right Dorsiflexion (L4) 5 Normal Plantarflexion (S1) 4- Good- Comments 9 heel raises Left Dorsiflexion (L4) 5 Normal Plantarflexion (S1) 4 Good Comments 12 heel raises PT-OP-Q Treatments Start: 01/21/21 17:48 Freq: Status: Active Protocol: Document 03/16/21 12:59 [facility] (Rec: 03/16/21 13:47 [facility] [id number]) Therapeutic Exercises Supine Exercises core Supine Exercise Name 1.heel slide w/core 2. SLR w/ core 3. may 29. BKFO Side bilateral Reps/Minutes 1. 8 2. 10 3. 8 4. 15 Comments core focus LTR Supine Exercise Name comfortable range Side bilateral Reps/Minutes 10 Comments max cues for segmental control Manual Therapy Treatment Soft Tissue Mobilization 2 Body Location L hip flexor and adductor w/ hip IR/ER Mobilization Type Rolling,Strumming Intensity/Depth Moderate Joint Mobilizations 5 Joint L hip Direction inf glide FM PT-OP-R Modalities Start: 01/21/21 17:48 Freq: Status: Active Protocol: Document 03/16/21 12:59 [facility] (Rec: 03/16/21 13:47 [facility] [id number]) Hot Pack/Cold Pack Treatment Cold Pack Location lumbar Patient Position Prone Treatment Duration (minutes) 10 PT-OP-T Assessment and Plan Start: 01/21/21 17:48 Freq: Status: Active Protocol: Document 03/16/21 12:59 [facility] (Rec: 03/16/21 13:47 [facility] [id number]) Physical Therapy Assessment Goals activities Short Term Goal (STG) Pt will be able to demo good lifting mechanics for PT in order to dec pain when doing lifting activities at home. STG Duration 02/22/21 Laborer Livestock Goal (LTG) Pt will be able to lift and move objects in house w/o inc of pain more than 5/10. LTG Duration 03/24/21 APRYL Impairment 23/50 Short Term Goal (STG) Pt will improve score to no higher than 18/50 to show improved functional ability. STG Duration 02/22/21 [facility] Goal (LTG) Pt will improve score to no higher than 13/50 to show improved functional ability. LTG Duration 03/24/21 strength Short Term Goal (STG) Pt will perform HEP w/good mechanics w/o cues needed STG Duration 02/22/21 Laborer Livestock Goal (LTG) Pt will score at least 3/5 on EFT and LPM and score 5/5 LE strength in all planes to allow for greater ease of movement LTG Duration 03/24/21 balance Short Term Goal (STG) Pt will be able to turn corners w/o feeling of LOB. STG Duration 02/22/21 [facility] Goal (LTG) Pt will be able to do SLS at least 8 sec B to show improved balance.(current 1 sec R, 3 L ) LTG Duration 03/24/21 Assessment Summary Assessment pt did better w/core exercises today w/less cueing for spine set up and noticed more when loosing form and reset w/less cueing except w/SLR and LTR still. As pt was walking back he was reaching for surfaces. when seen an hour earlier by therapist walking around, pt was able to turn head and walk to talk though. Improved hip flexion on L w/manual treatment Physical Therapy Plan Frequency and Duration Frequency of Treatment 1x/Week Duration of Treatment 2 months Plan of Care Start Date 01/22/21 Plan of Care End Date 03/24/21 Next Visit Focus/Plan Next Note Type Progress Note Next Visit Plan assess for progress & where to focus w/pt exercises
--- NOTE | 2021-03-30 14:39 | PT.OTN ---
Current Diagnoses Spondylosis without myelopathy or radiculopathy, thoracic region (03/30/21) Spinal stenosis, lumbar region with neurogenic claudication (03/30/21) Muscle weakness (generalized) (03/30/21) Difficulty in walking, not elsewhere classified (03/30/21) Abnormal posture (03/30/21) Physical Therapy Treatment Note PT-OP-A Visit Information Start: 01/21/21 17:48 Freq: Status: Active Protocol: Document 03/30/21 13:01 [facility] (Rec: 03/30/21 14:39 [facility] [id number]) Out-Patient Physical Therapy Visit Information Visit Information Visit Type Progress Note Visit Note 04/06 Visit Start Time 13:01 Visit Stop Time 13:41 Total Visit Minutes 40 Visit Number 7 Number of DATA COLLECTION TECHNICIAN Visits 0 PT-OP-B Current Condition Start: 01/21/21 17:48 Freq: Status: Active Protocol: Document 01/22/21 13:43 [facility] (Rec: 01/22/21 14:36 [facility] [id number]) Current Condition History of Current Condition Onset Date chronic Current Complaints thoracic and lumbar pain History of Current Condition Pt reports Sept was pretty rough. He is coming off oxy at this time. He was fixing up a gutter and there was a yellow jacket nest and he got a lot of bites and fell off the ladder and hit his head. He is on prednisone to help w/ inflamation since mid Nov and was going off oxy for 10 day of prednisone but went back on oxy after. He had an appt 2 weeks ago to redo thoracic ablation (T10-12) and is awaiting for it to be scheduled then a few weeks later get lumbar block. Pt reports he cont HEP and DO rx. He saw Dr. Jimenez and improved R hip mobility and was roseanne to get a pop which felt good. He does 10 min ea of bike, stair and treadmill as many days a week he can. Can walk one mile now. Pt reports pain level is higher than he would like. He is coming off oxy now (5mg x5x day). He wants to get off the oxy and started 2 days ago to come off oxy. Reports he has been doing some mitchell chi via videos. Pt reports he can't do much around of the house. Motivation is limiting him too . Pt reports changing position and turning corners increases pain and pt notes dec balance . Prior Treatments and Tests DO, PT mult bouts in past, ablations & working w/embossed or impressed lettering painter Treatment Goals Patient/Caregiver Goals keep R hip going right way, be able to lift and move stuff in shop PT-OP-C Subjective Start: 01/21/21 17:48 Freq: Status: Active Protocol: Document 03/30/21 13:01 [facility] (Rec: 03/30/21 14:39 [facility] [id number]) OP-PT Subjective Patient Comments Patient Comments Pt reports he has been working on his core. Pt reports he can do 30 min consistantly daily on cardio machines but that is the max he can do comfortably. Patient Questionnaires Oswestry Low Back Index Oswestry Score 20/50 PT-OP-D Balance Start: 01/21/21 17:48 Freq: Status: Active Protocol: Document 01/22/21 13:43 [facility] (Rec: 01/22/21 14:36 [facility] [id number]) Balance Tests Single Limb Standing Single Limb- Right 1 sec Single Limb- Left 3 sec PT-OP-F Manual Assessment Start: 01/21/21 17:48 Freq: Status: Active Protocol: Document 01/22/21 13:43 [facility] (Rec: 01/22/21 14:36 [facility] [id number]) Manual Assessments Soft Tissue Assessment Soft Tissue Mobility Assessment all lumbar and thoracic and R glute tender PT-OP-G Mobility & Gait Start: 01/21/21 17:48 Freq: Status: Active Protocol: Document 01/22/21 13:43 [facility] (Rec: 01/22/21 14:36 [facility] [id number]) OP Gait Assessment Comments Gait Comments Amb WNL except after standing ext then staggeres to side often and reaches for wall w/ lat leaning PT-OP-J Posture/Palpation/Skin Start: 01/21/21 17:48 Freq: Status: Active Protocol: Document 03/30/21 13:01 [facility] (Rec: 03/30/21 14:39 [facility] [id number]) Posture Evaluation Laurita Postural Classification System Laurita Postural Classifications Posterior/Anterior Lumbar Protective Mechanism Left AP 0 Lumbar Protective Mechanism Right AP 0 Lumbar Protective Mechanism Left PA 2 Lumbar Protective Mechanism Right PA 2 PT-OP-K Range of Motion Start: 01/21/21 17:48 Freq: Status: Active Protocol: Document 01/22/21 13:43 [facility] (Rec: 01/22/21 14:36 [facility] [id number]) Lumbar Spine Range of Motion Lumbar Spine Active Degrees Rotation Left 45 Rotation Right 30 PT-OP-L Special Tests Start: 01/21/21 17:48 Freq: Status: Active Protocol: Document 01/22/21 13:43 [facility] (Rec: 01/22/21 14:36 [facility] [id number]) Special Tests Lumbar Spine Special Tests Slump Test Results R positive SLR Test Results 88 R HS tightness Comments 60 L-pain in LB-positive PT-OP-M Strength Start: 01/21/21 17:48 Freq: Status: Active Protocol: Document 03/30/21 13:01 [facility] (Rec: 03/30/21 14:39 [facility] [id number]) Hip Strength Hip Manual Muscle Testing Right Flexion (L2) 4 Good Extension (S1) 4 Good Abduction 4 Good Adduction 4- Good- External Rotation 4 Good Internal Rotation 4 Good Left Flexion (L2) 4 Good Extension (S1) 4+ Good+ Abduction 4 Good Adduction 4 Good External Rotation 4+ Good+ Internal Rotation 5 Normal Knee Strength Knee Manual Muscle Testing Right Flexion (S2) 4+ Good+ Extension (L3) 5 Normal Left Flexion (S2) 4+ Good+ Extension (L3) 5 Normal Ankle/Foot Strength Ankle and Foot Manual Muscle Testing Right Dorsiflexion (L4) 5 Normal Plantarflexion (S1) 4- Good- Comments 10 heel raises Left Dorsiflexion (L4) 5 Normal Plantarflexion (S1) 4 Good Comments 10 heel raises PT-OP-Q Treatments Start: 01/21/21 17:48 Freq: Status: Active Protocol: Document 03/30/21 13:01 [facility] (Rec: 03/30/21 14:39 [facility] [id number]) Therapeutic Exercises Supine Exercises core Supine Exercise Name 1. SLR w/core 2. BKFO Side bilateral Reps/Minutes 10 ea Comments core focus LTR Supine Exercise Name comfortable range Side bilateral Reps/Minutes 10 Comments max cues for segmental control Other Exercises quadruped Other Exercise Name 1. alt UE flex Side bilateral Reps/Minutes 2x4 PT-OP-R Modalities Start: 01/21/21 17:48 Freq: Status: Active Protocol: Document 03/16/21 12:59 [facility] (Rec: 03/16/21 13:47 [facility] [id number]) Hot Pack/Cold Pack Treatment Cold Pack Location lumbar Patient Position Prone Treatment Duration (minutes) 10 PT-OP-T Assessment and Plan Start: 01/21/21 17:48 Freq: Status: Active Protocol: Document 03/30/21 13:01 [facility] (Rec: 03/30/21 14:39 [facility] [id number]) Physical Therapy Assessment Goals activities Short Term Goal (STG) Pt will be able to demo good lifting mechanics for PT in order to dec pain when doing lifting activities at home. 1/3-still bends at tspine to picker box operator something from gorund STG Duration 04/30/21 Second Mate Goal (LTG) Pt will be able to lift and move objects in house w/o inc of pain more than 08/04. 1/3-can lift up to 50# from floor to table if he focuses on posture 10/04 LTG Duration 05/28/21 APRYL Impairment 23 Short Term Goal (STG) Pt will improve score to no higher than 18/50 to show improved functional ability. 03/30- STG Duration 04/30/21 Skilled Nursing Goal (LTG) Pt will improve score to no higher than 13/50 to show improved functional ability. LTG Duration 05/28/21 strength Short Term Goal (STG) Pt will perform HEP w/good mechanics w/o cues needed 1/3-improving but cues still required STG Duration 04/30/21 Skilled Nursing Goal (LTG) Pt will score at least 3/5 on EFT and LPM and score 5/5 LE strength in all planes to allow for greater ease of movement 1/3-some improvement LTG Duration 05/28/21 balance Short Term Goal (STG) Pt will be able to turn corners w/o feeling of LOB. 13-no change STG Duration 04/30/21 Second Mate Goal (LTG) Pt will be able to do SLS at least 8 sec B to show improved balance.(current 1 sec R, 3 L ) 13- no change 1 sec R, L 2 sec LTG Duration 05/28/21 Assessment Summary Assessment Pt has minor improvements with strength and has improved with his exercise performance at this time. He still requires cues w/form for lifting and some exercises. He would benefit from cont PT w/ addition of aquatic to improve pain control. Physical Therapy Plan Frequency and Duration Frequency of Treatment 1-2x/week Duration of Treatment 2 months Plan of Care Start Date 03/30/21 Plan of Care End Date 05/28/21 Therapeutic Interventions Therapeutic Interventions Aquatic Therapy,Balance Training,Gait Training,Home Exercise Program,Joint Mobilizations,Manual Therapy, Neuromuscular Re-education, Patient/Caregiver Education, Self-Care/Home Management,Soft Tissue Mobilization,Taping, Therapeutic Activities, Therapeutic Exercises Modalities Cold Pack/Ice Massage,Electric Stimulation,Hot Packs, Ultrasound Next Visit Focus/Plan Next Note Type Treatment Note Next Visit Plan cont to work on HEP
--- NOTE | 2021-03-30 14:39 | PT.OPPOC ---
Physical, Occupational & Speech Therapy At [facility] Current Diagnoses Spondylosis without myelopathy or radiculopathy, thoracic region (03/30/21) Spinal stenosis, lumbar region with neurogenic claudication (03/30/21) Muscle weakness (generalized) (03/30/21) Difficulty in walking, not elsewhere classified (03/30/21) Abnormal posture (03/30/21) Visit Care Team Role Provider Type Kathrine Zuniga DO Attending Provider Non-Staff Primary Care Provider Referring Provider Specialty: Family Practice Address: [address] [place] [address], [id number] Email: Plan Of Care PT-OP-T Assessment and Plan Start: 01/21/21 17:48 Freq: Status: Active Protocol: Document 03/30/21 13:01 [facility] (Rec: 03/30/21 14:39 [facility] [id number]) Physical Therapy Assessment Goals activities Short Term Goal (STG) Pt will be able to demo good lifting mechanics for PT in order to dec pain when doing lifting activities at home. 1/3-still bends at tspine to picking table worker something from gorund STG Duration 04/30/21 Notary Public Goal (LTG) Pt will be able to lift and move objects in house w/o inc of pain more than 5/10. 1/3-can lift up to 50# from floor to table if he focuses on posture 10/04 LTG Duration 05/28/21 APRYL Impairment 23/50 Short Term Goal (STG) Pt will improve score to no higher than 18/50 to show improved functional ability. 1-30/50 STG Duration 04/30/21 Notary Public Goal (LTG) Pt will improve score to no higher than 13/50 to show improved functional ability. LTG Duration 05/28/21 strength Short Term Goal (STG) Pt will perform HEP w/good mechanics w/o cues needed 1/3-improving but cues still required STG Duration 04/30/21 Notary Public Goal (LTG) Pt will score at least 3/5 on EFT and LPM and score 5/5 LE strength in all planes to allow for greater ease of movement 1/3-some improvement LTG Duration 05/28/21 balance Short Term Goal (STG) Pt will be able to turn corners w/o feeling of LOB. 03/30-no change STG Duration 04/30/21 Notary Public Goal (LTG) Pt will be able to do SLS at least 8 sec B to show improved balance.(current 1 sec R, 3 L ) 03/30- no change 1 sec R, L 2 sec LTG Duration 05/28/21 Assessment Summary Assessment Pt has minor improvements with strength and has improved with his exercise performance at this time. He still requires cues w/form for lifting and some exercises. He would benefit from cont PT w/ addition of aquatic to improve pain control. Physical Therapy Plan Frequency and Duration Frequency of Treatment 1-2x/week Duration of Treatment 2 months Plan of Care Start Date 03/30/21 Plan of Care End Date 05/28/21 Therapeutic Interventions Therapeutic Interventions Aquatic Therapy,Balance Training,Gait Training,Home Exercise Program,Joint Mobilizations,Manual Therapy, Neuromuscular Re-education, Patient/Caregiver Education, Self-Care/Home Management,Soft Tissue Mobilization,Taping, Therapeutic Activities, Therapeutic Exercises Modalities Cold Pack/Ice Massage,Electric Stimulation,Hot Packs, Ultrasound Next Visit Focus/Plan Next Note Type Treatment Note Next Visit Plan cont to work on HEP Plan of Care Dates Plan of Care Start Date 03/30/21 Plan of Care End Date 05/28/21 Electronically Signed by: Cristina Lee, PT 03/30/21 4921 Please Sign and Return: I have reviewed this Plan of Care and certify that the skilled therapy services above are required to meet the patient?s needs. Physician Signature Date Printed Name and Credentials Clinical Instructor Signature Printed Name and Credentials
--- NOTE | 2021-04-06 13:49 | PT.OTN ---
Current Diagnoses Spondylosis without myelopathy or radiculopathy, thoracic region (04/06/21) Spinal stenosis, lumbar region with neurogenic claudication (04/06/21) Muscle weakness (generalized) (04/06/21) Difficulty in walking, not elsewhere classified (04/06/21) Abnormal posture (04/06/21) Physical Therapy Treatment Note PT-OP-A Visit Information Start: 01/21/21 17:48 Freq: Status: Active Protocol: Document 04/06/21 12:57 [facility] (Rec: 04/06/21 13:49 [facility] [id number]) Out-Patient Physical Therapy Visit Information Visit Information Visit Type Treatment Note Visit Note 05/07 Visit Number 8 Number of FEDERAL LAW CLERK Visits 0 PT-OP-B Current Condition Start: 01/21/21 17:48 Freq: Status: Active Protocol: Document 01/22/21 13:43 [facility] (Rec: 01/22/21 14:36 [facility] [id number]) Current Condition History of Current Condition Onset Date chronic Current Complaints thoracic and lumbar pain History of Current Condition Pt reports Sept was pretty rough. He is coming off oxy at this time. He was fixing up a gutter and there was a yellow jacket nest and he got a lot of bites and fell off the ladder and hit his head. He is on prednisone to help w/ inflamation since mid Nov and was going off oxy for 10 day of prednisone but went back on oxy after. He had an appt 2 weeks ago to redo thoracic ablation (T10-12) and is awaiting for it to be scheduled then a few weeks later get lumbar block. Pt reports he cont HEP and DO rx. He saw Dr. Jimenez and improved R hip mobility and was roseanne to get a pop which felt good. He does 10 min ea of bike, stair and treadmill as many days a week he can. Can walk one mile now. Pt reports pain level is higher than he would like. He is coming off oxy now (5mg x5x day). He wants to get off the oxy and started 2 days ago to come off oxy. Reports he has been doing some divehi chi via videos. Pt reports he can't do much around of the house. Motivation is limiting him too . Pt reports changing position and turning corners increases pain and pt notes dec balance . Prior Treatments and Tests DO, PT mult bouts in past, ablations & working w/plate painter Treatment Goals Patient/Caregiver Goals keep R hip going right way, be able to lift and move stuff in shop PT-OP-C Subjective Start: 01/21/21 17:48 Freq: Status: Active Protocol: Document 04/06/21 12:57 [facility] (Rec: 04/06/21 13:49 [facility] [id number]) OP-PT Subjective Patient Comments Patient Comments Pt reports acupuncture today. He has gotten up to 40 min of cardio this past week but paid a jacome. PT-OP-D Balance Start: 01/21/21 17:48 Freq: Status: Active Protocol: Document 01/22/21 13:43 [facility] (Rec: 01/22/21 14:36 [facility] [id number]) Balance Tests Single Limb Standing Single Limb- Right 1 sec Single Limb- Left 3 sec PT-OP-F Manual Assessment Start: 01/21/21 17:48 Freq: Status: Active Protocol: Document 01/22/21 13:43 [facility] (Rec: 01/22/21 14:36 [facility] [id number]) Manual Assessments Soft Tissue Assessment Soft Tissue Mobility Assessment all lumbar and thoracic and R glute tender PT-OP-G Mobility & Gait Start: 01/21/21 17:48 Freq: Status: Active Protocol: Document 01/22/21 13:43 [facility] (Rec: 01/22/21 14:36 [facility] [id number]) OP Gait Assessment Comments Gait Comments Amb WNL except after standing ext then staggeres to side often and reaches for wall w/ lat leaning PT-OP-J Posture/Palpation/Skin Start: 01/21/21 17:48 Freq: Status: Active Protocol: Document 03/30/21 13:01 [facility] (Rec: 03/30/21 14:39 [facility] [id number]) Posture Evaluation Laurita Postural Classification System Laurita Postural Classifications Posterior/Anterior Lumbar Protective Mechanism Left AP 0 Lumbar Protective Mechanism Right AP 0 Lumbar Protective Mechanism Left PA 2 Lumbar Protective Mechanism Right PA 2 PT-OP-K Range of Motion Start: 01/21/21 17:48 Freq: Status: Active Protocol: Document 01/22/21 13:43 [facility] (Rec: 01/22/21 14:36 [facility] [id number]) Lumbar Spine Range of Motion Lumbar Spine Active Degrees Rotation Left 45 Rotation Right 30 PT-OP-L Special Tests Start: 01/21/21 17:48 Freq: Status: Active Protocol: Document 01/22/21 13:43 [facility] (Rec: 01/22/21 14:36 [facility] [id number]) Special Tests Lumbar Spine Special Tests Slump Test Results R positive SLR Test Results 88 R HS tightness Comments 60 L-pain in LB-positive PT-OP-M Strength Start: 01/21/21 17:48 Freq: Status: Active Protocol: Document 03/30/21 13:01 [facility] (Rec: 03/30/21 14:39 [facility] [id number]) Hip Strength Hip Manual Muscle Testing Right Flexion (L2) 4 Good Extension (S1) 4 Good Abduction 4 Good Adduction 4- Good- External Rotation 4 Good Internal Rotation 4 Good Left Flexion (L2) 4 Good Extension (S1) 4+ Good+ Abduction 4 Good Adduction 4 Good External Rotation 4+ Good+ Internal Rotation 5 Normal Knee Strength Knee Manual Muscle Testing Right Flexion (S2) 4+ Good+ Extension (L3) 5 Normal Left Flexion (S2) 4+ Good+ Extension (L3) 5 Normal Ankle/Foot Strength Ankle and Foot Manual Muscle Testing Right Dorsiflexion (L4) 5 Normal Plantarflexion (S1) 4- Good- Comments 10 heel raises Left Dorsiflexion (L4) 5 Normal Plantarflexion (S1) 4 Good Comments 10 heel raises PT-OP-Q Treatments Start: 01/21/21 17:48 Freq: Status: Active Protocol: Document 04/06/21 12:57 [facility] (Rec: 04/06/21 13:49 [facility] [id number]) Therapeutic Exercises Supine Exercises core Supine Exercise Name 1. SLR w/core 2. BKFO Side bilateral Reps/Minutes 10 ea Comments core focus LTR Supine Exercise Name comfortable range Side bilateral Reps/Minutes 12 Comments max cues for segmental control Standing Exercises lunge Standing Exercise Name at bar Side bilateral Reps/Minutes 8 ea Comments cues for no torso rotation hip hinge Standing Exercise Name 1. seated 2. standing Side bilateral Reps/Minutes 30 ea Comments dowel on back very small range squat Standing Exercise Name mini w/dowel Side bilateral Reps/Minutes 8 Manual Therapy Treatment Soft Tissue Mobilization 5 Body Location L QL & ES& sup lat iliac crest bordr Mobilization Type Myofascial Release,Rolling Intensity/Depth Moderate Comments w/R w/ant elev/post dep Joint Mobilizations 4 Joint lumbar Direction transverse glide R L1-2 Grade II Neuro Re-Education Treatment Other Activities 1 Details sustained holds ant elevation L PT-OP-R Modalities Start: 01/21/21 17:48 Freq: Status: Active Protocol: Document 03/16/21 12:59 [facility] (Rec: 03/16/21 13:47 [facility] [id number]) Hot Pack/Cold Pack Treatment Cold Pack Location lumbar Patient Position Prone Treatment Duration (minutes) 10 PT-OP-T Assessment and Plan Start: 01/21/21 17:48 Freq: Status: Active Protocol: Document 04/06/21 12:57 [facility] (Rec: 04/06/21 13:49 [facility] [id number]) Physical Therapy Assessment Goals activities Short Term Goal (STG) Pt will be able to demo good lifting mechanics for PT in order to dec pain when doing lifting activities at home. 1/3-still bends at tspine to strip picker something from gorund STG Duration 04/30/21 Fpc Goal (LTG) Pt will be able to lift and move objects in house w/o inc of pain more than 5/10. 1/3-can lift up to 50# from floor to table if he focuses on posture 10/04 LTG Duration 05/28/21 APRYL Impairment 23/50 Short Term Goal (STG) Pt will improve score to no higher than 18/50 to show improved functional ability. 1-30/50 STG Duration 04/30/21 Fpc Goal (LTG) Pt will improve score to no higher than 13/50 to show improved functional ability. LTG Duration 05/28/21 strength Short Term Goal (STG) Pt will perform HEP w/good mechanics w/o cues needed 1/3-improving but cues still required STG Duration 04/30/21 Fpc Goal (LTG) Pt will score at least 3/5 on EFT and LPM and score 5/5 LE strength in all planes to allow for greater ease of movement 1/3-some improvement LTG Duration 05/28/21 balance Short Term Goal (STG) Pt will be able to turn corners w/o feeling of LOB. 1/3-no change STG Duration 04/30/21 Data Developer Goal (LTG) Pt will be able to do SLS at least 8 sec B to show improved balance.(current 1 sec R, 3 L ) 03/30- no change 1 sec R, L 2 sec LTG Duration 05/28/21 Assessment Summary Assessment Pt dd well with supine exercises but still needed cues w/BKFO and LTR. Hip hinging was very difficult for pt as he tends to flex spine. Improved ant elvation an dpost dep after manual Physical Therapy Plan Frequency and Duration Frequency of Treatment 1-2x/week Duration of Treatment 2 months Plan of Care Start Date 03/30/21 Plan of Care End Date 05/28/21 Next Visit Focus/Plan Next Note Type Treatment Note Next Visit Plan cont to work on HEP & manual for pain relief
--- NOTE | 2021-04-10 14:59 | PT.OTN ---
Current Diagnoses Spondylosis without myelopathy or radiculopathy, thoracic region (04/06/21) Spinal stenosis, lumbar region with neurogenic claudication (04/06/21) Muscle weakness (generalized) (04/06/21) Difficulty in walking, not elsewhere classified (04/06/21) Abnormal posture (04/06/21) Physical Therapy Treatment Note PT-OP-A Visit Information Start: 01/21/21 17:48 Freq: Status: Active Protocol: Document 04/10/21 14:30 [facility] (Rec: 04/10/21 14:59 [facility] [id number]) Out-Patient Physical Therapy Visit Information Visit Information Visit Type Aquatic Treatment Note Visit Start Time 11:00 Visit Stop Time 11:45 Total Visit Minutes 45 Visit Number 9 Number of HEDGE FUND MANAGER Visits 1 PT-OP-B Current Condition Start: 01/21/21 17:48 Freq: Status: Active Protocol: Document 01/22/21 13:43 [facility] (Rec: 01/22/21 14:36 [facility] [id number]) Current Condition History of Current Condition Onset Date chronic Current Complaints thoracic and lumbar pain History of Current Condition Pt reports Sept was pretty rough. He is coming off oxy at this time. He was fixing up a gutter and there was a yellow jacket nest and he got a lot of bites and fell off the ladder and hit his head. He is on prednisone to help w/ inflamation since mid Nov and was going off oxy for 10 day of prednisone but went back on oxy after. He had an appt 2 weeks ago to redo thoracic ablation (T10-12) and is awaiting for it to be scheduled then a few weeks later get lumbar block. Pt reports he cont HEP and DO rx. He saw Dr. Jimenez and improved R hip mobility and was roseanne to get a pop which felt good. He does 10 min ea of bike, stair and treadmill as many days a week he can. Can walk one mile now. Pt reports pain level is higher than he would like. He is coming off oxy now (5mg x5x day). He wants to get off the oxy and started 2 days ago to come off oxy. Reports he has been doing some frisian chi via videos. Pt reports he can't do much around of the house. Motivation is limiting him too . Pt reports changing position and turning corners increases pain and pt notes dec balance . Prior Treatments and Tests DO, PT mult bouts in past, ablations & working w/paintings conservator Treatment Goals Patient/Caregiver Goals keep R hip going right way, be able to lift and move stuff in shop PT-OP-C Subjective Start: 01/21/21 17:48 Freq: Status: Active Protocol: Document 04/10/21 14:30 [facility] (Rec: 04/10/21 14:59 [facility] [id number]) OP-PT Subjective Patient Comments Patient Comments Pt states he is feeling fine without pain but feels stiff all over. PT-OP-D Balance Start: 01/21/21 17:48 Freq: Status: Active Protocol: Document 01/22/21 13:43 [facility] (Rec: 01/22/21 14:36 [facility] [id number]) Balance Tests Single Limb Standing Single Limb- Right 1 sec Single Limb- Left 3 sec PT-OP-F Manual Assessment Start: 01/21/21 17:48 Freq: Status: Active Protocol: Document 01/22/21 13:43 [facility] (Rec: 01/22/21 14:36 [facility] [id number]) Manual Assessments Soft Tissue Assessment Soft Tissue Mobility Assessment all lumbar and thoracic and R glute tender PT-OP-G Mobility & Gait Start: 01/21/21 17:48 Freq: Status: Active Protocol: Document 01/22/21 13:43 [facility] (Rec: 01/22/21 14:36 [facility] [id number]) OP Gait Assessment Comments Gait Comments Amb WNL except after standing ext then staggeres to side often and reaches for wall w/ lat leaning PT-OP-J Posture/Palpation/Skin Start: 01/21/21 17:48 Freq: Status: Active Protocol: Document 03/30/21 13:01 [facility] (Rec: 03/30/21 14:39 [facility] [id number]) Posture Evaluation Laurita Postural Classification System Laurita Postural Classifications Posterior/Anterior Lumbar Protective Mechanism Left AP 0 Lumbar Protective Mechanism Right AP 0 Lumbar Protective Mechanism Left PA 2 Lumbar Protective Mechanism Right PA 2 PT-OP-K Range of Motion Start: 01/21/21 17:48 Freq: Status: Active Protocol: Document 01/22/21 13:43 [facility] (Rec: 01/22/21 14:36 [facility] [id number]) Lumbar Spine Range of Motion Lumbar Spine Active Degrees Rotation Left 45 Rotation Right 30 PT-OP-L Special Tests Start: 01/21/21 17:48 Freq: Status: Active Protocol: Document 01/22/21 13:43 [facility] (Rec: 01/22/21 14:36 [facility] [id number]) Special Tests Lumbar Spine Special Tests Slump Test Results R positive SLR Test Results 88 R HS tightness Comments 60 L-pain in LB-positive PT-OP-M Strength Start: 01/21/21 17:48 Freq: Status: Active Protocol: Document 03/30/21 13:01 [facility] (Rec: 03/30/21 14:39 [facility] [id number]) Hip Strength Hip Manual Muscle Testing Right Flexion (L2) 4 Good Extension (S1) 4 Good Abduction 4 Good Adduction 4- Good- External Rotation 4 Good Internal Rotation 4 Good Left Flexion (L2) 4 Good Extension (S1) 4+ Good+ Abduction 4 Good Adduction 4 Good External Rotation 4+ Good+ Internal Rotation 5 Normal Knee Strength Knee Manual Muscle Testing Right Flexion (S2) 4+ Good+ Extension (L3) 5 Normal Left Flexion (S2) 4+ Good+ Extension (L3) 5 Normal Ankle/Foot Strength Ankle and Foot Manual Muscle Testing Right Dorsiflexion (L4) 5 Normal Plantarflexion (S1) 4- Good- Comments 10 heel raises Left Dorsiflexion (L4) 5 Normal Plantarflexion (S1) 4 Good Comments 10 heel raises PT-OP-Q Treatments Start: 01/21/21 17:48 Freq: Status: Active Protocol: Document 04/06/21 12:57 [facility] (Rec: 04/06/21 13:49 [facility] [id number]) Therapeutic Exercises Supine Exercises core Supine Exercise Name 1. SLR w/core 2. BKFO Side bilateral Reps/Minutes 10 ea Comments core focus LTR Supine Exercise Name comfortable range Side bilateral Reps/Minutes 12 Comments max cues for segmental control Standing Exercises lunge Standing Exercise Name at bar Side bilateral Reps/Minutes 8 ea Comments cues for no torso rotation hip hinge Standing Exercise Name 1. seated 2. standing Side bilateral Reps/Minutes 30 ea Comments dowel on back very small range squat Standing Exercise Name mini w/dowel Side bilateral Reps/Minutes 8 Manual Therapy Treatment Soft Tissue Mobilization 5 Body Location L QL & ES& sup lat iliac crest bordr Mobilization Type Myofascial Release,Rolling Intensity/Depth Moderate Comments w/R w/ant elev/post dep Joint Mobilizations 4 Joint lumbar Direction transverse glide R L1-2 Grade II Neuro Re-Education Treatment Other Activities 1 Details sustained holds ant elevation L PT-OP-R Modalities Start: 01/21/21 17:48 Freq: Status: Active Protocol: Document 03/16/21 12:59 [facility] (Rec: 03/16/21 13:47 [facility] [id number]) Hot Pack/Cold Pack Treatment Cold Pack Location lumbar Patient Position Prone Treatment Duration (minutes) 10 PT-OP-S Aquatic Treatment Start: 04/10/21 14:29 Freq: Status: Active Protocol: Document 04/10/21 14:30 [facility] (Rec: 04/10/21 14:59 [facility] [id number]) Aquatics Treatment Pool Entry/Exit Pool Entry/Exit Method Stairs Assistance Independent Water Walking Lunge Walk Water Level Waist Level Level of Assistance Verbal Cues Marching Water Level Chest Level Level of Assistance Verbal Cues backward w/BS arms Water Level Chest Level Level of Assistance Verbal Cues fw,bk,s to s Water Level Chest Level Level of Assistance Verbal Cues Comments pt would jerk his body and lose balance occasionally Lower Extremity Exercises squats Details at wall Water Level Waist Level Reps/Duration 10 Comments vc for back alignment Lower Extremity Stretches piriformis Details at wall Body Position Sitting Water Level Waist Level Reps/Duration 2 x 30 sec B SNTC, DKTC Details at wall Body Position Standing Reps/Duration 2 x 30 sec B and DKTC hip flexors Details at wall Body Position Standing Water Level Waist Level Reps/Duration 2 x 30 se B HS, Quads Details at stairs Body Position Standing Reps/Duration 2 x 30 sec ea Upper Extremity Exercises open book Body Position Standing Water Level Chest Level Reps/Duration 10 trunk rotations with 90/90 arms Body Position Standing Water Level Chest Level Reps/Duration 10 HABD/HADD Body Position Standing Water Level Chest Level Reps/Duration 10 lat pulldown Body Position Standing Water Level Chest Level Reps/Duration 10 Spinal Exercises hip hinge reaching fwd Details facing wall, hands on wall Water Level Waist Level Reps/Duration 10 Comments vc to maintain straight back Balance seated on noodle Water Level Chest Level Equipment lg noodle Reps/Duration 5 min Comments feet on floor, lg noodle held in front; difficulty sitting erect PT-OP-T Assessment and Plan Start: 01/21/21 17:48 Freq: Status: Active Protocol: Document 04/10/21 14:30 [facility] (Rec: 04/10/21 14:59 [facility] [id number]) Physical Therapy Assessment Rehab Potential Rehabilitation Potential Fair Evaluation Complexity Number of Personal Factors/Comorbidities 3 or More Number of Body Systems Impaired 4 or More Clinical Presentation at Evaluation Evolving Impairments Impairments Activity Tolerance,Balance, Functional Activities, Functional Mobility,Gait,Pain, Posture,ROM,Soft Tissue Mobility,Strength Goals activities Short Term Goal (STG) Pt will be able to demo good lifting mechanics for PT in order to dec pain when doing lifting activities at home. 13-still bends at tspine to worm picker something from gorund STG Duration 04/30/21 Dairy Lab Technician Goal (LTG) Pt will be able to lift and move objects in house w/o inc of pain more than 08/04. 1/3-can lift up to 50# from floor to table if he focuses on posture 10/04 LTG Duration 05/28/21 APRYL Impairment 23/50 Short Term Goal (STG) Pt will improve score to no higher than 18/50 to show improved functional ability. 03/30-30/ STG Duration 04/30/21 Dairy Lab Technician Goal (LTG) Pt will improve score to no higher than 13/50 to show improved functional ability. LTG Duration 05/28/21 strength Short Term Goal (STG) Pt will perform HEP w/good mechanics w/o cues needed 1/3-improving but cues still required STG Duration 04/30/21 Dairy Lab Technician Goal (LTG) Pt will score at least 3/5 on EFT and LPM and score 5/5 LE strength in all planes to allow for greater ease of movement 1/3-some improvement LTG Duration 05/28/21 balance Short Term Goal (STG) Pt will be able to turn corners w/o feeling of LOB. 1/3-no change STG Duration 04/30/21 Shelter Goal (LTG) Pt will be able to do SLS at least 8 sec B to show improved balance.(current 1 sec R, 3 L ) 3- no change 1 sec R, L 2 sec LTG Duration 05/28/21 Assessment Summary Assessment Pt dd well with supine exercises but still needed cues w/BKFO and LTR. Hip hinging was very difficult for pt as he tends to flex spine. Improved ant elvation an dpost dep after manual AQUATICS: Pt had multiple LOB for entire duration of session . Able to self-correct. LOB was jerky movement which resembled a body tremor then pt would stop and resume activity. He performed UE exercises well but had diffuculty with coordination and balance sitting on lg noodle even with feet on floor and second noodle in front of him. Pt had no c/o pain during session and exited pool and walked to the locker room without jerky LOB. Physical Therapy Plan Frequency and Duration Frequency of Treatment 1-2x/week Duration of Treatment 2 months Plan of Care Start Date 03/30/21 Plan of Care End Date 05/28/21 Therapeutic Interventions Therapeutic Interventions Aquatic Therapy,Balance Training,Gait Training,Home Exercise Program,Joint Mobilizations,Manual Therapy, Neuromuscular Re-education, Patient/Caregiver Education, Self-Care/Home Management,Soft Tissue Mobilization,Taping, Therapeutic Activities, Therapeutic Exercises Modalities Cold Pack/Ice Massage,Electric Stimulation,Hot Packs, Ultrasound Next Visit Focus/Plan Next Note Type Treatment Note Next Visit Plan cont to work on HEP & manual for pain relief
--- NOTE | 2021-04-13 18:20 | PT.OTN ---
Current Diagnoses Spondylosis without myelopathy or radiculopathy, thoracic region (04/13/21) Spinal stenosis, lumbar region with neurogenic claudication (04/13/21) Muscle weakness (generalized) (04/13/21) Difficulty in walking, not elsewhere classified (04/13/21) Abnormal posture (04/13/21) Physical Therapy Treatment Note PT-OP-A Visit Information Start: 01/21/21 17:48 Freq: Status: Active Protocol: Document 04/13/21 12:58 [facility] (Rec: 04/13/21 18:20 [facility] [id number]) Out-Patient Physical Therapy Visit Information Visit Information Visit Type Treatment Note Visit Note 07/05 Visit Start Time 13:00 Visit Stop Time 13:42 Total Visit Minutes 42 Visit Number 10 Number of SUBSTATION WIREMAN Visits 0 PT-OP-B Current Condition Start: 01/21/21 17:48 Freq: Status: Active Protocol: Document 01/22/21 13:43 [facility] (Rec: 01/22/21 14:36 [facility] [id number]) Current Condition History of Current Condition Onset Date chronic Current Complaints thoracic and lumbar pain History of Current Condition Pt reports Sept was pretty rough. He is coming off oxy at this time. He was fixing up a gutter and there was a yellow jacket nest and he got a lot of bites and fell off the ladder and hit his head. He is on prednisone to help w/ inflamation since mid Nov and was going off oxy for 10 day of prednisone but went back on oxy after. He had an appt 2 weeks ago to redo thoracic ablation (T10-12) and is awaiting for it to be scheduled then a few weeks later get lumbar block. Pt reports he cont HEP and DO rx. He saw Dr. Jimenez and improved R hip mobility and was roseanne to get a pop which felt good. He does 10 min ea of bike, stair and treadmill as many days a week he can. Can walk one mile now. Pt reports pain level is higher than he would like. He is coming off oxy now (5mg x5x day). He wants to get off the oxy and started 2 days ago to come off oxy. Reports he has been doing some [place] chi via videos. Pt reports he can't do much around of the house. Motivation is limiting him too . Pt reports changing position and turning corners increases pain and pt notes dec balance . Prior Treatments and Tests DO, PT mult bouts in past, ablations & working w/paint formulator Treatment Goals Patient/Caregiver Goals keep R hip going right way, be able to lift and move stuff in shop PT-OP-C Subjective Start: 01/21/21 17:48 Freq: Status: Active Protocol: Document 04/13/21 12:58 [facility] (Rec: 04/13/21 18:20 [facility] [id number]) OP-PT Subjective Patient Comments Patient Comments Pt reports not a lot of pain today but had acupuncture this AM. Notes pool went well and was effective. Less sharp pain . Pt reports he got good relieving pops out of R hip too. Pt reports most of the thoracic pain is from where the abation is. Patient Reported Progress Improving PT-OP-D Balance Start: 01/21/21 17:48 Freq: Status: Active Protocol: Document 01/22/21 13:43 [facility] (Rec: 01/22/21 14:36 [facility] [id number]) Balance Tests Single Limb Standing Single Limb- Right 1 sec Single Limb- Left 3 sec PT-OP-F Manual Assessment Start: 01/21/21 17:48 Freq: Status: Active Protocol: Document 01/22/21 13:43 [facility] (Rec: 01/22/21 14:36 [facility] [id number]) Manual Assessments Soft Tissue Assessment Soft Tissue Mobility Assessment all lumbar and thoracic and R glute tender PT-OP-G Mobility & Gait Start: 01/21/21 17:48 Freq: Status: Active Protocol: Document 01/22/21 13:43 [facility] (Rec: 01/22/21 14:36 [facility] [id number]) OP Gait Assessment Comments Gait Comments Amb WNL except after standing ext then staggeres to side often and reaches for wall w/ lat leaning PT-OP-J Posture/Palpation/Skin Start: 01/21/21 17:48 Freq: Status: Active Protocol: Document 03/30/21 13:01 [facility] (Rec: 03/30/21 14:39 [facility] [id number]) Posture Evaluation Laurita Postural Classification System Laurita Postural Classifications Posterior/Anterior Lumbar Protective Mechanism Left AP 0 Lumbar Protective Mechanism Right AP 0 Lumbar Protective Mechanism Left PA 2 Lumbar Protective Mechanism Right PA 2 PT-OP-K Range of Motion Start: 01/21/21 17:48 Freq: Status: Active Protocol: Document 01/22/21 13:43 [facility] (Rec: 01/22/21 14:36 [facility] [id number]) Lumbar Spine Range of Motion Lumbar Spine Active Degrees Rotation Left 45 Rotation Right 30 PT-OP-L Special Tests Start: 01/21/21 17:48 Freq: Status: Active Protocol: Document 01/22/21 13:43 [facility] (Rec: 01/22/21 14:36 [facility] [id number]) Special Tests Lumbar Spine Special Tests Slump Test Results R positive SLR Test Results 88 R HS tightness Comments 60 L-pain in LB-positive PT-OP-M Strength Start: 01/21/21 17:48 Freq: Status: Active Protocol: Document 03/30/21 13:01 [facility] (Rec: 03/30/21 14:39 [facility] [id number]) Hip Strength Hip Manual Muscle Testing Right Flexion (L2) 4 Good Extension (S1) 4 Good Abduction 4 Good Adduction 4- Good- External Rotation 4 Good Internal Rotation 4 Good Left Flexion (L2) 4 Good Extension (S1) 4+ Good+ Abduction 4 Good Adduction 4 Good External Rotation 4+ Good+ Internal Rotation 5 Normal Knee Strength Knee Manual Muscle Testing Right Flexion (S2) 4+ Good+ Extension (L3) 5 Normal Left Flexion (S2) 4+ Good+ Extension (L3) 5 Normal Ankle/Foot Strength Ankle and Foot Manual Muscle Testing Right Dorsiflexion (L4) 5 Normal Plantarflexion (S1) 4- Good- Comments 10 heel raises Left Dorsiflexion (L4) 5 Normal Plantarflexion (S1) 4 Good Comments 10 heel raises PT-OP-Q Treatments Start: 01/21/21 17:48 Freq: Status: Active Protocol: Document 04/13/21 12:58 [facility] (Rec: 04/13/21 18:20 [facility] [id number]) Therapeutic Exercises Supine Exercises core Supine Exercise Name BKFO Side bilateral Reps/Minutes 10 ea Comments core focus LTR Supine Exercise Name comfortable range Side bilateral Reps/Minutes 12 Comments max cues for segmental controlwhen bringing legs up to L Standing Exercises hip hinge Standing Exercise Name 1. seated 2. standing Side bilateral Reps/Minutes 30 ea Comments dowel on back very small range squat Standing Exercise Name mini w/dowel Side bilateral Reps/Minutes 10 Manual Therapy Treatment Soft Tissue Mobilization 5 Body Location R QL & ES& sup lat iliac crest bordr Mobilization Type Myofascial Release,Rolling Intensity/Depth Moderate Comments w/R w/ant elev/post dep Self-Care/Home Management Treatment Education Other Education edu on cont aquatic and its benefit; discussed pt is pointing to R side of lumbar area around L2 where there is his old incision from his cysts from last year vs thoracic region. edu to call pain clinic to discuss pain after ablation and have them assess and determine if any issues. PT-OP-R Modalities Start: 01/21/21 17:48 Freq: Status: Active Protocol: Document 03/16/21 12:59 [facility] (Rec: 03/16/21 13:47 [facility] [id number]) Hot Pack/Cold Pack Treatment Cold Pack Location lumbar Patient Position Prone Treatment Duration (minutes) 10 PT-OP-S Aquatic Treatment Start: 04/10/21 14:29 Freq: Status: Active Protocol: Document 04/10/21 14:30 [facility] (Rec: 04/10/21 14:59 [facility] [id number]) Aquatics Treatment Pool Entry/Exit Pool Entry/Exit Method Stairs Assistance Independent Water Walking Lunge Walk Water Level Waist Level Level of Assistance Verbal Cues Marching Water Level Chest Level Level of Assistance Verbal Cues backward w/BS arms Water Level Chest Level Level of Assistance Verbal Cues fw,bk,s to s Water Level Chest Level Level of Assistance Verbal Cues Comments pt would jerk his body and lose balance occasionally Lower Extremity Exercises squats Details at wall Water Level Waist Level Reps/Duration 10 Comments vc for back alignment Lower Extremity Stretches piriformis Details at wall Body Position Sitting Water Level Waist Level Reps/Duration 2 x 30 sec B SNTC, DKTC Details at wall Body Position Standing Reps/Duration 2 x 30 sec B and DKTC hip flexors Details at wall Body Position Standing Water Level Waist Level Reps/Duration 2 x 30 se B HS, Quads Details at stairs Body Position Standing Reps/Duration 2 x 30 sec ea Upper Extremity Exercises open book Body Position Standing Water Level Chest Level Reps/Duration 10 trunk rotations with 90/90 arms Body Position Standing Water Level Chest Level Reps/Duration 10 HABD/HADD Body Position Standing Water Level Chest Level Reps/Duration 10 lat pulldown Body Position Standing Water Level Chest Level Reps/Duration 10 Spinal Exercises hip hinge reaching fwd Details facing wall, hands on wall Water Level Waist Level Reps/Duration 10 Comments vc to maintain straight back Balance seated on noodle Water Level Chest Level Equipment lg noodle Reps/Duration 5 min Comments feet on floor, lg noodle held in front; difficulty sitting erect PT-OP-T Assessment and Plan Start: 01/21/21 17:48 Freq: Status: Active Protocol: Document 04/13/21 12:58 [facility] (Rec: 04/13/21 18:20 [facility] [id number]) Physical Therapy Assessment Goals activities Short Term Goal (STG) Pt will be able to demo good lifting mechanics for PT in order to dec pain when doing lifting activities at home. 1/3-still bends at tspine to pickling drum operator something from gorund STG Duration 04/30/21 Usp Goal (LTG) Pt will be able to lift and move objects in house w/o inc of pain more than 5/10. 1/3-can lift up to 50# from floor to table if he focuses on posture 10/04 LTG Duration 05/28/21 APRYL Impairment 23/50 Short Term Goal (STG) Pt will improve score to no higher than 18/50 to show improved functional ability. 03/30-30/ STG Duration 04/30/21 Usp Goal (LTG) Pt will improve score to no higher than 13/50 to show improved functional ability. LTG Duration 05/28/21 strength Short Term Goal (STG) Pt will perform HEP w/good mechanics w/o cues needed 1/3-improving but cues still required STG Duration 04/30/21 Usp Goal (LTG) Pt will score at least 3/5 on EFT and LPM and score 5/5 LE strength in all planes to allow for greater ease of movement 1/3-some improvement LTG Duration 05/28/21 balance Short Term Goal (STG) Pt will be able to turn corners w/o feeling of LOB. 1/3-no change STG Duration 04/30/21 Aquacultural Worker Supervisor Goal (LTG) Pt will be able to do SLS at least 8 sec B to show improved balance.(current 1 sec R, 3 L ) 13- no change 1 sec R, L 2 sec LTG Duration 05/28/21 Assessment Summary Assessment Pt still rquries ceuings when knees coming back to L for form w/LTR but much improved on R. He still requires cues w /BKFO for avoiding lumbar ext and rot at end range hip rot. Improved hip hinge seated but still difficult in standing but improved w/pt cued to hold ribcage Physical Therapy Plan Frequency and Duration Frequency of Treatment 1-2x/week Duration of Treatment 2 months Plan of Care Start Date 03/30/21 Plan of Care End Date 05/28/21 Next Visit Focus/Plan Next Note Type Treatment Note Next Visit Plan cont to work on HEP & manual for pain relief
--- NOTE | 2021-04-17 15:10 | PT.OTN ---
Current Diagnoses Spondylosis without myelopathy or radiculopathy, thoracic region (04/17/21) Spinal stenosis, lumbar region with neurogenic claudication (04/17/21) Muscle weakness (generalized) (04/17/21) Difficulty in walking, not elsewhere classified (04/17/21) Abnormal posture (04/17/21) Physical Therapy Treatment Note PT-OP-A Visit Information Start: 01/21/21 17:48 Freq: Status: Active Protocol: Document 04/17/21 14:39 [facility] (Rec: 04/17/21 15:10 [facility] [id number]) Out-Patient Physical Therapy Visit Information Visit Information Visit Type Aquatic Treatment Note Visit Note 08/04 Visit Start Time 11:45 Visit Stop Time 12:30 Total Visit Minutes 43 Visit Number 11 Number of PERSONNEL MANAGER Visits 1 PT-OP-B Current Condition Start: 01/21/21 17:48 Freq: Status: Active Protocol: Document 01/22/21 13:43 [facility] (Rec: 01/22/21 14:36 [facility] [id number]) Current Condition History of Current Condition Onset Date chronic Current Complaints thoracic and lumbar pain History of Current Condition Pt reports Sept was pretty rough. He is coming off oxy at this time. He was fixing up a gutter and there was a yellow jacket nest and he got a lot of bites and fell off the ladder and hit his head. He is on prednisone to help w/ inflamation since mid Nov and was going off oxy for 10 day of prednisone but went back on oxy after. He had an appt 2 weeks ago to redo thoracic ablation (T10-12) and is awaiting for it to be scheduled then a few weeks later get lumbar block. Pt reports he cont HEP and DO rx. He saw Dr. Jimenez and improved R hip mobility and was roseanne to get a pop which felt good. He does 10 min ea of bike, stair and treadmill as many days a week he can. Can walk one mile now. Pt reports pain level is higher than he would like. He is coming off oxy now (5mg x5x day). He wants to get off the oxy and started 2 days ago to come off oxy. Reports he has been doing some [place] chi via videos. Pt reports he can't do much around of the house. Motivation is limiting him too . Pt reports changing position and turning corners increases pain and pt notes dec balance . Prior Treatments and Tests DO, PT mult bouts in past, ablations & working w/pattern painter Treatment Goals Patient/Caregiver Goals keep R hip going right way, be able to lift and move stuff in shop PT-OP-C Subjective Start: 01/21/21 17:48 Freq: Status: Active Protocol: Document 04/17/21 14:39 [facility] (Rec: 04/17/21 15:10 [facility] [id number]) OP-PT Subjective Patient Comments Patient Comments Pt states he responded well to AT last week. States he was a little sore but it was muscle sore, not pain. PT-OP-D Balance Start: 01/21/21 17:48 Freq: Status: Active Protocol: Document 01/22/21 13:43 [facility] (Rec: 01/22/21 14:36 [facility] [id number]) Balance Tests Single Limb Standing Single Limb- Right 1 sec Single Limb- Left 3 sec PT-OP-F Manual Assessment Start: 01/21/21 17:48 Freq: Status: Active Protocol: Document 01/22/21 13:43 [facility] (Rec: 01/22/21 14:36 [facility] [id number]) Manual Assessments Soft Tissue Assessment Soft Tissue Mobility Assessment all lumbar and thoracic and R glute tender PT-OP-G Mobility & Gait Start: 01/21/21 17:48 Freq: Status: Active Protocol: Document 01/22/21 13:43 [facility] (Rec: 01/22/21 14:36 [facility] [id number]) OP Gait Assessment Comments Gait Comments Amb WNL except after standing ext then staggeres to side often and reaches for wall w/ lat leaning PT-OP-J Posture/Palpation/Skin Start: 01/21/21 17:48 Freq: Status: Active Protocol: Document 03/30/21 13:01 [facility] (Rec: 03/30/21 14:39 [facility] [id number]) Posture Evaluation Laurita Postural Classification System Laurita Postural Classifications Posterior/Anterior Lumbar Protective Mechanism Left AP 0 Lumbar Protective Mechanism Right AP 0 Lumbar Protective Mechanism Left PA 2 Lumbar Protective Mechanism Right PA 2 PT-OP-K Range of Motion Start: 01/21/21 17:48 Freq: Status: Active Protocol: Document 01/22/21 13:43 [facility] (Rec: 01/22/21 14:36 [facility] [id number]) Lumbar Spine Range of Motion Lumbar Spine Active Degrees Rotation Left 45 Rotation Right 30 PT-OP-L Special Tests Start: 01/21/21 17:48 Freq: Status: Active Protocol: Document 01/22/21 13:43 [facility] (Rec: 01/22/21 14:36 [facility] [id number]) Special Tests Lumbar Spine Special Tests Slump Test Results R positive SLR Test Results 88 R HS tightness Comments 60 L-pain in LB-positive PT-OP-M Strength Start: 01/21/21 17:48 Freq: Status: Active Protocol: Document 03/30/21 13:01 [facility] (Rec: 03/30/21 14:39 [facility] [id number]) Hip Strength Hip Manual Muscle Testing Right Flexion (L2) 4 Good Extension (S1) 4 Good Abduction 4 Good Adduction 4- Good- External Rotation 4 Good Internal Rotation 4 Good Left Flexion (L2) 4 Good Extension (S1) 4+ Good+ Abduction 4 Good Adduction 4 Good External Rotation 4+ Good+ Internal Rotation 5 Normal Knee Strength Knee Manual Muscle Testing Right Flexion (S2) 4+ Good+ Extension (L3) 5 Normal Left Flexion (S2) 4+ Good+ Extension (L3) 5 Normal Ankle/Foot Strength Ankle and Foot Manual Muscle Testing Right Dorsiflexion (L4) 5 Normal Plantarflexion (S1) 4- Good- Comments 10 heel raises Left Dorsiflexion (L4) 5 Normal Plantarflexion (S1) 4 Good Comments 10 heel raises PT-OP-Q Treatments Start: 01/21/21 17:48 Freq: Status: Active Protocol: Document 04/13/21 12:58 [facility] (Rec: 04/13/21 18:20 [facility] [id number]) Therapeutic Exercises Supine Exercises core Supine Exercise Name BKFO Side bilateral Reps/Minutes 10 ea Comments core focus LTR Supine Exercise Name comfortable range Side bilateral Reps/Minutes 12 Comments max cues for segmental controlwhen bringing legs up to L Standing Exercises hip hinge Standing Exercise Name 1. seated 2. standing Side bilateral Reps/Minutes 30 ea Comments dowel on back very small range squat Standing Exercise Name mini w/dowel Side bilateral Reps/Minutes 10 Manual Therapy Treatment Soft Tissue Mobilization 5 Body Location R QL & ES& sup lat iliac crest bordr Mobilization Type Myofascial Release,Rolling Intensity/Depth Moderate Comments w/R w/ant elev/post dep Self-Care/Home Management Treatment Education Other Education edu on cont aquatic and its benefit; discussed pt is pointing to R side of lumbar area around L2 where there is his old incision from his cysts from last year vs thoracic region. edu to call pain clinic to discuss pain after ablation and have them assess and determine if any issues. PT-OP-R Modalities Start: 01/21/21 17:48 Freq: Status: Active Protocol: Document 03/16/21 12:59 [facility] (Rec: 03/16/21 13:47 [facility] [id number]) Hot Pack/Cold Pack Treatment Cold Pack Location lumbar Patient Position Prone Treatment Duration (minutes) 10 PT-OP-S Aquatic Treatment Start: 04/10/21 14:29 Freq: Status: Active Protocol: Document 04/17/21 14:39 [facility] (Rec: 04/17/21 15:10 [facility] [id number]) Aquatics Treatment Pool Entry/Exit Pool Entry/Exit Method Stairs Assistance Independent Water Walking shallow water jog Water Level Chest Level Comments cues for soft landing and foot position Lunge Walk Water Level Waist Level Level of Assistance Verbal Cues Marching Water Level Chest Level Level of Assistance Verbal Cues fw,bk,s to s Water Level Chest Level Level of Assistance Verbal Cues Comments faster pace than last session Lower Extremity Exercises 4 way hip Details HH on wall Body Position Standing Water Level Chest Level Reps/Duration 15 B each Comments reduced AB/AD with RLE to stay within painfree range Lower Extremity Stretches piriformis Details at wall Body Position Sitting Water Level Waist Level Reps/Duration 2 x 30 sec B SNTC, DKTC Details at wall Body Position Standing Reps/Duration 2 x 30 sec B and DKTC hip flexors Details at wall Body Position Standing Water Level Waist Level Reps/Duration 2 x 30 se B HS, Quads Details at stairs Body Position Standing Reps/Duration 2 x 30 sec ea Upper Extremity Exercises open book Body Position Standing Water Level Chest Level Reps/Duration 10 trunk rotations with 90/90 arms Body Position Standing Water Level Chest Level Reps/Duration 10 HABD/HADD Body Position Standing Water Level Chest Level Reps/Duration 10 lat pulldown Body Position Standing Water Level Chest Level Reps/Duration 10 Balance seated on noodle Water Level Chest Level Equipment lg noodle Reps/Duration 3 min Comments improved without feet on floor and no additional noodle for support [place] Activities [place] Activities Bicycle,Bicycle Backwards, Cross Country,Running Other Activities Abd pull down at wall T hang Equipment belt, M BBs Comments cues for maintaining vertical position occasional jerky movements PT-OP-T Assessment and Plan Start: 01/21/21 17:48 Freq: Status: Active Protocol: Document 04/17/21 14:39 [facility] (Rec: 04/17/21 15:10 [facility] [id number]) Physical Therapy Assessment Rehab Potential Rehabilitation Potential Fair Evaluation Complexity Number of Personal Factors/Comorbidities 3 or More Number of Body Systems Impaired 4 or More Clinical Presentation at Evaluation Evolving Impairments Impairments Activity Tolerance,Balance, Functional Activities, Functional Mobility,Gait,Pain, Posture,ROM,Soft Tissue Mobility,Strength Goals activities Short Term Goal (STG) Pt will be able to demo good lifting mechanics for PT in order to dec pain when doing lifting activities at home. 1/3-still bends at tspine to orange picker something from gorund STG Duration 04/30/21 Aircraft Rigging And Controls Mechanic Goal (LTG) Pt will be able to lift and move objects in house w/o inc of pain more than 10. 13-can lift up to 50# from floor to table if he focuses on posture 10/04 LTG Duration 05/28/21 APRYL Impairment 23/50 Short Term Goal (STG) Pt will improve score to no higher than 18/50 to show improved functional ability. 03/30-30/50 STG Duration 04/30/21 Aircraft Rigging And Controls Mechanic Goal (LTG) Pt will improve score to no higher than 13/50 to show improved functional ability. LTG Duration 05/28/21 strength Short Term Goal (STG) Pt will perform HEP w/good mechanics w/o cues needed 1/3-improving but cues still required STG Duration 04/30/21 Halfway Goal (LTG) Pt will score at least 3/5 on EFT and LPM and score 5/5 LE strength in all planes to allow for greater ease of movement 1/3-some improvement LTG Duration 05/28/21 balance Short Term Goal (STG) Pt will be able to turn corners w/o feeling of LOB. 1/3-no change STG Duration 04/30/21 Aircraft Rigging And Controls Mechanic Goal (LTG) Pt will be able to do SLS at least 8 sec B to show improved balance.(current 1 sec R, 3 L ) 03/30- no change 1 sec R, L 2 sec LTG Duration 05/28/21 Assessment Summary Assessment Pt still rquries ceuings when knees coming back to L for form w/LTR but much improved on R. He still requires cues w /BKFO for avoiding lumbar ext and rot at end range hip rot. Improved hip hinge seated but still difficult in standing but improved w/pt cued to hold ribcage AQUATICS: Pt without jerky movements in shallow water exercises. He would occasionally stop an activity and rest for several seconds then resume. In deep water, pt needed cueing for vertical position. He demonstrated some incoordination but will most likely improve with more experience. Physical Therapy Plan Frequency and Duration Frequency of Treatment 1-2x/week Duration of Treatment 2 months Plan of Care Start Date 03/30/21 Plan of Care End Date 05/28/21 Therapeutic Interventions Therapeutic Interventions Aquatic Therapy,Balance Training,Gait Training,Home Exercise Program,Joint Mobilizations,Manual Therapy, Neuromuscular Re-education, Patient/Caregiver Education, Self-Care/Home Management,Soft Tissue Mobilization,Taping, Therapeutic Activities, Therapeutic Exercises Modalities Cold Pack/Ice Massage,Electric Stimulation,Hot Packs, Ultrasound Next Visit Focus/Plan Next Note Type Treatment Note Next Visit Plan cont to work on HEP & manual for pain relief Advance balance and core stabilization activities.
--- NOTE | 2021-04-20 13:51 | PT.OTN ---
Current Diagnoses Spondylosis without myelopathy or radiculopathy, thoracic region (04/20/21) Spinal stenosis, lumbar region with neurogenic claudication (04/20/21) Muscle weakness (generalized) (04/20/21) Difficulty in walking, not elsewhere classified (04/20/21) Abnormal posture (04/20/21) Physical Therapy Treatment Note PT-OP-A Visit Information Start: 01/21/21 17:48 Freq: Status: Active Protocol: Document 04/20/21 13:15 [facility] (Rec: 04/20/21 13:51 [facility] [id number]) Out-Patient Physical Therapy Visit Information Visit Information Visit Type Treatment Note Visit Note 09/04 Visit Start Time 13:05 Visit Stop Time 13:55 Total Visit Minutes 50 Visit Number 12 Number of FRONT OFFICE SECRETARY Visits 0 PT-OP-B Current Condition Start: 01/21/21 17:48 Freq: Status: Active Protocol: Document 01/22/21 13:43 [facility] (Rec: 01/22/21 14:36 [facility] [id number]) Current Condition History of Current Condition Onset Date chronic Current Complaints thoracic and lumbar pain History of Current Condition Pt reports Sept was pretty rough. He is coming off oxy at this time. He was fixing up a gutter and there was a yellow jacket nest and he got a lot of bites and fell off the ladder and hit his head. He is on prednisone to help w/ inflamation since mid Nov and was going off oxy for 10 day of prednisone but went back on oxy after. He had an appt 2 weeks ago to redo thoracic ablation (T10-12) and is awaiting for it to be scheduled then a few weeks later get lumbar block. Pt reports he cont HEP and DO rx. He saw Dr. Jimenez and improved R hip mobility and was roseanne to get a pop which felt good. He does 10 min ea of bike, stair and treadmill as many days a week he can. Can walk one mile now. Pt reports pain level is higher than he would like. He is coming off oxy now (5mg x5x day). He wants to get off the oxy and started 2 days ago to come off oxy. Reports he has been doing some mitchell chi via videos. Pt reports he can't do much around of the house. Motivation is limiting him too . Pt reports changing position and turning corners increases pain and pt notes dec balance . Prior Treatments and Tests DO, PT mult bouts in past, ablations & working w/traffic line painter Treatment Goals Patient/Caregiver Goals keep R hip going right way, be able to lift and move stuff in shop PT-OP-C Subjective Start: 01/21/21 17:48 Freq: Status: Active Protocol: Document 04/20/21 13:15 [facility] (Rec: 04/20/21 13:51 [facility] [id number]) OP-PT Subjective Patient Comments Patient Comments Pt reports he feels like he overdid in aquatic fri. When asked why, he notes because his back (thoracic) started being locked up when he was making coffee this AM. Significant thoracic pain today PT-OP-D Balance Start: 01/21/21 17:48 Freq: Status: Active Protocol: Document 01/22/21 13:43 [facility] (Rec: 01/22/21 14:36 [facility] [id number]) Balance Tests Single Limb Standing Single Limb- Right 1 sec Single Limb- Left 3 sec PT-OP-F Manual Assessment Start: 01/21/21 17:48 Freq: Status: Active Protocol: Document 01/22/21 13:43 [facility] (Rec: 01/22/21 14:36 [facility] [id number]) Manual Assessments Soft Tissue Assessment Soft Tissue Mobility Assessment all lumbar and thoracic and R glute tender PT-OP-G Mobility & Gait Start: 01/21/21 17:48 Freq: Status: Active Protocol: Document 01/22/21 13:43 [facility] (Rec: 01/22/21 14:36 [facility] [id number]) OP Gait Assessment Comments Gait Comments Amb WNL except after standing ext then staggeres to side often and reaches for wall w/ lat leaning PT-OP-J Posture/Palpation/Skin Start: 01/21/21 17:48 Freq: Status: Active Protocol: Document 03/30/21 13:01 [facility] (Rec: 03/30/21 14:39 [facility] [id number]) Posture Evaluation Laurita Postural Classification System Laurita Postural Classifications Posterior/Anterior Lumbar Protective Mechanism Left AP 0 Lumbar Protective Mechanism Right AP 0 Lumbar Protective Mechanism Left PA 2 Lumbar Protective Mechanism Right PA 2 PT-OP-K Range of Motion Start: 01/21/21 17:48 Freq: Status: Active Protocol: Document 01/22/21 13:43 [facility] (Rec: 01/22/21 14:36 [facility] [id number]) Lumbar Spine Range of Motion Lumbar Spine Active Degrees Rotation Left 45 Rotation Right 30 PT-OP-L Special Tests Start: 01/21/21 17:48 Freq: Status: Active Protocol: Document 01/22/21 13:43 [facility] (Rec: 01/22/21 14:36 [facility] [id number]) Special Tests Lumbar Spine Special Tests Slump Test Results R positive SLR Test Results 88 R HS tightness Comments 60 L-pain in LB-positive PT-OP-M Strength Start: 01/21/21 17:48 Freq: Status: Active Protocol: Document 03/30/21 13:01 [facility] (Rec: 03/30/21 14:39 [facility] [id number]) Hip Strength Hip Manual Muscle Testing Right Flexion (L2) 4 Good Extension (S1) 4 Good Abduction 4 Good Adduction 4- Good- External Rotation 4 Good Internal Rotation 4 Good Left Flexion (L2) 4 Good Extension (S1) 4+ Good+ Abduction 4 Good Adduction 4 Good External Rotation 4+ Good+ Internal Rotation 5 Normal Knee Strength Knee Manual Muscle Testing Right Flexion (S2) 4+ Good+ Extension (L3) 5 Normal Left Flexion (S2) 4+ Good+ Extension (L3) 5 Normal Ankle/Foot Strength Ankle and Foot Manual Muscle Testing Right Dorsiflexion (L4) 5 Normal Plantarflexion (S1) 4- Good- Comments 10 heel raises Left Dorsiflexion (L4) 5 Normal Plantarflexion (S1) 4 Good Comments 10 heel raises PT-OP-Q Treatments Start: 01/21/21 17:48 Freq: Status: Active Protocol: Document 04/20/21 13:15 [facility] (Rec: 04/20/21 13:51 [facility] [id number]) Therapeutic Exercises Supine Exercises scap mobility Supine Exercise Name cross body stretch Side bilateral Reps/Minutes 2x8 core Supine Exercise Name BKFO Side bilateral Reps/Minutes 10 ea Comments core focus LTR Supine Exercise Name comfortable range Side bilateral Reps/Minutes 8 Comments mod cues for segmental controlwhen bringing legs up to L Other Exercises nemesio pose Other Exercise Name fwd & to sides Side bilateral Reps/Minutes 30 sec x3 ea quadruped Other Exercise Name cat.[email or web address] Side bilateral Reps/Minutes 2x8 Comments max cues for slow controlled motion Manual Therapy Treatment Soft Tissue Mobilization 4 Body Location thoracic paraspinals, rhomboids R Mobilization Type Rolling Intensity/Depth Moderate Body Position Prone Joint Mobilizations 4 Comments 1. UPA T 5-6 grad II 2. PA T5-7 grade II 3. rib 6 inf glide & UPA FM R PT-OP-R Modalities Start: 01/21/21 17:48 Freq: Status: Active Protocol: Document 04/20/21 13:15 [facility] (Rec: 04/20/21 13:51 [facility] [id number]) Hot Pack/Cold Pack Treatment Cold Pack Location lumbar & thoraic Patient Position Prone Treatment Duration (minutes) 10 PT-OP-S Aquatic Treatment Start: 04/10/21 14:29 Freq: Status: Active Protocol: Document 04/17/21 14:39 [facility] (Rec: 04/17/21 15:10 [facility] [id number]) Aquatics Treatment Pool Entry/Exit Pool Entry/Exit Method Stairs Assistance Independent Water Walking shallow water jog Water Level Chest Level Comments cues for soft landing and foot position Lunge Walk Water Level Waist Level Level of Assistance Verbal Cues Marching Water Level Chest Level Level of Assistance Verbal Cues fw,bk,s to s Water Level Chest Level Level of Assistance Verbal Cues Comments faster pace than last session Lower Extremity Exercises 4 way hip Details HH on wall Body Position Standing Water Level Chest Level Reps/Duration 15 B each Comments reduced AB/AD with RLE to stay within painfree range Lower Extremity Stretches piriformis Details at wall Body Position Sitting Water Level Waist Level Reps/Duration 2 x 30 sec B SNTC, DKTC Details at wall Body Position Standing Reps/Duration 2 x 30 sec B and DKTC hip flexors Details at wall Body Position Standing Water Level Waist Level Reps/Duration 2 x 30 se B HS, Quads Details at stairs Body Position Standing Reps/Duration 2 x 30 sec ea Upper Extremity Exercises open book Body Position Standing Water Level Chest Level Reps/Duration 10 trunk rotations with 90/90 arms Body Position Standing Water Level Chest Level Reps/Duration 10 HABD/HADD Body Position Standing Water Level Chest Level Reps/Duration 10 lat pulldown Body Position Standing Water Level Chest Level Reps/Duration 10 Balance seated on noodle Water Level Chest Level Equipment lg noodle Reps/Duration 3 min Comments improved without feet on floor and no additional noodle for support [place] Activities [place] Activities Bicycle,Bicycle Backwards, Cross Country,Running Other Activities Abd pull down at wall T hang Equipment belt, M BBs Comments cues for maintaining vertical position occasional jerky movements PT-OP-T Assessment and Plan Start: 01/21/21 17:48 Freq: Status: Active Protocol: Document 04/20/21 13:15 [facility] (Rec: 04/20/21 13:51 [facility] [id number]) Physical Therapy Assessment Goals activities Short Term Goal (STG) Pt will be able to demo good lifting mechanics for PT in order to dec pain when doing lifting activities at home. 1/3-still bends at tspine to picker operator something from gorund STG Duration 04/30/21 Sandstone Inspector Repairer Goal (LTG) Pt will be able to lift and move objects in house w/o inc of pain more than 08/04. 1/3-can lift up to 50# from floor to table if he focuses on posture 10/04 LTG Duration 05/28/21 APRYL Impairment Short Term Goal (STG) Pt will improve score to no higher than 18/50 to show improved functional ability. 03/30- STG Duration 04/30/21 Usp Goal (LTG) Pt will improve score to no higher than 13/50 to show improved functional ability. LTG Duration 05/28/21 strength Short Term Goal (STG) Pt will perform HEP w/good mechanics w/o cues needed 1/3-improving but cues still required STG Duration 04/30/21 Usp Goal (LTG) Pt will score at least 3/5 on EFT and LPM and score 5/5 LE strength in all planes to allow for greater ease of movement 1/3-some improvement LTG Duration 05/28/21 balance Short Term Goal (STG) Pt will be able to turn corners w/o feeling of LOB. 1/3-no change STG Duration 04/30/21 Usp Goal (LTG) Pt will be able to do SLS at least 8 sec B to show improved balance.(current 1 sec R, 3 L ) 1/3- no change 1 sec R, L 2 sec LTG Duration 05/28/21 Assessment Summary Assessment Signficant time spent working on ROM exercises for thoracic w/PT demo and max cues to stay in comfortable range d/t pt noting pain when he would push to far end ranges. R side of tspine and ribs limited which improved w/manual. Physical Therapy Plan Frequency and Duration Frequency of Treatment 1-2x/week Duration of Treatment 2 months Plan of Care Start Date 03/30/21 Plan of Care End Date 05/28/21 Next Visit Focus/Plan Next Note Type Treatment Note Next Visit Plan cont to work on HEP & manual for pain relief Advance balance and core stabilization activities.
--- NOTE | 2021-04-22 15:20 | PT.OTN ---
Current Diagnoses Spondylosis without myelopathy or radiculopathy, thoracic region (04/22/21) Spinal stenosis, lumbar region with neurogenic claudication (04/22/21) Muscle weakness (generalized) (04/22/21) Difficulty in walking, not elsewhere classified (04/22/21) Abnormal posture (04/22/21) Physical Therapy Treatment Note PT-OP-A Visit Information Start: 01/21/21 17:48 Freq: Status: Active Protocol: Document 04/22/21 14:41 [facility] (Rec: 04/22/21 15:20 [facility] [id number]) Out-Patient Physical Therapy Visit Information Visit Information Visit Type Treatment Note Visit Note 10/04 Visit Start Time 14:39 Visit Stop Time 15:25 Total Visit Minutes 46 Visit Number 13 Number of CHAIN TESTING MACHINE OPERATOR Visits 0 PT-OP-B Current Condition Start: 01/21/21 17:48 Freq: Status: Active Protocol: Document 01/22/21 13:43 [facility] (Rec: 01/22/21 14:36 [facility] [id number]) Current Condition History of Current Condition Onset Date chronic Current Complaints thoracic and lumbar pain History of Current Condition Pt reports Sept was pretty rough. He is coming off oxy at this time. He was fixing up a gutter and there was a yellow jacket nest and he got a lot of bites and fell off the ladder and hit his head. He is on prednisone to help w/ inflamation since mid Nov and was going off oxy for 10 day of prednisone but went back on oxy after. He had an appt 2 weeks ago to redo thoracic ablation (T10-12) and is awaiting for it to be scheduled then a few weeks later get lumbar block. Pt reports he cont HEP and DO rx. He saw Dr. Jimenez and improved R hip mobility and was roseanne to get a pop which felt good. He does 10 min ea of bike, stair and treadmill as many days a week he can. Can walk one mile now. Pt reports pain level is higher than he would like. He is coming off oxy now (5mg x5x day). He wants to get off the oxy and started 2 days ago to come off oxy. Reports he has been doing some mitchell chi via videos. Pt reports he can't do much around of the house. Motivation is limiting him too . Pt reports changing position and turning corners increases pain and pt notes dec balance . Prior Treatments and Tests DO, PT mult bouts in past, ablations & working w/silo painter Treatment Goals Patient/Caregiver Goals keep R hip going right way, be able to lift and move stuff in shop PT-OP-C Subjective Start: 01/21/21 17:48 Freq: Status: Active Protocol: Document 04/22/21 14:41 [facility] (Rec: 04/22/21 15:20 [facility] [id number]) OP-PT Subjective Patient Comments Patient Comments Pt reports still significant pain today which is why he cancelled his pool appt and change dto land. He did his stretches 2x today. He did do cardio yesterday and tuesday but not today d/t pain. His lubmar spine feels tired and thoracic is still very painfula nd feels difficult to breath PT-OP-D Balance Start: 01/21/21 17:48 Freq: Status: Active Protocol: Document 01/22/21 13:43 [facility] (Rec: 01/22/21 14:36 [facility] [id number]) Balance Tests Single Limb Standing Single Limb- Right 1 sec Single Limb- Left 3 sec PT-OP-F Manual Assessment Start: 01/21/21 17:48 Freq: Status: Active Protocol: Document 01/22/21 13:43 [facility] (Rec: 01/22/21 14:36 [facility] [id number]) Manual Assessments Soft Tissue Assessment Soft Tissue Mobility Assessment all lumbar and thoracic and R glute tender PT-OP-G Mobility & Gait Start: 01/21/21 17:48 Freq: Status: Active Protocol: Document 01/22/21 13:43 [facility] (Rec: 01/22/21 14:36 [facility] [id number]) OP Gait Assessment Comments Gait Comments Amb WNL except after standing ext then staggeres to side often and reaches for wall w/ lat leaning PT-OP-J Posture/Palpation/Skin Start: 01/21/21 17:48 Freq: Status: Active Protocol: Document 03/30/21 13:01 [facility] (Rec: 03/30/21 14:39 [facility] [id number]) Posture Evaluation Laurita Postural Classification System Laurita Postural Classifications Posterior/Anterior Lumbar Protective Mechanism Left AP 0 Lumbar Protective Mechanism Right AP 0 Lumbar Protective Mechanism Left PA 2 Lumbar Protective Mechanism Right PA 2 PT-OP-K Range of Motion Start: 01/21/21 17:48 Freq: Status: Active Protocol: Document 01/22/21 13:43 [facility] (Rec: 01/22/21 14:36 [facility] [id number]) Lumbar Spine Range of Motion Lumbar Spine Active Degrees Rotation Left 45 Rotation Right 30 PT-OP-L Special Tests Start: 01/21/21 17:48 Freq: Status: Active Protocol: Document 01/22/21 13:43 [facility] (Rec: 01/22/21 14:36 [facility] [id number]) Special Tests Lumbar Spine Special Tests Slump Test Results R positive SLR Test Results 88 R HS tightness Comments 60 L-pain in LB-positive PT-OP-M Strength Start: 01/21/21 17:48 Freq: Status: Active Protocol: Document 03/30/21 13:01 [facility] (Rec: 03/30/21 14:39 [facility] [id number]) Hip Strength Hip Manual Muscle Testing Right Flexion (L2) 4 Good Extension (S1) 4 Good Abduction 4 Good Adduction 4- Good- External Rotation 4 Good Internal Rotation 4 Good Left Flexion (L2) 4 Good Extension (S1) 4+ Good+ Abduction 4 Good Adduction 4 Good External Rotation 4+ Good+ Internal Rotation 5 Normal Knee Strength Knee Manual Muscle Testing Right Flexion (S2) 4+ Good+ Extension (L3) 5 Normal Left Flexion (S2) 4+ Good+ Extension (L3) 5 Normal Ankle/Foot Strength Ankle and Foot Manual Muscle Testing Right Dorsiflexion (L4) 5 Normal Plantarflexion (S1) 4- Good- Comments 10 heel raises Left Dorsiflexion (L4) 5 Normal Plantarflexion (S1) 4 Good Comments 10 heel raises PT-OP-Q Treatments Start: 01/21/21 17:48 Freq: Status: Active Protocol: Document 04/22/21 14:41 [facility] (Rec: 04/22/21 15:20 [facility] [id number]) Therapeutic Exercises Supine Exercises breathing Supine Exercise Name diaphragmatic breaths & ribcage expansion laterally Reps/Minutes 8 scap mobility Supine Exercise Name cross body stretch Side bilateral Reps/Minutes 30 sec Sidelying Exercises open book Sidelying Exercise Name fwd reach then torso rot Side bilateral Reps/Minutes 15 Comments comfortable range Other Exercises nemesio pose Other Exercise Name fwd & to sides Side bilateral Reps/Minutes 30 sec ea quadruped Other Exercise Name cat.[email or web address] Side bilateral Reps/Minutes 8 Comments cues for head and lumbar motion Manual Therapy Treatment Soft Tissue Mobilization 4 Body Location thoracic paraspinals, rhomboids R Mobilization Type Rolling Intensity/Depth Moderate Body Position Prone Joint Mobilizations 4 Comments 1. UPA T 6-8 grad II 2. PA T6-9 grade II Self-Care/Home Management Treatment Education Other Education edu for supine positioning including 2 pillows under legs to support them. discussion again re: pain psychologist beign helpful d/t pt noting feeling more emotional w/pain PT-OP-R Modalities Start: 01/21/21 17:48 Freq: Status: Active Protocol: Document 04/22/21 14:41 [facility] (Rec: 04/22/21 15:20 [facility] [id number]) Hot Pack/Cold Pack Treatment Cold Pack Location lumbar & thoraic Patient Position Prone Treatment Duration (minutes) 10 PT-OP-S Aquatic Treatment Start: 04/10/21 14:29 Freq: Status: Active Protocol: Document 04/17/21 14:39 [facility] (Rec: 04/17/21 15:10 [facility] [id number]) Aquatics Treatment Pool Entry/Exit Pool Entry/Exit Method Stairs Assistance Independent Water Walking shallow water jog Water Level Chest Level Comments cues for soft landing and foot position Lunge Walk Water Level Waist Level Level of Assistance Verbal Cues Marching Water Level Chest Level Level of Assistance Verbal Cues fw,bk,s to s Water Level Chest Level Level of Assistance Verbal Cues Comments faster pace than last session Lower Extremity Exercises 4 way hip Details HH on wall Body Position Standing Water Level Chest Level Reps/Duration 15 B each Comments reduced AB/AD with RLE to stay within painfree range Lower Extremity Stretches piriformis Details at wall Body Position Sitting Water Level Waist Level Reps/Duration 2 x 30 sec B SNTC, DKTC Details at wall Body Position Standing Reps/Duration 2 x 30 sec B and DKTC hip flexors Details at wall Body Position Standing Water Level Waist Level Reps/Duration 2 x 30 se B HS, Quads Details at stairs Body Position Standing Reps/Duration 2 x 30 sec ea Upper Extremity Exercises open book Body Position Standing Water Level Chest Level Reps/Duration 10 trunk rotations with 90/90 arms Body Position Standing Water Level Chest Level Reps/Duration 10 HABD/HADD Body Position Standing Water Level Chest Level Reps/Duration 10 lat pulldown Body Position Standing Water Level Chest Level Reps/Duration 10 Balance seated on noodle Water Level Chest Level Equipment lg noodle Reps/Duration 3 min Comments improved without feet on floor and no additional noodle for support [place] Activities [place] Activities Bicycle,Bicycle Backwards, Cross Country,Running Other Activities Abd pull down at wall T hang Equipment belt, M BBs Comments cues for maintaining vertical position occasional jerky movements PT-OP-T Assessment and Plan Start: 01/21/21 17:48 Freq: Status: Active Protocol: Document 04/22/21 14:41 [facility] (Rec: 04/22/21 15:20 [facility] [id number]) Physical Therapy Assessment Goals activities Short Term Goal (STG) Pt will be able to demo good lifting mechanics for PT in order to dec pain when doing lifting activities at home. 1/3-still bends at tspine to turkey picker something from gorund STG Duration 04/30/21 Longterm Goal (LTG) Pt will be able to lift and move objects in house w/o inc of pain more than 10. 1/3-can lift up to 50# from floor to table if he focuses on posture 10/04 LTG Duration 05/28/21 APRYL Impairment 23/50 Short Term Goal (STG) Pt will improve score to no higher than 18/50 to show improved functional ability. 1-30/50 STG Duration 04/30/21 Hand Button Splitter Goal (LTG) Pt will improve score to no higher than 13/50 to show improved functional ability. LTG Duration 05/28/21 strength Short Term Goal (STG) Pt will perform HEP w/good mechanics w/o cues needed 1/3-improving but cues still required STG Duration 04/30/21 Hand Button Splitter Goal (LTG) Pt will score at least 3/5 on EFT and LPM and score 5/5 LE strength in all planes to allow for greater ease of movement 1/3-some improvement LTG Duration 05/28/21 balance Short Term Goal (STG) Pt will be able to turn corners w/o feeling of LOB. 1/3-no change STG Duration 04/30/21 Hand Button Splitter Goal (LTG) Pt will be able to do SLS at least 8 sec B to show improved balance.(current 1 sec R, 3 L ) 1/3- no change 1 sec R, L 2 sec LTG Duration 05/28/21 Assessment Summary Assessment Pt overall did well with exercises w/less c/o pain today but pt did requrie cuieng for form. He still had stiffness in thoracic spine but more mm pliability today Physical Therapy Plan Frequency and Duration Frequency of Treatment 1-2x/week Duration of Treatment 2 months Plan of Care Start Date 03/30/21 Plan of Care End Date 05/28/21 Next Visit Focus/Plan Next Note Type Treatment Note Next Visit Plan cont to work on HEP & manual for pain relief Advance balance and core stabilization activities.
--- NOTE | 2021-04-27 13:48 | PT.OTN ---
Current Diagnoses Spondylosis without myelopathy or radiculopathy, thoracic region (04/27/21) Spinal stenosis, lumbar region with neurogenic claudication (04/27/21) Muscle weakness (generalized) (04/27/21) Difficulty in walking, not elsewhere classified (04/27/21) Abnormal posture (04/27/21) Physical Therapy Treatment Note PT-OP-A Visit Information Start: 01/21/21 17:48 Freq: Status: Active Protocol: Document 04/27/21 12:59 [facility] (Rec: 04/27/21 13:48 [facility] [id number]) Out-Patient Physical Therapy Visit Information Visit Information Visit Type Treatment Note Visit Note 11/04 Visit Start Time 13:00 Visit Stop Time 13:51 Total Visit Minutes 51 Visit Number 14 Number of LABOR RELATIONS MANAGER Visits 0 PT-OP-B Current Condition Start: 01/21/21 17:48 Freq: Status: Active Protocol: Document 01/22/21 13:43 [facility] (Rec: 01/22/21 14:36 [facility] [id number]) Current Condition History of Current Condition Onset Date chronic Current Complaints thoracic and lumbar pain History of Current Condition Pt reports Sept was pretty rough. He is coming off oxy at this time. He was fixing up a gutter and there was a yellow jacket nest and he got a lot of bites and fell off the ladder and hit his head. He is on prednisone to help w/ inflamation since mid Nov and was going off oxy for 10 day of prednisone but went back on oxy after. He had an appt 2 weeks ago to redo thoracic ablation (T10-12) and is awaiting for it to be scheduled then a few weeks later get lumbar block. Pt reports he cont HEP and DO rx. He saw Dr. Jimenez and improved R hip mobility and was roseanne to get a pop which felt good. He does 10 min ea of bike, stair and treadmill as many days a week he can. Can walk one mile now. Pt reports pain level is higher than he would like. He is coming off oxy now (5mg x5x day). He wants to get off the oxy and started 2 days ago to come off oxy. Reports he has been doing some mitchell chi via videos. Pt reports he can't do much around of the house. Motivation is limiting him too . Pt reports changing position and turning corners increases pain and pt notes dec balance . Prior Treatments and Tests DO, PT mult bouts in past, ablations & working w/painter and body mechanic apprentice Treatment Goals Patient/Caregiver Goals keep R hip going right way, be able to lift and move stuff in shop PT-OP-C Subjective Start: 01/21/21 17:48 Freq: Status: Active Protocol: Document 04/27/21 12:59 [facility] (Rec: 04/27/21 13:48 [facility] [id number]) OP-PT Subjective Patient Comments Patient Comments Pt reports tspine is overall doing better. PT-OP-D Balance Start: 01/21/21 17:48 Freq: Status: Active Protocol: Document 01/22/21 13:43 [facility] (Rec: 01/22/21 14:36 [facility] [id number]) Balance Tests Single Limb Standing Single Limb- Right 1 sec Single Limb- Left 3 sec PT-OP-F Manual Assessment Start: 01/21/21 17:48 Freq: Status: Active Protocol: Document 01/22/21 13:43 [facility] (Rec: 01/22/21 14:36 [facility] [id number]) Manual Assessments Soft Tissue Assessment Soft Tissue Mobility Assessment all lumbar and thoracic and R glute tender PT-OP-G Mobility & Gait Start: 01/21/21 17:48 Freq: Status: Active Protocol: Document 01/22/21 13:43 [facility] (Rec: 01/22/21 14:36 [facility] [id number]) OP Gait Assessment Comments Gait Comments Amb WNL except after standing ext then staggeres to side often and reaches for wall w/ lat leaning PT-OP-J Posture/Palpation/Skin Start: 01/21/21 17:48 Freq: Status: Active Protocol: Document 03/30/21 13:01 [facility] (Rec: 03/30/21 14:39 [facility] [id number]) Posture Evaluation Laurita Postural Classification System Laurita Postural Classifications Posterior/Anterior Lumbar Protective Mechanism Left AP 0 Lumbar Protective Mechanism Right AP 0 Lumbar Protective Mechanism Left PA 2 Lumbar Protective Mechanism Right PA 2 PT-OP-K Range of Motion Start: 01/21/21 17:48 Freq: Status: Active Protocol: Document 01/22/21 13:43 [facility] (Rec: 01/22/21 14:36 [facility] [id number]) Lumbar Spine Range of Motion Lumbar Spine Active Degrees Rotation Left 45 Rotation Right 30 PT-OP-L Special Tests Start: 01/21/21 17:48 Freq: Status: Active Protocol: Document 01/22/21 13:43 [facility] (Rec: 01/22/21 14:36 [facility] [id number]) Special Tests Lumbar Spine Special Tests Slump Test Results R positive SLR Test Results 88 R HS tightness Comments 60 L-pain in LB-positive PT-OP-M Strength Start: 01/21/21 17:48 Freq: Status: Active Protocol: Document 03/30/21 13:01 [facility] (Rec: 03/30/21 14:39 [facility] [id number]) Hip Strength Hip Manual Muscle Testing Right Flexion (L2) 4 Good Extension (S1) 4 Good Abduction 4 Good Adduction 4- Good- External Rotation 4 Good Internal Rotation 4 Good Left Flexion (L2) 4 Good Extension (S1) 4+ Good+ Abduction 4 Good Adduction 4 Good External Rotation 4+ Good+ Internal Rotation 5 Normal Knee Strength Knee Manual Muscle Testing Right Flexion (S2) 4+ Good+ Extension (L3) 5 Normal Left Flexion (S2) 4+ Good+ Extension (L3) 5 Normal Ankle/Foot Strength Ankle and Foot Manual Muscle Testing Right Dorsiflexion (L4) 5 Normal Plantarflexion (S1) 4- Good- Comments 10 heel raises Left Dorsiflexion (L4) 5 Normal Plantarflexion (S1) 4 Good Comments 10 heel raises PT-OP-Q Treatments Start: 01/21/21 17:48 Freq: Status: Active Protocol: Document 04/27/21 12:59 [facility] (Rec: 04/27/21 13:48 [facility] [id number]) Therapeutic Exercises Supine Exercises core Supine Exercise Name BKFO Side bilateral Reps/Minutes 15 ea Comments core focus pelvic tilt Supine Exercise Name w/heel slide to SLR Side bilateral Reps/Minutes 10 Comments cues for holding core through entire movement LTR Supine Exercise Name comfortable range Side bilateral Reps/Minutes 8 Comments mod cues for segmental controlwhen bringing legs up to L Other Exercises quadruped Other Exercise Name 1. alt arm flex 2. alt hip ext Side bilateral Reps/Minutes 10 ea Comments max cues for neutral spine and not rotating at lumbar Manual Therapy Treatment Soft Tissue Mobilization 5 Body Location R QL & ES& R sup lat iliac crest bordr Mobilization Type Myofascial Release,Rolling Intensity/Depth Moderate Body Position Prone Joint Mobilizations 5 Joint UPA R & R caudal glide sacrum PT-OP-R Modalities Start: 01/21/21 17:48 Freq: Status: Active Protocol: Document 04/27/21 12:59 [facility] (Rec: 04/27/21 13:48 [facility] [id number]) Electric Stimulation Electric Stimulation Interferential Current (IFC) Body Location lumbo sacral Duration (Minutes) 10 Intensity 18 Patient Position Prone Combined With Heat/Cold Cold Pack Comments cold pack to lumbar and thoracic PT-OP-S Aquatic Treatment Start: 04/10/21 14:29 Freq: Status: Active Protocol: Document 04/17/21 14:39 LJ (Rec: 04/17/21 15:10 [facility] [id number]) Aquatics Treatment Pool Entry/Exit Pool Entry/Exit Method Stairs Assistance Independent Water Walking shallow water jog Water Level Chest Level Comments cues for soft landing and foot position Lunge Walk Water Level Waist Level Level of Assistance Verbal Cues Marching Water Level Chest Level Level of Assistance Verbal Cues fw,bk,s to s Water Level Chest Level Level of Assistance Verbal Cues Comments faster pace than last session Lower Extremity Exercises 4 way hip Details HH on wall Body Position Standing Water Level Chest Level Reps/Duration 15 B each Comments reduced AB/AD with RLE to stay within painfree range Lower Extremity Stretches piriformis Details at wall Body Position Sitting Water Level Waist Level Reps/Duration 2 x 30 sec B SNTC, DKTC Details at wall Body Position Standing Reps/Duration 2 x 30 sec B and DKTC hip flexors Details at wall Body Position Standing Water Level Waist Level Reps/Duration 2 x 30 se B HS, Quads Details at stairs Body Position Standing Reps/Duration 2 x 30 sec ea Upper Extremity Exercises open book Body Position Standing Water Level Chest Level Reps/Duration 10 trunk rotations with 90/90 arms Body Position Standing Water Level Chest Level Reps/Duration 10 HABD/HADD Body Position Standing Water Level Chest Level Reps/Duration 10 lat pulldown Body Position Standing Water Level Chest Level Reps/Duration 10 Balance seated on noodle Water Level Chest Level Equipment lg noodle Reps/Duration 3 min Comments improved without feet on floor and no additional noodle for support [place] Activities [place] Activities Bicycle,Bicycle Backwards, Cross Country,Running Other Activities Abd pull down at wall T hang Equipment belt, M BBs Comments cues for maintaining vertical position occasional jerky movements PT-OP-T Assessment and Plan Start: 01/21/21 17:48 Freq: Status: Active Protocol: Document 04/27/21 12:59 [facility] (Rec: 04/27/21 13:48 [facility] [id number]) Physical Therapy Assessment Goals activities Short Term Goal (STG) Pt will be able to demo good lifting mechanics for PT in order to dec pain when doing lifting activities at home. 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 1/3-can lift up to 50# from floor to table if he focuses on posture 10/04 LTG Duration 05/28/21 APRYL Impairment 2350 Short Term Goal (STG) Pt will improve score to no higher than 18/50 to show improved functional ability. 03/30-30 STG Duration 04/30/21 Rn Employee Health Goal (LTG) Pt will improve score to no higher than 13/50 to show improved functional ability. LTG Duration 05/28/21 strength Short Term Goal (STG) Pt will perform HEP w/good mechanics w/o cues needed 1/3-improving but cues still required STG Duration 04/30/21 Fdc Goal (LTG) Pt will score at least 3/5 on EFT and LPM and score 5/5 LE strength in all planes to allow for greater ease of movement 1/3-some improvement LTG Duration 05/28/21 balance Short Term Goal (STG) Pt will be able to turn corners w/o feeling of LOB. 1/3-no change STG Duration 04/30/21 Fdc Goal (LTG) Pt will be able to do SLS at least 8 sec B to show improved balance.(current 1 sec R, 3 L ) 13- no change 1 sec R, L 2 sec LTG Duration 05/28/21 Assessment Summary Assessment pt did better with exercise performance w/core exercises by end of session after cues and reps. Quadruped still difficulty. Physical Therapy Plan Frequency and Duration Frequency of Treatment 1-2x/week Duration of Treatment 2 months Plan of Care Start Date 03/30/21 Plan of Care End Date 05/28/21 Next Visit Focus/Plan Next Note Type Treatment Note Next Visit Plan cont to work on HEP & manual for pain relief Advance balance and core stabilization activities. PN next land visit
--- NOTE | 2021-04-29 14:38 | PT.OTN ---
Current Diagnoses Spondylosis without myelopathy or radiculopathy, thoracic region (04/29/21) Spinal stenosis, lumbar region with neurogenic claudication (04/29/21) Muscle weakness (generalized) (04/29/21) Difficulty in walking, not elsewhere classified (04/29/21) Abnormal posture (04/29/21) Physical Therapy Treatment Note PT-OP-A Visit Information Start: 01/21/21 17:48 Freq: Status: Active Protocol: Document 04/29/21 14:24 LJ (Rec: 04/29/21 14:38 LJ [id number]) Out-Patient Physical Therapy Visit Information Visit Information Visit Type Aquatic Treatment Note Visit Start Time 10:15 Visit Stop Time 10:37 Total Visit Minutes 22 Visit Number 15 Number of SALES UTILITY REPRESENTATIVE Visits 1 PT-OP-B Current Condition Start: 01/21/21 17:48 Freq: Status: Active Protocol: Document 01/22/21 13:43 [facility] (Rec: 01/22/21 14:36 [facility] [id number]) Current Condition History of Current Condition Onset Date chronic Current Complaints thoracic and lumbar pain History of Current Condition Pt reports Sept was pretty rough. He is coming off oxy at this time. He was fixing up a gutter and there was a yellow jacket nest and he got a lot of bites and fell off the ladder and hit his head. He is on prednisone to help w/ inflamation since mid Nov and was going off oxy for 10 day of prednisone but went back on oxy after. He had an appt 2 weeks ago to redo thoracic ablation (T10-12) and is awaiting for it to be scheduled then a few weeks later get lumbar block. Pt reports he cont HEP and DO rx. He saw Dr. Jimenez and improved R hip mobility and was roseanne to get a pop which felt good. He does 10 min ea of bike, stair and treadmill as many days a week he can. Can walk one mile now. Pt reports pain level is higher than he would like. He is coming off oxy now (5mg x5x day). He wants to get off the oxy and started 2 days ago to come off oxy. Reports he has been doing some serbian chi via videos. Pt reports he can't do much around of the house. Motivation is limiting him too . Pt reports changing position and turning corners increases pain and pt notes dec balance . Prior Treatments and Tests DO, PT mult bouts in past, ablations & working w/apprentice painter hand Treatment Goals Patient/Caregiver Goals keep R hip going right way, be able to lift and move stuff in shop PT-OP-C Subjective Start: 01/21/21 17:48 Freq: Status: Active Protocol: Document 04/29/21 14:24 LJ (Rec: 04/29/21 14:38 LJ [id number]) OP-PT Subjective Patient Comments Patient Comments Pt showed up half hour early and did some walking in the pool on his own. He left early d/t an appointment he had to attend. PT-OP-D Balance Start: 01/21/21 17:48 Freq: Status: Active Protocol: Document 01/22/21 13:43 [facility] (Rec: 01/22/21 14:36 [facility] [id number]) Balance Tests Single Limb Standing Single Limb- Right 1 sec Single Limb- Left 3 sec PT-OP-F Manual Assessment Start: 01/21/21 17:48 Freq: Status: Active Protocol: Document 01/22/21 13:43 [facility] (Rec: 01/22/21 14:36 [facility] [id number]) Manual Assessments Soft Tissue Assessment Soft Tissue Mobility Assessment all lumbar and thoracic and R glute tender PT-OP-G Mobility & Gait Start: 01/21/21 17:48 Freq: Status: Active Protocol: Document 01/22/21 13:43 [facility] (Rec: 01/22/21 14:36 [facility] [id number]) OP Gait Assessment Comments Gait Comments Amb WNL except after standing ext then staggeres to side often and reaches for wall w/ lat leaning PT-OP-J Posture/Palpation/Skin Start: 01/21/21 17:48 Freq: Status: Active Protocol: Document 03/30/21 13:01 [facility] (Rec: 03/30/21 14:39 [facility] [id number]) Posture Evaluation Laurita Postural Classification System Laurita Postural Classifications Posterior/Anterior Lumbar Protective Mechanism Left AP 0 Lumbar Protective Mechanism Right AP 0 Lumbar Protective Mechanism Left PA 2 Lumbar Protective Mechanism Right PA 2 PT-OP-K Range of Motion Start: 01/21/21 17:48 Freq: Status: Active Protocol: Document 01/22/21 13:43 [facility] (Rec: 01/22/21 14:36 [facility] [id number]) Lumbar Spine Range of Motion Lumbar Spine Active Degrees Rotation Left 45 Rotation Right 30 PT-OP-L Special Tests Start: 01/21/21 17:48 Freq: Status: Active Protocol: Document 01/22/21 13:43 [facility] (Rec: 01/22/21 14:36 [facility] [id number]) Special Tests Lumbar Spine Special Tests Slump Test Results R positive SLR Test Results 88 R HS tightness Comments 60 L-pain in LB-positive PT-OP-M Strength Start: 01/21/21 17:48 Freq: Status: Active Protocol: Document 03/30/21 13:01 [facility] (Rec: 03/30/21 14:39 [facility] [id number]) Hip Strength Hip Manual Muscle Testing Right Flexion (L2) 4 Good Extension (S1) 4 Good Abduction 4 Good Adduction 4- Good- External Rotation 4 Good Internal Rotation 4 Good Left Flexion (L2) 4 Good Extension (S1) 4+ Good+ Abduction 4 Good Adduction 4 Good External Rotation 4+ Good+ Internal Rotation 5 Normal Knee Strength Knee Manual Muscle Testing Right Flexion (S2) 4+ Good+ Extension (L3) 5 Normal Left Flexion (S2) 4+ Good+ Extension (L3) 5 Normal Ankle/Foot Strength Ankle and Foot Manual Muscle Testing Right Dorsiflexion (L4) 5 Normal Plantarflexion (S1) 4- Good- Comments 10 heel raises Left Dorsiflexion (L4) 5 Normal Plantarflexion (S1) 4 Good Comments 10 heel raises PT-OP-Q Treatments Start: 01/21/21 17:48 Freq: Status: Active Protocol: Document 04/27/21 12:59 [facility] (Rec: 04/27/21 13:48 [facility] [id number]) Therapeutic Exercises Supine Exercises core Supine Exercise Name BKFO Side bilateral Reps/Minutes 15 ea Comments core focus pelvic tilt Supine Exercise Name w/heel slide to SLR Side bilateral Reps/Minutes 10 Comments cues for holding core through entire movement LTR Supine Exercise Name comfortable range Side bilateral Reps/Minutes 8 Comments mod cues for segmental controlwhen bringing legs up to L Other Exercises quadruped Other Exercise Name 1. alt arm flex 2. alt hip ext Side bilateral Reps/Minutes 10 ea Comments max cues for neutral spine and not rotating at lumbar Manual Therapy Treatment Soft Tissue Mobilization 5 Body Location R QL & ES& R sup lat iliac crest bordr Mobilization Type Myofascial Release,Rolling Intensity/Depth Moderate Body Position Prone Joint Mobilizations 5 Joint UPA R & R caudal glide sacrum PT-OP-R Modalities Start: 01/21/21 17:48 Freq: Status: Active Protocol: Document 04/27/21 12:59 [facility] (Rec: 04/27/21 13:48 [facility] [id number]) Electric Stimulation Electric Stimulation Interferential Current (IFC) Body Location lumbo sacral Duration (Minutes) 10 Intensity 18 Patient Position Prone Combined With Heat/Cold Cold Pack Comments cold pack to lumbar and thoracic PT-OP-S Aquatic Treatment Start: 04/10/21 14:29 Freq: Status: Active Protocol: Document 04/29/21 14:24 [facility] (Rec: 04/29/21 14:38 [id number]) Aquatics Treatment Pool Entry/Exit Pool Entry/Exit Method Stairs Assistance Independent Water Walking shallow water jog Water Level Chest Level Comments cues for soft landing and foot position Upper Extremity Exercises trunk rotations with 90/90 arms Body Position Standing Water Level Chest Level Reps/Duration 10 HABD/HADD Body Position Standing Water Level Chest Level Reps/Duration 10 lat pulldown Body Position Standing Water Level Chest Level Reps/Duration 10 Balance planks Details fwd and side Body Position Prone Water Level Waist Level Equipment lg noodle Reps/Duration 5 min Comments sm LE mvmts for destabilization seated on noodle Body Position Sitting Water Level Chest Level Equipment lg noodle Reps/Duration 3 min Comments pulling self around [place] Activities [place] Activities Cross Country,Running,Hip Abduction/Adduction Equipment belt, M BBs Duration 5 min PT-OP-T Assessment and Plan Start: 01/21/21 17:48 Freq: Status: Active Protocol: Document 04/29/21 14:24 [facility] (Rec: 04/29/21 14:38 [id number]) Physical Therapy Assessment Rehab Potential Rehabilitation Potential Fair Evaluation Complexity Number of Personal Factors/Comorbidities 3 or More Number of Body Systems Impaired 4 or More Clinical Presentation at Evaluation Evolving Impairments Impairments Activity Tolerance,Balance, Functional Activities, Functional Mobility,Gait,Pain, Posture,ROM,Soft Tissue Mobility,Strength Goals activities Short Term Goal (STG) Pt will be able to demo good lifting mechanics for PT in order to dec pain when doing lifting activities at home. 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 03/30-can lift up to 50# from floor to table if he focuses on posture 10/04 LTG Duration 05/28/21 APRYL Impairment 23 Short Term Goal (STG) Pt will improve score to no higher than 18/50 to show improved functional ability. 03/30- STG Duration 04/30/21 Fpc Goal (LTG) Pt will improve score to no higher than 13/50 to show improved functional ability. LTG Duration 05/28/21 strength Short Term Goal (STG) Pt will perform HEP w/good mechanics w/o cues needed 13-improving but cues still required STG Duration 04/30/21 Fpc Goal (LTG) Pt will score at least 3/5 on EFT and LPM and score 5/5 LE strength in all planes to allow for greater ease of movement 13-some improvement LTG Duration 05/28/21 balance Short Term Goal (STG) Pt will be able to turn corners w/o feeling of LOB. 03/30-no change STG Duration 04/30/21 Gasateria Attendant Goal (LTG) Pt will be able to do SLS at least 8 sec B to show improved balance.(current 1 sec R, 3 L ) 03/30- no change 1 sec R, L 2 sec LTG Duration 05/28/21 Assessment Summary Assessment Pt had difficulty with core stabilization during planks. Kept legs abducted for larger TASHIA and greater stability. Unable to stabilize with feet closer together. Difficulty with maintaining vertical position in deep water particularly during running exercise. Physical Therapy Plan Frequency and Duration Frequency of Treatment 1-2x/week Duration of Treatment 2 months Plan of Care Start Date 03/30/21 Plan of Care End Date 05/28/21 Next Visit Focus/Plan Next Note Type Treatment Note Next Visit Plan Continue with core stabilization, advancing strengthening, and cardio exercises as tolerated to improve balance, pain reduction, and overall fitness .
--- NOTE | 2021-05-06 15:41 | PT.OTN ---
Current Diagnoses Spondylosis without myelopathy or radiculopathy, thoracic region (05/06/21) Spinal stenosis, lumbar region with neurogenic claudication (05/06/21) Muscle weakness (generalized) (05/06/21) Difficulty in walking, not elsewhere classified (05/06/21) Abnormal posture (05/06/21) Physical Therapy Treatment Note PT-OP-A Visit Information Start: 01/21/21 17:48 Freq: Status: Active Protocol: Document 05/06/21 15:30 LJ (Rec: 05/06/21 15:41 LJ [id number]) Out-Patient Physical Therapy Visit Information Visit Information Visit Type Aquatic Treatment Note Visit Start Time 11:45 Visit Stop Time 12:30 Total Visit Minutes 45 Visit Number 16 Number of COMPILATION CLERK Visits 2 PT-OP-B Current Condition Start: 01/21/21 17:48 Freq: Status: Active Protocol: Document 01/22/21 13:43 [facility] (Rec: 01/22/21 14:36 [facility] [id number]) Current Condition History of Current Condition Onset Date chronic Current Complaints thoracic and lumbar pain History of Current Condition Pt reports Sept was pretty rough. He is coming off oxy at this time. He was fixing up a gutter and there was a yellow jacket nest and he got a lot of bites and fell off the ladder and hit his head. He is on prednisone to help w/ inflamation since mid Nov and was going off oxy for 10 day of prednisone but went back on oxy after. He had an appt 2 weeks ago to redo thoracic ablation (T10-12) and is awaiting for it to be scheduled then a few weeks later get lumbar block. Pt reports he cont HEP and DO rx. He saw Dr. Jimenez and improved R hip mobility and was roseanne to get a pop which felt good. He does 10 min ea of bike, stair and treadmill as many days a week he can. Can walk one mile now. Pt reports pain level is higher than he would like. He is coming off oxy now (5mg x5x day). He wants to get off the oxy and started 2 days ago to come off oxy. Reports he has been doing some japanese chi via videos. Pt reports he can't do much around of the house. Motivation is limiting him too . Pt reports changing position and turning corners increases pain and pt notes dec balance . Prior Treatments and Tests DO, PT mult bouts in past, ablations & working w/barrel painter Treatment Goals Patient/Caregiver Goals keep R hip going right way, be able to lift and move stuff in shop PT-OP-C Subjective Start: 01/21/21 17:48 Freq: Status: Active Protocol: Document 05/06/21 15:30 LJ (Rec: 05/06/21 15:41 LJ [id number]) OP-PT Subjective Patient Comments Patient Comments Pt again entered pool early and did exerciseson his own prior to scheduled appointment . Stated he threw his back out on Tuesday then went to gym and did his stretching routine and is now back to normal. PT-OP-D Balance Start: 01/21/21 17:48 Freq: Status: Active Protocol: Document 01/22/21 13:43 [facility] (Rec: 01/22/21 14:36 [facility] [id number]) Balance Tests Single Limb Standing Single Limb- Right 1 sec Single Limb- Left 3 sec PT-OP-F Manual Assessment Start: 01/21/21 17:48 Freq: Status: Active Protocol: Document 01/22/21 13:43 [facility] (Rec: 01/22/21 14:36 [facility] [id number]) Manual Assessments Soft Tissue Assessment Soft Tissue Mobility Assessment all lumbar and thoracic and R glute tender PT-OP-G Mobility & Gait Start: 01/21/21 17:48 Freq: Status: Active Protocol: Document 01/22/21 13:43 [facility] (Rec: 01/22/21 14:36 [facility] [id number]) OP Gait Assessment Comments Gait Comments Amb WNL except after standing ext then staggeres to side often and reaches for wall w/ lat leaning PT-OP-J Posture/Palpation/Skin Start: 01/21/21 17:48 Freq: Status: Active Protocol: Document 03/30/21 13:01 [facility] (Rec: 03/30/21 14:39 [facility] [id number]) Posture Evaluation Laurita Postural Classification System Laurita Postural Classifications Posterior/Anterior Lumbar Protective Mechanism Left AP 0 Lumbar Protective Mechanism Right AP 0 Lumbar Protective Mechanism Left PA 2 Lumbar Protective Mechanism Right PA 2 PT-OP-K Range of Motion Start: 01/21/21 17:48 Freq: Status: Active Protocol: Document 01/22/21 13:43 [facility] (Rec: 01/22/21 14:36 [facility] [id number]) Lumbar Spine Range of Motion Lumbar Spine Active Degrees Rotation Left 45 Rotation Right 30 PT-OP-L Special Tests Start: 01/21/21 17:48 Freq: Status: Active Protocol: Document 01/22/21 13:43 [facility] (Rec: 01/22/21 14:36 [facility] [id number]) Special Tests Lumbar Spine Special Tests Slump Test Results R positive SLR Test Results 88 R HS tightness Comments 60 L-pain in LB-positive PT-OP-M Strength Start: 01/21/21 17:48 Freq: Status: Active Protocol: Document 03/30/21 13:01 [facility] (Rec: 03/30/21 14:39 [facility] [id number]) Hip Strength Hip Manual Muscle Testing Right Flexion (L2) 4 Good Extension (S1) 4 Good Abduction 4 Good Adduction 4- Good- External Rotation 4 Good Internal Rotation 4 Good Left Flexion (L2) 4 Good Extension (S1) 4+ Good+ Abduction 4 Good Adduction 4 Good External Rotation 4+ Good+ Internal Rotation 5 Normal Knee Strength Knee Manual Muscle Testing Right Flexion (S2) 4+ Good+ Extension (L3) 5 Normal Left Flexion (S2) 4+ Good+ Extension (L3) 5 Normal Ankle/Foot Strength Ankle and Foot Manual Muscle Testing Right Dorsiflexion (L4) 5 Normal Plantarflexion (S1) 4- Good- Comments 10 heel raises Left Dorsiflexion (L4) 5 Normal Plantarflexion (S1) 4 Good Comments 10 heel raises PT-OP-Q Treatments Start: 01/21/21 17:48 Freq: Status: Active Protocol: Document 04/27/21 12:59 [facility] (Rec: 04/27/21 13:48 [facility] [id number]) Therapeutic Exercises Supine Exercises core Supine Exercise Name BKFO Side bilateral Reps/Minutes 15 ea Comments core focus pelvic tilt Supine Exercise Name w/heel slide to SLR Side bilateral Reps/Minutes 10 Comments cues for holding core through entire movement LTR Supine Exercise Name comfortable range Side bilateral Reps/Minutes 8 Comments mod cues for segmental controlwhen bringing legs up to L Other Exercises quadruped Other Exercise Name 1. alt arm flex 2. alt hip ext Side bilateral Reps/Minutes 10 ea Comments max cues for neutral spine and not rotating at lumbar Manual Therapy Treatment Soft Tissue Mobilization 5 Body Location R QL & ES& R sup lat iliac crest bordr Mobilization Type Myofascial Release,Rolling Intensity/Depth Moderate Body Position Prone Joint Mobilizations 5 Joint UPA R & R caudal glide sacrum PT-OP-R Modalities Start: 01/21/21 17:48 Freq: Status: Active Protocol: Document 04/27/21 12:59 [facility] (Rec: 04/27/21 13:48 [facility] [id number]) Electric Stimulation Electric Stimulation Interferential Current (IFC) Body Location lumbo sacral Duration (Minutes) 10 Intensity 18 Patient Position Prone Combined With Heat/Cold Cold Pack Comments cold pack to lumbar and thoracic PT-OP-S Aquatic Treatment Start: 04/10/21 14:29 Freq: Status: Active Protocol: Document 05/06/21 15:30 LJ (Rec: 05/06/21 15:41 LJ [id number]) Aquatics Treatment Pool Entry/Exit Pool Entry/Exit Method Stairs Assistance Independent Water Walking circumduction f/b Water Level Chest Level Walking Equipment Ankle Floats Level of Assistance Verbal Cues Comments several LOB episodes fwd Lunge Walk Water Level Waist Level Walking Equipment Ankle Floats Level of Assistance Verbal Cues Marching Water Level Chest Level Walking Equipment Ankle Floats Level of Assistance Verbal Cues backward w/BS arms Water Level Chest Level Walking Equipment Ankle Floats Level of Assistance Verbal Cues fw,bk,s to s Water Level Chest Level Walking Equipment Ankle Floats Level of Assistance Verbal Cues Comments faster pace than last session Lower Extremity Exercises 4 way hip Details HH on wall Body Position Standing Water Level Chest Level Equipment Ankle Floats Reps/Duration 15 B each Lower Extremity Stretches piriformis Details at wall Body Position Sitting Water Level Waist Level Reps/Duration 2 x 30 sec B SNTC, DKTC Details at wall Body Position Standing Reps/Duration 2 x 30 sec B and DKTC hip flexors Details at wall Body Position Standing Water Level Waist Level Reps/Duration 2 x 30 se B HS, Quads Details at stairs Body Position Standing Reps/Duration 2 x 30 sec ea Upper Extremity Exercises trunk rotations with 90/90 arms Body Position Standing Water Level Chest Level Reps/Duration 10 HABD/HADD Body Position Standing Water Level Chest Level Reps/Duration 10 lat pulldown Body Position Standing Water Level Chest Level Reps/Duration 10 Spinal Exercises buoy pulldown Details at wall Body Position Sitting Equipment M buoys Reps/Duration 15 each direction Comments flex, rotate s 2 s Balance seated on noodle Body Position Sitting Water Level Chest Level Equipment lg noodle Reps/Duration 3 min Comments pulling self around [place] Activities [place] Activities Cross Country,Running,Hip Abduction/Adduction Other Activities pendulum Equipment belt, M BBs Duration 12 min PT-OP-T Assessment and Plan Start: 01/21/21 17:48 Freq: Status: Active Protocol: Document 05/06/21 15:30 [facility] (Rec: 05/06/21 15:41 [facility] [id number]) Physical Therapy Assessment Rehab Potential Rehabilitation Potential Fair Evaluation Complexity Number of Personal Factors/Comorbidities 3 or More Number of Body Systems Impaired 4 or More Clinical Presentation at Evaluation Evolving Impairments Impairments Activity Tolerance,Balance, Functional Activities, Functional Mobility,Gait,Pain, Posture,ROM,Soft Tissue Mobility,Strength Goals activities Short Term Goal (STG) Pt will be able to demo good lifting mechanics for PT in order to dec pain when doing lifting activities at home. 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 1/3-can lift up to 50# from floor to table if he focuses on posture 10/04 LTG Duration 05/28/21 APRYL Impairment 23/50 Short Term Goal (STG) Pt will improve score to no higher than 18/50 to show improved functional ability. 03/30-30/50 STG Duration 04/30/21 Senior Living Goal (LTG) Pt will improve score to no higher than 13/50 to show improved functional ability. LTG Duration 05/28/21 strength Short Term Goal (STG) Pt will perform HEP w/good mechanics w/o cues needed 1/3-improving but cues still required STG Duration 04/30/21 Senior Living Goal (LTG) Pt will score at least 3/5 on EFT and LPM and score 5/5 LE strength in all planes to allow for greater ease of movement 1/3-some improvement LTG Duration 05/28/21 balance Short Term Goal (STG) Pt will be able to turn corners w/o feeling of LOB. 13-no change STG Duration 04/30/21 Electronic Publishing Specialist Goal (LTG) Pt will be able to do SLS at least 8 sec B to show improved balance.(current 1 sec R, 3 L ) 03/30- no change 1 sec R, L 2 sec LTG Duration 05/28/21 Assessment Summary Assessment Pt demonstrated better balance with walking activities even with ankle floats on. Still occasionally jerked his body and lost balance stepping backwards but easily recovered . Pt with decreased stability and ability to remain vertical with pendulum exercises in deep water. Overall, he will benefit from an aquatic HEP which will be provided to him at his next appointment. Physical Therapy Plan Frequency and Duration Frequency of Treatment 1-2x/week Duration of Treatment 2 months Plan of Care Start Date 03/30/21 Plan of Care End Date 05/28/21 Next Visit Focus/Plan Next Note Type Treatment Note Next Visit Plan Pt able to continue on his own with aquatic therapy.
--- NOTE | 2021-05-07 12:09 | PT.OTN ---
Current Diagnoses Spondylosis without myelopathy or radiculopathy, thoracic region (05/07/21) Spinal stenosis, lumbar region with neurogenic claudication (05/07/21) Muscle weakness (generalized) (05/07/21) Difficulty in walking, not elsewhere classified (05/07/21) Abnormal posture (05/07/21) Physical Therapy Treatment Note PT-OP-A Visit Information Start: 01/21/21 17:48 Freq: Status: Active Protocol: Document 05/07/21 10:40 [facility] (Rec: 05/07/21 12:09 [facility] [id number]) Out-Patient Physical Therapy Visit Information Visit Information Visit Type Progress Note Visit Note 04/06 Visit Start Time 10:34 Visit Stop Time 11:25 Total Visit Minutes 51 Visit Number 17 Number of EMBOSSER OPERATOR Visits 0 PT-OP-B Current Condition Start: 01/21/21 17:48 Freq: Status: Active Protocol: Document 01/22/21 13:43 [facility] (Rec: 01/22/21 14:36 [facility] [id number]) Current Condition History of Current Condition Onset Date chronic Current Complaints thoracic and lumbar pain History of Current Condition Pt reports Sept was pretty rough. He is coming off oxy at this time. He was fixing up a gutter and there was a yellow jacket nest and he got a lot of bites and fell off the ladder and hit his head. He is on prednisone to help w/ inflamation since mid Nov and was going off oxy for 10 day of prednisone but went back on oxy after. He had an appt 2 weeks ago to redo thoracic ablation (T10-12) and is awaiting for it to be scheduled then a few weeks later get lumbar block. Pt reports he cont HEP and DO rx. He saw Dr. Jimenez and improved R hip mobility and was roseanne to get a pop which felt good. He does 10 min ea of bike, stair and treadmill as many days a week he can. Can walk one mile now. Pt reports pain level is higher than he would like. He is coming off oxy now (5mg x5x day). He wants to get off the oxy and started 2 days ago to come off oxy. Reports he has been doing some [place] chi via videos. Pt reports he can't do much around of the house. Motivation is limiting him too . Pt reports changing position and turning corners increases pain and pt notes dec balance . Prior Treatments and Tests DO, PT mult bouts in past, ablations & working w/mobile paint specialist Treatment Goals Patient/Caregiver Goals keep R hip going right way, be able to lift and move stuff in shop PT-OP-C Subjective Start: 01/21/21 17:48 Freq: Status: Active Protocol: Document 05/07/21 10:40 [facility] (Rec: 05/07/21 12:09 [facility] [id number]) OP-PT Subjective Patient Comments Patient Comments Pt reports up and down week. Tuesday was really bad but got to the gym and did massage chair and ice also and got to the pool also tue. Did well last night. Has to take days a couple hours at a time. He does his exercises and feels like they help PT-OP-D Balance Start: 01/21/21 17:48 Freq: Status: Active Protocol: Document 05/07/21 10:40 [facility] (Rec: 05/07/21 12:09 [facility] [id number]) Balance Tests Single Limb Standing Single Limb- Right 2 Single Limb- Left 2 PT-OP-F Manual Assessment Start: 01/21/21 17:48 Freq: Status: Active Protocol: Document 01/22/21 13:43 [facility] (Rec: 01/22/21 14:36 [facility] [id number]) Manual Assessments Soft Tissue Assessment Soft Tissue Mobility Assessment all lumbar and thoracic and R glute tender PT-OP-G Mobility & Gait Start: 01/21/21 17:48 Freq: Status: Active Protocol: Document 01/22/21 13:43 [facility] (Rec: 01/22/21 14:36 [facility] [id number]) OP Gait Assessment Comments Gait Comments Amb WNL except after standing ext then staggeres to side often and reaches for wall w/ lat leaning PT-OP-J Posture/Palpation/Skin Start: 01/21/21 17:48 Freq: Status: Active Protocol: Document 05/07/21 10:40 [facility] (Rec: 05/07/21 12:09 [facility] [id number]) Posture Evaluation Laurita Postural Classification System Lumbar Protective Mechanism Left AP 1 Lumbar Protective Mechanism Right AP 0 Lumbar Protective Mechanism Left PA 2 Lumbar Protective Mechanism Right PA 2 PT-OP-K Range of Motion Start: 01/21/21 17:48 Freq: Status: Active Protocol: Document 01/22/21 13:43 [facility] (Rec: 01/22/21 14:36 [facility] [id number]) Lumbar Spine Range of Motion Lumbar Spine Active Degrees Rotation Left 45 Rotation Right 30 PT-OP-L Special Tests Start: 01/21/21 17:48 Freq: Status: Active Protocol: Document 01/22/21 13:43 [facility] (Rec: 01/22/21 14:36 [facility] [id number]) Special Tests Lumbar Spine Special Tests Slump Test Results R positive SLR Test Results 88 R HS tightness Comments 60 L-pain in LB-positive PT-OP-M Strength Start: 01/21/21 17:48 Freq: Status: Active Protocol: Document 05/07/21 10:40 [facility] (Rec: 05/07/21 12:09 [facility] [id number]) Hip Strength Hip Manual Muscle Testing Right Flexion (L2) 4 Good Extension (S1) 4 Good Abduction 4+ Good+ Adduction 4 Good External Rotation 4 Good Internal Rotation 4+ Good+ Left Flexion (L2) 4 Good Extension (S1) 4+ Good+ Abduction 4+ Good+ Adduction 4+ Good+ External Rotation 4+ Good+ Internal Rotation 5 Normal Knee Strength Knee Manual Muscle Testing Right Flexion (S2) 4+ Good+ Extension (L3) 5 Normal Left Flexion (S2) 5 Normal Extension (L3) 5 Normal Ankle/Foot Strength Ankle and Foot Manual Muscle Testing Right Dorsiflexion (L4) 5 Normal Plantarflexion (S1) 4- Good- Comments 10 heel raises Left Dorsiflexion (L4) 5 Normal Plantarflexion (S1) 4 Good Comments 10 heel raises PT-OP-Q Treatments Start: 01/21/21 17:48 Freq: Status: Active Protocol: Document 05/07/21 10:40 [facility] (Rec: 05/07/21 12:09 [facility] [id number]) Manual Therapy Treatment Soft Tissue Mobilization 5 Body Location R QL & ES& R sup lat iliac crest bordr Mobilization Type Myofascial Release,Rolling Intensity/Depth Moderate Body Position Prone Joint Mobilizations 5 Joint UPA R & R caudal glide sacrum 3 Joint R hip Direction on axis ER FM Self-Care/Home Management Treatment Education Caregiver Education edu for pain management and that PT requires evidence of progress and is not a maintenance care. Edu to discuss w/primary MD and his current DO re: pain management specialists recommendations. Edu that he is to cont HEP and use of aquatic for working out after DC. Discussed importance of understanding of pain and educated to look up Oralia Heaton for more mangement PT-OP-R Modalities Start: 01/21/21 17:48 Freq: Status: Active Protocol: Document 05/07/21 10:40 [facility] (Rec: 05/07/21 12:09 [facility] [id number]) Hot Pack/Cold Pack Treatment Cold Pack Location lumbar & thoraic Patient Position Prone Treatment Duration (minutes) 10 PT-OP-S Aquatic Treatment Start: 04/10/21 14:29 Freq: Status: Active Protocol: Document 05/06/21 15:30 LJ (Rec: 05/06/21 15:41 LJ [id number]) Aquatics Treatment Pool Entry/Exit Pool Entry/Exit Method Stairs Assistance Independent Water Walking circumduction f/b Water Level Chest Level Walking Equipment Ankle Floats Level of Assistance Verbal Cues Comments several LOB episodes fwd Lunge Walk Water Level Waist Level Walking Equipment Ankle Floats Level of Assistance Verbal Cues Marching Water Level Chest Level Walking Equipment Ankle Floats Level of Assistance Verbal Cues backward w/BS arms Water Level Chest Level Walking Equipment Ankle Floats Level of Assistance Verbal Cues fw,bk,s to s Water Level Chest Level Walking Equipment Ankle Floats Level of Assistance Verbal Cues Comments faster pace than last session Lower Extremity Exercises 4 way hip Details HH on wall Body Position Standing Water Level Chest Level Equipment Ankle Floats Reps/Duration 15 B each Lower Extremity Stretches piriformis Details at wall Body Position Sitting Water Level Waist Level Reps/Duration 2 x 30 sec B SNTC, DKTC Details at wall Body Position Standing Reps/Duration 2 x 30 sec B and DKTC hip flexors Details at wall Body Position Standing Water Level Waist Level Reps/Duration 2 x 30 se B HS, Quads Details at stairs Body Position Standing Reps/Duration 2 x 30 sec ea Upper Extremity Exercises trunk rotations with 90/90 arms Body Position Standing Water Level Chest Level Reps/Duration 10 HABD/HADD Body Position Standing Water Level Chest Level Reps/Duration 10 lat pulldown Body Position Standing Water Level Chest Level Reps/Duration 10 Spinal Exercises buoy pulldown Details at wall Body Position Sitting Equipment M buoys Reps/Duration 15 each direction Comments flex, rotate s 2 s Balance seated on noodle Body Position Sitting Water Level Chest Level Equipment lg noodle Reps/Duration 3 min Comments pulling self around Pike Activities Pike Activities Cross Country,Running,Hip Abduction/Adduction Other Activities pendulum Equipment belt, M BBs Duration 12 min PT-OP-T Assessment and Plan Start: 01/21/21 17:48 Freq: Status: Active Protocol: Document 05/07/21 10:40 [facility] (Rec: 05/07/21 12:09 [facility] [id number]) Physical Therapy Assessment Goals activities Short Term Goal (STG) Pt will be able to demo good lifting mechanics for PT in order to dec pain when doing lifting activities at home. 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 /3-can lift up to 50# from floor to table if he focuses on posture 10/04 05/07-has not been moving things recenlty LTG Duration 05/28/21 APRYL Impairment 23/50 Short Term Goal (STG) Pt will improve score to no higher than 18/50 to show improved functional ability. 03/30-30/50 STG Duration 04/30/21 Skilled Nursing Goal (LTG) Pt will improve score to no higher than 13/50 to show improved functional ability. LTG Duration 05/28/21 strength Short Term Goal (STG) Pt will perform HEP w/good mechanics w/o cues needed 1/3-improving but cues still required STG Duration 04/30/21 Skilled Nursing Goal (LTG) Pt will score at least 3/5 on EFT and LPM and score 5/5 LE strength in all planes to allow for greater ease of movement 1/3-some improvement 05/07-minor improvement LTG Duration 05/28/21 balance Short Term Goal (STG) Pt will be able to turn corners w/o feeling of LOB. 1/3-no change 05/07-no change STG Duration 04/30/21 Political Research Scientist Goal (LTG) Pt will be able to do SLS at least 8 sec B to show improved balance.(current 1 sec R, 3 L ) 1/3- no change 1 sec R, L 2 sec 05/07-2 sec B LTG Duration 05/28/21 Assessment Summary Assessment Pt has made a small amount of progress at this time with strength. He is better w/using legs when lifting but does still get some thoracolumbar flex. At this time, plan is to cont PT to work towards better exercise form for HEP prior to DC Physical Therapy Plan Frequency and Duration Frequency of Treatment 1-2x/week Duration of Treatment 2 months Plan of Care Start Date 03/30/21 Plan of Care End Date 05/28/21 Next Visit Focus/Plan Next Note Type Treatment Note Next Visit Plan cont thru end of month w/pt to independence w/HEP to DC
--- NOTE | 2021-05-18 14:33 | PT.OTN ---
Current Diagnoses Spondylosis without myelopathy or radiculopathy, thoracic region (05/18/21) Spinal stenosis, lumbar region with neurogenic claudication (05/18/21) Muscle weakness (generalized) (05/18/21) Difficulty in walking, not elsewhere classified (05/18/21) Abnormal posture (05/18/21) Physical Therapy Treatment Note PT-OP-A Visit Information Start: 01/21/21 17:48 Freq: Status: Active Protocol: Document 05/18/21 13:52 [facility] (Rec: 05/18/21 14:33 [facility] [id number]) Out-Patient Physical Therapy Visit Information Visit Information Visit Type Treatment Note Visit Note 05/07 Visit Start Time 13:50 Visit Stop Time 14:40 Total Visit Minutes 50 Visit Number 18 Number of MAKE UP GIRL Visits 0 PT-OP-B Current Condition Start: 01/21/21 17:48 Freq: Status: Active Protocol: Document 01/22/21 13:43 [facility] (Rec: 01/22/21 14:36 [facility] [id number]) Current Condition History of Current Condition Onset Date chronic Current Complaints thoracic and lumbar pain History of Current Condition Pt reports Sept was pretty rough. He is coming off oxy at this time. He was fixing up a gutter and there was a yellow jacket nest and he got a lot of bites and fell off the ladder and hit his head. He is on prednisone to help w/ inflamation since mid Nov and was going off oxy for 10 day of prednisone but went back on oxy after. He had an appt 2 weeks ago to redo thoracic ablation (T10-12) and is awaiting for it to be scheduled then a few weeks later get lumbar block. Pt reports he cont HEP and DO rx. He saw Dr. Jimenez and improved R hip mobility and was roseanne to get a pop which felt good. He does 10 min ea of bike, stair and treadmill as many days a week he can. Can walk one mile now. Pt reports pain level is higher than he would like. He is coming off oxy now (5mg x5x day). He wants to get off the oxy and started 2 days ago to come off oxy. Reports he has been doing some mitchell chi via videos. Pt reports he can't do much around of the house. Motivation is limiting him too . Pt reports changing position and turning corners increases pain and pt notes dec balance . 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 He has felt good relief w/acupuncture and OMT. PT-OP-D Balance Start: 01/21/21 17:48 Freq: Status: Active Protocol: Document 05/07/21 10:40 [facility] (Rec: 05/07/21 12:09 [facility] [id number]) Balance Tests Single Limb Standing Single Limb- Right 2 Single Limb- Left 2 PT-OP-F Manual Assessment Start: 01/21/21 17:48 Freq: Status: Active Protocol: Document 01/22/21 13:43 [facility] (Rec: 01/22/21 14:36 [facility] [id number]) Manual Assessments Soft Tissue Assessment Soft Tissue Mobility Assessment all lumbar and thoracic and R glute tender PT-OP-G Mobility & Gait Start: 01/21/21 17:48 Freq: Status: Active Protocol: Document 01/22/21 13:43 [facility] (Rec: 01/22/21 14:36 [facility] [id number]) OP Gait Assessment Comments Gait Comments Amb WNL except after standing ext then staggeres to side often and reaches for wall w/ lat leaning PT-OP-J Posture/Palpation/Skin Start: 01/21/21 17:48 Freq: Status: Active Protocol: Document 05/07/21 10:40 [facility] (Rec: 05/07/21 12:09 [facility] [id number]) Posture Evaluation Laurita Postural Classification System Lumbar Protective Mechanism Left AP 1 Lumbar Protective Mechanism Right AP 0 Lumbar Protective Mechanism Left PA 2 Lumbar Protective Mechanism Right PA 2 PT-OP-K Range of Motion Start: 01/21/21 17:48 Freq: Status: Active Protocol: Document 01/22/21 13:43 [facility] (Rec: 01/22/21 14:36 [facility] [id number]) Lumbar Spine Range of Motion Lumbar Spine Active Degrees Rotation Left 45 Rotation Right 30 PT-OP-L Special Tests Start: 01/21/21 17:48 Freq: Status: Active Protocol: Document 01/22/21 13:43 [facility] (Rec: 01/22/21 14:36 [facility] [id number]) Special Tests Lumbar Spine Special Tests Slump Test Results R positive SLR Test Results 88 R HS tightness Comments 60 L-pain in LB-positive PT-OP-M Strength Start: 01/21/21 17:48 Freq: Status: Active Protocol: Document 05/07/21 10:40 [facility] (Rec: 05/07/21 12:09 [facility] [id number]) Hip Strength Hip Manual Muscle Testing Right Flexion (L2) 4 Good Extension (S1) 4 Good Abduction 4+ Good+ Adduction 4 Good External Rotation 4 Good Internal Rotation 4+ Good+ Left Flexion (L2) 4 Good Extension (S1) 4+ Good+ Abduction 4+ Good+ Adduction 4+ Good+ External Rotation 4+ Good+ Internal Rotation 5 Normal Knee Strength Knee Manual Muscle Testing Right Flexion (S2) 4+ Good+ Extension (L3) 5 Normal Left Flexion (S2) 5 Normal Extension (L3) 5 Normal Ankle/Foot Strength Ankle and Foot Manual Muscle Testing Right Dorsiflexion (L4) 5 Normal Plantarflexion (S1) 4- Good- Comments 10 heel raises Left Dorsiflexion (L4) 5 Normal Plantarflexion (S1) 4 Good Comments 10 heel raises PT-OP-Q Treatments Start: 01/21/21 17:48 Freq: Status: Active Protocol: Document 05/18/21 13:52 [facility] (Rec: 05/18/21 14:33 [facility] [id number]) Therapeutic Exercises Supine Exercises core Supine Exercise Name core engagement w/BKFO Side bilateral Reps/Minutes 10 pelvic tilt Supine Exercise Name w/heel slide to SLR Side bilateral Reps/Minutes 8 LTR Supine Exercise Name comfortable range Side bilateral Reps/Minutes 5 Standing Exercises lunge Standing Exercise Name at bars Side bilateral Reps/Minutes 12 Comments cues for no torso rotation squat Side bilateral Reps/Minutes 2x10 Comments max cues for glute activation Manual Therapy Treatment Soft Tissue Mobilization 5 Body Location R QL & ES& R sup lat iliac crest bordr Mobilization Type Myofascial Release,Rolling Intensity/Depth Moderate Body Position Sidelying Joint Mobilizations 5 Joint L2 transverse L FM PT-OP-R Modalities Start: 01/21/21 17:48 Freq: Status: Active Protocol: Document 05/18/21 13:52 [facility] (Rec: 05/18/21 14:33 [facility] [id number]) Hot Pack/Cold Pack Treatment Cold Pack Location lumbar & thoracic Patient Position Prone Treatment Duration (minutes) 10 PT-OP-S Aquatic Treatment Start: 04/10/21 14:29 Freq: Status: Active Protocol: Document 05/06/21 15:30 [facility] (Rec: 05/06/21 15:41 [facility] [id number]) Aquatics Treatment Pool Entry/Exit Pool Entry/Exit Method Stairs Assistance Independent Water Walking circumduction f/b Water Level Chest Level Walking Equipment Ankle Floats Level of Assistance Verbal Cues Comments several LOB episodes fwd Lunge Walk Water Level Waist Level Walking Equipment Ankle Floats Level of Assistance Verbal Cues Marching Water Level Chest Level Walking Equipment Ankle Floats Level of Assistance Verbal Cues backward w/BS arms Water Level Chest Level Walking Equipment Ankle Floats Level of Assistance Verbal Cues fw,bk,s to s Water Level Chest Level Walking Equipment Ankle Floats Level of Assistance Verbal Cues Comments faster pace than last session Lower Extremity Exercises 4 way hip Details HH on wall Body Position Standing Water Level Chest Level Equipment Ankle Floats Reps/Duration 15 B each Lower Extremity Stretches piriformis Details at wall Body Position Sitting Water Level Waist Level Reps/Duration 2 x 30 sec B SNTC, DKTC Details at wall Body Position Standing Reps/Duration 2 x 30 sec B and DKTC hip flexors Details at wall Body Position Standing Water Level Waist Level Reps/Duration 2 x 30 se B HS, Quads Details at stairs Body Position Standing Reps/Duration 2 x 30 sec ea Upper Extremity Exercises trunk rotations with 90/90 arms Body Position Standing Water Level Chest Level Reps/Duration 10 HABD/HADD Body Position Standing Water Level Chest Level Reps/Duration 10 lat pulldown Body Position Standing Water Level Chest Level Reps/Duration 10 Spinal Exercises buoy pulldown Details at wall Body Position Sitting Equipment M buoys Reps/Duration 15 each direction Comments flex, rotate s 2 s Balance seated on noodle Body Position Sitting Water Level Chest Level Equipment lg noodle Reps/Duration 3 min Comments pulling self around [place] Activities [place] Activities Cross Country,Running,Hip Abduction/Adduction Other Activities pendulum Equipment belt, M BBs Duration 12 min PT-OP-T Assessment and Plan Start: 01/21/21 17:48 Freq: Status: Active Protocol: Document 05/18/21 13:52 [facility] (Rec: 05/18/21 14:33 [facility] [id number]) Physical Therapy Assessment Goals activities Short Term Goal (STG) Pt will be able to demo good lifting mechanics for PT in order to dec pain when doing lifting activities at home. 05/07- hasn't been lifting recently, much improved mechanics but still 1/3-still bends at tspine to steel pickler something from gorund STG Duration 04/30/21 Charter Boat Captain Goal (LTG) Pt will be able to lift and move objects in house w/o inc of pain more than 08/04. /-can lift up to 50# from floor to table if he focuses on posture 10/04 05/07-has not been moving things recenlty LTG Duration 05/28/21 APRYL Impairment 23/50 Short Term Goal (STG) Pt will improve score to no higher than 18/50 to show improved functional ability. 03/30- STG Duration 04/30/21 Snf Goal (LTG) Pt will improve score to no higher than 13/50 to show improved functional ability. LTG Duration 05/28/21 strength Short Term Goal (STG) Pt will perform HEP w/good mechanics w/o cues needed 1/3-improving but cues still required STG Duration 04/30/21 Snf Goal (LTG) Pt will score at least 3/5 on EFT and LPM and score 5/5 LE strength in all planes to allow for greater ease of movement 1/3-some improvement 05/07-minor improvement LTG Duration 05/28/21 balance Short Term Goal (STG) Pt will be able to turn corners w/o feeling of LOB. 03/30-no change 05/07-no change STG Duration 04/30/21 Snf Goal (LTG) Pt will be able to do SLS at least 8 sec B to show improved balance.(current 1 sec R, 3 L ) 03/30- no change 1 sec R, L 2 sec 05/07-2 sec B LTG Duration 05/28/21 Assessment Summary Assessment Pt required max cues and reset w/squats and lunges to make sure he got full hip ext and did not extend back. During squats cues to keep head in neutral and not ext or flexed and taht caused back motion. Improved post dep w/manual Physical Therapy Plan Frequency and Duration Frequency of Treatment 1-2x/week Duration of Treatment 2 months Plan of Care Start Date 03/30/21 Plan of Care End Date 05/28/21 Next Visit Focus/Plan Next Note Type Treatment Note Next Visit Plan cont thru end of month w/pt to independence w/HEP to DC 06/02
--- NOTE | 2021-05-25 09:03 | PT.OTN ---
Current Diagnoses Spondylosis without myelopathy or radiculopathy, thoracic region (05/25/21) Spinal stenosis, lumbar region with neurogenic claudication (05/25/21) Muscle weakness (generalized) (05/25/21) Difficulty in walking, not elsewhere classified (05/25/21) Abnormal posture (05/25/21) Physical Therapy Treatment Note PT-OP-A Visit Information Start: 01/21/21 17:48 Freq: Status: Active Protocol: Document 05/25/21 08:16 [facility] (Rec: 05/25/21 09:03 [facility] [id number]) Out-Patient Physical Therapy Visit Information Visit Information Visit Type Treatment Note Visit Note 06/04 Visit Start Time 08:17 Visit Stop Time 09:12 Total Visit Minutes 55 Visit Number 19 Number of SCHOOL MANAGER Visits 0 PT-OP-B Current Condition Start: 01/21/21 17:48 Freq: Status: Active Protocol: Document 01/22/21 13:43 [facility] (Rec: 01/22/21 14:36 [facility] [id number]) Current Condition History of Current Condition Onset Date chronic Current Complaints thoracic and lumbar pain History of Current Condition Pt reports Sept was pretty rough. He is coming off oxy at this time. He was fixing up a gutter and there was a yellow jacket nest and he got a lot of bites and fell off the ladder and hit his head. He is on prednisone to help w/ inflamation since mid Nov and was going off oxy for 10 day of prednisone but went back on oxy after. He had an appt 2 weeks ago to redo thoracic ablation (T10-12) and is awaiting for it to be scheduled then a few weeks later get lumbar block. Pt reports he cont HEP and DO rx. He saw Dr. Jimenez and improved R hip mobility and was roseanne to get a pop which felt good. He does 10 min ea of bike, stair and treadmill as many days a week he can. Can walk one mile now. Pt reports pain level is higher than he would like. He is coming off oxy now (5mg x5x day). He wants to get off the oxy and started 2 days ago to come off oxy. Reports he has been doing some mitchell chi via videos. Pt reports he can't do much around of the house. Motivation is limiting him too . Pt reports changing position and turning corners increases pain and pt notes dec balance . Prior Treatments and Tests DO, PT mult bouts in past, ablations & working w/rn pain management Treatment Goals Patient/Caregiver Goals keep R hip going right way, be able to lift and move stuff in shop PT-OP-C Subjective Start: 01/21/21 17:48 Freq: Status: Active Protocol: Document 05/25/21 08:16 [facility] (Rec: 05/25/21 09:03 [facility] [id number]) OP-PT Subjective Patient Comments Patient Comments pt reports he did 55 min in pool and was just sore after. PT-OP-D Balance Start: 01/21/21 17:48 Freq: Status: Active Protocol: Document 05/07/21 10:40 [facility] (Rec: 05/07/21 12:09 [facility] [id number]) Balance Tests Single Limb Standing Single Limb- Right 2 Single Limb- Left 2 PT-OP-F Manual Assessment Start: 01/21/21 17:48 Freq: Status: Active Protocol: Document 01/22/21 13:43 [facility] (Rec: 01/22/21 14:36 [facility] [id number]) Manual Assessments Soft Tissue Assessment Soft Tissue Mobility Assessment all lumbar and thoracic and R glute tender PT-OP-G Mobility & Gait Start: 01/21/21 17:48 Freq: Status: Active Protocol: Document 01/22/21 13:43 [facility] (Rec: 01/22/21 14:36 [facility] [id number]) OP Gait Assessment Comments Gait Comments Amb WNL except after standing ext then staggeres to side often and reaches for wall w/ lat leaning PT-OP-J Posture/Palpation/Skin Start: 01/21/21 17:48 Freq: Status: Active Protocol: Document 05/07/21 10:40 [facility] (Rec: 05/07/21 12:09 [facility] [id number]) Posture Evaluation Laurita Postural Classification System Lumbar Protective Mechanism Left AP 1 Lumbar Protective Mechanism Right AP 0 Lumbar Protective Mechanism Left PA 2 Lumbar Protective Mechanism Right PA 2 PT-OP-K Range of Motion Start: 01/21/21 17:48 Freq: Status: Active Protocol: Document 01/22/21 13:43 [facility] (Rec: 01/22/21 14:36 [facility] [id number]) Lumbar Spine Range of Motion Lumbar Spine Active Degrees Rotation Left 45 Rotation Right 30 PT-OP-L Special Tests Start: 01/21/21 17:48 Freq: Status: Active Protocol: Document 01/22/21 13:43 [facility] (Rec: 01/22/21 14:36 [facility] [id number]) Special Tests Lumbar Spine Special Tests Slump Test Results R positive SLR Test Results 88 R HS tightness Comments 60 L-pain in LB-positive PT-OP-M Strength Start: 01/21/21 17:48 Freq: Status: Active Protocol: Document 05/07/21 10:40 [facility] (Rec: 05/07/21 12:09 [facility] [id number]) Hip Strength Hip Manual Muscle Testing Right Flexion (L2) 4 Good Extension (S1) 4 Good Abduction 4+ Good+ Adduction 4 Good External Rotation 4 Good Internal Rotation 4+ Good+ Left Flexion (L2) 4 Good Extension (S1) 4+ Good+ Abduction 4+ Good+ Adduction 4+ Good+ External Rotation 4+ Good+ Internal Rotation 5 Normal Knee Strength Knee Manual Muscle Testing Right Flexion (S2) 4+ Good+ Extension (L3) 5 Normal Left Flexion (S2) 5 Normal Extension (L3) 5 Normal Ankle/Foot Strength Ankle and Foot Manual Muscle Testing Right Dorsiflexion (L4) 5 Normal Plantarflexion (S1) 4- Good- Comments 10 heel raises Left Dorsiflexion (L4) 5 Normal Plantarflexion (S1) 4 Good Comments 10 heel raises PT-OP-Q Treatments Start: 01/21/21 17:48 Freq: Status: Active Protocol: Document 05/25/21 08:16 [facility] (Rec: 05/25/21 09:03 [facility] [id number]) Therapeutic Exercises Supine Exercises core Supine Exercise Name core engagement w/BKFO Side bilateral Reps/Minutes 10 pelvic tilt Supine Exercise Name w/heel slide to SLR Side bilateral Reps/Minutes 4 Standing Exercises lunge Standing Exercise Name 1.at bars 2. along wall walking Side bilateral Reps/Minutes 1.10 2. 4x20ft Comments cues for no torso rotation squat Side bilateral Reps/Minutes 10 Comments max cues for glute activation Other Exercises nemesio pose Other Exercise Name fwd & to sides Side bilateral Reps/Minutes 10 sec eax2 quadruped Other Exercise Name 1. alt arm flex 2. alt hip ext Side bilateral Reps/Minutes 10 ea Comments max cues for neutral spine and not rotating at lumbar Manual Therapy Treatment Soft Tissue Mobilization 5 Body Location R QL & ES Mobilization Type Myofascial Release,Rolling Intensity/Depth Moderate Body Position Sidelying Comments avoiding R bruise over R iliac crest Joint Mobilizations 5 Joint L2 -4 transverse L FM Comments w/ant elvation 4 Joint innominate post rotation R PT-OP-R Modalities Start: 01/21/21 17:48 Freq: Status: Active Protocol: Document 05/25/21 08:16 [facility] (Rec: 05/25/21 09:03 [facility] [id number]) Electric Stimulation Electric Stimulation Interferential Current (IFC) Body Location lumbo sacral Duration (Minutes) 15 Intensity 18 Patient Position Prone Combined With Heat/Cold Cold Pack Comments cold pack to lumbar and thoracic PT-OP-S Aquatic Treatment Start: 04/10/21 14:29 Freq: Status: Active Protocol: Document 05/06/21 15:30 [facility] (Rec: 05/06/21 15:41 [facility] [id number]) Aquatics Treatment Pool Entry/Exit Pool Entry/Exit Method Stairs Assistance Independent Water Walking circumduction f/b Water Level Chest Level Walking Equipment Ankle Floats Level of Assistance Verbal Cues Comments several LOB episodes fwd Lunge Walk Water Level Waist Level Walking Equipment Ankle Floats Level of Assistance Verbal Cues Marching Water Level Chest Level Walking Equipment Ankle Floats Level of Assistance Verbal Cues backward w/BS arms Water Level Chest Level Walking Equipment Ankle Floats Level of Assistance Verbal Cues fw,bk,s to s Water Level Chest Level Walking Equipment Ankle Floats Level of Assistance Verbal Cues Comments faster pace than last session Lower Extremity Exercises 4 way hip Details HH on wall Body Position Standing Water Level Chest Level Equipment Ankle Floats Reps/Duration 15 B each Lower Extremity Stretches piriformis Details at wall Body Position Sitting Water Level Waist Level Reps/Duration 2 x 30 sec B SNTC, DKTC Details at wall Body Position Standing Reps/Duration 2 x 30 sec B and DKTC hip flexors Details at wall Body Position Standing Water Level Waist Level Reps/Duration 2 x 30 se B HS, Quads Details at stairs Body Position Standing Reps/Duration 2 x 30 sec ea Upper Extremity Exercises trunk rotations with 90/90 arms Body Position Standing Water Level Chest Level Reps/Duration 10 HABD/HADD Body Position Standing Water Level Chest Level Reps/Duration 10 lat pulldown Body Position Standing Water Level Chest Level Reps/Duration 10 Spinal Exercises buoy pulldown Details at wall Body Position Sitting Equipment M buoys Reps/Duration 15 each direction Comments flex, rotate s 2 s Balance seated on noodle Body Position Sitting Water Level Chest Level Equipment lg noodle Reps/Duration 3 min Comments pulling self around [place] Activities [place] Activities Cross Country,Running,Hip Abduction/Adduction Other Activities pendulum Equipment belt, M BBs Duration 12 min PT-OP-T Assessment and Plan Start: 01/21/21 17:48 Freq: Status: Active Protocol: Document 05/25/21 08:16 [facility] (Rec: 05/25/21 09:03 [facility] [id number]) Physical Therapy Assessment Goals activities Short Term Goal (STG) Pt will be able to demo good lifting mechanics for PT in order to dec pain when doing lifting activities at home. 05/07- hasn't been lifting recently, much improved mechanics but still /3-still bends at tspine to poultry picker something from gorund STG Duration 04/30/21 Coffee Host Goal (LTG) Pt will be able to lift and move objects in house w/o inc of pain more than 08/04. 03/30-can lift up to 50# from floor to table if he focuses on posture 10/04 05/07-has not been moving things recenlty LTG Duration 05/28/21 APRYL Impairment 23/50 Short Term Goal (STG) Pt will improve score to no higher than 18/50 to show improved functional ability. 03/30-30/50 STG Duration 04/30/21 Intermediate Goal (LTG) Pt will improve score to no higher than 13/50 to show improved functional ability. LTG Duration 05/28/21 strength Short Term Goal (STG) Pt will perform HEP w/good mechanics w/o cues needed 13-improving but cues still required STG Duration 04/30/21 Intermediate Goal (LTG) Pt will score at least 3/5 on EFT and LPM and score 5/5 LE strength in all planes to allow for greater ease of movement 1/3-some improvement 05/07-minor improvement LTG Duration 05/28/21 balance Short Term Goal (STG) Pt will be able to turn corners w/o feeling of LOB. 13-no change 05/07-no change STG Duration 04/30/21 Intermediate Goal (LTG) Pt will be able to do SLS at least 8 sec B to show improved balance.(current 1 sec R, 3 L ) 03/30- no change 1 sec R, L 2 sec 05/07-2 sec B LTG Duration 05/28/21 Assessment Summary Assessment Pt did better with exercises but still required cues for hip ext to impove glute activation w/standing exercises. He required cues to slow down w/BKFO to focus on core. improved ant elevation w /manual treatment. Physical Therapy Plan Frequency and Duration Frequency of Treatment 1-2x/week Duration of Treatment 2 months Plan of Care Start Date 03/30/21 Plan of Care End Date 05/28/21 Next Visit Focus/Plan Next Note Type Discharge Summary Next Visit Plan POC and DC summary next visit to DC to HEP
--- NOTE | 2021-06-02 15:17 | PT.OTN ---
Current Diagnoses Spondylosis without myelopathy or radiculopathy, thoracic region (06/02/21) Spinal stenosis, lumbar region with neurogenic claudication (06/02/21) Muscle weakness (generalized) (06/02/21) Difficulty in walking, not elsewhere classified (06/02/21) Abnormal posture (06/02/21) Physical Therapy Treatment Note PT-OP-A Visit Information Start: 01/21/21 17:48 Freq: Status: Active Protocol: Document 06/02/21 13:00 [facility] (Rec: 06/02/21 15:17 [facility] [id number]) Out-Patient Physical Therapy Visit Information Visit Information Visit Type Discharge Summary Visit Start Time 13:00 Visit Stop Time 13:54 Total Visit Minutes 54 Visit Number 20 Number of INSPECTOR Visits 0 PT-OP-B Current Condition Start: 01/21/21 17:48 Freq: Status: Active Protocol: Document 01/22/21 13:43 [facility] (Rec: 01/22/21 14:36 [facility] [id number]) Current Condition History of Current Condition Onset Date chronic Current Complaints thoracic and lumbar pain History of Current Condition Pt reports Sept was pretty rough. He is coming off oxy at this time. He was fixing up a gutter and there was a yellow jacket nest and he got a lot of bites and fell off the ladder and hit his head. He is on prednisone to help w/ inflamation since mid Nov and was going off oxy for 10 day of prednisone but went back on oxy after. He had an appt 2 weeks ago to redo thoracic ablation (T10-12) and is awaiting for it to be scheduled then a few weeks later get lumbar block. Pt reports he cont HEP and DO rx. He saw Dr. Jimenez and improved R hip mobility and was roseanne to get a pop which felt good. He does 10 min ea of bike, stair and treadmill as many days a week he can. Can walk one mile now. Pt reports pain level is higher than he would like. He is coming off oxy now (5mg x5x day). He wants to get off the oxy and started 2 days ago to come off oxy. Reports he has been doing some prydeinig chi via videos. Pt reports he can't do much around of the house. Motivation is limiting him too . Pt reports changing position and turning corners increases pain and pt notes dec balance . Prior Treatments and Tests DO, PT mult bouts in past, ablations & working w/painter hand Treatment Goals Patient/Caregiver Goals keep R hip going right way, be able to lift and move stuff in shop PT-OP-C Subjective Start: 01/21/21 17:48 Freq: Status: Active Protocol: Document 06/02/21 13:00 [facility] (Rec: 06/02/21 15:17 [facility] [id number]) OP-PT Subjective Patient Comments Patient Comments Pt reports he has been having more bad days than he would like. He has been working out. PT-OP-D Balance Start: 01/21/21 17:48 Freq: Status: Active Protocol: Document 05/07/21 10:40 [facility] (Rec: 05/07/21 12:09 [facility] [id number]) Balance Tests Single Limb Standing Single Limb- Right 2 Single Limb- Left 2 PT-OP-F Manual Assessment Start: 01/21/21 17:48 Freq: Status: Active Protocol: Document 01/22/21 13:43 [facility] (Rec: 01/22/21 14:36 [facility] [id number]) Manual Assessments Soft Tissue Assessment Soft Tissue Mobility Assessment all lumbar and thoracic and R glute tender PT-OP-G Mobility & Gait Start: 01/21/21 17:48 Freq: Status: Active Protocol: Document 01/22/21 13:43 [facility] (Rec: 01/22/21 14:36 [facility] [id number]) OP Gait Assessment Comments Gait Comments Amb WNL except after standing ext then staggeres to side often and reaches for wall w/ lat leaning PT-OP-J Posture/Palpation/Skin Start: 01/21/21 17:48 Freq: Status: Active Protocol: Document 06/02/21 13:00 [facility] (Rec: 06/02/21 15:17 [facility] [id number]) Posture Evaluation Laurita Postural Classification System Lumbar Protective Mechanism Left AP 1 Lumbar Protective Mechanism Right AP 1 Lumbar Protective Mechanism Left PA 0 Lumbar Protective Mechanism Right PA 0 PT-OP-K Range of Motion Start: 01/21/21 17:48 Freq: Status: Active Protocol: Document 01/22/21 13:43 [facility] (Rec: 01/22/21 14:36 [facility] [id number]) Lumbar Spine Range of Motion Lumbar Spine Active Degrees Rotation Left 45 Rotation Right 30 PT-OP-L Special Tests Start: 01/21/21 17:48 Freq: Status: Active Protocol: Document 01/22/21 13:43 [facility] (Rec: 01/22/21 14:36 [facility] [id number]) Special Tests Lumbar Spine Special Tests Slump Test Results R positive SLR Test Results 88 R HS tightness Comments 60 L-pain in LB-positive PT-OP-M Strength Start: 01/21/21 17:48 Freq: Status: Active Protocol: Document 06/02/21 13:00 [facility] (Rec: 06/02/21 15:17 [facility] [id number]) Hip Strength Hip Manual Muscle Testing Right Flexion (L2) 4 Good Extension (S1) 4 Good Abduction 4 Good Adduction 4 Good External Rotation 4 Good Internal Rotation 4+ Good+ Left Flexion (L2) 4+ Good+ Extension (S1) 4 Good Abduction 4 Good Adduction 4 Good External Rotation 4+ Good+ Internal Rotation 5 Normal Knee Strength Knee Manual Muscle Testing Right Flexion (S2) 5 Normal Extension (L3) 5 Normal Left Flexion (S2) 5 Normal Extension (L3) 5 Normal Ankle/Foot Strength Ankle and Foot Manual Muscle Testing Right Dorsiflexion (L4) 5 Normal Plantarflexion (S1) 4 Good Comments 12 heel raises Left Dorsiflexion (L4) 5 Normal Plantarflexion (S1) 4 Good Comments 12 heel raises PT-OP-Q Treatments Start: 01/21/21 17:48 Freq: Status: Active Protocol: Document 06/02/21 13:00 [facility] (Rec: 06/02/21 15:17 [facility] [id number]) Therapeutic Exercises Supine Exercises core Supine Exercise Name core engagement w/BKFO Side bilateral Reps/Minutes 5 pelvic tilt Supine Exercise Name 1.w/heel slide to SLR 2. march alt Side bilateral Reps/Minutes 5 LTR Supine Exercise Name comfortable range Side bilateral Reps/Minutes 5 Sidelying Exercises open book Sidelying Exercise Name fwd reach then torso rot Side bilateral Reps/Minutes 8 Comments comfortable range Other Exercises nemesio pose Other Exercise Name fwd Reps/Minutes 30sec x3 quadruped Other Exercise Name 1. alt arm flex 2. alt hip ext Side bilateral Reps/Minutes 5 ea Comments max cues for neutral spine and not rotating at lumbar Manual Therapy Treatment Soft Tissue Mobilization 5 Body Location R QL & ES Mobilization Type Myofascial Release,Rolling Intensity/Depth Moderate Body Position Sidelying Joint Mobilizations 3 Joint sacral caudal glide & R caudal innominate PT-OP-R Modalities Start: 01/21/21 17:48 Freq: Status: Active Protocol: Document 06/02/21 13:00 [facility] (Rec: 06/02/21 15:17 [facility] [id number]) Hot Pack/Cold Pack Treatment Cold Pack Location lumbar & thoracic Patient Position Prone Treatment Duration (minutes) 10 PT-OP-S Aquatic Treatment Start: 04/10/21 14:29 Freq: Status: Active Protocol: Document 05/06/21 15:30 [facility] (Rec: 05/06/21 15:41 [facility] [id number]) Aquatics Treatment Pool Entry/Exit Pool Entry/Exit Method Stairs Assistance Independent Water Walking circumduction f/b Water Level Chest Level Walking Equipment Ankle Floats Level of Assistance Verbal Cues Comments several LOB episodes fwd Lunge Walk Water Level Waist Level Walking Equipment Ankle Floats Level of Assistance Verbal Cues Marching Water Level Chest Level Walking Equipment Ankle Floats Level of Assistance Verbal Cues backward w/BS arms Water Level Chest Level Walking Equipment Ankle Floats Level of Assistance Verbal Cues fw,bk,s to s Water Level Chest Level Walking Equipment Ankle Floats Level of Assistance Verbal Cues Comments faster pace than last session Lower Extremity Exercises 4 way hip Details HH on wall Body Position Standing Water Level Chest Level Equipment Ankle Floats Reps/Duration 15 B each Lower Extremity Stretches piriformis Details at wall Body Position Sitting Water Level Waist Level Reps/Duration 2 x 30 sec B SNTC, DKTC Details at wall Body Position Standing Reps/Duration 2 x 30 sec B and DKTC hip flexors Details at wall Body Position Standing Water Level Waist Level Reps/Duration 2 x 30 se B HS, Quads Details at stairs Body Position Standing Reps/Duration 2 x 30 sec ea Upper Extremity Exercises trunk rotations with 90/90 arms Body Position Standing Water Level Chest Level Reps/Duration 10 HABD/HADD Body Position Standing Water Level Chest Level Reps/Duration 10 lat pulldown Body Position Standing Water Level Chest Level Reps/Duration 10 Spinal Exercises buoy pulldown Details at wall Body Position Sitting Equipment M buoys Reps/Duration 15 each direction Comments flex, rotate s 2 s Balance seated on noodle Body Position Sitting Water Level Chest Level Equipment lg noodle Reps/Duration 3 min Comments pulling self around [place] Activities [place] Activities Cross [place],Running,Hip Abduction/Adduction Other Activities pendulum Equipment belt, M BBs Duration 12 min PT-OP-T Assessment and Plan Start: 01/21/21 17:48 Freq: Status: Active Protocol: Document 06/02/21 13:00 [facility] (Rec: 06/02/21 15:17 [facility] [id number]) Physical Therapy Assessment Goals activities Short Term Goal (STG) Pt will be able to demo good lifting mechanics for PT in order to dec pain when doing lifting activities at home. 05/07- hasn't been lifting recently, much improved mechanics but still 1/3-still bends at tspine to burr picker something from gorund STG Duration min cues w/light weight Focuser Goal (LTG) Pt will be able to lift and move objects in house w/o inc of pain more than 08/04. 1/3-can lift up to 50# from floor to table if he focuses on posture 10/04 05/07-has not been moving things recenlty LTG Duration has avoided any heavy lifting APRYL Impairment 23/50 Short Term Goal (STG) Pt will improve score to no higher than 18/50 to show improved functional ability. 03/30-30/50 STG Duration 22/50 no significant change since eval Focuser Goal (LTG) Pt will improve score to no higher than 13/50 to show improved functional ability. LTG Duration not met strength Short Term Goal (STG) Pt will perform HEP w/good mechanics w/o cues needed 1/3-improving but cues still required STG Duration achieved and pt dc w/HEP Focuser Goal (LTG) Pt will score at least 3/5 on EFT and LPM and score 5/5 LE strength in all planes to allow for greater ease of movement 1/3-some improvement 05/07-minor improvement LTG Duration no major change balance Short Term Goal (STG) Pt will be able to turn corners w/o feeling of LOB. 3-no change 05/07-no change STG Duration no change Mcfp Goal (LTG) Pt will be able to do SLS at least 8 sec B to show improved balance.(current 1 sec R, 3 L ) 03/30- no change 1 sec R, L 2 sec 05/07-2 sec B LTG Duration 3 sec B but uses wall to get set up Assessment Summary Assessment Pt is no longer is making progress with therapy and is indep w/HEP. Cues only needed w/keeping core engaged throughout entire exercise vs stopping as he was lowering the leg. DC pt to home program at this time d/t plateau in progress. Physical Therapy Plan Frequency and Duration Duration of Treatment today Plan of Care Start Date 06/02/21 Plan of Care End Date 06/02/21 Therapeutic Interventions Therapeutic Interventions Aquatic Therapy,Balance Training,Gait Training,Home Exercise Program,Joint Mobilizations,Manual Therapy, Neuromuscular Re-education, Patient/Caregiver Education, Self-Care/Home Management,Soft Tissue Mobilization,Taping, Therapeutic Activities, Therapeutic Exercises Modalities Cold Pack/Ice Massage,Electric Stimulation,Hot Packs, Ultrasound Discharge Physical Therapy Discharge Reasons Plateau in Progress
--- NOTE | 2021-06-02 15:17 | PT.OPPOC ---
Physical, Occupational & Speech Therapy At [facility] Current Diagnoses Spondylosis without myelopathy or radiculopathy, thoracic region (06/02/21) Spinal stenosis, lumbar region with neurogenic claudication (06/02/21) Muscle weakness (generalized) (06/02/21) Difficulty in walking, not elsewhere classified (06/02/21) Abnormal posture (06/02/21) Visit Care Team Role Provider Type Kathrine Zuniga DO Attending Provider Non-Staff Primary Care Provider Referring Provider Specialty: Family Practice Address: [address] [place] [address], [id number] Email: Plan Of Care PT-OP-T Assessment and Plan Start: 01/21/21 17:48 Freq: Status: Active Protocol: Document 06/02/21 13:00 [facility] (Rec: 06/02/21 15:17 [facility] [id number]) Physical Therapy Assessment Goals activities Short Term Goal (STG) Pt will be able to demo good lifting mechanics for PT in order to dec pain when doing lifting activities at home. 05/07- hasn't been lifting recently, much improved mechanics but still 1/3-still bends at tspine to machine operator picker something from gorund STG Duration min cues w/light weight Research Librarian Goal (LTG) Pt will be able to lift and move objects in house w/o inc of pain more than 5/10. 1/3-can lift up to 50# from floor to table if he focuses on posture 10/04 05/07-has not been moving things recenlty LTG Duration has avoided any heavy lifting APRYL Impairment 23/50 Short Term Goal (STG) Pt will improve score to no higher than 18/50 to show improved functional ability. 1/3-30/50 STG Duration 22/50 no significant change since eval Halfway Goal (LTG) Pt will improve score to no higher than 13/50 to show improved functional ability. LTG Duration not met strength Short Term Goal (STG) Pt will perform HEP w/good mechanics w/o cues needed 1/3-improving but cues still required STG Duration achieved and pt dc w/HEP Halfway Goal (LTG) Pt will score at least 3/5 on EFT and LPM and score 5/5 LE strength in all planes to allow for greater ease of movement 03/30-some improvement 05/07-minor improvement LTG Duration no major change balance Short Term Goal (STG) Pt will be able to turn corners w/o feeling of LOB. 03/30-no change 05/07-no change STG Duration no change Research Librarian Goal (LTG) Pt will be able to do SLS at least 8 sec B to show improved balance.(current 1 sec R, 3 L ) 03/30- no change 1 sec R, L 2 sec 05/07-2 sec B LTG Duration 3 sec B but uses wall to get set up Assessment Summary Assessment Pt is no longer is making progress with therapy and is indep w/HEP. Cues only needed w/keeping core engaged throughout entire exercise vs stopping as he was lowering the leg. DC pt to home program at this time d/t plateau in progress. Physical Therapy Plan Frequency and Duration Duration of Treatment today Plan of Care Start Date 06/02/21 Plan of Care End Date 06/02/21 Therapeutic Interventions Therapeutic Interventions Aquatic Therapy,Balance Training,Gait Training,Home Exercise Program,Joint Mobilizations,Manual Therapy, Neuromuscular Re-education, Patient/Caregiver Education, Self-Care/Home Management,Soft Tissue Mobilization,Taping, Therapeutic Activities, Therapeutic Exercises Modalities Cold Pack/Ice Massage,Electric Stimulation,Hot Packs, Ultrasound Discharge Physical Therapy Discharge Reasons Plateau in Progress Plan of Care Dates Plan of Care Start Date 06/02/21 Plan of Care End Date 06/02/21 Electronically Signed by: Cristina Lee, PT 06/02/21 [id number] Please Sign and Return: I have reviewed this Plan of Care and certify that the skilled therapy services above are required to meet the patient?s needs. Physician Signature Date Printed Name and Credentials Clinical Instructor Signature Printed Name and Credentials
--- NOTE | 2021-06-02 15:17 | PT.OPDS ---
Current Diagnoses Spondylosis without myelopathy or radiculopathy, thoracic region (06/02/21) Spinal stenosis, lumbar region with neurogenic claudication (06/02/21) Muscle weakness (generalized) (06/02/21) Difficulty in walking, not elsewhere classified (06/02/21) Abnormal posture (06/02/21) Visit Care Team Role Provider Type Kathrine Zuniga DO Attending Provider Non-Staff Primary Care Provider Referring Provider Specialty: [facility] Practice Address: [address] [place] [address], [facility] Email: Visit Number Visit Number 20 Discharge Summary PT-OP-B Current Condition Start: 01/21/21 17:48 Freq: Status: Active Protocol: Document 01/22/21 13:43 [facility] (Rec: 01/22/21 14:36 [facility] [id number]) Current Condition History of Current Condition Onset Date chronic Current Complaints thoracic and lumbar pain History of Current Condition Pt reports Sept was pretty rough. He is coming off oxy at this time. He was fixing up a gutter and there was a yellow jacket nest and he got a lot of bites and fell off the ladder and hit his head. He is on prednisone to help w/ inflamation since mid Nov and was going off oxy for 10 day of prednisone but went back on oxy after. He had an appt 2 weeks ago to redo thoracic ablation (T10-12) and is awaiting for it to be scheduled then a few weeks later get lumbar block. Pt reports he cont HEP and DO rx. He saw Dr. Zuniga and improved R hip mobility and was roseanne to get a pop which felt good. He does 10 min ea of bike, stair and treadmill as many days a week he can. Can walk one mile now. Pt reports pain level is higher than he would like. He is coming off oxy now (5mg x5x day). He wants to get off the oxy and started 2 days ago to come off oxy. Reports he has been doing some beninese chi via videos. Pt reports he can't do much around of the house. Motivation is limiting him too . Pt reports changing position and turning corners increases pain and pt notes dec balance . Prior Treatments and Tests DO, PT mult bouts in past, ablations & working w/painter barrel Treatment Goals Patient/Caregiver Goals keep R hip going right way, be able to lift and move stuff in shop PT-OP-C Subjective Start: 01/21/21 17:48 Freq: Status: Active Protocol: Document 06/02/21 13:00 [facility] (Rec: 06/02/21 15:17 [facility] [id number]) OP-PT Subjective Patient Comments Patient Comments Pt reports he has been having more bad days than he would like. He has been working out. PT-OP-D Balance Start: 01/21/21 17:48 Freq: Status: Active Protocol: Document 05/07/21 10:40 [facility] (Rec: 05/07/21 12:09 [facility] [id number]) Balance Tests Single Limb Standing Single Limb- Right 2 Single Limb- Left 2 PT-OP-F Manual Assessment Start: 01/21/21 17:48 Freq: Status: Active Protocol: Document 01/22/21 13:43 [facility] (Rec: 01/22/21 14:36 [facility] [id number]) Manual Assessments Soft Tissue Assessment Soft Tissue Mobility Assessment all lumbar and thoracic and R glute tender PT-OP-G Mobility & Gait Start: 01/21/21 17:48 Freq: Status: Active Protocol: Document 01/22/21 13:43 [facility] (Rec: 01/22/21 14:36 [facility] [id number]) OP Gait Assessment Comments Gait Comments Amb WNL except after standing ext then staggeres to side often and reaches for wall w/ lat leaning PT-OP-J Posture/Palpation/Skin Start: 01/21/21 17:48 Freq: Status: Active Protocol: Document 06/02/21 13:00 [facility] (Rec: 06/02/21 15:17 [facility] [id number]) Posture Evaluation Laurita Postural Classification System Lumbar Protective Mechanism Left AP 1 Lumbar Protective Mechanism Right AP 1 Lumbar Protective Mechanism Left PA 0 Lumbar Protective Mechanism Right PA 0 PT-OP-K Range of Motion Start: 01/21/21 17:48 Freq: Status: Active Protocol: Document 01/22/21 13:43 [facility] (Rec: 01/22/21 14:36 [facility] [id number]) Lumbar Spine Range of Motion Lumbar Spine Active Degrees Rotation Left 45 Rotation Right 30 PT-OP-L Special Tests Start: 01/21/21 17:48 Freq: Status: Active Protocol: Document 01/22/21 13:43 [facility] (Rec: 01/22/21 14:36 [facility] [id number]) Special Tests Lumbar Spine Special Tests Slump Test Results R positive SLR Test Results 88 R HS tightness Comments 60 L-pain in LB-positive PT-OP-M Strength Start: 01/21/21 17:48 Freq: Status: Active Protocol: Document 06/02/21 13:00 [facility] (Rec: 06/02/21 15:17 [facility] [id number]) Hip Strength Hip Manual Muscle Testing Right Flexion (L2) 4 Good Extension (S1) 4 Good Abduction 4 Good Adduction 4 Good External Rotation 4 Good Internal Rotation 4+ Good+ Left Flexion (L2) 4+ Good+ Extension (S1) 4 Good Abduction 4 Good Adduction 4 Good External Rotation 4+ Good+ Internal Rotation 5 Normal Knee Strength Knee Manual Muscle Testing Right Flexion (S2) 5 Normal Extension (L3) 5 Normal Left Flexion (S2) 5 Normal Extension (L3) 5 Normal Ankle/Foot Strength Ankle and Foot Manual Muscle Testing Right Dorsiflexion (L4) 5 Normal Plantarflexion (S1) 4 Good Comments 12 heel raises Left Dorsiflexion (L4) 5 Normal Plantarflexion (S1) 4 Good Comments 12 heel raises PT-OP-T Assessment and Plan Start: 01/21/21 17:48 Freq: Status: Active Protocol: Document 06/02/21 13:00 [facility] (Rec: 06/02/21 15:17 [facility] [id number]) Physical Therapy Assessment Goals activities Short Term Goal (STG) Pt will be able to demo good lifting mechanics for PT in order to dec pain when doing lifting activities at home. 05/07- hasn't been lifting recently, much improved mechanics but still 1/3-still bends at tspine to rock picker something from gorund STG Duration min cues w/light weight Correction Goal (LTG) Pt will be able to lift and move objects in house w/o inc of pain more than /10. 1/3-can lift up to 50# from floor to table if he focuses on posture 10/04 05/07-has not been moving things recenlty LTG Duration has avoided any heavy lifting APRYL Impairment 2350 Short Term Goal (STG) Pt will improve score to no higher than 18/50 to show improved functional ability. 1- STG Duration no significant change since eval Correction Goal (LTG) Pt will improve score to no higher than 13/50 to show improved functional ability. LTG Duration not met strength Short Term Goal (STG) Pt will perform HEP w/good mechanics w/o cues needed 1/3-improving but cues still required STG Duration achieved and pt dc w/HEP Correction Goal (LTG) Pt will score at least 3/5 on EFT and LPM and score 5/5 LE strength in all planes to allow for greater ease of movement 1-some improvement 05/07-minor improvement LTG Duration no major change balance Short Term Goal (STG) Pt will be able to turn corners w/o feeling of LOB. 03/30-no change 05/07-no change STG Duration no change Correction Goal (LTG) Pt will be able to do SLS at least 8 sec B to show improved balance.(current 1 sec R, 3 L ) 03/30- no change 1 sec R, L 2 sec 05/07-2 sec B LTG Duration 3 sec B but uses wall to get set up Assessment Summary Assessment Pt is no longer is making progress with therapy and is indep w/HEP. Cues only needed w/keeping core engaged throughout entire exercise vs stopping as he was lowering the leg. DC pt to home program at this time d/t plateau in progress. Physical Therapy Plan Frequency and Duration Duration of Treatment today Plan of Care Start Date 06/02/21 Plan of Care End Date 06/02/21 Therapeutic Interventions Therapeutic Interventions Aquatic Therapy,Balance Training,Gait Training,Home Exercise Program,Joint Mobilizations,Manual Therapy, Neuromuscular Re-education, Patient/Caregiver Education, Self-Care/Home Management,Soft Tissue Mobilization,Taping, Therapeutic Activities, Therapeutic Exercises Modalities Cold Pack/Ice Massage,Electric Stimulation,Hot Packs, Ultrasound Discharge Physical Therapy Discharge Reasons Plateau in Progress
== END 2021-06-04 08:36 ==
LOC: PHYS 13:00
PROVIDERS: PCP Student in an Organized Health Care Education/Training Program; Referring Provider Student in an Organized Health Care Education/Training Program; Visit Provider Student in an Organized Health Care Education/Training Program
DX: M48.062 Spinal stenosis, lumbar region with neurogenic claudication (principal); M47.814 Spondylosis without myelopathy or radiculopathy, thoracic region; M62.81 Muscle weakness (generalized); R29.3 Abnormal posture; R26.2 Difficulty in walking, not elsewhere classified
CPT/HCPCS: 97110; 97113; 97140; 97162; 97535; 97750

== ENCOUNTER 2021-07-01 21:47 | Emergency (ER) | payer OTHER, MEDICAID, SELFPAY ==
[2021-07-01 21:50] VITALS: BP 172/102; PULSE 82; RESP 17; TEMP 36.8; O2SAT 95; BMI 29.5
[2021-07-01 22:04] VITALS: BP 163/92; PULSE 84; O2SAT 95
--- NOTE | 2021-07-01 22:07 | ED_ITS ---
HPI - Head Injury General Chief complaint: Head Injury Stated complaint: hit in head by a heavy door, unsteady Time Seen by Provider: 07/01/21 22:07 Source: patient Mode of arrival: Wheelchair History of Present Illness HPI Narrative: The patient sustained an injury to the vertex of his head about 02 24 today. He was unloading a [employer] trailer. The door was not last. The door came down, striking him in the vertex of his head. He has ongoing headache, and neck pain. He has no visual changes, there was no syncope. He has no chest pain or dyspnea. There is no weakness or numbness in his arms or legs. He has a pain shooting intermittently in the right medial thigh. He has chronic low back pain. He is on multiple medications for chronic pain. He took his combination of Meloxicam, Oxycodone, and Sumatriptan prior to coming in [facility]. Related Data Previous Rx's Medication Instructions Recorded sumatriptan succinate 25 mg tablet 25 mg PO PRN PRN #90 tab 05/04/21 lisinopril 20 mg tablet 20 mg PO DAILY #90 tab 05/28/21 meloxicam 15 mg tablet 7.5 - 15 mg PO DAILY #90 tab 05/28/21 oxycodone 5 mg capsule 5 mg PO TID PRN #90 cap 06/29/21 Allergies Allergy/AdvReac Type Severity Reaction Status Date / Time No Known Drug Allergies Allergy Verified 06/24/21 11:25 Review of Systems Constitutional Constitutional: Reports as per HPI, Denies daytime sleepiness, Denies fever(s), Denies frequent falls, Reports headache(s), Denies malaise and Denies weakness Eyes Eyes: Denies change in vision and Denies diplopia ENT Ears, Nose, Mouth, and Throat: Denies vertigo, Denies dizziness, Denies facial pain and Reports headache(s) Cardiovascular Cardiovascular: Denies chest pain, Denies syncope, Denies rapid heart rate and Denies dyspnea Respiratory Respiratory: Denies cough and Denies dyspnea Gastrointestinal Gastrointestinal: Denies abdominal pain and Denies nausea Genitourinary Genitourinary: Denies urinary incontinence Musculoskeletal Musculoskeletal: Reports as per HPI Neurologic Neurologic: Denies vertigo, Denies dizziness, Denies syncope, Denies frequent falls, Reports headache(s) and Denies weakness Hematologic/Lymphatic On Anticoagulants: No Patient History Medical History Arthritis Bilateral leg cramps Cervical somatic dysfunction Chronic back pain (~1970) Chronic pain syndrome Cranial somatic dysfunction HTN (hypertension) Hyperlipidemia Left elbow pain Low back pain Lumbar region somatic dysfunction Migraine Migraines Numbness and tingling Pelvic somatic dysfunction Sacral region somatic dysfunction Sciatica Segmental and somatic dysfunction of abdomen and other regions Short leg syndrome, left, acquired Somatic dysfunction of lower extremity Subcutaneous mass of back Thoracic region somatic dysfunction Upper extremity somatic dysfunction Wound dehiscence, external operation Surgical History Anesthesia History of back surgery (~05/2020) Hx of shoulder surgery (~08/2019) Hx of tonsillectomy Hx of umbilical hernia repair (06/16/17) S/P excision of ganglion cyst Family History Father Hypertension Mother History of heart disease Social History marital status: unknown household members: none occupational status: previously employed Smoking Status: Never smoker alcohol intake: current substance use type: marijuana Smoking Status: Never smoker alcohol intake frequency: 0-2 drinks per day Substance Use Type: marijuana Exam Initial Vital Signs Initial Vital Signs: Vital Signs Temperature 98.3 F 07/01/21 21:50 Pulse Rate 82 07/01/21 21:50 Respiratory Rate 17 07/01/21 21:50 Blood Pressure 172/102 H 07/01/21 21:50 Pulse Oximetry 95 07/01/21 21:50 Const General: cooperative, healthy appearing, well developed and well groomed Nutritional Appearance: average body habitus [facility] Head: normal to inspection and other (Tenderness to the scalp vertex, no contusion, no visible wound.) Ears: TM's normal bilaterally Nose: nares normal Face and sinus: normal facial exam Mouth: oral mucosae normal Throat: posterior oropharynx normal Eyes Pupils: PERRL EOM: EOM intact bilaterally Neck Other: Tenderness to the mid and lower central cervical spine. Resp Auscultation: clear to auscultation bilaterally Cardio Rate: regular rate Rhythm: regular rhythm Heart Sounds: S1 normal and S2 normal Back/Spine/Pelvis Back: normal to inspection Skin General: no rashes or lesions noted Neuro General: patient alert, patient awake, patient oriented x3, oriented and no focal motor deficits Other: Motor and sensory exam are intact in all extremities. Extrem General: normal to inspection and full ROM Course Course Course Narrative: The patient has a notable head injury with headache, neck pain, and pain shooting in his right medial thigh. This is likely associated with his lumbar osteoarthritis. He has no obvious neurologic deficits in any of the extremities. Head CT is benign. Neck CT reveals DJD, no acute bony injury. We discussed a soft collar, he declined the soft collar when offered. Significant rest over the next 3 days is recommended, along with his current medications. He is planning follow-up with his PCM. Orders Ordered: ED Orders 07/01/21 22:14 CT cervical spine wo con Stat CT head/brain wo con Stat Vital Signs Vital signs: Vital Signs - 8 hr 07/01/21 21:50 07/01/21 22:04 Temperature 98.3 F Pulse Rate 82 84 Respiratory Rate 17 Blood Pressure 172/102 H 163/92 H Pulse Oximetry 95 95 MDM - Head Injury Imaging Data CT scan - head: Radiologist's Impression: 1. No acute intracranial abnormality. ? 2. Mild cerebral volume loss and chronic small vessel ischemic changes. CT - cervical spine: Radiologist's Impression: 1. No fracture or subluxation. ? 2. Multilevel degenerative changes throughout the cervical spine.? ? Discharge Plan Departure Patient Disposition: Home Clinical Impression: Concussion, Cervical osteoarthritis, Cervical myofascial strain Instructions: Concussion, DI for Osteoarthritis Activity Restrictions/Additional Instructions: Apply cool compresses to your neck and head frequent flex 3 days. Continue current regimen of pain medications. Soft collar for comfort. I recommend you limit her activity as much as possible over the next 3days, rest as much as possible. Head neck discomfort is not improving over the next week, consider physical therapy Return here as needed. Prescriptions: No Action sumatriptan succinate 25 mg tablet 25 mg PO PRN PRN (Reason: Migraine Headache) Qty: 90 3RF lisinopril 20 mg tablet 20 mg PO DAILY Qty: 90 3RF meloxicam 15 mg tablet 7.5 - 15 mg PO DAILY Qty: 90 3RF oxycodone 5 mg capsule 5 mg PO TID PRN (Reason: pain) Qty: 90 0RF Referrals: Bill Machado MD [Primary Care Provider] -
--- NOTE | 2021-07-01 22:14 | DI.CT.S_ITS ---
PROCEDURE: CT HEAD/BRAIN WO CON INDICATIONS: Severe headache. Head injury. TECHNIQUE: Noncontrast 4.5 mm thick angled axial sections acquired from the foramen magnum to the vertex, with coronal and sagittal reformats. For radiation dose reduction, the following was used: automated exposure control, adjustment of mA and/or kV according to patient size. COMPARISON: [facility], MR, MR BRAIN WITHOUT CONTRAST, 05/23/2019, 8:49. FINDINGS: Image quality: Excellent. CSF spaces: Basal cisterns are patent. No extra-axial fluid collections. There is mild cerebral volume loss, with resultant ventricular and sulcal prominence. A cavum septum pellucidum is noted. Brain: No intracranial hemorrhage, mass, or mass effect. There are subcortical, periventricular and deep white matter hypodensities consistent with mild chronic small vessel ischemic changes. The hernandez-white matter junction appears preserved. There is intracranial internal carotid artery atherosclerosis. Skull and face: Calvarium and visualized facial bones appear intact, without suspicious lesions. Sinuses: Visualized sinuses and mastoids are clear. IMPRESSION: 1. No acute intracranial abnormality. 2. Mild cerebral volume loss and chronic small vessel ischemic changes. Dictated by: Per Loyola M.D. on 07/01/2021 at 22:40 Approved by: Per Loyola M.D. on 07/01/2021 at 22:42
--- NOTE | 2021-07-01 22:14 | DI.CT.S_ITS ---
PROCEDURE: CT CERVICAL SPINE WO CON INDICATIONS: Head injury. Associated neck pain. TECHNIQUE: Noncontrast 3 mm thick sections acquired from the skull base to the T4 level. Sagittal and coronal reformats were then constructed. For radiation dose reduction, the following was used: automated exposure control, adjustment of mA and/or kV according to patient size. COMPARISON: None. FINDINGS: Image quality: Excellent. Bones: No fractures or subluxation. There is straightening of the cervical lordosis. There is multilevel degenerative disc disease including moderate degeneration in the mid and lower cervical spine. There is also mild to moderate multilevel facet arthropathy throughout the cervical spine. Visualized superior ribs are intact. Soft tissues: Prevertebral soft tissues are normal in thickness. No paravertebral hematomas. No apical pneumothoraces. IMPRESSION: 1. No fracture or subluxation. 2. Multilevel degenerative changes throughout the cervical spine. Dictated by: Per Loyola M.D. on 07/01/2021 at 22:42 Approved by: Per Loyola M.D. on 07/01/2021 at 22:47
[2021-07-01 22:30] VITALS: PULSE 79; O2SAT 95
[2021-07-01 23:20] VITALS: PULSE 72; O2SAT 96
[2021-07-01 23:21] VITALS: BP 163/93; PULSE 72; O2SAT 96
== END 2021-07-01 23:26 | disposition home or self-care (01) ==
PROVIDERS: Emergency Provider Emergency Medicine; PCP Family Medicine
DX: S06.0X0A Concussion without loss of consciousness, initial encounter (principal); S16.1XXA Strain of muscle, fascia and tendon at neck level, initial encounter; M47.812 Spondylosis without myelopathy or radiculopathy, cervical region; W20.8XXA Other cause of strike by thrown, projected or falling object, initial encounter
CPT/HCPCS: 70450; 72125; 99283; 99284

== ENCOUNTER → 2021-08-19 09:44 | Outpatient (CLI) | payer OTHER, MEDICAID, SELFPAY ==
--- NOTE | 2021-08-19 09:45 | DI.MRI.S_ITS ---
PROCEDURE: MR HEAD/BRAIN WO CON INDICATIONS: memory changes, chronic headaches TECHNIQUE: Noncontrast axial T1 spin echo, axial T2 fast spin echo, sagittal and axial FLAIR, coronal T2 fast spin echo, axial gradient echo, axial diffusion and ADC through the brain. COMPARISON: None. FINDINGS: Image quality: Excellent. CSF Spaces: Basal cisterns are patent. No extra-axial fluid collections. Ventricles are normal in size and shape. Incidental persistent cavum septum pellucidum et vergae noted. Brain: No intracranial masses or hemorrhage. Flynn/white matter interface is normal. Brainstem appears normal. Diffusion-weighted images demonstrate no acute infarct. Normal intravascular flow voids are present. Mild atrophy and multifocal white matter chronic ischemic change present. Skull and face: Calvarium has normal marrow signal. Orbits appear normal. Sinuses: Sinuses and mastoids are clear. IMPRESSION: Mild atrophy and white matter chronic ischemic change without acute hemorrhage, infarct or mass lesion Approved by: Ulices Vaughn M.D. on 08/19/2021 at 11:29
== END ==
PROVIDERS: Family Provider Family Medicine; PCP Family Medicine; Referring Provider Family Medicine; Visit Provider Family Medicine
DX: G44.309 Post-traumatic headache, unspecified, not intractable (principal); F07.81 Postconcussional syndrome; G43.909 Migraine, unspecified, not intractable, without status migrainosus; G89.4 Chronic pain syndrome; R41.3 Other amnesia
CPT/HCPCS: 70551

== ENCOUNTER → 2021-09-11 15:08 | Outpatient (CLI) | payer OTHER, MEDICAID, SELFPAY ==
--- NOTE | 2021-09-11 15:09 | DI.RAD.S_ITS ---
PROCEDURE: XR LUMBAR SPINE MIN 4V INDICATIONS: BACK PAIN TECHNIQUE: 5 views of the lumbar spine were acquired, including bilateral oblique views. COMPARISON: [facility], CR, XR LUMBAR SPINE WITH OLBIQUES PLUS FLEXION EXTENSION, 06/11/2020, 13:53. [facility], CR, XR LUMBAR SPINE 1V, 11/09/2018, 11:02. FINDINGS: Bones: Bone mineralization is within normal limits. Wedge-shaped compression fractures are noted at L1 and L4 with 75% anterior height loss at L1 and approximately 30% anterior height loss at L4. No change from the prior exams. Hypertrophic facet joints and degenerative disc disease present throughout the exam, particularly in the lower lumbar spine. Grade 1 anterior spondylolisthesis at L4-5 is slightly increased from the prior. Soft tissues: Overlying bowel gas pattern is normal. No suspicious soft tissue calcifications. Oblique images: No pars defects. IMPRESSION: 1. Worsening grade 1 anterior spondylolisthesis L4-5 2. Degenerative disc disease and arthropathy particularly in the lower lumbar spine 3. Stable L1 and L4 compression fractures Approved by: Ulices Vaughn M.D. on 09/11/2021 at 14:46
== END ==
PROVIDERS: Family Provider Family Medicine; PCP Family Medicine; Referring Provider Physical Medicine & Rehabilitation; Visit Provider Physical Medicine & Rehabilitation
DX: M43.16 Spondylolisthesis, lumbar region (principal); M51.36 Other intervertebral disc degeneration, lumbar region; M47.816 Spondylosis without myelopathy or radiculopathy, lumbar region; M48.56XA Collapsed vertebra, not elsewhere classified, lumbar region, initial encounter for fracture; M54.9 Dorsalgia, unspecified
CPT/HCPCS: 72110

== ENCOUNTER → 2021-11-06 14:40 | Outpatient (CLI) | payer OTHER, MEDICAID, SELFPAY ==
[2021-11-06 18:25] LABS: Add Manual Diff / Slide Review NO; BUN Creatinine Ratio 27.8 (6-22); Basophils Absolute Auto 0 /uL (0-100); Basophils Percent Auto 0.4 % (0-2); Blood Urea Nitrogen 20 mg/dL (9-20); Calcium 8.7 mg/dL (8.4-10.2); Carbon Dioxide 23 mmol/L (22-32); Chloride 105 mmol/L (98-107); Eosinophils Absolute Auto 100 /uL (0-450); Eosinophils Percent Auto 1.2 % (2-4); Estimated Glomerular Filt Rate > 60 mL/min (>60); Glucose 102 mg/dL (80-110); HEMOLYSIS < 15 (0-50); Hematocrit 40.5 % (41-53); Hemoglobin 14.1 g/dL (13.5-17.5); Lymphocytes Absolute Auto 2200 /uL (1100-4500); Lymphocytes Percent Auto 29.1 % (25-40); Mean Corpuscular HGB Conc 34.8 % (30-36); Mean Corpuscular Hemoglobin 30.6 PG (26-34); Monocytes Absolute Auto 600 /uL (0-900); Monocytes Percent Auto 8.6 % (3-14); Neutrophils Absolute Auto 4600 /uL (1500-7000); Neutrophils Percent Auto 60.7 % (50-75); Platelet Count 238 X10^3/uL (150-400); Potassium 4.2 mmol/L (3.4-5.1); Red Blood Cell Count 4.61 X10^6/uL (4.5-5.9); Red Cell Distribution Width 12.9 % (11.6-14.8); Sodium 138 mmol/L (137-145); White Blood Cell Count 7.5 X10^3/uL (4.5-11.0)
[2021-11-06 19:45] LABS: Hemoglobin A1C% w Est Avg Glu 5.3 % (4.0-6.0)
== END ==
PROVIDERS: Family Provider Family Medicine; PCP Family Medicine; Referring Provider Orthopaedic Surgery Orthopaedic Surgery of the Spine; Visit Provider Orthopaedic Surgery Orthopaedic Surgery of the Spine
DX: Z01.818 Encounter for other preprocedural examination (principal); Z01.812 Encounter for preprocedural laboratory examination; R73.9 Hyperglycemia, unspecified
CPT/HCPCS: 36415; 80048; 83036; 85025; 93005

== ENCOUNTER → 2021-11-06 14:51 | Outpatient (CLI) | payer OTHER, MEDICAID, SELFPAY ==
--- NOTE | 2021-11-06 | DI.CT.S_ITS ---
PROCEDURE: CT LUMBAR SPINE WO CON INDICATIONS: Spinal stenosis, lumbar region without neurogenic claudicati TECHNIQUE: Noncontrast 3 mm thick sections acquired from the T12 level to the sacrum. Sagittal and coronal reformats were constructed. For radiation dose reduction, the following was used: automated exposure control. COMPARISON: [facility], CR, XR LUMBAR SPINE MIN 4V, 09/11/2021, 15:00. FINDINGS: Image quality: Excellent. Bones: Moderate compression deformity is seen at the L1 vertebral body with approximately 50% loss of vertebral body height anteriorly. The superior endplate extends posteriorly into the spinal canal by up to a 3 mm. There is 2 mm grade 1 retrolisthesis of L5 on S1, 3 mm grade 1 anterolisthesis of L4 on L5, and 2 mm grade 1 retrolisthesis of L2 on L3 and L1 on L2. No suspicious lytic or blastic bony lesions. No pars defects. T12-L1: 3 mm retropulsion of the superior endplate of L1 on is seen superimposed on disc space narrowing, anterior osteophyte formation, and mild bilateral facet hypertrophy. Findings result in mild narrowing of the bony spinal canal without significant neural foraminal narrowing. L1-L2: Grade 1 retrolisthesis of on L1 on L2 as well as disc space narrowing and circumferential disc bulging result in mild narrowing of the spinal canal and moderate bilateral neural foraminal narrowing. L2-L3: There is mild loss of disc space height and anterior osteophyte formation as well as circumferential disc bulging and mild facet hypertrophy, which result in mild narrowing of the spinal canal as well as moderate left and mild right neural foraminal narrowing. L3-L4: There is loss of disc space height, anterior osteophyte formation, and circumferential disc bulging with posterior disc-osteophyte complex as well as mild bilateral facet hypertrophy. Findings result in moderate narrowing of the spinal canal as well as moderate bilateral neural foraminal narrowing. L4-L5: Postsurgical changes are seen from prior right laminotomy. Grade 1 anterolisthesis of L4 on L5 with vacuum disc phenomenon and anterior osteophyte formation as well as circumferential disc bulging and moderate bilateral facet hypertrophy. The spinal canal is decompressed by the prior laminotomy. However, there appears to be moderate to severe bilateral neural foraminal narrowing. L5-S1: Loss of disc space height with vacuum disc phenomenon and anterior osteophyte formation as well as posterior disc-osteophyte complex and [id number] bilateral facet hypertrophy. Findings result in moderate bilateral neural foraminal narrowing without significant spinal canal stenosis. Soft tissues: No retroperitoneal masses or hematomas. Visualized aorta is normal in caliber and demonstrates atherosclerotic calcifications. IMPRESSION: 1. Multilevel degenerative disc disease and facet hypertrophy as well as multilevel degenerative spondylolisthesis throughout the lumbar spine as described in detail in the body of the report. 2. At L4-5 of the the spine is decompressed from a prior laminotomy. However, there appears to be moderate to severe bilateral neural foraminal narrowing. 3. Chronic L1 compression fracture with approximately 50% loss of vertebral body height. Dictated by: Lupillo Garg M.D. on 11/06/2021 at 16:49 Approved by: Lupillo Garg M.D. on 11/06/2021 at 17:01
== END ==
PROVIDERS: Family Provider Family Medicine; PCP Family Medicine; Referring Provider Orthopaedic Surgery Orthopaedic Surgery of the Spine; Visit Provider Orthopaedic Surgery Orthopaedic Surgery of the Spine
DX: Z01.818 Encounter for other preprocedural examination (principal); Z01.812 Encounter for preprocedural laboratory examination; M48.061 Spinal stenosis, lumbar region without neurogenic claudication; M51.36 Other intervertebral disc degeneration, lumbar region; M51.37 Other intervertebral disc degeneration, lumbosacral region; M43.16 Spondylolisthesis, lumbar region; M48.56XA Collapsed vertebra, not elsewhere classified, lumbar region, initial encounter for fracture; R73.9 Hyperglycemia, unspecified
CPT/HCPCS: 36415; 72131; 80048; 83036; 85025; 93005

== ENCOUNTER 2021-11-23 14:30 | Outpatient (RCR) | payer OTHER, MEDICAID, SELFPAY ==
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
--- NOTE | 2021-07-10 10:58 | PT.OPPOC ---
Physical, Occupational & Speech Therapy At [facility] Current Diagnoses Stiffness of other specified joint, not elsewhere classified (07/09/21) Spondylosis without myelopathy or radiculopathy, cervical region (07/09/21) Concussion with loss of consciousness of unspecified duration, initial encounter (07/09/21) Concussion with loss of consciousness of unspecified duration, subsequent encounter (07/09/21) Strain of muscle, fascia and tendon at neck level, initial encounter (07/09/21) Strain of muscle, fascia and tendon at neck level, subsequent encounter (07/09/21) Visit Care Team Role Provider Type Bill Machado MD Attending Provider Physician Family Provider Primary Care Provider Referring Provider Specialty: Family Practice Address: [address] [place] [address], [employer] [facility] [employer] Email: [email or web address] Plan Of Care PT-OP-T Assessment and Plan Start: 07/09/21 17:37 Freq: Status: Active Protocol: Document 07/09/21 16:00 DCW (Rec: 07/10/21 10:58 DCW [id number]) Physical Therapy Assessment Rehab Potential Rehabilitation Potential Fair Evaluation Complexity Number of Personal Factors/Comorbidities 3 or More Number of Body Systems Impaired 4 or More Clinical Presentation at Evaluation Unstable Impairments Impairments Balance,Functional Activities, Functional Mobility,Pain,ROM, Soft Tissue Mobility,Tone Other Concerns Barriers to Rehabilitation Complex medical history, chronic pain, imbalance/ dizziness, cognitive complaints following concussion, high symptoms severity score (101/132) on SCAT 5. Goals Three Impairment Pt has symptom severity score of 101/132 on SCAT 5 symptom list Shelter Goal (LTG) Pt to reduce symptom severity score on SCAT 5 to <50/132 to show improved ability to participate in ADLs without severe post-concussion symptoms LTG Duration 09/08/21 Two Impairment Severely restricted cervical ROM secondary to pain Short Term Goal (STG) Pt to increase cervical flexion/extension to 40?/20? respectively in order to improve ability to properly look for obstacles during ambulation STG Duration 08/08/21 Commercial Maintenance Technician Goal (LTG) Pt to improve cervical rotation to at least 30? bilaterally in order to improve ability to safely look for traffic while driving vehicle LTG Duration 09/08/21 One Impairment Pt does not have an appropriate home exercise program Short Term Goal (STG) Pt to be independent and compliant with an appropriate HEP STG Duration 08/08/21 Assessment Summary Assessment Pt presents with significant symptoms s/p concussion and neck injury following a heavy door coming down onto his head when he was unloading a truck . Pt's history of chronic pain and dizziness appear to have significantly worsened following this incident. Pt has significant pain response to palpation of right suboccipitals, right SCM, and left upper trap. Cervical ROM is severely limited in all planes with an empty end feel. Pt exhibits additional cognitive symptoms, reporting increased confusion with reading, balancing his checkbook, or trying to follow instructions. Pt should benefit from skilled therapy focusing on concussion recovery, returning to normal activity as tolerated in conjunction with STM, flexibility/stretching, and joint mobilization along cervical spine in order to reduce ongoing symptoms. Physical Therapy Plan Frequency and Duration Frequency of Treatment 2x/Week Duration of Treatment Two months Plan of Care Start Date 07/09/21 Plan of Care End Date 09/08/21 Therapeutic Interventions Therapeutic Interventions Balance Training,Coordination Training,Home Exercise Program ,Joint Mobilizations,Manual Therapy,Neuromuscular Re- education,Patient/Caregiver Education,Self-Care/Home Management,Soft Tissue Mobilization,Therapeutic Activities,Therapeutic Exercises Modalities Cold Pack/Ice Massage,Electric Stimulation,Hot Packs, Ultrasound Next Visit Focus/Plan Next Note Type Treatment Note Next Visit Plan STM, Stretching, Balance training Plan of Care Dates Plan of Care Start Date 07/09/21 Plan of Care End Date 09/08/21 Electronically Signed by: Gonzalo Alegre, PT 07/10/21 2937 Please Sign and Return: I have reviewed this Plan of Care and certify that the skilled therapy services above are required to meet the patient?s needs. Physician Signature Date Printed Name and Credentials Clinical Instructor Signature Printed Name and Credentials
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
--- NOTE | 2021-08-06 13:55 | PT-OP ANOTE ---
Pt difficulty coming to standing in waiting room, successful upon 3rd try using BUE. He reported headaches, but migraines have disappated, intermittent contact wall nearby as needed with little trunk sways for light stability while walking back to open table, longer distance than used to, private rooms unavailable. Pt completed stand>sit>supine at higher table, had increased pain once in supine, eyes watering, reported noise in open gym area and light overstimulating and can not stay for appt, came to standing and walked over to nearby chair for seated rest. Pt stated understood unable to accommodate quiet/dim light area today as has been able to do in the past. CONTENT CURATOR stated will walked with pt up to front close SBA with noted over scissor stepping and increase sway and caught self at wall self recovery. CONTENT CURATOR spoke with front staff to cancel today's appt and reasoning, CONTENT CURATOR offered to walk with pt back to car but pt stated no I can do it.
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
--- NOTE | 2021-09-17 15:16 | PT.OPPOC ---
Physical, Occupational & Speech Therapy At [facility] Current Diagnoses Stiffness of other specified joint, not elsewhere classified (09/17/21) Spondylosis without myelopathy or radiculopathy, cervical region (09/17/21) Concussion with loss of consciousness of unspecified duration, initial encounter (09/17/21) Concussion with loss of consciousness of unspecified duration, subsequent encounter (09/17/21) Strain of muscle, fascia and tendon at neck level, initial encounter (09/17/21) Strain of muscle, fascia and tendon at neck level, subsequent encounter (09/17/21) Visit Care Team Role Provider Type Bill Machado MD Attending Provider Physician Family Provider Primary Care Provider Referring Provider Specialty: Family Practice Address: [address] [place] [address], [facility] Email: [email or web address] Plan Of Care PT-OP-T Assessment and Plan Start: 07/09/21 17:37 Freq: Status: Active Protocol: Document 09/17/21 14:30 DCW (Rec: 09/17/21 15:15 DCW [id number]) Physical Therapy Assessment Impairments Impairments Balance,Functional Activities, Functional Mobility,Pain,ROM, Soft Tissue Mobility,Tone Goals Three Impairment Pt has symptom severity score of 101/132 on SCAT 5 symptom list Scaler Goal (LTG) Pt to reduce symptom severity score on SCAT 5 to <50/132 to show improved ability to participate in ADLs without severe post-concussion symptoms LTG Duration 11/17/21 Two Impairment Severely restricted cervical ROM secondary to pain Short Term Goal (STG) Pt to increase cervical flexion/extension to 40?/20? respectively in order to improve ability to properly look for obstacles during ambulation STG Duration 10/17/21 - improving (40?/18?) Scaler Goal (LTG) Pt to improve cervical rotation to at least 30? bilaterally in order to improve ability to safely look for traffic while driving vehicle LTG Duration Met One Impairment Pt does not have an appropriate home exercise program Short Term Goal (STG) Pt to be independent and compliant with an appropriate HEP STG Duration 10/17/21 - Improving Assessment Summary Assessment Pt showing good progress, gross improvement in all areas . Demonstrates pretty significant improvement in pain-free cervical ROM, although still somewhat limited vs normal, stopped with empty end-feel due to pain. Pt much better with cognitive function, demonstrated improved thought processing and problem solving . Continued PT indicated from improved function and decreased pain with mobility. Physical Therapy Plan Frequency and Duration Frequency of Treatment 2x/Week Duration of Treatment Two months Plan of Care Start Date 09/17/21 Plan of Care End Date 11/17/21 Therapeutic Interventions Therapeutic Interventions Balance Training,Coordination Training,Home Exercise Program ,Joint Mobilizations,Manual Therapy,Neuromuscular Re- education,Patient/Caregiver Education,Self-Care/Home Management,Soft Tissue Mobilization,Therapeutic Activities,Therapeutic Exercises Modalities Cold Pack/Ice Massage,Electric Stimulation,Hot Packs, Ultrasound Next Visit Focus/Plan Next Note Type Treatment Note Next Visit Plan cont to work manually to dec pain, try to start further gentle exercise Plan of Care Dates Plan of Care Start Date 09/17/21 Plan of Care End Date 11/17/21 Electronically Signed by: Gonzalo Alegre, PT 09/17/21 0030 If you are in agreement with this Plan of Care, please return a signed and dated copy. I have reviewed this Plan of Care and certify that the skilled therapy services above are required to meet the patient?s needs. Physician Signature Date Printed Name and Credentials Clinical Instructor Signature Printed Name and Credentials
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
--- NOTE | 2021-11-23 15:13 | PT.OPPOC ---
Physical, Occupational & Speech Therapy At [facility] Current Diagnoses Stiffness of other specified joint, not elsewhere classified (11/23/21) Spondylosis without myelopathy or radiculopathy, cervical region (11/23/21) Concussion with loss of consciousness of unspecified duration, initial encounter (11/23/21) Concussion with loss of consciousness of unspecified duration, subsequent encounter (11/23/21) Strain of muscle, fascia and tendon at neck level, initial encounter (11/23/21) Strain of muscle, fascia and tendon at neck level, subsequent encounter (11/23/21) Visit Care Team Role Provider Type Bill Machado MD Attending Provider Physician Family Provider Primary Care Provider Referring Provider Specialty: Family Practice Address: [address] [place] [address], [facility] Email: [email or web address] Plan Of Care PT-OP-T Assessment and Plan Start: 07/09/21 17:37 Freq: Status: Active Protocol: Document 11/23/21 14:30 DCW (Rec: 11/23/21 15:01 DCW [id number]) Physical Therapy Assessment Goals Three Impairment Pt has symptom severity score of 101/132 on SCAT 5 symptom list Provider Education Specialist Goal (LTG) Pt to reduce symptom severity score on SCAT 5 to <50/132 to show improved ability to participate in ADLs without severe post-concussion symptoms LTG Duration 11/17/21 Two Impairment Severely restricted cervical ROM secondary to pain Short Term Goal (STG) Pt to increase cervical flexion/extension to 40?/20? respectively in order to improve ability to properly look for obstacles during ambulation STG Duration 10/17/21 - improving (40?/18?) Usp Goal (LTG) Pt to improve cervical rotation to at least 30? 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 Pt's function does seem to vary visit to visit. Pt will be undergoing lumbar fusion next month, will discharge from skilled therapy at this time. Physical Therapy Plan Frequency and Duration Frequency of Treatment 1x/Week Duration of Treatment One day Plan of Care Start Date 11/23/21 Plan of Care End Date 11/24/21 Therapeutic Interventions Therapeutic Interventions Balance Training,Coordination Training,Home Exercise Program ,Joint Mobilizations,Manual Therapy,Neuromuscular Re- education,Patient/Caregiver Education,Self-Care/Home Management,Soft Tissue Mobilization,Therapeutic Activities,Therapeutic Exercises Modalities Cold Pack/Ice Massage,Electric Stimulation,Hot Packs, Ultrasound Discharge Physical Therapy Discharge Reasons No Longer Attending PT Next Visit Focus/Plan Next Note Type Discharge Summary Plan of Care Dates Plan of Care Start Date 11/23/21 Plan of Care End Date 11/24/21 Electronically Signed by: Gonzalo Alegre, PT 11/23/21 3938 If you are in agreement with this Plan of Care, please return a signed and dated copy. I have reviewed this Plan of Care and certify that the skilled therapy services above are required to meet the patient?s needs. Physician Signature Date Printed Name and Credentials Clinical Instructor Signature Printed Name and Credentials
== END 2021-11-24 11:57 ==
LOC: PHYS 14:30
PROVIDERS: Family Provider Family Medicine; PCP Family Medicine; Referring Provider Family Medicine; Visit Provider Family Medicine
DX: S16.1XXD Strain of muscle, fascia and tendon at neck level, subsequent encounter (principal); M47.812 Spondylosis without myelopathy or radiculopathy, cervical region; S06.0X9D Concussion with loss of consciousness of unspecified duration, subsequent encounter; M25.69 Stiffness of other specified joint, not elsewhere classified; S16.1XXA Strain of muscle, fascia and tendon at neck level, initial encounter; S06.0X9A Concussion with loss of consciousness of unspecified duration, initial encounter
CPT/HCPCS: 93010; 97110; 97140; 97163; 97535

== ENCOUNTER → 2021-12-09 11:54 | Outpatient (CLI) | payer OTHER, MEDICAID, SELFPAY ==
[2021-12-09 12:45] LABS: COVID19 -Nasal RAPID Negative (Negative)
== END ==
PROVIDERS: Family Provider Family Medicine; PCP Family Medicine; Referring Provider Orthopaedic Surgery Orthopaedic Surgery of the Spine; Visit Provider Orthopaedic Surgery Orthopaedic Surgery of the Spine
DX: Z20.822 Contact with and (suspected) exposure to COVID-19 (principal)
CPT/HCPCS: 87635; C9803

== ENCOUNTER 2021-12-11 06:29 | Inpatient (IN) | payer OTHER, MEDICAID, SELFPAY ==
[2021-12-02 14:11] VITALS: BMI 29.2
[2021-12-11] VITALS (18 sets, daily range): BP systolic 134–184; BP diastolic 77–101; PULSE 75–101; RESP 16–20; TEMP 36.6–37.6; O2SAT 92–100; BMI 29.2
--- NOTE | 2021-12-11 | DI.RAD.S_ITS ---
PROCEDURE: XR LUMBAR SPINE 2-3V INDICATIONS: L4-S1 FUSION TECHNIQUE: 3 intraoperative views of the lumbar spine were acquired. COMPARISON: [facility], CT, CT LUMBAR SPINE WO CON, 11/06/2021, 15:00. [facility], CR, XR LUMBAR SPINE MIN 4V, 09/11/2021, 15:00. [facility], CR, XR LUMBAR SPINE 1V, 11/09/2018, 11:02. FINDINGS: L4-S1 pedicle screw fixation with intervertebral body spacers. There is improved anterolisthesis of L4 on S1. IMPRESSION: Intraoperative guidance provided for L4-S1 pedicle screw fixation. Dictated by: Bucky Gonzalez M.D. on 12/11/2021 at 11:44 Approved by: Bucky Gonzalez M.D. on 12/11/2021 at 11:46
[2021-12-11] MEDS: LACTATED RINGERS 1,000 ML 100 ML IV ×3 (07:28→11:13)
[2021-12-11] MEDS: ACETAMINOPHEN 325 MG TABLET 975 MG PO (07:35)
--- NOTE | 2021-12-11 07:37 | PM.PREOP ---
Pre-operative Note COVID-19 COVID-19 status: Negative Result date/Date tested (Pos, Neg/Pending): 12/10/21 Criteria for continued procedure: Expected advancement of disease process, Possibility delay results in more complex future surgery or treatment, Increased loss of function, Continuing or worsening of significant or severe pain, Deterioration of the patient's condition or overall health and Delay expected to result in less-positive ultimate med/surg outcome Interval Note History & Physical reviewed/Exam performed by Physician: Yes Changes to H&P: No
[2021-12-11] MEDS: CEFAZOLIN 2 GM/100 ML PREMIX 100 ML IV ×3 (07:46→23:12)
[2021-12-11] MEDS: BUPIVACAINE LIPOSOME 266 MG/20 ML VIAL INJ (08:51)
[2021-12-11] MEDS: BUPIVACAINE 0.25% (PF) 60 ML, EPINEPHrine 0.3 MG INJ (08:52)
--- NOTE | 2021-12-11 11:33 | PM.OP.1 ---
Operative Date/Time/Diagnoses Date of procedure: 12/11/21 Time of procedure: 07:40 Pre-op diagnosis: 1. L4-5, L5-S1 spondylolisthesis 2. L4-5, L5-S1 spinal stenosis Post-op diagnosis: same Procedure & Clinicians Procedure: 1. L4-5, L5-S1 Postero-lateral and posterior interbody fusion 2. L4-5, L5-S1 interbody cage placement. 3. L4-5, L5-S1 decompressive laminectomy with bilateral facetecomies 4. L4-5, L5-S1 Posterior segmental instrumentation 5. [place] of bone marrow from iliac crest 6. Utilization of microsurgical technique and operating microscope 7. Utilization of robotic navigation Same procedure as scheduled: Yes Indications: Patient has been having chronic back pain and worsening lumbar radiculopathy. Patient failed multiple conservative management with worsening pain weakness and numbness in his lower extremity. Patient has been having difficulty performing activity of daily living. After discussing risks benefits of treatment options, patient elected proceed with surgery. Surgeon: Roland Yates Secretary To Board Of Commissioners: Alena Cabral Click Yes if Unassisted: No Anesthesia Type: General Operative Notes Closure Type: primary Specimen(s): none sent Prosthetic devices, grafts, tissues, transplants, or devices: Globus CREO MIS screws, Rise cages Applied: catheter Estimated Blood Loss (mL): 100 Blood products transfused: none Procedure in detail: Patient was seen in the preoperative area. Risks and benefits of the surgery was discussed with the patient. Informed consent was obtained from the patient and placed in the chart. Surgical site was marked. Patient was taken to the operative room. General anesthesia was administered. Prophylactic antibiotic was given to the patient less than 30 min before the incision was made. Patient was placed into a prone position on the Harrison table. Patient's back was then prepped and draped in the sterile fashion. Time-out was performed at this time. After patient was prepped and draped, patient's PSIS was palpated and marked bilaterally. Small 1 cm incision was made over the PSIS for placement of the reference probes. Two trocar was placed into the PSIS 1 on each side. The reference probe was attached to the trocar of the reference apparatus. At this time the C-arm imaging was used to confirm AP and lateral of L4-L5, L5-S1 vertebrae and merged the C-arm imaging using the FinalCAD robotic navigation system with the CT of the lumbar spine. After successful merging was completed and confirmed, skin marker was used to flor out the skin incision using the FinalCAD robotic arm. Bilateral incision was made at this time. Pre templated trajectory was used and guided using the FinalCAD robotic navigation system for bilateral L4, L5, S1 pedicle screw placement. This was done by using the robotic arm to guide the high-speed bur to make a cortical entry point. Next a drill was placed also using the robotic arm and guided using the navigation system drilling partially through bilateral L4, L5 and S1 pedicles. Next L4, L5, S1 pedicle screws it was pre templated and measured was placed onto the power bus driver school and inserted into the pedicles bilaterally. After all 6 screws were placed C-arm imaging was taken of both AP and lateral to confirm the placement. Excellent placement of the screws were confirmed and a matched precisely with the pre planned screw placement using the navigation system. MARs retractor was inserted using Novera Opticsivation guidence. Globus MARS retractors was placed inside the incision and docked onto the L4 and L5 lamina. Using microsurgical technique and operating microscope, a L4, L5 laminectomy and L4-5, L5-S1 facetectomy was performed using a Kerrison rongeur. Patient was found have severe lateral recess and neural foramen stenosis which was fully decompressed after the laminectomy facetectomy. More than 75% of the facets were removed during the process of decompression rendering L4-5, L5-S1 level grossly unstable and required a fusion procedure at the same time. The disc space at L4-5, L5-S1 was identified, and a total diskectomy was performed at L4-5, L5-S1 level. The endplates were decorticated using a rasp and shaver. The total diskectomy and decortication was performed at L4-5, L5-S1 level in order to to accomplish a L4-5, L5-S1 fusion. The local bone from the laminectomy and facetectomy was saved for local bone grafting. After the total diskectomy and decortication was completed, Trifecta bone graft material was combined with local bone that was harvested earlier. At this time, a separate skin is incision was made over the iliac crest. A Jamshidi needle was inserted into the iliac crest through a separate skin incision. 5 cc of bone marrow aspiration was obtained through the separate skin incision using a Jamshidi needle from the iliac crest. The bone marrow aspiration was combined with local bone and the Trifecta bone grafting material. The bone grafting material was placed into the L4-5, L5-S1 interbody space along with a expandable cage. The cage was expanded to its maximum height using the torque limiting screwdriver. The disc preparation as well as the cage insertion were also performed under navigation guidance. After the cage was placed, AP and lateral C-arm imaging was taken to confirm placement of the cage and excellent position was confirmed. Globus MARS retractor was inserted and docked onto the L4-5, L5-S1 posterolateral gutter on the right side. Using the power drill, posterior-lateral decortication was performed at L4-5, L5-S1 level until bleeding cortical bone was identified. The remaining bone grafting material was placed into the L4-5, L5-S1 posterior lateral gutter he order to accomplish posterolateral fusion at the L4-5, L5-S1 level. At this time the tulips were attached to the L4, L5, S1 pedicle screw shanks. After measuring the length of the rods, they were inserted into the tulips of the pedicle screws and locked in place using locking caps and torque limiting screwdriver bilaterally. Total 6 caps and 2 titanium rods was used in order to complete the posterior instrumentation construct. After all the hardware was placed, and confirmed with AP and lateral C-arm imaging, the wound was then irrigated with sterile normal saline and packed with Ray-Velasquez gauze for 3 min to accomplish hemostasis. After the gauze was removed the deep fascia was closed with #1 Vicryl suture. The subcutaneous layer was closed with 2-0 Vicryl. The skin was closed with skin lai. Patient tolerated the procedure well. There were no complications. Neuro monitoring system was used to monitor patient's neurologic status throughout entire procedure. There was no disturbance of the neural monitoring signals throughout the case. Complications: none Post-operative Condition: stable Disposition: PACU Plan for aftercare: Admit to inpatient hospital
[2021-12-11] MEDS: hydrOXYzine 50 MG/ML INJ 25 MG IM (12:28)
[2021-12-11] MEDS: HYDROMORPHONE 2 MG INJ IV ×4 (12:35→12:55)
[2021-12-11] MEDS: OXYCODONE IR 5 MG TABLET PO ×2 (12:48→12:58)
--- NOTE | 2021-12-11 15:07 | PT.IIE ---
Current Diagnoses Spondylolisthesis, lumbar region (12/11/21) Spinal stenosis, lumbar region with neurogenic claudication (12/11/21) Surgery Performed Operation Date: 12/11/21 07:45 Actual Procedures p L4-5, L5-S1 TLIF w. posterior instrumentation-Robot - Roland Yates MD Surgical History (Last Updated 12/01/21 @ 09:58 by Sandy Medina RN) Anesthesia History of back surgery (~05/2020) Hx of laminectomy (11/09/18) Hx of shoulder surgery (~08/2019) Hx of tonsillectomy Hx of umbilical hernia repair (06/16/17) S/P excision of ganglion cyst Medical History (Last Updated 11/05/21 @ 13:23 by Arnoldo Akhtar DO) Arthritis Bilateral leg cramps Cervical somatic dysfunction Chronic back pain (~1970) Chronic neck pain Chronic pain syndrome Chronic right shoulder pain Compression fracture of L1 lumbar vertebra Compression fracture of L4 vertebra Cranial somatic dysfunction HTN (hypertension) Hyperlipidemia Left elbow pain Litigation Low back pain Lumbar region somatic dysfunction Migraine Migraines Numbness and tingling Pelvic somatic dysfunction Post-concussion headache Postconcussion syndrome Sacral region somatic dysfunction Sciatica Segmental and somatic dysfunction of abdomen and other regions Segmental and somatic dysfunction of rib cage Short leg syndrome, left, acquired Somatic dysfunction of lower extremity Spondylolisthesis at L4-L5 level Stress and adjustment reaction Subcutaneous mass of back Thoracic region somatic dysfunction Upper extremity somatic dysfunction Wound dehiscence, external operation Physical Therapy Inpatient Evaluation/Re-Eval M1 PT/OT-IP Prior Functional Status Start: 12/11/21 15:57 Freq: NEEDED Status: Active Protocol: Document 12/11/21 15:07 AB (Rec: 12/11/21 16:10 [email or web address]) Medical Review Prior Functional Status Medical History Reviewed Yes Communication able to make needs known Mobility and Gait pt stated that he is modified independent with all mobilities and ambulation without AD but wall/furniture cruises inside his trailer and uses his walking stick for outdoor mobility. pt stated that it will be tight if he uses a FWW inside his house. Social History Household Members none Living Arrangements Mobile home Number of Floors (Floors) One Floor Number of Stairs To Enter/Railing? 2 steps L rail ascending to enter Home Environment Standard Height Toilet Home Equipment Front Wheel Walker,Four Wheel Walker,Straight Cane Additional Social History Comment pt stated that he does not shower and only do sponge bathing M2 PT-IP Current Condition Start: 12/11/21 15:57 Freq: NEEDED Status: Active Protocol: Document 12/11/21 15:07 AB (Rec: 12/11/21 16:10 AB [email or web address]) Physical Therapy Current Condition Current Condition Evaluation Date 12/11/21 Treatment Diagnosis s/p L4-5, L5S1 TLIf; difficulty in walking Onset Date 12/11/21 M3 PT-IP Subjective Start: 12/11/21 15:57 Freq: NEEDED Status: Active Protocol: Document 12/11/21 15:07 AB (Rec: 12/11/21 16:10 AB [email or web address]) Subjective Physical Therapy Visit Type Type Initial Evaluation Visit Start Time 15:07 Visit Stop Time 15:55 Total Visit Minutes 48 Number of DIGITAL STRATEGY MANAGER Visits 0 Physical Therapy Visit Comments Patient Comments pt is agreeable to do PT; c/o increase LBP Therapy Pain Assessment Pain When Pain Assessed At Rest Pain Present Pain Present Pain Reported Location back Intensity 9 Scale Used Numeric (0 - 10) Pain Behaviors Guarding,Holding Area, Restlessness Pain Management Techniques Apply Cold,Distraction, Modification of Treatment,Re- positioning,Timing of Activity with Medications M4 PT-IP Mobility and Gait Start: 12/11/21 15:57 Freq: NEEDED Status: Active Protocol: Document 12/11/21 15:07 AB (Rec: 12/11/21 16:10 AB [email or web address]) PT-Bed Mobility Assessment Rolling Type of Rolling Log Rolling Level of Assist Minimal Assistance Supine to Sit Supine to Sit Minimal Assistance,Bedrails PT-Transfer Assessment Sit to and From Stand Sit to and from Stand Moderate Assistance,1 Person Assistance,Use of Upper Extremities Equipment Transfer Assistive Device Gait Belt,Front Wheeled Walker Orthotic/Prosthetic Devices or Brace: No Transfers Transfer Destination Chair Transfer Technique Stand Step Pivot Transfer Ability Level of Assist Moderate Assistance,1 Person Assistance,Use of Upper Extremities Comments Mobility Comments reviewed back precautions and log roll bed mobility with pt. pt is restless and c/o 9/10 LBP. completed log roll bed mobility min A and max cues. pt can be impulsive. able to sit on EOB SBA. completed sit to stand mod A and max cues. ambulated in room using FWW ~ 20 ft mod A and max cues. presents with very unsteady gait. pt focus on the catheter and stated that the catheter needs to come off. instructed pt to sit on EOB. again asked for the catheter to be off and informed that PT will inform the nurse. pt wants to be seated until catheter comes off. agreed to sit on the chair. completed sit to stand from EOB max A and max cues and step transfer to chair using FWW mod A and cues. positioned pt on the chair. ice pack provided. call light and table placed within reach. informed nurse regarding catheter and pt also requested pain meds. Gait Assessment Gait Gait Assistance Required: Moderate Assistance,Maximum Assistance Distance (Feet) 20 Able to Maintain Weight Bearing Status Yes During Gait Assistive Devices Assistive Device Gait Belt,Front Wheeled Walker Orthotic/Prosthetic Devices or Brace: No Gait Deviations General Gait Pattern Ataxic,Decreased Stride Length ,Decreased Feet Clearance Factors Limiting Gait Function Factors Limiting Gait Function Decreased Activity Tolerance, Decreased Strength,Difficulty Following Directions,Limited Range of Motion,Pain,Poor Balance,Poor Safety Awareness PT-Balance Assessment Sitting Balance and Reactions Static Sitting Balance Ability Good Dynamic Sitting Balance Ability Fair Standing Balance and Reactions Static Standing Balance Ability Fair Dynamic Standing Balance Ability Poor Device Used FWW M5 PT-IP Objective Assessments Start: 12/11/21 15:57 Freq: NEEDED Status: Active Protocol: Document 12/11/21 15:07 AB (Rec: 12/11/21 16:10 AB [email or web address]) Orientation Orientation/Cognition Level of Alertness Alert Orientation Name,Place,Situation Safety Awareness Decreased Safety Awareness Memory Description Short Term Impaired Gross Range of Motion Lower Extremity ROM Assessment Within Functional Limits Strength Lower Extremity Strength Hip 4-/5 Knee 4-/5 Sensation Assessment Sensation Gross Sensation WNL Muscle Tone Muscle Tone WNL Yes M6 PT-IP Treatment Start: 12/11/21 15:57 Freq: NEEDED Status: Active Protocol: Document 12/11/21 15:07 AB (Rec: 12/11/21 16:10 AB [email or web address]) Physical Therapy Treatment Education Education Provided Precautions,Weight Bearing Status,Post-Op Packet,Safety M7 PT-IP Assessment and Plan Start: 12/11/21 15:57 Freq: NEEDED Status: Active Protocol: Document 12/11/21 15:07 AB (Rec: 12/11/21 16:10 AB [email or web address]) PT Summary Assessment and Plan Potential Rehabilitation Potential Fair Status of Condition at Evaluation Evolving Summary Impairments Pain,ROM,Strength,Balance, Coordination,Sensation,Tone, Cognition,Bed Mobility, Transfers,Gait,Activity Tolerance Assessment Summary pt s/p TLIF and just had surgery this morning. pt lives alone and will not have assistance at home. pt stated that his friend will assist if needed but will not have a constant person to assist him. will assess progress for safe d/c plan. Goals Bed Mobility Goal Independent Transfer Goal Independent,Front Wheeled Walker Gait Goal Independent,Front Wheel Walker Gait Distance 200 Other Goals improve transfers/ ambulation using SPC/ without AD 200 ft mod I up/down 2 steps L rail/SPC mod I Days to Meet Goals 5 Frequency of Treatment Frequency Of Treatment Twice a Day Treatment Plan Physical Therapy Treatment Plan Bed Mobility Training,Transfer Training,Gait Training, Therapeutic Exercise,Balance Retraining,Post Op Education, Discharge Planning,Hot or Cold Pack,Neuromuscular Re-ed, Coordination Retraining,Manual Therapy Precautions Lumbar Precautions Log Roll,No Twisting,Limit Bending,Lifting Restriction of 10 lbs,Gait Belt above Incisional Area Recommendations To Nursing Amount of Assist Needed 1 Person Assist Discharge Recommendations PT Discharge Recommendations Home with Assistance,Home Health Transportation Needs at Discharge Private Vehicle
[2021-12-11] MEDS: OXYCODONE IR 5 MG TABLET 10 MG PO ×3 (16:03→23:11)
[2021-12-11] MEDS: SODIUM CHLORIDE 0.9% 1,000 ML 100 ML IV (16:05)
--- NOTE | 2021-12-11 16:42 | PC.NURSE ---
Pt arrived via PACU with nurse. Pt arousable though easily falls to sleep. Initially on 2ltrs O2 has been working with PT and is now up in chair watching TV. Began admission questions and assessments. After about ten minutes Pt stated they've asked me all this before, can we do this later. Pt medicated for pain. Presently resting in chair.
[2021-12-11] MEDS: SENNOSIDES 8.6 MG TABLET 17.2 MG PO (20:08)
[2021-12-11] MEDS: MELOXICAM 7.5 MG TABLET 15 MG PO (20:08)
[2021-12-11] MEDS: lisinopriL 20 MG TABLET PO (20:09)
[2021-12-11] MEDS: DOCUSATE 100 MG CAPSULE PO (20:12)
[2021-12-11] MEDS: ACETAMINOPHEN 325 MG TABLET 650 MG PO (23:11)
[2021-12-11] MEDS: SUMAtriptan 25 MG TABLET PO (23:15)
[2021-12-12] VITALS (9 sets, daily range): BP systolic 116–143; BP diastolic 62–82; PULSE 75–101; RESP 18–21; TEMP 37.1–37.8; O2SAT 93–96
[2021-12-12] MEDS: OXYCODONE IR 5 MG TABLET 10 MG PO ×6 (03:16→23:01)
[2021-12-12] MEDS: hydrOXYzine pamoate 25 MG CAPSULE PO ×3 (03:16→19:54)
[2021-12-12 05:22] LABS: Hematocrit 39.2 % (41-53); Hemoglobin 13.1 g/dL (13.5-17.5)
--- NOTE | 2021-12-12 07:47 | PM.PNPO.1 ---
Subjective Subjective Date Patient Seen: 12/12/21 Time Patient Seen: 07:47 Interval history: Patient is complaining of moderate to severe low back pain this morning. He worked with physical therapy yesterday which went well, but he is very concerned about pain management. He does not feel he is ready to go home today. Patient states he has mild bilateral lower extremity baseline numbness, relatively unchanged from surgery. Exam Vital Signs (past 8 hours): - 12/12/21 03:15 Temperature 99.4 F Pulse Rate 75 Respiratory Rate 19 Blood Pressure 140/74 Pulse Oximetry 96 Oxygen Delivery Method Nasal Cannula Oxygen Flow Rate 0 Narrative Exam Narrative: Pleasant 71-year-old male, resting comfortably in bed, no acute distress. Dressings demonstrate some bloody discharge on the right lateral incision, no surrounding erythema or induration. Bilateral lower extremity: Motor functions are grossly intact, sensation is grossly intact to light touch, calves are soft and nontender to palpation. Objective Labs Result Diagrams: 12/12/21 05:08 Labs: Laboratory Results - last 24 hr 12/12/21 05:08 Hgb 13.1 L Hct 39.2 L [facility] Medical History Arthritis Bilateral leg cramps Cervical somatic dysfunction Chronic back pain (~1970) Chronic neck pain Chronic pain syndrome Chronic right shoulder pain Compression fracture of L1 lumbar vertebra Compression fracture of L4 vertebra Cranial somatic dysfunction HTN (hypertension) Hyperlipidemia Left elbow pain Litigation Low back pain Lumbar region somatic dysfunction Migraine Migraines Numbness and tingling Pelvic somatic dysfunction Post-concussion headache Postconcussion syndrome Sacral region somatic dysfunction Sciatica Segmental and somatic dysfunction of abdomen and other regions Segmental and somatic dysfunction of rib cage Short leg syndrome, left, acquired Somatic dysfunction of lower extremity Spondylolisthesis at L4-L5 level Stress and adjustment reaction Subcutaneous mass of back Thoracic region somatic dysfunction Upper extremity somatic dysfunction Wound dehiscence, external operation Surgical History Anesthesia History of back surgery (~05/2020) Hx of laminectomy (11/09/18) Hx of shoulder surgery (~08/2019) Hx of tonsillectomy Hx of umbilical hernia repair (06/16/17) S/P excision of ganglion cyst Family History Father Hypertension Mother History of heart disease Social History marital status: unknown household members: none occupational status: previously employed Smoking Status: Former smoker alcohol intake: current substance use type: marijuana Assessment & Plan Post-op Postoperative Procedures: Procedures Operation Date: 12/11/21 07:45 Actual Procedure Side Surgeon p L4-5, L5-S1 TLIF w. posterior instrumentation-Robot Roland Yates MD Postoperative day: 1 Postoperative status: marginal pain control Postoperative status narrative: Stable status post L4-5, L5-S1 TLIF Postoperative plan narrative: -mobilize with PT/OT. Weightbearing as tolerated with front wheel walker. Avoid bending, lifting, twisting x6 weeks -continue with multimodal pain management. -DC home likely tomorrow, depending on pain management and PT/OT Quality VTE Deep Vein Thrombosis/Pulmonary Embolism Present on Admission: No
[2021-12-12] MEDS: DOCUSATE 100 MG CAPSULE PO ×2 (08:11→19:52)
[2021-12-12] MEDS: MAGNESIUM HYDROXIDE 30 ML UDC PO (08:11)
[2021-12-12] MEDS: MELOXICAM 7.5 MG TABLET 15 MG PO ×2 (08:11→19:51)
[2021-12-12] MEDS: ACETAMINOPHEN 325 MG TABLET 650 MG PO ×3 (08:12→19:57)
[2021-12-12] MEDS: lisinopriL 20 MG TABLET PO ×2 (08:12→19:48)
--- NOTE | 2021-12-12 09:07 | OT.IP.TRT ---
Current Diagnoses Spondylolisthesis, lumbar region (12/11/21) Spinal stenosis, lumbar region with neurogenic claudication (12/11/21) Surgery Performed Operation Date: 12/11/21 07:45 Actual Procedures p L4-5, L5-S1 TLIF w. posterior instrumentation-Robot - Roland Yates MD Occupational Therapy Treatment Note M2 OT-IP Current Condition Start: 12/12/21 11:23 Freq: Status: Active Protocol: Document 12/12/21 08:50 [facility] (Rec: 12/12/21 11:37 [facility] [id number]) Occupational Therapy Current Condition Current Condition Evaluation Date 12/12/21 Treatment Diagnosis S/P L4-5, L5-S1 TLIF Diagnosis Onset Date 12/11/21 Post Operative Precautions Lumbar Precautions Log Roll,No Twisting,Limit Bending,Lifting Restriction of 10 lbs,Gait Belt above Incisional Area M3 OT- IP Subjective and Pain Start: 12/12/21 11:23 Freq: Status: Active Protocol: Document 12/12/21 08:50 [facility] (Rec: 12/12/21 11:37 [facility] [id number]) OT- Subjective Occupational Therapy Visit Type Type Treatment Note Visit Start Time 08:50 Visit Stop Time 09:07 Total Visit Minutes 17 Occupational Therapy Visit Comments Patient Comments Pt not wanting to get up as in too much pain and states will be fine on his own to take care of himself. Pt agreed to listen to OT for safety and equipment suggestions. Patient/Caregiver Goals TO go home. OT Pain Assessment Pain When Pain Assessed At Rest Pain Present Pain Present Denied Pain M4 OT- IP ADL's Start: 12/12/21 11:23 Freq: Status: Active Protocol: Document 12/12/21 08:50 [facility] (Rec: 12/12/21 11:37 [facility] [id number]) OT [id number] Comments OT Self-Feeding Comments No issued noted. OT ADL-Grooming Comments OT Grooming Comments Not performed. OT ADL-Oral Care Comments Oral Care Comments Educated for pt to best spit into a cup or hinge at his hips to best follow his back precautions. OT ADL-Toileting Comments OT Toileting Comments suggested for pt to use a urinal as pt gets up often at night OT ADL-Bathing Comments OT Bathing Comments not performed, pt states usually goes to the gym to shower but will just sponge bathe for now M9 OT- IP Assessment and Plan Start: 12/12/21 11:23 Freq: Status: Active Protocol: Document 12/12/21 08:50 [facility] (Rec: 12/12/21 11:37 [facility] [id number]) OT Summary Assessment and Plan Summary OT Impairments Pain Assessment Summary Pt insistent on not getting up on two occasions going to see the pt. Able to talk to pt at least regarding OT needs via equipment and precautions/ techniques to follow for back precaution needs. Pt states he will be fine and states he will just figure it out. In pt still here Tuesday, to complete formal OT eval.
--- NOTE | 2021-12-12 10:42 | PT.IPTN ---
Current Diagnoses Spondylolisthesis, lumbar region (12/11/21) Spinal stenosis, lumbar region with neurogenic claudication (12/11/21) Surgery Performed Operation Date: 12/11/21 07:45 Actual Procedures p L4-5, L5-S1 TLIF w. posterior instrumentation-Robot - Roland Yates MD Physical Therapy Treatment Note M2 PT-IP Current Condition Start: 12/11/21 15:57 Freq: NEEDED Status: Active Protocol: Document 12/11/21 15:07 AB (Rec: 12/11/21 16:10 AB [email or web address]) Physical Therapy Current Condition Current Condition Evaluation Date 12/11/21 Treatment Diagnosis s/p L4-5, L5S1 TLIf; difficulty in walking Onset Date 12/11/21 M3 PT-IP Subjective Start: 12/11/21 15:57 Freq: NEEDED Status: Active Protocol: Document 12/12/21 10:22 [place] (Rec: 12/12/21 11:38 [place] [id number]) Subjective Physical Therapy Visit Type Type Treatment Note Visit Start Time 10:22 Visit Stop Time 10:42 Total Visit Minutes 20 Number of SPRING MACHINE OPERATOR Visits 1 Physical Therapy Visit Comments Patient Comments pt is agreeable to do PT; c/o increase LBP Therapy Pain Assessment Pain When Pain Assessed At Rest Pain Present Pain Present Pain Reported Location back Scale Used not quantified Pain Behaviors Facial Grimacing,Guarding, Restlessness Pain Management Techniques Apply Cold,Distraction,Re- positioning M4 PT-IP Mobility and Gait Start: 12/11/21 15:57 Freq: NEEDED Status: Active Protocol: Document 12/12/21 10:22 [place] (Rec: 12/12/21 11:38 [place] [id number]) PT-Bed Mobility Assessment Rolling Type of Rolling Log Rolling Level of Assist Standby Assistance Supine to Sit Supine to Sit Contact Guard Assistance,1 Person Assistance,Bedrails Sit to Supine Sit to Supine Contact Guard Assistance,1 Person Assistance Scooting Scooting to Edge of Bed Contact Guard Assistance PT-Transfer Assessment Sit to and From Stand Sit to and from Stand Contact Guard Assistance,1 Person Assistance,Use of Upper Extremities Equipment Transfer Assistive Device Gait Belt,Front Wheeled Walker Orthotic/Prosthetic Devices or Brace: No Transfers Transfer Destination Bed Transfer Technique Pt ambulated w/ FWW Transfer Ability Level of Assist Contact Guard Assistance,1 Person Assistance,Use of Upper Extremities Comments Mobility Comments Pt in bed upon arrival, able to recall 3/3 spinal precautions. Pt reluctant to participate due to pain, but agreeable. SBA for logroll and CGA for sup<>sit and scooting EOB. Pt able to sit<>stand w/ FWW CGA but required 2 attempts. He then ambulated ~ 60 ft in room w/ FWW CGA. Heavy WB through BUE due to pain and decreased stride and foot clearance but no LOB. Pt returned to bed CGA. Left in bed w/ ice, alarm on, and all needs in reach. Gait Assessment Gait Gait Assistance Required: Contact Guard Assist,1 Person Assist Distance (Feet) 60 Able to Maintain Weight Bearing Status Yes During Gait Assistive Devices Assistive Device Gait Belt,Front Wheeled Walker Orthotic/Prosthetic Devices or Brace: No Gait Deviations General Gait Pattern Decreased Stride Length, Decreased Feet Clearance Factors Limiting Gait Function Factors Limiting Gait Function Decreased Activity Tolerance, Decreased Strength,Limited Range of Motion,Pain,Poor Balance,Poor Safety Awareness Comments Gait Comments Please refer to mobility section for details. PT-Balance Assessment Sitting Balance and Reactions Static Sitting Balance Ability Good Dynamic Sitting Balance Ability Good Standing Balance and Reactions Static Standing Balance Ability Good Dynamic Standing Balance Ability Fair Device Used FWW M5 PT-IP Objective Assessments Start: 12/11/21 15:57 Freq: NEEDED Status: Active Protocol: Document 12/11/21 15:07 AB (Rec: 12/11/21 16:10 AB [email or web address]) Orientation Orientation/Cognition Level of Alertness Alert Orientation Name,Place,Situation Safety Awareness Decreased Safety Awareness Memory Description Short Term Impaired Gross Range of Motion Lower Extremity ROM Assessment Within Functional Limits Strength Lower Extremity Strength Hip 4-/5 Knee 4-/5 Sensation Assessment Sensation Gross Sensation WNL Muscle Tone Muscle Tone WNL Yes M6 PT-IP Treatment Start: 12/11/21 15:57 Freq: NEEDED Status: Active Protocol: Document 12/12/21 10:22 KS (Rec: 12/12/21 11:38 KS [id number]) Physical Therapy Treatment Exercises Exercises Ankle Pumps Education Education Provided Precautions,Weight Bearing Status,Safety M7 PT-IP Assessment and Plan Start: 12/11/21 15:57 Freq: NEEDED Status: Active Protocol: Document 12/12/21 10:22 KS (Rec: 12/12/21 11:38 KS [id number]) PT Summary Assessment and Plan Potential Rehabilitation Potential Good Summary Impairments Pain,ROM,Strength,Balance, Coordination,Sensation,Tone, Cognition,Bed Mobility, Transfers,Gait,Activity Tolerance Progress Towards Goals Slow Progress due to Pain Assessment Summary Pt slow to progress due to pain, but overall needing just CGA this AM for bed mobility and ambulation. Able to recall precautions and follow cues. 2 attempts for successful sit< >stand from bed. Pt offers that he has people to help him if he needs it and has a follow up appointment w/ OPPT in 5-6 weeks. Will need to increase ambulation distance and complete stair training prior to d/c, pt in too much pain to perform this AM. Goals Bed Mobility Goal Independent Transfer Goal Independent,Front Wheeled Walker Gait Goal Independent,Front Wheel Walker Gait Distance 200 Other Goals improve transfers/ ambulation using SPC/ without AD 200 ft mod I up/down 2 steps L rail/SPC mod I Days to Meet Goals 5 Frequency of Treatment Frequency Of Treatment Twice a Day Treatment Plan Physical Therapy Treatment Plan Bed Mobility Training,Transfer Training,Gait Training, Therapeutic Exercise,Balance Retraining,Post Op Education, Discharge Planning,Hot or Cold Pack,Neuromuscular Re-ed, Coordination Retraining,Manual Therapy Precautions Lumbar Precautions Log Roll,No Twisting,Limit Bending,Lifting Restriction of 10 lbs,Gait Belt above Incisional Area Recommendations To Nursing Amount of Assist Needed 1 Person Assist Discharge Recommendations PT Discharge Recommendations Home with Assistance,Home Health Transportation Needs at Discharge Private Vehicle
--- NOTE | 2021-12-12 11:12 | CM.DANOTE ---
Discharge Planning/Care Management CM Discharge Assessment Start: 12/12/21 11:09 Freq: Status: Active Protocol: Document 12/12/21 11:09 (Rec: 12/12/21 11:11 [id number]) Discharge Planning Assessment DPOA/Assigned Designee Name Violette Zaragoza RN/DCP Advance Directives? No History Provided By Patient,Medical Record Has Patient been admitted in last 30 No days? Prior Living Arrangements Mobile home Household Members none Comment Has friend who helps Comment Unknown. Patient was not wanting to answer many questions. Has a friend who will transport him home. Independent with ADL's Yes Is patient alert and oriented? Yes Caregiver for Another No Barriers to Discharge No Discharge Plan Home Referrals Initiated None needed Review Status In Process Next Review Type Continued Stay Review Pre-Anesthesia Assessment Start: 12/01/21 09:55 Freq: Status: Complete Protocol: Document 12/02/21 14:11 CAB (Rec: 12/01/21 10:22 [facility] [id number]) Pre-Anesthesia Assessment Preferred Name Idris Patient Information Reviewed Via Phone Assessment Assessment Completed With Patient Diagnostic Results BMP/CMP,CBC,EKG Comment Labs/ECG @ [facility] 11/06/21, COVID screen @ 12/09/21 Primary Care Provider Bill Machado Seen Specialist in Last 12 Months Yes Specialist Seen Emergency,Orthopedist,Other Comment Neurology Primary Language British Client Onboarding Analyst Required No Height 175.26 cm Weight 89.811 kg Body Mass Index (BMI) 29.2 Hearing Ability Normal Visual Assist Glasses Dentition Type Full- Upper Barriers to Learning Memory Comment Short term memory loss r/t recent concussion Hx Anesthesia Reactions No Hx Family Anesthesia Reaction No Hx Malignant Hyperthermia No Hx Blood Transfusions No Anesthesia Review Requested No Lead Pastor No alcohol intake current alcohol intake frequency a few times a week Smoking Status Former smoker how long ago did patient quit smoking Quit age 36 Substance Use Type marijuana Comment Advised not to smoke marijuana 24 hours prior Pain Present Pain Reported Musculoskeletal Symptoms Abnormal Gait,Back Pain, Difficulty Walking,Muscle Spasms,Radiating Pain into Limb History of Falling (Recent or History of Yes ) Patient is completely paralyzed or No completely immobile Mental Status Oriented to own ability Comment Walking stick occasionally Is patient on oxygen? No Does patient have SILVER/SOB No Hx Sleep Apnea No CPAP/BIPAP use not prescribed Currently Taking a Beta Roddy No Hx Chest Pain No Hx SOB No Hx Syncope or Dizziness No Anti-Coagulant Therapy No Has a Oracle Erp Architect No Cardiac Testing No Hx Pacemaker/ICD No Pacemaker Rep Required? No Diet Type At Home Regular dysphagia No Urinary Catheter Present No Hx Urinary Self Catheterization No Diabetes No Hx Drug Resistant Organism No Presence of External or Internal Medical No Devices Have you had any close contact with No someone diagnosed with COVID-19? Received a COVID vaccine? Yes Received all doses? Yes Marital Status Single Lives With none Prior Living Arrangements Mobile home Support System Friend(s) Does the Patient Have Assistance After No: Pt states he has friends Surgery he can call, but no one to stay overnight Patient Discharge Plan Description Return Home Comment Pt advised 2-3 days length of stay per surgeon Feels Safe in Current Environment Yes Been Physically Hurt or Threatened By a No Person in Current Environment Do you have thoughts of harming yourself None or others? Are you currently considering suicide? No Do you have a plan to hurt yourself or No Plan others? Do You Have Any Spiritual Beliefs That No May Affect Your HC Choices? Do You Have Any Cultural Practices That No May Affect Your HC Choices? Comment I believe in [place] Who Can We Speak to About Patient's Care Family, friends Identifying Code for Release of Patient Declines to issue Information Health Care Proxy/Next of Kin Marco Antonio Evans (good friend) Health Care Proxy Phone Number [phone] Emergency Contact Name Marco Antonio Evans (good friend) Emergency Contact Phone Number [phone] Advance Directives? No Power of Gas Examiner No PAC Instructions Durable medical equipment, Medications to take/avoid, Nasal antibiotic,No ETOH/ petroleum product on skin DOS, NPO,Post-op transportation,Pre -surgical wash,Sensory aids, Sturdy shoes/comfortable clothes,Do not bring valuables and remove jewelry
--- NOTE | 2021-12-12 11:12 | CM.DANOTE ---
Addendum entered by Stella Zaragoza R.N. 12/12/21 11:20: Noted PT Eval note which states pt may have some difficulty using walker in his trailer. PT recommends home with Home Health. Will inquire if patient will be amenable to, he is currently napping. Nursing reports he's been in quite a bit of pain. ANDRE Original Note: Initial Discharge Assessment Note: Case reviewed, met with patient in his room, introduced self and role. Payer: [facility] Medicare Advantage and Medicaid. PCP: Bill Machado 70 year old single male underwent Lumbar TLIF 12/11/[address] Yates. Patient c/o to ortho this morning of moderate to severe postop pain. Patient lives in a trailer locally, alone. He has a friend who can help him and transport him at discharge. Patient disliked giving information and stated that it's all already in the chart. Plan: Discharge when medically stable back to previous living situation with a friend helping him. ANDRE Discharge Planning/Care Management CM Discharge Assessment Start: 12/12/21 11:09 Freq: Status: Active Protocol: Document 12/12/21 11:09 (Rec: 12/12/21 11:11 [id number]) Discharge Planning Assessment DPOA/Assigned Designee Name Violette Zaragoza RN/DARCI Advance Directives? No History Provided By Patient,Medical Record Has Patient been admitted in last 30 No days? Prior Living Arrangements Mobile home Household Members none Comment Has friend who helps Comment Unknown. Patient was not wanting to answer many questions. Has a friend who will transport him home. Independent with ADL's Yes Is patient alert and oriented? Yes Caregiver for Another No Barriers to Discharge No Discharge Plan Home Referrals Initiated None needed Review Status In Process Next Review Type Continued Stay Review Pre-Anesthesia Assessment Start: 12/01/21 09:55 Freq: Status: Complete Protocol: Document 12/02/21 14:11 CAB (Rec: 12/01/21 10:22 [facility] [id number]) Pre-Anesthesia Assessment Preferred Name Idris Patient Information Reviewed Via Phone Assessment Assessment Completed With Patient Diagnostic Results BMP/CMP,CBC,EKG Comment Labs/ECG @ [facility] 11/06/21, COVID screen @ [facility] 12/09/21 Primary Care Provider Bill Machado Seen Specialist in Last 12 Months Yes Specialist Seen Emergency,Orthopedist,Other Comment Neurology Primary Language [place] Program Mgr Required No Height 175.26 cm Weight 89.811 kg Body Mass Index (BMI) 29.2 Hearing Ability Normal Visual Assist Glasses Dentition Type Full- Upper Barriers to Learning Memory Comment Short term memory loss r/t recent concussion Hx Anesthesia Reactions No Hx Family Anesthesia Reaction No Hx Malignant Hyperthermia No Hx Blood Transfusions No Anesthesia Review Requested No Machine Binding 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 No Does patient have SILVER/SOB No Hx Sleep Apnea No CPAP/BIPAP use not prescribed Currently Taking a Beta Roddy No Hx Chest Pain No Hx SOB No Hx Syncope or Dizziness No Anti-Coagulant Therapy No Has a Certified Hyperbaric Technician No Cardiac Testing No Hx Pacemaker/ICD No Pacemaker Rep Required? No Diet Type At Home Regular dysphagia No Urinary Catheter Present No Hx Urinary Self Catheterization No Diabetes No Hx Drug Resistant Organism No Presence of External or Internal Medical No Devices Have you had any close contact with No someone diagnosed with COVID-19? Received a COVID vaccine? Yes Received all doses? Yes Marital Status Single Lives With none Prior Living Arrangements Mobile home Support System Friend(s) Does the Patient Have Assistance After No: Pt states he has friends Surgery he can call, but no one to stay overnight Patient Discharge Plan Description Return Home Comment Pt advised 2-3 days length of stay per surgeon Feels Safe in Current Environment Yes Been Physically Hurt or Threatened By a No Person in Current Environment Do you have thoughts of harming yourself None or others? Are you currently considering suicide? No Do you have a plan to hurt yourself or No Plan others? Do You Have Any Spiritual Beliefs That No May Affect Your HC Choices? Do You Have Any Cultural Practices That No May Affect Your HC Choices? Comment I believe in [place] Who Can We Speak to About Patient's Care Family, friends Identifying Code for Release of Patient Declines to issue Information Health Care Proxy/Next of Kin Marco Antonio Evans (good friend) Health Care Proxy Phone Number [phone] Emergency Contact Name Marco Antonio Evans (good friend) Emergency Contact Phone Number [phone] Advance Directives? No Power of Certified Endoscopy Technician No PAC Instructions Durable medical equipment, Medications to take/avoid, Nasal antibiotic,No ETOH/ petroleum product on skin DOS, NPO,Post-op transportation,Pre -surgical wash,Sensory aids, Sturdy shoes/comfortable clothes,Do not bring valuables and remove jewelry
--- NOTE | 2021-12-12 12:35 | PT.IPTN ---
Current Diagnoses Spondylolisthesis, lumbar region (12/11/21) Spinal stenosis, lumbar region with neurogenic claudication (12/11/21) Surgery Performed Operation Date: 12/11/21 07:45 Actual Procedures p L4-5, L5-S1 TLIF w. posterior instrumentation-Robot - Roland Yates MD Physical Therapy Treatment Note M2 PT-IP Current Condition Start: 12/11/21 15:57 Freq: NEEDED Status: Active Protocol: Document 12/11/21 15:07 AB (Rec: 12/11/21 16:10 AB [id number]) Physical Therapy Current Condition Current Condition Evaluation Date 12/11/21 Treatment Diagnosis s/p L4-5, L5S1 TLIf; difficulty in walking Onset Date 12/11/21 M3 PT-IP Subjective Start: 12/11/21 15:57 Freq: NEEDED Status: Active Protocol: Document 12/12/21 12:09 KS (Rec: 12/12/21 13:01 KS [id number]) Subjective Physical Therapy Visit Type Type Treatment Note Visit Start Time 12:09 Visit Stop Time 12:35 Total Visit Minutes 26 Number of MILL HAND Visits 2 Physical Therapy Visit Comments Patient Comments pt is agreeable to do PT Therapy Pain Assessment Pain When Pain Assessed After Treatment Pain Present Pain Present Pain Reported Location back Intensity 7 Scale Used Numeric (0 - 10) Pain Behaviors Facial Grimacing,Guarding, Restlessness Pain Management Techniques Modification of Treatment,Re- positioning,Timing of Activity with Medications M4 PT-IP Mobility and Gait Start: 12/11/21 15:57 Freq: NEEDED Status: Active Protocol: Document 12/12/21 12:09 KS (Rec: 12/12/21 13:01 KS [id number]) PT-Bed Mobility Assessment Rolling Type of Rolling Log Rolling Level of Assist Standby Assistance Supine to Sit Supine to Sit Standby Assistance,1 Person Assistance,Bedrails Scooting Scooting to Edge of Bed Contact Guard Assistance PT-Transfer Assessment Sit to and From Stand Sit to and from Stand Contact Guard Assistance,1 Person Assistance,Use of Upper Extremities Equipment Transfer Assistive Device Gait Belt,Front Wheeled Walker Orthotic/Prosthetic Devices or Brace: No Transfers Transfer Destination Bed Transfer Technique Pt ambulated w/ FWW Transfer Ability Level of Assist Contact Guard Assistance,1 Person Assistance,Use of Upper Extremities Comments Mobility Comments Pt in bed upon arrival, pre- medicated and agreeable to ambulate in hallway. Pt able to perform bed mobility SBA. CGA for sit<>stand w/ FWW and cues for hand placement. Pt struggles intially with standing but was able to complete CGA. Pt states he does not want to perform stair training today, feels better to do it tomorrow however he did increase his ambulation distance to ~120 ft w/ FWW w/ 2x short standing rest breaks and cues for heel toe walking. Pt c/o pain, but most painful during transitions from sup<> sit<>stand. Pt returned to room for lunch and requested to sit EOB to eat. Left in room w/ all needs in reach. Gait Assessment Gait Gait Assistance Required: Contact Guard Assist,1 Person Assist Distance (Feet) 120 Able to Maintain Weight Bearing Status Yes During Gait Assistive Devices Assistive Device Gait Belt,Front Wheeled Walker Orthotic/Prosthetic Devices or Brace: No Gait Deviations General Gait Pattern Decreased Stride Length, Decreased Feet Clearance Factors Limiting Gait Function Factors Limiting Gait Function Decreased Activity Tolerance, Decreased Strength,Limited Range of Motion,Pain,Poor Balance,Poor Safety Awareness Comments Gait Comments Continues to rely heavily on BUE through FWW due to pain, but improved gait w/ cues for heel toe walking. Pt took 2x brief standing rest breaks during 120 ft. No LOB, somewhat impulsive w/ turns. Stair Climbing Assessment Comments Stair Climbing Comments Pt refused but agreeable to perform tomorrow. PT-Balance Assessment Sitting Balance and Reactions Static Sitting Balance Ability Good Dynamic Sitting Balance Ability Good Standing Balance and Reactions Static Standing Balance Ability Good Dynamic Standing Balance Ability Fair Device Used FWW M5 PT-IP Objective Assessments Start: 12/11/21 15:57 Freq: NEEDED Status: Active Protocol: Document 12/11/21 15:07 AB (Rec: 12/11/21 16:10 AB [id number]) Orientation Orientation/Cognition Level of Alertness Alert Orientation Name,Place,Situation Safety Awareness Decreased Safety Awareness Memory Description Short Term Impaired Gross Range of Motion Lower Extremity ROM Assessment Within Functional Limits Strength Lower Extremity Strength Hip 4-/5 Knee 4-/5 Sensation Assessment Sensation Gross Sensation WNL Muscle Tone Muscle Tone WNL Yes M6 PT-IP Treatment Start: 12/11/21 15:57 Freq: NEEDED Status: Active Protocol: Document 12/12/21 12:09 KS (Rec: 12/12/21 13:01 KS [id number]) Physical Therapy Treatment Education Education Provided Precautions,Weight Bearing Status,Safety M7 PT-IP Assessment and Plan Start: 12/11/21 15:57 Freq: NEEDED Status: Active Protocol: Document 12/12/21 12:09 NV (Rec: 12/12/21 13:01 NV [id number]) PT Summary Assessment and Plan Potential Rehabilitation Potential Good Summary Impairments Pain,ROM,Strength,Balance, Coordination,Sensation,Tone, Cognition,Bed Mobility, Transfers,Gait,Activity Tolerance Progress Towards Goals Slow Progress due to Pain Assessment Summary Pt able to progress gait distance this PM however does not feel ready to perform stair training. SBA for bed mobility, CGA and cues during sit<>Stand and ambulation w/ FWW. Ambulated 120 ft w/ 2x brief standing rest breaks. Confirms he has FWW at home and appt w/ OPPT in ~6 weeks. Reports he has friends to help as needed. Ultimately pt want sto return home, but feels he is still experiencing too much pain to go today. Goals Bed Mobility Goal Independent Transfer Goal Independent,Front Wheeled Walker Gait Goal Independent,Front Wheel Walker Gait Distance 200 Other Goals improve transfers/ ambulation using SPC/ without AD 200 ft mod I up/down 2 steps L rail/SPC mod I Days to Meet Goals 5 Frequency of Treatment Frequency Of Treatment Twice a Day Treatment Plan Physical Therapy Treatment Plan Bed Mobility Training,Transfer Training,Gait Training, Therapeutic Exercise,Balance Retraining,Post Op Education, Discharge Planning,Hot or Cold Pack,Neuromuscular Re-ed, Coordination Retraining,Manual Therapy Precautions Lumbar Precautions Log Roll,No Twisting,Limit Bending,Lifting Restriction of 10 lbs,Gait Belt above Incisional Area Recommendations To Nursing Amount of Assist Needed 1 Person Assist Discharge Recommendations PT Discharge Recommendations Home with Assistance,Home Health,Outpatient PT Transportation Needs at Discharge Private Vehicle
[2021-12-12] MEDS: SENNOSIDES 8.6 MG TABLET 17.2 MG PO (19:48)
[2021-12-12] MEDS: SUMAtriptan 25 MG TABLET PO (19:57)
[2021-12-13] VITALS (7 sets, daily range): BP systolic 127–150; BP diastolic 78–94; PULSE 81–94; RESP 16–19; TEMP 36.6–37.2; O2SAT 94–97
[2021-12-13] MEDS: OXYCODONE IR 5 MG TABLET 10 MG PO ×7 (03:21→23:34)
[2021-12-13] MEDS: hydrOXYzine pamoate 25 MG CAPSULE PO ×4 (03:21→23:34)
[2021-12-13] MEDS: ACETAMINOPHEN 325 MG TABLET 650 MG PO ×3 (06:17→23:33)
[2021-12-13] MEDS: MELOXICAM 7.5 MG TABLET 15 MG PO ×2 (08:45→20:18)
[2021-12-13] MEDS: lisinopriL 20 MG TABLET PO ×2 (08:45→20:14)
[2021-12-13] MEDS: DOCUSATE 100 MG CAPSULE PO ×2 (08:45→20:14)
--- NOTE | 2021-12-13 10:02 | PM.PN.1 ---
Exam Vital Signs (past 8 hours): - 12/13/21 06:19 12/13/21 07:45 12/13/21 08:45 Temperature 98.8 F 98 F Pulse Rate 86 84 84 Respiratory Rate 19 18 Blood Pressure 150/87 H 127/87 127/87 Pulse Oximetry 96 96 Oxygen Flow Rate 0 0 Oxygen Delivery Method Nasal Cannula Oxygen Flow Rate 0 Objective Labs Result Diagrams: 12/12/21 05:08 [facility] Medical History Arthritis Bilateral leg cramps Cervical somatic dysfunction Chronic back pain (~1970) Chronic neck pain Chronic pain syndrome Chronic right shoulder pain Compression fracture of L1 lumbar vertebra Compression fracture of L4 vertebra Cranial somatic dysfunction HTN (hypertension) Hyperlipidemia Left elbow pain Litigation Low back pain Lumbar region somatic dysfunction Migraine Migraines Numbness and tingling Pelvic somatic dysfunction Post-concussion headache Postconcussion syndrome Sacral region somatic dysfunction Sciatica Segmental and somatic dysfunction of abdomen and other regions Segmental and somatic dysfunction of rib cage Short leg syndrome, left, acquired Somatic dysfunction of lower extremity Spondylolisthesis at L4-L5 level Stress and adjustment reaction Subcutaneous mass of back Thoracic region somatic dysfunction Upper extremity somatic dysfunction Wound dehiscence, external operation Surgical History Anesthesia History of back surgery (~05/2020) Hx of laminectomy (11/09/18) Hx of shoulder surgery (~08/2019) Hx of tonsillectomy Hx of umbilical hernia repair (06/16/17) S/P excision of ganglion cyst Family History Father Hypertension Mother History of heart disease Social History marital status: unknown household members: none occupational status: previously employed Smoking Status: Former smoker alcohol intake: current substance use type: marijuana Assessment & Plan Assessment & Plan narrative: POD#2 s/p L4-S1 TLIF. Patient has post op pain and only had limited mobilization with PT. Patient lives alone and has 3 steps to go in and out of the house, has not down stairs with PT. On exam, patient is neurovascularly intact with clean and intact dressing. I discussed my findings with patient. He will benefit from additional PT today and tomorrow along with pain management. Will plan for d/c tomorrow with possible home health. Continue PT today and train for stairs in preparation for possible d/c tomorrow to home. Time Spent With Patient Critical Care time: I spent a total of [] minutes of critical care time on this patient's care today; this time is exclusive of procedural time. Quality VTE Deep Vein Thrombosis/Pulmonary Embolism Present on Admission: No
--- NOTE | 2021-12-13 10:44 | CM.DPC ---
DCP Cont: DCP spoke with pt this morning to discuss home health services. Pt declines home health at this time and states, I do not need it. I can call my friend if I need him. Pt also stated that he has outpatient PT scheduled in six weeks. DCP verbalized to please call if changes his mind or if anything changes. DCP to reconnect with the team tomorrow prior to his discharge to verify this is still the plan. Berenice Cantrell RN/ALYSEP
--- NOTE | 2021-12-13 13:45 | PT.IPTN ---
Current Diagnoses Spondylolisthesis, lumbar region (12/11/21) Spinal stenosis, lumbar region with neurogenic claudication (12/11/21) Surgery Performed Operation Date: 12/11/21 07:45 Actual Procedures p L4-5, L5-S1 TLIF w. posterior instrumentation-Robot - Roland Yates MD Physical Therapy Treatment Note M2 PT-IP Current Condition Start: 12/11/21 15:57 Freq: NEEDED Status: Active Protocol: Document 12/11/21 15:07 AB (Rec: 12/11/21 16:10 AB [id number]) Physical Therapy Current Condition Current Condition Evaluation Date 12/11/21 Treatment Diagnosis s/p L4-5, L5S1 TLIf; difficulty in walking Onset Date 12/11/21 M3 PT-IP Subjective Start: 12/11/21 15:57 Freq: NEEDED Status: Active Protocol: Document 12/13/21 13:45 AW (Rec: 12/13/21 14:14 AW [id number]) Subjective Physical Therapy Visit Type Type Treatment Note Visit Start Time 13:29 Visit Stop Time 13:45 Total Visit Minutes 16 Number of COMM[employer]ITY [employer] WORKER Visits 0 Physical Therapy Visit Comments Patient Comments pt is agreeable to do PT Therapy Pain Assessment Pain When Pain Assessed During Mobility Pain Present Pain Present Pain Reported Location back Scale Used not quantified Pain Behaviors Facial Grimacing,Guarding, Restlessness Pain Management Techniques Modification of Treatment,Re- positioning,Timing of Activity with Medications M4 PT-IP Mobility and Gait Start: 12/11/21 15:57 Freq: NEEDED Status: Active Protocol: Document 12/13/21 13:45 AW (Rec: 12/13/21 14:14 AW [id number]) PT-Bed Mobility Assessment Rolling Type of Rolling Log Rolling Level of Assist Standby Assistance Supine to Sit Supine to Sit Standby Assistance,1 Person Assistance,Bedrails Sit to Supine Sit to Supine Standby Assistance PT-Transfer Assessment Sit to and From Stand Sit to and from Stand Standby Assistance,Use of Upper Extremities Equipment Transfer Assistive Device Gait Belt,Front Wheeled Walker Orthotic/Prosthetic Devices or Brace: No Transfers Transfer Destination Bed Transfer Technique Pt ambulated w/ FWW Transfer Ability Level of Assist Standby Assistance,Use of Upper Extremities Comments Mobility Comments Pt was in bed as PT arrived. He sat up with fair log roll technique and stood SBA with increased time and positive Helm's sign. He needed cues to avoid twisting at the trunk to contact the FWW. He used FWW to ambulate in the halls a total of 175 feet SBA with 3 brief standing rest breaks. On return to the room, pt returned to supine with min cues for log roll. Pt was left with call light in reach. Gait Assessment Gait Gait Assistance Required: Standby Assistance,1 Person Assist Distance (Feet) 175 Able to Maintain Weight Bearing Status Yes During Gait Assistive Devices Assistive Device Gait Belt,Front Wheeled Walker Orthotic/Prosthetic Devices or Brace: No Gait Deviations General Gait Pattern Decreased Stride Length, Decreased Feet Clearance Factors Limiting Gait Function Factors Limiting Gait Function Decreased Activity Tolerance, Decreased Strength,Limited Range of Motion,Pain,Poor Balance,Poor Safety Awareness Comments Gait Comments Hip extension and upright posture improved with cues. Pt does tend to rely heavily on BUE through FWW due to pain. Stair Climbing Assessment Evaluation Level of Assist On Stairs Contact Guard Assistance Devices Stair Climbing Assistive Devices Left Railing,Right Railing Technique/Endurance Stair Climbing Direction Ascend and Descend Stair Climbing Technique Step Over Step Number of Steps Climbed 10 Stair Climbing Set # Repetitions (reps) 1 Comments Stair Climbing Comments Pt was motivated to work on stairs but stated he was not yet ready to attempt with single rail. He used B rails with SBA and occasional CGA. PT-Balance Assessment Sitting Balance and Reactions Static Sitting Balance Ability Good Dynamic Sitting Balance Ability Good Standing Balance and Reactions Static Standing Balance Ability Good Dynamic Standing Balance Ability Fair Device Used FWW M5 PT-IP Objective Assessments Start: 12/11/21 15:57 Freq: NEEDED Status: Active Protocol: Document 12/11/21 15:07 AB (Rec: 12/11/21 16:10 AB [id number]) Orientation Orientation/Cognition Level of Alertness Alert Orientation Name,Place,Situation Safety Awareness Decreased Safety Awareness Memory Description Short Term Impaired Gross Range of Motion Lower Extremity ROM Assessment Within Functional Limits Strength Lower Extremity Strength Hip 4-/5 Knee 4-/5 Sensation Assessment Sensation Gross Sensation WNL Muscle Tone Muscle Tone WNL Yes M6 PT-IP Treatment Start: 12/11/21 15:57 Freq: NEEDED Status: Active Protocol: Document 12/13/21 13:45 AW (Rec: 12/13/21 14:14 AW [id number]) Physical Therapy Treatment Education Education Provided Precautions,Weight Bearing Status,Safety Other Treatments Other Treatment Performed Emphasis on hip hinge for sit <> stand for improved spinal neutral . M7 PT-IP Assessment and Plan Start: 12/11/21 15:57 Freq: NEEDED Status: Active Protocol: Document 12/13/21 13:45 AW (Rec: 12/13/21 14:14 AW [id number]) PT Summary Assessment and Plan Potential Rehabilitation Potential Good Summary Impairments Pain,ROM,Strength,Balance, Coordination,Sensation,Tone, Cognition,Bed Mobility, Transfers,Gait,Activity Tolerance Progress Towards Goals Progressing Toward Goals,Slow Progress due to Pain Assessment Summary Pt progressed his gait distance again and initiated stair training using bilateral rails. Pt lives in an and will need to be able to manage stairs with unilateral rail to return home. Goals Bed Mobility Goal Independent Transfer Goal Independent,Front Wheeled Walker Gait Goal Independent,Front Wheel Walker Gait Distance 200 Other Goals improve transfers/ ambulation using SPC/ without AD 200 ft mod I up/down 2 steps L rail/SPC mod I Days to Meet Goals 5 Frequency of Treatment Frequency Of Treatment Twice a Day Treatment Plan Physical Therapy Treatment Plan Bed Mobility Training,Transfer Training,Gait Training, Therapeutic Exercise,Balance Retraining,Post Op Education, Discharge Planning,Hot or Cold Pack,Neuromuscular Re-ed, Coordination Retraining,Manual Therapy Other Recommendations and Next Treatment stairs with unilateral rail; Focus assess gait with SPC if safe Precautions Lumbar Precautions Log Roll,No Twisting,Limit Bending,Lifting Restriction of 10 lbs,Gait Belt above Incisional Area Recommendations To Nursing Amount of Assist Needed 1 Person Assist Discharge Recommendations PT Discharge Recommendations Home with Assistance,Home Health,Outpatient PT Transportation Needs at Discharge Private Vehicle
[2021-12-13] MEDS: SENNOSIDES 8.6 MG TABLET 17.2 MG PO (20:18)
[2021-12-13] MEDS: SUMAtriptan 25 MG TABLET PO (20:37)
[2021-12-14 04:00] VITALS: BP 159/78; PULSE 65; RESP 16; TEMP 36.4; O2SAT 94
[2021-12-14] MEDS: OXYCODONE IR 5 MG TABLET 10 MG PO ×5 (05:10→20:43)
[2021-12-14] MEDS: hydrOXYzine pamoate 25 MG CAPSULE PO ×3 (05:11→20:43)
--- NOTE | 2021-12-14 07:26 | PM.DS.1 ---
History of Present Illness History of Present Illness Date Patient Seen: 12/14/21 Time Patient Seen: 07:26 Chief complaint: Back pain Narrative: Patient continues to have significant back pain. Denies fever. No nausea or vomiting. Discharge Providers Provider Date of admission: 12/11/21 06:29 Discharge Date: 12/14/21 Primary care physician: Bill Machado MD Consults: 12/11/21 13:39 Consult to Occupational Therapy Evaluate & Treat Comment: Physician Instructions: Evaluate and treat Consult to Physical Therapy Evaluate & Treat Comment: Physician Instructions: Evaluate and Treat Discharge provider: Arnoldo Hartman PA-C Summary Hospital Course Discharge Diagnosis: 1. L4-5, L5-S1 spondylolisthesis 2. L4-5, L5-S1 spinal stenosis Chronic pain syndrome Hospital Course: 1. L4-5, L5-S1 Postero-lateral and posterior interbody fusion 2. L4-5, L5-S1 interbody cage placement. 3. L4-5, L5-S1 decompressive laminectomy with bilateral facetecomies 4. L4-5, L5-S1 Posterior segmental instrumentation 5. [place] of bone marrow from iliac crest 6. Utilization of microsurgical technique and operating microscope 7. Utilization of robotic navigation Same procedure as scheduled: Yes Indications: Patient has been having chronic back pain and worsening lumbar radiculopathy. Patient failed multiple conservative management with worsening pain weakness and numbness in his lower extremity.? Patient has been having difficulty performing activity of daily living.? After discussing risks benefits of treatment options, patient elected proceed with surgery. Surgeon: Roland Yates Shovel Loader Operator: Alena Cabral Click Yes if Unassisted: No Anesthesia Type: General Operative Notes Closure Type: primary Specimen(s): none sent Prosthetic devices, grafts, tissues, transplants, or devices: Globus CREO MIS screws, Rise cages Applied: catheter Estimated Blood Loss (mL): 100 Blood products transfused: none Patient admitted to the hospital and consented for the above-mentioned procedure. Patient taken operating room on December 11, 2021. Patient underwent L4-L5, L5-S1 posterolateral and posterior interbody fusion. Patient has sleep been slow to progress due to pain. Limited mobilization with physical therapy secondary to pain. Patient lives alone and has 3 steps to go in and out of his house. Patient has not yet performed stairs with physical therapy. Patient will continue to mobilize with physical therapy. He will be discharged home when able to perform 3 steps. Patient would benefit from home health physical therapy. Status at Discharge Cognitive/behavioral status at discharge: at baseline, oriented Functional status at discharge: uses cane/walker Overall status at discharge: patient is progressing back to baseline Exam Vital Signs (past 8 hours): - 12/14/21 04:00 Temperature 97.6 F Pulse Rate 65 Respiratory Rate 16 Blood Pressure 159/78 H Pulse Oximetry 94 Oxygen Delivery Method Room Air Oxygen Flow Rate 0 Narrative Exam Narrative: 71-year-old male resting comfortably in bed in no apparent distress. Motor functions intact bilateral lower extremities. Scant drainage on the dressing. Const General: cooperative and comfortable Orientation: alert Resp Effort & Inspection: normal respiratory effort and able to speak in complete sentences Objective Labs Result Diagrams: 12/12/21 05:08 [facility] Medical History Arthritis Bilateral leg cramps Cervical somatic dysfunction Chronic back pain (~1970) Chronic neck pain Chronic pain syndrome Chronic right shoulder pain Compression fracture of L1 lumbar vertebra Compression fracture of L4 vertebra Cranial somatic dysfunction HTN (hypertension) Hyperlipidemia Left elbow pain Litigation Low back pain Lumbar region somatic dysfunction Migraine Migraines Numbness and tingling Pelvic somatic dysfunction Post-concussion headache Postconcussion syndrome Sacral region somatic dysfunction Sciatica Segmental and somatic dysfunction of abdomen and other regions Segmental and somatic dysfunction of rib cage Short leg syndrome, left, acquired Somatic dysfunction of lower extremity Spondylolisthesis at L4-L5 level Stress and adjustment reaction Subcutaneous mass of back Thoracic region somatic dysfunction Upper extremity somatic dysfunction Wound dehiscence, external operation Surgical History Anesthesia History of back surgery (~05/2020) Hx of laminectomy (11/09/18) Hx of shoulder surgery (~08/2019) Hx of tonsillectomy Hx of umbilical hernia repair (06/16/17) S/P excision of ganglion cyst Family History Father Hypertension Mother History of heart disease Social History marital status: unknown household members: none occupational status: previously employed Smoking Status: Former smoker alcohol intake: current substance use type: marijuana Discharge Assessment & Plan Assessment and Plan Assessment: Stable status post lumbar fusion Plan of Treatment: Mobilize with physical therapy, work on steps and may be discharged home when safe for home environment Multimodal pain management Discharge home today with home health services, needs to perform 3 steps prior to discharge. Discharge Plan Discharge Plan Patient Disposition: Home Health Service Transfer to: [facility] Provider Discharge Comment: Discharge home after physical therapy if safe for home environment Discharge orders & Medications Prescriptions: New acetaminophen 325 mg Tablet 650 mg PO Q6HR PRN (Reason: Pain, Mild (1-3)) Qty: 60 0RF docusate sodium 100 mg Capsule 100 mg PO BID Qty: 20 0RF oxycodone 5 mg Tablet 10 mg PO Q3HR PRN (Reason: Pain, Severe (7-10)) Qty: 60 0RF hydroxyzine pamoate 25 mg Capsule 25 mg PO Q4HR PRN (Reason: Nausea And Vomiting) Qty: 60 0RF Continued sumatriptan succinate 25 mg tablet 25 - 50 mg PO PRN PRN (Reason: Migraine Headache) lisinopril 20 mg tablet 20 mg PO BID Discontinued oxycodone-acetaminophen [Percocet] 7.5-325 mg tablet 1 tab PO TID PRN (Reason: pain) Qty: 12 0RF Rx Instructions: 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 -Okay to shower. Keep wound out of direct water stream. Can use PressNSeal plastic wrap to protect from shower stream. No soaking or submerging until all the scabs fall off (approximately 6 weeks). -Please call the office if dressing becomes wet, soiled, or saturated. Activities: -Limit bending, lifting, twisting x6 weeks. No deep bending (more than 90 degrees) or twisting at the waist. No lifting > 20 pounds. -Walk frequently. -Weight-bearing as tolerated. Use front wheeled walker, and progress to cane when safe. -Continue with home exercises as directed by your physical therapist. -Ice your incision as needed for pain/inflammation/swelling. Protect your skin with a folded pillowcase. -Incentive Spirometer (breathing device from hospital): 5-10xs every hour while awake for the first 1-2 weeks. Follow-up: -Follow-up with your surgeon or PA in the office in 10-14 days after surgery. -Follow-up with your surgeon 6 weeks postoperatively. Call the office if you have chest pain, shortness of breath, significant swelling that will not resolve with elevating, fever over 101?, significantly worsening pain, or are concerned you might need to go to the Emergency Room. [facility]: [phone] Skin/Wound/Dressing Care Report to your healthcare provider any signs of infection, such as:: chills, fever, night sweats, unusual drainage and unusual redness Visit Report/Discharge Packet Instructions: DI for Prescription Opioid Use, DI for Transforaminal Lumbar Interbody Fusion Stand Alone Forms: Surgery Discharge Discharge Data Primary Care Provider: Bill Machado VTE Deep Vein Thrombosis/Pulmonary Embolism Present on Admission: No
[2021-12-14 08:18] VITALS: BP 120/81; PULSE 84; RESP 22; TEMP 36.9; O2SAT 97
[2021-12-14] MEDS: MELOXICAM 7.5 MG TABLET 15 MG PO ×2 (08:33→20:43)
[2021-12-14 08:34] VITALS: BP 120/81; PULSE 84
[2021-12-14] MEDS: ACETAMINOPHEN 325 MG TABLET 650 MG PO ×2 (08:34→16:28)
[2021-12-14] MEDS: lisinopriL 20 MG TABLET PO ×2 (08:34→20:44)
[2021-12-14] MEDS: DOCUSATE 100 MG CAPSULE PO ×2 (08:34→20:42)
--- NOTE | 2021-12-14 10:13 | OT.IP.EVAL ---
Current Diagnoses Spondylolisthesis, lumbar region (12/11/21) Spinal stenosis, lumbar region with neurogenic claudication (12/11/21) Surgery Performed Operation Date: 12/11/21 07:45 Actual Procedures p L4-5, L5-S1 TLIF w. posterior instrumentation-Robot - Roland Yates MD Past Medical History (Last Reviewed 12/14/21 @ 07:28 by Arnoldo Hartman PA-C) Arthritis Bilateral leg cramps Cervical somatic dysfunction Chronic back pain (~1970) Chronic neck pain Chronic pain syndrome Chronic right shoulder pain Compression fracture of L1 lumbar vertebra Compression fracture of L4 vertebra Cranial somatic dysfunction HTN (hypertension) Hyperlipidemia Left elbow pain Litigation Low back pain Lumbar region somatic dysfunction Migraine Migraines Numbness and tingling Pelvic somatic dysfunction Post-concussion headache Postconcussion syndrome Sacral region somatic dysfunction Sciatica Segmental and somatic dysfunction of abdomen and other regions Segmental and somatic dysfunction of rib cage Short leg syndrome, left, acquired Somatic dysfunction of lower extremity Spondylolisthesis at L4-L5 level Stress and adjustment reaction Subcutaneous mass of back Thoracic region somatic dysfunction Upper extremity somatic dysfunction Wound dehiscence, external operation Surgical History (Last Reviewed 12/14/21 @ 07:28 by Arnoldo Hartman PA-C) Anesthesia History of back surgery (~05/2020) Hx of laminectomy (11/09/18) Hx of shoulder surgery (~08/2019) Hx of tonsillectomy Hx of umbilical hernia repair (06/16/17) S/P excision of ganglion cyst Occupational Therapy Inpatient Evaluation/Re-Eval M1 PT/OT-IP Prior Functional Status Start: 12/11/21 15:57 Freq: NEEDED Status: Active Protocol: Document 12/14/21 10:14 CGR (Rec: 12/14/21 10:29 CGR [id number]) Medical Review Prior Functional Status Medical History Reviewed Yes Communication able to make needs known Mobility and Gait pt stated that he is modified independent with all mobilities and ambulation without AD but wall/furniture cruises inside his trailer and uses his walking stick for outdoor mobility. pt stated that it will be tight if he uses a FWW inside his house. Activities of Daily Living and IADL's Pt states just showers at the gym , but prior able to do his ADl and IADL needs. Prior Functional Level (Other details) Pt states has history of concussion. Social History Household Members none Living Arrangements Mobile home Number of Floors (Floors) One Floor Number of Stairs To Enter/Railing? 2 steps L rail ascending to enter Home Environment Standard Height Toilet Home Equipment Front Wheel Walker,Four Wheel Walker,Straight Cane Additional Social History Comment pt stated that he does not shower and only do sponge bathing M2 OT-IP Current Condition Start: 12/12/21 11:23 Freq: Status: Active Protocol: Document 12/14/21 10:14 CGR (Rec: 12/14/21 10:29 CGR [id number]) Occupational Therapy Current Condition Current Condition Evaluation Date 12/14/21 Treatment Diagnosis S/P L4-5, L5-S1 TLIF Diagnosis Onset Date 12/11/21 Post Operative Precautions Lumbar Precautions Log Roll,No Twisting,Limit Bending,Lifting Restriction of 10 lbs,Gait Belt above Incisional Area M3 OT- IP Subjective and Pain Start: 12/12/21 11:23 Freq: Status: Active Protocol: Document 12/14/21 10:14 CGR (Rec: 12/14/21 10:29 CGR [id number]) OT- Subjective Occupational Therapy Visit Type Type Initial Evaluation Visit Start Time 09:42 Visit Stop Time 10:13 Total Visit Minutes 31 Occupational Therapy Visit Comments Patient Comments I don't think I am ready to go home today. OT Pain Assessment Pain When Pain Assessed At Rest Pain Present Pain Present Pain Reported Location back Intensity 8 Scale Used Numeric (0 - 10) Management Techniques Distraction,Modification of Treatment,Re-positioning, Timing of Activity with Medications M4 OT- IP ADL's Start: 12/12/21 11:23 Freq: Status: Active Protocol: Document 12/14/21 10:14 CGR (Rec: 12/14/21 10:29 CGR [id number]) OT MGU-Iqjv-Xomoids Comments OT Self-Feeding Comments not meal time OT ADL-Grooming Comments OT Grooming Comments pt declined, states he performed this AM OT ADL-Oral Care Comments Oral Care Comments pt declined, states he performed this AM OT ADL-Dressing General Eval Lower Body Dressing Ability Standby Assistance Areas Needing Assistance Pants/Shorts Assistive Devices Dressing Assistive Devices Tandem Mill Roller Comments OT Dressing Comments Pt educated on LB dressing then demonstrated his understanding with veneer redrier. OT ADL-Toileting General Evaluation Toileting Ability Independent Comments OT Toileting Comments pt simulated seated on toielt OT ADL-Bathing Comments OT Bathing Comments not performed. pt states that he typically showers at the gym or does a sponge bath in his trailer. M5 OT- IP IADL's Start: 12/12/21 11:23 Freq: Status: Active Protocol: Document 12/14/21 10:14 CGR (Rec: 12/14/21 10:29 CGR [id number]) OT-Instrumental Activities of Daily Living Deficits IADL Deficits Identified No Deficits Home Safety Awareness Awareness of Need for Assistance at Home Good Awareness Ability to Problem Solve Emergency Able to Problem Solve Situations Medication Management Medication Management No Deficits Identified Money Management Money Management No Deficits Identified Meal Preparation Meal Preparation Comments Conserns regarding pt's ability to perform upon returning home Oil Well Driller Oil Well Driller Comments Conserns regarding pt's ability to perform upon returning home Driving Driving Comments Pt states he has a friend that will help with driving. M6 OT- IP Functional Cognition Start: 12/12/21 11:23 Freq: Status: Active Protocol: Document 12/14/21 10:14 CGR (Rec: 12/14/21 10:29 CGR [id number]) Cognitive Factors Limiting Selfcare Function Cognitive Ability Level of Alertness Alert Patient Orientation Name,Age,Birthday,Month,Date, Year,Day of Week,Place, Situation Attention Span Ability Capable of Focused Attention, Capable of Sustained Attention OT- Vision and Hearing OT- Hearing Assessment OT- Hearing Assessment WFL OT- Vision Assessment Visual Acuity Glasses For Reading Visual Attentiveness Impaired Occular Pursuits WFL Vision Assessment Comments Pt needs extra time for his visual attentiveness M7 OT- IP Mobility and Balance Start: 12/12/21 11:23 Freq: Status: Active Protocol: Document 12/14/21 10:14 CGR (Rec: 12/14/21 10:29 CGR [id number]) OT- Bed Mobility Assessment Rolling Type of Rolling Log Rolling,Roll to Left Level of Assistance Standby Assistance,Bedrails Supine to Sit Supine to Sit Assist Standby Assistance Sit to Supine Sit to Supine Assist Independent Scooting Scooting to Edge of Bed Standby Assistance OT-Transfer Assessment Sit to and From Stand Sit to and from Stand Contact Guard Assistance Transfers Transfer Ability Standby Assistance,Contact Guard Assistance Technique Transfer Destination Bed,Chair,Toilet Transfer Technique Stand Step Pivot Devices Transfer Assistive Devices Gait Belt,Front Wheeled Walker Comments Mobility Comments Pt was able to ambulate around the room. OT- Gait Assessment Gait Gait Assistance Required: Standby Assistance Assistive Devices Assistive Device Gait Belt OT- Balance Assessment Sitting Balance and Reactions Static Sitting Balance Ability Good Dynamic Sitting Balance Ability Good M8 OT- IP Objective Assessments Start: 12/12/21 11:23 Freq: Status: Active Protocol: Document 12/14/21 10:14 CGR (Rec: 12/14/21 10:29 CGR [id number]) OT Gross Range of Motion Upper Extremity Range of Motion Assessment Within Functional Limits OT Strength Upper Extremity Strength Assessment Within Functional Limits Comments Strength Comments shlds not tested d/t pain, 4+/ 5 to arms and hands OT- Coordination Assessment Upper Extremity Finger to Nose Test Within Functional Limits Finger Tapping Test Within Functional Limits OT-Muscle Tone Assessment Muscle Tone WNL Yes OT Sensation Assessment Edema Edema Absent M9 OT- IP Assessment and Plan Start: 12/12/21 11:23 Freq: Status: Active Protocol: Document 12/14/21 10:14 CGR (Rec: 12/14/21 10:29 CGR [id number]) OT Summary Assessment and Plan Potential Rehabilitation Potential Good Analytic Complexity at Evaluation Moderate Summary OT Impairments Pain,Balance,Functional Mobility,Dressing,Toileting, Bathing,Toilet Transfers, Shower Transfers,Activity Tolerance Progress Towards Goals Progressing Toward Goals Assessment Summary Pt presents as a moderate complexity evaluation s/p admit for L4-L5 & L5-S TLIF. Pt reports 8/10 pain with being freshly medicated. Pt lives alone in a 28 foot RV and has concerns about his ability to care for himself at home but states I don't think there is any chance that I will fall at home. Pt participates well with therapy today and is likely to be safe for discharge home. Pt has been educated on LB dressing and other home safety . Pt states his biggest concern is getting in and out of his trailer. Recommend d/c home with assist for getting in and out of the trailer and assist with meals. Goals Dressing Goal Independent,Tandem Mill Roller,Sock Aid Toileting Goal Independent Bathing Goal Independent Toilet Transfer Goal Independent Shower Transfer Goal Independent Days to Meet Goals 5 Frequency of Treatment Frequency Of Treatment Once a Day Treatment Plan OT Treatment Plan ADL Training,Functional Mobility,Patient/Family Education,Discharge Planning Other Treatment Recommendations and Next shower Treatment Focus Discharge Recommendations OT Discharge Recommendations Home with Assistance Home Equipment Needs veneer redrier, sock aid Transportation Needs at Discharge Private Vehicle
--- NOTE | 2021-12-14 10:53 | PT.IPTN ---
Current Diagnoses Spondylolisthesis, lumbar region (12/11/21) Spinal stenosis, lumbar region with neurogenic claudication (12/11/21) Surgery Performed Operation Date: 12/11/21 07:45 Actual Procedures p L4-5, L5-S1 TLIF w. posterior instrumentation-Robot - Roland Yates MD Physical Therapy Treatment Note M2 PT-IP Current Condition Start: 12/11/21 15:57 Freq: NEEDED Status: Active Protocol: Document 12/14/21 10:18 SP (Rec: 12/14/21 13:13 SP [id number]) Physical Therapy Current Condition Current Condition Evaluation Date 12/11/21 Treatment Diagnosis s/p L4-5, L5S1 TLIf; difficulty in walking Onset Date 12/11/21 M3 PT-IP Subjective Start: 12/11/21 15:57 Freq: NEEDED Status: Active Protocol: Document 12/14/21 10:18 SP (Rec: 12/14/21 13:13 SP [id number]) Subjective Physical Therapy Visit Type Type Treatment Note Visit Start Time 10:18 Visit Stop Time 10:53 Total Visit Minutes 35 Notes Vitals taken pre mobility: BP 140/87 HR 90 SaO2 99% on RA . Number of SNAKER Visits 1 Physical Therapy Visit Comments Patient Comments Pt agreeable to working with therapy. Therapy Pain Assessment Pain When Pain Assessed During Mobility Pain Present Pain Present Pain Reported Location back Intensity 8 Pain Behaviors Facial Grimacing,Guarding, Restlessness Pain Management Techniques Apply Cold,Distraction, Modification of Treatment,Re- positioning,Timing of Activity with Medications M4 PT-IP Mobility and Gait Start: 12/11/21 15:57 Freq: NEEDED Status: Active Protocol: Document 12/14/21 10:18 SP (Rec: 12/14/21 13:13 SP [id number]) PT-Bed Mobility Assessment Supine to Sit Supine to Sit Standby Assistance,Bedrails Scooting Scooting to Edge of Bed Standby Assistance PT-Transfer Assessment Sit to and From Stand Sit to and from Stand Standby Assistance,Contact Guard Assistance,Minimal Assistance,Use of Upper Extremities Equipment Transfer Assistive Device Gait Belt,Front Wheeled Walker Orthotic/Prosthetic Devices or Brace: No Transfers Transfer Destination Chair Transfer Technique Pt ambulated w/ FWW Transfer Ability Level of Assist Standby Assistance,Minimal Assistance,1 Person Assistance ,Use of Upper Extremities Comments Mobility Comments Pt was positioned on his L side w/ CP on back when arrived. Complete L SL>sit and scoot to EOB SBA. Sit>stand sBA>CGA>Min to complete full stand with cues push from bed w/ 1 UE and opp on FWW and quad facilitation to complete full stand, noted unsteady BLEs heavy BUE on FWW. Ed wt shift and BLE may assess strength for gait, good demonstrate w/FWW CGA. Pt pivoted FWW then RLE buckled into WB, Min A to recover into full stand, ed stand still assess stand ability/ breath. Pt donned mask using BUE stand unsupported, no sways or LOB, he proceeded gait to hallway w/ FWW CG<>close SBA follow w/ wc heavy BUE WB on FWW unsteady BLEs to stairs with 2 stand stops brief rests to and back to room, approx 425 ft. Completed 2 sets 3 stairs L HR and SPC on R CGA, LOB x1 at top during pivot L between sets Min A recover due to RLE buckling. Pt return to chair in room SBA, steady pivot w/ FWW and proper hand placement slow sit. SNAKER provided education recommend 18/10 and HHPT to assist with safety mobility at home RV due to LOB x2 with SNAKER. Pt stated is not feasable, has a friend to help him get home, understands needed the help in tx but declined any further assist and requesting to return home. I will be ok. My friend will help me get in RV and will I have the support needed to get around FWW/ SPC and don't plan leaving until my appt with PT 6 weeks from now. SNAKER stated your friend should know the help you needed and asking him to assist you if required during mobility. SNAKER stated SNF could help you with strengthen getting around before returning home but pt declined. Pt was seated in chair, call light and all needs in reach before left. FWW positioned end bed, education use of call light. Notified nursing and care mgt LOB x2 and unsteady and fall risk, should have chair alarm and observe for safety. Asked care mgt to talk to him further regarding help at home vs SNF support. Gait Assessment Gait Gait Assistance Required: Standby Assistance,Contact Guard Assist Distance (Feet) 425 Able to Maintain Weight Bearing Status Yes During Gait Assistive Devices Assistive Device Gait Belt,Front Wheeled Walker Orthotic/Prosthetic Devices or Brace: No Gait Deviations General Gait Pattern Antalgic,Decreased Stride Length,Decreased Feet Clearance,Lateral Trunk Lean Factors Limiting Gait Function Factors Limiting Gait Function Decreased Activity Tolerance, Decreased Strength,Limited Range of Motion,Pain,Poor Balance,Poor Safety Awareness Comments Gait Comments Cued decrease stride on L, tall posturing, core & quad facilitation on R to allow decrease risk buckle. Stair Climbing Assessment Evaluation Level of Assist On Stairs Contact Guard Assistance, Minimal Assistance,1 Person Assistance Devices Stair Climbing Assistive Devices Straight Cane,Left Railing Technique/Endurance Stair Climbing Direction Ascend and Descend Stair Climbing Technique Step to Step Number of Steps Climbed 3 Stair Climbing Set # Repetitions (reps) 2 Comments Stair Climbing Comments Pt step to patterning, unable reach across to L BUE so provided SPC on R has at home, CGA. At top stairs LOB RLE buckled during pivot to R, Min A recover. CGA descend step to, good SPC positioning keeping on same step good back alignment, stable CGA 2nd set stairs no sway/ LOB. He stated tiring end 2nd set. PT-Balance Assessment Sitting Balance and Reactions Static Sitting Balance Ability Normal Dynamic Sitting Balance Ability Good Standing Balance and Reactions Static Standing Balance Ability Good Dynamic Standing Balance Ability Fair Device Used FWW Comments Other Balance Tests/Deviations/Treatment See mobility comments. : M5 PT-IP Objective Assessments Start: 12/11/21 15:57 Freq: NEEDED Status: Active Protocol: Document 12/11/21 15:07 AB (Rec: 12/11/21 16:10 AB [id number]) Orientation Orientation/Cognition Level of Alertness Alert Orientation Name,Place,Situation Safety Awareness Decreased Safety Awareness Memory Description Short Term Impaired Gross Range of Motion Lower Extremity ROM Assessment Within Functional Limits Strength Lower Extremity Strength Hip 4-/5 Knee 4-/5 Sensation Assessment Sensation Gross Sensation WNL Muscle Tone Muscle Tone WNL Yes M6 PT-IP Treatment Start: 12/11/21 15:57 Freq: NEEDED Status: Active Protocol: Document 12/14/21 10:18 SP (Rec: 12/14/21 13:13 SP [id number]) Physical Therapy Treatment Education Education Provided Precautions,Weight Bearing Status,Safety Other Treatments Other Treatment Performed Good demonstration hip hinge and neutral spine duriing sit< > stand, bed mob. M7 PT-IP Assessment and Plan Start: 12/11/21 15:57 Freq: NEEDED Status: Active Protocol: Document 12/14/21 10:18 SP (Rec: 12/14/21 13:13 SP [id number]) PT Summary Assessment and Plan Potential Rehabilitation Potential Good Status of Condition at Evaluation Evolving Summary Impairments Pain,ROM,Strength,Balance, Coordination,Sensation,Tone, Cognition,Bed Mobility, Transfers,Gait,Activity Tolerance Progress Towards Goals Progressing Toward Goals,Slow Progress due to Pain,Slow Progress due to Activity Tolerance Assessment Summary Pt unsteady BLE in standing w/ heavy BUE on FWW support CG- close SBA, LOB x2 Min A recover at EOB and top stairs. He progressed his gait distance w/ FWW, stair training using L rail and SPC on R. Pt lives in an RV and discussed 18/10 HHPT recommendation vs SNF for safety with LOB x2 Merlyn recover during tx, unsteady decreased core and BLE strength in standing. Pt declined, see mobility comments. Goals Bed Mobility Goal Independent Transfer Goal Independent,Front Wheeled Walker Gait Goal Independent,Front Wheel Walker Gait Distance 200 Other Goals improve transfers/ ambulation using SPC/ without AD 200 ft mod I up/down 2 steps L rail/SPC mod I Days to Meet Goals 5 Frequency of Treatment Frequency Of Treatment Twice a Day Treatment Plan Physical Therapy Treatment Plan Bed Mobility Training,Transfer Training,Gait Training, Therapeutic Exercise,Balance Retraining,Post Op Education, Discharge Planning,Hot or Cold Pack,Neuromuscular Re-ed, Coordination Retraining,Manual Therapy Other Recommendations and Next Treatment transfers, gait w/ FWW, Focus standing balance activities. Precautions Lumbar Precautions Log Roll,No Twisting,Limit Bending,Lifting Restriction of 10 lbs,Gait Belt above Incisional Area Recommendations To Nursing Amount of Assist Needed 1 Person Assist Discharge Recommendations PT Discharge Recommendations Home with Assistance,Home with 18/10 Assist Available,Home Health,SNF Rehab Transportation Needs at Discharge Private Vehicle,Wheelchair/ Cabulance
--- NOTE | 2021-12-14 11:26 | CM.DPC ---
DCP Cont: DCP spoke with PT and PT discussed with pt that HH would be a great option for him. Pt told PT he would think about it. Later during the morning, DCP went to ask if pt wanted HH services and pt states, Nope. I don't want it. Pt states that his friend will be here @ 1800 to pick him up from the hospital. DCP attempted to discuss HH with pt twice during stay and pt has declined at this time. Berenice Cantrell RN/ALYSEP
[2021-12-14] MEDS: SUMAtriptan 25 MG TABLET PO ×2 (11:47→20:43)
--- NOTE | 2021-12-14 13:19 | CM.DPC ---
DCP Cont: Patient is not wanting to leave, not mentally ready. He has discharge orders. Went to speak to patient, indicated, I'm not leaving today, I'm constipated, my pain is an 8-10, and I'm not going back to the best place. Did not let DC Harpsichord Maker to get in a work, had CHELY Yancey, in the room. Stated, I'm getting sick of all of you bugging me and waking me up. Asked patient if he disputed his discharge, and he indicated, he has already called the phone number on the Medicare form. Mentioned to patient that this is elective surgery, he turned over and said, check the record and stop bugging me. Called the [facility] number on the IMM form. Confirmed with Renee at [facility], that patient called them at about 1500 their time, noon our time. They did not have the correct fax number of this hospital, gave it to [facility]. They will be asking for records. Gave them the correct phone number for care managent as well. CHELY Yancey, was also present in the room, and she has left NITHYA Alaniz, a message. Need to keep discharge in the computer so appeal can start. Will await record request, and patient will be staying another day. Will also need to confirm that patient's insurance is correct, currently indicates [facility] Medicare. P: DCP to continue to follow. At this time, patient is appealing discharge, and [facility] has been called. Awaiting for record request. Lita Londono RN/Rivet Passer
--- NOTE | 2021-12-14 15:06 | PT.IPTN ---
Current Diagnoses Spondylolisthesis, lumbar region (12/11/21) Spinal stenosis, lumbar region with neurogenic claudication (12/11/21) Surgery Performed Operation Date: 12/11/21 07:45 Actual Procedures p L4-5, L5-S1 TLIF w. posterior instrumentation-Robot - Roland Yates MD Physical Therapy Treatment Note M2 PT-IP Current Condition Start: 12/11/21 15:57 Freq: NEEDED Status: Active Protocol: Document 12/14/21 14:45 SP (Rec: 12/14/21 15:41 SP [id number]) Physical Therapy Current Condition Current Condition Evaluation Date 12/11/21 Treatment Diagnosis s/p L4-5, L5S1 TLIf; difficulty in walking Onset Date 12/11/21 M3 PT-IP Subjective Start: 12/11/21 15:57 Freq: NEEDED Status: Active Protocol: Document 12/14/21 14:45 SP (Rec: 12/14/21 15:41 SP [id number]) Subjective Physical Therapy Visit Type Type Treatment Note Visit Start Time 14:45 Visit Stop Time 15:06 Total Visit Minutes 21 Number of INSPECTION CLERK Visits 2 Physical Therapy Visit Comments Patient Comments Pt agreeable to working with therapy. Patient Goals To return home RV when pain controlled. Therapy Pain Assessment Pain When Pain Assessed At Rest Pain Present Pain Present Pain Reported Location back Intensity 7 Scale Used 7/10 at rest, 8/10 with mobility- premedicated Description With Movement Pain Behaviors Calling Out,Facial Grimacing, Guarding,Restlessness,Wincing Pain Management Techniques Apply Cold,Distraction, Modification of Treatment,Re- positioning,Timing of Activity with Medications M4 PT-IP Mobility and Gait Start: 12/11/21 15:57 Freq: NEEDED Status: Active Protocol: Document 12/14/21 14:45 SP (Rec: 12/14/21 15:41 SP [id number]) PT-Bed Mobility Assessment Rolling Type of Rolling Log Rolling,Roll to Left Level of Assist Standby Assistance,1 Person Assistance Supine to Sit Supine to Sit Moderate Assistance,1 Person Assistance,Bedrails Scooting Scooting to Edge of Bed Standby Assistance PT-Transfer Assessment Sit to and From Stand Sit to and from Stand Standby Assistance,Contact Guard Assistance,1 Person Assistance,Use of Upper Extremities Equipment Transfer Assistive Device Gait Belt,Front Wheeled Walker Orthotic/Prosthetic Devices or Brace: No Transfers Transfer Destination Chair Transfer Technique Pt ambulated w/ FWW Transfer Ability Level of Assist Contact Guard Assistance, Minimal Assistance,1 Person Assistance,Use of Upper Extremities Comments Mobility Comments Pt laying on L side with pillows between BLEs and head when arrived. Cued for keeping knees bent to support spinal alignment, LR L onto back, lateral bridge scoot to R before LR L again, L SL to sit Mod A x1 for trunk righting from flat bed (elevated last tx- forgot to identify). Scoot to EOB SBA. Sit>stand CGA post redirection cues push from bed to come to stand, decrease FWW tipping on himself. Once in standing pt let go of FWW to adjust undergarment and B knees buckled, Mod A to recovery while pt BUE immediate heavy WB on FWW. Ed for 1 UE on FWW opposite can readjust undergarment. Pt proceeded gait into hallway, occasional cues for head up look head and core, knee extension awareness widen TASHIA (to decrease semitandem patterning ), no LOB/sways but BLEs unsteady midstance phases mod BUE WB on FWW during gait to L end hallway and back to room 130 ft CGA. Pt returned to chair in room CGA, cued look to side center self and reach back hip hinge to sit, time needed to process. Pt had hard time bending forward at hips to sit. 10%A to sit in to chair, scooted back and yelled out in pain leaned back in chair to quick and back spasmed. Cued breath and awareness of core bracing amount needed during movement to give spinal support. INSPECTION CLERK reiterated to pt is needed support in standing especially initially and fall risk, recommended HHPT and suggested someone to stay with him for support vs SNF to progress stronger before returning home . Pt stated I just think I need to stay one more day and take recommendations seriously but I think I will be ok at home myself. Pt had call light and all needs in reach. Nursing aware no chair alarm donned and observe safety mobility. FWW was positioned near tv away from pt, and encouraged use call light for support. Gait Assessment Gait Gait Assistance Required: Standby Assistance,Contact Guard Assist,1 Person Assist Distance (Feet) 130 Able to Maintain Weight Bearing Status Yes During Gait Assistive Devices Assistive Device Gait Belt,Front Wheeled Walker Orthotic/Prosthetic Devices or Brace: No Gait Deviations General Gait Pattern Antalgic,Decreased Stride Length,Decreased Feet Clearance,Flexed Trunk,Lateral Trunk Lean,Narrow Based Gait Factors Limiting Gait Function Factors Limiting Gait Function Decreased Activity Tolerance, Decreased Strength,Limited Range of Motion,Pain,Poor Balance,Poor Safety Awareness Comments Gait Comments cued increase TASHIA, core/quad facilitation during midstance phases for stability. PT-Balance Assessment Sitting Balance and Reactions Static Sitting Balance Ability Good Dynamic Sitting Balance Ability Good Standing Balance and Reactions Static Standing Balance Ability Fair Dynamic Standing Balance Ability Fair Device Used FWW Comments Other Balance Tests/Deviations/Treatment See mobility comments. : M5 PT-IP Objective Assessments Start: 12/11/21 15:57 Freq: NEEDED Status: Active Protocol: Document 12/11/21 15:07 AB (Rec: 12/11/21 16:10 AB [id number]) Orientation Orientation/Cognition Level of Alertness Alert Orientation Name,Place,Situation Safety Awareness Decreased Safety Awareness Memory Description Short Term Impaired Gross Range of Motion Lower Extremity ROM Assessment Within Functional Limits Strength Lower Extremity Strength Hip 4-/5 Knee 4-/5 Sensation Assessment Sensation Gross Sensation WNL Muscle Tone Muscle Tone WNL Yes M6 PT-IP Treatment Start: 12/11/21 15:57 Freq: NEEDED Status: Active Protocol: Document 12/14/21 14:45 SP (Rec: 12/14/21 15:41 SP [id number]) Physical Therapy Treatment Education Education Provided Precautions,Weight Bearing Status,Safety Other Treatments Other Treatment Performed Emphasis on hip hinge and neutral spine during sit< stand, trunk alignment knees bent turn shoulders as one unit during LR bed mob. M7 PT-IP Assessment and Plan Start: 12/11/21 15:57 Freq: NEEDED Status: Active Protocol: Document 12/14/21 14:45 SP (Rec: 12/14/21 15:41 SP [id number]) PT Summary Assessment and Plan Potential Rehabilitation Potential Good Status of Condition at Evaluation Evolving Summary Impairments Pain,ROM,Strength,Balance, Coordination,Sensation,Tone, Cognition,Bed Mobility, Transfers,Gait,Activity Tolerance Progress Towards Goals Progressing Toward Goals,Slow Progress due to Pain,Slow Progress due to Activity Tolerance Assessment Summary Pt Mod A bed mob, LOB x1 at EOB w/ FWW Mod A recover see comments, ed readjust undergarments 1 UE on FWW/ other complete task and switch each side for support. CGA gait 130 ft, cued increase TASHIA for stability, Mod UE WBon FWW each step. Recommending 24 /7 HHPT recommendation vs SNF for safety with LOB x1 this tx . Pt stated can sleep in recliner vs bed, agreed best option at this time. Will continue to assess progress if here tomorrow. Goals Bed Mobility Goal Independent Transfer Goal Independent,Front Wheeled Walker Gait Goal Independent,Front Wheel Walker Gait Distance 200 Other Goals improve transfers/ ambulation using SPC/ without AD 200 ft mod I up/down 2 steps L rail/SPC mod I Days to Meet Goals 5 Frequency of Treatment Frequency Of Treatment Twice a Day Treatment Plan Physical Therapy Treatment Plan Bed Mobility Training,Transfer Training,Gait Training, Therapeutic Exercise,Balance Retraining,Post Op Education, Discharge Planning,Hot or Cold Pack,Neuromuscular Re-ed, Coordination Retraining,Manual Therapy Other Recommendations and Next Treatment transfers, gait w/ FWW, Focus standing balance activities. Precautions Lumbar Precautions Log Roll,No Twisting,Limit Bending,Lifting Restriction of 10 lbs,Gait Belt above Incisional Area Recommendations To Nursing Amount of Assist Needed 1 Person Assist Discharge Recommendations PT Discharge Recommendations Home with Assistance,Home with 24/7 Assist Available,Home Health,SNF Rehab Transportation Needs at Discharge Private Vehicle
[2021-12-14 16:00] VITALS: BP 137/48; PULSE 78; RESP 18; TEMP 37.5; O2SAT 97
[2021-12-14] MEDS: SENNOSIDES 8.6 MG TABLET 17.2 MG PO (20:42)
[2021-12-14 20:44] VITALS: BP 129/81; PULSE 83
[2021-12-14 23:54] VITALS: BP 129/71; PULSE 64; RESP 16; TEMP 36.2; O2SAT 97
[2021-12-15] MEDS: hydrOXYzine pamoate 25 MG CAPSULE PO ×3 (01:14→13:34)
[2021-12-15] MEDS: ACETAMINOPHEN 325 MG TABLET 650 MG PO ×2 (01:14→09:29)
[2021-12-15] MEDS: OXYCODONE IR 5 MG TABLET 10 MG PO ×4 (01:15→13:33)
--- NOTE | 2021-12-15 08:30 | OT.IPNOTE ---
Pt in too much pain and not wanting to be seen at this time, nursing aware. Pt requesting to shower after lunch. To check on pt if OT still here, otherwise notified nursing to assist pt.
[2021-12-15 08:48] VITALS: BP 142/99; PULSE 97; RESP 18; TEMP 36.8; O2SAT 95
[2021-12-15] MEDS: MELOXICAM 7.5 MG TABLET 15 MG PO (09:00)
[2021-12-15] MEDS: lisinopriL 20 MG TABLET PO (09:01)
[2021-12-15] MEDS: DOCUSATE 100 MG CAPSULE PO (09:01)
--- NOTE | 2021-12-15 11:11 | CM.DPC ---
DCP Cont: Pt was discussed in morning rounds. It was verbalized that the pt told physical therapy that he would be leaving @ 1500 today. Pt denied OT this morning. ALYSEP confirmed with RN that pt told her 1500 discharge time and his friend will be picking him up. Chart still being reviewed by Isaiah. Awaiting decision. Pt to discharge home via friend POV. Berenice Cantrell RN/DARCI
--- NOTE | 2021-12-15 12:38 | PT.IPTN ---
Current Diagnoses Spondylolisthesis, lumbar region (12/11/21) Spinal stenosis, lumbar region with neurogenic claudication (12/11/21) Surgery Performed Operation Date: 12/11/21 07:45 Actual Procedures p L4-5, L5-S1 TLIF w. posterior instrumentation-Robot - Roland Yates MD Physical Therapy Treatment Note M2 PT-IP Current Condition Start: 12/11/21 15:57 Freq: NEEDED Status: Active Protocol: Document 12/15/21 12:11 SP (Rec: 12/15/21 13:03 SP [id number]) Physical Therapy Current Condition Current Condition Evaluation Date 12/11/21 Treatment Diagnosis s/p L4-5, L5S1 TLIf; difficulty in walking Onset Date 12/11/21 M3 PT-IP Subjective Start: 12/11/21 15:57 Freq: NEEDED Status: Active Protocol: Document 12/15/21 12:11 SP (Rec: 12/15/21 13:03 SP [id number]) Subjective Physical Therapy Visit Type Type Treatment Note Visit Start Time 12:11 Visit Stop Time 12:38 Total Visit Minutes 27 Number of CD MIXER HELPER Visits 3 Physical Therapy Visit Comments Patient Comments Pt agreeable to working with therapy. Patient Goals To return home RV later today. Therapy Pain Assessment Pain When Pain Assessed During Mobility Pain Present Pain Present Pain Reported Location back Intensity 6 Scale Used Numeric (0 - 10) Description With Movement Pain Behaviors Facial Grimacing,Guarding Pain Management Techniques Apply Cold,Distraction, Modification of Treatment,Re- positioning,Timing of Activity with Medications M4 PT-IP Mobility and Gait Start: 12/11/21 15:57 Freq: NEEDED Status: Active Protocol: Document 12/15/21 12:11 SP (Rec: 12/15/21 13:03 SP [id number]) PT-Bed Mobility Assessment Rolling Type of Rolling Log Rolling,Bilateral Level of Assist Independent Supine to Sit Supine to Sit Standby Assistance Sit to Supine Sit to Supine Independent Scooting Scooting to Edge of Bed Independent PT-Transfer Assessment Sit to and From Stand Sit to and from Stand Standby Assistance,Use of Upper Extremities Equipment Transfer Assistive Device Gait Belt,Front Wheeled Walker Orthotic/Prosthetic Devices or Brace: No Transfers Transfer Destination Bed,Chair Transfer Technique Pt ambulated w/ FWW Transfer Ability Level of Assist Standby Assistance,Use of Upper Extremities Comments Mobility Comments Pt was standing w/ fww 1 UE support writing on room marker board when arrived, stable balance. Pt able progress gait into hallway down to stairs, completed 3 stairs BUE on L HR assimulate home RV enterance side stepping close SBA with occasional cues for handpositioning (stated friend can give him), pt needed little time to sequence side step BLEs, UEs positioning asecend/descend. Pt returned back to room total gait 425 ft no w/c follow, good stability , self cues for posturing and not as much BUE WB on FWW. Pt completed stand<>sit<>L SL<> supine. Ed for pillow under B thighs on back for sleeping or between knees side sleeping, recommended no stomach sleeping at this time. Pt SPT bed>chair w/ FWW S, few times little unsteady BLEs but no trunk sways or LOB, self cue for use core and stand still stabilize. Pt is ok to return to home RV. CD MIXER HELPER continued to recommend HHPT for increase strengthe/stability but pt declined stated has friend to help if needed, has referral to PT in 6 weeks for help better strengthe/balance. Pt stated nursing will be in soon to assist with shower. Pt had call light and all needs in reach before left. Gait Assessment Gait Gait Assistance Required: Standby Assistance Distance (Feet) 425 Able to Maintain Weight Bearing Status Yes During Gait Assistive Devices Assistive Device Gait Belt,Front Wheeled Walker Orthotic/Prosthetic Devices or Brace: No Gait Deviations General Gait Pattern Antalgic,Decreased Feet Clearance,Flexed Trunk,Narrow Based Gait Factors Limiting Gait Function Factors Limiting Gait Function Decreased Activity Tolerance, Decreased Strength,Limited Range of Motion,Pain Comments Gait Comments see mobility comments Stair Climbing Assessment Evaluation Level of Assist On Stairs Standby Assistance Devices Stair Climbing Assistive Devices Left Railing Technique/Endurance Stair Climbing Direction Ascend and Descend Stair Climbing Technique Step to Step Number of Steps Climbed 3 Stair Climbing Set # Repetitions (reps) 1 Comments Stair Climbing Comments step to, L HR SBA. PT-Balance Assessment Sitting Balance and Reactions Static Sitting Balance Ability Good Dynamic Sitting Balance Ability Good Standing Balance and Reactions Static Standing Balance Ability Good Dynamic Standing Balance Ability Good Device Used FWW Comments Other Balance Tests/Deviations/Treatment See mobility comments. : M5 PT-IP Objective Assessments Start: 12/11/21 15:57 Freq: NEEDED Status: Active Protocol: Document 12/11/21 15:07 AB (Rec: 12/11/21 16:10 AB [id number]) Orientation Orientation/Cognition Level of Alertness Alert Orientation Name,Place,Situation Safety Awareness Decreased Safety Awareness Memory Description Short Term Impaired Gross Range of Motion Lower Extremity ROM Assessment Within Functional Limits Strength Lower Extremity Strength Hip 4-/5 Knee 4-/5 Sensation Assessment Sensation Gross Sensation WNL Muscle Tone Muscle Tone WNL Yes M6 PT-IP Treatment Start: 12/11/21 15:57 Freq: NEEDED Status: Active Protocol: Document 12/15/21 12:11 SP (Rec: 12/15/21 13:03 SP [id number]) Physical Therapy Treatment Education Education Provided Precautions,Weight Bearing Status,Safety M7 PT-IP Assessment and Plan Start: 12/11/21 15:57 Freq: NEEDED Status: Active Protocol: Document 12/15/21 12:11 SP (Rec: 12/15/21 13:03 SP [id number]) PT Summary Assessment and Plan Potential Rehabilitation Potential Good Status of Condition at Evaluation Evolving Summary Impairments Pain,ROM,Strength,Balance, Coordination,Sensation,Tone, Cognition,Bed Mobility, Transfers,Gait,Activity Tolerance Progress Towards Goals Progressing Toward Goals,Slow Progress due to Pain,Slow Progress due to Activity Tolerance Assessment Summary Pt I in bed mobility, good compliance log roll, SBA gait 425 ft total hallway room <> stairs back w/FWW and BUE on stair mgt L HR, stable today no sways or LOB. Declined HHPT recommendation. Pt is ok to go home with friend to assist him as needed. Pt states has referral to outpt PT after next ortho appt 6 weeks. Goals Bed Mobility Goal Independent Transfer Goal Independent,Front Wheeled Walker Gait Goal Independent,Front Wheel Walker Gait Distance 200 Other Goals improve transfers/ ambulation using SPC/ without AD 200 ft mod I up/down 2 steps L rail/SPC mod I Days to Meet Goals 5 Frequency of Treatment Frequency Of Treatment Twice a Day Treatment Plan Physical Therapy Treatment Plan Bed Mobility Training,Transfer Training,Gait Training, Therapeutic Exercise,Balance Retraining,Post Op Education, Discharge Planning,Hot or Cold Pack,Neuromuscular Re-ed, Coordination Retraining,Manual Therapy Other Recommendations and Next Treatment gait w/ SPC, balance Focus activities Precautions Lumbar Precautions Log Roll,No Twisting,Limit Bending,Lifting Restriction of 10 lbs,Gait Belt above Incisional Area Recommendations To Nursing Amount of Assist Needed Standby Assistance Discharge Recommendations PT Discharge Recommendations Home with Assistance,Home Health Transportation Needs at Discharge Private Vehicle
--- NOTE | 2021-12-15 14:47 | PC.NURSE ---
alert, oriented. voices needs, SBA mobility in AM, has steady gait. by lunch time, independent in the room. + CSM checks. 1400: bandage changed to lower back. has approx 4 inch incision on either side of his spine, with smaller incision about an inch below. all lai are intact. area covered w/ clean, dry gauze, paper-taped and secured. timed/ dated. pain controlled w/ oxycodone PRN thru the shift. also using ice pack and 1:1 listening support. he has lost a child right before her 18th bday, and was emotional talking about her. d/c orders received, paperwork reviewed w/ patient.
== END 2021-12-15 15:00 | disposition home or self-care (01) | DRG 455 ==
PROVIDERS: Admitting Provider Orthopaedic Surgery Orthopaedic Surgery of the Spine; Family Provider Family Medicine; PCP Family Medicine; Referring Provider Orthopaedic Surgery Orthopaedic Surgery of the Spine; Visit Provider Orthopaedic Surgery Orthopaedic Surgery of the Spine
PROC: 0SG00AJ Fusion of Lumbar Vertebral Joint with Interbody Fusion Device, Posterior Approach, Anterior Column, Open Approach (ICD-10-PCS; principal; 2021-12-11 07:45)
DX: M43.16 Spondylolisthesis, lumbar region (principal); M48.062 Spinal stenosis, lumbar region with neurogenic claudication; M43.17 Spondylolisthesis, lumbosacral region; M48.07 Spinal stenosis, lumbosacral region; I10 Essential (primary) hypertension; G43.909 Migraine, unspecified, not intractable, without status migrainosus; Z87.891 Personal history of nicotine dependence; Z20.822 Contact with and (suspected) exposure to COVID-19
CPT/HCPCS: 36415; 72100; 76000; 82962; 85014; 85018; 87635; 97116; 97162; 97166; 97530; 97535; C9803; C1831; C9290; J0171; J0330; J0690; J1100; J1170; J2250; J2405; J2704; J3010; J3410

== ENCOUNTER → 2022-03-17 14:36 | Outpatient (CLI) | payer OTHER, MEDICAID, SELFPAY ==
[2022-03-12 16:22] VITALS: BMI 29.2
--- NOTE | 2022-03-17 14:39 | DI.RAD.S_ITS ---
PROCEDURE: XR CERVICAL SPINE 2V OR 3V INDICATIONS: chronic neck pain TECHNIQUE: 3 view(s) of the cervical spine were acquired. COMPARISON: None. FINDINGS: Bones: No fractures or dislocations to the C7 level. The lateral masses of C1 appear intact on the odontoid view. No suspicious bony lesions. Multilevel disc space narrowing and endplate osteophyte formation, worst at C3-C4, C4-C5, C5-C6, and C6-C7. Facet hypertrophy throughout the mid and lower cervical spine. Soft tissues: No prevertebral soft tissue swelling. IMPRESSION: Multilevel degenerative disc and facet disease. No acute fracture. No osseous lesion. If symptoms and/or clinical suspicion for pathology persist, further assessment with repeat, or advanced imaging (e.g., CT, MRI, or bone scan) may be helpful for further assessment. Dictated by: Tess Mcconnell M.D. on 03/17/2022 at 15:03 Approved by: Tess Mcconnell M.D. on 03/17/2022 at 15:22
== END ==
PROVIDERS: Family Provider Family Medicine; PCP Family Medicine; Referring Provider Family Medicine; Visit Provider Family Medicine
DX: M50.31 Other cervical disc degeneration, high cervical region; M43.16 Spondylolisthesis, lumbar region; M54.9 Dorsalgia, unspecified; I10 Essential (primary) hypertension; G89.4 Chronic pain syndrome; Z98.890 Other specified postprocedural states
CPT/HCPCS: 72040

== ENCOUNTER 2022-04-06 13:45 | Outpatient (RCR) | payer OTHER, MEDICAID, SELFPAY ==
[2021-12-11 15:57] VITALS: BMI 29.2
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
--- NOTE | 2022-01-19 14:29 | PT.OPPOC ---
Physical, Occupational & Speech Therapy At [facility] Current Diagnoses Spondylolisthesis, lumbar region (01/19/22) Spinal stenosis, lumbar region with neurogenic claudication (01/19/22) Difficulty in walking, not elsewhere classified (01/19/22) Abnormal posture (01/19/22) Weakness (01/19/22) Visit Care Team Role Provider Type Bill Machado MD Family Provider Physician Primary Care Provider Specialty: Family Practice Address: [address] [place] [address], [id number] Email: [email or web address] Roland Yates MD Attending Provider Physician Referring Provider Specialty: Orthopedics Orthopedic Surgery Address: [address] [place] [address], [address] Email: [email or web address] Plan Of Care PT-OP-T Assessment and Plan Start: 01/14/22 12:07 Freq: Status: Active Protocol: Document 01/19/22 13:01 [facility] (Rec: 01/19/22 14:29 [facility] [id number]) Physical Therapy Assessment Rehab Potential Rehabilitation Potential Fair Evaluation Complexity Number of Personal Factors/Comorbidities 3 or More Number of Body Systems Impaired 4 or More Clinical Presentation at Evaluation Evolving Impairments Impairments Activity Tolerance,Functional Activities,Functional Mobility ,Gait,Pain,Posture,ROM,Soft Tissue Mobility,Strength Goals transitions Jail Goal (LTG) Pt will be able to do sit tos tand w/o inc pain or LOB LTG Duration 04/13 walking Short Term Goal (STG) Pt will be able to return to walking 1 mile at a time without pain greater than 6/10 STG Duration 02/28 Jail Goal (LTG) Pt will be able to return to walking dogs w/o pain greater than 5/10. LTG Duration 04/13/22 balance Short Term Goal (STG) pt will be able to go up/down stairs and curbs w/o feeling of LOB. STG Duration 02/25 Jail Goal (LTG) Pt will be able to turn when walking w/o LOB LTG Duration 04/13/21 APRYL Impairment 26/50 Short Term Goal (STG) Pt will improve score to at least 19/50 to show improved functional ability. STG Duration 02/26/22 Jail Goal (LTG) Pt will improve score to at least 10/50 to show improved functional ability. LTG Duration 04/13/22 Assessment Summary Assessment Pt presents 6 weeks w/p L4-5, L5-S1 TLIF with no complications and good progression overall ofreturn to mobility. Pt does have history of chronic back ( Tspine to sacrum), neck and R hip pain which led to this surgery. He is hopeful to decrease pain to the point that he can do normal day to day activites without pain and is even considering wanting to be able to run on the beach . He still shows dec balance w /his gait and shows core and LE weakness. Ptw ould benefit from skilled PT to address this. Physical Therapy Plan Frequency and Duration Frequency of Treatment 1-2x/week Duration of treatment (weeks) 12 Plan of Care Start Date 01/19/22 Plan of Care End Date 04/13/22 Therapeutic Interventions Therapeutic Interventions Aquatic Therapy,Balance Training,Gait Training,Home Exercise Program,Joint Mobilizations,Manual Therapy, Neuromuscular Re-education, Patient/Caregiver Education, Self-Care/Home Management,Soft Tissue Mobilization,Taping, Therapeutic Activities, Therapeutic Exercises Modalities Cold Pack/Ice Massage,Electric Stimulation,Hot Packs, Ultrasound Next Visit Focus/Plan Next Note Type Treatment Note Next Visit Plan find out esme BORDEN shares w/pt at appt, supine core stabiltiy review of exercises, Hip stretches (piriformis, HS, hip flexor), step ups, gentle manual to back if incisions fully closed. Plan of Care Dates Plan of Care Start Date 01/19/22 Plan of Care End Date 04/13/22 Electronically Signed by: Cristina Lee, PT 01/19/22 4209 If you are in agreement with this Plan of Care, please return a signed and dated copy. I have reviewed this Plan of Care and certify that the skilled therapy services above are required to meet the patient?s needs. Physician Signature Date Printed Name and Credentials Clinical Instructor Signature Printed Name and Credentials
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
== END 2022-04-07 08:50 | disposition home or self-care (01) ==
LOC: PHYS 13:45
PROVIDERS: Family Provider Family Medicine; PCP Family Medicine; Referring Provider Orthopaedic Surgery Orthopaedic Surgery of the Spine; Visit Provider Orthopaedic Surgery Orthopaedic Surgery of the Spine
DX: M43.16 Spondylolisthesis, lumbar region (principal); M48.062 Spinal stenosis, lumbar region with neurogenic claudication; R53.1 Weakness; R26.2 Difficulty in walking, not elsewhere classified; R29.3 Abnormal posture
CPT/HCPCS: 97110; 97112; 97140; 97162; 97530; 97535

== ENCOUNTER → 2022-07-23 15:48 | Outpatient (CLI) | payer OTHER, MEDICAID, SELFPAY ==
[2022-07-13 14:35] VITALS: BMI 29.2
--- NOTE | 2022-07-23 15:49 | DI.RAD.S_ITS ---
PROCEDURE: XR CERVICAL SPINE 4V OR 5V INDICATIONS: NECK PAIN TECHNIQUE: 5 views of the cervical spine acquired. COMPARISON: [facility], CR, XR CERVICAL SPINE 2V OR 3V, 03/17/2022, 14:42. FINDINGS: Bones: No fractures or dislocations to the C7-T1 level. Oblique images demonstrate no bony foraminal stenoses. There is trace retrolisthesis of C3 on C4, C4 on C5. Multilevel moderate to severe degenerative disc space narrowing is present most prominent C5-6. Multilevel uncovertebral arthropathy is present. [id number] foraminal narrowing is present bilaterally from C3-4 through C6-7. Soft tissues: No prevertebral soft tissue swelling. IMPRESSION: Multilevel degenerative disc and foraminal narrowing. Overall appearance is relatively stable compared to prior exam. Dictated by: Jada Murray M.D. on 07/23/2022 at 16:24 Approved by: Jada Murray M.D. on 07/23/2022 at 16:25
--- NOTE | 2022-07-23 15:49 | DI.RAD.S_ITS ---
PROCEDURE: XR LUMBAR SPINE MIN 4V INDICATIONS: BACK PAIN TECHNIQUE: 5 views of the lumbar spine were acquired, including bilateral oblique views. COMPARISON: [facility], CR, XR LUMBAR SPINE 2-3V, 12/11/2021, 11:01. [facility], CR, XR LUMBAR SPINE 2 OR 3 VIEWS, 07/15/2022, 9:38. FINDINGS: Bones: 5 nonrib-bearing vertebrae are present. There is posterior fusion from L4 through S1. Hardware is intact without hardware fracture or periprosthetic lucency to suggest loosening. There is multilevel trace retrolisthesis from L1-2 to L3-4. Intervertebral spacers are noted L4-5, L5-S1. Multilevel anterior bridging osteophytes are present. Unchanged wedge deformity is present at L1. Severe foraminal narrowing is noted L5-S1, moderate to severe L4-5, mild to moderate L3-4. No vertebral body compression fractures. No suspicious bony lesions. Soft tissues: Overlying bowel gas pattern is normal. No suspicious soft tissue calcifications. Oblique images: No pars defects. IMPRESSION: Multilevel postsurgical and degenerative changes as above. Dictated by: Jada Murray M.D. on 07/23/2022 at 16:26 Approved by: Jada Murray M.D. on 07/23/2022 at 16:27
--- NOTE | 2022-07-23 15:49 | DI.RAD.S_ITS ---
PROCEDURE: XR SHOULDER RT MIN 2V INDICATIONS: RIGHT SHOULDER PAIN TECHNIQUE: 3 views of the shoulder were acquired. COMPARISON: None. FINDINGS: Bones: No fractures or dislocations, and there is a moderate degree of degenerative osteoarthritic change at the right shoulder, involving the acromioclavicular and glenohumeral joints equally.. No suspicious bony lesions. Visualized ribs appear intact. Soft tissues: No suspicious soft tissue calcifications. IMPRESSION: No prior trauma found. 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 Dictated by: Alexandre Lopez M.D. on 07/23/2022 at 16:22 Approved by: Alexandre Lopez M.D. on 07/23/2022 at 16:23
== END ==
PROVIDERS: Family Provider Family Medicine; PCP Family Medicine; Referring Provider Physical Medicine & Rehabilitation; Visit Provider Physical Medicine & Rehabilitation
DX: S32.010A Wedge compression fracture of first lumbar vertebra, initial encounter for closed fracture (principal); S32.040A Wedge compression fracture of fourth lumbar vertebra, initial encounter for closed fracture; M19.011 Primary osteoarthritis, right shoulder; M25.511 Pain in right shoulder; M50.322 Other cervical disc degeneration at C5-C6 level; M47.812 Spondylosis without myelopathy or radiculopathy, cervical region; M48.02 Spinal stenosis, cervical region; M99.01 Segmental and somatic dysfunction of cervical region; M48.07 Spinal stenosis, lumbosacral region; M48.061 Spinal stenosis, lumbar region without neurogenic claudication; M43.16 Spondylolisthesis, lumbar region; E78.2 Mixed hyperlipidemia; G89.29 Other chronic pain; Z98.1 Arthrodesis status
CPT/HCPCS: 72050; 72110; 73030

== ENCOUNTER 2022-08-02 12:45 | Outpatient (RCR) | payer OTHER, MEDICAID, SELFPAY ==
[2022-03-12 16:22] VITALS: BMI 29.2
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
--- NOTE | 2022-05-17 14:17 | PT-OP ANOTE ---
MD called re: high BP and re: pt tearful in most sessions. Talked to MA and informed this PT had encouraged pt to discuss psychologist care w/.
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
== END 2022-08-03 15:24 | disposition home or self-care (01) ==
LOC: PHYS 12:45
PROVIDERS: Absent Provider Family Medicine; Family Provider Family Medicine; PCP Family Medicine; Referring Provider Family Medicine; Visit Provider Family Medicine
DX: M54.2 Cervicalgia (principal); G89.29 Other chronic pain; M43.16 Spondylolisthesis, lumbar region; M43.27 Fusion of spine, lumbosacral region; M25.511 Pain in right shoulder; S32.040S Wedge compression fracture of fourth lumbar vertebra, sequela; S32.010S Wedge compression fracture of first lumbar vertebra, sequela; M99.08 Segmental and somatic dysfunction of rib cage
CPT/HCPCS: 97010; 97014; 97110; 97140; 97163; 97535; 97750; G0283

== ENCOUNTER 2022-08-19 12:35 | Outpatient (CLI) | payer OTHER, MEDICAID, SELFPAY ==
[2022-07-13 14:35] VITALS: BMI 29.2
[2022-08-19] VITALS (8 sets, daily range): BP systolic 130–157; BP diastolic 79–94; PULSE 74–94; RESP 13–20; TEMP 36.9; O2SAT 96–99
--- NOTE | 2022-08-19 12:37 | DI.RAD.S_ITS ---
PROCEDURE: PAIN SI JOINT INJECTION INDICATIONS: SACROILIAC DISORDER COMPARISON: None. FINDINGS: Fluoroscopic spot filming was performed to verify placement of spinal needles at the right sacroiliac joint level(s), as labeled on the films. Appropriate location(s) of the needle tip(s) was confirmed by injection of iodinated contrast. IMPRESSION: Fluoroscopic support for sacroiliac joint injection. Please see separate procedure note for further details. Dictated by: Den Castaneda M.D. on 08/19/2022 at 16:27 Approved by: Den Castaneda M.D. on 08/19/2022 at 16:29
[2022-08-19] MEDS: MIDAZOLAM 2 MG/2 ML VIAL 1 MG IV (14:05)
[2022-08-19] MEDS: BUPIVACAINE 0.5% (PF) 10 ML VIAL 2 ML INJ (14:09)
[2022-08-19] MEDS: IOPAMIDOL 15 ML VIAL 3 ML INJ (14:09)
[2022-08-19] MEDS: BETAMETHASONE 30 MG/5 ML MDV 12 MG INJ (14:10)
--- NOTE | 2022-08-19 14:15 | PM.PROC.IR.1 ---
Date/Time/Diagnoses Date of procedure: 08/19/22 Time of procedure: 14:15 Pre-procedure diagnosis: Sacroiliac joint pain/DJD Post-procedure diagnosis: same Procedure Notes Procedure: Fluoroscopically guided contrast controlled right sacroiliac joint injection Indications: Shan is referred by Dr. Machado for treatment of right sacroiliac joint DJD Physician: Raul Stapleton Total Fluoroscopy time (seconds): 5 Total sedation minutes: 6 Complications: none Procedure in detail & Post-procedure care: DESCRIPTION OF PROCEDURE Fluoroscopically guided, contrast controlled right sacroiliac joint injection Following review of allergies and review of potential side effects and complications, including, but not necessarily limited to, infection, allergic reaction, local tissue breakdown, temporary as well as permanent nerve injury, paralysis, stroke and possible , the patient indicated that they understood and agreed to proceed. An informed consent was signed by the patient, witnessed by a nurse, and placed in the patient's chart. Additionally, other treatment options including modalities, medications, and physical therapy were reviewed with the patient. After review of previous anaesthesic history and IV conscious sedation the patient was deemed safe to proceed with today?s procedure with IV conscious sedation as ASA class II designation. Safety time-out was performed to confirm patient ID, procedure to be performed and site of procedure. IV sedation was accomplished with a combination of 1mg of Versed was administered by the RN after DO order, titrated to patient comfort during the course of the procedure while the patient remained responsive to all verbal commands In the prone position following sterile prep and drape of the pelvic region, the hyper lucency on in the inferior aspect of the sacroiliac joint was identified fluoroscopically the skin was anesthetized be a 25 gauge 1 eventual with approximately 2 cc of 1% lidocaine solution. At this point, a 22 gauge 3 in spinal needle was atraumatically introduced and advanced under fluoroscopic guidance into the inferior aspect of the right sacroiliac joint. Following negative aspiration, approximately 0.3cc of Isovue-300 was injected confirming intra-articular placement without vascular uptake. Radiographic data, including multiple fluoroscopic views of the pelvis, reveals a spinal needle in the sacroiliac joint hyper lucent zone. Subsequent view show flow contrast tear superiorly and inferiorly within the joint capsule without vascular intrathecal uptake. At this point a total of 1cc of 0.5% Marcaine was combined with 1cc of 6 mg of betamethasone was injected without incident. The procedure tolerated the procedure well without signs or symptoms of complications prior to transfer to the recovery area continued monitoring without incident. The patient was then transferred to the recovery area with a bur observed for an appropriate time after the injection. The patient reverted a vas score of 7 prior to the procedure and post-procedure vas of 1. POSTOP INSTRUCTIONS The patient was provided with a pain like to continue to record the patient's response to the target specific procedure prior to the patient's follow-up visit with the referring physician. Additionally, specific post injection care instructions and a contact number to our office were provided if concerns arise regarding the possible complications associated with procedure are suspected.
== END 2022-08-19 15:15 | disposition home or self-care (01) ==
LOC: RAD 12:36
PROVIDERS: Family Provider Family Medicine; PCP Family Medicine; Referring Provider Physical Medicine & Rehabilitation; Visit Provider Physical Medicine & Rehabilitation
DX: M53.3 Sacrococcygeal disorders, not elsewhere classified (principal)
CPT/HCPCS: 27096; J0702; J2250

== ENCOUNTER → 2022-10-26 17:13 | Outpatient (CLI) | payer OTHER, MEDICAID, SELFPAY ==
[2022-07-13 14:35] VITALS: BMI 29.2
--- NOTE | 2022-10-26 17:16 | DI.MRI.S_ITS ---
PROCEDURE: MR LUMBAR SPINE WO CON INDICATIONS: severe pain, unstable mobility TECHNIQUE: Noncontrast sagittal T1 spin echo and T2 fast echo, sagittal STIR, and T2 fast spin echo through the lumbar spine. In cases with scoliosis, additional coronal T2 fast spin echo may be performed. COMPARISON: [facility], MR, L-SPINE WITHOUT CONTRAST, 11/06/2013, 13:05. FINDINGS: Image quality: Excellent. Alignment and Curvature: Grade 1 anterolisthesis T12 on L1. Minimal retrolisthesis of L1 on L2. Bone Marrow: Postsurgical changes from L4 through S1 posterior spinal fixation and discectomy. Stable anterior wedge compression deformity of the L1 vertebral body with greater than 50% height loss anteriorly. No acute vertebral body compression deformities. Multilevel degenerative endplate changes. Spinal Cord: Conus medullaris terminates at the L1 level. Visualized cord demonstrates normal signal and size. Paraspinous Soft Tissues: No paravertebral masses. Right renal cyst. T12-L1: Retrolisthesis and facet arthropathy with thickening of ligamentum flavum. Mild to moderate central canal stenosis. No neural foraminal stenosis. L1-L2: Disc desiccation height loss with a posterior disc bulge. Facet arthropathy and thickening of ligamentum flavum. Mild central canal stenosis and narrowing of the lateral recesses. mild bilateral neural foraminal stenosis. L2-L3: Disc desiccation and posterior disc bulge. Facet arthropathy and thickening ligamentum flavum. Mild to moderate central canal stenosis is mildly progressed. Mild neural foraminal stenosis. L3-L4: Disc desiccation height loss and a small posterior disc bulge. Facet arthropathy and thickening ligamentum flavum. Moderate central canal stenosis similar to prior. Mild bilateral neural foraminal stenosis is similar to prior. L4-L5: Postsurgical changes. No central canal stenosis. Facet arthropathy. Moderate bilateral neural foraminal stenosis. L5-S1: Postoperative changes. No central canal stenosis. Severe right neural foraminal stenosis. Mild left neural foraminal stenosis. IMPRESSION: 1. Multilevel degenerative changes of the lumbar spine status post L4 through S1 posterior spinal fixation 2. There is moderate central canal stenosis at L3-L4 which is similar compared to prior. 3. Multilevel neural foraminal narrowing which is worse at L5-S1 on the right with severe narrowing. Multilevel mild and moderate neural foraminal narrowing as described above. 4. Stable L1 compression deformity. No acute compression deformities. Dictated by: Angel Cruz M.D. on 10/27/2022 at 9:19 Approved by: Angel Cruz M.D. on 10/27/2022 at 9:28
== END ==
PROVIDERS: Family Provider Family Medicine; PCP Family Medicine; Referring Provider Family Medicine; Visit Provider Family Medicine
DX: M47.816 Spondylosis without myelopathy or radiculopathy, lumbar region (principal); M47.817 Spondylosis without myelopathy or radiculopathy, lumbosacral region; M48.061 Spinal stenosis, lumbar region without neurogenic claudication; M48.07 Spinal stenosis, lumbosacral region; S32.010S Wedge compression fracture of first lumbar vertebra, sequela; S32.040S Wedge compression fracture of fourth lumbar vertebra, sequela; M43.16 Spondylolisthesis, lumbar region; M54.40 Lumbago with sciatica, unspecified side; M43.27 Fusion of spine, lumbosacral region; M99.03 Segmental and somatic dysfunction of lumbar region; G89.4 Chronic pain syndrome; Z98.890 Other specified postprocedural states
CPT/HCPCS: 72148

== ENCOUNTER → 2023-01-05 07:27 | Outpatient (CLI) | payer OTHER, MEDICAID, SELFPAY ==
[2022-07-13 14:35] VITALS: BMI 29.2
[2023-01-05 08:18] LABS: Add Manual Diff / Slide Review NO; Basophils Absolute Auto 0 /uL (0-100); Basophils Percent Auto 0.6 % (0-2); Eosinophils Absolute Auto 300 /uL (0-450); Eosinophils Percent Auto 3.7 % (2-4); Hematocrit 45.7 % (41-53); Hemoglobin 15.7 g/dL (13.5-17.5); Lymphocytes Absolute Auto 2500 /uL (1100-4500); Lymphocytes Percent Auto 32.3 % (25-40); Mean Corpuscular HGB Conc 34.3 % (30-36); Mean Corpuscular Hemoglobin 30.5 PG (26-34); Mean Corpuscular Volume 88.9 fL (80-100); Monocytes Absolute Auto 700 /uL (0-900); Monocytes Percent Auto 9.4 % (3-14); Neutrophils Absolute Auto 4100 /uL (1500-7000); Platelet Count 288 X10^3/uL (150-400); Red Blood Cell Count 5.14 X10^6/uL (4.5-5.9); Red Cell Distribution Width 14.1 % (11.6-14.8); White Blood Cell Count 7.7 X10^3/uL (4.5-11.0)
[2023-01-05 08:47] LABS: Alanine Aminotransferase 29 IU/L (<50); Albumin 4.3 g/dL (3.5-5.0); Albumin Globulin Ratio 1.5 (1.0-2.8); Alkaline Phosphatase 83 U/L (38-126); Aspartate Aminotransferase 25 IU/L (17-59); BUN Creatinine Ratio 26.3 (6-22); Bilirubin Total 0.5 mg/dL (0.2-1.3); Blood Urea Nitrogen 20 mg/dL (9-20); Calcium 9.6 mg/dL (8.4-10.2); Carbon Dioxide 27 mmol/L (22-32); Chloride 103 mmol/L (98-107); Cholesterol 244 mg/dL (140-199); Estimated Glomerular Filt Rate > 60 mL/min (>60); Globulin 2.9 g/dL (1.7-4.1); Glucose 102 mg/dL (80-110); HDL Cholesterol 50 mg/dL (40-60); HEMOLYSIS < 15 (0-50); LDL Cholesterol Calculated 129 mg/dL (<100); Potassium 4.6 mmol/L (3.4-5.1); Sodium 137 mmol/L (137-145); Total Protein 7.2 g/dL (6.3-8.2); Triglycerides 323 mg/dL (35-150)
[2023-01-05 09:16] LABS: TSH w/ Reflex to FT4 3.16 uIU/mL (0.47-4.68)
[2023-01-05 09:18] LABS: Prostate Specific Antigen Scrn 2.21 ng/mL (0.1-4.0)
== END ==
PROVIDERS: Family Provider Family Medicine; PCP Family Medicine; Referring Provider Family Medicine; Visit Provider Family Medicine
DX: M47.816 Spondylosis without myelopathy or radiculopathy, lumbar region (principal); I10 Essential (primary) hypertension; Z12.5 Encounter for screening for malignant neoplasm of prostate; G89.4 Chronic pain syndrome; M54.9 Dorsalgia, unspecified; Z98.890 Other specified postprocedural states; F43.20 Adjustment disorder, unspecified
CPT/HCPCS: 36415; 80053; 80061; 84443; 85025; G0103

== ENCOUNTER 2023-01-25 10:08 | Outpatient (CLI) | payer OTHER, MEDICAID, SELFPAY ==
[2022-07-13 14:35] VITALS: BMI 29.2
[2023-01-25] VITALS (8 sets, daily range): BP systolic 136–164; BP diastolic 90–102; PULSE 85–91; RESP 16–20; TEMP 36.7; O2SAT 93–96
--- NOTE | 2023-01-25 10:10 | DI.RAD.S_ITS ---
PROCEDURE: PAIN L INTERLAMINAR/CAUDAL INJ INDICATIONS: SPONDYLOSIS COMPARISON: None. FINDINGS: Fluoroscopic spot filming was performed to verify placement of spinal needles at the lumbosacral level(s), as labeled on the films. Appropriate location(s) of the needle tip(s) was confirmed by injection of iodinated contrast. Lumbosacral fusion hardware. IMPRESSION: Needle placement as above Dictated by: Tess Mcconnell M.D. on 01/25/2023 at 12:05 Approved by: Tess Mcconnell M.D. on 01/25/2023 at 12:05
[2023-01-25] MEDS: MIDAZOLAM 2 MG/2 ML VIAL 1 MG IV (11:10)
[2023-01-25] MEDS: BUPIVACAINE 0.25% (PF) VIAL 2 ML INJ (11:15)
[2023-01-25] MEDS: BETAMETHASONE 30 MG/5 ML MDV 6 MG INJ (11:15)
[2023-01-25] MEDS: DEXAMETHASONE 10 MG/ML VIAL INJ (11:15)
[2023-01-25] MEDS: iopamidoL 15 ML VIAL 3 ML INJ (11:16)
--- NOTE | 2023-01-25 11:31 | P.PCN_ITS ---
Date/Time/Diagnoses Date of procedure: 01/25/23 Time of procedure: 11:31 Pre-procedure diagnosis: 1. HNP WITH RADICULAR FEATURES, 2. MULTILEVEL CENTRAL STENOSIS, Post-procedure diagnosis: same Procedure Notes Procedure: 1. FLUOROSCOPICALLY GUIDED CONTRAST CONTROLLED INTERLAMINAR EPIDURAL STEROID INJECTION - L5/S1 Indications: Shan is referred by Dr. Machado for treatment of Bilateral Foraminal Stenosis L>R LE symptoms. Physician: Raul Stapleton Total Fluoroscopy time (seconds): 10 Total sedation minutes: 12 Complications: none Procedure in detail & Post-procedure care: FINDINGS Multilevel Central Spinal Stenosis with Nerve Root Compression DESCRIPTION OF PROCEDURE Fluoroscopically guided, contrast-controlled L5/S1 translaminar epidural steroid injection. Following review of allergy and review of potential side effects and complications, including, but not necessarily limited to, infection, allergic reaction, local tissue breakdown, temporary as well as permanent nerve injury, paralysis, stroke and possible , the patient indicated that the patient understood and agreed to proceed. An informed consent document was signed by the patient, witnessed by a nurse, and placed in the patient's chart. Additionally, other treatment options including modalities, medications, and physical therapy were reviewed with the patient. After review of previous anaesthesic history and IV conscious sedation the patient was deemed safe to proceed with today?s procedure with IV conscious sedation as ASA class II designation. Safety time-out was performed to confirm patient ID, procedure to be performed and site of procedure. IV sedation was accomplished with a combination of 1mg of Versed administered by the RN after DO order, titrated to patient comfort during the course of the procedure while the patient remained responsive to all verbal commands. In the prone position, following sterile prep and drape of the lumbar region, the L5/S1 translaminar space was identified fluoroscopically. The skin was anesthetized via a 25-gauge, 1.5-inch needle with 1% lidocaine solution. At this point, a 22-gauge short bevel spinal needle was atraumatically introduced and advanced under fluoroscopic guidance into the region of the L5/S1 translaminar space. Depth was confirmed on lateral view. Radiological data, including multiple fluoroscopic views of the lumbar spine, reveal a spinal needle at the L5/S1 translaminar space. Lateral views then show placement of the needle in the epidural space. Subsequent views show contrast material flowing superiorly and inferiorly in the epidural space. No vascular or intrathecal uptake is observed. At this point, using loss of resistance technique with saline and air, the epidural space was entered. This was confirmed following negative aspiration with injection of approximately 1.5cc of Isovue 200, showing excellent epidural flow without vascular or intrathecal uptake. At this point, 1 cc of 1% lidoca ine solution combined with 2cc or 10mg of dexamethasone and 6mg of betamethasone was injected without incident. The patent tolerated the procedure without signs of symptoms of complications prior to transfer to the recovery area for further monitoring. The patient was then transferred to the recovery area where they were observed for an appropriate period of time after the injection. The patient reported a VAS score of 6 prior to the procedure and a post-procedure VAS of 0. POST OP INSTRUCTIONS The patient was provided a Pain Log to continue to record their response to the target-specific procedure prior to follow-up visit with their referring physician. Additionally, specific post-injection care instructions and a contact number to our office were provided if concerns arise regarding possible complications associated with the procedure are suspected.
== END 2023-01-25 11:50 | disposition home or self-care (01) ==
PROVIDERS: Family Provider Family Medicine; PCP Family Medicine; Referring Provider Physical Medicine & Rehabilitation; Visit Provider Physical Medicine & Rehabilitation
DX: M51.17 Intervertebral disc disorders with radiculopathy, lumbosacral region (principal); M48.07 Spinal stenosis, lumbosacral region
CPT/HCPCS: 62323; 99152; J0702; J1100; J2250; J3490

== ENCOUNTER 2023-09-30 11:08 | Emergency (ER) | payer OTHER, MEDICAID, SELFPAY ==
[2022-07-13 14:35] VITALS: BMI 29.2
[2023-09-30] VITALS (9 sets, daily range): BP systolic 131–208; BP diastolic 103–119; PULSE 70–108; RESP 18; TEMP 36.7–36.9; O2SAT 96–98; BMI 29.2
[2023-09-30 11:54] LABS: Add Manual Diff / Slide Review NO; Basophils Absolute Auto 0 /uL (0-100); Basophils Percent Auto 0.3 % (0-2); Eosinophils Absolute Auto 100 /uL (0-450); Eosinophils Percent Auto 0.7 % (2-4); Hematocrit 45.1 % (41-53); Hemoglobin 15.2 g/dL (13.5-17.5); Lymphocytes Absolute Auto 2000 /uL (1100-4500); Lymphocytes Percent Auto 15.9 % (25-40); Mean Corpuscular HGB Conc 33.7 % (30-36); Mean Corpuscular Hemoglobin 30.3 PG (26-34); Monocytes Absolute Auto 900 /uL (0-900); Monocytes Percent Auto 7.6 % (3-14); Neutrophils Absolute Auto 9300 /uL (1500-7000); Neutrophils Percent Auto 75.5 % (50-75); Platelet Count 234 X10^3/uL (150-400); Red Blood Cell Count 5.01 X10^6/uL (4.5-5.9); Red Cell Distribution Width 13.5 % (11.6-14.8); White Blood Cell Count 12.3 X10^3/uL (4.5-11.0)
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
[2023-09-30 12:06] LABS: Acetaminophen < 10 ug/mL (10-30); Alanine Aminotransferase 30 IU/L (<50); Albumin 4.1 g/dL (3.5-5.0); Albumin Globulin Ratio 1.4 (1.0-2.8); Alkaline Phosphatase 82 U/L (38-126); Aspartate Aminotransferase 29 IU/L (17-59); BUN Creatinine Ratio 30.4 (6-22); Bilirubin Total 0.7 mg/dL (0.2-1.3); Blood Urea Nitrogen 21 mg/dL (9-20); Calcium 8.7 mg/dL (8.4-10.2); Carbon Dioxide 25 mmol/L (22-32); Chloride 108 mmol/L (98-107); Estimated Glomerular Filt Rate > 60 mL/min (>60); Ethanol (ETOH) < 10 mg/dL; Globulin 2.9 g/dL (1.7-4.1); Glucose 106 mg/dL (80-110); HEMOLYSIS < 15 (0-50); Potassium 4.2 mmol/L (3.4-5.1); Salicylate < 1.0 mg/dL (<20); Sodium 138 mmol/L (137-145)
[2023-09-30] MEDS: SODIUM CHLORIDE 0.9% 1,000 ML 1000 ML IV (12:22)
[2023-09-30] MEDS: DEXAMETHASONE 10 MG/ML VIAL IV (12:22)
--- NOTE | 2023-09-30 12:22 | PC.NURSE ---
DR Fernández ordered that the pt can be reduced to low risk after further evaluation of pt.
[2023-09-30] MEDS: METOCLOPRAMIDE 10 MG/2 ML INJ IV (12:23)
[2023-09-30] MEDS: KETOROLAC 30 MG/ML VIAL 15 MG IV (12:24)
--- NOTE | 2023-09-30 12:42 | PC.NURSE ---
pt has had thoughts about harming himself because he has chronic pain and not because of depression. pt here in the department is a low risk
[2023-09-30 12:56] LABS: Thyroid Stimulating Hormone 1.78 uIU/mL (0.47-4.68)
[2023-09-30 13:46] LABS: Ictotest Urine Negative (Negative)
[2023-09-30 13:47] LABS: Ur Creatinine Normal (Normal); Ur Specific Gravity Normal (Normal); Urine Amphetamines Negative (Negative); Urine Barbiturates Negative (Negative); Urine Benzodiazepines Negative (Negative); Urine Cocaine Negative (Negative); Urine MDMA Negative (Negative); Urine Methadone Negative (Negative); Urine Methamphetamines Negative (Negative); Urine Opiates Negative (Negative); Urine Oxycodone Negative (Negative); Urine Phencyclidine Negative (Negative); Urine THC Positive (Negative); Urine Tricyclic Antidepressant Negative (Negative); Urine pH Normal (Normal)
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
== END 2023-09-30 14:40 | disposition home or self-care (01) ==
PROVIDERS: Emergency Provider Emergency Medicine; Family Provider Family Medicine
DX: G43.909 Migraine, unspecified, not intractable, without status migrainosus (principal)
CPT/HCPCS: 36415; 80053; 80305; 80320; 80329; 81003; 84439; 84443; 85025; 96374; 96375; 99284; G0480; J1100; J1885; J2765

== ENCOUNTER 2023-11-09 10:30 | Outpatient (RCR) | payer OTHER, MEDICAID, SELFPAY ==
[2022-07-13 14:35] VITALS: BMI 29.2
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
--- NOTE | 2023-06-30 14:24 | PT.OPPOC ---
Physical, Occupational & Speech Therapy At Current Diagnoses Other chronic pain (06/30/23) Chronic pain syndrome (06/30/23) Spondylolisthesis, lumbar region (06/30/23) Spondylosis without myelopathy or radiculopathy, lumbar region (06/30/23) Other intervertebral disc degeneration, lumbosacral region (06/30/23) Dorsalgia, unspecified (06/30/23) Difficulty in walking, not elsewhere classified (06/30/23) Unsteadiness on feet (06/30/23) Abnormal posture (06/30/23) Weakness (06/30/23) Visit Care Team Role Provider Type Bill Machado MD Attending Provider Physician Family Provider Primary Care Provider Referring Provider Specialty: Family Practice Address: [address] [place] [address] Email: [email or web address] Plan Of Care PT-OP-T Assessment and Plan Start: 06/16/23 13:28 Freq: Status: Active Protocol: Document 06/30/23 10:34 [facility] (Rec: 06/30/23 14:24 [facility] [id number]) Physical Therapy Assessment Rehab Potential Rehabilitation Potential Fair Evaluation Complexity Number of Personal Factors/Comorbidities 3 or More Number of Body Systems Impaired 4 or More Clinical Presentation at Evaluation Unstable Impairments Impairments Activity Tolerance,Balance, Functional Activities, Functional Mobility,Gait,Pain, Posture,ROM,Soft Tissue Mobility,Strength,Transfers Goals strength Short Term Goal (STG) Pt will be indep w/heP STG Duration 08/09 Sound Person Goal (LTG) Pt will score at least 3/5 on all planes LPM and at least 4/ 5 for B hip abd and ext to show improved hip and lumbar stability to improve activity tolerance LTG Duration 09/22/23 activities Impairment occ 1/2 mile but pays for it next day, max of 5 floors w/ stair climber Short Term Goal (STG) Pt will be able to walk at least 1/2 mile a day 5 days a week without feeling he pays for it then next day STG Duration 08/12 Shelter Goal (LTG) Pt will be able to return to walking 1 mile a few days a week and doing 10 floors on stair climber to allow inc functional ability tolerance LTG Duration 09/21 APRYL Impairment 29/50 Short Term Goal (STG) Pt will improve APRYL to at least 24/50 to show improved functional mobility STG Duration 08/14 Sound Person Goal (LTG) Pt will improve APRYL to at least 17/50 to show improved functional mobility LTG Duration 09/21 Assessment Summary Assessment Pt returns to PT (been about 1 year since last bout) for chronic pain of neck w/ALLEN, thoracic pain, and lumbar/ lumbosacral/SI pain. He has been compliant w/exercises and trying to walk and cont gym along w/working 2x/month w/DO and 1x/month now w/acupuncture . He is hoping to have PT help inc his mobility again and his functional activity tolerance. He does show dec core stability, impaired balancea nd weakness of BLEs and would benefit from skilled PT. Physical Therapy Plan Frequency and Duration Frequency of Treatment 1-2x/wk Duration of treatment (weeks) 12 Plan of Care Start Date 06/30/23 Plan of Care End Date 09/22/23 Therapeutic Interventions Therapeutic Interventions Balance Training,Gait Training ,Home Exercise Program,Joint Mobilizations,Manual Therapy, Neuromuscular Re-education, Patient/Caregiver Education, Self-Care/Home Management, Sensory Integration,Soft Tissue Mobilization,Taping, Therapeutic Activities, Therapeutic Exercises Modalities Cold Pack/Ice Massage,Electric Stimulation,Hot Packs, Ultrasound Next Visit Focus/Plan Next Note Type Treatment Note Next Visit Plan supine core progression, s/l hip abd quadruped cat/cow, nemesio pose ,KTC stretches manual: gentle soft tissue to back, gentle hip and innominate mobility and lumbar mobility Plan of Care Dates Plan of Care Start Date 06/30/23 Plan of Care End Date 09/22/23 Electronically Signed by: Cristina Lee, PT 06/30/23 [id number] If you are in agreement with this Plan of Care, please return a signed and dated copy. I have reviewed this Plan of Care and certify that the skilled therapy services above are required to meet the patient?s needs. Physician Signature Date Printed Name and Credentials Clinical Instructor Signature Printed Name and Credentials
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
--- NOTE | 2023-09-20 17:02 | PT.OPPOC ---
Physical, Occupational & Speech Therapy At [facility] 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/23) Other intervertebral disc degeneration, lumbosacral region (09/20/23) Dorsalgia, unspecified (09/20/23) Difficulty in walking, not elsewhere classified (09/20/23) Unsteadiness on feet (09/20/23) Abnormal posture (09/20/23) Weakness (09/20/23) Visit Care Team Role Provider Type Doctor MD Bgig Primary Care Provider Non-Staff Specialty: Medical Address: Phone: Fax: Email: Bill Machado MD Attending Provider Physician Family Provider Referring Provider Specialty: Family Practice Address: [address] [place] [address], [facility] Email: [email or web address] Plan Of Care PT-OP-T Assessment and Plan Start: 06/16/23 13:28 Freq: Status: Active Protocol: Document 09/20/23 16:06 [facility] (Rec: 09/20/23 18:34 [facility] [id number]) Physical Therapy Assessment Goals balance Impairment FGA 30; SLS 1 sec R, 3 sec L Short Term Goal (STG) Pt will be able to do SLS B for 5 sec to show improved balance STG Duration 10/24 Snf Goal (LTG) Pt will improved FGA score to at least 20/30 to show dec fall risk LTG Duration 11/22 strength Short Term Goal (STG) Pt will be indep w/heP STG Duration achieved-occ cues needed- advancing as able Pick Pack Worker Goal (LTG) Pt will score at least 3/5 on all planes LPM and at least 4/ 5 for B hip abd and ext to show improved hip and lumbar stability to improve activity tolerance 07/27-improving 09/19-improved LTG Duration 11/22 activities Impairment occ 1/2 mile but pays for it next day, max of 5 floors w/ stair climber Short Term Goal (STG) Pt will be able to walk at least 1/2 mile a day 5 days a week without feeling he pays for it then next day STG Duration achieved 07/26 Pick Pack Worker Goal (LTG) Pt will be able to return to walking 1 mile a few days a week and doing 10 floors on stair climber to allow inc functional ability tolerance 09/19-does .5 mile 2x/day-.5 mile at a time max; 2.5miles at a garden recently w/ standing/sit rest breaks- w/ some inclines. stair climber once in the last week w/8 floors- doing a lot of step ups. LTG Duration 11/22 APRYL Impairment Short Term Goal (STG) Pt will improve APRYL to at least 24/50 to show improved functional mobility 07/26-improved to /50 09/19-n/t STG Duration 10/09 Snf Goal (LTG) Pt will improve APRYL to at least /50 to show improved functional mobility LTG Duration 11/22 Assessment Summary Assessment Pt has made good progress w/PT and is moving w/greater ease and less LOB during walking around in clinic but with balance testing, shows high risk for falls. He has overall improved functional ability and has been able to resume more activity although he continues to have signfiicant chronic pain. pt would benefit from cont skilled PT to work on balance and gait and mobility and dec pain. Physical Therapy Plan Frequency and Duration Frequency of Treatment 1-2x/wk Duration of treatment (weeks) 8 Plan of Care Start Date 09/20/23 Plan of Care End Date 11/23/23 Therapeutic Interventions Therapeutic Interventions Balance Training,Gait Training ,Home Exercise Program,Joint Mobilizations,Manual Therapy, Neuromuscular Re-education, Patient/Caregiver Education, Self-Care/Home Management, Sensory Integration,Soft Tissue Mobilization,Taping, Therapeutic Activities, Therapeutic Exercises Modalities Cold Pack/Ice Massage,Electric Stimulation,Hot Packs, Ultrasound Next Visit Focus/Plan Next Note Type Treatment Note Next Visit Plan manaul to improve pain; work on balance activities and cont advance core strength Plan of Care Dates Plan of Care Start Date 09/20/23 Plan of Care End Date 11/23/23 Electronically Signed by: Cristina Lee, PT 09/21/23 0802 If you are in agreement with this Plan of Care, please return a signed and dated copy. I have reviewed this Plan of Care and certify that the skilled therapy services above are required to meet the patient?s needs. Physician Signature Date Printed Name and Credentials Clinical Instructor Signature Printed Name and Credentials
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
== END 2023-11-29 13:59 | disposition home or self-care (01) ==
LOC: PHYS 10:30
PROVIDERS: Family Provider Family Medicine; PCP Family Medicine; Referring Provider Family Medicine; Visit Provider Family Medicine
DX: M51.37 Other intervertebral disc degeneration, lumbosacral region (principal); M47.816 Spondylosis without myelopathy or radiculopathy, lumbar region; M43.16 Spondylolisthesis, lumbar region; M54.9 Dorsalgia, unspecified; G89.29 Other chronic pain; R53.1 Weakness; R29.3 Abnormal posture; R26.2 Difficulty in walking, not elsewhere classified
CPT/HCPCS: 97010; 97014; 97110; 97112; 97140; 97163; 97535; G0283

== ENCOUNTER 2023-11-22 10:53 | Emergency (ER) | payer OTHER, MEDICAID, SELFPAY ==
[2022-07-13 14:35] VITALS: BMI 29.2
[2023-11-22 10:59] VITALS: PULSE 91; O2SAT 96
[2023-11-22 11:00] VITALS: BP 141/91; PULSE 94; RESP 17; TEMP 36.8; O2SAT 95; BMI 29.2
[2023-11-22 11:02] VITALS: PULSE 93; RESP 16; O2SAT 95
--- NOTE | 2023-11-22 11:23 | ED_ITS ---
HPI - General Adult General Chief complaint: Back Pain/Injury Stated complaint: popping noise on spine, fall 3x Time Seen by Provider: 11/22/23 11:07 Source: patient Mode of arrival: Wheelchair History of Present Illness HPI narrative: 72-year-old male with chronic low back pain, status post lumbar surgery Dr. Gonzales Crespo in November 2021, also has had right-sided epidural steroid injections by Dr. Hayes December 2022, taking meloxicam, wean off of oxycodone 9 months ago, still taking meloxicam daily, was at his baseline this morning on wakening, felt a popping sensation in his left low back, no fall or twist or lifting, has increased low back pain, sensation that his left leg will give out, is able to ambulate, drove himself here. No incontinence of urine or stool. No fevers chills, no cough, no straining with urine. He denies frequency of urination, painful urination, CVA area back pain. He denies any neck pain, upper back, mid back pain. Related Data Home Medications Medication Instructions Recorded Confirmed meloxicam 15 mg tablet 15 mg PO DAILY 05/16/23 08/26/23 Previous Rx's Medication Instructions Recorded clobetasol 0.05 % topical cream 1 applic topical DAILY PRN skin 03/24/23 irritation #15 grams lisinopril 20 mg tablet 20 mg PO DAILY #90 tabs 03/24/23 amlodipine 5 mg tablet 5 mg PO DAILY #90 tabs 09/02/23 sumatriptan succinate 25 mg tablet 25 - 50 mg (1 - 2 x 25 mg) PO PRN 09/02/23 PRN Migraine Headache #60 tabs methocarbamol 500 mg tablet 500 mg PO TID 7 days #21 tabs 11/22/23 methocarbamol 500 mg tablet 500 mg PO TID 7 days #21 tabs 11/22/23 methylprednisolone 4 mg tablets in See Rx Instructions PO .COMPLEX 11/22/23 a dose pack (Medrol (Gregory)) #21 ea methylprednisolone 4 mg tablets in See Rx Instructions PO .COMPLEX 11/22/23 a dose pack (Medrol (Gregory)) #21 ea omeprazole 20 mg capsule,delayed 20 mg PO DAILY upper abdominal 11/22/23 release pain 30 days #30 caps Allergies Allergy/AdvReac Type Severity Reaction Status Date / Time No Known Drug Allergies Allergy Verified 11/22/23 11:09 Review of Systems Review of Systems Narrative: see HPI Patient History Medical History DDD (degenerative disc disease), 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 Sacral dysfunction Insomnia due to medical condition Fusion of spine, lumbosacral region Concussion Stress and adjustment reaction Chronic right shoulder pain Chronic neck pain Litigation Compression fracture of L4 vertebra Compression fracture of L1 lumbar vertebra Spondylolisthesis at L4-L5 level Migraine Bilateral leg cramps Cranial somatic dysfunction Upper extremity somatic dysfunction Left elbow pain Short leg syndrome, left, acquired Somatic dysfunction of lower extremity Segmental and somatic dysfunction of abdomen and other regions Sacral region somatic dysfunction Pelvic somatic dysfunction Lumbar region somatic dysfunction Thoracic region somatic dysfunction Cervical somatic dysfunction Hyperlipidemia Chronic pain syndrome Chronic back pain (~1970) Wound dehiscence, external operation Subcutaneous mass of back Numbness and tingling Low back pain Migraines Sciatica Arthritis HTN (hypertension) Surgical History Hx of laminectomy (11/09/18) Anesthesia Hx of shoulder surgery (~08/2019) History of back surgery (~05/2020) S/P excision of ganglion cyst Hx of tonsillectomy Hx of umbilical hernia repair (06/16/17) Family History Father Hypertension Mother History of heart disease Social History marital status: unknown household members: none occupational status: previously employed Smoking Status: Never smoker alcohol intake: current substance use type: marijuana Smoking Status: Never smoker alcohol intake frequency: a few times a week Substance Use Type: marijuana Exam Narrative Exam Narrative: GENERAL: Well-developed patient, in mild distress. HEAD: Atraumatic. Normocephalic. EYES: Pupils equal round and reactive. Extraocular motions intact. No scleral icterus. No injection or drainage. ENT: Nose without bleeding, purulent drainage. Throat without erythema, tonsillar hypertrophy or exudate. Airway patent. NECK: Trachea midline. Non tender CARDIOVASCULAR: Regular rate and rhythm without murmurs, gallops, or rubs. RESPIRATORY: Clear to auscultation. Breath sounds equal bilaterally. No wheezes, rales, or rhonchi. GASTROINTESTINAL: Abdomen soft, non-tender, nondistended. EXTREMITIES: No edema or joint tenderness. BACK: Nontender without deformity or crepitance. No flank tenderness. Well- healed midline lumbar scar. Some tenderness left paraspinal musculature without gross asymmetry or spasm or mass effect. No redness to the skin, no rash or vesicles. NEURO: AOx3. Nonfocal neuro exam. Straight leg raise left leg with low back pain at a proximally 30? active and passive, no radiation of pain to the sciatic groove or upper or lower leg. SKIN: No rash or erythema of visible areas Initial Vital Signs Initial Vital Signs: Vital Signs Pulse Rate 91 H 11/22/23 10:59 Pulse Oximetry 96 11/22/23 10:59 Course Orders Ordered: ED Orders 11/22/23 11:40 CT lumbar spine wo con Stat 11/22/23 13:37 MR lumbar spine wo/w con Stat 11/22/23 14:00 CBC Auto Diff [Complete Blood Count AUTO DIFF] Stat CMP [Comprehensive Metabolic Panel] Stat CRP [C-Reactive Protein Quant] Stat ESR [Erythrocyte Sedimentation Rate] Stat Discontinued Medications Dexamethasone (Dexamethasone 10 Mg/Ml Vial) 10 mg IM NOW ONE Stop: 11/22/23 11:45 Last Admin: 11/22/23 11:55 Dose: 10 mg Documented By: DEEPA Methocarbamol (Methocarbamol 500 Mg Tablet) 500 mg PO NOW ONE Stop: 11/22/23 11:47 Last Admin: 11/22/23 11:55 Dose: 500 mg Documented By: DEEPA Vital Signs Vital signs: Vital Signs - 8 hr 11/22/23 10:59 11/22/23 11:00 11/22/23 11:00 Temperature 98.2 F Pulse Rate 91 H 94 H Respiratory Rate 17 Blood Pressure 141/91 H 141/91 H Pulse Oximetry 96 95 Oxygen Delivery Method Room Air 11/22/23 11:00 11/22/23 11:02 11/22/23 11:30 Temperature Pulse Rate 94 H 93 H Respiratory Rate 16 Blood Pressure 158/101 H Pulse Oximetry 95 95 Oxygen Delivery Method Room Air 11/22/23 12:02 11/22/23 12:02 11/22/23 16:26 Temperature Pulse Rate 75 81 Respiratory Rate 14 20 Blood Pressure 159/96 H 168/91 H Pulse Oximetry 94 96 Oxygen Delivery Method Room Air Room Air Medical Decision Making Lab Data Lab results reviewed: Yes I reviewed the patient's lab results. 11/22/23 14:00 11/22/23 14:00 Labs: Lab Results 11/22/23 Range/Units 14:00 WBC 9.4 (4.5-11.0) X10^3/uL RBC 4.96 (4.5-5.9) X10^6/uL Hgb 15.0 (13.5-17.5) g/dL Hct 44.6 (41-53) % MCV 89.8 (80-100) fL MCH 30.3 (26-34) PG MCHC 33.7 (30-36) % RDW 13.6 (11.6-14.8) % Plt Count 258 (150-400) X10^3/uL Neut % (Auto) 86.0 H (50-75) % Lymph % (Auto) 11.1 L (25-40) % Duchesne % (Auto) 2.0 L (3-14) % Eos % (Auto) 0.4 L (2-4) % Baso % (Auto) 0.5 (0-2) % Neut # (Auto) 8100 H (9979-8459) /uL Lymph # (Auto) 1000 L (0346-8510) /uL Duchesne # (Auto) 200 (0-900) /uL Eos # (Auto) 0 (0-450) /uL Baso # (Auto) 0 (0-100) /uL ESR 5 (0-15) MM/HR Sodium 137 (137-145) mmol/L Potassium 4.1 (3.4-5.1) mmol/L Chloride 105 (98-107) mmol/L Carbon Dioxide 22 (22-32) mmol/L BUN 26 H (9-20) mg/dL Creatinine 0.77 (0.66-1.25) mg/dL Estimated GFR > 60 (>60) mL/min BUN/Creatinine Ratio 33.8 H (6-22) Glucose 137 H (80-110) mg/dL Calcium 9.1 (8.4-10.2) mg/dL Total Bilirubin 0.6 (0.2-1.3) mg/dL AST 31 (17-59) IU/L ALT 34 (<50) IU/L Alkaline Phosphatase 78 (38-126) U/L C-Reactive Protein < 0.5 (<1.0) mg/dL Total Protein 7.3 (6.3-8.2) g/dL Albumin 4.5 (3.5-5.0) g/dL Globulin 2.8 (1.7-4.1) g/dL Albumin/Globulin Ratio 1.6 (1.0-2.8) Imaging Data CT scan lumbar spine: Radiologist's Impression: [address] [address] [address] Scan Report Signed Patient: Shan To MR#: [id number] : 1950 Acct:[id number] Age/Sex: 72 / M Date of Service: 11/22/23 Loc: ED Accession Number: [id number] Procedure: CT lumbar spine wo con Ordering Provider: Mathew Dickerson MD PROCEDURE: CT LUMBAR SPINE WO CON INDICATIONS: left low back pain TECHNIQUE: Noncontrast 3 mm thick sections acquired from the T12 level to the sacrum. Sagittal and coronal reformats were constructed. For radiation dose reduction, the following was used: automated exposure control. [facility], [facility] LUMBAR SP[facility] 2 OR 3 VIEWS, 11/26/2022, 8:40. [facility], , MR LUMBAR SPINE WO CON, 10/26/2022, 17:16. FINDINGS: Image quality: Excellent. Bones: L4-S1 TLIF postsurgical changes. Orthopedic hardware is in expected position. Orthopedic hardware is intact. Lucencies noted adjacent to the S1 transpedicular screws concerning for loosening or infection. There is normal bony alignment. Chronic L1 compression fracture stable compared to prior studies. No acute vertebral body compression fractures. No suspicious lytic or blastic bony lesions. No pars defects. Spine degenerative disc disease and facet arthropathy. No severe central canal stenosis. Possible severe bilateral L5-S1 neural foraminal narrowing. Soft tissues: No retroperitoneal masses or hematomas. Visualized aorta is normal in caliber. IMPRESSION: L4-S1 TLIF. Lucencies noted adjacent to the S1 transpedicular screws concerning for loosening or infection. Multilevel degenerative disc disease. Multilevel facet arthropathy. No severe central canal stenosis. Possible severe bilateral L5-S1 neural foraminal narrowing. Consider nonemergent MRI of the lumbar spine. No fracture. No acute osseous lesion. If symptoms and/or clinical suspicion for pathology persists, evaluation with MRI should be considered for further assessment. Dictated by: Jammie Brower MD, PhD on 11/22/2023 at 13:08 Approved by: Jammie Brower MD, PhD on 11/22/2023 at 13:12 MRI lumbar spine without and with contrast: Radiologist's Impression: [address] [address] Magnetic Resonance Report Signed Patient: Shan To MR#: [id number] : 1950 Acct:[id number] Age/Sex: 72 / M Date of Service: 11/22/23 Loc: ED Accession Number: [id number] Procedure: MR lumbar spine wo/w con Ordering Provider: Mathew Dickerson MD PROCEDURE: MR LUMBAR SPINE WO/W CON INDICATIONS: Possible infection/stenosis TECHNIQUE: Noncontrast sagittal T1 spin echo and T2 fast spin echo, sagittal STIR, axial T1 and T2 fast spin echo through the lumbar spine. In cases with scoliosis, additional coronal T2 fast spin echo may be performed. After the administration of contrast, sagittal and axial T1 spin echo with fat saturation through the lumbar spine. COMPARISON: [facility], , MR LUMBAR SPINE WO CON, 10/26/2022, 17:16. FINDINGS: Image quality: Excellent. Alignment and curvature: Straightening of the normal lumbar lordosis. Mild retrolisthesis of L1 on L2, L2 on L3 and L3 on L4. Grade 1 anterolisthesis of T12 on L1. Marrow: L4 through S1 posterior spinal fixation and discectomy. Stable anterior wedging of the L1 vertebral body. Marrow is of normal overall signal. No acute vertebral body compression fractures. No suspicious marrow enhancement. Spinal cord: Conus medullaris terminates at the L1 level. Visualized spinal cord demonstrates normal signal, without suspicious enhancement. Paraspinous soft tissues: No paravertebral masses or abnormal enhancement. Simple appearing right renal cyst. T12-L1: Disc desiccation and mild height loss. Facet arthropathy. Mild to moderate central canal stenosis. No neural foraminal stenosis. L1-L2: Disc desiccation and mild height loss. Mild diffuse disc bulge. Facet arthropathy and thickening of ligamentum flavum. Mild central canal stenosis. Mild bilateral neural foraminal stenosis. Stable. L2-L3: Disc desiccation and mild diffuse disc bulge. Facet arthropathy and thickening of ligamentum flavum. Moderate neural foraminal stenosis is mildly progressed. Mild bilateral neural foraminal stenosis is stable. L3-L4: Disc desiccation and mild height loss. Diffuse disc bulge. Facet arthropathy and thickening of ligamentum flavum. Moderate central canal stenosis appears similar to prior. Mild bilateral neural foraminal stenosis is stable. L4-L5: Postoperative changes. No central canal stenosis. Moderate bilateral neural foraminal stenosis is stable. L5-S1: Postoperative changes. No central canal stenosis. Severe right and mild left neural foraminal stenosis is redemonstrated. IMPRESSION: 1. Status post L4 through S1 posterior spinal fixation and discectomy. Hardware is better evaluated on same-day CT scan. No organized fluid collections. No epidural fluid collections, however hardware artifact limits evaluation on postcontrast sequences. 2. Redemonstration of multilevel degenerative changes of the lumbar spine. Progression of now moderate central canal stenosis at L2-L3. Otherwise, degenerative changes are stable compared to prior, as described above. Dictated by: Angel Cruz M.D. on 11/22/2023 at 15:24 Approved by: Angel Cruz M.D. on 11/22/2023 at 15:31 [facility] Narrative Medical decision making narrative: 72-year-old with chronic back pain, exacerbation of symptoms left-sided this morning with popping sensation, no fall twist or injuries recalled. No current symptoms suggestive Taking daily oral Meloxicam, had weaned off of oral opiates, would prefer not to have opiate therapies, in the past, has responded to steroids, initially wanted oral therapies only, then injection of steroid, does not want IV for now, okay with oral muscle relaxant. He requests imaging. CT lumbar spine imaging ordered. IM Decadron. Declines Toradol. P.o. Robaxin. CT lumbar spine shows L4-S1 internal fixation, lucencies noted adjacent to the S1 transpedicular screws, radiologist's concern for loosening/infection. Multilevel DJD, multilevel facet arthropathy, no severe central canal stenosis, severe bilateral L5-S1 neuroforaminal narrowing. Consider MRI. We will send labs including CBC, CMP, CRP, ESR. Query medical record to ensure ORIF hardware is MRI compatible, though likely so. Possible MRI lumbar spine. Copy of CT report given to patient. Patient reports that he had follow up MRI for his injections, that would have been after surgery, hardware must be MRI compatible. Discussed with technician telecommunication systems. MRI lumbar spine without and with contrast ordered. Patient agreeable. MRI lumbar spine. Impressions: ?Status post L4 through S1 posterior spinal fixation and diskectomy. Hardware has been evaluated in the same day CT scan. No organized fluid collections. No epidural fluid collections, however hardware artifact limits evaluation on postcontrast sequences. Redemonstration of multilevel degenerative changes of the lumbar spine. Progression of now moderate central canal stenosis at L2-L3. Otherwise degenerative changes are stable compared to prior as described above.? See radiology report. Copy of MR report given to patient. Follow up advised with his [facility] spine surgeon Dr. Yates. He had prior positive response to steroids and muscle relaxants, prescription for further steroid tapering schedule Medrol Dosepak sent to his pharmacy, as well as additional days' supply methocarbamol muscle relaxant. Advised to continue his meloxicam. With steroid addition to his NSAID suggested he consider use of [id number] antacid such as famotidine/omeprazole until his at least finish with the steroid tapering schedule. He was improved, ambulating in the room. Discharged home, follow up with his spine surgeon as above. Return precautions discussed Critical Care Time Critical Care Time Critical Care Time: Yes Total Critical Care Time: 31 Attestation: The high probability of a clinically significant, sudden or life threatening deterioration of the [spinal, musculoskeletal, neurologic] system(s) required my full and direct attention, intervention and personal management. The aggregate critical care time was [31] minutes. This time is in addition to time spent performing reported procedures but includes the following: [x] Data Review and interpretation [x] Patient assessment and monitoring of vital signs [x] Documentation [x] Medication orders and management Discharge Plan Departure Patient Disposition: Home Clinical Impression: Exacerbation of chronic back pain Activity Restrictions/Additional Instructions: Exacerbation of chronic low back pain, left-sided predominant symptoms. CT scan of the lumbar spine was suspicious for inflammatory infectious change, with recommendation for MRI imaging. No fever on exam. Labs were sent and did not support inflammatory process. MRI of the lumbar spine was performed, showing prior surgical fixation and discectomy changes, no suspicious changes of infection. Multilevel degenerative changes were again noted, there was some moderate canal stenosis at L2-L3 region mentioned. Follow up with your spine surgeon Dr. Yates. You had prior response to steroids, prescription sent to your pharmacy, also trial of muscle relaxant to use as needed. Continue use of your meloxicam. Along with steroid use your meloxicam could bothering her stomach, consider use of antacid [id number] (Pepcid or omeprazole) while on steroids. Return earlier to this/nearest emergency department for any change worsening symptoms or any concerns prior Prescriptions: New methocarbamol 500 mg tablet 500 mg PO TID 7 Days Qty: 21 0RF methylprednisolone [Medrol (Gregory)] 4 mg tablets,dose pack See Rx Instructions .ROUTE .COMPLEX Qty: 21 0RF Rx Instructions: orally per package directions; 6 tablets 1st day, 5 tablets 2nd day, 4 tablets 3rd day, 3 tablets 4th day, 2 tablets 5th day, 1 tablet on 6th day methylprednisolone [Medrol (Gregory)] 4 mg tablets,dose pack See Rx Instructions PO .COMPLEX Qty: 21 0RF Rx Instructions: orally per package directions; 6 tablets 1st day, 5 tablets 2nd day, 4 tablets 3rd day, 3 tablets 4th day, 2 tablets 5th day, 1 tablet on 6th day methocarbamol 500 mg tablet 500 mg PO TID 7 Days Qty: 21 0RF omeprazole 20 mg capsule,delayed release(DR/EC) 20 mg PO DAILY 30 Days Qty: 30 0RF No Action lisinopril 20 mg tablet 20 mg PO DAILY Qty: 90 3RF clobetasol 0.05 % cream 1 applic topical DAILY PRN (Reason: skin irritation) Qty: 15 3RF amlodipine 5 mg tablet 5 mg PO DAILY Qty: 90 1RF sumatriptan succinate 25 mg tablet 25 - 50 mg PO PRN PRN (Reason: Migraine Headache) Qty: 60 0RF meloxicam 15 mg tablet 15 mg PO DAILY Referrals: Bill Machado MD [Primary Care Provider] - Roland Yates MD [Physician] - Stand Alone Forms: Patient Portal/API
[2023-11-22 11:30] VITALS: BP 158/101
--- NOTE | 2023-11-22 11:40 | DI.CT.S_ITS ---
PROCEDURE: CT LUMBAR SPINE WO CON INDICATIONS: left low back pain TECHNIQUE: Noncontrast 3 mm thick sections acquired from the T12 level to the sacrum. Sagittal and coronal reformats were constructed. For radiation dose reduction, the following was used: automated exposure control. COMPARISON: [facility], CR, XR LUMBAR SPINE 2 OR 3 VIEWS, 11/26/2022, 8:40. [facility], MR, MR LUMBAR SPINE WO CON, 10/26/2022, 17:16. FINDINGS: Image quality: Excellent. Bones: L4-S1 TLIF postsurgical changes. Orthopedic hardware is in expected position. Orthopedic hardware is intact. Lucencies noted adjacent to the S1 transpedicular screws concerning for loosening or infection. There is normal bony alignment. Chronic L1 compression fracture stable compared to prior studies. No acute vertebral body compression fractures. No suspicious lytic or blastic bony lesions. No pars defects. Spine degenerative disc disease and facet arthropathy. No severe central canal stenosis. Possible severe bilateral L5-S1 neural foraminal narrowing. Soft tissues: No retroperitoneal masses or hematomas. Visualized aorta is normal in caliber. IMPRESSION: L4-S1 TLIF. Lucencies noted adjacent to the S1 transpedicular screws concerning for loosening or infection. Multilevel degenerative disc disease. Multilevel facet arthropathy. No severe central canal stenosis. Possible severe bilateral L5-S1 neural foraminal narrowing. Consider nonemergent MRI of the lumbar spine. No fracture. No acute osseous lesion. If symptoms and/or clinical suspicion for pathology persists, evaluation with MRI should be considered for further assessment. Dictated by: Jammie Brower MD, PhD on 11/22/2023 at 13:08 Approved by: Jammie Brower MD, PhD on 11/22/2023 at 13:12
[2023-11-22] MEDS: methocarbamoL 500 MG TABLET PO (11:55)
[2023-11-22] MEDS: DEXAMETHASONE 10 MG/ML VIAL IM (11:55)
[2023-11-22 12:02] VITALS: BP 159/96; PULSE 75; RESP 14; O2SAT 94
--- NOTE | 2023-11-22 13:37 | DI.MRI.S_ITS ---
PROCEDURE: MR LUMBAR SPINE WO/W CON INDICATIONS: Possible infection/stenosis TECHNIQUE: Noncontrast sagittal T1 spin echo and T2 fast spin echo, sagittal STIR, axial T1 and T2 fast spin echo through the lumbar spine. In cases with scoliosis, additional coronal T2 fast spin echo may be performed. After the administration of contrast, sagittal and axial T1 spin echo with fat saturation through the lumbar spine. COMPARISON: [facility], MR, MR LUMBAR SPINE WO CON, 10/26/2022, 17:16. FINDINGS: Image quality: Excellent. Alignment and curvature: Straightening of the normal lumbar lordosis. Mild retrolisthesis of L1 on L2, L2 on L3 and L3 on L4. Grade 1 anterolisthesis of T12 on L1. Marrow: L4 through S1 posterior spinal fixation and discectomy. Stable anterior wedging of the L1 vertebral body. Marrow is of normal overall signal. No acute vertebral body compression fractures. No suspicious marrow enhancement. Spinal cord: Conus medullaris terminates at the L1 level. Visualized spinal cord demonstrates normal signal, without suspicious enhancement. Paraspinous soft tissues: No paravertebral masses or abnormal enhancement. Simple appearing right renal cyst. T12-L1: Disc desiccation and mild height loss. Facet arthropathy. Mild to moderate central canal stenosis. No neural foraminal stenosis. L1-L2: Disc desiccation and mild height loss. Mild diffuse disc bulge. Facet arthropathy and thickening of ligamentum flavum. Mild central canal stenosis. Mild bilateral neural foraminal stenosis. Stable. L2-L3: Disc desiccation and mild diffuse disc bulge. Facet arthropathy and thickening of ligamentum flavum. Moderate neural foraminal stenosis is mildly progressed. Mild bilateral neural foraminal stenosis is stable. L3-L4: Disc desiccation and mild height loss. Diffuse disc bulge. Facet arthropathy and thickening of ligamentum flavum. Moderate central canal stenosis appears similar to prior. Mild bilateral neural foraminal stenosis is stable. L4-L5: Postoperative changes. No central canal stenosis. Moderate bilateral neural foraminal stenosis is stable. L5-S1: Postoperative changes. No central canal stenosis. Severe right and mild left neural foraminal stenosis is redemonstrated. IMPRESSION: 1. Status post L4 through S1 posterior spinal fixation and discectomy. Hardware is better evaluated on same-day CT scan. No organized fluid collections. No epidural fluid collections, however hardware artifact limits evaluation on postcontrast sequences. 2. Redemonstration of multilevel degenerative changes of the lumbar spine. Progression of now moderate central canal stenosis at L2-L3. Otherwise, degenerative changes are stable compared to prior, as described above. Dictated by: Angel Cruz M.D. on 11/22/2023 at 15:24 Approved by: Angel Cruz M.D. on 11/22/2023 at 15:31
[2023-11-22 14:15] LABS: Add Manual Diff / Slide Review NO; Basophils Absolute Auto 0 /uL (0-100); Basophils Percent Auto 0.5 % (0-2); Eosinophils Absolute Auto 0 /uL (0-450); Eosinophils Percent Auto 0.4 % (2-4); Hematocrit 44.6 % (41-53); Lymphocytes Absolute Auto 1000 /uL (1100-4500); Lymphocytes Percent Auto 11.1 % (25-40); Mean Corpuscular HGB Conc 33.7 % (30-36); Mean Corpuscular Hemoglobin 30.3 PG (26-34); Mean Corpuscular Volume 89.8 fL (80-100); Monocytes Absolute Auto 200 /uL (0-900); Neutrophils Absolute Auto 8100 /uL (1500-7000); Platelet Count 258 X10^3/uL (150-400); Red Blood Cell Count 4.96 X10^6/uL (4.5-5.9); Red Cell Distribution Width 13.6 % (11.6-14.8); White Blood Cell Count 9.4 X10^3/uL (4.5-11.0)
[2023-11-22 14:28] LABS: Alanine Aminotransferase 34 IU/L (<50); Albumin 4.5 g/dL (3.5-5.0); Albumin Globulin Ratio 1.6 (1.0-2.8); Alkaline Phosphatase 78 U/L (38-126); Aspartate Aminotransferase 31 IU/L (17-59); BUN Creatinine Ratio 33.8 (6-22); Bilirubin Total 0.6 mg/dL (0.2-1.3); Blood Urea Nitrogen 26 mg/dL (9-20); Calcium 9.1 mg/dL (8.4-10.2); Carbon Dioxide 22 mmol/L (22-32); Chloride 105 mmol/L (98-107); Estimated Glomerular Filt Rate > 60 mL/min (>60); Globulin 2.8 g/dL (1.7-4.1); Glucose 137 mg/dL (80-110); HEMOLYSIS 16 (0-50); Potassium 4.1 mmol/L (3.4-5.1); Sodium 137 mmol/L (137-145); Total Protein 7.3 g/dL (6.3-8.2)
[2023-11-22 14:30] LABS: C-Reactive Protein Quant < 0.5 mg/dL (<1.0)
[2023-11-22 14:59] LABS: Erythrocyte Sedimentation Rate 5 MM/HR (0-15)
[2023-11-22 16:26] VITALS: BP 168/91; PULSE 81; RESP 20; O2SAT 96
== END 2023-11-22 16:23 | disposition home or self-care (01) ==
PROVIDERS: Emergency Provider Emergency Medicine; Family Provider Family Medicine; PCP Family Medicine
DX: M54.50 Low back pain, unspecified (principal); Z79.899 Other long term (current) drug therapy
CPT/HCPCS: 36415; 72131; 72158; 80053; 85025; 85651; 86140; 96372; 99284; A9579; J1100

== ENCOUNTER 2023-11-30 16:26 | Emergency (ER) | payer OTHER, MEDICAID, SELFPAY ==
[2022-07-13 14:35] VITALS: BMI 29.2
[2023-11-30] VITALS (9 sets, daily range): BP systolic 137–165; BP diastolic 85–99; PULSE 62–83; RESP 14–58; TEMP 36.8; O2SAT 94–97; BMI 29.0
--- NOTE | 2023-11-30 16:31 | EKG_ITS ---
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
--- NOTE | 2023-11-30 16:32 | DI.RAD.S_ITS ---
PROCEDURE: XR CHEST 1V INDICATIONS: chest pain TECHNIQUE: One view of the chest was acquired. COMPARISON: None. FINDINGS: The heart size and cardiomediastinal silhouette are within normal limits. There is no focal lung consolidation, pneumothorax, or pleural effusion. No acute, displaced rib fractures. IMPRESSION: No acute cardiothoracic process. Dictated by: Hugo Davis M.D. on 11/30/2023 at 17:21 Approved by: Hugo Davis M.D. on 11/30/2023 at 17:24
[2023-11-30 16:48] LABS: Add Manual Diff / Slide Review NO; Basophils Absolute Auto 100 /uL (0-100); Basophils Percent Auto 0.6 % (0-2); Eosinophils Absolute Auto 100 /uL (0-450); Eosinophils Percent Auto 0.9 % (2-4); Hematocrit 44.5 % (41-53); Hemoglobin 15.1 g/dL (13.5-17.5); Lymphocytes Absolute Auto 3500 /uL (1100-4500); Lymphocytes Percent Auto 32.7 % (25-40); Mean Corpuscular HGB Conc 33.9 % (30-36); Mean Corpuscular Hemoglobin 30.7 PG (26-34); Mean Corpuscular Volume 90.4 fL (80-100); Monocytes Absolute Auto 1000 /uL (0-900); Monocytes Percent Auto 8.9 % (3-14); Neutrophils Absolute Auto 6200 /uL (1500-7000); Neutrophils Percent Auto 56.9 % (50-75); Platelet Count 296 X10^3/uL (150-400); Red Blood Cell Count 4.92 X10^6/uL (4.5-5.9); Red Cell Distribution Width 13.6 % (11.6-14.8); White Blood Cell Count 10.8 X10^3/uL (4.5-11.0)
[2023-11-30 16:52] LABS: INR 0.9 (0.9-1.3); Prothrombin Time 10.7 SECONDS (9.4-12.5)
[2023-11-30 16:55] LABS: PTT Partial Thromboplastin Tim 31 SECONDS (25.1-36.5)
[2023-11-30 16:58] LABS: Alanine Aminotransferase 31 IU/L (<50); Albumin Globulin Ratio 1.3 (1.0-2.8); Alkaline Phosphatase 79 U/L (38-126); Aspartate Aminotransferase 32 IU/L (17-59); Bilirubin Total 0.5 mg/dL (0.2-1.3); Blood Urea Nitrogen 30 mg/dL (9-20); Carbon Dioxide 26 mmol/L (22-32); Chloride 104 mmol/L (98-107); Creatine Kinase 91 U/L (55-170); Estimated Glomerular Filt Rate > 60 mL/min (>60); Glucose 91 mg/dL (80-110); HEMOLYSIS < 15 (0-50); Lipase 101 U/L (23-300); Magnesium 2.6 mg/dL (1.6-2.3); Potassium 3.8 mmol/L (3.4-5.1); Sodium 136 mmol/L (137-145)
[2023-11-30 17:10] LABS: NT-proBNP (BNP-Adult 18+) 102 pg/mL (<125); Troponin I < 0.012 ng/mL (0.01-0.034)
[2023-11-30] MEDS: ASPIRIN 81 MG CHEW TAB 324 MG PO (17:25)
--- NOTE | 2023-11-30 18:47 | ED_ITS ---
HPI - Chest Pain General Chief Complaint: Chest Pain Stated Complaint: chest pain Time Seen by Provider: 11/30/23 17:59 Source: patient Mode of arrival: Ambulatory History of Present Illness HPI narrative: 73Year old male presents for L sided CP that began around 1230p today. Patient states that he finished his exercise at the gym and was going home when he felt the pain. Reports shortness of breath associated. Currently pain free, but decided to come to the emergency department for assessment. Denies history of coronary disease. Related Data Home Medications Medication Instructions Recorded Confirmed meloxicam 15 mg tablet 15 mg PO DAILY 05/16/23 11/30/23 amlodipine 5 mg tablet 5 mg PO DAILY 11/30/23 11/30/23 Previous Rx's Medication Instructions Recorded clobetasol 0.05 % topical cream 1 applic topical DAILY PRN skin 03/24/23 irritation #15 grams lisinopril 20 mg tablet 20 mg PO DAILY #90 tabs 03/24/23 amlodipine 5 mg tablet 5 mg PO DAILY #90 tabs 09/02/23 sumatriptan succinate 25 mg tablet 25 - 50 mg (1 - 2 x 25 mg) PO PRN 09/02/23 PRN Migraine Headache #60 tabs methylprednisolone 4 mg tablets in See Rx Instructions PO .COMPLEX 11/22/23 a dose pack (Medrol (Gregory)) #21 ea methylprednisolone 4 mg tablets in See Rx Instructions PO .COMPLEX 11/22/23 a dose pack (Medrol (Gregory)) #21 ea omeprazole 20 mg capsule,delayed 20 mg PO DAILY upper abdominal 11/22/23 release pain 30 days #30 caps Allergies Allergy/AdvReac Type Severity Reaction Status Date / Time No Known Drug Allergies Allergy Verified 11/30/23 16:31 Patient History Medical History DDD (degenerative disc disease), 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 Sacral dysfunction Insomnia due to medical condition Fusion of spine, lumbosacral region Concussion Stress and adjustment reaction Chronic right shoulder pain Chronic neck pain Litigation Compression fracture of L4 vertebra Compression fracture of L1 lumbar vertebra Spondylolisthesis at L4-L5 level Migraine Bilateral leg cramps Cranial somatic dysfunction Upper extremity somatic dysfunction Left elbow pain Short leg syndrome, left, acquired Somatic dysfunction of lower extremity Segmental and somatic dysfunction of abdomen and other regions Sacral region somatic dysfunction Pelvic somatic dysfunction Lumbar region somatic dysfunction Thoracic region somatic dysfunction Cervical somatic dysfunction Hyperlipidemia Chronic pain syndrome Chronic back pain (~1970) Wound dehiscence, external operation Subcutaneous mass of back Numbness and tingling Low back pain Migraines Sciatica Arthritis HTN (hypertension) Surgical History Hx of laminectomy (11/09/18) Anesthesia Hx of shoulder surgery (~08/2019) History of back surgery (~05/2020) S/P excision of ganglion cyst Hx of tonsillectomy Hx of umbilical hernia repair (06/16/17) Family History Father Hypertension Mother History of heart disease Social History marital status: unknown household members: none occupational status: previously employed Smoking Status: Never smoker alcohol intake: current substance use type: marijuana Smoking Status: Never smoker alcohol intake frequency: a few times a week Substance Use Type: marijuana Exam Initial Vital Signs Initial Vital Signs: Vital Signs Temperature 98.2 F 11/30/23 16:29 Pulse Rate 83 11/30/23 16:29 Respiratory Rate 18 11/30/23 16:29 Blood Pressure 147/90 H 11/30/23 16:29 Pulse Oximetry 94 11/30/23 16:29 Oxygen Delivery Method Room Air 11/30/23 16:29 Const: Awake, alert, no acute distress, nontoxic appearing Cardiac: regular rate, regular rhythm, generalized left-sided tenderness to palpation without crepitus RESP: unlabored, clear bilaterally, no wheezing Skin: Warm, Dry, intact, no rashes Neuro: AO x3, CN II-XII grossly intact, moves all extremities Course Orders Ordered: ED Orders 11/30/23 18:59 Trop I [Troponin I] Stat Discontinued Medications Aspirin (Aspirin 81 Mg Chew Tab) 324 mg PO NOW ONE Stop: 11/30/23 16:33 Last Admin: 11/30/23 17:25 Dose: 324 mg Documented By: ROCKY Vital Signs Vital signs: Vital Signs - 8 hr 11/30/23 18:57 11/30/23 18:58 11/30/23 18:58 Pulse Rate 69 62 Respiratory Rate 18 16 Blood Pressure 165/99 H Pulse Oximetry 97 96 11/30/23 19:00 11/30/23 19:00 11/30/23 19:32 Pulse Rate 64 79 Respiratory Rate 14 58 H Blood Pressure 160/95 H Pulse Oximetry 96 96 MDM - Chest Pain Differential Diagnosis Differential diagnosis: Likely fracture of rib, atypical chest pain and costochondritis Lab Data 11/30/23 16:35 11/30/23 16:35 Labs: Lab Results 11/30/23 11/30/23 Range/Units 16:35 18:59 WBC 10.8 (4.5-11.0) X10^3/uL RBC 4.92 (4.5-5.9) X10^6/uL Hgb 15.1 (13.5-17.5) g/dL Hct 44.5 (41-53) % MCV 90.4 (80-100) fL MCH 30.7 (26-34) PG MCHC 33.9 (30-36) % RDW 13.6 (11.6-14.8) % Plt Count 296 (150-400) X10^3/uL Neut % (Auto) 56.9 (50-75) % Lymph % (Auto) 32.7 (25-40) % [place] % (Auto) 8.9 (3-14) % Eos % (Auto) 0.9 L (2-4) % Baso % (Auto) 0.6 (0-2) % Neut # (Auto) 6200 (4305-1377) /uL Lymph # (Auto) 3500 (3912-7188) /uL [place] # (Auto) 1000 H (0-900) /uL Eos # (Auto) 100 (0-450) /uL Baso # (Auto) 100 (0-100) /uL PT 10.7 (9.4-12.5) SECONDS INR 0.9 (0.9-1.3) APTT 31 (25.1-36.5) SECONDS Sodium 136 L (137-145) mmol/L Potassium 3.8 (3.4-5.1) mmol/L Chloride 104 (98-107) mmol/L Carbon Dioxide 26 (22-32) mmol/L BUN 30 H (9-20) mg/dL Creatinine 0.81 (0.66-1.25) mg/dL Estimated GFR > 60 (>60) mL/min BUN/Creatinine Ratio 37.0 H (6-22) Glucose 91 (80-110) mg/dL Calcium 9.0 (8.4-10.2) mg/dL Magnesium 2.6 H (1.6-2.3) mg/dL Total Bilirubin 0.5 (0.2-1.3) mg/dL AST 32 (17-59) IU/L ALT 31 (<50) IU/L Alkaline Phosphatase 79 (38-126) U/L Total Creatine Kinase 91 (55-170) U/L Troponin I < 0.012 < 0.012 (0.01-0.034) ng/mL NT-Pro-B Natriuret Pep 102 (<125) pg/mL Total Protein 7.0 (6.3-8.2) g/dL Albumin 4.0 (3.5-5.0) g/dL Globulin 3.0 (1.7-4.1) g/dL Albumin/Globulin Ratio 1.3 (1.0-2.8) Lipase 101 (23-300) U/L ECG Data Interpretation: Normal sinus rhythm at 83 beats per minute. Normal MN, no ST T wave changes, no STEMI MDM Narrative Medical decision making narrative: Well-appearing patient with episode of left-sided chest pain earlier today. States that it was after he had finished his work out and was on his way home. Pain-free in bed, left-sided chest pain reproduced with palpation. EKG sinus rhythm without concerning acute findings. Chest x-ray negative for acute findings. Laboratory work reviewed, unremarkable. Troponin undetectable x2. Unlikely to be ACS at this time. Patient counseled on lab and imaging findings, patient requesting to leave to go home. Discharge Plan Departure Patient Disposition: Home Clinical Impression: Chest pain Instructions: DI for Chest Pain Activity Restrictions/Additional Instructions: Your labs, EKG, chest X ray were normal. On your exam I did notice that the left side of your chest wall was tender when I pressed on it. This could be musculoskeletal, and also contributory to your chest pain. Follow up with your primary care doctor. Continue to take all of your medications as prescribed. Prescriptions: No Action lisinopril 20 mg tablet 20 mg PO DAILY Qty: 90 3RF clobetasol 0.05 % cream 1 applic topical DAILY PRN (Reason: skin irritation) Qty: 15 3RF amlodipine 5 mg tablet 5 mg PO DAILY Qty: 90 1RF sumatriptan succinate 25 mg tablet 25 - 50 mg PO PRN PRN (Reason: Migraine Headache) Qty: 60 0RF methylprednisolone [Medrol (Gregory)] 4 mg tablets,dose pack See Rx Instructions .ROUTE .COMPLEX Qty: 21 0RF Rx Instructions: orally per package directions; 6 tablets 1st day, 5 tablets 2nd day, 4 tablets 3rd day, 3 tablets 4th day, 2 tablets 5th day, 1 tablet on 6th day methylprednisolone [Medrol (Gregory)] 4 mg tablets,dose pack See Rx Instructions PO .COMPLEX Qty: 21 0RF Rx Instructions: orally per package directions; 6 tablets 1st day, 5 tablets 2nd day, 4 tablets 3rd day, 3 tablets 4th day, 2 tablets 5th day, 1 tablet on 6th day omeprazole 20 mg capsule,delayed release(DR/EC) 20 mg PO DAILY 30 Days Qty: 30 0RF amlodipine 5 mg tablet 5 mg PO DAILY meloxicam 15 mg tablet 15 mg PO DAILY Referrals: Bill Machado MD [Primary Care Provider] - Stand Alone Forms: Patient Portal/API
[2023-11-30 19:29] LABS: Troponin I < 0.012 ng/mL (0.01-0.034)
== END 2023-11-30 19:40 | disposition home or self-care (01) ==
PROVIDERS: Emergency Medicine; Emergency Provider Emergency Medicine; Family Provider Family Medicine; PCP Family Medicine
DX: R07.9 Chest pain, unspecified (principal)
CPT/HCPCS: 36415; 71045; 80053; 82550; 83690; 83735; 83880; 84484; 85025; 85610; 85730; 93005; 93010; 99284

== ENCOUNTER 2024-03-19 10:27 | Emergency (ER) | payer OTHER, MEDICAID, SELFPAY ==
[2022-07-13 14:35] VITALS: BMI 29.2
[2024-03-19 10:40] VITALS: BP 129/82; PULSE 90; RESP 16; TEMP 36.6; O2SAT 95; BMI 29.3
--- NOTE | 2024-03-19 11:16 | ED_ITS ---
HPI - Abdominal Pain <Ny Zuniga PA-C - Last Filed: 03/19/24 12:18> General Chief Complaint: Abdominal Pain Stated Complaint: Pelvic pain right side Time Seen by Provider: 03/19/24 11:09 History of Present Illness HPI narrative: 73-year-old male presents with right inguinal discomfort for the last several days. He points to his right suprapubic area he states that he has had ?a lump there for some time but now it is become painful. He denies any fever, chills, body aches or joint pains, no recent illness. Pain is reproduced if he urinates stating when the pressure builds up he feels it or when he is defecating. He tries to avoid constipation but notices some more pain if he is straining. He has had no trauma, no fall, history is significant for degenerative joint disease, degenerative disc disease, spinal fusion, previous compression fractu res L4-L1, hypertension, migraine, sciatica, umbilical hernia repair May 2017, back surgeries in May 2020 and October 2018 shoulder surgery in August 2019. States that he exercises daily performing air squats daily, stretches, he walks 1 mi per day, does a 1/2 mi on the recumbent bike which is now starting to cause him discomfort. He denies any disruption during sleep, it does hurt more though if he lays prone. All other systems are reviewed and are negative. Related Data Allergies Allergy/AdvReac Type Severity Reaction Status Date / Time No Known Drug Allergies Allergy Verified 11/30/23 16:31 Review of Systems <Ny Zuniga PA-C - Last Filed: 03/19/24 12:18> Review of Systems Narrative: All other systems are reviewed and are negative. Patient History <Ny Zuniga PA-C - Last Filed: 03/19/24 12:18> Medical History DDD (degenerative disc disease), 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 Sacral dysfunction Insomnia due to medical condition Fusion of spine, lumbosacral region Concussion Stress and adjustment reaction Chronic right shoulder pain Chronic neck pain Litigation Compression fracture of L4 vertebra Compression fracture of L1 lumbar vertebra Spondylolisthesis at L4-L5 level Migraine Bilateral leg cramps Cranial somatic dysfunction Upper extremity somatic dysfunction Left elbow pain Short leg syndrome, left, acquired Somatic dysfunction of lower extremity Segmental and somatic dysfunction of abdomen and other regions Sacral region somatic dysfunction Pelvic somatic dysfunction Lumbar region somatic dysfunction Thoracic region somatic dysfunction Cervical somatic dysfunction Hyperlipidemia Chronic pain syndrome Chronic back pain (~1970) Wound dehiscence, external operation Subcutaneous mass of back Numbness and tingling Low back pain Migraines Sciatica Arthritis HTN (hypertension) Surgical History Hx of laminectomy (11/09/18) Anesthesia Hx of shoulder surgery (~08/2019) History of back surgery (~05/2020) S/P excision of ganglion cyst Hx of tonsillectomy Hx of umbilical hernia repair (06/16/17) Family History Father Hypertension Mother History of heart disease Social History marital status: unknown household members: none occupational status: previously employed Smoking Status: Never smoker alcohol intake: current substance use type: marijuana Smoking Status: Never smoker alcohol intake frequency: a few times a week Exam <Ny Zuniga PA-C - Last Filed: 03/19/24 12:18> Initial Vital Signs Initial Vital Signs: Vital Signs Temperature 98 F 03/19/24 10:40 Pulse Rate 90 03/19/24 10:40 Respiratory Rate 16 03/19/24 10:40 Blood Pressure 129/82 03/19/24 10:40 Pulse Oximetry 95 03/19/24 10:40 Oxygen Delivery Method Room Air 03/19/24 10:40 Vital signs reviewed and are normal. Const Other: Ambulatory, no distress, pleasantly conversing. Resp Effort & Inspection: normal respiratory effort and able to speak in complete sentences Auscultation: clear to auscultation bilaterally, no rales, no rhonchi and no wheezes Cardio Rate: regular rate Rhythm: regular rhythm GI Inspection: normal to inspection, no edema and non-distended Palpation: soft, no hepatosplenomegaly and No guarding Percussion: normal to percussion Auscultation: normal bowel sounds Other: Discomfort in the right side suprapubic pad, there is no visible lump in the supine position, palpation causes quite a bit of discomfort. No inguinal nodes, full range of motion to the hip, no discoloration or breaks in the skin, normal color, turgor, temperature. General: bladder normal to inspection and bladder normal to palpation External: normal external exam and no inguinal lymphadenopathy Penis: normal penis Meatus: meatus normal Scrotum: scrotum normal Other: Tender in the external inguinal ring but no appreciable bulge bilaterally. Back/Spine/Pelvis Other: No CVA tenderness. Ambulatory without difficulty. Skin General: no rashes or lesions noted <Mathew Dickerson MD - Last Filed: 03/19/24 18:48> Initial Vital Signs Initial Vital Signs: Vital Signs Temperature 98 F 03/19/24 10:40 Pulse Rate 90 03/19/24 10:40 Respiratory Rate 16 03/19/24 10:40 Blood Pressure 129/82 03/19/24 10:40 Pulse Oximetry 95 03/19/24 10:40 Oxygen Delivery Method Room Air 03/19/24 10:40 Course <Ny Zuniga PA-C - Last Filed: 03/19/24 12:18> Orders Ordered: ED Orders 03/19/24 11:10 Urinalysis and Microscopic Stat 03/19/24 11:16 CT abdomen pelvis wo con Stat Vital Signs Vital signs: Vital Signs - 8 hr 03/19/24 12:14 Pulse Rate 85 Respiratory Rate 18 Blood Pressure 129/74 Pulse Oximetry 99 <Mathew Dickerson MD - Last Filed: 03/19/24 18:48> Orders Ordered: ED Orders 03/19/24 11:10 Urinalysis and Microscopic Stat 03/19/24 11:16 CT abdomen pelvis wo con Stat Vital Signs Vital signs: Vital Signs - 8 hr 03/19/24 12:14 Pulse Rate 85 Respiratory Rate 18 Blood Pressure 129/74 Pulse Oximetry 99 MDM - Abdominal Pain <Ny Zuniga PA-C - Last Filed: 03/19/24 12:18> Lab Data Lab results narrative: Urinalysis is normal, microscopy performed, no blood, no bacteria. Labs: Lab Results 03/19/24 Range/Units 11:10 Urine Color Yellow Urine Appearance Clear Urine pH 5.0 (4.5-8.0) Ur Specific [place] <=1.005 (1.000-1.035) Urine Protein Negative (Negative) Urine Glucose (UA) Negative (Negative) g/dL Urine Ketones Negative (NEGATIVE) Urine Occult Blood Negative (Negative) Urine Nitrate Negative (Negative) Urine Bilirubin Negative (NEGATIVE) Urine Urobilinogen 0.2 (0.2) E.U./dL Ur Leukocyte Esterase Negative (NEGATIVE) Urine RBC None seen (0-5/HPF) Urine WBC 0-1/hpf (0-5/HPF) Ur Squamous Epith Cells 0-1 /hpf (0-5/HPF) Urine Bacteria None seen (None) Ur Culture Indicated? Cult not indicated Vol Urine Centrifuged 10ml (spun) Imaging Data CT scan - abdomen/pelvis: My Impression: Deferred to radiologist's interpretation below. Radiologist's Impression: PROCEDURE: CT ABDOMEN PELVIS WO CON INDICATIONS: right inguinal pubic pain, swelling, r/o hernia TECHNIQUE: Axial sections were acquired from the lung bases to the pubic symphysis. Coronal and sagittal reformats were performed. For radiation dose reduction, the following was used: automated exposure control, adjustment of mA and/or kV according to patient size. COMPARISON: [facility], CT, CT LUMBAR SPINE WO CON, 11/22/2023, 11:47. FINDINGS: Image quality: Diagnostic. Lower Chest: No significant findings. URINARY: Right Kidney: No stones or hydronephrosis. Right Ureter: No hydroureter. Left Kidney: No stones or hydronephrosis. Left Ureter: No hydroureter. Bladder: Normal wall thickness. No stones. ABDOMEN: Liver: No contour-deforming solid mass. Gallbladder: No radiopaque gallstones or wall thickening. Biliary ducts: No biliary dilation. Pancreas: No ductal dilation. Spleen: Size is within normal limits. Adrenal Glands: No adrenal nodules. Stomach and Bowel: Normal colonic caliber, without significant wall thickening. Diverticulosis without evidence of acute diverticulitis. Normal appendix. Peritoneum: No abnormal intraperitoneal fluid. No free air. Ventral Wall: No hernia. Abdominal Nodes: No enlarged retroperitoneal or mesenteric lymph nodes. Vessels: Aorta and inferior vena cava are normal in size. Atherosclerotic vascular calcifications. PELVIS: Pelvic Organs: Prostatomegaly. Pelvic Nodes: Unremarkable. Miscellaneous: Small bilateral inguinal hernias containing fat, mildly greater on the right. Bones: Degenerative changes of the spine. L4 through S1 posterior spinal fixation hardware. Stable wedge compression deformity of L1. IMPRESSION: 1. Small bilateral inguinal hernias containing fat, mildly greater on the right. No evidence of inflammation. 2. Diverticulosis without evidence of acute diverticulitis. 3. Please see above for additional chronic findings. Dictated by: Angel Cruz M.D. on 03/19/2024 at 11:49 Approved by: Angel Cruz M.D. on 03/19/2024 at 11:54 MDM Narrative Medical decision making narrative: CT confirms bilateral inguinal fat hernias right greater than left, no worrisome findings otherwise, normal urine. I managed to talk to the general surgery office and schedule him an appointment for an evaluation consultation. We discussed red flag warning signs in detail and to avoid exercise that causes pain, avoid his air squats, or anything that increases the pressure in this area, avoid constipation. If he is any worrisome symptoms or any worsening pain to please do not hesitate and return to the emergency department. He does take Tylenol daily along with meloxicam, I have asked him to try ice or heat. <Mathew Dickerson MD - Last Filed: 03/19/24 18:48> Lab Data Labs: Lab Results 03/19/24 Range/Units 11:10 Urine Color Yellow Urine Appearance Clear Urine pH 5.0 (4.5-8.0) Ur Specific [place] <=1.005 (1.000-1.035) Urine Protein Negative (Negative) Urine Glucose (UA) Negative (Negative) g/dL Urine Ketones Negative (NEGATIVE) Urine Occult Blood Negative (Negative) Urine Nitrate Negative (Negative) Urine Bilirubin Negative (NEGATIVE) Urine Urobilinogen 0.2 (0.2) E.U./dL Ur Leukocyte Esterase Negative (NEGATIVE) Urine RBC None seen (0-5/HPF) Urine WBC 0-1/hpf (0-5/HPF) Ur Squamous Epith Cells 0-1 /hpf (0-5/HPF) Urine Bacteria None seen (None) Ur Culture Indicated? Cult not indicated Vol Urine Centrifuged 10ml (spun) Discharge Plan Departure Patient Disposition: Home Clinical Impression: Inguinal hernia bilateral, non-recurrent Qualifiers: Obstruction and gangrene presence: without obstruction or gangrene Recurrence: non-recurrent Qualified Code(s): K40.20 - Bilateral inguinal hernia, without obstruction or gangrene, not specified as recurrent Activity Restrictions/Additional Instructions: I spoke with our general surgery office and scheduled 1st available appointment with Dr. Adarsh Garner on April 18, 2024 with a 9:00 a.m. check in. Please do try ice or heat, continue with her Tylenol, avoid deep squats air squats or anything that increases the pressure, avoid constipation. If you have any worsening pain, swelling, develop any fever, nausea or any other worrisome symptoms please do not hesitate to return to the emergency department. Back off on any exercise that causes you discomfort. Referrals: Adarsh Garner MD [Physician] - (Bilateral inguinal fat hernias, increased pain. Appointment scheduled for 04/18/24 9am check-in) Bill Machado MD [Primary Care Provider] - Stand Alone Forms: Patient Portal/API/Survey ED Sign-out <Mathew Dickerson MD - Last Filed: 03/19/24 18:48> Cosign ED Attending Cosignature Attestation: I was immediately available in the department for consultation. This documentation has been reviewed and I agree with assessment and plan. Supervised by Mathew Dickerson MD
[2024-03-19 11:28] LABS: Appearance Urine UA CLEAR; Bilirubin Urine UA NEGATIVE (NEGATIVE); Color Urine UA YELLOW; Glucose Urine UA NEGATIVE (Negative); Ketones Urine UA NEGATIVE (NEGATIVE); Leukocyte Esterase Urine UA NEGATIVE (NEGATIVE); Nitrite Urine UA NEGATIVE (Negative); Occult Blood Urine UA NEGATIVE (Negative); Protein Urine UA NEGATIVE (Negative); Specific Gravity Urine UA <=1.005 (1.000-1.035); Urobilinogen Urine UA 0.2 E.U./dL (0.2)
[2024-03-19 11:48] LABS: Bacteria Urine None Seen; Culture Indicated Urine Cult Not Indicated; RBC Urine None Seen (0-5/HPF); Squamous Epithelial Cell Urine 0-1 /HPF (0-5/HPF); Urine Volume 10mL (spun); WBC Urine 0-1/HPF (0-5/HPF)
[2024-03-19 12:14] VITALS: BP 129/74; PULSE 85; RESP 18; O2SAT 99
== END 2024-03-19 12:14 | disposition home or self-care (01) ==
PROVIDERS: Emergency Medicine; Emergency Provider Physician Assistant Medical; Family Provider Family Medicine; PCP Family Medicine
DX: K40.20 Bilateral inguinal hernia, without obstruction or gangrene, not specified as recurrent (principal)
CPT/HCPCS: 74176; 81001; 99284

== ENCOUNTER 2024-04-24 13:37 | Day surgery (SDC) | payer OTHER, MEDICAID, SELFPAY ==
[2022-07-13 14:35] VITALS: BMI 29.2
[2024-04-17 14:31] VITALS: BMI 30.1
[2024-04-24] VITALS (21 sets, daily range): BP systolic 124–159; BP diastolic 69–103; PULSE 79–94; RESP 12–24; TEMP 36–36.6; O2SAT 89–97; BMI 30.1
--- NOTE | 2024-04-24 14:04 | PM.PREOP ---
Pre-operative Note COVID-19 COVID-19 status: Not tested Interval Note History & Physical reviewed/Exam performed by Physician: Yes Changes to H&P: No ASA Class (for procedural sedation): III
[2024-04-24] MEDS: LACTATED RINGERS 1,000 ML 42 ML IV ×2 (14:14→17:21)
[2024-04-24] MEDS: ACETAMINOPHEN 325 MG TABLET 975 MG PO (14:15)
[2024-04-24] MEDS: CEFAZOLIN 2 GM/100 ML PREMIX 100 ML IV (14:53)
[2024-04-24] MEDS: BUPIVACAINE 0.5% W/ EPI (PF) 30 ML VIAL INJ (15:07)
--- NOTE | 2024-04-24 15:14 | SUR.OPER ---
Addendum entered by Stefani Chavez R.N. 04/24/24 15:17: Supine on padded OR bed with pink pad, head on pillow, arms padded and tucked at sides, legs uncrossed, pillow underneath pt knees per pt request for back comfort, safety belt at thigh, tape over blanket over lower legs . Original Note: Supine on padded OR bed, head on pillow, arms padded and tucked at sides, legs uncrossed, pillow underneath pt knees per pt request for back comfort, safety belt at thigh, tape over blanket over lower legs .
--- NOTE | 2024-04-24 16:56 | P.OP_ITS ---
Operative Date/Time/Diagnoses Date of procedure: 04/24/24 Time of procedure: 16:56 Pre-op diagnosis: Bilateral inguinal hernias Post-op diagnosis: same Procedure & Clinicians Procedure: Laparoscopic bilateral inguinal hernia repair with mesh Same procedure as scheduled: Yes Indications: Bilateral inguinal hernias Surgeon: Adarsh Garner Anesthesia Type: General Operative Notes Procedure in detail: Surgeon: Adarsh Garner MD The patient was given preoperative antibiotics. The patient was brought to the operating room, placed on the table in the supine position with the arms tucked and general anesthesia was induced. The abdomen was prepped and draped in the usual fashion. A time-out was performed. A 1 cm supraumbilical incision was created and dissection was carried down to the fascia. There was suture mate rial seen in the anterior abdominal wall. The anterior sheath was scored transversely but there was mesh material deep to the fascia. Although there was no umbilicus scar was apparent that he had had a prior umbilical hernia repair with mesh. We then made a new transverse incision through the anterior sheath about 1.5 cm superior to the edge of the mesh. A Peon clamp was used to cali the peritoneum. The Mehran port was placed and the abdomen was insufflated to 15 mmHg. The camera was inserted, there was no evidence of any injury from the entry. 5 mm ports were placed under direct vision in the mid left and mid right abdomen. The patient was positioned in steep Trendelenburg. We started on the left side. We created a left peritoneal flap. The peritoneum was dissected off the left cord structures. It appeared there was a sliding indirect hernia. A large left Bard mesh was brought in and placed over the defect with the medial edge against Reggie's ligament. We then closed the peritoneal flap with a running 3-0 barbed suture. Next we turned our attention to the right side. It appeared that there was an indirect defect with a hernia sac. The peritoneum was dissected off the right cord structures. A large right Bard mesh was brought in and placed over the defect with the medial edge against Reggie's ligament. We then closed the peritoneal flap with a running 3-0 barbed suture. We took one last look around the abdomen and saw no other abnormalities. The suture was removed and accounted for. The 5 mm ports were removed under direct vision. The abdomen was desufflated. The Mehran port was removed. Additional local was injected into the fascia and the fascial incision was closed with 2 interrupted 0 Vicryl sutures. The skin incisions were closed with 4 Monocryl, Steri-Strips and Band-Aids. EBL: 10 mL Post-operative Condition: stable Disposition: PACU
[2024-04-24] MEDS: HYDROMORPHONE 1 MG INJ IV ×2 (17:27→17:54)
[2024-04-24] MEDS: OXYCODONE IR 5 MG TABLET PO (17:28)
[2024-04-24] MEDS: LORazepam 2 MG/ML INJ 0.25 MG IV (17:42)
--- NOTE | 2024-04-24 18:53 | DI.RAD.S_ITS ---
PROCEDURE: XR CHEST 1V INDICATIONS: hypoxia TECHNIQUE: One view of the chest was acquired. COMPARISON: [facility], CR, XR CHEST 1V, 11/30/2023, 16:58. FINDINGS: Surgical changes and devices: None. Lungs and pleura: Lungs are clear. Low lung volumes. No pleural effusions or pneumothorax. Mediastinum: Mediastinal contours appear normal. Heart size is prominent. Bones and chest wall: No suspicious bony lesions. Overlying soft tissues appear unremarkable. IMPRESSION: No acute cardiopulmonary abnormality is seen. Dictated by: Angel Cruz M.D. on 04/24/2024 at 19:44 Approved by: Angel Cruz M.D. on 04/24/2024 at 19:44
[2024-04-24] MEDS: HYDROCODONE/ACET 5/325 TABLET 2 TAB PO (21:13)
[2024-04-24] MEDS: BENZOCAINE/MENTHOL 1 LOZ PKT 1 EACH PO (23:03)
[2024-04-24] MEDS: ACETAMINOPHEN 325 MG TABLET 650 MG PO (23:03)
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
[2024-04-25] VITALS: BP 128/77; PULSE 94; RESP 18; TEMP 36.2; O2SAT 95
[2024-04-25] MEDS: HYDROCODONE/ACET 5/325 TABLET 2 TAB PO (01:08)
[2024-04-25] MEDS: ONDANSETRON 4 MG/2 ML INJ IV (01:39)
[2024-04-25] MEDS: HYDROMORPHONE 0.5 MG INJ IV (03:16)
[2024-04-25 05:12] LABS: Add Manual Diff / Slide Review NO; Basophils Absolute Auto 0 /uL (0-100); Basophils Percent Auto 0.3 % (0-2); Eosinophils Absolute Auto 0 /uL (0-450); Eosinophils Percent Auto 0.1 % (2-4); Hematocrit 40.1 % (41-53); Hemoglobin 13.5 g/dL (13.5-17.5); Lymphocytes Absolute Auto 2000 /uL (1100-4500); Lymphocytes Percent Auto 17.6 % (25-40); Mean Corpuscular HGB Conc 33.6 % (30-36); Mean Corpuscular Hemoglobin 30.4 PG (26-34); Mean Corpuscular Volume 90.4 fL (80-100); Monocytes Absolute Auto 1000 /uL (0-900); Monocytes Percent Auto 9.2 % (3-14); Neutrophils Absolute Auto 8200 /uL (1500-7000); Neutrophils Percent Auto 72.8 % (50-75); Platelet Count 228 X10^3/uL (150-400); Red Blood Cell Count 4.43 X10^6/uL (4.5-5.9); Red Cell Distribution Width 13.4 % (11.6-14.8); White Blood Cell Count 11.3 X10^3/uL (4.5-11.0)
[2024-04-25 05:32] LABS: Alanine Aminotransferase 30 IU/L (<50); Albumin 3.8 g/dL (3.5-5.0); Albumin Globulin Ratio 1.5 (1.0-2.8); Alkaline Phosphatase 60 U/L (38-126); Aspartate Aminotransferase 33 IU/L (17-59); BUN Creatinine Ratio 22.1 (6-22); Bilirubin Total 0.4 mg/dL (0.2-1.3); Blood Urea Nitrogen 17 mg/dL (9-20); Calcium 8.5 mg/dL (8.4-10.2); Carbon Dioxide 24 mmol/L (22-32); Chloride 104 mmol/L (98-107); Estimated Glomerular Filt Rate > 60 mL/min (>60); Globulin 2.5 g/dL (1.7-4.1); Glucose 128 mg/dL (80-110); HEMOLYSIS < 15 (0-50); Magnesium 2.1 mg/dL (1.6-2.3); Potassium 3.8 mmol/L (3.4-5.1); Sodium 135 mmol/L (137-145); Total Protein 6.3 g/dL (6.3-8.2)
[2024-04-25 08:00] VITALS: BP 155/92; PULSE 67; RESP 16; TEMP 37.2; O2SAT 97
[2024-04-25 08:39] VITALS: BP 155/92; PULSE 67
[2024-04-25] MEDS: lisinopriL 20 MG TABLET PO (08:39)
[2024-04-25] MEDS: AMLODIPINE 5 MG TABLET PO (08:39)
[2024-04-25] MEDS: DULOXETINE 30 MG CAPSULE PO (08:39)
[2024-04-25] MEDS: HYDROCODONE/ACET 5/325 TABLET 1 TAB PO (08:42)
[2024-04-25] MEDS: SODIUM CHLORIDE 0.9% FLUSH 10 ML IV (09:15)
[2024-04-25] MEDS: ACETAMINOPHEN 325 MG TABLET 650 MG PO (11:29)
--- NOTE | 2024-04-25 11:35 | CM.DANOTE ---
DCP Assessment note Pt is a 73yo M POD1 hernia repair with Dr. Garner PCP none at this time. Per TCM group, pt was dismissed from the OP [facility] clinics due to behavior. Payer [employer]vantage and Medicaid MOTOR EQUIPMENT CAPTAIN reviewed EMR. per chart, dc order in. MOTOR EQUIPMENT CAPTAIN consult for no money. MOTOR EQUIPMENT CAPTAIN witnessed pt ambulating halls with walker throughout morning. MOTOR EQUIPMENT CAPTAIN entered room and introduced self and role. Pt A/Ox4, pleasant and cooperative with this MOTOR EQUIPMENT CAPTAIN. Report lives in [place] alone, has a walker/cane, and drives at baseline. Reports it's been hard for him to establish care with new PCP due to having to go to [facility] for new PCP. MOTOR EQUIPMENT CAPTAIN provided pt with information on Medicaid transportation benefits/provided pt with new list of PCP providers taking his insurance. MOTOR EQUIPMENT CAPTAIN provided pt with additional community resources/financial assistance. Pt appreciative. denies other needs. has a friend coming to take him home around 12pm today. MOTOR EQUIPMENT CAPTAIN updated RN. P: home today with friend support. Pt to establish care with new PCP. No further CM needs/barriers to safe dc home identified at this time. CM team will continue to follow as needed CHELY Spears Discharge Planning/Care Management CM Discharge Assessment Start: 04/25/24 11:34 Freq: Status: Active Protocol: Document 04/25/24 11:34 SL (Rec: 04/25/24 11:35 [id number]) Discharge Planning Assessment Assigned Contact Worker Lith[employer] CHELY Salas DPOA/Assigned Designee Name adilene Darling Contact Information [phone] Advance Directives? No History Provided By Patient,Medical Record Prior Living Arrangements Apartment/Condo Household Members none Type of transporation used prior to Drives own vehicle admit Independent with ADL's Yes Is patient alert and oriented? Yes DME Already Rented / Owned FWW / Walker,Cane Barriers to Discharge No Discharge Plan Home Transportation Arrangement friend in POV Referrals Initiated None needed Review Status In Process Please Provide Date Initial DC 04/25/24 Assessment Was Performed Next Review Type Continued Stay Review Pre-Anesthesia Assessment Start: 04/17/24 14:31 Freq: Status: Complete Protocol: Document 04/17/24 14:31 CAB (Rec: 04/17/24 14:50 CAB [id number]) Pre-Anesthesia Assessment PAC Comment Chart review 1/21/25 Preferred Name Idris Patient Information Reviewed Via Chart Review Seen Specialist in Last 12 Months Yes Specialist Seen Emergency,General surgeon, Orthopedist,Other Comment Neurosurgeon visit 08/02/23 scanned and in surgery folder Primary Language Portuguese Preferred Language Portuguese Height 175.26 cm Weight 92.533 kg Body Mass Index (BMI) 30.1 Hearing Ability Normal Visual Assist Glasses Dentition Type Full- Upper Barriers to Learning Memory Comment Hx of memory issues r/t concussion Hx Anesthesia Reactions No Hx Family Anesthesia Reaction No Hx Malignant Hyperthermia No Hx Blood Transfusions No Anesthesia Review Requested No Photographic Laboratory Technician No alcohol intake current alcohol intake frequency a few times a week Smoking Status Former smoker Tobacco type cigarettes how long ago did patient quit smoking Quit age 36 Patient is completely paralyzed or No completely immobile Mental Status Oriented to own ability Is patient on oxygen? No Does patient have SILVER/SOB No Hx Sleep Apnea No CPAP/BIPAP use not prescribed Currently Taking a Beta Roddy No Hx Chest Pain No Hx SOB No Hx Syncope or Dizziness No Anti-Coagulant Therapy No Has a Neurobiologist No Cardiac Testing No Hx Pacemaker/ICD No Pacemaker Rep Required? No Diet Type At Home Regular Dysphagia No Urinary Catheter Present No Hx Urinary Self Catheterization No Diabetes No Hx Drug Resistant Organism No Presence of External or Internal Medical No Devices Received a COVID vaccine? Yes Marital Status Single Lives With none Patient Discharge Plan Description Return Home Do You Have Any Spiritual Beliefs That No May Affect Your HC Choices? Do You Have Any Cultural Practices That No May Affect Your HC Choices? Emergency Contact Name Marco Antonio Evans (good friend) Emergency Contact Phone Number [phone] Advance Directives? No Power of Social Service Worker No
--- NOTE | 2024-04-25 12:44 | PC.NURSE ---
Patient was educated on discharge and discharge intructions given. All questions answered. Patient was escorted by HARLEY Silva to the front entrance to be picked up by a friend. Patient left with all belongings.
== END 2024-04-25 12:30 | disposition home or self-care (01) ==
LOC: OR 18:57 → AC 18:58
PROVIDERS: Internal Medicine; Referring Provider Surgery; Visit Provider Surgery
PROC: 0YQ64ZZ Repair Left Inguinal Region, Percutaneous Endoscopic Approach (ICD-10-PCS; CPT 49650; principal; 2024-04-24 15:00)
DX: K40.20 Bilateral inguinal hernia, without obstruction or gangrene, not specified as recurrent (principal)
CPT/HCPCS: 49650; 36415; 71045; 80053; 83735; 85025; C1781; J0690; J1100; J1171; J2060; J2405; J2704; J3010

== ENCOUNTER → 2024-06-28 10:57 | Outpatient (CLI) | payer OTHER, MEDICAID, SELFPAY ==
[2024-04-24 19:05] VITALS: BMI 30.1
--- NOTE | 2024-06-28 11:02 | DI.RAD.S_ITS ---
PROCEDURE: XR CHEST 2V INDICATIONS: COUGH TECHNIQUE: 2 views of the chest were acquired. COMPARISON: [facility], MR, MR LUMBAR SPINE WO/W CON, 11/22/2023, 14:27. [facility], CR, XR CHEST 1V, 04/24/2024, 18:52. [facility], CR, XR CHEST 1V, 11/30/2023, 16:58. FINDINGS: Surgical changes and devices: None. Lungs and pleura: Lungs are clear. No pleural effusions or pneumothorax. Mediastinum: Mediastinal contours are normal. Heart size is normal. Bones and chest wall: No suspicious bony abnormalities. Chronic compression deformity of L1. Soft tissues appear unremarkable. IMPRESSION: No acute cardiopulmonary abnormality is seen. Dictated by: Angel Cruz M.D. on 06/28/2024 at 15:23 Approved by: Angel Cruz M.D. on 06/28/2024 at 15:24
== END ==
PROVIDERS: Referring Provider Family Medicine; Visit Provider Family Medicine
DX: R06.02 Shortness of breath (principal)
CPT/HCPCS: 71046

== ENCOUNTER 2024-08-19 16:30 | Emergency (ER) | payer OTHER, MEDICAID, SELFPAY ==
[2024-04-24 19:05] VITALS: BMI 30.1
[2024-08-19] VITALS (13 sets, daily range): BP systolic 160–194; BP diastolic 87–107; PULSE 59–69; RESP 15–25; TEMP 36.9–37.2; O2SAT 89–98; BMI 29.5
--- NOTE | 2024-08-19 16:44 | EKG_ITS ---
[address] [address] Test Date: 2024-08-19 Pat Name: Shan To Department: Room: Gender: Male Financial Planning Consultant: KEATON : 1950 Requested By: Order Number: [id number] Reading MD: Brett Parrish Measurements Intervals Bath Rate: 64 P: 29 NH: 158 QRS: 4 QRSD: 80 T: 59 QT: 408 QTc: 420 Interpretive Statements Normal sinus rhythm Electronically Signed On 08-20-2024 7:25:42 PDT by Brett Parrish
--- NOTE | 2024-08-19 17:19 | DI.RAD.S_ITS ---
PROCEDURE: XR CHEST 1V INDICATIONS: Chest Pain TECHNIQUE: One view of the chest was acquired. COMPARISON: [facility], LULU, XR CHEST 1V, 04/24/2024, 18:52. [facility], CR, XR CHEST 1V, 11/30/2023, 16:58. FINDINGS: Surgical changes and devices: None. Lungs and pleura: Lungs are clear. No pleural effusions or pneumothorax. Mediastinum: Mediastinal contours appear normal. Heart size is normal. Bones and chest wall: No suspicious bony lesions. Overlying soft tissues appear unremarkable. IMPRESSION: No acute cardiopulmonary abnormality is seen. Approved by: Lupillo Garg M.D. on 08/19/2024 at 16:55
--- NOTE | 2024-08-19 17:20 | DI.CT.S_ITS ---
PROCEDURE: CT HEAD/BRAIN WO CON INDICATIONS: Slip and fall on wine bottle head strike neck tenderness TECHNIQUE: Noncontrast 4.5 mm thick angled axial sections acquired from the foramen magnum to the vertex, with coronal and sagittal reformats. For radiation dose reduction, the following was used: automated exposure control, adjustment of mA and/or kV according to patient size. COMPARISON: [facility], CT, CT HEAD/BRAIN WO CON, 07/01/2021, 22:21. FINDINGS: Image quality: Diagnostic. CSF spaces: Basal cisterns are patent. No extra-axial fluid collections. The ventricles are symmetric in size and shape. Brain: No acute intracranial hemorrhage or mass effect. There is cerebral volume loss, with resultant ventricular and sulcal prominence. There are periventricular and deep white matter chronic small vessel ischemic changes. There is intracranial internal carotid artery atherosclerosis. Skull and face: Calvarium and visualized facial bones appear intact, without suspicious lesions. Sinuses: Visualized sinuses and mastoids are clear. IMPRESSION: No acute intracranial pathology. Approved by: Lupillo Garg M.D. on 08/19/2024 at 16:50
--- NOTE | 2024-08-19 17:21 | DI.CT.S_ITS ---
PROCEDURE: CT CERVICAL SPINE WO CON INDICATIONS: slip and fall neck pain vision loss right eye TECHNIQUE: Noncontrast 3 mm thick sections acquired from the skull base to the T4 level. Sagittal and coronal reformats were then constructed. For radiation dose reduction, the following was used: automated exposure control, adjustment of mA and/or kV according to patient size. COMPARISON: [facility], CT, CT CERVICAL SPINE WO CON, 07/01/2021, 22:21. FINDINGS: Image quality: Excellent. Bones: No fractures or dislocations. Severe cervical spondylosis. Findings include multilevel at least mild canal stenosis and multilevel bony foraminal narrowing. Visualized superior ribs are intact. Soft tissues: Prevertebral soft tissues are normal in thickness. No paravertebral hematomas. No apical pneumothoraces. IMPRESSION: No displaced fracture or traumatic subluxation. Cervical spondylosis. Dictated by: Juan Hall M.D. on 08/19/2024 at 17:49 Approved by: Juan Hall M.D. on 08/19/2024 at 17:51
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
[2024-08-19 17:41] LABS: Prothrombin Time 11.7 SECONDS (9.4-12.5)
[2024-08-19 17:44] LABS: PTT Partial Thromboplastin Tim 30 SECONDS (25.1-36.5)
[2024-08-19 17:51] LABS: Alanine Aminotransferase 27 IU/L (<50); Albumin 3.9 g/dL (3.5-5.0); Albumin Globulin Ratio 1.6 (1.0-2.8); Alkaline Phosphatase 62 U/L (38-126); Aspartate Aminotransferase 29 IU/L (17-59); BUN Creatinine Ratio 39.5 (6-22); Bilirubin Total 0.5 mg/dL (0.2-1.3); Blood Urea Nitrogen 30 mg/dL (9-20); Calcium 8.8 mg/dL (8.4-10.2); Carbon Dioxide 26 mmol/L (22-32); Chloride 107 mmol/L (98-107); Creatine Kinase 133 U/L (55-170); Estimated Glomerular Filt Rate > 60 mL/min (>60); Globulin 2.5 g/dL (1.7-4.1); Glucose 94 mg/dL (70-99); HEMOLYSIS 26 (0-50); Lipase 113 U/L (23-300); Magnesium 2.1 mg/dL (1.6-2.3); Sodium 139 mmol/L (137-145); Total Protein 6.4 g/dL (6.3-8.2)
[2024-08-19 17:55] LABS: Add Manual Diff / Slide Review NO; Basophils Absolute Auto 0 /uL (0-100); Basophils Percent Auto 0.7 % (0-2); Eosinophils Absolute Auto 100 /uL (0-450); Hematocrit 42.5 % (41-53); Hemoglobin 14.2 g/dL (13.5-17.5); Lymphocytes Absolute Auto 2200 /uL (1100-4500); Lymphocytes Percent Auto 30.7 % (25-40); Mean Corpuscular HGB Conc 33.5 % (30-36); Mean Corpuscular Hemoglobin 30.2 PG (26-34); Mean Corpuscular Volume 90.3 fL (80-100); Monocytes Absolute Auto 700 /uL (0-900); Monocytes Percent Auto 9.2 % (3-14); Neutrophils Absolute Auto 4200 /uL (1500-7000); Neutrophils Percent Auto 58.4 % (50-75); Platelet Count 221 X10^3/uL (150-400); Red Blood Cell Count 4.71 X10^6/uL (4.5-5.9); Red Cell Distribution Width 13.5 % (11.6-14.8); White Blood Cell Count 7.3 X10^3/uL (4.5-11.0)
[2024-08-19 18:02] LABS: NT-proBNP (BNP-Adult 18+) 96 pg/mL (<125); Troponin I < 0.012 ng/mL (0.01-0.034)
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
== END 2024-08-19 19:00 | disposition home or self-care (01) ==
PROVIDERS: Emergency Medicine; Emergency Provider Family Medicine
DX: S09.90XA Unspecified injury of head, initial encounter (principal); R10.31 Right lower quadrant pain; S20.219A Contusion of unspecified front wall of thorax, initial encounter; M54.2 Cervicalgia; R07.9 Chest pain, unspecified; W01.0XXA Fall on same level from slipping, tripping and stumbling without subsequent striking against object, initial encounter
CPT/HCPCS: 70450; 71045; 72125; 80053; 82550; 83690; 83735; 83880; 84484; 85025; 85610; 85730; 93005; 99283; 99284

== ENCOUNTER → 2024-08-28 07:49 | Outpatient (CLI) | payer OTHER, MEDICAID, SELFPAY ==
[2024-04-24 19:05] VITALS: BMI 30.1
--- NOTE | 2024-08-28 07:50 | DI.US.S_ITS ---
PROCEDURE: US ABDOMEN LIMITED INDICATIONS: BILATERAL INGUINAL HERNIA ?RECURRENT HERNIA TECHNIQUE: Real-time focused scanning was performed of the inguinal region, with image documentation. COMPARISON: [facility], CT, CT ABDOMEN PELVIS WO CON, 03/19/2024, 11:19. FINDINGS: Probable small fat containing right inguinal hernia. Possible small left inguinal hernia. IMPRESSION: Suspected small bilateral inguinal hernias. Consider cross- sectional imaging for further evaluation. Approved by: Lupillo Garg M.D. on 08/28/2024 at 10:15
== END ==
PROVIDERS: PCP Family Medicine; Referring Provider Surgery; Visit Provider Surgery
DX: R10.31 Right lower quadrant pain (principal); R10.32 Left lower quadrant pain
CPT/HCPCS: 76705

== ENCOUNTER 2024-08-28 08:35 | Emergency (ER) | payer OTHER, MEDICAID, SELFPAY ==
[2024-04-24 19:05] VITALS: BMI 30.1
--- NOTE | 2024-08-28 08:44 | EKG_ITS ---
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
--- NOTE | 2024-08-28 08:44 | DI.RAD.S_ITS ---
PROCEDURE: XR CHEST 1V INDICATIONS: CP TECHNIQUE: One view of the chest was acquired. COMPARISON: [facility], CR, XR CHEST 1V, 08/19/2024, 17:28. FINDINGS: Surgical changes and devices: None. Lungs and pleura: Lungs are clear. No pleural effusions or pneumothorax. Mediastinum: Mediastinal contours appear normal. Heart size is normal. Bones and chest wall: No suspicious bony lesions. Overlying soft tissues appear unremarkable. IMPRESSION: No acute cardiopulmonary abnormality is seen. Dictated by: Juan Hall M.D. on 08/28/2024 at 9:10 Approved by: Juan Hall M.D. on 08/28/2024 at 9:11
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
[2024-08-28 08:53] VITALS: BP 162/97; PULSE 66; RESP 16; O2SAT 98; BMI 29.5
[2024-08-28 08:55] LABS: Add Manual Diff / Slide Review NO; Basophils Absolute Auto 0 /uL (0-100); Basophils Percent Auto 0.6 % (0-2); Eosinophils Absolute Auto 100 /uL (0-450); Eosinophils Percent Auto 1.4 % (2-4); Hematocrit 42.6 % (41-53); Hemoglobin 14.6 g/dL (13.5-17.5); Lymphocytes Absolute Auto 2200 /uL (1100-4500); Mean Corpuscular HGB Conc 34.3 % (30-36); Mean Corpuscular Hemoglobin 30.6 PG (26-34); Mean Corpuscular Volume 89.1 fL (80-100); Monocytes Absolute Auto 600 /uL (0-900); Monocytes Percent Auto 8.7 % (3-14); Neutrophils Absolute Auto 4000 /uL (1500-7000); Neutrophils Percent Auto 57.3 % (50-75); Platelet Count 224 X10^3/uL (150-400); Red Blood Cell Count 4.78 X10^6/uL (4.5-5.9); Red Cell Distribution Width 13.2 % (11.6-14.8)
[2024-08-28 09:12] LABS: Alanine Aminotransferase 26 IU/L (<50); Albumin Globulin Ratio 1.7 (1.0-2.8); Alkaline Phosphatase 63 U/L (38-126); Aspartate Aminotransferase 28 IU/L (17-59); BUN Creatinine Ratio 26.7 (6-22); Bilirubin Total 0.9 mg/dL (0.2-1.3); Blood Urea Nitrogen 20 mg/dL (9-20); Calcium 8.7 mg/dL (8.4-10.2); Carbon Dioxide 23 mmol/L (22-32); Chloride 106 mmol/L (98-107); Creatine Kinase 103 U/L (55-170); Estimated Glomerular Filt Rate > 60 mL/min (>60); Globulin 2.4 g/dL (1.7-4.1); Glucose 96 mg/dL (70-99); HEMOLYSIS 18 (0-50); Potassium 4.3 mmol/L (3.4-5.1); Sodium 136 mmol/L (137-145); Total Protein 6.4 g/dL (6.3-8.2)
[2024-08-28 09:23] LABS: Troponin I < 0.012 ng/mL (0.01-0.034)
[2024-08-28 09:38] VITALS: PULSE 74; O2SAT 97
[2024-08-28 10:00] VITALS: BP 160/92; PULSE 65; O2SAT 95
[2024-08-28 10:30] VITALS: BP 175/94; PULSE 62; RESP 24; O2SAT 96
[2024-08-28 10:59] LABS: Creatine Kinase 100 U/L (55-170)
[2024-08-28 11:00] VITALS: BP 183/108; PULSE 63; RESP 22; O2SAT 96
[2024-08-28 11:12] LABS: Troponin I < 0.012 ng/mL (0.01-0.034)
== END 2024-08-28 11:47 | disposition home or self-care (01) ==
PROVIDERS: Emergency Provider Emergency Medicine; PCP Family Medicine
DX: R07.9 Chest pain, unspecified (principal); R42 Dizziness and giddiness
CPT/HCPCS: 71045; 76705; 80053; 82550; 84484; 85025; 93005; 99214; 99281; 99284

== ENCOUNTER 2025-01-30 11:30 | Outpatient (RCR) | payer OTHER, MEDICAID, SELFPAY ==
[2024-04-24 19:05] VITALS: BMI 30.1
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
--- NOTE | 2024-11-08 18:08 | PT.OPPN ---
Current Diagnoses Low back pain, unspecified (11/08/24) Strain of muscle, fascia and tendon at neck level, subsequent encounter (11/08/24) Unspecified fall, subsequent encounter (11/08/24) Physical Therapy Progress Note PT OP: Full Body Start: 11/08/24 17:06 Freq: Status: Active Protocol: Document 11/08/24 17:06 [facility] (Rec: 11/08/24 18:08 [facility] [id number]) Out-Patient Physical Therapy Visit Information Visit Information Visit Type Progress Note Visit Start Time 17:04 Visit Stop Time 17:44 Visit Number 07/07 Number of FLOOR WORKER WELL SERVICE Visits 0 Progress Note Due 12/08/24 OP-PT Subjective Patient Comments Patient Comments got to 12 min on recumbent bike today. was able to do a .25 mile walk in the AM and PM also Functional Tests Functional Gait Assessment Score Cervical Spine Range of Motion Cervical Spine Active Degrees Extension 41 Rotation Left 62 Rotation Right 42 Hip Strength Hip Manual Muscle Testing Right Flexion (L2) 3 Fair Extension (S1) 3+ Fair+ Abduction 3+ Fair+ Adduction 4- Good- External Rotation 4- Good- Internal Rotation 3+ Fair+ Left Flexion (L2) 3+ Fair+ Extension (S1) 4- Good- Abduction 3+ Fair+ Adduction 4 Good External Rotation 4- Good- Internal Rotation 3+ Fair+ Comments pain groin w/ IR L and flex B; pain back w/hip abd and ext B Knee Strength Knee Manual Muscle Testing Right Flexion (S2) 4 Good Extension (L3) 4 Good Left Flexion (S2) 5 Normal Extension (L3) 4+ Good+ Ankle/Foot Strength Ankle and Foot Manual Muscle Testing Right Dorsiflexion (L4) 5 Normal Plantarflexion (S1) 4 Good Comments PF tested seated B Left Dorsiflexion (L4) 5 Normal Plantarflexion (S1) 5 Normal Therapeutic Exercises Supine Exercises Bridge Side bilateral Resistance L2 around knees Reps/Minutes 10 Comments cues alignment of legs BKFO Side bilateral Equipment Used L2 Reps/Minutes 8 ea Comments min cues core and control Gait Training Gait Activity walking Distance/Duration 4 min Comments walking heel to toe Neuro Re-Education Treatment Balance Activities hurdles Details rail prn Comments 1. recip fwd over x5 2. sidestep x2 B DGI Comments 15 Physical Therapy Assessment Goals ROM Short Term Goal (STG Pt will have cervical rotation to at least 60 B to ) allow greater ease with driving 11/08-62 L, 42 R STG Duration 11/16 Material Stockkeeper Yard Goal (LTG) Pt will have cervical ext to at least 30 deg to allow greater ease with ADLs 11/08-achieved LTG Duration achieved strength Short Term Goal (STG Pt will be indep w/HEP ) 11/08-some cues still required STG Duration 11/16 Material Stockkeeper Yard Goal (LTG) Pt will score at least 4+/5 on all BLE mMT to show improved strength in order to allow greater ease w/ daily tasks 11/08-improving LTG Duration 12/25 DGI Impairment 6 Short Term Goal (STG Pt will score at least 10 on DGI to show dec risk for ) falls. STG Duration achieved 11/08 Penitentiary Goal (LTG) Pt will score at least 15 on DGI to show dec risk for falls. LTG Duration 12/25 Assessment Summary Assessment Pt making improvements with cervical ROM, balance and LE strength. Still has deficits and would benefit from cont PT to address these and improve his function and dec pain. Physical Therapy Plan Frequency and Duration Frequency of 1-2x/wk Treatment Duration of 10 treatment (weeks) Plan of Care Start 10/16/24 Date Plan of Care End 12/25/24 Date Therapeutic Interventions Therapeutic Balance Training,Gait Training,Home Exercise Program, Interventions Joint Mobilizations,Manual Therapy,Neuromuscular Re- education,Patient/Caregiver Education,Self-Care/Home Management,Soft Tissue Mobilization,Taping,Therapeutic Activities,Therapeutic Exercises Modalities Cold Pack/Ice Massage,Electric Stimulation,Hot Packs, Ultrasound Next Visit Focus/Plan Next Note Type Treatment Note Next Visit Plan give pt further abd strength, add strengthening, hip flex strength, clamshells for home, cont to work manually-gentle to iliacus d/t inguinal hernia repairs this year
--- NOTE | 2024-11-14 13:46 | PT.OTN ---
Current Diagnoses Low back pain, unspecified (11/14/24) Strain of muscle, fascia and tendon at neck level, subsequent encounter (11/14/24) Unspecified fall, subsequent encounter (11/14/24) Physical Therapy Treatment Note PT OP: Full Body Start: 11/08/24 17:06 Freq: Status: Active Protocol: Document 11/14/24 13:02 [facility] (Rec: 11/14/24 13:49 [facility] [id number]) Out-Patient Physical Therapy Visit Information Visit Information Visit Type Treatment Note Visit Start Time 13:02 Visit Stop Time 13:46 Visit Number 08/06 Number of SHOP SUPERVISOR Visits 1 Progress Note Due 12/08/24 OP-PT Subjective Patient Comments Patient Comments Pt reports improving and doing longer duration ex, 14 min recumbent bike but be careful when getitng out L gets pop/sensitive L>R sensitivity. He is walking 1/4 mile am then pm and combo gym. R knee vulnerable but continues with stretches and trying be sure strength ex too. Therapeutic Exercises Supine Exercises Piriformis Stretch Supine Exercise Name Reviewed past Side bilateral Resistance L>R tighter Reps/Minutes 30 s Comments good feedback stretch Tball series Supine Exercise Name core series: DKTC, LTR (knee >90deg), bridge roll up/ lower Side bilateral Resistance 55cm tball Reps/Minutes 15 reps each Comments cues slow and control, TA engagement Standing Exercises Adductor Stretch Standing Exercise cues needed for set up Name Side bilateral Equipment Used rail support Reps/Minutes 15 sec x2 each side Comments cued tall posture, opp knee bent inline with forefoot. Resisted Stepping Standing Exercise lateral, fwd, bwd- added to HEP declined HO Name Side bilateral Resistance TB #3 [place] at shins Reps/Minutes 15ft x2 ea Comments cued slow pacing, tall posture, TA draw, foot clearance -good core fwd Neuro Re-Education Treatment Balance Activities Obstacle Course Details very challenging Surface pods, small balance beam, air pad Equipment gait belt Comments CG- Mod A for midline stability and 1 step cues for each LE positioning and midline with core engement stability over TASHIA. DGI Comments 15 Coordination Activities Dynamic Stepping Details Metronome 92bpm fwd, 70bpm bwd, 93 side stepping, 80 bpm grapevine (in PT) Equipment gait belt Reps/Duration many laps Comments CG/Min A, cues for rhomboid, core, midline stability, challenge HTs fwd improved with laps Physical Therapy Assessment Goals ROM Short Term Goal (STG Pt will have cervical rotation to at least 60 B to ) allow greater ease with driving 11/08-62 L, 42 R STG Duration 11/16 Retirement Goal (LTG) Pt will have cervical ext to at least 30 deg to allow greater ease with ADLs 11/08-achieved LTG Duration achieved strength Short Term Goal (STG Pt will be indep w/HEP ) 11/08-some cues still required STG Duration 11/16 Cap Jewel Plate Assembler Goal (LTG) Pt will score at least 4+/5 on all BLE mMT to show improved strength in order to allow greater ease w/ daily tasks 11/08-improving LTG Duration 12/25 DGI Impairment 6 Short Term Goal (STG Pt will score at least 10 on DGI to show dec risk for ) falls. STG Duration achieved 11/08 Retirement Goal (LTG) Pt will score at least 15 on DGI to show dec risk for falls. LTG Duration 12/25 Assessment Summary Assessment Pt good response to core ther ex today over Tball, cues for TA draw in and pnfree AROM. Incorporated resisted stepping today with cues slow pacing LE return open area with no LOB, then progressed dynamic stepping AROM with head turns and multidirectional stepping for core and midline postural corrections with good challenge requiring CG/MIn A and cues patterning during grapevine for safety sequencing to be performed in PT at this time due to support needed and decreased risk for falls . Trialed uneven obstacle course pt required mod A x1 for midline stability and cues for LE sequencing more tandem like stepping. Physical Therapy Plan Frequency and Duration Frequency of 1-2x/wk Treatment Duration of 10 treatment (weeks) Plan of Care Start 10/16/24 Date Plan of Care End 12/25/24 Date Therapeutic Interventions Therapeutic Balance Training,Gait Training,Home Exercise Program, Interventions Joint Mobilizations,Manual Therapy,Neuromuscular Re- education,Patient/Caregiver Education,Self-Care/Home Management,Soft Tissue Mobilization,Taping,Therapeutic Activities,Therapeutic Exercises Modalities Cold Pack/Ice Massage,Electric Stimulation,Hot Packs, Ultrasound Next Visit Focus/Plan Next Note Type Treatment Note Next Visit Plan REcheck resisted stepping lat/fwd/bwd gave last tx, how felt dynamic stepping. POC: give pt further abd strength, add strengthening, hip flex strength, clamshells for home, cont to work manually-gentle to iliacus d/t inguinal hernia repairs this year
--- NOTE | 2024-11-21 15:16 | PT.OTN ---
Current Diagnoses Low back pain, unspecified (11/21/24) Strain of muscle, fascia and tendon at neck level, subsequent encounter (11/21/24) Unspecified fall, subsequent encounter (11/21/24) Physical Therapy Treatment Note PT OP: Full Body Start: 11/08/24 17:06 Freq: Status: Active Protocol: Document 11/21/24 14:35 [facility] (Rec: 11/21/24 15:15 [facility] [id number]) Out-Patient Physical Therapy Visit Information Visit Information Visit Type Treatment Note Visit Start Time 14:34 Visit Stop Time 15:14 Visit Number 09/06 Number of LAST SAWYER Visits 0 Progress Note Due 12/08/24 OP-PT Subjective Patient Comments Patient Comments pt reports he has been more sore since about . He had worked out harder the 2 days before. Been more L groin and L back. Hasn't been able to go as far. Therapeutic Exercises Supine Exercises stretch Supine Exercise Name figure 4 Side bilateral Reps/Minutes 30 sec Comments cues gentle stretching Piriformis Stretch Supine Exercise Name Reviewed past Side bilateral Equipment Used towel roll at groin Reps/Minutes 45 s ea Comments cues gentle Standing Exercises hip flexor stretch Side bilateral Reps/Minutes 30 sec Comments cues neutral spine Adductor Stretch Side bilateral Equipment Used rail support Reps/Minutes 30 sec x2 each side Comments cued tall posture, opp knee bent inline with forefoot. Resisted Stepping Standing Exercise lateral, fwd, bwd Name Side bilateral Resistance TB #3 [place] at shins Reps/Minutes 15ft x3 fwd, 15ft back, lat 15ftx2 Comments cued slow pacing, tall posture, TA draw, foot clearance -good core fwd Neuro Re-Education Treatment Balance Activities tandem Comments fwd walk w/2 fingers on rail 2x15ft grapevine Comments 15ftx2 Physical Therapy Assessment Goals ROM Short Term Goal (STG Pt will have cervical rotation to at least 60 B to ) allow greater ease with driving 11/08-62 L, 42 R STG Duration 11/16 Edger Machine Setter Goal (LTG) Pt will have cervical ext to at least 30 deg to allow greater ease with ADLs 11/08-achieved LTG Duration achieved strength Short Term Goal (STG Pt will be indep w/HEP ) 11/08-some cues still required STG Duration 11/16 Edger Machine Setter Goal (LTG) Pt will score at least 4+/5 on all BLE mMT to show improved strength in order to allow greater ease w/ daily tasks 11/08-improving LTG Duration 12/25 DGI Impairment 6 Short Term Goal (STG Pt will score at least 10 on DGI to show dec risk for ) falls. STG Duration achieved 11/08 Half-Way Goal (LTG) Pt will score at least 15 on DGI to show dec risk for falls. LTG Duration 12/25 Assessment Summary Assessment Pt did well with manual with noted feeling a little more ROM. cues needed with stretches for proper positioning and posture during resisted stepes. Physical Therapy Plan Frequency and Duration Frequency of 1-2x/wk Treatment Duration of 10 treatment (weeks) Plan of Care Start 10/16/24 Date Plan of Care End 12/25/24 Date Next Visit Focus/Plan Next Note Type Treatment Note Next Visit Plan cont to review HEP as needed: give pt further abd strength, add strengthening, hip flex strength, clamshells for home, cont to work manually-gentle to iliacus d/t inguinal hernia repairs this year
--- NOTE | 2024-12-04 11:41 | PT.OTN ---
Current Diagnoses Low back pain, unspecified (12/04/24) Strain of muscle, fascia and tendon at neck level, subsequent encounter (12/04/24) Unspecified fall, subsequent encounter (12/04/24) Physical Therapy Treatment Note PT OP: Full Body Start: 11/08/24 17:06 Freq: Status: Active Protocol: Document 12/04/24 10:49 [facility] (Rec: 12/04/24 11:35 [facility] [id number]) Out-Patient Physical Therapy Visit Information Visit Information Visit Type Treatment Note Visit Note * PN next visit MARIN Dobbs provided manual and ther ex instruction during tx with permission of patient, while under direct instruction of JESUSITA Ascencio. Visit Start Time 10:49 Visit Stop Time 11:41 Visit Number 10/06 Number of SALES LEAD Visits 1 Progress Note Due 12/08/24 OP-PT Subjective Patient Comments Patient Comments Pt reports pain in L hip and LB. Not as active at gym recently, was stretching and caused a cramp in calf that was to much and radiated up leg into back. Took some meds for pain relief support. Is 8/10 at arrival today. He is able to do 20 min on recumbent bike or until hurts, 1/2 mile walking daily but modify if needed due to back pain, level ([place]) or slight uneven surface. Hasn't been able to adductor/ abductor machine. Gym Equipment Shuttle Recovery Bilateral Squats Details focus on avoiding hyperext but going to full ext Resistance 62>87# (3 navy) Shuttle Recovery Stable Platform Reps/Time 10 reps each resistance- last rep caused R adductor cramp so stopped Shuttle Balance red Details WBOS, stagger stance, head turns, Reps/Duration 4 min Comments CGA to minimal A staionary, wt shift fwd/bwd HTs as tolerated add Therapeutic Exercises Supine Exercises stretch Supine Exercise Name figure 4 Side bilateral Equipment Used opposite leg straight Reps/Minutes 30 sec Comments cues gentle stretching, slow motion, painfree range, PPT/TA support Piriformis Stretch Supine Exercise Name Reviewed past Side bilateral Equipment Used 1. towel support pulling knee to opp shld L 2. towel anterior groin R Reps/Minutes 45 s ea Comments cues gentle motion and stretch, not into pain Standing Exercises hip flexor stretch Standing Exercise after shuttle recovery Name Side bilateral Reps/Minutes 30 sec Comments cues neutral spine Adductor Stretch Standing Exercise after shuttle recovery Name Side bilateral Equipment Used rail support Reps/Minutes 30 sec x2 each side Comments cued tall posture, opp knee bent inline with forefoot. Manual Therapy Treatment Consent Patient gave verbal Yes consent for manual treatment Soft Tissue Mobilization mid/low back Body Location R ER, paraspinal, QL Mobilization Type Myofascial Release,Rolling Intensity/Depth MInimal Body Position L SL Comments broad pressure L>R tightness Electric Stimulation Electric Stimulation Interferential Current (IFC) Body Location LS Intensity 25 Target/Sweep Target Patient Position Prone Combined With Heat/ Cold Pack Cold Comments X10 arellano within reach Physical Therapy Assessment Goals ROM Short Term Goal (STG Pt will have cervical rotation to at least 60 B to ) allow greater ease with driving 11/08-62 L, 42 R STG Duration 11/16 Apprentice Architect Goal (LTG) Pt will have cervical ext to at least 30 deg to allow greater ease with ADLs 11/08-achieved LTG Duration achieved strength Short Term Goal (STG Pt will be indep w/HEP ) 11/08-some cues still required STG Duration 11/16 Prison Goal (LTG) Pt will score at least 4+/5 on all BLE mMT to show improved strength in order to allow greater ease w/ daily tasks 11/08-improving LTG Duration 12/25 DGI Impairment 6 Short Term Goal (STG Pt will score at least 10 on DGI to show dec risk for ) falls. STG Duration achieved 11/08 Apprentice Architect Goal (LTG) Pt will score at least 15 on DGI to show dec risk for falls. LTG Duration 12/25 Assessment Summary Assessment Pt good feedback response to manual and stretching, cues for neutral spine and TA facilitation, improved decreased low back compensations and good additive hip flexor and adductor stretch with further hip ER AROM, which reported was tight at arrival. CUes for posture, core engagement and glut engagement over stance during shuttle balance improved decrease UE support and ability to initiate more challenge head turns tires after few reps. Improved decrease LB pain after modalities end of tx form 8 at arrival to 10/04 before left. Physical Therapy Plan Frequency and Duration Frequency of 1-2x/wk Treatment Duration of 10 treatment (weeks) Plan of Care Start 10/16/24 Date Plan of Care End 12/25/24 Date Therapeutic Interventions Therapeutic Balance Training,Gait Training,Home Exercise Program, Interventions Joint Mobilizations,Manual Therapy,Neuromuscular Re- education,Patient/Caregiver Education,Self-Care/Home Management,Soft Tissue Mobilization,Taping,Therapeutic Activities,Therapeutic Exercises Modalities Cold Pack/Ice Massage,Electric Stimulation,Hot Packs, Ultrasound Next Visit Focus/Plan Next Note Type Treatment Note Next Visit Plan * PN next visit 12/10/24. POC: ont to review HEP as needed: give pt further abd strength, add strengthening, hip flex strength, clamshells for home, cont to work manually adn modalities as needed-gentle to iliacus d/t inguinal hernia repairs this year
--- NOTE | 2024-12-10 13:45 | PT.OPPOC ---
Addendum entered and electronically signed by Cristina Lee, PT 12/10/24 16:15: POC sent Original Note: Physical, Occupational & Speech Therapy At [facility] Current Diagnoses Low back pain, unspecified (12/10/24) Strain of muscle, fascia and tendon at neck level, subsequent encounter (12/10/24) Unspecified fall, subsequent encounter (12/10/24) Visit Care Team Role Provider Type Abbey Euceda MD Attending Provider Non-Staff Family Provider Primary Care Provider Referring Provider Specialty: Family Practice Address: [address] [place] [address], [phone] Email: Plan Of Care PT OP: Full Body Start: 11/08/24 17:06 Freq: Status: Active Protocol: Document 12/10/24 13:02 [facility] (Rec: 12/10/24 13:45 [facility] [id number]) Out-Patient Physical Therapy Visit Information Visit Information Visit Type Progress Note Visit Start Time 13:04 Visit Stop Time 13:44 Visit Number 11/06 Number of ADJUNCT HISTORY INSTRUCTOR Visits 0 Progress Note Due 01/09/25 OP-PT Subjective Patient Comments Patient Comments Was in a lot of pain prior to last appt and treatment was very helpful. Back to 12 min on recumbent bike and 1/2 mile (1/4 mile twice a day) and doing lunges [place] pier. Functional Tests Dynamic Gait Index (DGI) Score 16/24 Cervical Spine Range of Motion Cervical Spine Active Degrees Rotation Left 67 Rotation Right 68 Hip Strength Hip Manual Muscle Testing Right Flexion (L2) 4- Good- Extension (S1) 4+ Good+ Abduction 4+ Good+ Adduction 4+ Good+ External Rotation 4 Good Internal Rotation 4 Good Left Flexion (L2) 4- Good- Extension (S1) 3 Fair Abduction 4+ Good+ Adduction 4 Good External Rotation 4 Good Internal Rotation 4- Good- Comments pain groin w/ IR L ; pain back w/hip abd and ext L Knee Strength Knee Manual Muscle Testing Right Flexion (S2) 5 Normal Extension (L3) 5 Normal Left Flexion (S2) 5 Normal Extension (L3) 5 Normal Ankle/Foot Strength Ankle and Foot Manual Muscle Testing Right Dorsiflexion (L4) 5 Normal Plantarflexion (S1) 5 Normal Comments PF tested seated B Left Dorsiflexion (L4) 5 Normal Plantarflexion (S1) 5 Normal Therapeutic Exercises Sidelying Exercises reverse clamshell Side bilateral Reps/Minutes 15 Comments cues slow eccentric hip add Side bilateral Reps/Minutes 15 Comments cues set up and hip positioning Standing Exercises abd Side bilateral Equipment Used Lvl 1 Reps/Minutes 04 june Side bilateral Equipment Used Lvl 1 on feet Reps/Minutes 15 Comments cues posture and core Manual Therapy Treatment Consent Patient gave verbal Yes consent for manual treatment Soft Tissue Mobilization B hips Body Location L adductors, ilicus Mobilization Type Rolling,Sustained Pressure Joint Mobilizations hip Comments L inf c/r Physical Therapy Assessment Goals ROM Short Term Goal (STG Pt will have cervical rotation to at least 60 B to ) allow greater ease with driving 11/08-62 L, 42 R STG Duration achieved 12/10 Fpc Goal (LTG) Pt will have cervical ext to at least 30 deg to allow greater ease with ADLs 11/08-achieved LTG Duration achieved strength Short Term Goal (STG Pt will be indep w/HEP ) 11/08-some cues still required STG Duration 11/16 Digital Producer Goal (LTG) Pt will score at least 4+/5 on all BLE mMT to show improved strength in order to allow greater ease w/ daily tasks 11/08-improving [id number] strength L>R limited still LTG Duration 12/25 DGI Impairment 6 Short Term Goal (STG Pt will score at least 10 on DGI to show dec risk for ) falls. STG Duration achieved 11/08 Fpc Goal (LTG) Pt will score at least 15 on DGI to show dec risk for falls. 12/10-achieved to 16 progress goal to at least 20 to show low risk for falls LTG Duration 02/25 Assessment Summary Assessment Pt making progress with PT with improving balance, LE strength but still c/o L groin pain as main issue. Neck pain mch improved also w/PT along w/ROM. DGI still shows risk for falls despite improvements in it. Would benefit from cont PT to work on hip/core strength and balance to dec groin pain. Physical Therapy Plan Frequency and Duration Frequency of 1-2x/wk Treatment Duration of 12 treatment (weeks) Plan of Care Start 12/10/24 Date Plan of Care End 03/10/25 Date Therapeutic Interventions Therapeutic Balance Training,Gait Training,Home Exercise Program, Interventions Joint Mobilizations,Manual Therapy,Neuromuscular Re- education,Patient/Caregiver Education,Self-Care/Home Management,Soft Tissue Mobilization,Taping,Therapeutic Activities,Therapeutic Exercises Modalities Cold Pack/Ice Massage,Electric Stimulation,Hot Packs, Ultrasound Next Visit Focus/Plan Next Note Type Treatment Note Next Visit Plan cont to work on HEP for hip and core Plan of Care Dates Plan of Care Start Date 12/10/24 Plan of Care End Date 03/10/25 Electronically Signed by: Cristina Lee, PT 12/10/24 2128 If you are in agreement with this Plan of Care, please return a signed and dated copy. I have reviewed this Plan of Care and certify that the skilled therapy services above are required to meet the patient?s needs. Physician Signature Date Printed Name and Credentials Clinical Instructor Signature Printed Name and Credentials
--- NOTE | 2024-12-20 13:53 | PT.OTN ---
Current Diagnoses Low back pain, unspecified (12/20/24) Strain of muscle, fascia and tendon at neck level, subsequent encounter (12/20/24) Unspecified fall, subsequent encounter (12/20/24) Physical Therapy Treatment Note PT OP: Full Body Start: 11/08/24 17:06 Freq: Status: Active Protocol: Document 12/20/24 13:01 SP (Rec: 12/20/24 14:22 SP [id number]) Out-Patient Physical Therapy Visit Information Visit Information Visit Type Treatment Note Visit Start Time 13:01 Visit Stop Time 13:53 Visit Number 12/07 Number of DOOR LINER HELPER Visits 1 Progress Note Due 01/09/25 OP-PT Subjective Patient Comments Patient Comments Was at gym today. Walking 3x/day about .5 miles each. Still having groin pain on R. REcumbent bike not at 15 min yet only 14.5 min. He is compliant with stretching and . Concentrating on posture walking and trying incorporated head turns with balance, seeing progress. Responds well with to manual mobes and STMs after tx. He has been incorporating Aero Glass up/down Sportlyzer with little to no UE support for carryover outside PT. Therapeutic Exercises Supine Exercises stretch Supine Exercise Name figure 4 Side bilateral Equipment Used opposite leg straight Reps/Minutes 30 sec Comments cues gentle stretching, slow motion, painfree range, PPT/TA support Piriformis Stretch Supine Exercise Name Reviewed past with hip mob inferolateral Side bilateral Equipment Used 1. towel support pulling knee to opp shld each LE 2 towel anterior groin R Reps/Minutes 45 s ea Comments cues gentle motion and stretch, not into pain Standing Exercises dynamic stepping Standing Exercise lunge and grapevine Name Resistance AROM Equipment Used light contact rail lunge, PRN grapevine Reps/Minutes 10 ft x3 laps Comments cued lunge glut and TA support for asc back into standing Other Exercises Self STMs Other Exercise Name verbal review use rolling pin adductor Resistance L>R quadruped Other Exercise Name 1. child's pose wide TASHIA knees apart 2. modified bird dog Equipment Used on forearms Reps/Minutes 1. 60 sec 2. 10 reps each side BUE& BLEs, then just BLEs Comments 1. self adductor stretch 2. core and hip ext strengthening UE and LE vs LE Therapeutic Activity Therapeutic Activity On/off floor Name for ability to do self mobes and any HEP on the floor Reps/Minutes 2 reps Comments cued use of outside support for safety due to noted challenging/slight unsteady lunge stance slow grading to floor and RLE stronger in front position to help come to standing easier. Self Hip Mobility Name L hip distraction instruction: self inferolateral and anteromedial Reps/Minutes hooklying on floor mat, anchored bottom cable Comments trialed for home carryover support/relief- much cuing for Electric Stimulation Electric Stimulation Interferential Current (IFC) Body Location LS Intensity 27 Target/Sweep Target Patient Position Prone Combined With Heat/ Cold Pack Cold Comments X10 arellano within reach Physical Therapy Assessment Goals ROM Short Term Goal (STG Pt will have cervical rotation to at least 60 B to ) allow greater ease with driving 11/08-62 L, 42 R STG Duration achieved 12/10 Air Pollution Analyst Goal (LTG) Pt will have cervical ext to at least 30 deg to allow greater ease with ADLs 11/08-achieved LTG Duration achieved strength Short Term Goal (STG Pt will be indep w/HEP ) 11/08-some cues still required STG Duration 11/16 Air Pollution Analyst Goal (LTG) Pt will score at least 4+/5 on all BLE mMT to show improved strength in order to allow greater ease w/ daily tasks 11/08-improving 12/1022-[id number]-spp strength L>R limited still LTG Duration 12/25 DGI Impairment 6 Short Term Goal (STG Pt will score at least 10 on DGI to show dec risk for ) falls. STG Duration achieved 11/08 Air Pollution Analyst Goal (LTG) Pt will score at least 15 on DGI to show dec risk for falls. 12/10-achieved to 16 progress goal to at least 20 to show low risk for falls LTG Duration 02/25 Assessment Summary Assessment Pt requires cues for abdominal engagement and LE R>L knee extension wtih level pelvis during quadruped core and hip extension strengthening proper form with improved self corrections during rep progression. Pt demonstrates decrease need for UE support during grapevine and is performing carryover outside PT to improve balance. Pt continues to have L hip groing pain , slight improvement in flexibility after manual, needed to adjust automotive painter pressure with feedback tolerance. Education use of rolling pin seated to adductors for home self relief, verbalized forgot that has been helpful in past. Pt verbalized less L groin pain and back discomfort end tx post ex and modalities, demons trates more midline stabilit leaving. Physical Therapy Plan Frequency and Duration Frequency of 1-2x/wk Treatment Duration of 12 treatment (weeks) Plan of Care Start 12/10/24 Date Plan of Care End 03/10/25 Date Therapeutic Interventions Therapeutic Balance Training,Gait Training,Home Exercise Program, Interventions Joint Mobilizations,Manual Therapy,Neuromuscular Re- education,Patient/Caregiver Education,Self-Care/Home Management,Soft Tissue Mobilization,Taping,Therapeutic Activities,Therapeutic Exercises Modalities Cold Pack/Ice Massage,Electric Stimulation,Hot Packs, Ultrasound Next Visit Focus/Plan Next Note Type Treatment Note Next Visit Plan Continue instruction hip mobes with strap for self relief carryover if understanding can send home with HO . POC: cont to progress HEP for hip and core strengthening
--- NOTE | 2024-12-26 15:44 | PT.OTN ---
Current Diagnoses Low back pain, unspecified (12/26/24) Strain of muscle, fascia and tendon at neck level, subsequent encounter (12/26/24) Unspecified fall, subsequent encounter (12/26/24) Physical Therapy Treatment Note PT OP: Full Body Start: 11/08/24 17:06 Freq: Status: Active Protocol: Document 12/26/24 13:00 PD (Rec: 12/26/24 14:15 PD [id number]) Out-Patient Physical Therapy Visit Information Visit Information Visit Type Treatment Note Visit Note MARIN Dobbs led tx session with direct supervision from JESUSITA Treviño and patient permission. Visit Start Time 13:00 Visit Stop Time 13:55 Visit Number 01/06 Number of BIOINFORMATICIAN Visits 2 Progress Note Due 01/09/25 OP-PT Subjective Patient Comments Patient Comments Pt walked 1/2 mile today. He is doing well, at his normal level of pain, 7/10. He goes to the gym and does stretching and exercises at home every day. He feels like therapy has helped him get stronger and progress in his daily activity. He gets relief from e-stim and ice to his back at end of therapy. Gym Equipment Cable Column (Body Solid) Hip add/adb Details Cues for not over stretching groin, slow in and out Resistance Add at 3 plates, abd at 2 Reps/Time x 10 each Therapeutic Exercises Supine Exercises Bug Supine Exercise Name Trialed bug for HEP addition Side bilateral Reps/Minutes 5 x each side Comments Trialed for addition to HEP to increase core strength, cross body activatio Piriformis Stretch Supine Exercise Name Reviewed past with hip mob inferolateral Side bilateral Equipment Used 1. towel support pulling knee to opp shld each LE 2 towel anterior groin R Reps/Minutes 45 s ea Comments cues gentle motion and stretch, not into pain Bridge Supine Exercise Name Reviewed from HEP Side bilateral Resistance L2 around knees Reps/Minutes 10 BKFO Supine Exercise Name Reviewed from HEP Side bilateral Equipment Used L2 Reps/Minutes 8 ea Sidelying Exercises Open Book Sidelying Exercise Reviewed from HEP Name Side bilateral Reps/Minutes 1 x hold 15-30 sec Comments Pt completes at home with HEP, reports it helps his neck Other Exercises quadruped Other Exercise Name 1. child's pose wide TASHIA knees apart 2. modified bird dog Equipment Used on forearms Reps/Minutes 1. 60 sec 2. 10 reps each side BUE& BLEs, then just BLEs Comments 1. self adductor stretch 2. core and hip ext strengthening UE and LE vs LE Neuro Re-Education Treatment Balance Activities Shuttle Balance Details WBOS and wide tandem for front to back, WBOS for side to side Equipment Shuttle balance on red chain Reps/Duration 5 minutes total Comments Pt balanced 30 with WBOS/front to back and side to side with no UE or gait belt support. Pt balanced 5-15 in wide tandem R, L forward then needed UE/gait belt correction to balance. grapevine Details Bartlett with AW Surface level Equipment 5# AW Reps/Duration 4 x 15' Comments CGA with gaitbelt for safety, at bar, cues to use UE at bar only as needed. AW added for additional challenge. Pt does with no AW in HEP. hurdles Details 6 hurdles, forward, sideways Surface level Equipment 5# AW Reps/Duration 4 x 15' each direction Comments Gait belt with CGA for safety, at bar, cues for minimal use of bar only as needed and high steps, slow and focus on clearing hurdles. Electric Stimulation Electric Stimulation Interferential Current (IFC) Body Location LS Intensity 26 Target/Sweep Target Patient Position Prone Combined With Heat/ Cold Pack Cold Comments X10 arellano within reach Physical Therapy Assessment Goals ROM Short Term Goal (STG Pt will have cervical rotation to at least 60 B to ) allow greater ease with driving 11/08-62 L, 42 R STG Duration achieved 12/10 Care Home Goal (LTG) Pt will have cervical ext to at least 30 deg to allow greater ease with ADLs 11/08-achieved LTG Duration achieved strength Short Term Goal (STG Pt will be indep w/HEP ) 11/08-some cues still required STG Duration 11/16 Care Home Goal (LTG) Pt will score at least 4+/5 on all BLE mMT to show improved strength in order to allow greater ease w/ daily tasks 11/08-improving 12/1075-yhppdsdor-lqm strength L>R limited still LTG Duration 12/25 DGI Impairment 6 Short Term Goal (STG Pt will score at least 10 on DGI to show dec risk for ) falls. STG Duration achieved 11/08 Conventions Assistant Goal (LTG) Pt will score at least 15 on DGI to show dec risk for falls. 12/10-achieved to 16 progress goal to at least 20 to show low risk for falls LTG Duration 02/25 Assessment Summary Assessment Pt demonstrated HEP exercises with minimal cueing for TA activation, slow movements that could stress his tight R adductors. Pt trialed new bug exercise for core/cross body strengthening and was instructed to add to HEP if it does not cause pain. He does many exercises daily at home and at gym and tries to walk 3 x per day. JESUSITA Treviño reviewed PT goals with patient and noted that he has reached most goals and he might be ready to d/c soon. Physical Therapy Plan Frequency and Duration Frequency of 1-2x/wk Treatment Duration of 12 treatment (weeks) Plan of Care Start 12/10/24 Date Plan of Care End 03/10/25 Date Next Visit Focus/Plan Next Note Type Treatment Note Next Visit Plan Continue to work on strength and balance as needed for goals/ADLs.
--- NOTE | 2025-01-02 14:15 | PT.OPPN ---
Current Diagnoses Low back pain, unspecified (01/02/25) Strain of muscle, fascia and tendon at neck level, subsequent encounter (01/02/25) Unspecified fall, subsequent encounter (01/02/25) Physical Therapy Progress Note PT OP: Full Body Start: 11/08/24 17:06 Freq: Status: Active Protocol: Document 01/02/25 13:02 [facility] (Rec: 01/02/25 14:15 [facility] [id number]) Out-Patient Physical Therapy Visit Information Visit Information Visit Type Progress Note Visit Start Time 13:06 Visit Stop Time 13:56 Visit Number 02/06 Number of MANAGER PAYROLL Visits 0 Progress Note Due 02/01/25 OP-PT Subjective Patient Comments Patient Comments 13 to 14 min on recumbent bike twice a day and 1/3 mile to 1/2 mile twice a day. L SI pain and L ant hip pain mostly still. Feels like wants to work more on core strengthening Functional Tests Dynamic Gait Index (DGI) Score 20 Hip Strength Hip Manual Muscle Testing Right Flexion (L2) 4+ Good+ Extension (S1) 5 Normal Abduction 4+ Good+ Adduction 4+ Good+ External Rotation 4+ Good+ Internal Rotation 5 Normal Left Flexion (L2) 4+ Good+ Extension (S1) 4+ Good+ Abduction 4 Good Adduction 4 Good External Rotation 4 Good Internal Rotation 4 Good Comments pain groin w/ IR, abd and add L ; jackson in back w/hip ext l Knee Strength Knee Manual Muscle Testing Right Flexion (S2) 5 Normal Extension (L3) 5 Normal Left Flexion (S2) 5 Normal Extension (L3) 5 Normal Ankle/Foot Strength Ankle and Foot Manual Muscle Testing Right Dorsiflexion (L4) 5 Normal Plantarflexion (S1) 5 Normal Comments PF tested seated B Left Dorsiflexion (L4) 5 Normal Plantarflexion (S1) 5 Normal Therapeutic Exercises Supine Exercises bicycles Supine Exercise Name w/small curl up an arms at side -changed pt to bent knee for form Side bilateral LTR Supine Exercise Name cues segmental press down Side bilateral Reps/Minutes 10 ea Bug Supine Exercise Name 1. w/opp LE ext 2. w/march Side bilateral Reps/Minutes 8 ea Comments max cues for coordination and slowing down stretch Supine Exercise Name 1. B SKTC (L w/towel roll) 2. self hip inf glide L Reps/Minutes 1. 20 sec x2 ea 2. 20 sec x2 Comments inc time for set up edu w/self mob Bridge Side bilateral Resistance L2 at pelvis Reps/Minutes 2x10 Manual Therapy Treatment Consent Patient gave verbal Yes consent for manual treatment Soft Tissue Mobilization B hips Body Location L distal iliacus Mobilization Type Rolling,Sustained Pressure Joint Mobilizations pubic bone Comments L inf glide hip Comments L inf glide Electric Stimulation Electric Stimulation Interferential Current (IFC) Body Location LS Intensity 26 Target/Sweep Target Patient Position Prone Combined With Heat/ Cold Pack Cold Comments X10 arellano within reach Physical Therapy Assessment Goals ROM Short Term Goal (STG Pt will have cervical rotation to at least 60 B to ) allow greater ease with driving 11/08-62 L, 42 R STG Duration achieved 12/10 Assisted Goal (LTG) Pt will have cervical ext to at least 30 deg to allow greater ease with ADLs 11/08-achieved LTG Duration achieved strength Short Term Goal (STG Pt will be indep w/HEP ) 11/08-some cues still required 01/02-cues needed w/newer core work STG Duration 11/16 Java Application Engineer Goal (LTG) Pt will score at least 4+/5 on all BLE mMT to show improved strength in order to allow greater ease w/ daily tasks 11/08-improving 12/1085-oueiqtcsa-jod strength L>R limited still LTG Duration 12/25 DGI Impairment 6 Short Term Goal (STG Pt will score at least 10 on DGI to show dec risk for ) falls. STG Duration achieved 11/08 Assisted Goal (LTG) Pt will score at least 15 on DGI to show dec risk for falls. 12/10-achieved to 16 progress goal to at least 20 to show low risk for falls LTG Duration achieved 108 Assessment Summary Assessment Pt improving with strength overall and cont to advance with mobility. Pain still present in L groin that does limit him. Cues still needed w/core exercises and plan to work on indep w/core HEP to DC in next month. Physical Therapy Plan Frequency and Duration Frequency of 1-2x/wk Treatment Duration of 12 treatment (weeks) Plan of Care Start 12/10/24 Date Plan of Care End 03/10/25 Date Therapeutic Interventions Therapeutic Balance Training,Gait Training,Home Exercise Program, Interventions Joint Mobilizations,Manual Therapy,Neuromuscular Re- education,Patient/Caregiver Education,Self-Care/Home Management,Soft Tissue Mobilization,Taping,Therapeutic Activities,Therapeutic Exercises Modalities Cold Pack/Ice Massage,Electric Stimulation,Hot Packs, Ultrasound Next Visit Focus/Plan Next Note Type Treatment Note Next Visit Plan Review core exercises w/plan to DC 01/30
--- NOTE | 2025-01-09 15:58 | PT.OTN ---
Current Diagnoses Low back pain, unspecified (01/09/25) Strain of muscle, fascia and tendon at neck level, subsequent encounter (01/09/25) Unspecified fall, subsequent encounter (01/09/25) Physical Therapy Treatment Note PT OP: Full Body Start: 11/08/24 17:06 Freq: Status: Active Protocol: Document 01/09/25 10:45 PD (Rec: 01/09/25 11:31 PD [id number]) Out-Patient Physical Therapy Visit Information Visit Information Visit Type Treatment Note Visit Note MARIN Dobbs led tx session with direct supervision from JESUSITA Treviño and patient permission. Visit Start Time 10:45 Visit Stop Time 11:40 Visit Number 03/08 Number of BAG LOADER Visits 1 Progress Note Due 02/01/25 OP-PT Subjective Patient Comments Patient Comments Left groin still tight, had a nice walk 0.5 and did some stretching down a [place], worked out at gym for 12 minutes on recumbent bike. Most irritating movement that he does to trigger his groin pain is getting into his car into a low seat. He knows how to move to help it not trigger. This morning he started at 8/10 L side LB, groin pain but he has worked it out so now he is at 6.5/10. Therapeutic Exercises Supine Exercises bicycles Supine Exercise Name w/small curl up an arms at side -changed pt to bent knee for form Side bilateral Reps/Minutes 2 x 15 Comments Cues for form, stay out of pain range LTR Supine Exercise Name cues segmental press down Side bilateral Reps/Minutes 10 ea Bridge Supine Exercise Name Reviewed for HEP with L3 band Side bilateral Resistance L3 at pelvis Reps/Minutes 2x10 with 15 sec hold for first 3 Comments Cues slow down, hold band with good resistance BKFO Supine Exercise Name Reviewed from [facility] Side bilateral Equipment Used L2 Reps/Minutes 2 xn10 ea Sidelying Exercises Open Book Sidelying Exercise Reviewed from [facility] Name Side bilateral Reps/Minutes 3 x hold 15 sec Comments Pt completes at home with HEP, reports it helps his neck Sitting Exercises Piriformis stretch Sitting Exercise Knee across to opposite shoulder Name Side bilateral Reps/Minutes 2 x 30 sec hold Comments Cues for form, stay pain free, let go it is triggering pain Other Exercises Resisted trunk rotation Other Exercise Name Resisted trunk rotation with 2 blue latex free bands held at mid chest Side bilateral Reps/Minutes x 3 each Comments Pt requested review for HEP quadruped Other Exercise Name 1. child's pose wide TASHIA knees apart 2. modified bird dog Equipment Used on forearms Reps/Minutes 1. 60 sec 2. 10 reps each side BUE& BLEs, then just BLEs Comments 1. self adductor stretch 2. core and hip ext strengthening UE and LE vs LE Neuro Re-Education Treatment Balance Activities Shuttle Balance Details WBOS and wide tandem for front to back, WBOS for side to side Equipment Shuttle balance on red chain Reps/Duration 5 minutes total Comments Pt balanced 2 x 60 with WBOS/front to back with no UE support needed. Pt balanced 5-15 in wide tandem R, L forward then needed UE/gait belt correction to balance. Electric Stimulation Electric Stimulation Interferential Current (IFC) Body Location LS Intensity 24 Target/Sweep Target Patient Position Prone Combined With Heat/ Cold Pack Cold Comments X10 arellano within reach Physical Therapy Assessment Goals strength Short Term Goal (STG Pt will be indep w/HEP ) 11/08-some cues still required 01/02-cues needed w/newer core work STG Duration 11/16 Industrial Gas Servicer Helper Goal (LTG) Pt will score at least 4+/5 on all BLE mMT to show improved strength in order to allow greater ease w/ daily tasks 11/08-improving 12/1037-dmnsuqbbl-mul strength L>R limited still LTG Duration 12/25 DGI Impairment 6 Short Term Goal (STG Pt will score at least 10 on DGI to show dec risk for ) falls. STG Duration achieved 11/08 Long-Term Goal (LTG) Pt will score at least 15 on DGI to show dec risk for falls. 12/10-achieved to 16 progress goal to at least 20 to show low risk for falls LTG Duration achieved 01/02 Assessment Summary Assessment Pt improving with core strength and stability during supine exercises, balance on Shuttle Balance. Pt able to demonstrate HEP exercises and provide clear feedback when exercises trigger groin pain. Minimal cues needed for form during exercises. Physical Therapy Plan Frequency and Duration Frequency of 1-2x/wk Treatment Duration of 12 treatment (weeks) Plan of Care Start 12/10/24 Date Plan of Care End 03/10/25 Date Therapeutic Interventions Therapeutic Balance Training,Gait Training,Home Exercise Program, Interventions Joint Mobilizations,Manual Therapy,Neuromuscular Re- education,Patient/Caregiver Education,Self-Care/Home Management,Soft Tissue Mobilization,Taping,Therapeutic Activities,Therapeutic Exercises Modalities Cold Pack/Ice Massage,Electric Stimulation,Hot Packs, Ultrasound Next Visit Focus/Plan Next Note Type Treatment Note Next Visit Plan Pt pending insurance approval for further appts. If approved, review core exercises w/plan to DC 01/30
--- NOTE | 2025-01-17 09:57 | PT-OP ANOTE ---
Pt did not show for appt today, PORTER LUGGAGE called pt, pt stated called yesterday and cancelled today's appt due to unable to make appt today due to another commitment, planner/scheduler added another appt as a make up for today after already scheduled appts for Feb 13 so doesn't miss out. He verbalized understands the plan was to finish up physical therapy at the last PT appt on 01/30. He stated will talk to PT if going to keep 02/13 or cancel at the 01/30 appt. PORTER LUGGAGE chart reviewed and another appt was added on 02/13 was made on 01/15/25, planner/scheduler might have forgotten to delete today's appt. PORTER LUGGAGE asked planner/scheduler to delete today's appt and request pt not be charged for NS today.
--- NOTE | 2025-01-22 12:15 | PT.OTN ---
Current Diagnoses Low back pain, unspecified (01/22/25) Strain of muscle, fascia and tendon at neck level, subsequent encounter (01/22/25) Unspecified fall, subsequent encounter (01/22/25) Physical Therapy Treatment Note PT OP: Full Body Start: 11/08/24 17:06 Freq: Status: Active Protocol: Document 01/22/25 11:35 SP (Rec: 01/22/25 12:30 SP [id number]) Out-Patient Physical Therapy Visit Information Visit Information Visit Type Treatment Note Visit Note MARIN Dobbs led tx session with direct supervision from JESUSITA Treviño and patient permission. 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 L groin still seems to be bothersome but stretching. Cardio Equipment Elliptical Duration (Minutes) 4 Resistance 4 Other Moving BUEs. Gym Equipment Shuttle Balance red Details WBOS & Stagger Stance Reps/Duration 4 min Comments CGA to minimal A wt shift fwd/bwd, stationary with HTs as tolerated Therapeutic Exercises Supine Exercises bicycles Supine Exercise Name w/small curl up an arms at side -changed pt to bent knee for form Side bilateral Equipment Used arms at side on table Reps/Minutes 2 x 30 sec Comments Cues for slow LE form, PPT pericscap engagement stretch Supine Exercise Name FIg 4 Side bilateral Equipment Used opp LE long axis Reps/Minutes 30 sec x2 each LE Comments foot on medial patella vs inner thigh at mid jt line comfort Piriformis Stretch Supine Exercise Name Reviewed past with hip mob inferolateral Side left Equipment Used knee to opp shld Reps/Minutes 30 s ea Comments cues gentle motion and stretch, not into pain, slow breath Standing Exercises weighted Squats Standing Exercise trialed in PT Name Resistance 10# DB Equipment Used front of mirror Reps/Minutes 10 reps Comments cued hip hinge buttocks back (chair behind for form) squat to D2 flexion over head lift Standing Exercise trialed in PT Name Side bilateral Resistance 5# DB Equipment Used front of mirror Reps/Minutes 10 reps each side Comments cued squat slight rotational motion Other Exercises quadruped Other Exercise Name 1. child's pose wide TASHIA knees apart 2. modified bird dog Reps/Minutes 1. 60 sec 2. 10 reps 5 sec hold each side BUE& BLEs Comments cued slow motion lift/lower, level pelvis, TA needed to support stability Neuro Re-Education Treatment Coordination Activities Dynamic Stepping Details Metronome 96-98bpm fwd with head turns, 88bpm bwd Equipment gait belt Reps/Duration many laps in hallway Comments CG/Min A, cues for rhomboid, core draw in, midline stability, education body alignment wt shift more forward ball of feet and heels, tends to lean back into heels thus causing LOB retro but self corrects by grabbing surroundings. Improved increase metronome speed today and cues for increase stride backward with body positioning more forefoot. Self-Care/Home Management Treatment Education Patient Education Body Mechanics,Home Exercise Program,Posture Other Education Educational cues for trunk more forward wt shift during backward gait for stability and when stops stationary. Physical Therapy Assessment Goals strength Short Term Goal (STG Pt will be indep w/HEP ) 11/08-some cues still required 01/02-cues needed w/newer core work STG Duration 11/16 Snf Goal (LTG) Pt will score at least 4+/5 on all BLE mMT to show improved strength in order to allow greater ease w/ daily tasks 11/08-improving 12/1058-[id number] strength L>R limited still LTG Duration 12/25 DGI Impairment 6 Short Term Goal (STG Pt will score at least 10 on DGI to show dec risk for ) falls. STG Duration achieved 11/08 Snf Goal (LTG) Pt will score at least 15 on DGI to show dec risk for falls. 12/10-achieved to 16 progress goal to at least 20 to show low risk for falls LTG Duration achieved 01/02 Assessment Summary Assessment Pt improved core engagement and trunk alignment with skilled cuing and use of metronome tolerated increased speed today. Pt improved body awareness corrections more forward after education awarenes. Physical Therapy Plan Frequency and Duration Frequency of 1-2x/wk Treatment Duration of 12 treatment (weeks) Plan of Care Start 12/10/24 Date Plan of Care End 03/10/25 Date Therapeutic Interventions Therapeutic Balance Training,Gait Training,Home Exercise Program, Interventions Joint Mobilizations,Manual Therapy,Neuromuscular Re- education,Patient/Caregiver Education,Self-Care/Home Management,Soft Tissue Mobilization,Taping,Therapeutic Activities,Therapeutic Exercises Modalities Cold Pack/Ice Massage,Electric Stimulation,Hot Packs, Ultrasound Next Visit Focus/Plan Next Note Type Treatment Note Next Visit Plan Approved for 12 more visits. POC: review core exercises and balance w/plan to DC
--- NOTE | 2025-01-30 12:22 | PT.OPDS ---
Current Diagnoses Low back pain, unspecified (01/30/25) Strain of muscle, fascia and tendon at neck level, subsequent encounter (01/30/25) Unspecified fall, subsequent encounter (01/30/25) Visit Care Team Role Provider Type Abbey Euceda MD Attending Provider Non-Staff Family Provider Primary Care Provider Referring Provider Specialty: Family Practice Address: [address] [place] [address], [place], [phone] Email: Visit Number Visit Number 13 total, 04/08 approved visits (as of 01/10) Discharge Summary PT OP: Full Body Start: 11/08/24 17:06 Freq: Status: Active Protocol: Document 01/30/25 11:36 [facility] (Rec: 01/30/25 12:22 [facility] [id number]) Out-Patient Physical Therapy Visit Information Visit Information Visit Type Discharge Summary Visit Start Time 11:37 Visit Stop Time 12:15 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 Last couple weeks with his doctor have been really good. Talking about autophagy to help with BP. Hip Strength Hip Manual Muscle Testing Right Flexion (L2) 4+ Good+ Extension (S1) 5 Normal Abduction 4+ Good+ Adduction 4+ Good+ External Rotation 4+ Good+ Internal Rotation 5 Normal Left Flexion (L2) 4+ Good+ Extension (S1) 4+ Good+ Abduction 4+ Good+ Adduction 4+ Good+ External Rotation 4+ Good+ Internal Rotation 4+ Good+ Gym Equipment Shuttle Balance red Comments fwd, lat: WBOS fwd: NBOS, staggered stance B Therapeutic Exercises Supine Exercises self mobs Supine Exercise Name hip inf mob Side left Reps/Minutes 30sec x3 Comments cues set up bicycles Supine Exercise Name head down Side bilateral Reps/Minutes 10 Comments min cues back down and slowing down LTR Supine Exercise Name cues segmental press down Side bilateral Reps/Minutes 8ea Bug Supine Exercise Name 1. w/opp LE ext Side bilateral Reps/Minutes 10 Comments max cues for coordination and slowing down and breathing Manual Therapy Treatment Consent Patient gave verbal Yes consent for manual treatment Soft Tissue Mobilization B hips Body Location L distal iliacus and TFL Mobilization Type Rolling,Sustained Pressure Joint Mobilizations hip Comments L distraction and inf glide Neuro Re-Education Treatment Balance Activities firm Comments review of tandem, SLS B, NBOS EC by stable surface Physical Therapy Assessment Goals strength Short Term Goal (STG Pt will be indep w/HEP ) 11/08-some cues still required 01/02-cues needed w/newer core work STG Duration achieved Commission Sales Associate Goal (LTG) Pt will score at least 4+/5 on all BLE mMT to show improved strength in order to allow greater ease w/ daily tasks 11/08-improving 12/1056-[id number] strength L>R limited still LTG Duration achieved 11/5 DGI Impairment 6 Short Term Goal (STG Pt will score at least 10 on DGI to show dec risk for ) falls. STG Duration achieved 11/08 Commission Sales Associate Goal (LTG) Pt will score at least 15 on DGI to show dec risk for falls. 12/10-achieved to 16 progress goal to at least 20 to show low risk for falls LTG Duration achieved 10/8 Assessment Summary Assessment At this time, pt has met goals and is ready for DC. DC pt to HEP. Pt has made great progress with strength, balance and activity tolerance with this bout of PT Physical Therapy Plan Discharge Physical Therapy Discharge Reasons Goals Met
== END 2025-01-30 13:43 | disposition home or self-care (01) ==
LOC: PHYS 11:30
PROVIDERS: Family Provider Family Medicine; PCP Family Medicine; Referring Provider Family Medicine; Visit Provider Family Medicine
DX: M54.50 Low back pain, unspecified (principal); S16.1XXD Strain of muscle, fascia and tendon at neck level, subsequent encounter; W19.XXXD Unspecified fall, subsequent encounter
CPT/HCPCS: 97014; 97110; 97112; 97140; 97163; 97530; G0283